=== PATIENT | female | born 1975 | race Caucasian/White ===

== ENCOUNTER 2016-04-16 14:57 | Emergency (ER) | payer OTHER ==
[~2016-04-16] VITALS: Ht 162.6 cm; Wt 94.9 kg
[~2016-04-16 14:57] MED LIST: ALBU18002 PO; HYDR-5688 PO
[2016-04-16 15:03] VITALS: TEMP 36.6; Ht 162.6 cm; Wt 94.9 kg
--- NOTE | 2016-04-16 15:23 | EMERGENCY ROOM VISIT NOTE ---
History First contact with patient: 15:05 Chief Complaint: BACK PAIN Stated Complaint: CHEST PAIN History of Present Illness The patient is a 41 year old female who presents to the Emergency Room with complaints of low back pain Back pain started this morning woke her up from sleep. Chronic back pain 1-2/10 , but today 10/10 severity. Radiating up along spine and into chest. Constant. Sharp pressure pain. Exacerbated by movement, but even sitting/stnading/lying still does no relieve the pain. Unsure of pain trigger. Experiencing psychological reduced ROM because she's afraid to hurt her back further. Cervical ROM preserved but painful especially on forward flexion and flexion to left. Patient is able to ambulate. Tingling in the fingertip. No saddle paresthesia. No fecal or urinary incontinence. Takes neurontin, but not helpful today. Chest pain started today around lunch. Described as a sharp pain that fades to dull pain at centre of chest. Intermittent. worse on inspiration. Currently having the symptoms. No dyspnea at rest. when very painful, difficult to get air in. Nausea when severe pain present. No vomiting. No abdominal pain, no diarrhea or constipation No fever or URI symptoms. No trauma recently, no falls Never smoker, no long haul flights or long commutes, on OCP, never smoker No hx clots in lungs or legs Review of Systems See HPI for pertinent positives and negatives. A total of ten systems were reviewed and were otherwise negative. Past Medical/Surgical History Medical Problems: (1) Anxiety State Nos (2) Asthma (3) Asthma, Unspecified (4) Bipolar II disorder (5) Chronic back pain (6) Depression (7) Kidney stone (8) Migraine Unspecified W/O Intractable Migraine (9) Pancreatitis (10) Pyelonephritis (11) Suicidal Ideation Surgical Problems: (1) S/P cholecystectomy Family History Diabetes mellitus FH: cancer FH: heart disease FH: lung disease FHx: gallbladder disease Kidney disease or stones Social History Smoking Status: Never Smoker Alcohol Use: none Drug Use: none Marital Status: single Housing Status: lives with family Occupation Status: disabled Current/Historical Medications Scheduled Control Pills ( Control Pills), 1 TAB PO DAILY Dicyclomine HCl (Dicyclomine HCl), 20 MG PO BID Fluticasone Propionate (Fluticasone Propionate), 2 SPRAYS JERRY QAM Fluticasone Propionate (Inhala (Flovent Diskus), 1 PUFF INH BID Gabapentin (Gabapentin), 600 MG PO TID Hydroxyzine HCl (Hydroxyzine Pamoate), 75 MG PO HS Lamotrigine (Lamotrigine), 200 MG PO QAM Levothyroxine Sodium (Levothyroxine Sodium), 50 MCG PO QAM Loratadine (Claritin), 10 MG PO QAM Pantoprazole (Pantoprazole Sodium), 40 MG PO QAM Prazosin Hcl (Prazosin), 4 MG PO HS Topiramate (Topiramate), 100 MG PO BID Venlafaxine Hcl (Effexor Extended Rel), 150 MG PO QAM Scheduled PRN Albuterol Sulfate (Proair Respiclick), 2 PUFFS PO Q4 PRN for Cough Cyclobenzaprine Hcl (Flexeril), 10 MG PO HS PRN for Muscle Spasms Epinephrine (Epipen), 0.3 MG IM UD PRN for ALLERGIC REACTION Hydrocodone/Acetaminophen 5MG/325MG ([place] 5MG/325MG), 1 TABLET PO Q6 PRN for Pain Sumatriptan Succinate (Imitrex), 100 MG PO UD PRN for Migraine Allergies Coded Allergies: Morphine (Verified Adverse Reaction, Intermediate, HALLUCINATIONS, 04/16/16) Physical Exam Vital Signs Date Time Temp Pulse Resp B/P Pulse Ox O2 Delivery O2 Flow Rate FiO2 04/16/16 18:41 89 18 146/96 95 Room Air 04/16/16 17:39 78 18 136/96 97 Room Air 04/16/16 16:54 86 16 157/101 97 Room Air 04/16/16 15:06 89 04/16/16 15:03 36.6 88 18 155/95 95 Room Air Physical Exam GENERAL: alert, well appearing, thin, sitting in bed, mild distress, non-toxic HEAD: Normocephalic, atraumatic. No sinus tenderness. EYES: PERRL, EOMI, normal conjunctiva OROPHARYNX: no exudate, no erythema, lips, buccal mucosa, and tongue normal and mucous membranes are moist NECK: supple, no nuchal rigidity, no adenopathy, non-tender LUNGS: Clear to auscultation. Normal chest wall mechanics, good air entry. No crepitations, crackles, or wheezes HEART: no murmurs, S1 normal and S2 normal CHEST: No reproducible tenderness. ABDOMEN: abdomen soft, non-tender, normo-active bowel sounds, no masses, no rebound or guarding. BACK: Back is symmetrical on inspection, no deformities, midline tenderness at l4 and L5 region and t2-T3 region, localized, no CVA tenderness. SKIN: Warm, pink, dry. No erythema, rashes, or bruising. EXTREMITIES: Grossly normal. Moving all 4 limbs, strength 5/5. No pitting edema. Calves non tender. NEURO: Alert, Ox3. No focal deficits. Normal sensorium, cranial nerves II-XII grossly intact, normal speech. Kernig and Brudzinski negative PSYCH: Mood and affect appropriate. Medical Decision & Procedures ER Provider Diagnostic Interpretation: CHEST ONE VIEW PORTABLE CLINICAL HISTORY: Pleuritic chest pain. Chest pressure. COMPARISON STUDY: 03/12/2016 FINDINGS: The heart is at the upper limits of normal in size. There is no failure. There is no focal pulmonary consolidation. There are no pleural effusions.[ IMPRESSION: No active disease in the chest. Laboratory Results 04/16/16 16:15 Red Blood Count 4.26, Mean Corpuscular Volume 87.3, Mean Corpuscular Hemoglobin 29.3, Mean Corpuscular Hemoglobin Concent 33.6, Mean Platelet Volume 8.6, Neutrophils (%) (Auto) 64.4, Lymphocytes (%) (Auto) 28.2, Monocytes (%) (Auto) 5.1, Eosinophils (%) (Auto) 1.2, Basophils (%) (Auto) 0.5, Neutrophils # (Auto) 6.59, Lymphocytes # (Auto) 2.88, Monocytes # (Auto) 0.52, Eosinophils # (Auto) 0.12, Basophils # (Auto) 0.05 04/16/16 16:15 Test 04/16/16 16:15 04/16/16 17:27 White Blood Count 10.22 K/uL (4.8-10.8) Red Blood Count 4.26 M/uL (4.2-5.4) Hemoglobin 12.5 g/dL (12.0-16.0) Hematocrit 37.2 % (37-47) Mean Corpuscular Volume 87.3 fL (80-100) Mean Corpuscular Hemoglobin 29.3 pg (25-34) Mean Corpuscular Hemoglobin Concent 33.6 g/dl (32-36) Platelet Count 336 K/uL (130-400) Mean Platelet Volume 8.6 fL (7.4-10.4) Neutrophils (%) (Auto) 64.4 % Lymphocytes (%) (Auto) 28.2 % Monocytes (%) (Auto) 5.1 % Eosinophils (%) (Auto) 1.2 % Basophils (%) (Auto) 0.5 % Neutrophils # (Auto) 6.59 K/uL (1.4-6.5) Lymphocytes # (Auto) 2.88 K/uL (1.2-3.4) Monocytes # (Auto) 0.52 K/uL (0.11-0.59) Eosinophils # (Auto) 0.12 K/uL (0-0.5) Basophils # (Auto) 0.05 K/uL (0-0.2) RDW Standard Deviation 40.8 fL (36.4-46.3) RDW Coefficient of Variation 12.7 % (11.5-14.5) Immature Granulocyte % (Auto) 0.6 % Immature Granulocyte # (Auto) 0.06 K/uL (0.00-0.02) Anion Gap 9.0 mmol/L (3-11) Est Creatinine Clear Calc Drug Dose 90.1 ml/min Estimated GFR () 90.8 Estimated GFR (Non- 78.3 BUN/Creatinine Ratio 13.8 (10-20) Calcium Level 8.8 mg/dl (8.5-10.1) Troponin I < 0.015 ng/ml (0-0.045) Urine Color YELLOW Urine Appearance CLOUDY (CLEAR) Urine pH 7.5 (4.5-7.5) Urine Specific [place] 1.020 (1.000-1.030) Urine Protein NEG (NEG) Urine Glucose (UA) NEG (NEG) Urine Ketones NEG (NEG) Urine Occult Blood NEG (NEG) Urine Nitrite NEG (NEG) Urine Bilirubin NEG (NEG) Urine Urobilinogen NEG (NEG) Urine Leukocyte Esterase SMALL (NEG) Urine WBC (Auto) 10-30 /hpf (0-5) Urine RBC (Auto) 0-4 /hpf (0-4) Urine Hyaline Casts (Auto) 1-5 /lpf (0-5) Urine Epithelial Cells (Auto) >30 /lpf (0-5) Urine Bacteria (Auto) 2+ (NEG) Urine Test NEG (NEG) Medications Administered Medications (Trade) Dose Ordered Sig/Shelli Route Start Time Stop Time Status Last Admin Dose Admin Ondansetron HCl (Zofran Inj) 4 mg NOW STAT IV 04/16/16 15:46 04/16/16 16:00 DC 04/16/16 16:20 4 MG Ketorolac Tromethamine (Toradol Inj) 30 mg NOW STAT IV 04/16/16 15:46 04/16/16 16:00 DC 04/16/16 16:20 30 MG Hydromorphone HCl (Dilaudid Inj) 1 mg NOW STAT IV 04/16/16 17:32 04/16/16 17:34 DC 04/16/16 17:39 1 MG Medical Decision 41 year old female presented with low back pain, neck pain, chest pain The patient was evaluated in room C11. A complete history and physical exam was performed. Differential diagnoses includes but is not limited to acute coronary syndrome, myocardial infarction, pericarditis, pulmonary embolus, aortic dissection, pneumonia, pneumothorax, musculoskeletal, spine trauma, chronic back pain, infection, inflammation, anxiety Patient was given 30mg IV toradol for symptom relief. EKG showed 78 bpm, normal sinus rhythm, no acute ischemic change, no ectopy, no significant change frpm EKG on 03/12 Lab work was performed. CBC, BMP, troponin were all within normal limits. CXR reported no acute chest pathology Urine screen was negative for , and urinalysis showed contamination, with positive leukocyte esterase and WBC. As such, sample sent for culture. Patient continues to request further management of back. Given her abdominal CT a few days ago, it was explained this is not necessary. Patient given 1mg Dilaudid for further pain management. On discharge, patient advised for conservative management with Tylenol or Motrin for pain relief and ifollow up with PCP, for chronic pain management. Patient understands and agreeable with care plan. Patient discharged home well. Impression Primary Impression: Back pain at L4-L5 level Additional Impressions: Chest pain, Neck pain Departure Information Dispostion Home / Self-Care Condition POOR Referrals Dennis Khan M.D. (PCP) Patient Instructions A Signature Page, My [facility] [place]
[2016-04-16] MEDS ORDERED: ONDANSETRON INJ 2 MG/ML 2 ML VIAL IV STA (15:46)
[2016-04-16] MEDS ORDERED: KETOROLAC TROMETHAMINE 30 MG/ML VIAL IV STA (15:46)
--- NOTE | 2016-04-16 16:22 | DIAGNOSTIC IMAGING REPORT ---
CHEST ONE VIEW PORTABLE CLINICAL HISTORY: Pleuritic chest pain. Chest pressure. COMPARISON STUDY: 03/12/2016 FINDINGS: The heart is at the upper limits of normal in size. There is no failure. There is no focal pulmonary consolidation. There are no pleural effusions.[ IMPRESSION: No active disease in the chest. Electronically signed by: Gray Schultz M.D. 04/16/2016 4:21 PM
[2016-04-16 16:26] LABS: HEMATOCRIT 37.2 % (37-47); MEAN CELL VOLUME 87.3 fL (80-100); MEAN CORPUSCULAR HEMOGLOBIN 29.3 pg (25-34); MEAN CORPUSCULAR HGB CONC 33.6 g/dl (32-36); MEAN PLATELET VOLUME 8.6 fL (7.4-10.4); PLATELET COUNT 336 K/uL (130-400); RED BLOOD COUNT 4.26 M/uL (4.2-5.4); WHITE BLOOD COUNT 10.22 K/uL (4.8-10.8)
[2016-04-16 16:41] LABS: BASO % 0.5 %; BASO ABS # 0.05 K/uL (0-0.2); COMPLETE YES; EOS % 1.2 %; IG% 0.6 %; LYMPH % 28.2 %; LYMPH ABS # 2.88 K/uL (1.2-3.4); MONO % 5.1 %; NEUT % 64.4 %
[2016-04-16 16:54] LABS: BLOOD UREA NITROGEN 12 mg/dl (7-18); BUN/CREATININE RATIO 13.8 (10-20); CALCIUM 8.8 mg/dl (8.5-10.1); CARBON DIOXIDE 23 mmol/L (21-32); CHLORIDE 110 mmol/L (98-107); GLUCOSE 82 mg/dl (70-99); POTASSIUM 3.8 mmol/L (3.5-5.1); SODIUM 142 mmol/L (136-145)
[2016-04-16] MEDS ORDERED: HYDROmorphone INJ 1 MG/ML SYR IV STA (17:32)
[2016-04-16 17:52] LABS: PREG INTERNAL NEGATIVE QC NEG CLEAR BACKGROUND; PREG INTERNAL POSITIVE QC POS CONTROL LINE
[2016-04-16 17:53] LABS: URINE APPEARANCE CLOUDY (CLEAR); URINE BILIRUBIN NEG (NEG); URINE COLOR YELLOW; URINE EPITHELIAL CELL AUTO >30 /lpf (0-5); URINE NITRITE NEG (NEG); URINE PH 7.5 (4.5-7.5); UROBILINOGEN NEG (NEG)
[2016-04-16 17:56] LABS: MANUAL MICROSCOPIC REQUIRED? NO; REVIEW REQ? NO
[2016-04-16 18:41] VITALS: BP 146/96; PULSE 89; O2SAT 95
--- NOTE | 2016-04-18 02:08 | EMERGENCY ROOM VISIT NOTE ---
History Report prepared by Antonieta: Nancy Lezama Under the Supervision of: Dr. Anders Vizcarra M.D. First contact with patient: 15:05 Chief Complaint: BACK PAIN Stated Complaint: CHEST PAIN History of Present Illness The patient is a 41 year old female who presents to the Emergency Room with complaints of constant lower back pain since this morning. She woke up with the pain today. She describes her pain as sharp and rates it as a 10/10 in severity. Her pain radiates up into her chest and neck. Movement exacerbates her pain. She is also experiencing tingling in her fingertips and nausea. The patient states that around noon today she started experiencing sharp chest pains intermittently that are worse with inspiration. She denies fecal or urinary incontinence, trauma or recent falls, abdominal pain, vomiting, fever, and cough. She denies recent long trips and chance of . Source of History: patient Onset: this morning Position: back (lower) Symptom Intensity: 10/10 Quality: sharp Timing: constant Modifying Factors (Worsening): breathing (inspiration), movement Associated Symptoms: + chest pain, + neck pain, No abdominal pain, No cough , No fevers, No urinary symptoms, No vomiting Review of Systems See HPI for pertinent positives & negatives. A total of 10 systems reviewed and were otherwise negative. Past Medical & Surgical Medical Problems: (1) Anxiety State Nos (2) Asthma (3) Asthma, Unspecified (4) Bipolar II disorder (5) Chronic back pain (6) Depression (7) Kidney stone (8) Migraine Unspecified W/O Intractable Migraine (9) Pancreatitis (10) Pyelonephritis (11) Suicidal Ideation Surgical Problems: (1) S/P cholecystectomy Old medical records were reviewed. Nurse's notes were reviewed and I agree with. Family History Diabetes mellitus FH: cancer FH: heart disease FH: lung disease FHx: gallbladder disease Kidney disease or stones Social History Smoking Status: Never Smoker Alcohol Use: none Drug Use: none Marital Status: single Housing Status: lives with family Occupation Status: disabled Current/Historical Medications Scheduled Control Pills ( Control Pills), 1 TAB PO DAILY Dicyclomine HCl (Dicyclomine HCl), 20 MG PO BID Fluticasone Propionate (Fluticasone Propionate), 2 SPRAYS JERRY QAM Fluticasone Propionate (Inhala (Flovent Diskus), 1 PUFF INH BID Gabapentin (Gabapentin), 600 MG PO TID Hydroxyzine HCl (Hydroxyzine Pamoate), 75 MG PO HS Lamotrigine (Lamotrigine), 200 MG PO QAM Levothyroxine Sodium (Levothyroxine Sodium), 50 MCG PO QAM Loratadine (Claritin), 10 MG PO QAM Pantoprazole (Pantoprazole Sodium), 40 MG PO QAM Prazosin Hcl (Prazosin), 4 MG PO HS Topiramate (Topiramate), 100 MG PO BID Venlafaxine Hcl (Effexor Extended Rel), 150 MG PO QAM Scheduled PRN Albuterol Sulfate (Proair Respiclick), 2 PUFFS PO Q4 PRN for Cough Cyclobenzaprine Hcl (Flexeril), 10 MG PO HS PRN for Muscle Spasms Epinephrine (Epipen), 0.3 MG IM UD PRN for ALLERGIC REACTION Hydrocodone/Acetaminophen 5MG/325MG ([place] 5MG/325MG), 1 TABLET PO Q6 PRN for Pain Sumatriptan Succinate (Imitrex), 100 MG PO UD PRN for Migraine Allergies Coded Allergies: Morphine (Verified Adverse Reaction, Intermediate, HALLUCINATIONS, 04/16/16) Physical Exam Vital Signs Date Time Temp Pulse Resp B/P Pulse Ox O2 Delivery O2 Flow Rate FiO2 04/16/16 18:41 89 18 146/96 95 Room Air 04/16/16 17:39 78 18 136/96 97 Room Air 04/16/16 16:54 86 16 157/101 97 Room Air 04/16/16 15:06 89 04/16/16 15:03 36.6 88 18 155/95 95 Room Air Physical Exam General: Well developed well nourished non ill appearing young female in no acute distress, breathing comfortably on room air. Normal speech HEENT: Normal cephalic atraumatic. Pupils are equal round and reactive to light. Extraocular movements are intact. Oropharynx is pink with moist mucous membranes. No swelling of the mouth lips or tongue. Neck: Supple with a midline trachea. No meningeal signs or stiffness, no JVD or bruits. No Stridor. Chest: Clear to auscultation bilaterally. No wheezes or rhonchi. No increased work of breathing. Tender to palpation of central sternal area. Heart: regular rate and rhythm. Abdomen: Soft nontender, nondistended without rebound guarding or rigidity. Extremities: No cyanosis clubbing or edema. No calf tenderness or assymetry Spine/Back. Tender to palpation. Skin: Good turgor without rashes. Neurologic exam: Cranial nerves two through 12 are intact. Motor and sensation are intact and symmetrical throughout. Medical Decision & Procedures ER Provider Diagnostic Interpretation: Radiology results as stated below per my review and radiologist interpretation: CHEST ONE VIEW PORTABLE CLINICAL HISTORY: Pleuritic chest pain. Chest pressure. COMPARISON STUDY: 03/12/2016 FINDINGS: The heart is at the upper limits of normal in size. There is no failure. There is no focal pulmonary consolidation. There are no pleural effusions.[ IMPRESSION: No active disease in the chest. Electronically signed by: Gray Schultz M.D. 04/16/2016 4:21 PM Laboratory Results 04/16/16 16:15 Red Blood Count 4.26, Mean Corpuscular Volume 87.3, Mean Corpuscular Hemoglobin 29.3, Mean Corpuscular Hemoglobin Concent 33.6, Mean Platelet Volume 8.6, Neutrophils (%) (Auto) 64.4, Lymphocytes (%) (Auto) 28.2, Monocytes (%) (Auto) 5.1, Eosinophils (%) (Auto) 1.2, Basophils (%) (Auto) 0.5, Neutrophils # (Auto) 6.59, Lymphocytes # (Auto) 2.88, Monocytes # (Auto) 0.52, Eosinophils # (Auto) 0.12, Basophils # (Auto) 0.05 04/16/16 16:15 Test 04/16/16 16:15 04/16/16 17:27 White Blood Count 10.22 K/uL (4.8-10.8) Red Blood Count 4.26 M/uL (4.2-5.4) Hemoglobin 12.5 g/dL (12.0-16.0) Hematocrit 37.2 % (37-47) Mean Corpuscular Volume 87.3 fL (80-100) Mean Corpuscular Hemoglobin 29.3 pg (25-34) Mean Corpuscular Hemoglobin Concent 33.6 g/dl (32-36) Platelet Count 336 K/uL (130-400) Mean Platelet Volume 8.6 fL (7.4-10.4) Neutrophils (%) (Auto) 64.4 % Lymphocytes (%) (Auto) 28.2 % Monocytes (%) (Auto) 5.1 % Eosinophils (%) (Auto) 1.2 % Basophils (%) (Auto) 0.5 % Neutrophils # (Auto) 6.59 K/uL (1.4-6.5) Lymphocytes # (Auto) 2.88 K/uL (1.2-3.4) Monocytes # (Auto) 0.52 K/uL (0.11-0.59) Eosinophils # (Auto) 0.12 K/uL (0-0.5) Basophils # (Auto) 0.05 K/uL (0-0.2) RDW Standard Deviation 40.8 fL (36.4-46.3) RDW Coefficient of Variation 12.7 % (11.5-14.5) Immature Granulocyte % (Auto) 0.6 % Immature Granulocyte # (Auto) 0.06 K/uL (0.00-0.02) Anion Gap 9.0 mmol/L (3-11) Est Creatinine Clear Calc Drug Dose 90.1 ml/min Estimated GFR () 90.8 Estimated GFR (Non- 78.3 BUN/Creatinine Ratio 13.8 (10-20) Calcium Level 8.8 mg/dl (8.5-10.1) Troponin I < 0.015 ng/ml (0-0.045) Urine Color YELLOW Urine Appearance CLOUDY (CLEAR) Urine pH 7.5 (4.5-7.5) Urine Specific [place] 1.020 (1.000-1.030) Urine Protein NEG (NEG) Urine Glucose (UA) NEG (NEG) Urine Ketones NEG (NEG) Urine Occult Blood NEG (NEG) Urine Nitrite NEG (NEG) Urine Bilirubin NEG (NEG) Urine Urobilinogen NEG (NEG) Urine Leukocyte Esterase SMALL (NEG) Urine WBC (Auto) 10-30 /hpf (0-5) Urine RBC (Auto) 0-4 /hpf (0-4) Urine Hyaline Casts (Auto) 1-5 /lpf (0-5) Urine Epithelial Cells (Auto) >30 /lpf (0-5) Urine Bacteria (Auto) 2+ (NEG) Urine Test NEG (NEG) Laboratory studies as stated above per my review. Medications Administered Medications (Trade) Dose Ordered Sig/Shelli Route Start Time Stop Time Status Last Admin Dose Admin Ondansetron HCl (Zofran Inj) 4 mg NOW STAT IV 04/16/16 15:46 04/16/16 16:00 DC 04/16/16 16:20 4 MG Ketorolac Tromethamine (Toradol Inj) 30 mg NOW STAT IV 04/16/16 15:46 04/16/16 16:00 DC 04/16/16 16:20 30 MG Hydromorphone HCl (Dilaudid Inj) 1 mg NOW STAT IV 04/16/16 17:32 04/16/16 17:34 DC 04/16/16 17:39 1 MG ECG Indication: chest pain Rate (beats per minute): 78 Rhythm: normal sinus Findings: no acute ischemic change, no ectopy Comparison ECG Date: 03/12/16 Change: no significant change ED Course 1505: Past medical records reviewed. The patient was evaluated in room C11B, and a complete history and physical examination were performed. 1546: Toradol 30 mg IV, Zofran 4 mg IV 1729: I reassessed the patient at this time. She is still experiencing some pain. I discussed the results and treatment plan with the patient. I answered all pertaining questions that she had. She expressed understanding and verbalized agreement. The patient will be discharged home after receiving medication. 1732: Dilaudid 1 mg IV Medical Decision Differential diagnoses includes musculoskeletal, acute coronary syndrome, electrolyte or metabolic abnormality, anxiety. This patient comes in as described above. I do know her well from multiple previous visits. she does have chronic pain issues primarily related to abdominal pain. She seen here a couple days ago and a CAT scan of her abdomen and there is no obstructive uropathy or any other acute findings. IV access was established, multiple blood tests was obtained. EKG and chest x-ray was obtained. she has nothing to suggest acute coronary syndrome or arrhythmia. Her troponin is not elevated. chest x-ray was unremarkable and she hasno pneumothorax. she has no acute electrolyte or metabolic abnormality. She has nothing to suggest infection or sepsis. she was initially given IV Toradol and IV Zofran .she said that was started to feel better but required IV Dilaudid and she was given Dilaudid 1 mg IV. She is on a narcotic restriction plan for 2 shots a month. She is feeling better and would like to go home. she can use anti-inflammatories and return if: Increasing pain, worsening of symptoms, fever or chills, any problems or concerns. she was encouraged to follow-up with her doctor in 1 to 2 days for recheck. She was happy with plan and discharged to home. Impression Primary Impression: Precordial chest pain Additional Impression: Neck pain Scribe Attestation The scribe's documentation has been prepared under my direction and personally reviewed by me in its entirety. I confirm that the note above accurately reflects all work, treatment, procedures, and medical decision making performed by me. Departure Information Dispostion Home / Self-Care Referrals Dennis Khan M.D. (PCP) Forms HOME CARE DOCUMENTATION FORM, IMPORTANT VISIT INFORMATION Patient Instructions A Signature Page, ED Back Pain Acute Chronic, My [facility] Additional Instructions You were treated today in ED today for back, neck and chest pain. Given your normal lab work, ECG and chest xray, it is likely your symptoms are of musculoskeletal origin. It is recommended you apply warm compress to the areas and in addition to your Neurontin, use over the counter pain medication including: - Regular strength (325mg/tab) Tylenol (acetaminophen) 2 tabs every 4-6 hours as needed. Do not exceed 12 tablets in a 24 hour period. Avoid taking more than 4 grams (4000 mg) of Tylenol per day. This includes any other sources of acetaminophen you may take on a regular basis. - Regular strength (200 mg/tab) Advil (ibuprofen) 1-2 tabs every 4-6 hours as needed. Do not exceed a dose of 3200 mg per day. Follow up with your PCP for appropriate piano sounding board matcher management is advisable. You have been examined and treated today on an emergency basis only. This is not a substitute for, or an effort to provide, complete comprehensive medical care. It is impossible to recognize and treat all injuries or illnesses in a single emergency department visit. It is therefore important that you make a follow up with your physician for close monitoring. Return for worsening symptoms or if you develop fever, vomiting, or any other concerning symptoms weakness, paralysis, incontinence etc.
[2016-08-21] MEDS ORDERED: LAMO1TAB21 PO (14:38)
[2016-08-21] MEDS ORDERED: TPM100 PO (16:08)
[2016-08-21] MEDS ORDERED: VST25HP PO (16:08)
[2017-01-13] MEDS ORDERED: KFL500 PO (13:18)
[2017-02-17] MEDS ORDERED: CEPH-571 PO (19:20)
[2017-03-25] MEDS ORDERED: BCTCR/30 TOP (14:30)
[2017-03-25] MEDS ORDERED: RIZA1TAB7 PO (14:30)
[2017-03-25] MEDS ORDERED: FLUT1AER4 INH (14:38)
[2017-03-25] MEDS ORDERED: DICY1TAB25 PO (16:08)
[2017-03-25] MEDS ORDERED: PRAZ2CAP2 PO (16:08)
[2017-03-25] MEDS ORDERED: CYCL10TA6 PO ×2 (16:18→17:14)
[2017-03-25] MEDS ORDERED: EFFSR150 PO (16:35)
[2017-03-25] MEDS ORDERED: NRN600 PO (16:35)
[2017-03-25] MEDS ORDERED: CYAN10005 PO (17:14)
[2017-03-25] MEDS ORDERED: ALBU18002 INH (18:06)
[2017-03-25] MEDS ORDERED: FERR1TAB62 PO (18:06)
[2017-03-25] MEDS ORDERED: MELO15TA4 PO (18:30)
[2017-03-25] MEDS ORDERED: LAMO200T35 PO (18:30)
[2017-03-25] MEDS ORDERED: HYDR-3124 PO (18:31)
[2017-03-25] MEDS ORDERED: TOPI100T34 PO (18:31)
[2017-03-25] MEDS ORDERED: FLNIN/ NAE (20:13)
[2017-03-25] MEDS ORDERED: PANT40TA2 PO (20:13)
[2017-03-25] MEDS ORDERED: LEVO50TA6 PO (20:13)
[2017-03-25] MEDS ORDERED: CLR10 PO (20:17)
[2017-03-25] MEDS ORDERED: NORE-3 PO (20:18)
== END 2016-04-16 18:43 | disposition home or self-care (01) ==
LOC: EDBD 14:57 → C.EDC 14:58
DX: M54.5 Low back pain (principal); R07.9 Chest pain, unspecified; M54.2 Cervicalgia; Z79.3 Long term (current) use of hormonal contraceptives; F31.81 Bipolar II disorder; Z79.899 Other long term (current) drug therapy

== ENCOUNTER 2016-04-22 15:00 | Emergency (ER) | payer OTHER ==
[~2016-04-22] VITALS: Ht 162.6 cm; Wt 94.5 kg
[2016-04-22 15:09] VITALS: TEMP 37.2; Ht 162.6 cm; Wt 94.5 kg
[2016-04-22] MEDS ORDERED: OXYCODONE HCL IR 5 MG TAB (IMMEDIATE RELEASE) PO STA (15:12)
[2016-04-22 15:35] LABS: URINE APPEARANCE CLOUDY (CLEAR); URINE BILIRUBIN NEG (NEG); URINE COLOR YELLOW; URINE EPITHELIAL CELL AUTO >30 /lpf (0-5); URINE NITRITE NEG (NEG); URINE PH 7.5 (4.5-7.5); URINE SPECIFIC GRAVITY 1.019 (1.000-1.030); UROBILINOGEN NEG (NEG)
[2016-04-22 15:39] LABS: MANUAL MICROSCOPIC REQUIRED? NO; REVIEW REQ? YES
--- NOTE | 2016-04-22 16:15 | DIAGNOSTIC IMAGING REPORT ---
L-SPINE MIN 4 VIEWS ROUTINE CLINICAL HISTORY: Back pain. COMPARISON: Lumbar spine radiographs September 24, 2011 FINDINGS: There are cholecystectomy clips. There is mild rightward curvature of the lumbar spine. Vertebral body heights are maintained. No fracture or suspicious lesion is present. Mild multilevel degenerative disc disease is present. Sacroiliac joints are intact. IMPRESSION: 1. No acute lumbar spine fracture or subluxation. 2. Mild multilevel degenerative disc disease. Electronically signed by: Saud Espinosa M.D. 04/22/2016 4:13 PM Dictated Date/Time: 04/22/2016 4:12 PM
[2016-04-22 17:26] VITALS: BP 148/86; PULSE 81; O2SAT 98
--- NOTE | 2016-04-22 20:21 | EMERGENCY ROOM VISIT NOTE ---
History Report prepared by Antonieta: Jane Corona Under the Supervision of: Dr. Anders Vizcarra M.D. 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 The patient rates her discomfort as a 10/10 in severity. The pain is worse with movement and she states that she "wobbles while walking" due to the pain. The patient came to the ED via ambulance from home. She states that she has an extra vertebrae in her back and was wondering if her back pain was worse as a result of that. The patient is also experiencing diffuse abdominal pain and intermittent tingling in her bilateral hands and feet. She denies any weakness or numbness in her legs along with hematuria and burning with urination. She also denies any problems with urinating or with bowel movements. The patient states that she has Neurontin at home for pain from her fibromyalgia. She denies any recent falls and any chance of . 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 A total of 10 systems reviewed and were otherwise negative. Past Medical & Surgical Medical Problems: (1) Anxiety State Nos (2) Asthma (3) Asthma, Unspecified (4) Bipolar II disorder (5) Chronic back pain (6) Depression (7) Kidney stone (8) Migraine Unspecified W/O Intractable Migraine (9) Pancreatitis (10) Pyelonephritis (11) Suicidal Ideation Surgical Problems: (1) S/P cholecystectomy Old medical records were reviewed. Nurse's notes were reviewed and I agree with. Family History Diabetes mellitus FH: cancer FH: heart disease FH: lung disease FHx: gallbladder disease Kidney disease or stones Social History Smoking Status: Never Smoker Alcohol Use: none Drug Use: none Marital Status: single Housing Status: lives with family Occupation Status: disabled Current/Historical Medications Scheduled Control Pills ( Control Pills), 1 TAB PO DAILY Dicyclomine HCl (Dicyclomine HCl), 20 MG PO BID Fluticasone Propionate (Fluticasone Propionate), 2 SPRAYS JERRY QAM Fluticasone Propionate (Inhala (Flovent Diskus), 1 PUFF INH BID Gabapentin (Gabapentin), 600 MG PO TID Hydroxyzine HCl (Hydroxyzine Pamoate), 75 MG PO HS Lamotrigine (Lamotrigine), 200 MG PO QAM Levothyroxine Sodium (Levothyroxine Sodium), 50 MCG PO QAM Loratadine (Claritin), 10 MG PO QAM Pantoprazole (Pantoprazole Sodium), 40 MG PO QAM Prazosin Hcl (Prazosin), 4 MG PO HS Topiramate (Topiramate), 100 MG PO BID Venlafaxine Hcl (Effexor Extended Rel), 150 MG PO QAM Scheduled PRN Albuterol Sulfate (Proair Respiclick), 2 PUFFS PO Q4 PRN for Cough Cyclobenzaprine Hcl (Flexeril), 10 MG PO HS PRN for Muscle Spasms Epinephrine (Epipen), 0.3 MG IM UD PRN for ALLERGIC REACTION Hydrocodone/Acetaminophen 5MG/325MG ([place] 5MG/325MG), 1 TABLET PO Q6 PRN for Pain Sumatriptan Succinate (Imitrex), 100 MG PO UD PRN for Migraine Allergies Coded Allergies: Morphine (Verified Adverse Reaction, Intermediate, HALLUCINATIONS, 04/22/16) Physical Exam Vital Signs Date Time Temp Pulse Resp B/P Pulse Ox O2 Delivery O2 Flow Rate FiO2 04/22/16 17:26 81 18 148/86 98 04/22/16 15:09 37.2 95 20 162/92 97 Room Air Physical Exam General: Well developed well nourished non-ill appearing middle-aged female in no acute distress, breathing comfortably on room air. Normal speech HEENT: Normal cephalic atraumatic. Pupils are equal round and reactive to light. Extraocular movements are intact. Oropharynx is pink with moist mucous membranes. No swelling of the mouth lips or tongue. Neck: Supple with a midline trachea. No meningeal signs or stiffness, no JVD or bruits. No Stridor. Chest: Clear to auscultation bilaterally. No wheezes or rhonchi. No increased work of breathing. Heart: regular rate and rhythm. Abdomen: Soft nontender, nondistended without rebound guarding or rigidity. Extremities: No cyanosis clubbing or edema. No calf tenderness or assymetry Spine/Back. Mildly tender in upper lumbar region slightly to the right. No CVA tenderness Skin: Good turgor without rashes. Neurologic exam: Cranial nerves two through 12 are intact. Motor and sensation are intact and symmetrical throughout. Medical Decision & Procedures ER Provider Diagnostic Interpretation: X-ray results as stated below per interpretation by me and the radiologist: L-SPINE MIN 4 VIEWS ROUTINE IMPRESSION: 1. No acute lumbar spine fracture or subluxation. 2. Mild multilevel degenerative disc disease. Electronically signed by: Saud Espinosa M.D. 04/22/2016 4:13 PM Dictated Date/Time: 04/22/2016 4:12 PM Laboratory Results Test 04/22/16 00:00 04/22/16 15:15 Urine Color YELLOW Urine Appearance CLOUDY (CLEAR) Urine pH 7.5 (4.5-7.5) Urine Specific [place] 1.019 (1.000-1.030) Urine Protein NEG (NEG) Urine Glucose (UA) NEG (NEG) Urine Ketones NEG (NEG) Urine Occult Blood NEG (NEG) Urine Nitrite NEG (NEG) Urine Bilirubin NEG (NEG) Urine Urobilinogen NEG (NEG) Urine Leukocyte Esterase MODERATE (NEG) Urine WBC (Auto) 10-30 /hpf (0-5) Urine RBC (Auto) 0-4 /hpf (0-4) Urine Hyaline Casts (Auto) 1-5 /lpf (0-5) Urine Epithelial Cells (Auto) >30 /lpf (0-5) Urine Bacteria (Auto) 2+ (NEG) Urine Renal Epithelial Cells /lpf (0-5) Urine Test NEG (NEG) Laboratory studies as stated above per my review. Medications Administered Medications (Trade) Dose Ordered Sig/Shelli Route Start Time Stop Time Status Last Admin Dose Admin Oxycodone HCl (Roxicodone Immediate Rel Tab) 5 mg NOW STAT PO 04/22/16 15:12 04/22/16 15:14 DC 04/22/16 15:21 5 MG ED Course 1509: Past medical records reviewed. The patient was evaluated in room A2, and a complete history and physical examination were performed. 1512: Ordered Oxycodone HCl 5 mg PO 1717: Upon reevaluation, the patient is doing well. I discussed the results and treatment plan with her. She verbalized agreement of the treatment plan. The patient was discharged home. Medical Decision Differentials include, but are not limited to; lumbar disc disease, kidney stone , UTI, , infection. This patient comes in as described above. She's been having lumbar back pain slightly to the right. She has had no injury. She has a normal neurologic exam and has no deficits. She has nothing to suggest cauda equina syndrome or infectious process. Urine was normal and do not suggest a UTI and urine was negative. I did get and lumbar film and there is no fracture or acute abnormality seen. She has some minimal degenerative changes. I reviewed her record. She recently had a CAT scan of her abdomen which did not show any acute abnormalities. She was given OxyIR by mouth here 1 and seems resting comfortably. This is mostly musculoskeletal type back pain. She may ultimately MRI when she follows up with her doctor. She should rest and drink plenty of fluids. Continue to use her Neurontin as well as she can use ibuprofen if needed for pain 1-2 pills every 4-6 hours as needed. She should return if: increasing pain, numbness or weakness, worsening of symptoms, any new problems or concerns. Impression Primary Impression: Low back pain Scribe Attestation The scribe's documentation has been prepared under my direction and personally reviewed by me in its entirety. I confirm that the note above accurately reflects all work, treatment, procedures, and medical decision making performed by me. Departure Information Dispostion Home / Self-Care Referrals Dennis Khan M.D. (PCP) Forms HOME CARE DOCUMENTATION FORM, IMPORTANT VISIT INFORMATION Additional Instructions Rest. Drink plenty of fluids. Continue your Neurontin. May also use ibuprofen 400 mg every 6 hours, take with food. [id number] Return if: Increasing pain, worsening of symptoms, fever or chills, numbness or weakness, any new problems or concerns Follow-up with your doctor Saturday or Saturday for recheck.
[2016-08-21] MEDS ORDERED: FLUT1AER4 INH (14:38)
[2016-08-21] MEDS ORDERED: LAMO1TAB21 PO (14:38)
[2016-08-21] MEDS ORDERED: TPM100 PO (16:08)
[2016-08-21] MEDS ORDERED: PRAZ2CAP2 PO (16:08)
[2016-08-21] MEDS ORDERED: DICY1TAB25 PO (16:08)
[2016-08-21] MEDS ORDERED: VST25HP PO (16:08)
[2016-08-21] MEDS ORDERED: CYCL10TA6 PO ×2 (16:18→17:14)
[2016-08-21] MEDS ORDERED: EFFSR150 PO (16:35)
[2016-08-21] MEDS ORDERED: NRN600 PO (16:35)
[2016-08-21] MEDS ORDERED: CYAN10005 PO (17:14)
[2016-08-21] MEDS ORDERED: FERR325T PO (18:06)
[2016-08-21] MEDS ORDERED: ALBU18002 INH (18:06)
[2016-08-21] MEDS ORDERED: FLNIN/ NAE (20:13)
[2016-08-21] MEDS ORDERED: LEVO50TA6 PO (20:13)
[2016-08-21] MEDS ORDERED: PRT/40 PO (20:13)
[2016-08-21] MEDS ORDERED: CLR10 PO (20:17)
[2016-08-21] MEDS ORDERED: EPP3/2 IM (21:52)
[2016-10-08] MEDS ORDERED: NORE-3 PO (20:18)
[2017-01-13] MEDS ORDERED: KFL500 PO (13:18)
== END 2016-04-22 17:27 | disposition home or self-care (01) ==
LOC: EDBD 15:00 → C.EDA 15:01
DX: M54.5 Low back pain (principal); R10.84 Generalized abdominal pain; R20.2 Paresthesia of skin; J45.909 Unspecified asthma, uncomplicated; F31.81 Bipolar II disorder

== ENCOUNTER 2016-04-26 17:02 | Emergency (ER) | payer OTHER ==
[~2016-04-26] VITALS: Ht 162.6 cm; Wt 93.0 kg
[2016-04-26 17:05] VITALS: TEMP 36.8; Ht 162.6 cm; Wt 93.0 kg
[2016-04-26] MEDS ORDERED: OXYCODONE HCL IR 5 MG TAB (IMMEDIATE RELEASE) PO STA (17:17)
--- NOTE | 2016-04-26 17:25 | EMERGENCY ROOM VISIT NOTE ---
History Report prepared by Antonieta: Anders Solorio Under the Supervision of: Dr. Anders Vizcarra M.D. 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 She notes hitting her head but does not recall losing consciousness. She notes that laughing worsens her symptoms. The patient denies any neck or chest pain. She does not take blood thinners. She notes she has depression and bipolar. No numbness or weakness in her legs. No bowel or bladder problems. 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 A total of 10 systems reviewed and were otherwise negative. Past Medical & Surgical Medical Problems: (1) Anxiety State Nos (2) Asthma (3) Asthma, Unspecified (4) Bipolar II disorder (5) Chronic back pain (6) Depression (7) Kidney stone (8) Migraine Unspecified W/O Intractable Migraine (9) Pancreatitis (10) Pyelonephritis (11) Suicidal Ideation Surgical Problems: (1) S/P cholecystectomy Old medical records were reviewed. Nurse's notes were reviewed and I agree with. Family History Diabetes mellitus FH: cancer FH: heart disease FH: lung disease FHx: gallbladder disease Kidney disease or stones Social History Smoking Status: Never Smoker Alcohol Use: none Drug Use: none Marital Status: single Housing Status: lives with family Occupation Status: disabled Current/Historical Medications Scheduled Control Pills ( Control Pills), 1 TAB PO DAILY Dicyclomine HCl (Dicyclomine HCl), 20 MG PO BID Fluticasone Propionate (Fluticasone Propionate), 2 SPRAYS JERRY QAM Fluticasone Propionate (Inhala (Flovent Diskus), 1 PUFF INH BID Gabapentin (Gabapentin), 600 MG PO TID Hydroxyzine HCl (Hydroxyzine Pamoate), 75 MG PO HS Lamotrigine (Lamotrigine), 200 MG PO QAM Levothyroxine Sodium (Levothyroxine Sodium), 50 MCG PO QAM Loratadine (Claritin), 10 MG PO QAM Pantoprazole (Pantoprazole Sodium), 40 MG PO QAM Prazosin Hcl (Prazosin), 4 MG PO HS Topiramate (Topiramate), 100 MG PO BID Venlafaxine Hcl (Effexor Extended Rel), 150 MG PO QAM Scheduled PRN Albuterol Sulfate (Proair Respiclick), 2 PUFFS PO Q4 PRN for Cough Cyclobenzaprine Hcl (Flexeril), 10 MG PO HS PRN for Muscle Spasms Epinephrine (Epipen), 0.3 MG IM UD PRN for ALLERGIC REACTION Sumatriptan Succinate (Imitrex), 100 MG PO UD PRN for Migraine Allergies Coded Allergies: Morphine (Verified Adverse Reaction, Intermediate, HALLUCINATIONS, 04/26/16 ) Physical Exam Vital Signs Date Time Temp Pulse Resp B/P Pulse Ox O2 Delivery O2 Flow Rate FiO2 04/26/16 19:21 89 20 120/86 97 04/26/16 17:05 36.8 95 20 150/95 95 Room Air Physical Exam General: Well developed well nourished in no acute distress, breathing comfortably on room air. Normal speech. Non-ill appearing, middle aged female. HEENT: Mild tenderness to the left posterior scalp. Pupils are equal round and reactive to light. Extraocular movements are intact. Oropharynx is pink with moist mucous membranes. No swelling of the mouth lips or tongue. Neck: Supple with a midline trachea. No meningeal signs or stiffness, no JVD or bruits. No Stridor. Chest: Clear to auscultation bilaterally. No wheezes or rhonchi. No increased work of breathing. Heart: regular rate and rhythm. Abdomen: Soft nontender, nondistended without rebound guarding or rigidity. Extremities: No cyanosis clubbing or edema. No calf tenderness or assymetry Spine/Back. Non tender to palpation. No CVA tenderness Skin: Good turgor without rashes. Neurologic exam: Cranial nerves two through 12 are intact. Motor and sensation are intact and symmetrical throughout. Psych: Normal thought process and affect; no suicidal ideations. Medical Decision & Procedures ER Provider Diagnostic Interpretation: CT results as stated below per my review and radiologist interpretation: CT HEAD WITHOUT CONTRAST (CT) FINDINGS: No intra or extra-axial mass lesions are visualized. There is no CT evidence of acute cortical infarction. There is no evidence of midline shift. There is no acute hemorrhage. No calvarial fractures are visualized. There is no evidence of pathologic ventricular dilatation. There is no evidence of acute sinusitis IMPRESSION: No acute intracranial findings Electronically signed by: Gray Schultz M.D. 04/26/2016 6:11 PM Dictated Date/Time: 04/26/2016 6:09 PM Medications Administered Medications (Trade) Dose Ordered Sig/Shelli Route Start Time Stop Time Status Last Admin Dose Admin Oxycodone HCl (Roxicodone Immediate Rel Tab) 5 mg NOW STAT PO 04/26/16 17:17 04/26/16 17:19 DC 04/26/16 17:17 5 MG ED Course 1713: Past medical records reviewed. The patient was evaluated in room C7, and a complete history and physical examination were performed. 1716: Ordered Oxycodone HCl 5 mg PO. 1901: I reassessed the patient and she is resting comfortably. 1904: Upon reevaluation, the patient is hemodynamically stable. I discussed the results and treatment plan with the patient. She verbalized agreement of the treatment plan. The patient was discharged home. Medical Decision Differentials include concussion, closed head injury, skull fracture, intracranial hemorrhage, and lumbar spine problems. This patient comes in as described above. She suffered a mechanical fall and hit her head on the cement. Given the mechanism I do feel she needs a CAT scan although her [place] Coma Score is 15. I do not her well from previous visits. She does suffer from chronic pain including pain in her back. She had extensive workup for this recently including a CAT scans and x-rays. She is scheduled see her doctor. There are no that no other acute complaints. In regards her back, she has nothing to suggest infection or neurologic deficit or cauda equina syndrome. CAT scan of her head was unremarkable she was given 1 OxyIR here by mouth and seems to be doing better .she was reassessed remains stable and will be discharged home and I told her the have close follow-up with her regular doctor and be careful getting up and down return if: worsening of symptoms, numbness weakness or fever chills any problems or concerns. She is happy with plan and discharged to home. Impression Primary Impression: Mild closed head injury Additional Impressions: Concussion Low back pain Scribe Attestation The scribe's documentation has been prepared under my direction and personally reviewed by me in its entirety. I confirm that the note above accurately reflects all work, treatment, procedures, and medical decision making performed by me. Departure Information Dispostion Home / Self-Care Referrals Dennis Khan M.D. (PCP) Patient Instructions [facility] Additional Instructions Rest. Drink plenty of fluids. Return if: Increasing pain, worsening of symptoms, fever or chills, not acting like self, any new problems or concerns. Use anti-inflammatories like ibuprofen or acetaminophen(Tylenol) for pain. Do not exceed the [id number] recommended dosages for these medications Follow-up with your doctor tomorrow for recheck. Problem Qualifiers
--- NOTE | 2016-04-26 18:12 | DIAGNOSTIC IMAGING REPORT ---
CT HEAD WITHOUT CONTRAST (CT) CLINICAL HISTORY: Head pain status post trauma COMPARISON STUDY: 01/20/2016 TECHNIQUE: Axial CT of the brain is performed from the vertex to the skull base. IV contrast was not administered for this examination. CT DOSE: 537.48 mGy.cm FINDINGS: No intra or extra-axial mass lesions are visualized. There is no CT evidence of acute cortical infarction. There is no evidence of midline shift. There is no acute hemorrhage. No calvarial fractures are visualized. There is no evidence of pathologic ventricular dilatation. There is no evidence of acute sinusitis IMPRESSION: No acute intracranial findings Electronically signed by: Gray Schultz M.D. 04/26/2016 6:11 PM Dictated Date/Time: 04/26/2016 6:09 PM
[2016-04-26 19:21] VITALS: BP 120/86; PULSE 89; O2SAT 97
[2016-08-21] MEDS ORDERED: LAMO1TAB21 PO (14:38)
[2016-08-21] MEDS ORDERED: FLUT1AER4 INH (14:38)
[2016-08-21] MEDS ORDERED: TPM100 PO (16:08)
[2016-08-21] MEDS ORDERED: DICY1TAB25 PO (16:08)
[2016-08-21] MEDS ORDERED: PRAZ2CAP2 PO (16:08)
[2016-08-21] MEDS ORDERED: VST25HP PO (16:08)
[2016-08-21] MEDS ORDERED: CYCL10TA6 PO ×2 (16:18→17:14)
[2016-08-21] MEDS ORDERED: NRN600 PO (16:35)
[2016-08-21] MEDS ORDERED: EFFSR150 PO (16:35)
[2016-08-21] MEDS ORDERED: CYAN10005 PO (17:14)
[2016-08-21] MEDS ORDERED: ALBU18002 INH (18:06)
[2016-08-21] MEDS ORDERED: FERR325T PO (18:06)
[2016-08-21] MEDS ORDERED: FLNIN/ NAE (20:13)
[2016-08-21] MEDS ORDERED: LEVO50TA6 PO (20:13)
[2016-08-21] MEDS ORDERED: PRT/40 PO (20:13)
[2016-08-21] MEDS ORDERED: CLR10 PO (20:17)
[2016-08-21] MEDS ORDERED: EPP3/2 IM (21:52)
[2016-10-08] MEDS ORDERED: NORE-3 PO (20:18)
[2017-01-13] MEDS ORDERED: KFL500 PO (13:18)
== END 2016-04-26 19:22 | disposition home or self-care (01) ==
LOC: C.EDC 17:09
DX: S09.90XA Unspecified injury of head, initial encounter (principal); S06.0X0A Concussion without loss of consciousness, initial encounter; W19.XXXA Unspecified fall, initial encounter; Y93.K1 Activity, walking an animal; M54.5 Low back pain; G89.29 Other chronic pain; J45.909 Unspecified asthma, uncomplicated; F31.81 Bipolar II disorder; F41.9 Anxiety disorder, unspecified; K86.1 Other chronic pancreatitis; Z87.442 Personal history of urinary calculi; Z86.19 Personal history of other infectious and parasitic diseases; Z90.49 Acquired absence of other specified parts of digestive tract; Z79.899 Other long term (current) drug therapy; Z88.5 Allergy status to narcotic agent; Z83.3 Family history of diabetes mellitus; Z80.9 Family history of malignant neoplasm, unspecified; Z82.49 Family history of ischemic heart disease and other diseases of the circulatory system; Z83.79 Family history of other diseases of the digestive system; Z84.1 Family history of disorders of kidney and ureter

== ENCOUNTER 2016-05-06 15:48 | Emergency (ER) | payer OTHER ==
[~2016-05-06] VITALS: Ht 162.6 cm; Wt 93.2 kg
[~2016-05-06 15:48] MED LIST changes: -HYDR-5688 PO
[2016-05-06 15:51] VITALS: TEMP 36.7; Ht 162.6 cm; Wt 93.2 kg
[2016-05-06] MEDS ORDERED: KETOROLAC TROMETHAMINE 60 MG/2 ML VIAL IM STA (16:10)
--- NOTE | 2016-05-06 16:37 | DIAGNOSTIC IMAGING REPORT ---
LUMBAR SPINE 2 OR 3 VIEWS CLINICAL HISTORY: Lower back pain COMPARISON STUDY: 04/22/2016 FINDINGS: There are mild degenerative changes present. No fractures subluxations or destructive lesions are visualized. There are surgical clips within the right upper quadrant consistent with a prior cholecystectomy. IMPRESSION: Mild degenerative change. No fractures, subluxations or destructive lesions are visualized Electronically signed by: Gray Schultz M.D. 05/06/2016 4:35 PM Dictated Date/Time: 05/06/2016 4:34 PM
--- NOTE | 2016-05-06 17:02 | DIAGNOSTIC IMAGING REPORT ---
CT OF THE CERVICAL SPINE CLINICAL HISTORY: Neck pain status post trauma COMPARISON STUDY: Cervical spine series dated 07/21/2013 CT DOSE: 267.41 mGy.cm TECHNIQUE: CT scan of the cervical spine was performed from the skull base to the thoracic inlet. Images are reviewed in the axial, sagittal, and coronal planes. IV contrast was not administered for this examination. FINDINGS: There is a 4 mm right lobe thyroid nodule. There is no apical pneumothorax. The prevertebral soft tissues are normal. No fractures or subluxations are visualized. IMPRESSION: No evidence of acute fracture or traumatic subluxation. Electronically signed by: Gray Schultz M.D. 05/06/2016 5:00 PM Dictated Date/Time: 05/06/2016 4:56 PM
[2016-05-06 17:58] VITALS: BP 131/97; PULSE 82; O2SAT 96
--- NOTE | 2016-05-06 22:13 | EMERGENCY ROOM VISIT NOTE ---
History Report prepared by Antonieta: Mark Jenkins Under the Supervision of: Dr. Gregory Will D.O. First contact with patient: 15:54 Chief Complaint: BACK PAIN Stated Complaint: ABD PAIN History of Present Illness The patient is a 41 year old female who presents to the Emergency Room with complaints of worsening low back pain that started 3 weeks ago. The patient notes that she has been in hospital 4 times in the past month and has seen her PCP. They have discussed getting a MRI, but she has not gotten one. The patient notes that the discomfort is radiating up to her neck and she has been getting headaches. She also notes frequent muscle spasms that start in her back and go down her legs. She fell twice last week because of these muscle spasms. She thinks that her neck pain and headaches have been getting worse since the falls. She also notes that the back pain radiates into her abdomen and she has been getting nauseous from the discomfort. Bowel movements and bending over also make the discomfort worse. Pt denies change in vision, fevers, chest pain, shortness of breath, vomiting, diarrhea, pain with urination, weakness or numbness in her legs, and melena. Source of History: patient Onset: 3 weeks Position: back (lower) Timing: worsening Modifying Factors (Worsening): movement (bending over), defecation Associated Symptoms: + abdominal pain (radiation to abdomen), + headache, + nausea, + neck pain (radiation up to her neck), No SOB, No chest pain, No diarrhea, No fevers, No melena, No urinary symptoms, No vomiting Note: Other associated symptoms: muscle spasms, falls Denies: changes in vision, weakness or numbness in legs Review of Systems See HPI for pertinent positives & negatives. A total of 10 systems reviewed and were otherwise negative. Past Medical & Surgical Medical Problems: (1) Anxiety State Nos (2) Asthma (3) Asthma, Unspecified (4) Bipolar II disorder (5) Chronic back pain (6) Depression (7) Kidney stone (8) Migraine Unspecified W/O Intractable Migraine (9) Pancreatitis (10) Pyelonephritis (11) Suicidal Ideation Surgical Problems: (1) S/P cholecystectomy Family History Diabetes mellitus FH: cancer FH: heart disease FH: lung disease FHx: gallbladder disease Kidney disease or stones Social History Smoking Status: Never Smoker Alcohol Use: none Drug Use: none Marital Status: single Housing Status: lives with family Occupation Status: disabled Current/Historical Medications Scheduled Control Pills ( Control Pills), 1 TAB PO DAILY Dicyclomine HCl (Dicyclomine HCl), 20 MG PO BID Fluticasone Propionate (Inhala (Flovent Diskus), 1 PUFF INH BID Gabapentin (Gabapentin), 600 MG PO TID Hydroxyzine HCl (Hydroxyzine Pamoate), 75 MG PO HS Lamotrigine (Lamotrigine), 200 MG PO QAM Levothyroxine Sodium (Levothyroxine Sodium), 50 MCG PO QAM Loratadine (Claritin), 10 MG PO QAM Pantoprazole (Pantoprazole Sodium), 40 MG PO QAM Prazosin Hcl (Prazosin), 4 MG PO HS Topiramate (Topiramate), 100 MG PO BID Venlafaxine Hcl (Effexor Extended Rel), 150 MG PO QAM Scheduled PRN Albuterol Sulfate (Proair Respiclick), 2 PUFFS PO Q4 PRN for Cough Cyclobenzaprine Hcl (Flexeril), 10 MG PO HS PRN for Muscle Spasms Epinephrine (Epipen), 0.3 MG IM UD PRN for ALLERGIC REACTION Fluticasone Propionate (Fluticasone Propionate), 2 SPRAYS JERRY QAM PRN for Nasal Congestion Sumatriptan Succinate (Imitrex), 100 MG PO UD PRN for Migraine Allergies Coded Allergies: Morphine (Verified Adverse Reaction, Intermediate, HALLUCINATIONS, 04/26/16 ) Physical Exam Vital Signs Date Time Temp Pulse Resp B/P Pulse Ox O2 Delivery O2 Flow Rate FiO2 05/06/16 17:58 82 16 131/97 96 05/06/16 17:29 88 16 154/106 95 Room Air 05/06/16 15:51 36.7 95 16 176/115 96 Room Air Physical Exam GENERAL: sitting up in bed, no acute distress, non-toxic EYE EXAM: normal conjunctiva, OROPHARYNX: no exudate, no erythema, lips, buccal mucosa, and tongue normal and mucous membranes are moist NECK: supple, no nuchal rigidity, no adenopathy, non-tender LUNGS: Clear to auscultation. Normal chest wall mechanics HEART: no murmurs, S1 normal and S2 normal ABDOMEN: abdomen soft, non-tender, normo-active bowel sounds, no masses, no rebound or guarding. BACK: acute reproducible tenderness over lower lumbar spine, paraspinal tenderness tracking to SI joints, worse on right than on the left side, reproducible paraspinal tenderness over upper cervical spine bilateral SKIN: no rashes and no bruising UPPER EXTREMITIES: upper extremities are grossly normal. LOWER EXTREMITIES: No pitting edema. Flexion extension hips, knees, ankles, EHL 5 out of 5, bilateral gross sensation intact, able to walk on heels and on toes. NEURO EXAM: Normal sensorium, cranial nerves II-XII grossly intact, normal speech, no gross weakness of arms, no gross weakness of legs. Gross sensation intact. Medical Decision & Procedures ER Provider Diagnostic Interpretation: Xray results per the radiologist and my interpretation. Other results have been interpreted by the radiologist and reviewed by me. LUMBAR SPINE 2 OR 3 VIEWS CLINICAL HISTORY: Lower back pain COMPARISON STUDY: 04/22/2016 FINDINGS: There are mild degenerative changes present. No fractures subluxations or destructive lesions are visualized. There are surgical clips within the right upper quadrant consistent with a prior cholecystectomy. IMPRESSION: Mild degenerative change. No fractures, subluxations or destructive lesions are visualized Electronically signed by: Gray Schultz M.D. 05/06/2016 4:35 PM Dictated Date/Time: 05/06/2016 4:[address] OF THE CERVICAL SPINE CLINICAL HISTORY: Neck pain status post trauma COMPARISON STUDY: Cervical spine series dated 07/21/2013 CT DOSE: 267.41 mGy.cm TECHNIQUE: CT scan of the cervical spine was performed from the skull base to the thoracic inlet. Images are reviewed in the axial, sagittal, and coronal planes. IV contrast was not administered for this examination. FINDINGS: There is a 4 mm right lobe thyroid nodule. There is no apical pneumothorax. The prevertebral soft tissues are normal. No fractures or subluxations are visualized. IMPRESSION: No evidence of acute fracture or traumatic subluxation. Electronically signed by: Gray Schultz M.D. 05/06/2016 5:00 PM Dictated Date/Time: 05/06/2016 4:56 PM Medications Administered Medications (Trade) Dose Ordered Sig/Shelli Route Start Time Stop Time Status Last Admin Dose Admin Ketorolac Tromethamine (Toradol Inj) 60 mg NOW STAT IM 05/06/16 16:10 05/06/16 16:12 DC 05/06/16 16:34 60 MG ED Course ED COURSE: Vital signs were reviewed and showed normal The patients medical record was reviewed The above diagnostic studies were performed and reviewed. ED treatments and interventions as stated above. 1606: The patient was evaluated in room A12. A complete history and physical examination was performed. 1615: Ordered Toradol Inj 60 mg IM. 1730: Upon reevaluation, the patient is resting.I discussed my findings with the patient and she understands and agrees with the treatment plan. Based on the patients age, coexisting illnesses, exam and lab findings the decision to treat as an outpatient was made. The patient remained stable while under my care. The patient appeared well at the time of discharge. Medical Decision Differential diagnosis: Etiologies such as musculoskeletal, disc herniation, fracture, aortic disease, metastatic disease, cord compression, discitis, infection, renal colic, gastrointestinal, acute exacerbation of chronic back pain, sciatica, cauda equina, as well as others were entertained. Patient is a 41-year-old female who presents the ER for acute on chronic lower back pain along with upper neck pain in the paraspinal region. She has of this has been going on for the past several weeks. She did fall recently secondary to muscle spasms and has had maybe slightly worsening in her back pain. X-ray showed no acute fractures. CT of her cervical spine show no acute fractures. She is completely neurologically intact including reflexes along with ambulate on her heels and toes. No signs of cauda equina. No fevers. No history cancer. She was given IM Toradol and discharged follow-up with her primary care doctor as I feel this is muscle skeletal in nature. Discussed with Pt concerning signs and symptoms to watch out for. Pt was instructed to follow up with their PCP and discussed with the patient their option to return to the ED at anytime for persistent or worsening symptoms. The appropriate anticipatory guidance and out-patient management, including indications for return to the emergency department, were explained at length to the patient and understood. Impression Primary Impression: Low back pain Scribe Attestation The scribe's documentation has been prepared under my direction and personally reviewed by me in its entirety. I confirm that the note above accurately reflects all work, treatment, procedures, and medical decision making performed by me. Departure Information Dispostion Home / Self-Care Referrals Dennis Khan M.D. (PCP) Forms HOME CARE DOCUMENTATION FORM, IMPORTANT VISIT INFORMATION [facility] Additional Instructions Please follow up with your primary care doctor with in the next 24 hours. Any worsening of your symptoms, please return to the ED immediately. This includes fevers greater than 100.4, weakness in your arms or legs, unable to move her bowels, irritable to urinate, numbness in her groin, or any other concerning signs or symptoms from your standpoint. Please take Motrin or Tylenol as needed for pain. Please try to refrain from any heavy lifting. Problem Qualifiers Primary Impression: Low back pain Chronicity: acute Back pain laterality: right Sciatica presence: without sciatica Qualified Codes: M54.5 - Low back pain
[2016-08-21] MEDS ORDERED: LAMO1TAB21 PO (14:38)
[2016-08-21] MEDS ORDERED: FLUT1AER4 INH (14:38)
[2016-08-21] MEDS ORDERED: DICY1TAB25 PO (16:08)
[2016-08-21] MEDS ORDERED: VST25HP PO (16:08)
[2016-08-21] MEDS ORDERED: PRAZ2CAP2 PO (16:08)
[2016-08-21] MEDS ORDERED: TPM100 PO (16:08)
[2016-08-21] MEDS ORDERED: CYCL10TA6 PO ×2 (16:18→17:14)
[2016-08-21] MEDS ORDERED: EFFSR150 PO (16:35)
[2016-08-21] MEDS ORDERED: NRN600 PO (16:35)
[2016-08-21] MEDS ORDERED: CYAN10005 PO (17:14)
[2016-08-21] MEDS ORDERED: FERR325T PO (18:06)
[2016-08-21] MEDS ORDERED: ALBU18002 INH (18:06)
[2016-08-21] MEDS ORDERED: LEVO50TA6 PO (20:13)
[2016-08-21] MEDS ORDERED: FLNIN/ NAE (20:13)
[2016-08-21] MEDS ORDERED: PRT/40 PO (20:13)
[2016-08-21] MEDS ORDERED: CLR10 PO (20:17)
[2016-08-21] MEDS ORDERED: EPP3/2 IM (21:52)
[2016-10-08] MEDS ORDERED: NORE-3 PO (20:18)
[2017-01-13] MEDS ORDERED: KFL500 PO (13:18)
== END 2016-05-06 17:59 | disposition home or self-care (01) ==
LOC: EDBD 15:48 → C.EDA 15:49
DX: M54.5 Low back pain (principal); F41.9 Anxiety disorder, unspecified; J45.909 Unspecified asthma, uncomplicated; F31.81 Bipolar II disorder; G89.29 Other chronic pain; Z87.442 Personal history of urinary calculi; Z90.49 Acquired absence of other specified parts of digestive tract; Z83.3 Family history of diabetes mellitus; Z79.3 Long term (current) use of hormonal contraceptives; Z79.899 Other long term (current) drug therapy

== ENCOUNTER 2016-05-12 16:43 | Emergency (ER) | payer OTHER ==
[~2016-05-12] VITALS: Ht 162.6 cm; Wt 95.0 kg
[2016-05-12 16:51] VITALS: TEMP 37.4; Ht 162.6 cm; Wt 95.0 kg
[2016-05-12] MEDS ORDERED: KETOROLAC TROMETHAMINE 30 MG/ML VIAL IV STA (17:09)
--- NOTE | 2016-05-12 17:15 | EMERGENCY ROOM VISIT NOTE ---
History Report prepared by Antonieta: Roman Last Under the Supervision of: Dr. Tian Cherry M.D. First contact with patient: 17:00 Chief Complaint: BACK PAIN Stated Complaint: NUMBNESS & TINGLING IN LEGS History of Present Illness The patient is a 41 year old female who presents to the Emergency Room with complaints of numbness in both legs. I reviewed all of the patient's records. The patient was taking a nap today, and she woke up with the symptoms. The patient is able to move her legs and walk without difficulty. The patient has been experiencing chronic back pain due to an "extra vertebrae" in her back. She rates her pain a 10/10 in severity. She has been moving her bowels normally , however she notes some pain with defecation. 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 Review of Systems Ten systems have been listed, reviewed, and are negative other than those previously mentioned. Please see Additional Medical History Sheet. Past Medical & Surgical Medical Problems: (1) Anxiety State Nos (2) Asthma (3) Asthma, Unspecified (4) Bipolar II disorder (5) Chronic back pain (6) Depression (7) Kidney stone (8) Migraine Unspecified W/O Intractable Migraine (9) Pancreatitis (10) Pyelonephritis (11) Suicidal Ideation Surgical Problems: (1) S/P cholecystectomy Family History Diabetes mellitus FH: cancer FH: heart disease FH: lung disease FHx: gallbladder disease Kidney disease or stones Social History Smoking Status: Never Smoker Alcohol Use: none Drug Use: none Marital Status: single Housing Status: lives with family Occupation Status: disabled Current/Historical Medications Scheduled Control Pills ( Control Pills), 1 TAB PO DAILY Dicyclomine HCl (Dicyclomine HCl), 20 MG PO BID Fluticasone Propionate (Inhala (Flovent Diskus), 1 PUFF INH BID Gabapentin (Gabapentin), 600 MG PO TID Hydroxyzine HCl (Hydroxyzine Pamoate), 75 MG PO HS Lamotrigine (Lamotrigine), 200 MG PO QAM Levothyroxine Sodium (Levothyroxine Sodium), 50 MCG PO QAM Loratadine (Claritin), 10 MG PO QAM Pantoprazole (Pantoprazole Sodium), 40 MG PO QAM Prazosin Hcl (Prazosin), 4 MG PO HS Topiramate (Topiramate), 100 MG PO BID Venlafaxine Hcl (Effexor Extended Rel), 150 MG PO QAM Scheduled PRN Albuterol Sulfate (Proair Respiclick), 2 PUFFS PO Q4 PRN for Cough Cyclobenzaprine Hcl (Flexeril), 10 MG PO HS PRN for Muscle Spasms Epinephrine (Epipen), 0.3 MG IM UD PRN for ALLERGIC REACTION Fluticasone Propionate (Fluticasone Propionate), 2 SPRAYS JERRY QAM PRN for Nasal Congestion Sumatriptan Succinate (Imitrex), 100 MG PO UD PRN for Migraine Allergies Coded Allergies: Morphine (Verified Adverse Reaction, Intermediate, HALLUCINATIONS, 04/26/16 ) Physical Exam Vital Signs Date Time Temp Pulse Resp B/P Pulse Ox O2 Delivery O2 Flow Rate FiO2 05/12/16 19:58 93 18 130/104 96 05/12/16 18:42 105 18 123/104 95 Room Air 05/12/16 16:51 37.4 103 18 141/101 97 Room Air Physical Exam GENERAL: Patient awake, alert, oriented x 3. Patient follows commands. Patient does not appear toxic. Patient is adequately hydrated and well- nourished. SKIN: No erythema, pallor, cyanosis or rash HEENT: Normal head, pupils equal, reactive to light and accommodation. Ears normal. Oral cavity and posterior pharynx appear normal. Neck: Without adenopathy, no neck vein distention. LUNGS: Clear to auscultation. No wheezes, no rales, no rhonchi. HEART: No murmurs. No gallops. No rubs ABDOMEN: No masses, no rebound, no hepatomegaly or splenomegaly. Obese. Nontender. EXTREMITIES: No signs of trauma. No pedal or pretibial edema. No calf or thigh tenderness. Patient appears to have sensory deficits from her hips distally, motor function remains intact. No motor or sensory deficits in her upper extremities. NEUROLOGIC: Cranial nerves II-XII within normal limits. No gross motor sensory function deficits. Medical Decision & Procedures ER Provider Diagnostic Interpretation: Radiology results are stated below per my review and radiologist interpretation: MRI LUMBAR SPINE COMBINATION CLINICAL HISTORY: Back pain and bilateral leg numbness TECHNIQUE: Sagittal and axial T1, T2 and STIR images were obtained. Imaging was performed before and after the administration of 9 cc of intravenous Gadavist. COMPARISON STUDY: Conventional radiographic study dated 04/22/2016 OBSERVATIONS: The vertebral bodies and posterior elements appear intact. There is no abnormal bony signal present to suggest a marrow replacement process. L1-2: No disc protrusions or extrusions. No evidence of spinal canal or neural foraminal compromise. L2-3: No disc protrusions or extrusions. No evidence of spinal canal or neural foraminal compromise. L3-4: No disc protrusions or extrusions. No evidence of spinal canal or neural foraminal compromise. L4-5: There is an annular fissure and small central disc protrusion. This abuts the anterior aspect the thecal sac. There is no significant thecal sac deformity. There is no foraminal narrowing. L5-S1: No disc protrusions or extrusions. No evidence of spinal canal or neural foraminal compromise. The conus medullaris and cauda equina appear normal. There is no evidence of pathologic enhancement. Partially visualized right renal lesions while incompletely characterized, likely represent cysts. IMPRESSION: 1. Annular fissure and small central disc protrusion at the L4-5 level. No evidence of significant spinal or foraminal stenosis. 2. No lesions of the conus are visualized Electronically signed by: Gray Schultz M.D. 05/12/2016 6:39 PM Dictated Date/Time: 05/12/2016 6:34 PM Laboratory Results 05/12/16 17:41 Red Blood Count 4.41, Mean Corpuscular Volume 87.8, Mean Corpuscular Hemoglobin 30.6, Mean Corpuscular Hemoglobin Concent 34.9, Mean Platelet Volume 8.9, Neutrophils (%) (Auto) 56.9, Lymphocytes (%) (Auto) 32.1, Monocytes (%) (Auto) 7.3, Eosinophils (%) (Auto) 2.1, Basophils (%) (Auto) 0.9, Neutrophils # (Auto) 5.16, Lymphocytes # (Auto) 2.91, Monocytes # (Auto) 0.66, Eosinophils # (Auto) 0.19, Basophils # (Auto) 0.08 05/12/16 17:41 Test 05/12/16 17:41 White Blood Count 9.06 K/uL (4.8-10.8) Red Blood Count 4.41 M/uL (4.2-5.4) Hemoglobin 13.5 g/dL (12.0-16.0) Hematocrit 38.7 % (37-47) Mean Corpuscular Volume 87.8 fL (80-100) Mean Corpuscular Hemoglobin 30.6 pg (25-34) Mean Corpuscular Hemoglobin Concent 34.9 g/dl (32-36) Platelet Count 356 K/uL (130-400) Mean Platelet Volume 8.9 fL (7.4-10.4) Neutrophils (%) (Auto) 56.9 % Lymphocytes (%) (Auto) 32.1 % Monocytes (%) (Auto) 7.3 % Eosinophils (%) (Auto) 2.1 % Basophils (%) (Auto) 0.9 % Neutrophils # (Auto) 5.16 K/uL (1.4-6.5) Lymphocytes # (Auto) 2.91 K/uL (1.2-3.4) Monocytes # (Auto) 0.66 K/uL (0.11-0.59) Eosinophils # (Auto) 0.19 K/uL (0-0.5) Basophils # (Auto) 0.08 K/uL (0-0.2) RDW Standard Deviation 40.6 fL (36.4-46.3) RDW Coefficient of Variation 12.6 % (11.5-14.5) Immature Granulocyte % (Auto) 0.7 % Immature Granulocyte # (Auto) 0.06 K/uL (0.00-0.02) Erythrocyte Sedimentation Rate 16 mm/hr (0-21) Anion Gap 11.0 mmol/L (3-11) Est Creatinine Clear Calc Drug Dose 92.2 ml/min Estimated GFR () 93.3 Estimated GFR (Non- 80.5 BUN/Creatinine Ratio 12.6 (10-20) Calcium Level 8.9 mg/dl (8.5-10.1) Laboratory results as stated above per my review. Medications Administered Medications (Trade) Dose Ordered Sig/Shelli Route Start Time Stop Time Status Last Admin Dose Admin Ketorolac Tromethamine (Toradol Inj) 30 mg NOW STAT IV 05/12/16 17:09 1/28/17 17:13 DC 05/12/16 17:38 30 MG ED Course 1700: Past medical records reviewed. The patient was evaluated in room B12. A complete history and physical examination was performed. . 1708: Toradol Inj 30 mg IV 1922: I reevaluated the patient at this time. She had gotten up to go to the bathroom before I came into the room. We will reassess her ambulatory function. 1925: The patient has walked successfully. 1944: Upon reevaluation, the patient appeared to have improvement of her symptoms. I discussed today's findings with her. She verbalized agreement of the treatment plan. She was discharged home. Medical Decision Nurses notes reviewed. Medical history sheet reviewed. Differential diagnosis includes but is not limited to: epidural mass, cauda equina syndrome, malingering, and conversion disorder. The patient arrived stating that she could not feel anything below her hips. Patient did not flinch when examined with a sharp pin to both legs. As a result an MRI was ordered. Labs were also obtained. Please see results as listed above. After the results were given to the patient I explained that I believe she can now walk. She was walked to the bathroom and out in the hallway. I also explained that she most likely will feel better tomorrow. These symptoms may be partially related to conversion reaction. The patient was encouraged to follow-up with her family physician. Impression Primary Impression: Chronic back pain Additional Impression: Conversion reaction Scribe Attestation The scribe's documentation has been prepared under my direction and personally reviewed by me in its entirety. I confirm that the note above accurately reflects all work, treatment, procedures, and medical decision making performed by me. Departure Information Dispostion Home / Self-Care Referrals Dennis Khan M.D. (PCP) Forms HOME CARE DOCUMENTATION FORM, IMPORTANT VISIT INFORMATION Patient Instructions My [facility] Additional Instructions Continue all of your current medications as prescribed. Follow-up with the family physician within the next 2 weeks. Problem Qualifiers
[2016-05-12 17:53] LABS: BASO % 0.9 %; BASO ABS # 0.08 K/uL (0-0.2); COMPLETE YES; EOS % 2.1 %; HEMATOCRIT 38.7 % (37-47); IG% 0.7 %; LYMPH % 32.1 %; LYMPH ABS # 2.91 K/uL (1.2-3.4); MEAN CELL VOLUME 87.8 fL (80-100); MEAN CORPUSCULAR HEMOGLOBIN 30.6 pg (25-34); MEAN CORPUSCULAR HGB CONC 34.9 g/dl (32-36); MEAN PLATELET VOLUME 8.9 fL (7.4-10.4); MONO % 7.3 %; NEUT % 56.9 %; PLATELET COUNT 356 K/uL (130-400); RED BLOOD COUNT 4.41 M/uL (4.2-5.4); WHITE BLOOD COUNT 9.06 K/uL (4.8-10.8)
[2016-05-12 18:10] LABS: BUN/CREATININE RATIO 12.6 (10-20); CALCIUM 8.9 mg/dl (8.5-10.1); CREATININE 0.88 mg/dl (0.60-1.20); POTASSIUM 3.7 mmol/L (3.5-5.1)
--- NOTE | 2016-05-12 18:41 | DIAGNOSTIC IMAGING REPORT ---
MRI LUMBAR SPINE COMBINATION CLINICAL HISTORY: Back pain and bilateral leg numbness TECHNIQUE: Sagittal and axial T1, T2 and STIR images were obtained. Imaging was performed before and after the administration of 9 cc of intravenous Gadavist. COMPARISON STUDY: Conventional radiographic study dated 04/22/2016 OBSERVATIONS: The vertebral bodies and posterior elements appear intact. There is no abnormal bony signal present to suggest a marrow replacement process. L1-2: No disc protrusions or extrusions. No evidence of spinal canal or neural foraminal compromise. L2-3: No disc protrusions or extrusions. No evidence of spinal canal or neural foraminal compromise. L3-4: No disc protrusions or extrusions. No evidence of spinal canal or neural foraminal compromise. L4-5: There is an annular fissure and small central disc protrusion. This abuts the anterior aspect the thecal sac. There is no significant thecal sac deformity. There is no foraminal narrowing. L5-S1: No disc protrusions or extrusions. No evidence of spinal canal or neural foraminal compromise. The conus medullaris and cauda equina appear normal. There is no evidence of pathologic enhancement. Partially visualized right renal lesions while incompletely characterized, likely represent cysts. IMPRESSION: 1. Annular fissure and small central disc protrusion at the L4-5 level. No evidence of significant spinal or foraminal stenosis. 2. No lesions of the conus are visualized Electronically signed by: Gray Schultz M.D. 05/12/2016 6:39 PM Dictated Date/Time: 05/12/2016 6:34 PM
[2016-05-12 19:58] VITALS: BP 130/104; PULSE 93; O2SAT 96
[2016-08-21] MEDS ORDERED: FLUT1AER4 INH (14:38)
[2016-08-21] MEDS ORDERED: LAMO1TAB21 PO (14:38)
[2016-08-21] MEDS ORDERED: VST25HP PO (16:08)
[2016-08-21] MEDS ORDERED: DICY1TAB25 PO (16:08)
[2016-08-21] MEDS ORDERED: PRAZ2CAP2 PO (16:08)
[2016-08-21] MEDS ORDERED: TPM100 PO (16:08)
[2016-08-21] MEDS ORDERED: CYCL10TA6 PO ×2 (16:18→17:14)
[2016-08-21] MEDS ORDERED: NRN600 PO (16:35)
[2016-08-21] MEDS ORDERED: EFFSR150 PO (16:35)
[2016-08-21] MEDS ORDERED: CYAN10005 PO (17:14)
[2016-08-21] MEDS ORDERED: FERR325T PO (18:06)
[2016-08-21] MEDS ORDERED: ALBU18002 INH (18:06)
[2016-08-21] MEDS ORDERED: FLNIN/ NAE (20:13)
[2016-08-21] MEDS ORDERED: PRT/40 PO (20:13)
[2016-08-21] MEDS ORDERED: LEVO50TA6 PO (20:13)
[2016-08-21] MEDS ORDERED: CLR10 PO (20:17)
[2016-08-21] MEDS ORDERED: EPP3/2 IM (21:52)
[2016-10-08] MEDS ORDERED: NORE-3 PO (20:18)
[2017-01-13] MEDS ORDERED: KFL500 PO (13:18)
== END 2016-05-12 19:58 | disposition home or self-care (01) ==
LOC: EDBD 16:43 → C.EDB 16:45
DX: M54.9 Dorsalgia, unspecified (principal); G89.29 Other chronic pain; F44.9 Dissociative and conversion disorder, unspecified; F31.81 Bipolar II disorder; J45.909 Unspecified asthma, uncomplicated; F32.9 Major depressive disorder, single episode, unspecified; F41.9 Anxiety disorder, unspecified; K86.1 Other chronic pancreatitis; Z87.442 Personal history of urinary calculi; Z90.49 Acquired absence of other specified parts of digestive tract; Z79.899 Other long term (current) drug therapy; Z88.5 Allergy status to narcotic agent; Z83.3 Family history of diabetes mellitus; Z80.9 Family history of malignant neoplasm, unspecified; Z82.49 Family history of ischemic heart disease and other diseases of the circulatory system; Z84.1 Family history of disorders of kidney and ureter; Z83.79 Family history of other diseases of the digestive system

== ENCOUNTER 2016-05-21 17:45 | Emergency (ER) | payer OTHER ==
[~2016-05-21] VITALS: Ht 162.6 cm; Wt 94.2 kg
[2016-05-21 17:48] VITALS: TEMP 36.8; Ht 162.6 cm; Wt 94.2 kg
--- NOTE | 2016-05-21 20:18 | DIAGNOSTIC IMAGING REPORT ---
CT HEAD WITHOUT CONTRAST (CT) CLINICAL HISTORY: Head injury with loss of consciousness. COMPARISON STUDY: April 26, 2016 TECHNIQUE: Axial CT of the brain is performed from the vertex to the skull base. IV contrast was not administered for this examination. CT DOSE: 537.48 mGy.cm FINDINGS: No intra or extra-axial mass lesions are visualized. There is no CT evidence of acute cortical infarction. There is no evidence of midline shift. There is no acute hemorrhage. No calvarial fractures are visualized. There are minimal white matter hypodensities likely on a small vessel basis. There is no evidence of pathologic ventricular dilatation. There is no evidence of acute sinusitis IMPRESSION: No acute intracranial findings Electronically signed by: Gray Schultz M.D. 05/21/2016 8:17 PM Dictated Date/Time: 05/21/2016 8:16 PM
[2016-05-21] MEDS ORDERED: OXYCODONE HCL IR 5 MG TAB (IMMEDIATE RELEASE) PO STA (20:35)
--- NOTE | 2016-05-21 20:40 | EMERGENCY ROOM VISIT NOTE ---
ED Visit Note First contact with patient: 19:41 I have seen and examined this pt in conjunction with Solange Wesley and agree with the treatment plan
--- NOTE | 2016-05-21 20:46 | EMERGENCY ROOM VISIT NOTE ---
History First contact with patient: 19:41 Chief Complaint: FALL Stated Complaint: FALL History of Present Illness The patient is a 41 year old female who presents to the Emergency Room with complaints of 2 falls which occurred today. The patient reports that earlier today, she was taking the dog out when she lost her balance and fell, hitting the top of her head on a concrete wall. He says she did not loose consciousness. She reports that after that, she was at home and felt lightheaded due to the previous injury, fell and struck her head on a dresser. She states that she did "black out" at that time and fell backward onto her bed. No one witnessed this incident. She states that she was slightly confused at first, but soon felt better. She reports a headache and slight lightheadedness at this time. She rates her overall discomfort a 9/10. She denies any other injuries. The patient reports she has had some issues with balance over the past few weeks due to chronic back issues. She did go to physical therapy today and feels slightly weak from that. She denies any numbness, blurred vision, slurred speech or confusion at this time. She denies any nausea or vomiting. Review of Systems A complete 10-point Review of Systems was discussed with the patient, with pertinent positives and negatives listed in the History of Present Illness. All remaining Review of Systems questions can be considered negative unless otherwise specified. Past Medical/Surgical History Medical Problems: (1) Anxiety State Nos (2) Asthma (3) Asthma, Unspecified (4) Bipolar II disorder (5) Chronic back pain (6) Depression (7) Kidney stone (8) Migraine Unspecified W/O Intractable Migraine (9) Pancreatitis (10) Pyelonephritis (11) Suicidal Ideation Surgical Problems: (1) S/P cholecystectomy Family History Diabetes mellitus FH: cancer FH: heart disease FH: lung disease FHx: gallbladder disease Kidney disease or stones Social History Smoking Status: Never Smoker Alcohol Use: none Drug Use: none Marital Status: single Housing Status: lives with family Occupation Status: disabled Current/Historical Medications Scheduled Control Pills ( Control Pills), 1 TAB PO DAILY Dicyclomine HCl (Dicyclomine HCl), 20 MG PO BID Fluticasone Propionate (Inhala (Flovent Diskus), 1 PUFF INH BID Gabapentin (Gabapentin), 600 MG PO TID Hydroxyzine HCl (Hydroxyzine Pamoate), 75 MG PO HS Lamotrigine (Lamotrigine), 200 MG PO QAM Levothyroxine Sodium (Levothyroxine Sodium), 50 MCG PO QAM Loratadine (Claritin), 10 MG PO QAM Pantoprazole (Pantoprazole Sodium), 40 MG PO QAM Prazosin Hcl (Prazosin), 4 MG PO HS Topiramate (Topiramate), 100 MG PO BID Venlafaxine Hcl (Effexor Extended Rel), 150 MG PO QAM Scheduled PRN Albuterol Sulfate (Proair Respiclick), 2 PUFFS PO Q4 PRN for Cough Cyclobenzaprine Hcl (Flexeril), 10 MG PO HS PRN for Muscle Spasms Epinephrine (Epipen), 0.3 MG IM UD PRN for ALLERGIC REACTION Fluticasone Propionate (Fluticasone Propionate), 2 SPRAYS JERRY QAM PRN for Nasal Congestion Sumatriptan Succinate (Imitrex), 100 MG PO UD PRN for Migraine Allergies Coded Allergies: Morphine (Verified Adverse Reaction, Intermediate, HALLUCINATIONS, 04/26/16 ) Physical Exam Vital Signs Date Time Temp Pulse Resp B/P Pulse Ox O2 Delivery O2 Flow Rate FiO2 05/21/16 20:54 71 16 123/76 99 05/21/16 18:55 70 16 122/73 98 Room Air 05/21/16 17:48 36.8 99 18 134/92 96 Room Air Physical Exam VITALS: Vitals are noted on the nurse's note and reviewed by myself. Vital signs stable. GENERAL: This is a 41-year-old female, in no acute distress, nondiaphoretic, well-developed well-nourished. SKIN: The skin was without rashes, erythema, edema, or bruising. HEAD: Normocephalic atraumatic. EARS: External auditory canals clear, tympanic membranes pearly maddox without erythema or effusion bilaterally. No hemotympanum. EYES: Pupils equal round and reactive to light and accommodation. Extraocular movements intact. MOUTH: Mucous membranes moist. Tongue does not deviate. NECK: Supple without nuchal rigidity. Cervical spine is nontender. HEART: Regular rate and rhythm without murmurs gallops or rubs. LUNGS: Clear to auscultation bilaterally without wheezes, rales or rhonchi. MUSCULOSKELETAL: Full range of motion in all extremities. Strength 5/5 throughout. NEURO: Patient was alert and oriented to person place and time. Normal sensation to light and sharp touch. Deep tendon reflexes 2+ throughout. No focal neurological deficits. Medical Decision & Procedures ER Provider Diagnostic Interpretation: CT HEAD WITHOUT CONTRAST (CT) FINDINGS: No intra or extra-axial mass lesions are visualized. There is no CT evidence of acute cortical infarction. There is no evidence of midline shift. There is no acute hemorrhage. No calvarial fractures are visualized. There are minimal white matter hypodensities likely on a small vessel basis. There is no evidence of pathologic ventricular dilatation. There is no evidence of acute sinusitis IMPRESSION: No acute intracranial findings Medications Administered Medications (Trade) Dose Ordered Sig/Shelli Route Start Time Stop Time Status Last Admin Dose Admin Oxycodone HCl (Roxicodone Immediate Rel Tab) 5 mg NOW STAT PO 05/21/16 20:35 05/21/16 20:36 DC 05/21/16 20:35 5 MG Medical Decision Differential diagnosis includes intracranial bleed, contusion, skull fracture, concussion, among others. The patient was evaluated as above. CT of the head was performed and revealed no acute findings. Findings were discussed with the patient. Conservative measures were discussed. The patient will follow-up with her primary care provider as needed. She verbalized understanding of my assessment and treatment plan and was discharged home in good condition. The patient was independently evaluated by Dr. Monroy, ED attending physician, who agreed with my assessment and treatment plan. Impression Primary Impression: Closed head injury Departure Information Dispostion Home / Self-Care Condition GOOD Referrals Dennis Khan M.D. (PCP) Patient Instructions My [facility] Additional Instructions You have been treated in the Emergency Department for a Closed Head Injury. You have received pain medicine in the emergency department which impairs your ability to operate a vehicle. It is illegal for you to drive after receiving these medicines. CT Scan of your head/brain demonstrated no acute bleeding or other abnormalities. This does not completely rule out the risk for future damage to the brain. For pain control, you can use the following [id number] medicines (if >12 yo): - Regular strength (325mg/tab) Tylenol (acetaminophen) 2 tabs every 4-6 hours as needed. Do not exceed 12 tablets in a 24 hour period. Avoid taking more than 4 grams (4000 mg) of Tylenol per day. This includes any other sources of acetaminophen you may take on a regular basis. - Regular strength (200 mg/tab) Advil (ibuprofen) 1-2 tabs every 4-6 hours as needed. Do not exceed a dose of 3200 mg per day. You should relax in a quiet, dark place for the rest of the day. Avoid any possible triggers including: cigarette smoke, caffeine, nicotine, chocolate, wine, beer, loud noises or music, or bright lights. Follow-up with your primary care provider within 3-4 days for further evaluation of your head injury. Return to the Emergency Department if your current symptoms worsen despite treatment course outlined above, or if you develop any of the following symptoms : intractable pain despite aforementioned treatment course, visual disturbances , loss of vision, unilateral weakness or facial drooping, slurring of speech, loss of coordination, or loss of consciousness. Problem Qualifiers Primary Impression: Closed head injury Encounter type: initial encounter Qualified Codes: S09.90XA - Unspecified injury of head, initial encounter
[2016-05-21 20:54] VITALS: BP 123/76; PULSE 71; O2SAT 99
[2016-08-21] MEDS ORDERED: LAMO1TAB21 PO (14:38)
[2016-08-21] MEDS ORDERED: FLUT1AER4 INH (14:38)
[2016-08-21] MEDS ORDERED: DICY1TAB25 PO (16:08)
[2016-08-21] MEDS ORDERED: PRAZ2CAP2 PO (16:08)
[2016-08-21] MEDS ORDERED: TPM100 PO (16:08)
[2016-08-21] MEDS ORDERED: VST25HP PO (16:08)
[2016-08-21] MEDS ORDERED: CYCL10TA6 PO ×2 (16:18→17:14)
[2016-08-21] MEDS ORDERED: EFFSR150 PO (16:35)
[2016-08-21] MEDS ORDERED: NRN600 PO (16:35)
[2016-08-21] MEDS ORDERED: CYAN10005 PO (17:14)
[2016-08-21] MEDS ORDERED: FERR325T PO (18:06)
[2016-08-21] MEDS ORDERED: ALBU18002 INH (18:06)
[2016-08-21] MEDS ORDERED: FLNIN/ NAE (20:13)
[2016-08-21] MEDS ORDERED: PRT/40 PO (20:13)
[2016-08-21] MEDS ORDERED: LEVO50TA6 PO (20:13)
[2016-08-21] MEDS ORDERED: CLR10 PO (20:17)
[2016-08-21] MEDS ORDERED: EPP3/2 IM (21:52)
[2016-10-08] MEDS ORDERED: NORE-3 PO (20:18)
[2017-01-13] MEDS ORDERED: KFL500 PO (13:18)
== END 2016-05-21 20:57 | disposition home or self-care (01) ==
LOC: C.EDB 17:46
DX: S09.90XA Unspecified injury of head, initial encounter (principal); W01.198A Fall on same level from slipping, tripping and stumbling with subsequent striking against other object, initial encounter; W01.190A Fall on same level from slipping, tripping and stumbling with subsequent striking against furniture, initial encounter; Y92.019 Unspecified place in single-family (private) house as the place of occurrence of the external cause; Y93.K9 Activity, other involving animal care; F41.9 Anxiety disorder, unspecified; F31.9 Bipolar disorder, unspecified; J45.909 Unspecified asthma, uncomplicated; M54.9 Dorsalgia, unspecified; Z79.3 Long term (current) use of hormonal contraceptives; Z84.1 Family history of disorders of kidney and ureter

== ENCOUNTER 2016-05-24 17:22 | Emergency (ER) | payer OTHER ==
[~2016-05-24] VITALS: Ht 165.1 cm; Wt 93.0 kg
[2016-05-24 17:25] VITALS: TEMP 37.3; Ht 165.1 cm; Wt 93.0 kg
[2016-05-24] MEDS ORDERED: ONDANSETRON 4MG OD TAB PO ONE (17:45)
--- NOTE | 2016-05-24 17:53 | EMERGENCY ROOM VISIT NOTE ---
History Report prepared by Antonieta: Nancy Lezama Under the Supervision of: Dr. Hilario Peterson D.O. First contact with patient: 17:24 Chief Complaint: OTHER COMPLAINT Stated Complaint: HEADACHE, VOMIT History of Present Illness The patient is a 41 year old female who presents to the Emergency Room with complaints of a waxing and waning headache for the past 3 days. The patient had an episode of a fall on Saturday. She hit her head and was evaluated in the ED at that time. She had a CT scan, which was negative. She was diagnosed with a concussion and discharged home. She states that she has had a headache since then with nausea. She rates her pain as a 9/10 in severity. The patient took 1 hydrocodone today at 1:30pm. When her mother came home around 4:30pm she was unable to arouse the patient. She tried shaking her, but could not wake her up so she called 911. Police and EMS arrived and were successfully able to arouse the patient. The patient states that she was confused and disoriented when she first woke up. Mother states that the patient has returned to her baseline mental status since arriving in the ED. Mother denies any seizure-like activity. The patient denies drug or alcohol use today. She did not take any other medications for pain. Source of History: patient, parent (mother) Onset: 3 days ago Position: head Symptom Intensity: 9/10 Timing: waxes/wanes Modifying Factors (Worsening): other (concussion) Modifying Factors (Relieving): narcotics Associated Symptoms: + nausea Note: Mother denies seizure-like activity. Pt reports confusion. Review of Systems See HPI for pertinent positives & negatives. A total of 10 systems reviewed and were otherwise negative. Past Medical & Surgical Medical Problems: (1) Anxiety State Nos (2) Asthma (3) Asthma, Unspecified (4) Bipolar II disorder (5) Chronic back pain (6) Depression (7) Kidney stone (8) Migraine Unspecified W/O Intractable Migraine (9) Pancreatitis (10) Pyelonephritis (11) Suicidal Ideation Surgical Problems: (1) S/P cholecystectomy Family History Diabetes mellitus FH: cancer FH: heart disease FH: lung disease FHx: gallbladder disease Kidney disease or stones Social History Smoking Status: Never Smoker Alcohol Use: none Drug Use: none Marital Status: single Housing Status: lives with family Occupation Status: disabled Current/Historical Medications Scheduled Control Pills ( Control Pills), 1 TAB PO DAILY Cyclobenzaprine Hcl (Flexeril), 10 MG PO HS Dicyclomine HCl (Dicyclomine HCl), 20 MG PO BID Fluticasone Propionate (Inhala (Flovent Diskus), 1 PUFF INH BID Gabapentin (Gabapentin), 600 MG PO TID Hydroxyzine HCl (Hydroxyzine Pamoate), 75 MG PO HS Lamotrigine (Lamotrigine), 200 MG PO QAM Levothyroxine Sodium (Levothyroxine Sodium), 50 MCG PO QAM Loratadine (Claritin), 10 MG PO QAM Pantoprazole (Pantoprazole Sodium), 40 MG PO QAM Prazosin Hcl (Prazosin), 4 MG PO HS Topiramate (Topiramate), 100 MG PO BID Venlafaxine Hcl (Effexor Extended Rel), 150 MG PO QAM Scheduled PRN Albuterol Sulfate (Proair Respiclick), 2 PUFFS PO Q4 PRN for Cough Epinephrine (Epipen), 0.3 MG IM UD PRN for ALLERGIC REACTION Fluticasone Propionate (Fluticasone Propionate), 2 SPRAYS JERRY QAM PRN for Nasal Congestion Sumatriptan Succinate (Imitrex), 100 MG PO UD PRN for Migraine Allergies Coded Allergies: Morphine (Verified Adverse Reaction, Intermediate, HALLUCINATIONS, 05/24/16) Physical Exam Vital Signs Date Time Temp Pulse Resp B/P Pulse Ox O2 Delivery O2 Flow Rate FiO2 05/24/16 21:07 90 18 127/78 95 Room Air 05/24/16 19:16 89 20 147/77 95 Room Air 05/24/16 17:25 37.3 91 16 171/89 97 Room Air Physical Exam GENERAL: Patient is awake, alert, and in no acute distress. Patient is resting comfortably and showing no signs of anxiety EYES: The conjunctivae are clear. The pupils are round and reactive. EARS, NOSE, MOUTH AND THROAT: The nose is without any evidence of any deformity. Mucous membranes are moist tongue is midline NECK: The neck is nontender and supple. RESPIRATORY: Normal respiratory effort is noted there is no evidence of wheezing rhonchi or rales CARDIOVASCULAR: Regular rate and rhythm noted there no murmurs rubs or gallops normal S1 normal S2 GASTROINTESTINAL: The abdomen is soft. Bowel sounds are present in all quadrants. Abdomen is nontender MUSCULOSKELETAL/EXTREMITIES: There is no evidence of gross deformity full range of motion is noted in the hips and shoulders SKIN: There is no obvious evidence of any rash. There are no petechiae, pallor or cyanosis noted. NEUROLOGIC: Patient is awake alert and oriented x3 strength is symmetric patellar reflexes are 2+ bilaterally Medical Decision & Procedures ER Provider Diagnostic Interpretation: Radiology results as stated below per my review and radiologist interpretation: CT SCAN OF THE BRAIN WITHOUT IV CONTRAST CLINICAL HISTORY: Headache. Recent fall. COMPARISON STUDY: Prior CT scans of the brain, most recently dated 05/21/16. MRI of the brain dated 04/03/2011. TECHNIQUE: Unenhanced axial CT scan of the brain is performed from the vertex to the skull base. Automated dose control exposure was utilized. CT DOSE: 537.48 mGy.cm FINDINGS: Brain parenchyma: The brain parenchyma is normal in appearance. There is no hemorrhage, mass effect, or evidence of acute territorial ischemia by CT criteria. Pete-white matter is preserved. No extra-axial fluid collection is seen. Ventricles, sulci, cisterns: Normal in configuration. Intracranial vasculature: The visualized intracranial vasculature at the skull base is normal in appearance. Calvarium: There is no depressed calvarial fracture. Sinuses and mastoids: The visualized paranasal sinuses are clear. The mastoid air cells are well pneumatized. Orbits: The bony orbits are grossly intact. IMPRESSION: No acute intracranial abnormality and no significant change from recent prior studies. Electronically signed by: Meño Hendrickson M.D. 05/24/2016 5:51 PM Dictated Date/Time: 05/24/2016 5:48 PM Laboratory Results Test 05/24/16 19:51 Urine Opiates Screen POS (NEG) Urine Methadone, Qualitative NEG (NEG) Urine Barbiturates NEG (NEG) Urine Phencyclidine (PCP) Level NEG (NEG) Ur Amphetamine/Methamphetamine NEG (NEG) MDMA (Ecstasy) Screen NEG (NEG) Urine Benzodiazepines Screen NEG (NEG) Urine Cocaine Metabolite NEG (NEG) Urine Marijuana (THC) NEG (NEG) Laboratory results per my review. Medications Administered Medications (Trade) Dose Ordered Sig/Shelli Route Start Time Stop Time Status Last Admin Dose Admin Ondansetron HCl (Zofran Odt) 4 mg ONE ONCE PO 05/24/16 17:45 05/24/16 17:46 DC 05/24/16 17:47 4 MG Ketorolac Tromethamine (Toradol Inj) 60 mg NOW STAT IM 05/24/16 19:33 05/24/16 19:34 DC 05/24/16 19:50 60 MG ED Course 1723: The patient was evaluated in room A12B. A complete history and physical examination were performed. 1744: Zofran 4 mg PO 1932: Toradol 60 mg IM 2103: I reassessed the patient at this time. She is feeling better and resting comfortably. I discussed the results and treatment plan with the patient. I answered all pertaining questions that she had. She expressed understanding and verbalized agreement. The patient will be discharged home. Medical Decision Differential diagnosis: Etiologies such as migraine headache, meningitis, sinusitis, CO exposure, ICH, SAH, infection, tumor, headache, sinus thrombosis, arterial dissection, as well as others were entertained. Nursing notes reviewed. The patient is a 41-year-old female who presented to the emergency department for an evaluation of headache. The patient states that she had a minor head injury recently. She was seen in our facility. Her CT the head was negative and time. The patient took her pain medication and went to take a nap. She was unable to be awakened by her family member. They were concerned and called amulet's. The patient arrived at the emergency department awake alert. She had no focal neurological. She states that she only took her prescribed amount of pain medication. I discussed the patient's radiographic studies with her. She was encouraged to rest and avoid any strenuous activity. She was also encouraged to only take her pain medication as prescribed. She was encouraged to follow-up with her primary care physician this week for reevaluation but return to the emergency department if signs of head injury develop or symptoms worsen. Impression Primary Impression: Chronic headache Additional Impression: Altered mental status Scribe Attestation The scribe's documentation has been prepared under my direction and personally reviewed by me in its entirety. I confirm that the note above accurately reflects all work, treatment, procedures, and medical decision making performed by me. Departure Information Dispostion Home / Self-Care Referrals Dennis Khan M.D. (PCP) Forms HOME CARE DOCUMENTATION FORM, IMPORTANT VISIT INFORMATION Patient Instructions Headache Pain, My [facility] Additional Instructions Call your family in the morning to schedule a follow-up appointment. Continue all medications only as prescribed. Try not to take anymore of your pain medication until your cleared by your family doctor. Problem Qualifiers Primary Impression: Chronic headache Headache type: unspecified Intractability: not intractable Qualified Codes : R51 - Headache Additional Impression: Altered mental status Altered mental status type: unspecified Qualified Codes: R41.82 - Altered mental status, unspecified
[2016-05-24] MEDS ORDERED: KETOROLAC TROMETHAMINE 60 MG/2 ML VIAL IM STA (19:33)
[2016-05-24 20:23] LABS: BENZODIAZEPINE, URINE NEG (NEG); COCAINE,URINE NEG (NEG); PHENCYCLIDINE, URINE NEG (NEG)
[2016-05-24 21:07] VITALS: BP 127/78; PULSE 90; O2SAT 95
[2016-05-29 15:59] LABS: COD UR NEGATIVE NG/ML (CUTOFF=50); HYDROCOD UR 117 NG/ML (CUTOFF=50); HYDROMOR UR NEGATIVE NG/ML (CUTOFF=50); MORPHINE UR NEGATIVE NG/ML (CUTOFF=50); NORHYDROCODONE CONF UR 676 NG/ML (CUTOFF=50); OXYMORPH UR NEGATIVE NG/ML (CUTOFF=50)
[2016-08-21] MEDS ORDERED: LAMO1TAB21 PO (14:38)
[2016-08-21] MEDS ORDERED: FLUT1AER4 INH (14:38)
[2016-08-21] MEDS ORDERED: DICY1TAB25 PO (16:08)
[2016-08-21] MEDS ORDERED: PRAZ2CAP2 PO (16:08)
[2016-08-21] MEDS ORDERED: TPM100 PO (16:08)
[2016-08-21] MEDS ORDERED: VST25HP PO (16:08)
[2016-08-21] MEDS ORDERED: CYCL10TA6 PO ×2 (16:18→17:14)
[2016-08-21] MEDS ORDERED: NRN600 PO (16:35)
[2016-08-21] MEDS ORDERED: EFFSR150 PO (16:35)
[2016-08-21] MEDS ORDERED: CYAN10005 PO (17:14)
[2016-08-21] MEDS ORDERED: FERR325T PO (18:06)
[2016-08-21] MEDS ORDERED: ALBU18002 INH (18:06)
[2016-08-21] MEDS ORDERED: LEVO50TA6 PO (20:13)
[2016-08-21] MEDS ORDERED: FLNIN/ NAE (20:13)
[2016-08-21] MEDS ORDERED: PRT/40 PO (20:13)
[2016-08-21] MEDS ORDERED: CLR10 PO (20:17)
[2016-08-21] MEDS ORDERED: EPP3/2 IM (21:52)
[2016-10-08] MEDS ORDERED: NORE-3 PO (20:18)
[2017-01-13] MEDS ORDERED: KFL500 PO (13:18)
== END 2016-05-24 21:06 | disposition home or self-care (01) ==
LOC: EDBD 17:22 → C.EDA 17:23
DX: R51 Headache (principal); R41.82 Altered mental status, unspecified; F41.9 Anxiety disorder, unspecified; J45.909 Unspecified asthma, uncomplicated; F32.9 Major depressive disorder, single episode, unspecified; F31.9 Bipolar disorder, unspecified; M54.9 Dorsalgia, unspecified; G89.29 Other chronic pain; Z87.442 Personal history of urinary calculi; K85.90 Acute pancreatitis without necrosis or infection, unspecified; N12 Tubulo-interstitial nephritis, not specified as acute or chronic; Z79.3 Long term (current) use of hormonal contraceptives; Z79.899 Other long term (current) drug therapy

== ENCOUNTER 2016-06-25 15:33 | Emergency (ER) | payer OTHER ==
[~2016-06-25] VITALS: Ht 162.6 cm; Wt 93.8 kg
[2016-06-25 15:36] VITALS: TEMP 36.9; Ht 162.6 cm; Wt 93.8 kg
[2016-06-25 16:47] LABS: HEMATOCRIT 38.8 % (37-47); MEAN CELL VOLUME 87.6 fL (80-100); MEAN CORPUSCULAR HEMOGLOBIN 30.7 pg (25-34); MEAN CORPUSCULAR HGB CONC 35.1 g/dl (32-36); MEAN PLATELET VOLUME 8.9 fL (7.4-10.4); PLATELET COUNT 332 K/uL (130-400); RED BLOOD COUNT 4.43 M/uL (4.2-5.4); WHITE BLOOD COUNT 8.97 K/uL (4.8-10.8)
[2016-06-25 16:58] LABS: URINE APPEARANCE CLOUDY (CLEAR); URINE BILIRUBIN NEG (NEG); URINE COLOR DK YELLOW; URINE EPITHELIAL CELL AUTO >30 /lpf (0-5); URINE NITRITE NEG (NEG); URINE SPECIFIC GRAVITY 1.022 (1.000-1.030); UROBILINOGEN NEG (NEG)
[2016-06-25 17:05] LABS: MANUAL MICROSCOPIC REQUIRED? NO; REVIEW REQ? YES
--- NOTE | 2016-06-25 17:10 | EMERGENCY ROOM VISIT NOTE ---
History Report prepared by Antonieta: Janel Torres Under the Supervision of: Dr. Jocy Banuelos D.O. First contact with patient: 16:03 Chief Complaint: MENTAL HEALTH EVALUATION Stated Complaint: HEARING VOICES,FEELING SUICIDAL History of Present Illness The patient is a 41 year old female who presents to the Emergency Room with complaints of worsening feelings of suicidality. She reports she has been "hearing voices" for the past 3 to 4 days and the voices are "making fun of her ", which is very upsetting. She attends psychiatric rehabilitation sessions twice a week and states she recently heard a curse word in a "hip-hop song" that they listened to in a session, that really upset her. She tried to tell the session leader about her feelings, but states "she did not listen" and then other peers in the group got upset with her, and that may have triggered her recent suicidality, which started yesterday. She notes she had a vague plan of "overdosing on pills". She admits to a history of attempting overdose in 1999. The patient also follows regularly with Dr. Haas at [facility] and last saw him in May. She has been hospitalized in a psychiatric facility in the past, with the most recent inpatient stay being last year at the [facility]. She denies any recent changes in medication doses. The patient lives with her Mother and denies any tobacco or ETOH use. She admits she told her Mother she was hearing voices, and states her Mother "kind of knows what's going on". 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 A total of 10 systems reviewed and were otherwise negative. Past Medical & Surgical Medical Problems: (1) Anxiety State Nos (2) Asthma (3) Asthma, Unspecified (4) Bipolar II disorder (5) Chronic back pain (6) Depression (7) Kidney stone (8) Migraine Unspecified W/O Intractable Migraine (9) Pancreatitis (10) Pyelonephritis (11) Suicidal Ideation Surgical Problems: (1) S/P cholecystectomy Family History Diabetes mellitus FH: cancer FH: heart disease FH: lung disease FHx: gallbladder disease Kidney disease or stones Social History Smoking Status: Never Smoker Alcohol Use: none Drug Use: none Marital Status: single Housing Status: lives with family Occupation Status: disabled Current/Historical Medications Scheduled Albuterol Hfa (Ventolin Hfa), 2-4 PUFFS INH Q6H Control Pills ( Control Pills), 1 TAB PO DAILY Cyanocobalamin (Vitamin B-12), 1,000 MCG PO QAM Cyclobenzaprine Hcl (Flexeril), 10 MG PO HS Cyclobenzaprine Hcl (Flexeril), 5 MG PO QAM Dicyclomine HCl (Dicyclomine HCl), 20 MG PO BID Fluticasone Propionate (Inhala (Flovent Diskus), 1 PUFF INH BID Gabapentin (Gabapentin), 600 MG PO TID Hydroxyzine HCl (Hydroxyzine Pamoate), 75 MG PO HS Lamotrigine (Lamotrigine), 200 MG PO QAM Levothyroxine Sodium (Levothyroxine Sodium), 50 MCG PO QAM Loratadine (Claritin), 10 MG PO QAM Pantoprazole (Pantoprazole Sodium), 40 MG PO QAM Prazosin Hcl (Prazosin), 4 MG PO HS Topiramate (Topiramate), 100 MG PO BID Venlafaxine Hcl (Effexor Extended Rel), 150 MG PO QAM Scheduled PRN Epinephrine (Epipen), 0.3 MG IM UD PRN for ALLERGIC REACTION Fluticasone Propionate (Fluticasone Propionate), 2 SPRAYS JERRY QAM PRN for Nasal Congestion Sumatriptan Succinate (Imitrex), 100 MG PO UD PRN for Migraine Allergies Coded Allergies: Morphine (Verified Adverse Reaction, Intermediate, HALLUCINATIONS, 05/24/16) Physical Exam Vital Signs Date Time Temp Pulse Resp B/P Pulse Ox O2 Delivery O2 Flow Rate FiO2 06/25/16 20:32 91 133/100 97 06/25/16 19:03 85 18 138/100 96 Room Air 06/25/16 15:36 36.9 111 22 151/98 97 Room Air Physical Exam HEENT: Head - normocephalic and atraumatic Pupils are equal, round, and reactive to light. Extraocular eye muscles are intact, and sclera are anicteric. Nose - moist nasal mucosa without discharge. Mouth - moist buccal mucosa. Oropharynx is nonerythematous and there is no tonsillar exudate or edema noted. Neck: Supple; no JVD, nuchal rigidity, cervical lymphadenopathy. Heart: Regular rate and rhythm. There is a normal S1 and S2 with no murmurs, clicks, or gallops appreciated. Lungs: Clear to auscultation bilaterally with no wheezes, rales, or rhonchi. Abdomen: Soft, completely nontender, nondistended, with good bowel sounds. There are no palpable pulsatile masses or hepatosplenomegaly. There is no guarding, rigidity, or rebound noted. Extremities: No evidence of cyanosis, clubbing, or edema. There are easily palpable peripheral pulses. Skin: warm and dry with good turgor and no rashes. Psych: Normal affect, patient appears slightly depressed and admits to hearing voices. She admits to thoughts of suicide and considering an overdose. Medical Decision & Procedures Laboratory Results 06/25/16 16:30 06/25/16 16:30 Test 06/25/16 16:05 06/25/16 16:30 Urine Color DK YELLOW Urine Appearance CLOUDY (CLEAR) Urine pH 6.0 (4.5-7.5) Urine Specific [place] 1.022 (1.000-1.030) Urine Protein NEG (NEG) Urine Glucose (UA) NEG (NEG) Urine Ketones NEG (NEG) Urine Occult Blood NEG (NEG) Urine Nitrite NEG (NEG) Urine Bilirubin NEG (NEG) Urine Urobilinogen NEG (NEG) Urine Leukocyte Esterase SMALL (NEG) Urine WBC (Auto) >30 /hpf (0-5) Urine RBC (Auto) 0-4 /hpf (0-4) Urine Hyaline Casts (Auto) 10-30 /lpf (0-5) Urine Epithelial Cells (Auto) >30 /lpf (0-5) Urine Bacteria (Auto) 1+ (NEG) Urine Mucus PRESENT (NONE PRSENT) Urine Test NEG (NEG) Urine Opiates Screen NEG (NEG) Urine Methadone, Qualitative NEG (NEG) Urine Barbiturates NEG (NEG) Urine Phencyclidine (PCP) Level NEG (NEG) Ur Amphetamine/Methamphetamine NEG (NEG) MDMA (Ecstasy) Screen NEG (NEG) Urine Benzodiazepines Screen NEG (NEG) Urine Cocaine Metabolite NEG (NEG) Urine Marijuana (THC) NEG (NEG) Red Blood Count 4.43 M/uL (4.2-5.4) Mean Corpuscular Volume 87.6 fL (80-100) Mean Corpuscular Hemoglobin 30.7 pg (25-34) Mean Corpuscular Hemoglobin Concent 35.1 g/dl (32-36) RDW Standard Deviation 41.0 fL (36.4-46.3) RDW Coefficient of Variation 12.9 % (11.5-14.5) Mean Platelet Volume 8.9 fL (7.4-10.4) Anion Gap 11.0 mmol/L (3-11) Est Creatinine Clear Calc Drug Dose 73.2 ml/min Estimated GFR () 71.2 Estimated GFR (Non- 61.4 BUN/Creatinine Ratio 12.2 (10-20) Calcium Level 9.1 mg/dl (8.5-10.1) Total Bilirubin 0.4 mg/dl (0.2-1) Direct Bilirubin < 0.1 mg/dl (0-0.2) Aspartate Amino Transf (AST/SGOT) 16 U/L (15-37) Alanine Aminotransferase (ALT/SGPT) 21 U/L (12-78) Alkaline Phosphatase 48 U/L (45-117) Total Protein 8.1 gm/dl (6.4-8.2) Albumin 3.6 gm/dl (3.4-5.0) Thyroid Stimulating Hormone (TSH) 1.340 uIu/ml (0.300-4.500) Salicylates Level < 1.7 mg/dl (2.8-20) Acetaminophen Level < 2 ug/ml (10-30) Ethyl Alcohol mg/dL < 3.0 mg/dl (0-3) Laboratory results per my review. ED Course 1657: Past medical records reviewed. The patient was evaluated in room A8. A complete history and physical exam was performed. Labs were drawn as above. 1731:the patient has been medically cleared. 1834: Lorelei our Psychiatric Doll Wig Hackler informed me the patient wants to go inpatient. She will contact the [facility]. 1855: Lorelei informed me the patient has decided she does not want to go inpatient. She is going to talk to the patients Mother to see if she is willing to watch her and contract for safety. 1915: I reevaluated the patient. She plans to follow up with Psychiatric Rehabilitation in 2 days. She was easily able to contract for safety. Her brother will come get her here in the ED shortly. I discussed her results and discharge instructions and she verbalized complete understanding and agreement. Medical Decision The patient is a 41 year old female who presents to the ED with needing a mental health evaluation. The differential diagnoses include thought disorder, mood disorder, depression and suicidal ideation. Lab results show no leukocyte esterase, stable H&H, normal renal function, normal LFT's, Glucose is 128, TSH is 1.3, Toxicology screen is negative. Alcohol , Tylenol and Aspirin are all negative. Urine is dark and cloudy. Greater than 30 WBC's in urinalysis, 1+ bacteria, small amount of leukocyte esterase. This is a 41 of palpation with an extensive psychiatric history who presents to the emergency department after hearing voices and feeling suicidal. Initially, the patient explained she wanted inpatient psychiatric care but then changed her mind and requested discharge home stating that she would follow up at her outpatient psych rehabilitation. The patient was able to contract for safety. They psychiatric disease case manager rn spoke with the patient's mother who was willing to watch over her closely. Impression Primary Impression: Thought disorder Scribe Attestation The scribe's documentation has been prepared under my direction and personally reviewed by me in its entirety. I confirm that the note above accurately reflects all work, treatment, procedures, and medical decision making performed by me. Departure Information Dispostion Home / Self-Care Referrals Dennis Khan M.D. (PCP) Patient Instructions My [facility] Additional Instructions Return to the ER if symptoms worsen. Call [facility] if you feel suicidal - [phone] Follow up on Sat. at psych rehab
[2016-06-25 17:14] LABS: URINE MUCUS PRESENT (NONE PRSENT)
[2016-06-25 17:14] LABS: ACETAMINOPHEN < 2 ug/ml (10-30); ALT/SGPT 21 U/L (12-78); BLOOD UREA NITROGEN 13 mg/dl (7-18); BUN/CREATININE RATIO 12.2 (10-20); CALCIUM 9.1 mg/dl (8.5-10.1); CARBON DIOXIDE 20 mmol/L (21-32); CHLORIDE 109 mmol/L (98-107); GLUCOSE 128 mg/dl (70-99); POTASSIUM 3.6 mmol/L (3.5-5.1); SODIUM 140 mmol/L (136-145)
[2016-06-25] MEDS ORDERED: VNTHFA/IN INH (17:15)
[2016-06-25 17:24] LABS: ALKALINE PHOSPHATASE 48 U/L (45-117); AST/SGOT 16 U/L (15-37)
[2016-06-25 17:26] LABS: BENZODIAZEPINE, URINE NEG (NEG); COCAINE,URINE NEG (NEG); PHENCYCLIDINE, URINE NEG (NEG)
[2016-06-25 20:32] VITALS: BP 133/100; PULSE 91; O2SAT 97
[2016-08-21] MEDS ORDERED: FLUT1AER4 INH (14:38)
[2016-08-21] MEDS ORDERED: LAMO1TAB21 PO (14:38)
[2016-08-21] MEDS ORDERED: VST25HP PO (16:08)
[2016-08-21] MEDS ORDERED: TPM100 PO (16:08)
[2016-08-21] MEDS ORDERED: PRAZ2CAP2 PO (16:08)
[2016-08-21] MEDS ORDERED: DICY1TAB25 PO (16:08)
[2016-08-21] MEDS ORDERED: CYCL10TA6 PO ×2 (16:18→17:14)
[2016-08-21] MEDS ORDERED: NRN600 PO (16:35)
[2016-08-21] MEDS ORDERED: EFFSR150 PO (16:35)
[2016-08-21] MEDS ORDERED: CYAN10005 PO (17:14)
[2016-08-21] MEDS ORDERED: ALBU18002 INH (18:06)
[2016-08-21] MEDS ORDERED: FERR325T PO (18:06)
[2016-08-21] MEDS ORDERED: LEVO50TA6 PO (20:13)
[2016-08-21] MEDS ORDERED: FLNIN/ NAE (20:13)
[2016-08-21] MEDS ORDERED: PRT/40 PO (20:13)
[2016-08-21] MEDS ORDERED: CLR10 PO (20:17)
[2016-08-21] MEDS ORDERED: EPP3/2 IM (21:52)
[2016-10-08] MEDS ORDERED: NORE-3 PO (20:18)
[2017-01-13] MEDS ORDERED: KFL500 PO (13:18)
== END 2016-06-25 20:33 | disposition home or self-care (01) ==
LOC: C.EDB 15:34 → C.EDA 20:33
DX: R45.851 Suicidal ideations (principal); F31.81 Bipolar II disorder; F41.9 Anxiety disorder, unspecified; J45.909 Unspecified asthma, uncomplicated; K86.1 Other chronic pancreatitis; G89.29 Other chronic pain; Z87.440 Personal history of urinary (tract) infections; Z87.442 Personal history of urinary calculi; Z90.49 Acquired absence of other specified parts of digestive tract; Z79.899 Other long term (current) drug therapy; Z88.5 Allergy status to narcotic agent; Z83.3 Family history of diabetes mellitus; Z80.9 Family history of malignant neoplasm, unspecified; Z82.49 Family history of ischemic heart disease and other diseases of the circulatory system; Z83.79 Family history of other diseases of the digestive system; Z84.1 Family history of disorders of kidney and ureter

== ENCOUNTER 2016-08-21 17:18 | Emergency (ER) | payer OTHER ==
[~2016-08-21] VITALS: Ht 162.6 cm; Wt 97.2 kg
[~2016-08-21 17:18] MED LIST changes: -ALBU18002 PO; +LAMO1TAB21 PO; +TPM100 PO; +VNTHFA/IN INH; +VST25HP PO
[2016-08-21 17:23] VITALS: TEMP 36.7; Ht 162.6 cm; Wt 97.2 kg
[2016-08-21] MEDS ORDERED: HYDROmorphone INJ 1 MG/ML SYR IM STA (17:40)
[2016-08-21] MEDS ORDERED: KETOROLAC TROMETHAMINE 60 MG/2 ML VIAL IM STA (17:40)
[2016-08-21] MEDS ORDERED: ONDANSETRON 4MG OD TAB PO ONE (17:45)
--- NOTE | 2016-08-21 18:10 | EMERGENCY ROOM VISIT NOTE ---
History First contact with patient: 17:33 Chief Complaint: PAIN (GENERALIZED) Stated Complaint: BACK/NECK/ABDOMINAL PAIN History of Present Illness The patient is a 41 year old female who presents to the Emergency Room with complaints of generalized back pain along with paresthesias/tingling of the upper and lower extremities. She also reports that her back pain is starting to radiate around her sides. The patient reports that she had an MRI of her back approximately 4 months ago that showed a cracked disc. The patient has been undergoing physical therapy, and has one week of therapy remaining. She has not had any significant relief of her pain. She is scheduled to see a chiropractor in the near future. The patient had an appointment with her family doctor this past Saturday without any special plan to further address her pain. The patient reports that her family doctor wanted to see how she responded to PT and chiropractic workup, and may also want to get an MRI of the cervical spine. The patient has not noticed any weakness of teacher associate or difficulty with walking. She denies any bladder or bowel incontinence, saddle paresthesias or foot drop. She denies any abdominal pain, chest pain or shortness of breath. She also denies any fevers or chills, headaches or neck stiffness. The patient does get the 12 shots. Otherwise she has not been prescribed any medicine for her pain. She currently rates her discomfort a 10 out of 10, and is here "for pain control". The patient denies any recent trauma or injury to her back. Review of Systems 10 system review was performed and was negative except for pertinent positives and negatives as indicated in history of present illness Past Medical/Surgical History Medical Problems: (1) Anxiety State Nos (2) Asthma (3) Asthma, Unspecified (4) Bipolar II disorder (5) Chronic back pain (6) Depression (7) Kidney stone (8) Migraine Unspecified W/O Intractable Migraine (9) Pancreatitis (10) Pyelonephritis (11) Suicidal Ideation Surgical Problems: (1) S/P cholecystectomy Family History Diabetes mellitus FH: cancer FH: heart disease FH: lung disease FHx: gallbladder disease Kidney disease or stones Social History Smoking Status: Never Smoker Alcohol Use: none Drug Use: none Marital Status: single Housing Status: lives with family Occupation Status: disabled Current/Historical Medications Scheduled Albuterol Hfa (Ventolin Hfa), 2-4 PUFFS INH Q6H Control Pills ( Control Pills), 1 TAB PO DAILY Cyanocobalamin (Vitamin B-12), 1,000 MCG PO QAM Cyclobenzaprine Hcl (Flexeril), 10 MG PO HS Cyclobenzaprine Hcl (Flexeril), 5 MG PO QAM Dicyclomine HCl (Dicyclomine HCl), 20 MG PO BID Fluticasone Propionate (Inhala (Flovent Diskus), 1 PUFF INH BID Gabapentin (Gabapentin), 600 MG PO TID Hydroxyzine HCl (Hydroxyzine Pamoate), 75 MG PO HS Lamotrigine (Lamotrigine), 200 MG PO QAM Levothyroxine Sodium (Levothyroxine Sodium), 50 MCG PO QAM Loratadine (Claritin), 10 MG PO QAM Pantoprazole (Pantoprazole Sodium), 40 MG PO QAM Prazosin Hcl (Prazosin), 4 MG PO HS Topiramate (Topiramate), 100 MG PO BID Venlafaxine Hcl (Effexor Extended Rel), 150 MG PO QAM Scheduled PRN Epinephrine (Epipen), 0.3 MG IM UD PRN for ALLERGIC REACTION Fluticasone Propionate (Fluticasone Propionate), 2 SPRAYS JERRY QAM PRN for Nasal Congestion Sumatriptan Succinate (Imitrex), 100 MG PO UD PRN for Migraine Allergies Coded Allergies: Morphine (Verified Adverse Reaction, Intermediate, HALLUCINATIONS, 05/24/16) Physical Exam Vital Signs Date Time Temp Pulse Resp B/P Pulse Ox O2 Delivery O2 Flow Rate FiO2 08/21/16 17:23 36.7 104 18 138/96 94 Room Air Physical Exam CONSTITUTIONAL: Obese female, alert and oriented X 3 with positive affect. Patient appears in mild discomfort on exam. HEENT: Normocephalic, atraumatic. Pupils equal, round and reactive. NECK: Full active range of motion without discomfort. Patient has no focal tenderness through the cervical musculature. Negative lateral gaze test. RESPIRATORY: Clear to auscultation bilaterally with no wheezing, crackles, rhonchi or stridor. CARDIOVASCULAR: Regular rate and rhythm with no murmurs, rubs or gallops. GASTROINTESTINAL: Bowel sounds present in all quadrants. Soft and nontender to palpation. MUSCULOSKELETAL: Examination shows mild tenderness to palpation through the paraspinous muscles of the thoracolumbar spine. No palpable spasms. She has no focal tenderness through the central thoracolumbar spine. No palpable step- offs. Negative sitting straight leg raise bilaterally. Equal hand teacher associate bilaterally. Ankle plantar/dorsiflexion strength is 5 out of 5 and symmetric bilaterally. INTEGUMENTARY: No rash or other significant dermatologic conditions noted. NEUROLOGIC: No focal neurologic deficits noted. Upper and lower extremities are sensory intact. Medical Decision & Procedures Medications Administered Medications (Trade) Dose Ordered Sig/Shelli Route Start Time Stop Time Status Last Admin Dose Admin Hydromorphone HCl (Dilaudid Inj) 1 mg ONE STAT IM 08/21/16 17:40 08/21/16 17:42 DC 08/21/16 17:49 1 MG Ketorolac Tromethamine (Toradol Inj) 60 mg NOW STAT IM 08/21/16 17:40 08/21/16 17:42 DC 08/21/16 17:49 60 MG Ondansetron HCl (Zofran Odt) 4 mg ONE ONCE PO 08/21/16 17:45 08/21/16 17:46 DC 08/21/16 17:49 4 MG ED Course Patient history and physical exam were performed. Nurse's notes were reviewed. Vital signs were reviewed and grossly normal. The patient expressed concern today that her PCP did not have any definitive plan for her on Saturday. The patient did provide consent for review of her office notes. Our lead case manager was able to get her SOAP notes from her visit on 08/17/16. She was seen by Dr. Hanson. All sections were included on the office note except for his plans. The patient also saw her lead case manager, Latrice Alonzo, that same day. The patient was scheduled for a 10/22/16 appointment for reassessment. There does not appear to be any prescription analgesics that were provided. It is also noted that there was a phone conversation today where they offered to repeat the MRI, but the patient did not feel that it was warranted. I did review office notes with the patient. I did suggest that she call Ms. Alonzo, her lead case manager, to further address her plan of care and pain management needs. Review of lower ED records shows that the patient is on limited narcotic treatment plan. The patient has not had any significant frequent visits. I also reviewed the [place] Prescription Drug Monitoring Program, showing that she does not receive any regular controlled prescriptions. Because the patient is limited to 2 shots per month, she did request a shot of Dilaudid for the pain. Review of records shows that she also usually sees IM Toradol and Zofran as well. The patient agreed with this plan. She was administered Dilaudid 1 mg and Toradol 60 mg IM, along with Zofran 4 mg ODT. As indicated previously, I did suggest that she called her lead case manager tomorrow. The patient was happy with plan of care, voiced understanding of all discharge instructions, and rated her pain a 4 out of 10 at the time of discharge. Impression Primary Impression: Chronic back pain Additional Impression: Extremity neuralgias Departure Information Dispostion Home / Self-Care Forms HOME CARE DOCUMENTATION FORM, IMPORTANT VISIT INFORMATION Patient Instructions My [facility] Additional Instructions Suggest calling your lead case manager, Latrice Alonzo, to discuss further workup and pain management options. You may also asked for a referral to pain management. The emergency department does not provide chronic pain management. Problem Qualifiers Primary Impression: Chronic back pain Back pain location: back pain in unspecified location Back pain laterality: unspecified Qualified Codes: M54.9 - Dorsalgia, unspecified; G89.29 - Other chronic pain
[2016-08-21 18:20] VITALS: BP 164/106; PULSE 87; O2SAT 95
[2016-08-21] MEDS ORDERED: BCPILLS PO (19:52)
[2016-08-21] MEDS ORDERED: IMT100 PO (22:06)
[2017-01-13] MEDS ORDERED: KFL500 PO (13:18)
[2017-02-17] MEDS ORDERED: CEPH-571 PO (19:20)
== END 2016-08-21 18:21 | disposition home or self-care (01) ==
LOC: C.EDB 17:19 → C.EDD 18:21
DX: M54.9 Dorsalgia, unspecified (principal); G89.29 Other chronic pain; M79.2 Neuralgia and neuritis, unspecified; R20.0 Anesthesia of skin; F41.9 Anxiety disorder, unspecified; F31.81 Bipolar II disorder; E66.9 Obesity, unspecified; J45.909 Unspecified asthma, uncomplicated; Z79.3 Long term (current) use of hormonal contraceptives; Z79.899 Other long term (current) drug therapy; Z87.19 Personal history of other diseases of the digestive system; Z87.442 Personal history of urinary calculi; Z82.49 Family history of ischemic heart disease and other diseases of the circulatory system; Z83.3 Family history of diabetes mellitus; Z83.6 Family history of other diseases of the respiratory system; Z83.79 Family history of other diseases of the digestive system

== ENCOUNTER 2016-08-25 19:25 | Emergency (ER) | payer OTHER ==
[~2016-08-25] VITALS: Ht 162.6 cm; Wt 96.5 kg
[~2016-08-25 19:25] MED LIST changes: +BCPILLS PO; +IMT100 PO; -VNTHFA/IN INH
[2016-08-25 19:26] VITALS: TEMP 36.7; Ht 162.6 cm; Wt 96.5 kg
[2016-08-25] MEDS ORDERED: KETOROLAC TROMETHAMINE 30 MG/ML VIAL IV STA (19:41)
[2016-08-25] MEDS ORDERED: ONDANSETRON INJ 2 MG/ML 2 ML VIAL IV STA (19:41)
[2016-08-25 20:03] LABS: BASO % 0.5 %; BASO ABS # 0.04 K/uL (0-0.2); COMPLETE YES; EOS % 1.6 %; HEMATOCRIT 39.8 % (37-47); IG% 0.9 %; LYMPH % 30.5 %; LYMPH ABS # 2.64 K/uL (1.2-3.4); MEAN CELL VOLUME 89.4 fL (80-100); MEAN CORPUSCULAR HEMOGLOBIN 30.6 pg (25-34); MEAN CORPUSCULAR HGB CONC 34.2 g/dl (32-36); MEAN PLATELET VOLUME 8.8 fL (7.4-10.4); NEUT % 57.5 %; PLATELET COUNT 342 K/uL (130-400); RED BLOOD COUNT 4.45 M/uL (4.2-5.4); WHITE BLOOD COUNT 8.65 K/uL (4.8-10.8)
[2016-08-25 20:21] LABS: ALT/SGPT 18 U/L (12-78); AST/SGOT 11 U/L (15-37); BLOOD UREA NITROGEN 13 mg/dl (7-18); BUN/CREATININE RATIO 14.5 (10-20); CARBON DIOXIDE 24 mmol/L (21-32); CHLORIDE 111 mmol/L (98-107); CREATININE 0.89 mg/dl (0.60-1.20); GLUCOSE 86 mg/dl (70-99); POTASSIUM 3.7 mmol/L (3.5-5.1); SODIUM 144 mmol/L (136-145)
[2016-08-25 20:24] LABS: ALKALINE PHOSPHATASE 49 U/L (45-117)
--- NOTE | 2016-08-25 20:28 | DIAGNOSTIC IMAGING REPORT ---
PA CHEST WITH ABDOMINAL SERIES CLINICAL HISTORY: Generalized abdominal pain. FINDINGS: 2 PA chest radiographs are compared to study dated 04/16/2016. The cardiomediastinal silhouette is unremarkable. The lungs and pleural spaces are clear. No pneumothorax is seen. The bony thorax is grossly intact. Supine and erect abdominal radiographs are correlated with abdominal CT dated 04/14/2016. There is a nonobstructed abdominal bowel gas pattern. No evidence of intraperitoneal free air is seen. Moderate constipation is observed. Cholecystectomy clips are identified. There are no abnormal abdominal calcifications. The lumbosacral spine and bony pelvis appear intact. IMPRESSION: 1. No active disease in the chest. 2. Moderate constipation. Electronically signed by: Meño Hendrickson M.D. 08/25/2016 8:27 PM Dictated Date/Time: 08/25/2016 8:25 PM
[2016-08-25 21:04] LABS: MANUAL MICROSCOPIC REQUIRED? NO; REVIEW REQ? YES; URINE APPEARANCE CLOUDY (CLEAR); URINE BILIRUBIN NEG (NEG); URINE COLOR YELLOW; URINE EPITHELIAL CELL AUTO >30 /lpf (0-5); URINE NITRITE NEG (NEG); URINE PH 5.5 (4.5-7.5); URINE SPECIFIC GRAVITY 1.021 (1.000-1.030); UROBILINOGEN NEG (NEG)
[2016-08-25 21:07] VITALS: BP 139/83; PULSE 72; O2SAT 96
--- NOTE | 2016-08-25 22:10 | EMERGENCY ROOM VISIT NOTE ---
History Report prepared by Antonieta: Guanaco José Under the Supervision of: Dr. Reynaldo Remy M.D. First contact with patient: 19:30 Chief Complaint: ABDOMINAL PAIN Stated Complaint: BACK PAIN, ABDOMINAL PAIN History of Present Illness The patient is a 41 year old female who presents to the Emergency Room with complaints of constant right sided abdominal pain beginning a few years ago. She also complains of right sided back pain. She states that she was found to have a "cracked disc" in her back last week. The patient states that her current pain feels the same as it did last week and describes it as "stabbing". She has a history of chronic abdominal pain of uncertain origin. She has a history of a cholecystectomy. The patient also complains of nausea, intermittent hand and feet tingling, and chills. She denies any vomiting, weakness, loss of continence, or urinary symptoms. She has had a gastric emptying study, but does not follow up with a GI. She says despite having chronic abdominal pain for years she has not seen a precision devices inspector/tester. Source of History: patient Onset: a few years ago Position: abdomen (right side) Quality: stabbing Timing: constant Associated Symptoms: + chills, + nausea, No urinary symptoms, No vomiting, No weakness Note: The patient also complains of intermittent hand and feet tingling. She denies any loss of continence. Review of Systems See HPI for pertinent positives & negatives. A total of 10 systems reviewed and were otherwise negative. Past Medical & Surgical Medical Problems: (1) Anxiety State Nos (2) Asthma (3) Asthma, Unspecified (4) Bipolar II disorder (5) Chronic back pain (6) Depression (7) Kidney stone (8) Migraine Unspecified W/O Intractable Migraine (9) Pancreatitis (10) Pyelonephritis (11) Suicidal Ideation Surgical Problems: (1) S/P cholecystectomy Family History Diabetes mellitus FH: cancer FH: heart disease FH: lung disease FHx: gallbladder disease Kidney disease or stones Social History Smoking Status: Never Smoker Alcohol Use: none Drug Use: none Marital Status: single Housing Status: lives with family Occupation Status: disabled Current/Historical Medications Scheduled Control Pills ( Control Pills), 1 TAB PO DAILY Cyanocobalamin (Vitamin B-12), 1,000 MCG PO QAM Cyclobenzaprine Hcl (Flexeril), 10 MG PO HS Cyclobenzaprine Hcl (Flexeril), 5 MG PO QAM Dicyclomine HCl (Dicyclomine HCl), 20 MG PO BID Ferrous Sulfate (Ferrous Sulfate), 325 MG PO DAILY Fluticasone Propionate (Inhala (Flovent Diskus), 1 PUFF INH BID Gabapentin (Gabapentin), 600 MG PO TID Hydroxyzine HCl (Hydroxyzine Pamoate), 75 MG PO HS Lamotrigine (Lamotrigine), 200 MG PO QAM Levothyroxine Sodium (Levothyroxine Sodium), 50 MCG PO QAM Loratadine (Claritin), 10 MG PO QAM Pantoprazole (Pantoprazole Sodium), 40 MG PO QAM Prazosin Hcl (Prazosin), 4 MG PO HS Topiramate (Topiramate), 150 MG PO BID Venlafaxine Hcl (Effexor Extended Rel), 150 MG PO QAM Scheduled PRN Albuterol Sulfate (Proair Respiclick), 2-4 PUFFS INH Q4H PRN for Cough/ Shortness Of Breath Epinephrine (Epipen), 0.3 MG IM UD PRN for ALLERGIC REACTION Fluticasone Propionate (Fluticasone Propionate), 2 SPRAYS JERRY QAM PRN for Nasal Congestion Sumatriptan Succinate (Imitrex), 100 MG PO UD PRN for Migraine Allergies Coded Allergies: BEE STING (Verified Allergy, Severe, ANAPHYLAXIS, 08/25/16) Morphine (Verified Adverse Reaction, Intermediate, HALLUCINATIONS, 08/25/16 ) Physical Exam Vital Signs Date Time Temp Pulse Resp B/P Pulse Ox O2 Delivery O2 Flow Rate FiO2 08/25/16 21:07 72 18 139/83 96 08/25/16 19:26 36.7 98 20 143/86 93 Room Air Physical Exam Constitutional: Vital signs reviewed. Eyes: Pupils are equal round reactive to light. Conjunctiva are noninjected. ENT: Pharynx is clear without erythema or exudate. Mucous membranes are moist. Neck supple without meningeal signs. Respiratory: Clear to auscultation bilaterally. Breath sounds are equal bilaterally. Cardiovascular: Regular rate and rhythm. No rubs or gallops. GI: Soft, nondistended with mild right upper quadrant tenderness. No guarding. Bowel sounds are present. Musculoskeletal: No peripheral edema. No CVA tenderness. Integumentary: No cyanosis. Neurological: The patient is awake and alert. No focal deficits. Psychiatric: Normal affect. Medical Decision & Procedures ER Provider Diagnostic Interpretation: X-ray results as stated below per interpretation by me and the radiologist: PA CHEST WITH ABDOMINAL SERIES FINDINGS: 2 PA chest radiographs are compared to study dated 04/16/2016. The cardiomediastinal silhouette is unremarkable. The lungs and pleural spaces are clear. No pneumothorax is seen. The bony thorax is grossly intact. Supine and erect abdominal radiographs are correlated with abdominal CT dated 04/14/2016. There is a nonobstructed abdominal bowel gas pattern. No evidence of intraperitoneal free air is seen. Moderate constipation is observed. Cholecystectomy clips are identified. There are no abnormal abdominal calcifications. The lumbosacral spine and bony pelvis appear intact. IMPRESSION: 1. No active disease in the chest. 2. Moderate constipation. Electronically signed by: Meño Hendrickson M.D. Laboratory Results 08/25/16 19:50 Red Blood Count 4.45, Mean Corpuscular Volume 89.4, Mean Corpuscular Hemoglobin 30.6, Mean Corpuscular Hemoglobin Concent 34.2, Mean Platelet Volume 8.8, Neutrophils (%) (Auto) 57.5, Lymphocytes (%) (Auto) 30.5, Monocytes (%) (Auto) 9.0, Eosinophils (%) (Auto) 1.6, Basophils (%) (Auto) 0.5, Neutrophils # (Auto) 4.97, Lymphocytes # (Auto) 2.64, Monocytes # (Auto) 0.78, Eosinophils # (Auto) 0.14, Basophils # (Auto) 0.04 08/25/16 19:50 Test 08/25/16 19:40 08/25/16 19:50 Urine Color YELLOW Urine Appearance CLOUDY (CLEAR) Urine pH 5.5 (4.5-7.5) Urine Specific [place] 1.021 (1.000-1.030) Urine Protein NEG (NEG) Urine Glucose (UA) NEG (NEG) Urine Ketones NEG (NEG) Urine Occult Blood NEG (NEG) Urine Nitrite NEG (NEG) Urine Bilirubin NEG (NEG) Urine Urobilinogen NEG (NEG) Urine Leukocyte Esterase SMALL (NEG) Urine WBC (Auto) >30 /hpf (0-5) Urine RBC (Auto) 0-4 /hpf (0-4) Urine Hyaline Casts (Auto) 1-5 /lpf (0-5) Urine Epithelial Cells (Auto) >30 /lpf (0-5) Urine Bacteria (Auto) 1+ (NEG) Urine Test NEG (NEG) White Blood Count 8.65 K/uL (4.8-10.8) Red Blood Count 4.45 M/uL (4.2-5.4) Hemoglobin 13.6 g/dL (12.0-16.0) Hematocrit 39.8 % (37-47) Mean Corpuscular Volume 89.4 fL (80-100) Mean Corpuscular Hemoglobin 30.6 pg (25-34) Mean Corpuscular Hemoglobin Concent 34.2 g/dl (32-36) Platelet Count 342 K/uL (130-400) Mean Platelet Volume 8.8 fL (7.4-10.4) Neutrophils (%) (Auto) 57.5 % Lymphocytes (%) (Auto) 30.5 % Monocytes (%) (Auto) 9.0 % Eosinophils (%) (Auto) 1.6 % Basophils (%) (Auto) 0.5 % Neutrophils # (Auto) 4.97 K/uL (1.4-6.5) Lymphocytes # (Auto) 2.64 K/uL (1.2-3.4) Monocytes # (Auto) 0.78 K/uL (0.11-0.59) Eosinophils # (Auto) 0.14 K/uL (0-0.5) Basophils # (Auto) 0.04 K/uL (0-0.2) RDW Standard Deviation 43.0 fL (36.4-46.3) RDW Coefficient of Variation 13.2 % (11.5-14.5) Immature Granulocyte % (Auto) 0.9 % Immature Granulocyte # (Auto) 0.08 K/uL (0.00-0.02) Anion Gap 9.0 mmol/L (3-11) Est Creatinine Clear Calc Drug Dose 91.9 ml/min Estimated GFR () 92.0 Estimated GFR (Non- 79.4 BUN/Creatinine Ratio 14.5 (10-20) Calcium Level 9.0 mg/dl (8.5-10.1) Total Bilirubin 0.3 mg/dl (0.2-1) Direct Bilirubin < 0.1 mg/dl (0-0.2) Aspartate Amino Transf (AST/SGOT) 11 U/L (15-37) Alanine Aminotransferase (ALT/SGPT) 18 U/L (12-78) Alkaline Phosphatase 49 U/L (45-117) Total Protein 7.9 gm/dl (6.4-8.2) Albumin 3.7 gm/dl (3.4-5.0) Lipase 202 U/L (73-393) Laboratory results as reviewed by me. Medications Administered Medications (Trade) Dose Ordered Sig/Shelli Route Start Time Stop Time Status Last Admin Dose Admin Ondansetron HCl (Zofran Inj) 4 mg NOW STAT IV 08/25/16 19:41 08/25/16 19:43 DC 08/25/16 19:55 4 MG Ketorolac Tromethamine (Toradol Inj) 10 mg NOW STAT IV 08/25/16 19:41 08/25/16 19:43 DC 08/25/16 19:56 10 MG ED Course 1935: The patient was evaluated in room C2B. A complete history and physical exam was performed. 1940: Ordered Toradol Inj 10 mg IV, Zofran Inj 4 mg IV. 2054: Upon reevaluation, the patient appeared to have improvement of her symptoms. I discussed margareth's findings with her. She verbalized agreement of the treatment plan. The patient was discharged home. Medical Decision This is a 41-year-old female presents with right flank pain.differential diagnosis includes kidney stone, chronic pain syndrome, duodenitis, irritable bowel syndrome, UTI. I did perform a limited focused review of portions of the patient's old chart on the electronic medical record. The patient was seen here August 21 and was given IM Dilaudid and Toradol for back pain. She had an MRI of the back four months ago that showed a disc problem, and follows up with physical therapy for this. She had a CT in March which showed non- obstructing renal calculi. I did evaluate the patient as noted above. The patient is presenting with abdominal pain that she has had for years. She has had no significant associated symptoms such as fever or vomiting. Her abdomen demonstrates some mild tenderness without any surgical signs. IV access was established. I did treat the patient with Toradol IV. I did order and review the patient's blood work as noted in the electronic medical record. She has no elevation in her white blood cell count. Pancreatic enzymes are negative. I did order an x-ray of the chest and abdomen. I did review the images myself as well as the radiology report as described above. There is no evidence of obstruction or kidney stone. The patient has moderate constipation on x-ray. Her urine dip was equivocal. The patient states that she has no urinary symptoms. Urinalysis appeared contaminated. A urine culture was sent given the lack of any urinary symptoms. She had no CVA tenderness and states that the pain she has been having has been going on for years. I therefore felt pyelonephritis was unlikely. The patient was advised to follow up closely with her doctor. She was given return instructions as outlined below. Impression Primary Impression: Chronic abdominal pain Additional Impression: Constipation Scribe Attestation The scribe's documentation has been prepared under my direct and personally reviewed by me in its entirety. I confirm that the note above accurately reflects all work, treatment, procedures, and medical decision making performed by me. Departure Information Dispostion Home / Self-Care Referrals Dennis Khan M.D. (PCP) Forms Call Back Authorization, HOME CARE DOCUMENTATION FORM, IMPORTANT VISIT INFORMATION Patient Instructions ED Abd Pain Unkn Cause Fem, My [facility] Additional Instructions You have been examined and treated today on an emergency basis only. This is not a substitute for, or an effort to provide, complete comprehensive medical care. It is impossible to recognize and treat all injuries or illnesses in a single emergency department visit. It is therefore important that you follow up closely with your physician and a precision devices inspector/tester. Call as soon as possible for an appointment. Return for worsening symptoms or if you develop fever, vomiting, or any other concerning symptoms. Problem Qualifiers Additional Impression: Constipation Constipation type: unspecified constipation type Qualified Codes: K59.00 - Constipation, unspecified
[2017-01-13] MEDS ORDERED: KFL500 PO (13:18)
[2017-02-17] MEDS ORDERED: CEPH-571 PO (19:20)
== END 2016-08-25 21:08 | disposition home or self-care (01) ==
LOC: C.EDB 19:26 → C.EDC 21:08
DX: R10.9 Unspecified abdominal pain (principal); G89.29 Other chronic pain; K59.00 Constipation, unspecified; J45.909 Unspecified asthma, uncomplicated; F32.9 Major depressive disorder, single episode, unspecified; Z87.442 Personal history of urinary calculi; Z90.49 Acquired absence of other specified parts of digestive tract; Z83.3 Family history of diabetes mellitus; Z79.899 Other long term (current) drug therapy

== ENCOUNTER 2016-10-08 18:44 | Emergency (ER) | payer OTHER ==
[~2016-10-08] VITALS: Ht 152.4 cm; Wt 97.0 kg
[2016-10-08 18:50] VITALS: TEMP 36.8; Ht 152.4 cm; Wt 97.0 kg
[2016-10-08] MEDS ORDERED: ONDANSETRON 8 MG/54 ML D5W IV STA (19:06)
[2016-10-08] MEDS ORDERED: KETOROLAC TROMETHAMINE 30 MG/ML VIAL IV STA (19:06)
[2016-10-08] MEDS ORDERED: SODIUM CHLORIDE 0.9% 1000ML 1,000 ML IV STA (19:06)
--- NOTE | 2016-10-08 19:07 | EMERGENCY ROOM VISIT NOTE ---
History Report prepared by Antonieta: Verna Chapman Under the Supervision of: Dr. Rafaela Shaw D.O. First contact with patient: 18:48 Chief Complaint: GROIN PAIN Stated Complaint: GROIN & AB PAIN History of Present Illness The patient is a 41 year old female who presents to the Emergency Room with complaints of waxing and waning right lower quadrant abdominal pain that began around 1400 today. She currently rates her discomfort as a 10/10 and describes her discomfort as a sharp and stabbing pain intermittently, but a dull pain persistently. The patient states that she was lying down and resting today and states that she developed the pain around 1400. She states that she saw a chiropractor today and was adjusted, and is unsure if her symptoms are related to that. The patient states that she has had this pain in the past, but not this severe. She reports an increase in bowel movements, but denies any diarrhea, melena, hematochezia, or urinary symptoms. The patient states that her pain is worsened with movement and with sitting up. Her pain is alleviated with lying flat and still. The patient additionally notes nausea. She reports that she had an epidural shot in her back on September 27 for chronic back pain and has not felt well since. The patient states that she has been diaphoretic since the shot. She additionally reports a history of borderline diabetes. The patient reports a history of a cholecystectomy, but denies any history of an appendectomy. She reports a history of an ovarian cyst. The patient denies any vaginal discharge or change in menstrual cycle. She reports being on control pills. The patient associates radiating pain to her back. The patient reports a history of kidney stones. Per EMR review the patient was seen August 26 right sided abdominal pain and as given Toradol and Zofran and discharged. Source of History: patient Onset: 1400 today Position: abdomen (RLQ) Symptom Intensity: 10/10 Quality: sharp, stabbing, dull Timing: waxes/wanes Modifying Factors (Worsening): movement, other (sitting up) Modifying Factors (Relieving): other (lying flat and still) Associated Symptoms: + nausea, + back pain, No melena, No hematochezia, No diarrhea, No urinary symptoms Review of Systems See HPI for pertinent positives & negatives. A total of 10 systems reviewed and were otherwise negative. Past Medical & Surgical Medical Problems: (1) Anxiety State Nos (2) Asthma (3) Asthma, Unspecified (4) Bipolar II disorder (5) Chronic back pain (6) Depression (7) Kidney stone (8) Migraine Unspecified W/O Intractable Migraine (9) Pancreatitis (10) Pyelonephritis (11) Suicidal Ideation Surgical Problems: (1) S/P cholecystectomy Family History Diabetes mellitus FH: cancer FH: heart disease FH: lung disease FHx: gallbladder disease Kidney disease or stones Social History Smoking Status: Never Smoker Alcohol Use: none Drug Use: none Marital Status: single Housing Status: lives with family Occupation Status: disabled Current/Historical Medications Scheduled Cyanocobalamin (Vitamin B-12), 1,000 MCG PO QAM Cyclobenzaprine Hcl (Flexeril), 10 MG PO HS Cyclobenzaprine Hcl (Flexeril), 5 MG PO QAM Dicyclomine HCl (Dicyclomine HCl), 20 MG PO BID Ferrous Sulfate (Ferrous Sulfate), 325 MG PO DAILY Fluticasone Propionate (Inhala (Flovent Diskus), 1 PUFF INH BID Gabapentin (Gabapentin), 600 MG PO TID Hydroxyzine HCl (Hydroxyzine Pamoate), 75 MG PO HS Lamotrigine (Lamotrigine), 200 MG PO QAM Levothyroxine Sodium (Levothyroxine Sodium), 50 MCG PO QAM Loratadine (Claritin), 10 MG PO QAM Meloxicam (Mobic), 7.5 MG PO DAILY Norethin Acet & Estrad-Fe (Gildess Fe .09/11), 1 TAB PO QAM Pantoprazole (Pantoprazole Sodium), 40 MG PO QAM Prazosin Hcl (Prazosin), 4 MG PO HS Topiramate (Topiramate), 150 MG PO BID Venlafaxine Hcl (Effexor Extended Rel), 150 MG PO QAM Scheduled PRN Albuterol Sulfate (Proair Respiclick), 2-4 PUFFS INH Q4H PRN for Cough/ Shortness Of Breath Epinephrine (Epipen), 0.3 MG IM UD PRN for ALLERGIC REACTION Fluticasone Propionate (Fluticasone Propionate), 2 SPRAYS JERRY QAM PRN for Nasal Congestion Sumatriptan Succinate (Imitrex), 100 MG PO UD PRN for Migraine Allergies Coded Allergies: BEE STING (Verified Allergy, Severe, ANAPHYLAXIS, 10/08/16) Morphine (Verified Adverse Reaction, Intermediate, HALLUCINATIONS, 10/08/16 ) Physical Exam Vital Signs Date Time Temp Pulse Resp B/P (MAP) Pulse Ox O2 Delivery O2 Flow Rate FiO2 10/09/16 03:47 82 18 136/83 98 Room Air 10/09/16 02:36 86 18 123/84 98 Room Air 10/08/16 23:14 80 18 123/91 98 Room Air 10/08/16 22:19 78 18 156/80 98 Room Air 10/08/16 21:19 79 18 160/92 99 Room Air 10/08/16 20:04 76 20 153/84 99 Room Air 10/08/16 18:50 36.8 90 20 149/102 95 Room Air Physical Exam GENERAL: alert, well appearing, well nourished, no distress, non-toxic EYE EXAM: normal conjunctiva, PERRL and EOM's grossly intact OROPHARYNX: no exudate, no erythema, lips, buccal mucosa, and tongue normal and mucous membranes are moist NECK: supple, no nuchal rigidity, no adenopathy, non-tender LUNGS: Clear to auscultation. Normal chest wall mechanics HEART: no murmurs, S1 normal and S2 normal ABDOMEN: Right lower quadrant tenderness. Obese. abdomen soft, normo-active bowel sounds, no masses, no rebound or guarding. BACK: Back is symmetrical on inspection and there is no deformity, no midline tenderness, no CVA tenderness. SKIN: no rashes and no bruising UPPER EXTREMITIES: upper extremities are grossly normal. LOWER EXTREMITIES: No pitting edema. NEURO EXAM: Normal sensorium, cranial nerves II-XII grossly intact, normal speech, no gross weakness of arms, no gross weakness of legs. Medical Decision & Procedures ER Provider Diagnostic Interpretation: Radiology results have been interpreted by the radiologist and reviewed by me. ABDOMEN AND PELVIS CT WITHOUT CONTRAST CT DOSE: 1290.05 mGy.cm HISTORY: Right lower quadrant abdominal pain. TECHNIQUE: Multiaxial CT images of the abdomen and pelvis were performed without contrast. COMPARISON STUDY: Abdomen and pelvis CT 04/14/2016. FINDINGS: There are 3 stones within the left kidney with the largest measuring 4 mm. No definite right renal calculi. No ureteral or bladder stones identified. Stable 1.5 cm hypodense lesion within the right kidney. This is incompletely characterized on this noncontrast study but statistically represents a cyst. Tiny fat-containing umbilical hernia, unchanged. Normal appendix. No bladder wall thickening. The uterus and bilateral adnexa are unremarkable. Suboptimal evaluation for bowel pathology due to the lack of intravenous and oral contrast. However, there is no definite bowel wall thickening or obstruction. The unenhanced liver, spleen, and pancreas are unremarkable. Cholecystectomy. No retroperitoneal lymphadenopathy. Stable small bilateral adrenal gland nodules. The lung bases are clear. IMPRESSION: 1. Left-sided nephrolithiasis. No ureteral stones. No hydronephrosis. 2. Normal appendix. 3. No definite bowel wall thickening or obstruction. 4. Cholecystectomy. Electronically signed by: Adair Bennett M.D. 10/08/2016 8:46 PM Dictated Date/Time: 10/08/2016 8:38 PM PELVIC ULTRASOUND, TRANSABDOMINAL AND TRANSVAGINAL HISTORY: Right lower quadrant abdominal pain. COMPARISON: Abdomen and pelvis CT 10/08/2016. FINDINGS: Uterus: No uterine masses identified. The uterus measures 7.9 x 3.5 x 4.2 cm. There a few small nabothian cysts. Endometrial stripe: 1.1 cm thickness. Right ovary: Normal in size and demonstrates normal color flow. Left ovary: Obscured by overlying bowel gas. Miscellaneous:No pelvic free fluid. IMPRESSION: The left ovary was obscured by overlying bowel gas. The uterus and right ovary are within normal limits. Electronically signed by: Adair Bennett M.D. 10/08/2016 10:23 PM Dictated Date/Time: 10/08/2016 10:22 PM Laboratory Results 10/08/16 19:16 Red Blood Count 4.32, Mean Corpuscular Volume 88.7, Mean Corpuscular Hemoglobin 28.9, Mean Corpuscular Hemoglobin Concent 32.6, Mean Platelet Volume 8.6, Neutrophils (%) (Auto) 58.4, Lymphocytes (%) (Auto) 31.7, Monocytes (%) (Auto) 7.2, Eosinophils (%) (Auto) 1.5, Basophils (%) (Auto) 0.5, Neutrophils # (Auto) 5.72, Lymphocytes # (Auto) 3.10, Monocytes # (Auto) 0.70, Eosinophils # (Auto) 0.15, Basophils # (Auto) 0.05 10/08/16 19:16 Test 10/08/16 18:55 10/08/16 19:16 Urine Color YELLOW Urine Appearance CLOUDY (CLEAR) Urine pH 8.5 (4.5-7.5) Urine Specific [place] 1.017 (1.000-1.030) Urine Protein NEG (NEG) Urine Glucose (UA) NEG (NEG) Urine Ketones NEG (NEG) Urine Occult Blood NEG (NEG) Urine Nitrite NEG (NEG) Urine Bilirubin NEG (NEG) Urine Urobilinogen NEG (NEG) Urine Leukocyte Esterase TRACE (NEG) Urine WBC (Auto) 1-5 /hpf (0-5) Urine RBC (Auto) 0-4 /hpf (0-4) Urine Hyaline Casts (Auto) 1-5 /lpf (0-5) Urine Epithelial Cells (Auto) >30 /lpf (0-5) Urine Bacteria (Auto) 1+ (NEG) Urine Test NEG (NEG) White Blood Count 9.79 K/uL (4.8-10.8) Red Blood Count 4.32 M/uL (4.2-5.4) Hemoglobin 12.5 g/dL (12.0-16.0) Hematocrit 38.3 % (37-47) Mean Corpuscular Volume 88.7 fL (80-100) Mean Corpuscular Hemoglobin 28.9 pg (25-34) Mean Corpuscular Hemoglobin Concent 32.6 g/dl (32-36) Platelet Count 385 K/uL (130-400) Mean Platelet Volume 8.6 fL (7.4-10.4) Neutrophils (%) (Auto) 58.4 % Lymphocytes (%) (Auto) 31.7 % Monocytes (%) (Auto) 7.2 % Eosinophils (%) (Auto) 1.5 % Basophils (%) (Auto) 0.5 % Neutrophils # (Auto) 5.72 K/uL (1.4-6.5) Lymphocytes # (Auto) 3.10 K/uL (1.2-3.4) Monocytes # (Auto) 0.70 K/uL (0.11-0.59) Eosinophils # (Auto) 0.15 K/uL (0-0.5) Basophils # (Auto) 0.05 K/uL (0-0.2) RDW Standard Deviation 40.8 fL (36.4-46.3) RDW Coefficient of Variation 12.7 % (11.5-14.5) Immature Granulocyte % (Auto) 0.7 % Immature Granulocyte # (Auto) 0.07 K/uL (0.00-0.02) Anion Gap 8.0 mmol/L (3-11) Est Creatinine Clear Calc Drug Dose 78.8 ml/min Estimated GFR () 84.0 Estimated GFR (Non- 72.4 BUN/Creatinine Ratio 9.9 (10-20) Lactic Acid Level 1.4 mmol/L (0.4-2.0) Calcium Level 8.4 mg/dl (8.5-10.1) Total Bilirubin 0.2 mg/dl (0.2-1) Aspartate Amino Transf (AST/SGOT) 10 U/L (15-37) Alanine Aminotransferase (ALT/SGPT) 17 U/L (12-78) Alkaline Phosphatase 46 U/L (45-117) Total Protein 7.6 gm/dl (6.4-8.2) Albumin 3.5 gm/dl (3.4-5.0) Globulin 4.1 gm/dl (2.5-4.0) Albumin/Globulin Ratio 0.9 (0.9-2) Lipase 214 U/L (73-393) Laboratory results per my review. Medications Administered Medications (Trade) Dose Ordered Sig/Shelli Route Start Time Stop Time Status Last Admin Dose Admin Ondansetron HCl (Zofran 8mg Iv) 8 mg NOW STAT IV 10/08/16 19:06 10/08/16 19:08 DC 10/08/16 19:24 8 MG Sodium Chloride 1,000 ml @ 999 mls/hr Q1H1M STAT IV 10/08/16 19:06 10/08/16 20:06 DC 10/08/16 19:23 999 MLS/HR Ketorolac Tromethamine (Toradol Inj) 30 mg NOW STAT IV 10/08/16 19:06 10/08/16 19:08 DC 10/08/16 19:24 30 MG Hydromorphone HCl (Dilaudid Inj) 0.5 mg NOW STAT IV 10/08/16 21:11 10/08/16 21:12 DC 10/08/16 21:19 0.5 MG ED Course 1854: The patient was evaluated in room A12B. A complete history and physical exam was performed. 1905: Ordered Toradol Inj 30 mg IV, Sodium Chloride 1000 ml @ 999 mls/hr IV, Zofran 8 mg IV. 2110: I reevaluated the patient and she is still having pain. I updated her on her test results. She will have a pelvic ultrasound. Ordered Dilaudid Inj 0.5 mg IV. 2257: I reevaluated the patient and she is resting. I discussed the findings with her. She will have an MRI. Medical Decision Differential diagnoses includes but is not limited to gastritis, peptic ulcer disease, GERD, gallbladder disease, pancreatitis, small bowel obstruction, acute coronary syndrome, pericarditis, ischemic bowel, irritable bowel disease, irritable bowel syndrome, appendicitis, diverticulitis, malignancy, hernia, urinary tract infection, torsion, /ectopic (if female), perforation, trauma, infectious. Medication Reconciliation: I attest that I have personally reviewed the patient' s current medication list. Blood pressure screening: Patient was found to have an elevated blood pressure and was referred to their primary doctor for recheck and further treatment. Unclear etiology of patient's pain despite extensive evaluation with labs and imaging. Considered GI//SHOW GIRL pathology, vascular pathology, Dictation from recent epidural steroid injection. No evidence of bacteremia/sepsis. No evidence of consultation from recent procedure. Patient well-appearing and able to rest with stable vital signs. Discussed with patient need for follow- up with payroll specialist as well as family doctor. Discussed symptoms to watch and return for. She verbalized understanding was agreeable with plan. [place] Drug Monitoring Program Search Results: no issues identified Impression Primary Impression: Right lower quadrant abdominal pain Additional Impression: Chronic back pain Scribe Attestation The scribe's documentation has been prepared under my direction and personally reviewed by me in its entirety. I confirm that the note above accurately reflects all work, treatment, procedures, and medical decision making performed by me. Departure Information Dispostion Home / Self-Care Referrals Dennis Khan M.D. (PCP) Patient Instructions My [facility] Additional Instructions Please call and follow up with your Back Specialist as well as your family doctor. Please continue regular medications as prescribed. If you have any new or concerning symptoms, please return the emergency room. Problem Qualifiers
[2016-10-08 19:25] LABS: URINE APPEARANCE CLOUDY (CLEAR); URINE BILIRUBIN NEG (NEG); URINE COLOR YELLOW; URINE EPITHELIAL CELL AUTO >30 /lpf (0-5); URINE NITRITE NEG (NEG); URINE PH 8.5 (4.5-7.5); URINE SPECIFIC GRAVITY 1.017 (1.000-1.030); UROBILINOGEN NEG (NEG); ZZUR CULT IF INDIC CLEAN CATCH YES
[2016-10-08 19:26] LABS: BASO % 0.5 %; BASO ABS # 0.05 K/uL (0-0.2); COMPLETE YES; EOS % 1.5 %; HEMATOCRIT 38.3 % (37-47); IG% 0.7 %; LYMPH % 31.7 %; MEAN CELL VOLUME 88.7 fL (80-100); MEAN CORPUSCULAR HEMOGLOBIN 28.9 pg (25-34); MEAN CORPUSCULAR HGB CONC 32.6 g/dl (32-36); MEAN PLATELET VOLUME 8.6 fL (7.4-10.4); MONO % 7.2 %; NEUT % 58.4 %; PLATELET COUNT 385 K/uL (130-400); RED BLOOD COUNT 4.32 M/uL (4.2-5.4); WHITE BLOOD COUNT 9.79 K/uL (4.8-10.8)
[2016-10-08 19:27] LABS: MANUAL MICROSCOPIC REQUIRED? NO; REVIEW REQ? NO
[2016-10-08 19:42] LABS: BUN/CREATININE RATIO 9.9 (10-20); CALCIUM 8.4 mg/dl (8.5-10.1); CREATININE 0.96 mg/dl (0.60-1.20); POTASSIUM 3.8 mmol/L (3.5-5.1)
[2016-10-08 19:45] LABS: ALB/GLOB RATIO 0.9 (0.9-2)
[2016-10-08] MEDS ORDERED: MELO7.5T5 PO (20:18)
--- NOTE | 2016-10-08 20:47 | DIAGNOSTIC IMAGING REPORT ---
ABDOMEN AND PELVIS CT WITHOUT CONTRAST CT DOSE: 1290.05 mGy.cm HISTORY: Right lower quadrant abdominal pain. TECHNIQUE: Multiaxial CT images of the abdomen and pelvis were performed without contrast. COMPARISON STUDY: Abdomen and pelvis CT 04/14/2016. FINDINGS: There are 3 stones within the left kidney with the largest measuring 4 mm. No definite right renal calculi. No ureteral or bladder stones identified. Stable 1.5 cm hypodense lesion within the right kidney. This is incompletely characterized on this noncontrast study but statistically represents a cyst. Tiny fat-containing umbilical hernia, unchanged. Normal appendix. No bladder wall thickening. The uterus and bilateral adnexa are unremarkable. Suboptimal evaluation for bowel pathology due to the lack of intravenous and oral contrast. However, there is no definite bowel wall thickening or obstruction. The unenhanced liver, spleen, and pancreas are unremarkable. Cholecystectomy. No retroperitoneal lymphadenopathy. Stable small bilateral adrenal gland nodules. The lung bases are clear. IMPRESSION: 1. Left-sided nephrolithiasis. No ureteral stones. No hydronephrosis. 2. Normal appendix. 3. No definite bowel wall thickening or obstruction. 4. Cholecystectomy. Electronically signed by: Adair Bennett M.D. 10/08/2016 8:46 PM Dictated Date/Time: 10/08/2016 8:38 PM
[2016-10-08] MEDS ORDERED: HYDROmorphone INJ 0.5 MG/0.5 ML SYR IV STA (21:11)
--- NOTE | 2016-10-08 22:25 | DIAGNOSTIC IMAGING REPORT ---
PELVIC ULTRASOUND, TRANSABDOMINAL AND TRANSVAGINAL HISTORY: Right lower quadrant abdominal pain. COMPARISON: Abdomen and pelvis CT 10/08/2016. FINDINGS: Uterus: No uterine masses identified. The uterus measures 7.9 x 3.5 x 4.2 cm. There a few small nabothian cysts. Endometrial stripe: 1.1 cm thickness. Right ovary: Normal in size and demonstrates normal color flow. Left ovary: Obscured by overlying bowel gas. Miscellaneous:No pelvic free fluid. IMPRESSION: The left ovary was obscured by overlying bowel gas. The uterus and right ovary are within normal limits. Electronically signed by: Adair Bennett M.D. 10/08/2016 10:23 PM Dictated Date/Time: 10/08/2016 10:22 PM
[2016-10-09] MEDS ORDERED: GADAVIST IV PRN (03:30)
[2016-10-09 03:47] VITALS: BP 136/83; PULSE 82; O2SAT 98
--- NOTE | 2016-10-09 07:21 | EMERGENCY ROOM VISIT NOTE ---
ED Visit Note 41 yr old female initially evaluated and worked-up by Dr Shaw. Extensive testing including CT abdo/pelv and multiple labs without acute findings for her abdo/back pain. Signed out to me with plan to go home as long as MRI read unremarkable. Patient evaluated and in no distress, laying on bed comfortably. MRI report unchanged from previous in April. She is in no distress and looks well. Stress follow up with her PCP and pain management provider. She has no neuro deficits and is stable for discharge.
--- NOTE | 2016-10-09 07:50 | DIAGNOSTIC IMAGING REPORT ---
MRI OF THE LUMBAR SPINE WITH AND WITHOUT CONTRAST CLINICAL HISTORY: Increased lower back pain radiating into lower extremities. Recent epidural injection. COMPARISON STUDY: Lumbar spine MRI May 12, 2016. TECHNIQUE: Utilizing a 1.5 Radha magnet and dedicated coil, multiplanar, multiecho imaging of the lumbar spine was performed before and after uneventful IV administration of 9.5 mL of Gadavist. FINDINGS: For purposes of numbering on this exam, the L5-S1 disc space is assigned to axial image 33 of 36. Alignment of lumbar spine is anatomic. Vertebral body heights are maintained. There is no intracanalicular mass or fluid collection. Conus terminates at the mid L2 level. Paravertebral soft tissues are unremarkable. The appearance of the lumbar spine is unchanged since exam of May 12, 2016. L1-2: The central canal and neural foramen are patent. L2-3: The central canal and neural foramen are patent. L3-4: The central canal and neural foramen are patent. L4-5: There is an annular tear with small central disc protrusion. Central canal and neural foramen are patent. L5-S1: Central canal and neural foramen are patent. IMPRESSION: 1. No acute abnormality within the lumbar spine by MRI. No change since exam of May 12, 2016. 2. No change in a small central disc protrusion at L4-L5. Patent central canal and neural foramen. Electronically signed by: Saud Espinosa M.D. 10/09/2016 7:48 AM Dictated Date/Time: 10/09/2016 7:43 AM
[2017-01-13] MEDS ORDERED: KFL500 PO (13:18)
[2017-02-17] MEDS ORDERED: CEPH-571 PO (19:20)
== END 2016-10-09 03:49 | disposition home or self-care (01) ==
LOC: EDBD 18:44 → C.EDA 18:45
DX: R10.31 Right lower quadrant pain (principal); G89.29 Other chronic pain; M54.9 Dorsalgia, unspecified; F31.81 Bipolar II disorder; J45.909 Unspecified asthma, uncomplicated; F41.9 Anxiety disorder, unspecified; K86.1 Other chronic pancreatitis; Z87.440 Personal history of urinary (tract) infections; Z79.899 Other long term (current) drug therapy; Z88.5 Allergy status to narcotic agent; Z91.030 Bee allergy status; Z83.3 Family history of diabetes mellitus; Z80.9 Family history of malignant neoplasm, unspecified; Z82.49 Family history of ischemic heart disease and other diseases of the circulatory system; Z84.1 Family history of disorders of kidney and ureter

== ENCOUNTER 2016-10-14 16:03 | Emergency (ER) | payer OTHER ==
[~2016-10-14] VITALS: Ht 162.6 cm; Wt 95.2 kg
[2016-10-14 16:03] VITALS: Ht 162.6 cm; Wt 95.2 kg
[~2016-10-14 16:03] MED LIST changes: +ALBU18002 INH; -BCPILLS PO; +CLR10 PO; +CYAN10005 PO; +CYCL10TA6 PO; +DICY1TAB25 PO; +EFFSR150 PO; +EPP3/2 IM; +FERR325T PO; +FLNIN/ NAE; +FLUT1AER4 INH; +LEVO50TA6 PO; +MELO7.5T5 PO; +NORE-3 PO; +NRN600 PO; +PRAZ2CAP2 PO; +PRT/40 PO
[2016-10-14] MEDS ORDERED: KETOROLAC TROMETHAMINE 60 MG/2 ML VIAL IM STA (16:43)
--- NOTE | 2016-10-14 17:25 | EMERGENCY ROOM VISIT NOTE ---
History Report prepared by Antonieta: Britni Rogers Under the Supervision of: Dr. Tian Cherry M.D. First contact with patient: 16:35 Chief Complaint: ABDOMINAL PAIN Stated Complaint: AB PAIN Nursing Triage Summary: Patient arrived to ER via EMS. Per EMS, patient c/o of abdominal pain which radiates to her back. Patient reports abdominal pain moves to below both ribs and nausea. Pain started today at 2:30 pm. Patient was last seen in the ER last Saturday for similar symptoms. Patient has hx of chronic back pain, recurrent abdominal pain, GERD, IBS and Renal problems. History of Present Illness The patient is a 41 year old female who presents to the Emergency Room with complaints of persistent abdominal pain starting 1430 today. The abdominal pain goes into her ribs which she has not experienced before. The patient was here 1 week ago and had a CT, ultrasound, and MRI which revealed a cracked disc in her back. She developed blisters around her mouth after the visit which are resolving. She also reports muscle spasms in her back which is going into her hips causing her hip pain. She has not experienced this before. The pain worsens when she walks. Source of History: patient Onset: 1429 today Position: abdomen Quality: other (persistent) Timing: other (persistent) Modifying Factors (Worsening): other (walking) Associated Symptoms: + back pain Note: Pt reports hip pain, rib pain. Review of Systems All systems have been listed, reviewed, and are negative other than those previously mentioned. Please see Additional Medical History Sheet. Past Medical & Surgical Medical Problems: (1) Anxiety State Nos (2) Asthma (3) Asthma, Unspecified (4) Bipolar II disorder (5) Chronic back pain (6) Depression (7) Kidney stone (8) Migraine Unspecified W/O Intractable Migraine (9) Pancreatitis (10) Pyelonephritis (11) Suicidal Ideation Surgical Problems: (1) S/P cholecystectomy Family History Diabetes mellitus FH: cancer FH: heart disease FH: lung disease FHx: gallbladder disease Kidney disease or stones Social History Smoking Status: Never Smoker Alcohol Use: none Drug Use: none Marital Status: single Housing Status: lives with family Occupation Status: disabled Current/Historical Medications Scheduled Cyanocobalamin (Vitamin B-12), 1,000 MCG PO QAM Cyclobenzaprine Hcl (Flexeril), 10 MG PO HS Cyclobenzaprine Hcl (Flexeril), 5 MG PO QAM Dicyclomine HCl (Dicyclomine HCl), 20 MG PO BID Ferrous Sulfate (Ferrous Sulfate), 325 MG PO DAILY Fluticasone Propionate (Inhala (Flovent Diskus), 1 PUFF INH BID Gabapentin (Gabapentin), 600 MG PO TID Hydroxyzine HCl (Hydroxyzine Pamoate), 75 MG PO HS Lamotrigine (Lamotrigine), 200 MG PO QAM Levothyroxine Sodium (Levothyroxine Sodium), 50 MCG PO QAM Loratadine (Claritin), 10 MG PO QAM Meloxicam (Mobic), 7.5 MG PO DAILY Norethin Acet & Estrad-Fe (Gildess Fe ), 1 TAB PO QAM Pantoprazole (Pantoprazole Sodium), 40 MG PO QAM Prazosin Hcl (Prazosin), 4 MG PO HS Topiramate (Topamax), 200 MG PO BID Venlafaxine Hcl (Effexor Extended Rel), 150 MG PO QAM Scheduled PRN Albuterol Sulfate (Proair Respiclick), 2-4 PUFFS INH Q4H PRN for Cough/ Shortness Of Breath Epinephrine (Epipen), 0.3 MG IM UD PRN for ALLERGIC REACTION Fluticasone Propionate (Fluticasone Propionate), 2 SPRAYS JERRY QAM PRN for Nasal Congestion Sumatriptan Succinate (Imitrex), 100 MG PO UD PRN for Migraine Allergies Coded Allergies: BEE STING (Verified Allergy, Severe, ANAPHYLAXIS, 10/08/16) Morphine (Verified Adverse Reaction, Intermediate, HALLUCINATIONS, 10/08/16 ) Physical Exam Vital Signs Date Time Temp Pulse Resp B/P (MAP) Pulse Ox O2 Delivery O2 Flow Rate FiO2 10/14/16 18:45 37.1 82 18 134/87 96 10/14/16 18:26 82 18 134/87 96 Room Air 10/14/16 17:36 82 97 10/14/16 17:31 151/95 10/14/16 17:06 78 17 98 10/14/16 17:01 134/86 10/14/16 16:57 80 16 97 10/14/16 16:30 157/90 10/14/16 16:27 95 23 98 10/14/16 16:22 92 18 134/90 96 Room Air 10/14/16 16:17 88 10/14/16 16:10 148/94 10/14/16 16:03 37.1 90 15 148/94 98 Room Air Physical Exam GENERAL: Patient awake, alert, oriented x 3. Patient follows commands. Patient does not appear toxic. Patient is adequately hydrated and well- nourished. SKIN: No erythema, pallor, cyanosis or rash HEENT: Normal head, pupils equal, reactive to light and accommodation. Oral cavity and posterior pharynx appear normal. Neck: Without adenopathy, no neck vein distention. LUNGS: Clear to auscultation. No wheezes, no rales, no rhonchi. HEART: No murmurs. No gallops. No rubs ABDOMEN: Obese. No masses, no rebound, no hepatomegaly or splenomegaly. BACK: Vague tenderness to the lower lumbar spine, no ecchymosis, no signs of trauma, no CVA tenderness. EXTREMITIES: No signs of trauma or infection. Motor sensory and circulatory intact to both feet. NEUROLOGIC: Cranial nerves II-XII within normal limits. No gross motor sensory function deficits. Medical Decision & Procedures ER Provider Diagnostic Interpretation: X ray results are stated below per my interpretation and the radiologist's interpretation. TWO VIEW CHEST CLINICAL HISTORY: Atypical chest pain. FINDINGS: PA and lateral chest radiographs are compared to study dated 08/25/2016. The cardiomediastinal silhouette is unremarkable. The lungs and pleural spaces are clear. There is no pneumothorax. The bony thorax appears intact. Cholecystectomy clips are noted in the right upper quadrant. IMPRESSION: No active disease in the chest. Electronically signed by: Meño Hendrickson M.D. 10/14/2016 5:58 PM Dictated Date/Time: 10/14/2016 5:57 PM Medications Administered Medications (Trade) Dose Ordered Sig/Shelli Route Start Time Stop Time Status Last Admin Dose Admin Ketorolac Tromethamine (Toradol Inj) 60 mg NOW STAT IM 10/14/16 16:43 10/14/16 16:44 DC 10/14/16 17:29 60 MG ED Course 1636: Past medical records reviewed. The patient was evaluated in room A11B. A complete history and physical examination was performed. 1643: Toradol Inj 60 mg IM. 5: Upon reevaluation, the patient appeared to have improvement of her symptoms. I discussed today's findings with her. She verbalized agreement of the treatment plan. She was discharged home. Medical Decision Nurses notes reviewed. Medical history sheet reviewed. Differential diagnosis includes but is not limited to: chronic abdominal pain, chronic back pain, pneumonia. Medication Reconciliation: I attest that I have personally reviewed the patient' s current medication list. Blood Pressure Screening: Patient was found to have an elevated blood pressure and was referred to their primary doctor for recheck and further treatment. The patient's exam is unremarkable. Chest x-ray does not reveal any infiltrates , pneumothorax or hemothorax. The patient did receive Toradol with relief. I do not believe the patient needs any additional interventions or medications. Most likely her pain is musculoskeletal in nature. Impression Primary Impression: Rib pain Scribe Attestation The scribe's documentation has been prepared under my direction and personally reviewed by me in its entirety. I confirm that the note above accurately reflects all work, treatment, procedures, and medical decision making performed by me. Departure Information Dispostion Home / Self-Care Referrals Dennis Khan M.D. (PCP) Patient Instructions My [facility] Additional Instructions Continue Mobic and all of your current medications as prescribed. Follow-up with your family physician regarding any ongoing pain and blood pressure recheck.
[2016-10-14] MEDS ORDERED: TOPI200T14 PO (17:27)
--- NOTE | 2016-10-14 17:59 | DIAGNOSTIC IMAGING REPORT ---
TWO VIEW CHEST CLINICAL HISTORY: Atypical chest pain. FINDINGS: PA and lateral chest radiographs are compared to study dated 08/25/2016. The cardiomediastinal silhouette is unremarkable. The lungs and pleural spaces are clear. There is no pneumothorax. The bony thorax appears intact. Cholecystectomy clips are noted in the right upper quadrant. IMPRESSION: No active disease in the chest. Electronically signed by: Meño Hendrickson M.D. 10/14/2016 5:58 PM Dictated Date/Time: 10/14/2016 5:57 PM
[2016-10-14 18:45] VITALS: BP 134/87; PULSE 82; TEMP 37.1; O2SAT 96
[2017-01-13] MEDS ORDERED: KFL500 PO (13:18)
== END 2016-10-14 18:45 | disposition home or self-care (01) ==
LOC: EDBD 16:03 → C.EDA 16:04
DX: R07.81 Pleurodynia (principal); F31.81 Bipolar II disorder; J45.909 Unspecified asthma, uncomplicated; F41.9 Anxiety disorder, unspecified; K86.1 Other chronic pancreatitis; G89.29 Other chronic pain; Z87.440 Personal history of urinary (tract) infections; Z87.442 Personal history of urinary calculi; Z90.49 Acquired absence of other specified parts of digestive tract; Z79.899 Other long term (current) drug therapy; Z91.030 Bee allergy status; Z88.5 Allergy status to narcotic agent; Z83.3 Family history of diabetes mellitus; Z80.9 Family history of malignant neoplasm, unspecified; Z83.49 Family history of other endocrine, nutritional and metabolic diseases; Z83.79 Family history of other diseases of the digestive system; Z84.1 Family history of disorders of kidney and ureter

== ENCOUNTER 2017-01-08 13:44 | Inpatient (IN) | payer OTHER ==
[~2017-01-08] VITALS: Ht 162.6 cm; Wt 96.2 kg
[~2017-01-08 13:44] MED LIST changes: +TOPI200T14 PO; -TPM100 PO
[2017-01-08] MEDS ORDERED: CLOT1CRE12 TOP (14:30)
[2017-01-08] MEDS ORDERED: RIZA1TAB7 PO (14:30)
[2017-01-08] MEDS ORDERED: BCTCR/30 EXT (14:30)
[2017-01-08] MEDS ORDERED: ONDANSETRON INJ 2 MG/ML 2 ML VIAL IV STA (14:33)
[2017-01-08] MEDS ORDERED: SODIUM CHLORIDE 0.9% 1000ML 1,000 ML IV STA ×3 (14:33→17:45)
[2017-01-08] MEDS ORDERED: KETOROLAC TROMETHAMINE 30 MG/ML VIAL IV STA (14:33)
--- NOTE | 2017-01-08 14:41 | EMERGENCY ROOM VISIT NOTE ---
History Report prepared by Antonieta: Wayne Frazier Under the Supervision of: Dr. Miller Raymond M.D. First contact with patient: 14:28 Chief Complaint: ABDOMINAL PAIN Stated Complaint: ABD PAIN, HURTS TO URINATE, PAIN IN CHEST History of Present Illness The patient is a 41 year old female with chronic abdominal pain who presents to the Emergency Room with complaints of persistent abdominal pain that started earlier this morning. She says that this is similar to the abdominal pain she has had in the past, and the last time she was here for the abdominal pain was a few months ago. She notes that she has been seen for the abdominal pain, and it has not been determined as to why she has had the pain. The patient says that what is unusual today is that she has been having low abdominal pain when she urinates. She denies any burning with urination or hematuria however. She adds that the abdominal pain radiates into her chest, and wraps around her flanks into her back as well. The patient says that she cannot lay comfortably due to the pain, and the pain has been making her persistently nauseous. She says that she feels like vomiting but she can't. The patient notes that she felt fine before the pain came on this morning. Her last bowel movement was this morning, and it was normal. She denies any fevers, chills, cough, congestion, or diarrhea. The patient states that she takes Gabapentin daily, and she took it earlier today. She notes that she has fibromyalgia. Source of History: patient Onset: Earlier this morning Position: abdomen Timing: other (persistent) Modifying Factors (Worsening): urination Associated Symptoms: + chest pain, + nausea, + back pain, + urinary symptoms (low abdominal pain with urination, denies burning with urination or hematuria) , No fevers, No chills, No cough, No vomiting, No diarrhea Note: Associated symptoms: Flank pain. Denies congestion. Review of Systems See HPI for pertinent positives and negatives. A total of ten systems were reviewed and were otherwise negative. Past Medical & Surgical Medical Problems: (1) Anxiety (2) Asthma (3) Bipolar II disorder (4) Fibromyalgia (5) H/O migraine (6) H/O renal calculi (7) H/O urinary tract infection (8) History of low back pain (9) Hypothyroidism Surgical Problems: (1) S/P cholecystectomy Social History Problems: (1) Anxiety State Nos (2) Asthma, Unspecified (3) Migraine Unspecified W/O Intractable Migraine (4) Pancreatitis Family History Diabetes mellitus FH: cancer FH: heart disease FH: lung disease FHx: gallbladder disease Kidney disease or stones Social History Smoking Status: Never Smoker Alcohol Use: none Drug Use: none Marital Status: single Housing Status: lives with family Occupation Status: disabled Current/Historical Medications Scheduled Cyanocobalamin (Vitamin B-12), 1,000 MCG PO QAM Cyclobenzaprine Hcl (Flexeril), 10 MG PO HS Cyclobenzaprine Hcl (Flexeril), 5 MG PO QAM Dicyclomine HCl (Dicyclomine HCl), 20 MG PO BID Ferrous Sulfate (Ferrous Sulfate), 325 MG PO DAILY Fluticasone Propionate (Inhala (Flovent Diskus), 1 PUFF INH BID Gabapentin (Gabapentin), 600 MG PO TID Hydroxyzine Hcl (Atarax), 75 MG PO HS Lamotrigine (Lamotrigine), 200 MG PO QAM Levothyroxine Sodium (Levothyroxine Sodium), 50 MCG PO QAM Loratadine (Claritin), 10 MG PO QAM Meloxicam (Mobic), 15 MG PO DAILY Mupirocin 2% (Bactroban 2%), 1 APPLN EXT UD Norethin Acet & Estrad-Fe (Gildess Fe ), 1 TAB PO QAM Pantoprazole (Pantoprazole Sodium), 40 MG PO QAM Prazosin Hcl (Prazosin), 4 MG PO HS Topiramate (Topamax), 1 TAB PO BID Venlafaxine Hcl (Effexor Extended Rel), 150 MG PO QAM Scheduled PRN Albuterol Sulfate (Proair Respiclick), 2-4 PUFFS INH Q4H PRN for Cough/ Shortness Of Breath Epinephrine (Epipen), 0.3 MG IM UD PRN for ALLERGIC REACTION Fluticasone Propionate (Fluticasone Propionate), 2 SPRAYS JERRY QAM PRN for Nasal Congestion Rizatriptan Benzoate (Rizatriptan Benzoate), 10 MG PO for Pain Allergies Coded Allergies: BEE STING (Verified Allergy, Severe, ANAPHYLAXIS, 01/08/17) Morphine (Verified Adverse Reaction, Intermediate, HALLUCINATIONS, 01/08/17 ) Physical Exam Vital Signs Date Time Temp Pulse Resp B/P (MAP) Pulse Ox O2 Delivery O2 Flow Rate FiO2 01/08/17 16:17 104 01/08/17 15:54 103 16 165/95 97 Room Air 01/08/17 15:07 106 16 155/100 96 Room Air 01/08/17 13:52 37.1 104 16 139/91 96 Room Air Physical Exam GENERAL: Awake, alert, well-appearing, in no distress HENT: Normocephalic, atraumatic. Dry mucous membranes. EYES: Normal conjunctiva. Sclera non-icteric. NECK: Supple. No nuchal rigidity. FROM. No JVD. RESPIRATORY: Clear to auscultation. CARDIAC: Regular rate, normal rhythm. Extremities warm and well perfused. Pulses equal. ABDOMEN: Soft, non-distended. Suprapubic tenderness to palpation, no peritoneal signs. No rebound or guarding. No masses. RECTAL: Deferred. MUSCULOSKELETAL: Chest examination reveals no tenderness. The back is symmetrical on inspection without obvious abnormality. There is no CVA tenderness to palpation. No joint edema. LOWER EXTREMITIES: Calves are equal size bilaterally and non-tender. No edema. No discoloration. NEURO: Normal sensorium. No sensory or motor deficits noted. SKIN: No rash or jaundice noted. Medical Decision & Procedures ER Provider Diagnostic Interpretation: CT: Radiology results as stated below per my review and radiologist interpretation CT ABD/PELVIS IV CONTRAST ONLY CLINICAL HISTORY: Lower abdominal pain COMPARISON STUDY: 10/08/2016 TECHNIQUE: Following the IV administration of 116 mL of Optiray-320, CT scan of the abdomen and pelvis was performed from the lung bases to the proximal femurs. Images are reviewed in the axial, sagittal, and coronal planes. IV contrast was administered without complication. A dose lowering technique was utilized adhering to the principles of ALARA. CT DOSE: 1022.48 mGycm FINDINGS: Lower chest: The heart is normal in size and configuration, without pericardial effusion. The lung bases and pleural spaces are clear. Liver: The contrast-enhanced liver is normal in size, contour, and attenuation. There is no intrahepatic biliary ductal dilatation. The hepatic veins and portal veins are patent. Gallbladder: Surgically absent Spleen: Normal in size and attenuation. Pancreas: Unremarkable. Adrenal glands: Unremarkable. Kidneys: There is a 2.5 mm nonobstructing right renal calculus. There is bilateral renal cortical scarring. There is mild left-sided perirenal and periureteral edema. There is subtle patchy enhancement left renal parenchyma. Clinical correlation in regards to acute pyelonephritis is recommended. There is a 2 cm right renal cyst. Bowel: There are no transition zones indicate bowel obstruction. The appendix appears normal. There is no acute diverticulitis. Peritoneum: There is no intraperitoneal free air or abdominal ascites. There is a small fat-containing umbilical hernia Vasculature: The abdominal aorta is normal in course and caliber. Adenopathy: None. Pelvic viscera: The bladder, and pelvic viscera are unremarkable. Skeletal structures: No destructive osseous lesions are seen. IMPRESSION: 1. No evidence of bowel obstruction. No evidence of free air 2. Normal appendix. No evidence of acute diverticulitis 3. Bilateral renal cortical scarring 4. Right-sided nephrolithiasis 5. Subtle inhomogeneous enhancement of the left renal cortex. Subtle perinephric and periureteral edema on the left with minimal fullness of the left renal collecting system. Likely diagnostic considerations include pyelonephritis, or a recently passed calculus. Clinical correlation in this regard is advocated Electronically signed by: Gray Schultz M.D. 01/08/2017 5:10 PM Dictated Date/Time: 01/08/2017 5:04 PM Laboratory Results 01/08/17 14:50 Red Blood Count 4.14, Mean Corpuscular Volume 89.1, Mean Corpuscular Hemoglobin 30.4, Mean Corpuscular Hemoglobin Concent 34.1, Mean Platelet Volume 8.9, Neutrophils (%) (Auto) 85.6, Lymphocytes (%) (Auto) 6.5, Monocytes (%) (Auto) 6.3, Eosinophils (%) (Auto) 0.7, Basophils (%) (Auto) 0.2, Neutrophils # (Auto) 15.72, Lymphocytes # (Auto) 1.20, Monocytes # (Auto) 1.16, Eosinophils # (Auto) 0.13, Basophils # (Auto) 0.04 01/08/17 14:50 Test 01/08/17 14:50 01/08/17 16:16 White Blood Count 18.37 K/uL (4.8-10.8) Red Blood Count 4.14 M/uL (4.2-5.4) Hemoglobin 12.6 g/dL (12.0-16.0) Hematocrit 36.9 % (37-47) Mean Corpuscular Volume 89.1 fL (80-100) Mean Corpuscular Hemoglobin 30.4 pg (25-34) Mean Corpuscular Hemoglobin Concent 34.1 g/dl (32-36) Platelet Count 372 K/uL (130-400) Mean Platelet Volume 8.9 fL (7.4-10.4) Neutrophils (%) (Auto) 85.6 % Lymphocytes (%) (Auto) 6.5 % Monocytes (%) (Auto) 6.3 % Eosinophils (%) (Auto) 0.7 % Basophils (%) (Auto) 0.2 % Neutrophils # (Auto) 15.72 K/uL (1.4-6.5) Lymphocytes # (Auto) 1.20 K/uL (1.2-3.4) Monocytes # (Auto) 1.16 K/uL (0.11-0.59) Eosinophils # (Auto) 0.13 K/uL (0-0.5) Basophils # (Auto) 0.04 K/uL (0-0.2) RDW Standard Deviation 41.3 fL (36.4-46.3) RDW Coefficient of Variation 12.9 % (11.5-14.5) Immature Granulocyte % (Auto) 0.7 % Immature Granulocyte # (Auto) 0.12 K/uL (0.00-0.02) Urine Color YELLOW Urine Appearance TURBID (CLEAR) Urine pH 5.5 (4.5-7.5) Urine Specific Verdi 1.019 (1.000-1.030) Urine Protein 2+ (NEG) Urine Glucose (UA) NEG (NEG) Urine Ketones TRACE (NEG) Urine Occult Blood 3+ (NEG) Urine Nitrite NEG (NEG) Urine Bilirubin NEG (NEG) Urine Urobilinogen NEG (NEG) Urine Leukocyte Esterase LARGE (NEG) Urine WBC (Auto) >30 /hpf (0-5) Urine RBC (Auto) >30 /hpf (0-4) Urine Hyaline Casts (Auto) 1-5 /lpf (0-5) Urine Epithelial Cells (Auto) 20-30 /lpf (0-5) Urine Bacteria (Auto) 4+ (NEG) Anion Gap 9.0 mmol/L (3-11) Est Creatinine Clear Calc Drug Dose 89.5 ml/min Estimated GFR () 89.6 Estimated GFR (Non- 77.3 BUN/Creatinine Ratio 21.9 (10-20) Lactic Acid Level 1.1 mmol/L (0.4-2.0) Calcium Level 9.2 mg/dl (8.5-10.1) Total Bilirubin 0.5 mg/dl (0.2-1) Direct Bilirubin 0.1 mg/dl (0-0.2) Aspartate Amino Transf (AST/SGOT) 19 U/L (15-37) Alanine Aminotransferase (ALT/SGPT) 26 U/L (12-78) Alkaline Phosphatase 48 U/L (45-117) Total Protein 7.8 gm/dl (6.4-8.2) Albumin 3.7 gm/dl (3.4-5.0) Lipase 116 U/L (73-393) Troponin I < 0.015 ng/ml (0-0.045) Laboratory results reviewed by me Medications Administered Medications (Trade) Dose Ordered Sig/Shelli Route Start Time Stop Time Status Last Admin Dose Admin Sodium Chloride 1,000 ml @ 999 mls/hr Q1H1M STAT IV 01/08/17 14:33 01/08/17 15:51 DC 01/08/17 15:07 999 MLS/HR Ketorolac Tromethamine (Toradol Inj) 30 mg NOW STAT IV 01/08/17 14:33 01/08/17 14:39 DC 01/08/17 15:06 30 MG Ondansetron HCl (Zofran Inj) 4 mg NOW STAT IV 01/08/17 14:33 01/08/17 14:39 DC 01/08/17 15:06 4 MG Famotidine (Pepcid 20mg/100 ml) 20 mg ONE STAT IV 01/08/17 16:05 01/08/17 16:07 DC 01/08/17 16:23 20 MG Sodium Chloride 1,000 ml @ 999 mls/hr Q1H1M STAT IV 01/08/17 16:23 01/08/17 17:23 DC 01/08/17 17:14 999 MLS/HR Ceftriaxone Sodium 2000 mg/ Dextrose 70 ml @ 100 mls/hr ONE STAT IV 01/08/17 16:23 01/08/17 17:04 DC 01/08/17 17:44 100 MLS/HR Sodium Chloride 1,000 ml @ 999 mls/hr Q1H1M STAT IV 01/08/17 17:45 01/08/17 18:45 DC 01/08/17 18:53 999 MLS/HR ECG Indication: chest pain Rate (beats per minute): 103 Rhythm: sinus tachycardia Findings: no acute ischemic change, other (normal axis) Change: no significant change (compared to 04/16/16) ED Course 1431: The patient was evaluated in room B7. A complete history and physical exam was performed. 1433: Ordered Zofran Inj 4 mg IV, Toradol Inj 30 mg IV, NSS 1000 ml @ 999 mls/ hr IV. 1605: Ordered Pepcid 20mg/100 ml 20 mg IV. 1623: Ordered Ceftriaxone Sodium 2000 mg/Dextrose 70 ml @ 100 mls/hr IV, NSS 1000 ml @ 999 mls/hr IV. 1720: Upon reexamination, the patient was resting. I discussed the test results and treatment plan with her. She expressed verbal understanding and agreement with the treatment plan. The patient will be evaluated for further management. 1741: I discussed the patient with Shelbie Flynn PA-C - [facility] quad stayer - she will evaluate the patient for further treatment. Medical Decision I reviewed the patient's past medical history, medications, and the nursing notes as described above. Differential diagnosis includes but is not limited to: UTI, cystitis, pyelonephritis, renal stone, chronic abdominal pain, fibromyalgia. The patient is a 41 y/o woman with a pmhx of fibromyalgia, renal stones, presents to the ED with worsening lower abdominal pain since this morning. On arrival patient is in NAD, AFVSS. Labs notable for leukocytosis of 18. HR 100s despite 2L NS however Lactate wnl. CT with prominent renal pelvis c/w recently past stone vs pyelonephritis. Given grossly positive UA most likely pyelo. Given patient otherwise HD stable and non-toxic appearing with normal lactate broad spectrum abx deferred at this time. Given CTX. Patient admitted to medicine for further management. Medication Reconcilliation Current Medication List: was personally reviewed by me Blood Pressure Screening Patient's blood pressure: Elevated blood pressure Blood pressure disposition: Elevated BP felt to be situational Consults Time Called: [phone] Consulting Physician: YONATHAN Bolivar quad stayer Returned Call: [phone] I discussed the patient with YONATHAN Bolivar quad stayer - she will evaluate the patient for further treatment. Impression Primary Impression: Pyelonephritis Scribe Attestation The scribe's documentation has been prepared under my direction and personally reviewed by me in its entirety. I confirm that the note above accurately reflects all work, treatment, procedures, and medical decision making performed by me. Departure Information Dispostion Being Evaluated By Hospitalist Referrals No Doctor, Assigned (PCP) Patient Instructions My [facility]
[2017-01-08 15:11] LABS: URINE APPEARANCE TURBID (CLEAR); URINE BILIRUBIN NEG (NEG); URINE COLOR YELLOW; URINE EPITHELIAL CELL AUTO 20-30 /lpf (0-5); URINE NITRITE NEG (NEG); URINE PH 5.5 (4.5-7.5); URINE SPECIFIC GRAVITY 1.019 (1.000-1.030); UROBILINOGEN NEG (NEG); ZZUR CULT IF INDIC CLEAN CATCH YES
[2017-01-08 15:19] LABS: MANUAL MICROSCOPIC REQUIRED? NO; REVIEW REQ? NO
[2017-01-08 15:22] LABS: BASO % 0.2 %; BASO ABS # 0.04 K/uL (0-0.2); COMPLETE YES; EOS % 0.7 %; HEMATOCRIT 36.9 % (37-47); IG% 0.7 %; LYMPH % 6.5 %; MEAN CELL VOLUME 89.1 fL (80-100); MEAN CORPUSCULAR HEMOGLOBIN 30.4 pg (25-34); MEAN CORPUSCULAR HGB CONC 34.1 g/dl (32-36); MEAN PLATELET VOLUME 8.9 fL (7.4-10.4); MONO % 6.3 %; NEUT % 85.6 %; PLATELET COUNT 372 K/uL (130-400); RED BLOOD COUNT 4.14 M/uL (4.2-5.4); WHITE BLOOD COUNT 18.37 K/uL (4.8-10.8)
[2017-01-08 15:50] LABS: BUN/CREATININE RATIO 21.9 (10-20); CALCIUM 9.2 mg/dl (8.5-10.1); CREATININE 0.91 mg/dl (0.60-1.20); POTASSIUM 3.7 mmol/L (3.5-5.1)
[2017-01-08] MEDS ORDERED: FAMOTIDINE 20MG/102 ML D5W IV STA (16:05)
[2017-01-08] MEDS ORDERED: CEFTRIAXONE SOD INJ 2,000 MG in DEXTROSE 5% 50ML 50 ML IV STA (16:23)
[2017-01-08] MEDS ORDERED: OPTIRAY 320 IV PRN (16:45)
--- NOTE | 2017-01-08 17:11 | DIAGNOSTIC IMAGING REPORT ---
CT ABD/PELVIS IV CONTRAST ONLY CLINICAL HISTORY: Lower abdominal pain COMPARISON STUDY: 10/08/2016 TECHNIQUE: Following the IV administration of 116 mL of Optiray-320, CT scan of the abdomen and pelvis was performed from the lung bases to the proximal femurs. Images are reviewed in the axial, sagittal, and coronal planes. IV contrast was administered without complication. A dose lowering technique was utilized adhering to the principles of ALARA. CT DOSE: 1022.48 mGycm FINDINGS: Lower chest: The heart is normal in size and configuration, without pericardial effusion. The lung bases and pleural spaces are clear. Liver: The contrast-enhanced liver is normal in size, contour, and attenuation. There is no intrahepatic biliary ductal dilatation. The hepatic veins and portal veins are patent. Gallbladder: Surgically absent Spleen: Normal in size and attenuation. Pancreas: Unremarkable. Adrenal glands: Unremarkable. Kidneys: There is a 2.5 mm nonobstructing right renal calculus. There is bilateral renal cortical scarring. There is mild left-sided perirenal and periureteral edema. There is subtle patchy enhancement left renal parenchyma. Clinical correlation in regards to acute pyelonephritis is recommended. There is a 2 cm right renal cyst. Bowel: There are no transition zones indicate bowel obstruction. The appendix appears normal. There is no acute diverticulitis. Peritoneum: There is no intraperitoneal free air or abdominal ascites. There is a small fat-containing umbilical hernia Vasculature: The abdominal aorta is normal in course and caliber. Adenopathy: None. Pelvic viscera: The bladder, and pelvic viscera are unremarkable. Skeletal structures: No destructive osseous lesions are seen. IMPRESSION: 1. No evidence of bowel obstruction. No evidence of free air 2. Normal appendix. No evidence of acute diverticulitis 3. Bilateral renal cortical scarring 4. Right-sided nephrolithiasis 5. Subtle inhomogeneous enhancement of the left renal cortex. Subtle perinephric and periureteral edema on the left with minimal fullness of the left renal collecting system. Likely diagnostic considerations include pyelonephritis, or a recently passed calculus. Clinical correlation in this regard is advocated Electronically signed by: Gray Schultz M.D. 01/08/2017 5:10 PM Dictated Date/Time: 01/08/2017 5:04 PM
[2017-01-08] MEDS ORDERED: ONDANSETRON INJ 2 MG/ML 2 ML VIAL IV PRN (18:30)
[2017-01-08] MEDS ORDERED: ACETAMINOPHEN 325 MG TAB PO PRN (18:30)
[2017-01-08] MEDS ORDERED: TOPI100T34 PO (18:31)
[2017-01-08] MEDS ORDERED: HYDR-3124 PO (18:31)
[2017-01-08] MEDS ORDERED: LEVALBUTEROL 1.25MG/3ML NEB INH PRN (19:00)
[2017-01-08] MEDS ORDERED: ASPIRIN 81 MG CHEW PO STA (19:07)
--- NOTE | 2017-01-08 19:11 | DIAGNOSTIC IMAGING REPORT ---
CHEST ONE VIEW PORTABLE CLINICAL HISTORY: 41 years-old Female presenting with chest pain . TECHNIQUE: Portable upright AP view of the chest was obtained. COMPARISON: 10/14/2016. FINDINGS: Cardiomediastinal silhouette normal. Lungs and pleural spaces clear. Osseous structures normal. Upper abdomen normal. IMPRESSION: 1. No acute cardiopulmonary disease. Electronically signed by: Dennis Hawk M.D. 01/08/2017 7:09 PM Dictated Date/Time: 01/08/2017 7:09 PM
[2017-01-08 20:00] VITALS: BP 147/73; PULSE 138; TEMP 37; Ht 162.6 cm; Wt 96.2 kg
--- NOTE | 2017-01-08 20:05 | History and Physical ---
History & Physical Date & Time of Service: Jan 08, 2017 at 19:44 Chief Complaint: Pyelonephritis, Tachycardia Primary Care Physician: Dennis Khan M.D. History of Present Illness Source: patient This is a 41yo F with a PMH of recurrent UTIs, h/o kidney stones, Bipolar II disorder, fibromyalgia and other problems listed below who presents with worsening abdominal pain as of this morning. Patient states that she has chronic abdominal pain and it has not yet been determined what causes this pain. However, upon waking up today her abdominal pain was more severe in character, described as a sharp 7/10 pain, with radiation from her lower abdomen down to her bladder and bilateral flank. Worse with urination. Also endorses nausea and dysuria. Denies fever, chills, vomiting, diarrhea, constipation. Also endorses a sharp, 6/10 central chest pain that began today. Is unsure if pain began when she was at rest or exerting herself. Describes pain as intermittent, starting as a sharp pain and then changing to a duller pain. No radiation to jaw or arm. Has also noted her "heart racing" on and off today. No history of CAD, [place]. + Family history of heart disease. Says that pain is not similar to the pain she experiences with acid reflux. Denies lightheadedness, dyspnea, SOB, palpitations, LE swelling. Past Medical/Surgical History Medical Problems: (1) Anxiety Status: Chronic (2) Asthma Status: Chronic (3) Bipolar II disorder Status: Chronic (4) Fibromyalgia Status: Chronic (5) H/O migraine Status: Chronic (6) H/O renal calculi Status: Chronic (7) H/O urinary tract infection Status: Chronic (8) History of low back pain Status: Chronic (9) Hypothyroidism Status: Chronic Surgical Problems: (1) S/P cholecystectomy Status: Resolved Social History Problems: (1) Anxiety State Nos Status: Chronic (2) Asthma, Unspecified Status: Chronic (3) Migraine Unspecified W/O Intractable Migraine Status: Chronic (4) Pancreatitis Status: Chronic Family History Diabetes mellitus FH: cancer FH: heart disease FH: lung disease FHx: gallbladder disease Kidney disease or stones Social History Smoking Status: Never Smoker Drug Use: none Marital Status: single Housing status: lives with family Occupational Status: disabled Immunizations History of Influenza Vaccine: N/A Influenza Vaccine Date: Dec 14, 2010 History of Tetanus Vaccine?: Unknown Tetanus Immunization Date: Jul 25, 2010 History of Pneumococcal: No History of Hepatitis B Vaccine: No Multi-Drug Resistant Organisms History of MDRO: No Allergies Coded Allergies: BEE STING (Verified Allergy, Severe, ANAPHYLAXIS, 01/08/17) Morphine (Verified Adverse Reaction, Intermediate, HALLUCINATIONS, 01/08/17 ) Home Medications Scheduled Cyanocobalamin (Vitamin B-12), 1,000 MCG PO QAM Cyclobenzaprine Hcl (Flexeril), 10 MG PO HS Cyclobenzaprine Hcl (Flexeril), 5 MG PO QAM Dicyclomine HCl (Dicyclomine HCl), 20 MG PO BID Ferrous Sulfate (Ferrous Sulfate), 325 MG PO DAILY Fluticasone Propionate (Inhala (Flovent Diskus), 1 PUFF INH BID Gabapentin (Gabapentin), 600 MG PO TID Hydroxyzine Hcl (Atarax), 75 MG PO HS Lamotrigine (Lamotrigine), 200 MG PO QAM Levothyroxine Sodium (Levothyroxine Sodium), 50 MCG PO QAM Loratadine (Claritin), 10 MG PO QAM Meloxicam (Mobic), 15 MG PO DAILY Mupirocin 2% (Bactroban 2%), 1 APPLN EXT UD Norethin Acet & Estrad-Fe (Gildess Fe ), 1 TAB PO QAM Pantoprazole (Pantoprazole Sodium), 40 MG PO QAM Prazosin Hcl (Prazosin), 4 MG PO HS Topiramate (Topamax), 1 TAB PO BID Venlafaxine Hcl (Effexor Extended Rel), 150 MG PO QAM Scheduled PRN Albuterol Sulfate (Proair Respiclick), 2-4 PUFFS INH Q4H PRN for Cough/ Shortness Of Breath Epinephrine (Epipen), 0.3 MG IM UD PRN for ALLERGIC REACTION Fluticasone Propionate (Fluticasone Propionate), 2 SPRAYS JERRY QAM PRN for Nasal Congestion Rizatriptan Benzoate (Rizatriptan Benzoate), 10 MG PO for Pain Review of Systems Ten systems reviewed and negative except as noted in the HPI. Physical Exam Vital Signs Date Time Temp Pulse Resp B/P (MAP) Pulse Ox O2 Delivery O2 Flow Rate FiO2 01/08/17 19:01 115 16 180/98 97 01/08/17 18:54 115 16 180/98 97 Room Air 01/08/17 16:17 104 01/08/17 15:54 103 16 165/95 97 Room Air 01/08/17 15:07 106 16 155/100 96 Room Air 01/08/17 13:52 37.1 104 16 139/91 96 Room Air General Appearance: WD/WN, no apparent distress Head: normocephalic, atraumatic Eyes: normal inspection, PERRL, sclerae normal ENT: hearing grossly normal Neck: supple, no adenopathy, thyroid normal, trachea midline Respiratory/Chest: chest non-tender, lungs clear, normal breath sounds, no respiratory distress, no accessory muscle use Cardiovascular: no murmur, normal peripheral pulses, + tachycardia Abdomen/GI: normal bowel sounds, soft, no organomegaly, + tenderness (TTP in RLQ, LLQ, suprapubic ) Back: normal inspection, + left CVA tenderness, + right CVA tenderness Extremities/Musculoskelatal: normal inspection, no calf tenderness, normal capillary refill, no pedal edema Neurologic/Psych: alert, normal mood/affect, oriented x 3 Skin: normal color, warm/dry, no rash Diagnostics Laboratory Results Results Past 24 Hours Test 01/08/17 14:50 01/08/17 16:16 Range/Units White Blood Count 18.37 4.8-10.8 K/uL Red Blood Count 4.14 4.2-5.4 M/uL Hemoglobin 12.6 12.0-16.0 g/dL Hematocrit 36.9 37-47 % Mean Corpuscular Volume 89.1 80-100 fL Mean Corpuscular Hemoglobin 30.4 25-34 pg Mean Corpuscular Hemoglobin Concent 34.1 32-36 g/dl Platelet Count 372 130-400 K/uL Mean Platelet Volume 8.9 7.4-10.4 fL Neutrophils (%) (Auto) 85.6 % Lymphocytes (%) (Auto) 6.5 % Monocytes (%) (Auto) 6.3 % Eosinophils (%) (Auto) 0.7 % Basophils (%) (Auto) 0.2 % Neutrophils # (Auto) 15.72 1.4-6.5 K/uL Lymphocytes # (Auto) 1.20 1.2-3.4 K/uL Monocytes # (Auto) 1.16 0.11-0.59 K/uL Eosinophils # (Auto) 0.13 0-0.5 K/uL Basophils # (Auto) 0.04 0-0.2 K/uL RDW Standard Deviation 41.3 36.4-46.3 fL RDW Coefficient of Variation 12.9 11.5-14.5 % Immature Granulocyte % (Auto) 0.7 % Immature Granulocyte # (Auto) 0.12 0.00-0.02 K/uL Urine Color YELLOW Urine Appearance TURBID CLEAR Urine pH 5.5 4.5-7.5 Urine Specific [place] 1.019 1.000-1.030 Urine Protein 2+ NEG Urine Glucose (UA) NEG NEG Urine Ketones TRACE NEG Urine Occult Blood 3+ NEG Urine Nitrite NEG NEG Urine Bilirubin NEG NEG Urine Urobilinogen NEG NEG Urine Leukocyte Esterase LARGE NEG Urine WBC (Auto) >30 0-5 /hpf Urine RBC (Auto) >30 0-4 /hpf Urine Hyaline Casts (Auto) 1-5 0-5 /lpf Urine Epithelial Cells (Auto) 20-30 0-5 /lpf Urine Bacteria (Auto) 4+ NEG Sodium Level 140 136-145 mmol/L Potassium Level 3.7 3.5-5.1 mmol/L Chloride Level 110 98-107 mmol/L Carbon Dioxide Level 21 21-32 mmol/L Anion Gap 9.0 3-11 mmol/L Blood Urea Nitrogen 20 7-18 mg/dl Creatinine 0.91 0.60-1.20 mg/dl Est Creatinine Clear Calc Drug Dose 89.5 ml/min Estimated GFR () 89.6 Estimated GFR (Non- 77.3 BUN/Creatinine Ratio 21.9 10-20 Random Glucose 82 70-99 mg/dl Lactic Acid Level 1.1 0.4-2.0 mmol/L Calcium Level 9.2 8.5-10.1 mg/dl Total Bilirubin 0.5 0.2-1 mg/dl Direct Bilirubin 0.1 0-0.2 mg/dl Aspartate Amino Transf (AST/SGOT) 19 15-37 U/L Alanine Aminotransferase (ALT/SGPT) 26 12-78 U/L Alkaline Phosphatase 48 45-117 U/L Total Protein 7.8 6.4-8.2 gm/dl Albumin 3.7 3.4-5.0 gm/dl Lipase 116 73-393 U/L Troponin I < 0.015 0-0.045 ng/ml Microbiology Results 01/08/17 Blood Culture, Received Pending 01/08/17 Blood Culture, Received Pending 01/08/17 Urine Culture, Received Pending Diagnostic Radiology CT abd/pelvis: IMPRESSION: 1. No evidence of bowel obstruction. No evidence of free air 2. Normal appendix. No evidence of acute diverticulitis 3. Bilateral renal cortical scarring 4. Right-sided nephrolithiasis 5. Subtle inhomogeneous enhancement of the left renal cortex. Subtle perinephric and periureteral edema on the left with minimal fullness of the left renal collecting system. Likely diagnostic considerations include pyelonephritis, or a recently passed calculus. Clinical correlation in this regard is advocated CXR normal EKG Sinus tachycardia. Septal infarct, age undetermined (unconfirmed). New since last EKG in Apr 2016. Impression Assessment and Plan This is a 41yo F with a PMH of recurrent UTIs, h/o kidney stones, Bipolar II disorder, fibromyalgia and other problems listed below who presents with worsening abdominal pain that started this morning. Pyelonephritis: -Leukocytosis of 18.37 -UA with + occult blood, leuk esterase, wbc -CT abd/pelvis with subtle perinephric and periureteral edema on L with minimal fullness of the L renal collecting system. R sided nephrolithiasis -Is able to urinary fully, bladder scans Q shift to assess for retention -Started on Ceftriaxone, IVF -Pain management with Tylenol, Toradol -Consulted urology for further recs -Blood and urine cultures pending -Monitor lab work Sepsis: -Meets SIRs criteria with HR >90, leukocytosis of 18.37 -Urinary source of infection -Does not clinically appear septic -Lactic acid is unremarkable at 1.1 -Has maintained a normal-high pressure, so tachycardia likely 2/2 morfin -Continue ceftriaxone antibiotic coverage, IVF -Monitor lab work Chest pain: -Atypical with intermittent sharp-dull pattern -R/o ACS; risk factors include + family history, obesity -Initial troponin negative -EKG with sinus tachycardia and septal infarct, age undetermined (unconfirmed) -CXR-normal -Trend serial cardiac enzymes -Ordered echo -Given 324 aspirin -Fasting lipids pending -Repeat EKG in AM -Consult cardiology H/o Asthma: -Stable, no SOB -Continued home inhalers -Xopenex nebs PRN Fibromyalgia: -Continue home dose gabapentin Bipolar II, anxiety: -Stable -Continue home meds Hypothyroidism: -Continue synthroid DVT Ppx: Lovenox Code status: FULL PCP: Bill Dispo: Plan to return home once medically stable Attending Note: Patient is a 41 yr female with multiple comorbidities presents with history of worsening abd pain, dysuria, nausea and atypical chest pain. CT ABD is suggestive of possible pyelonephritis. EKG showed no acute changes and 1st troponin is negative. Physical Exam: Vitals signs as noted above General Appearance:Moderately built and nourished, no apparent distress Head: normocephalic, Atraumatic Eyes: normal inspection, EOMI, PERRL Neck: supple, Trachea midline Respiratory/Chest: decreased breath sounds, CTA Cardiovascular: S1, S2, Sinus tachycardia, No murmur Abdomen/GI:Soft, B/L LQ tender tender, Bowel sounds present Extremities/Musculoskelatal:normal inspection, no edema Neurologic/Psych:AAOX3, grossly no focal neurological deficits Skin:normal color,warm Assessment and Plan: Sepsis secondary pyelonephritis: IV fluids, Pain control, IV abx Atypical Chest Pain R/O ACS Trend cardiac enzymes Check ECHO Uncontrolled HTN: Labetalol PRN Check ECHO monitor I personally reviewed the record. Patient is interviewed and examined at bedside. Patient's care is coordinated with Shelbie Flynn PA-C. Please refer to the documentation above for details of patient's presentation and for discussion of other issues. Level of Care Telemetry Resuscitation Status FULL RESUSCITATION VTE Prophylaxis VTE Risk Assessment Done? Y/N: Yes Risk Level: Low Given or contraindicated: Enoxaparin (Lovenox)SQ
[2017-01-08] MEDS ORDERED: ALBUTEROL HFA INHALER 18 GM INH PRN (20:15)
[2017-01-08] MEDS ORDERED: FLUTICASONE PROPIONATE NA SPR 16 GM BTL NAE PRN (20:15)
[2017-01-08] MEDS ORDERED: LABETALOL HCL IV 5 MG/ML 20ML IV PRN (20:15)
[2017-01-08] MEDS ORDERED: EPINEPHRINE ADULT AUTO-INJECT 0.3 MG SYR IM PRN (20:15)
[2017-01-08] MEDS: FLUTICASONE HFA 110MCG INHALER INH SCH (21:00)
[2017-01-08 21:14] LABS: PROTHROMBIN TIME (PATIENT) 11.1 SECONDS (9.0-12.0)
[2017-01-08] MEDS: CYCLOBENZAPRINE HCL 10 MG TAB PO SCH (22:19)
[2017-01-08] MEDS: PRAZOSIN HCL 1 MG CAP PO SCH (22:20)
[2017-01-08] MEDS: hydrOXYzine HCL 25 MG TAB PO SCH (22:21)
[2017-01-08] MEDS: DICYCLOMINE HCL 20 MG TAB PO SCH (22:21)
[2017-01-08] MEDS: TOPIRAMATE 100 MG TAB PO SCH (22:22)
[2017-01-08] MEDS: GABAPENTIN 600 MG TAB PO SCH (22:22)
[2017-01-08] MEDS: SODIUM CHLORIDE 0.9% 1000ML 1,000 ML IV SCH (22:23)
[2017-01-08] MEDS: KETOROLAC TROMETHAMINE 30 MG/ML VIAL IV PRN (22:27)
[2017-01-08] MEDS ORDERED: ASPIRIN 81 MG CHEW ONE (22:31)
[2017-01-09] VITALS (10 sets, daily range): BP systolic 100–137; BP diastolic 65–79; PULSE 84–109; TEMP 36.5–37.6; O2SAT 95–97
[2017-01-09] MEDS: SODIUM CHLORIDE 0.9% 1000ML 1,000 ML IV SCH ×2 (05:06→15:34)
[2017-01-09 05:55] LABS: HEMATOCRIT 34.3 % (37-47); MEAN CELL VOLUME 88.4 fL (80-100); MEAN CORPUSCULAR HEMOGLOBIN 29.4 pg (25-34); MEAN CORPUSCULAR HGB CONC 33.2 g/dl (32-36); MEAN PLATELET VOLUME 8.9 fL (7.4-10.4); PLATELET COUNT 310 K/uL (130-400); RED BLOOD COUNT 3.88 M/uL (4.2-5.4); WHITE BLOOD COUNT 25.77 K/uL (4.8-10.8)
[2017-01-09 06:05] LABS: INR 1.1 (0.9-1.1); PROTHROMBIN TIME (PATIENT) 11.7 SECONDS (9.0-12.0)
[2017-01-09 06:24] LABS: BUN/CREATININE RATIO 15.8 (10-20); CALCIUM 8.4 mg/dl (8.5-10.1); CREATININE 0.86 mg/dl (0.60-1.20); POTASSIUM 3.3 mmol/L (3.5-5.1)
[2017-01-09 06:28] LABS: CHOLESTEROL/HDL RATIO 3.2
--- NOTE | 2017-01-09 07:54 | Progress Note ---
Subjective Date of Service: Jan 09, 2017. Subjective tried to see pt but she is off floor at a cardiac test. I do not see anything worrisome in the ct scan no surgical intervention needed. I suspect her urine culture will be contaminated just like the last 2 done at [facility] this year. She seems to be unable to give a clean voided urine She might benefit from a course of antibiotics. hard to know without good culture data. will see her this afternoon. Problem List Medical Problems: (1) Abdominal pain Status: Acute (2) Abdominal pain Status: Acute (3) Acute back pain Status: Acute (4) Asthmatic bronchitis Status: Acute (5) Chronic abdominal pain Status: Acute (6) Chronic back pain Status: Acute (7) Concussion Status: Acute (8) Conversion reaction Status: Acute (9) Fall Status: Acute (10) Mild closed head injury Status: Acute (11) Multiple complaints Status: Acute (12) Pleurisy Status: Acute (13) Pneumonia Status: Acute (14) Pyelonephritis Status: Acute (15) Rib pain Status: Acute (16) SOB (shortness of breath) Status: Acute (17) Sunburn Status: Acute (18) Thought disorder Status: Acute (19) Upper abdominal pain Status: Acute (20) UTI (urinary tract infection) Status: Acute Social History Problems: (1) Anxiety State Nos Status: Chronic (2) Asthma, Unspecified Status: Chronic (3) Depression Status: Acute (4) Hypertension Status: Acute (5) Migraine Unspecified W/O Intractable Migraine Status: Chronic (6) Pancreatitis Status: Chronic (7) UTI (urinary tract infection) Status: Acute Objective Vital Signs Date Time Temp Pulse Resp B/P (MAP) Pulse Ox O2 Delivery O2 Flow Rate FiO2 01/09/17 07:31 97 Room Air 01/09/17 07:31 96 01/09/17 07:21 36.8 92 18 100/67 (78) 96 Room Air 01/09/17 04:00 97 Room Air 01/09/17 04:00 95 01/09/17 03:37 36.5 84 18 110/71 (84) 97 Room Air 01/09/17 00:00 37.6 109 20 106/65 (79) 95 Room Air 01/09/17 00:00 97 Room Air 01/08/17 20:00 37.0 138 20 147/73 Room Air 01/08/17 19:01 115 16 180/98 97 01/08/17 18:54 115 16 180/98 97 Room Air 01/08/17 16:17 104 01/08/17 15:54 103 16 165/95 97 Room Air 01/08/17 15:07 106 16 155/100 96 Room Air 01/08/17 13:52 37.1 104 16 139/91 96 Room Air Laboratory Results Last 24 Hours Test 01/08/17 14:50 01/08/17 16:16 01/08/17 20:18 01/09/17 05:11 White Blood Count 18.37 K/uL 25.77 K/uL Red Blood Count 4.14 M/uL 3.88 M/uL Hemoglobin 12.6 g/dL 11.4 g/dL Hematocrit 36.9 % 34.3 % Mean Corpuscular Volume 89.1 fL 88.4 fL Mean Corpuscular Hemoglobin 30.4 pg 29.4 pg Mean Corpuscular Hemoglobin Concent 34.1 g/dl 33.2 g/dl Platelet Count 372 K/uL 310 K/uL Mean Platelet Volume 8.9 fL 8.9 fL Neutrophils (%) (Auto) 85.6 % Lymphocytes (%) (Auto) 6.5 % Monocytes (%) (Auto) 6.3 % Eosinophils (%) (Auto) 0.7 % Basophils (%) (Auto) 0.2 % Neutrophils # (Auto) 15.72 K/uL Lymphocytes # (Auto) 1.20 K/uL Monocytes # (Auto) 1.16 K/uL Eosinophils # (Auto) 0.13 K/uL Basophils # (Auto) 0.04 K/uL RDW Standard Deviation 41.3 fL 41.8 fL RDW Coefficient of Variation 12.9 % 13.1 % Immature Granulocyte % (Auto) 0.7 % Immature Granulocyte # (Auto) 0.12 K/uL Urine Color YELLOW Urine Appearance TURBID Urine pH 5.5 Urine Specific [place] 1.019 Urine Protein 2+ Urine Glucose (UA) NEG Urine Ketones TRACE Urine Occult Blood 3+ Urine Nitrite NEG Urine Bilirubin NEG Urine Urobilinogen NEG Urine Leukocyte Esterase LARGE Urine WBC (Auto) >30 /hpf Urine RBC (Auto) >30 /hpf Urine Hyaline Casts (Auto) 1-5 /lpf Urine Epithelial Cells (Auto) 20-30 /lpf Urine Bacteria (Auto) 4+ Sodium Level 140 mmol/L 142 mmol/L Potassium Level 3.7 mmol/L 3.3 mmol/L Chloride Level 110 mmol/L 112 mmol/L Carbon Dioxide Level 21 mmol/L 19 mmol/L Anion Gap 9.0 mmol/L 11.0 mmol/L Blood Urea Nitrogen 20 mg/dl 14 mg/dl Creatinine 0.91 mg/dl 0.86 mg/dl Est Creatinine Clear Calc Drug Dose 89.5 ml/min 94.8 ml/min Estimated GFR () 89.6 95.9 Estimated GFR (Non- 77.3 82.7 BUN/Creatinine Ratio 21.9 15.8 Random Glucose 82 mg/dl 136 mg/dl Lactic Acid Level 1.1 mmol/L Calcium Level 9.2 mg/dl 8.4 mg/dl Total Bilirubin 0.5 mg/dl Direct Bilirubin 0.1 mg/dl Aspartate Amino Transf (AST/SGOT) 19 U/L Alanine Aminotransferase (ALT/SGPT) 26 U/L Alkaline Phosphatase 48 U/L Total Protein 7.8 gm/dl Albumin 3.7 gm/dl Lipase 116 U/L Troponin I < 0.015 ng/ml Prothrombin Time 11.1 SECONDS 11.7 SECONDS Prothromb Time International Ratio 1.0 1.1 Triglycerides Level 123 mg/dl Cholesterol Level 135 mg/dl HDL Cholesterol 42 mg/dl LDL Cholesterol, Calculated 68 mg/dl VLDL Cholesterol, Calculated 25 mg/dl Cholesterol/HDL Ratio 3.2
[2017-01-09] MEDS ORDERED: PERFLUTREN LIPID MICROSPHERE (DEFINITY) IV ONE (08:02)
[2017-01-09] MEDS: LEVOTHYROXINE 50 MCG TAB PO SCH (08:52)
[2017-01-09] MEDS: CYANOCOBALAMIN 500 MCG TAB (VIT B-12) PO SCH (08:55)
[2017-01-09] MEDS: ASPIRIN 81 MG ECTAB PO SCH (08:56)
[2017-01-09] MEDS: TOPIRAMATE 100 MG TAB PO SCH ×2 (08:56→21:27)
[2017-01-09] MEDS: DICYCLOMINE HCL 20 MG TAB PO SCH ×2 (08:56→21:29)
[2017-01-09] MEDS: VENLAFAXINE HCL XR 150 MG CAPXR PO SCH (08:56)
[2017-01-09] MEDS: PANTOprazole SOD 40 MG TAB PO SCH (08:57)
[2017-01-09] MEDS: FERROUS SULFATE 325 MG TAB PO SCH (08:57)
[2017-01-09] MEDS: LORATADINE 10 MG TAB PO SCH (08:57)
[2017-01-09] MEDS: GABAPENTIN 600 MG TAB PO SCH ×3 (08:57→21:26)
[2017-01-09] MEDS: CYCLOBENZAPRINE HCL 10 MG TAB PO SCH ×2 (08:57→21:29)
[2017-01-09] MEDS: ENOXAPARIN 40 MG/0.4 ML SYR SC SCH (08:58)
[2017-01-09] MEDS: FLUTICASONE HFA 110MCG INHALER INH SCH ×2 (10:07→21:25)
--- NOTE | 2017-01-09 10:41 | ECHOCARDIOGRAM REPORT ---
*NOTICE TO RECEIVING REPUBLICAN AGENCY This information is strictly Confidential and protected under [place] law. [place] law prohibits you from making any further disclosure of this information unless further disclosure is expressly permitted by the written consent of the person to whom it pertains or is authorized by law. A general authorization for the release of medical or other information is not sufficient for this purpose. Hospital accepts no responsibility if the information is made available to any other person, INCLUDING THE PATIENT. Interpretation Summary * Name: DONALD RAMIREZ Study Date: 01/09/2017 07:22 AM BP: 110/71 mmHg * Patient Location: [facility]\S\N280\S\1 HR: 76 * : 1975 (M/d/yyyy) Gender: Female Height: 64 in * Age: 41 yrs Ethnicity: [place] Weight: 211 lb * Ordering Physician: Shelbie Flynn * Referring Physician: Self, Referred * Performed By: Chelsea John RCS * * Reason For Study: CHEST PAIN * BSA: 2.0 m2 * The study was technically adequate. * Compared to prior study, changes are noted. * -- Conclusions -- * There is a large 1.0 x 0.8cm echodensity attached to the left coronary cusp of the aortic valve. * Differential diagnosis includes, but not limited to, vegetation, thrombus, tumor, or focal calcification. * There is no significant aortic regurgitation. * Aortic stenosis is absent. * The left ventricular wall motion is normal. * Ejection Fraction = >70 %. Procedure Details * A complete two-dimensional transthoracic echocardiogram was performed (2D, M-mode, Doppler and color flow Doppler). * A contrast injection of Definity was performed to improve assessment of LV function. * Contrast was injected into an intravenous site in the right arm. * One vial of Definity ultrasound contrast was diluted in normal saline to a total volume of 10 ml. A total of '3' ml of solution was administered during imaging. * Lot # [id number] of Definity utilized for procedure. * Expiration date JAN 30. * The attending nurse who injected the contrast agent was MARINA ACUNA CPL, RN. Left Ventricle * The left ventricle is normal in size. * There is normal left ventricular wall thickness. * Ejection Fraction = >70 %. * The left ventricular wall motion is normal. Right Ventricle * The right ventricle is normal size. * The right ventricular systolic function is normal as assessed by tricuspid annular plane systolic excursion (TAPSE) (normal >1.5 cm). Atria * The left atrial size is normal. * Right atrial size is normal. * There is no evidence of atrial septal defect, but resolution does not allow assessment for a patent foramen ovale. Mitral Valve * The mitral valve is grossly normal. * There is no mitral valve stenosis. * Significant mitral regurgitation is absent. Tricuspid Valve * The tricuspid valve is not well visualized. * There is no tricuspid stenosis. * Significant tricuspid regurgitation is absent. Aortic Valve * The aortic valve is trileaflet. * There is a large 1.0 x 0.8cm echodensity attached to the left coronary cusp of the aortic valve. Differential diagnosis includes, but not limited to, vegetation, thrombus, tumor, or focal calcification. * Aortic stenosis is absent. * There is no significant aortic regurgitation. Pulmonic Valve * The pulmonary valve is not well seen, but the Doppler examination is normal without significant regurgitation or stenosis. Great Vessels * The aortic root and proximal ascending aorta are normal sized. Pericardium/Pleural * There is no pericardial effusion. Great Vessels * Normal inferior vena cava diameter and respiratory variation suggests normal central venous pressure. Left Ventricular Diastolic Function * Pulse wave TDI of the anterior and posterior mitral annulas demonstrates normal LV relaxation MMode 2D Measurements and Calculations IVSd 1.5 cm IVSs 1.9 cm LVIDd 4.3 cm LVIDs 3.4 cm LVPWd 1.5 cm LVPWs 1.5 cm IVS/LVPW 0.99 FS 21.8 % EDV(Teich) 84.0 ml ESV(Teich) 46.7 ml EF(Teich) 44.4 % EDV(cubed) 80.7 ml ESV(cubed) 38.6 ml EF(cubed) 52.2 % % IVS thick 28.8 % % LVPW thick 3.8 % LV mass(C)d 250.4 grams LV mass(C)dI 125.1 grams/m\S\2 LV mass(C)s 227.9 grams LV mass(C)sI 113.9 grams/m\S\2 SV(Teich) 37.3 ml SI(Teich) 18.7 ml/m\S\2 SV(cubed) 42.1 ml SI(cubed) 21.1 ml/m\S\2 Ao root diam 2.4 cm Ao root area 4.7 cm\S\2 LA dimension 3.5 cm LA/Ao 1.4 LVOT diam 2.0 cm LVOT area 3.2 cm\S\2 LVAd ap4 32.2 cm\S\2 LVLd ap4 8.3 cm EDV(MOD-sp4) 100.4 ml EDV(sp4-el) 105.8 ml LVAs ap4 20.5 cm\S\2 LVLs ap4 6.9 cm ESV(MOD-sp4) 51.3 ml ESV(sp4-el) 51.9 ml EF(MOD-sp4) 48.9 % EF(sp4-el) 51.0 % SV(MOD-sp4) 49.1 ml SI(MOD-sp4) 24.5 ml/m\S\2 SV(sp4-el) 53.9 ml SI(sp4-el) 26.9 ml/m\S\2 Doppler Measurements and Calculations MV E max radha 85.7 cm/sec MV A max radha 70.1 cm/sec MV E/A 1.2 MV P1/2t max radha 92.3 cm/sec MV P1/2t 77.4 msec MVA(P1/2t) 2.8 cm\S\2 MV dec slope 349.4 cm/sec\S\2 MV dec time 0.17 sec Ao V2 max 156.5 cm/sec Ao max PG 9.8 mmHg Ao max PG (full) 4.3 mmHg CEFERINO(V,A) 2.4 cm\S\2 CEFERINO(V,D) 2.4 cm\S\2 LV V1 max PG 5.5 mmHg LV V1 max 117.4 cm/sec PA V2 max 110.4 cm/sec PA max PG 4.9 mmHg
[2017-01-09] MEDS ORDERED: POTASSIUM CHLORIDE 20 MEQ TABCR PO ONE (11:15)
--- NOTE | 2017-01-09 12:14 | Progress Note ---
Progress Note Date of Service Jan 09, 2017. Progress Note ID Consult Dictated #[id number] A/P: 1. GNR Sepsis 2. Pyelonephritis/E. coli uti 3. AV veg -Continue abx, if clinical worsening could broaden to Imipenem pending final cultures -Will need repeat blood cultures -Await EVELYNE findings -Will follow, thank you
--- NOTE | 2017-01-09 12:18 | CARDIOLOGY CONSULTATION ---
DATE OF CONSULTATION: 01/09/2017 REFERRING PHYSICIAN: Dr. Jose Escalera. CHIEF COMPLAINT ON ADMISSION: Tachycardia. HISTORY OF PRESENT ILLNESS: The patient is a 41-year-old female with a history of recurrent UTIs and nephrolithiasis, presented to the ER with worsening abdominal discomfort, tachycardia, and possible low-grade fever. According chart review, she has a history of chronic abdominal pain. Currently, complains of back pain involving her bilateral flanks. Also, notes painful urination. Reports dark colored urine. Low grade fever noted. The patient reported episode of sharp chest discomfort in the Emergency Department. Discomfort was short lived, lasting a few seconds. It has been intermittent over the past 24 hours. Denies orthopnea or PND. No chest heaviness or tightness. Also, reports episodes of palpitations, described as "heart racing." These have also been intermittent over the past 48 hours. The patient's initial urine culture is positive for E. coli. Her blood culture is also positive x1. Resting 2D transthoracic echo demonstrates possible aortic valve vegetation involving the left aortic valve coronary cusp. REVIEW OF SYSTEMS: The pertinent positives noted above. A comprehensive 10-system review is otherwise negative. PAST MEDICAL HISTORY: 1. Anxiety disorder. 2. Bipolar disorder. 3. Asthma. 4. Fibromyalgia. 5. Migraine headache. 6. Nephrolithiasis. 7. Recurrent UTI. 8. Chronic low back pain. 9. Chronic abdominal pain. 10. Hypothyroidism. PAST SURGICAL HISTORY: Cholecystectomy. SOCIAL HISTORY: Denies tobacco or alcohol use. FAMILY HISTORY: Negative for premature CAD or sudden cardiac . Her father had coronary artery disease in his 60s. ALLERGIES: BEE STINGS AND MORPHINE. HOME MEDICATIONS: 1. Flexeril 10 mg at bedtime and 5 mg in the a.m. 2. Dicyclomine 20 mg twice daily. 3. Ferrous sulfate 325 mg daily. 4. Flovent Diskus twice daily. 5. Gabapentin 600 mg t.i.d. 6. Hydroxyzine 75 mg at bedtime. 7. Lamotrigine 200 mg daily. 8. Synthroid 50 mcg daily. 9. Claritin 10 mg daily. 10. Meloxicam 15 mg daily. 11. Protonix 40 mg daily. 12. Prazosin 4 mg at bedtime. 13. Topamax 1 tab twice daily. 14. Effexor 150 mg daily. 15. Albuterol as needed. 16. EpiPen as needed. 17. Flonase as needed. 18. Rizatriptan benzoate as needed. ECG ON ADMISSION: Sinus rhythm, premature atrial complex, and possible age indeterminate septal infarct. LABORATORY DATA: Troponin negative x1. Sodium 142, potassium 3.3, chloride 112, CO2 is 19, BUN is 14, and creatinine 0.86. Triglycerides 123, total cholesterol 135, LDL 68, and HDL 42. White blood cell count 25.77, hemoglobin is 11.4, and platelet count is 310. INR is 1.1. Blood culture positive for gram negative bacilli. Urine culture positive for E. coli. CT of the abdomen and pelvis: Normal appendix, no diverticulitis, bilateral cortical renal scarring, right-sided nephrolithiasis, enhancement of left renal cortex, subtle perinephric and periureteral edema on the left with minimal fullness in the left renal collecting system. TELEMETRY: Sinus rhythm, sinus tachycardia. PHYSICAL EXAMINATION: VITAL SIGNS: T-max 37.6 degrees centigrade, current temperature 36.8 degrees centigrade, pulse is 85 beats per minute and regular, respiratory rate is 18 breaths per minute, blood pressure 100/67 and SaO2 is 97% on room air. GENERAL: NAD, obese, awake, alert and oriented x3. HEENT: Mucous membranes are moist. No scleral icterus. Conjunctivae pink. NECK: Supple without JVD. No HJR and no carotid bruit. HEART: Regular with a normal S1 and S2. There is no murmur, rub, or gallop appreciated. LUNGS: Clear without rales, rhonchi or wheeze. ABDOMEN: Soft and nontender. No rebound or guarding. Normal bowel sounds. EXTREMITIES: Warm and dry. There is no clubbing, cyanosis, or edema. NEUROLOGIC: Demonstrates no focal motor deficit. FINAL IMPRESSION: 1. A 41-year-old female admitted with fevers, tachycardia, abdominal discomfort with evidence of Escherichia coli urosepsis and gram negative bacteremia. 2. 2D echo evidence of aortic valve endocarditis, although endocarditis due E. Coli is rare. 3. Tachycardia related to sepsis. 4. Prolonged QT in the presence of hypokalemia. 5. Atypical chest discomfort. PLAN AND RECOMMENDATIONS: Discussion with the patient regarding her echocardiographic results suggesting endocarditis. Recommend transesophageal echocardiography. The risks, benefits and alternatives to this procedure were discussed at length. The patient is agreeable. She has eaten her a.m. meal. Procedure will be planned for tomorrow morning with anesthesia consult for moderate sedation. Infectious disease consultation has been placed. I also discussed the case at length with the hospitalist regarding patient's current antibiotics. Antibiotic therapy will be adjusted by infectious disease specialist with possible addition of aminoglycoside. I would avoid fluoroquinolones given the presence of prolonged QT at this time. 40 mEq of oral potassium will be given x1 now. Potassium will be added to the patient's IV fluid with a repeat basic metabolic panel later today. Continue telemetry monitoring during hospitalization. At this point, it appears that the patient will require 6 weeks of intravenous antibiotics. Further recommendations pending review of the transesophageal echo. Thank you for allowing me to take part in the care of your patient. TWYLA
--- NOTE | 2017-01-09 12:28 | INFECT. DISEASE CONSULTATION ---
DATE OF CONSULTATION: 01/09/2017 REQUESTING PHYSICIAN: Dr. Escalera. HISTORY OF PRESENT ILLNESS: This is a 41-year-old female who has a history of recurrent urinary tract infections. However, looking back at her micro, she has had multiple urine cultures with contaminated specimen. She also has a history of renal stones, which she has undergone lithotripsy and stenting in the past. Her stent had subsequently been removed. She was brought to the hospital with worsening abdominal pain and dysuria. She states her abdominal pain is improved. She continues with dysuria. A urine culture was obtained at the time of admission after her UA showed greater than 30 WBCs and 4+ bacteria. Her urine culture is growing E. coli. Blood cultures are also obtained in the ER and one set is growing gram negative rods. She did have a CAT scan in the Emergency Room, which showed a 2.5-mm edema, which could be consistent with pyelonephritis. She did have a significantly elevated white blood cell count of 18, which was increased to 25.7. As part of her workup, she was placed on antibiotics and an echo was ordered. She had a transthoracic echo done earlier today, which showed a 1 cm x 0.8 cm density on the aortic valve. She states she is due to have a EVELYNE tomorrow. She remains on Rocephin and is tolerating this well. Her T-max is 37.6. She is currently afebrile. She denies any chest pain, cough or shortness of breath. She does have abdominal pain, which is mildly better. She denies any nausea or vomiting. She has no diarrhea. She is tolerating antibiotics. She has some dysuria. Review of her old micro again reveals multiple urine cultures with contaminated specimen in the past, she did in January of 2016 and had a gamma strep from the urine, which was not enterococcus and no further workup was done. It is unclear if she was treated at that time. All remaining review of systems is reviewed and unremarkable. PAST MEDICAL HISTORY: She has a medical history significant for anxiety, asthma, bipolar disorder, fibromyalgia, migraine headaches, renal stones with lithotripsy and stenting, recurrent UTI, low back pain, and hypothyroidism. PAST SURGICAL HISTORY: Significant for cholecystectomy and lithotripsy. FAMILY HISTORY: Noncontributory. SOCIAL HISTORY: Insignificant for tobacco use, alcohol use or drug use. ALLERGIES: INCLUDE MORPHINE. MEDICATIONS: Include Rocephin, Lovenox, aspirin, vitamin B12, Flexeril, Lamictal, Claritin, Protonix, Effexor, iron, Synthroid, Bentyl, Vistaril, Topamax, Flovent, Flonase, labetalol, Toradol, Xopenex, and Tylenol. PHYSICAL EXAMINATION: VITAL SIGNS: She is currently afebrile, pulse 103, respiratory rate 18, blood pressure 121/79, and oxygen saturation is 97% on room air. GENERAL: She is awake, alert and oriented x3. She is in no acute distress. HEENT: Mucous membranes are moist. Extraocular muscles are intact. HEART: Regular. LUNGS: Clear bilaterally. ABDOMEN: Soft and nondistended. EXTREMITIES: There is no edema. SKIN: Without rash. LABORATORY STUDIES: CBC today reveals a white blood cell count of 25.7, hemoglobin 11.4, and platelets are 310. Chemistry panel reveals a sodium of 142, potassium 3.3, chloride 112, bicarbonate 19, BUN 14, creatinine 0.6, and glucose is 136. LFTs are within normal limits. Urinalysis again has greater than 30 WBCs and 4+ bacteria. Urine cultures on the are growing E. coli. Blood cultures on the are growing gram negative rods. She states she did have repeat blood cultures this morning. Echo findings are as above. Radiology is as above. ASSESSMENT AND PLAN: Gram negative septicemia with an Escherichia coli urinary tract infection. This would be unlikely cause of endocarditis; however, not impossible. I will await the findings of EVELYNE tomorrow. She should remain on empiric antibiotics should she have any clinical worsening. Certainly, she could be broadened from Rocephin to imipenem pending the results of final sensitivities from her cultures. Repeat blood culture should be obtained. I will follow along with you. Thank you for this consultation. TWYLA
[2017-01-09] MEDS: KETOROLAC TROMETHAMINE 30 MG/ML VIAL IV PRN ×2 (14:43→21:42)
[2017-01-09] MEDS: RIZATRIPTAN BENZOATE 10 MG TAB PO PRN (15:40)
[2017-01-09] MEDS ORDERED: CEFTRIAXONE SOD INJ 1 GM in DEXTROSE 5% ADD-VANTAGE 50ML 50 ML IV SCH (16:00)
--- NOTE | 2017-01-09 16:29 | Progress Note ---
Internal Med Progress Note Date of Service: Jan 09, 2017. Provider Documentation: SUBJECTIVE: Seen and examined at bedside States having intermittent chest pain and still has some abdominal pain Denies SOB No new complaints Planned for EVELYNE tomorrow OBJECTIVE: Vital Signs-as noted below General Appearance:Moderately built and nourished, no apparent distress Head: normocephalic, Atraumatic Eyes: normal inspection, EOMI, PERRL Neck: supple, Trachea midline Respiratory/Chest: decreased breath sounds, CTA Cardiovascular: S1, S2, Sinus tachycardia, No murmur Abdomen/GI:Soft, B/L LQ tender tender, Bowel sounds present Extremities/Musculoskelatal:normal inspection, no edema Neurologic/Psych:AAOX3, grossly no focal neurological deficits Skin:normal color,warm Lab data as noted below. ASSESSMENT & PLAN: Patient is a 41yr female with a PMH of recurrent UTIs, h/o kidney stones, Bipolar II disorder, fibromyalgia and other problems listed below who presents with worsening abdominal pain for one day duration Sepsis secondary to Pyelonephritis,Endocarditis: Leukocytosis persistent CT abd/pelvis with subtle perinephric and periureteral edema on L with minimal fullness of the L renal collecting system. R sided nephrolithiasis ECHO showed echodensity attached to the left coronary cusp of the aortic valve Planned for EVELYNE tomorrow Continue Ceftriaxone for now Day #2 Pain control Blood culture:gram negative bacilli Urine culture: E.coli Appreciate ID/Cardiology help Atypical Chest pain: Likely secondary to above LV wall motion normal on ECHO Cardiac enzymes negative CXR-normal Lipid panel:wnl Appreciate cardiology Input QT prolongation in setting of Hypokalemia: Avoid QT prolonging meds Replace potassium, monitor H/o Asthma: Stable, no SOB Continued home inhalers Xopenex nebs PRN Fibromyalgia: Continue home dose gabapentin Bipolar II, anxiety: Stable Continue home meds Hypothyroidism: Continue synthroid DVT Ppx: Lovenox Code status: FULL PCP: Bill Dispo: Plan to return home once medically stable PROCEDURES: ECHO: * There is a large 1.0 x 0.8cm echodensity attached to the left coronary cusp of the aortic valve. * Differential diagnosis includes, but not limited to, vegetation, thrombus, tumor, or focal calcification. * There is no significant aortic regurgitation. * Aortic stenosis is absent. * The left ventricular wall motion is normal. * Ejection Fraction = >70 %. Vital Signs: Date Time Temp Pulse Resp B/P (MAP) Pulse Ox O2 Delivery O2 Flow Rate FiO2 01/09/17 16:00 Room Air 01/09/17 15:34 36.8 101 20 137/73 (94) 96 Room Air 01/09/17 12:00 97 Room Air 01/09/17 11:28 36.9 103 18 121/79 (93) 97 Room Air 01/09/17 07:31 97 Room Air 01/09/17 07:31 96 01/09/17 07:21 36.8 92 18 100/67 (78) 96 Room Air 01/09/17 04:00 97 Room Air 01/09/17 04:00 95 01/09/17 03:37 36.5 84 18 110/71 (84) 97 Room Air 01/09/17 00:00 37.6 109 20 106/65 (79) 95 Room Air 01/09/17 00:00 97 Room Air 01/08/17 20:00 37.0 138 20 147/73 Room Air 01/08/17 19:01 115 16 180/98 97 01/08/17 18:54 115 16 180/98 97 Room Air Lab Results: Results Past 24 Hours Test 01/08/17 20:18 01/09/17 05:11 01/09/17 11:43 01/09/17 16:19 Range/Units Prothrombin Time 11.1 11.7 9.0-12.0 SECONDS Prothromb Time International Ratio 1.0 1.1 0.9-1.1 White Blood Count 25.77 4.8-10.8 K/uL Red Blood Count 3.88 4.2-5.4 M/uL Hemoglobin 11.4 12.0-16.0 g/dL Hematocrit 34.3 37-47 % Mean Corpuscular Volume 88.4 80-100 fL Mean Corpuscular Hemoglobin 29.4 25-34 pg Mean Corpuscular Hemoglobin Concent 33.2 32-36 g/dl RDW Standard Deviation 41.8 36.4-46.3 fL RDW Coefficient of Variation 13.1 11.5-14.5 % Platelet Count 310 130-400 K/uL Mean Platelet Volume 8.9 7.4-10.4 fL Sodium Level 142 136-145 mmol/L Potassium Level 3.3 3.5-5.1 mmol/L Chloride Level 112 98-107 mmol/L Carbon Dioxide Level 19 21-32 mmol/L Anion Gap 11.0 3-11 mmol/L Blood Urea Nitrogen 14 7-18 mg/dl Creatinine 0.86 0.60-1.20 mg/dl Est Creatinine Clear Calc Drug Dose 94.8 ml/min Estimated GFR () 95.9 Estimated GFR (Non- 82.7 BUN/Creatinine Ratio 15.8 10-20 Random Glucose 136 70-99 mg/dl Calcium Level 8.4 8.5-10.1 mg/dl Triglycerides Level 123 0-150 mg/dl Cholesterol Level 135 0-200 mg/dl HDL Cholesterol 42 mg/dl LDL Cholesterol, Calculated 68 mg/dl VLDL Cholesterol, Calculated 25 mg/dl Cholesterol/HDL Ratio 3.2 Troponin I < 0.015 0-0.045 ng/ml Microbiology Results 01/08/17 Blood Culture - Preliminary, Resulted Gram Negative Bacilli 01/08/17 Blood Culture, Received Pending
[2017-01-09] MEDS: POTASSIUM CHLORIDE INJ 40 MEQ in SODIUM CHLORIDE 0.9% 1000ML 1,000 ML IV SCH (16:40)
[2017-01-09] MEDS ORDERED: CEFTRIAXONE SOD INJ 1 GM in DEXTROSE 5% ADD-VANTAGE 50ML 50 ML IV ONE (17:00)
[2017-01-09 17:15] LABS: BUN/CREATININE RATIO 16.4 (10-20); CALCIUM 8.8 mg/dl (8.5-10.1); CREATININE 0.81 mg/dl (0.60-1.20); MAGNESIUM 2.1 mg/dl (1.8-2.4); POTASSIUM 3.5 mmol/L (3.5-5.1)
[2017-01-09] MEDS ORDERED: PROMETHAZINE HCL INJ 12.5 MG in SODIUM CHLORIDE 0.9% 50ML 50 ML IV PRN (17:30)
--- NOTE | 2017-01-09 17:49 | Urology Consultation ---
History General Date of Service: Jan 09, 2017. Chief Complaint: left pyelonephritis Primary Care Physician: Dennis Khan M.D. Pt seen a urologist before?: Yes If yes, why?: kidney stones History of Present Illness I am asked by Dr Bah to evaluate and treat patient for left pyelonephritis. She has been feeling unwell for 3 days. She felt tired for 3 days and she felt her heart race at times. The yesterday she developed pain with urination. She says it is pain and NOT burning with urination. She also has some left flank pain. SHe has a ct with inflammatory changes around left kidney and upper ureter. She has a normal right kidney excepting a small non obstructing lower pole stone. SHe is with a high white count moderately severe fever, and tachycardia. Her urine and blood are growing e coli. She is on ceftriaxone. She is not hypotensive. She is eating well. Imaging Imaging: CT Laboratory Results Past 24 Hours Test 01/08/17 20:18 01/09/17 05:11 01/09/17 11:43 01/09/17 16:38 Range/Units Prothrombin Time 11.1 11.7 9.0-12.0 SECONDS Prothromb Time International Ratio 1.0 1.1 0.9-1.1 White Blood Count 25.77 4.8-10.8 K/uL Red Blood Count 3.88 4.2-5.4 M/uL Hemoglobin 11.4 12.0-16.0 g/dL Hematocrit 34.3 37-47 % Mean Corpuscular Volume 88.4 80-100 fL Mean Corpuscular Hemoglobin 29.4 25-34 pg Mean Corpuscular Hemoglobin Concent 33.2 32-36 g/dl RDW Standard Deviation 41.8 36.4-46.3 fL RDW Coefficient of Variation 13.1 11.5-14.5 % Platelet Count 310 130-400 K/uL Mean Platelet Volume 8.9 7.4-10.4 fL Sodium Level 142 142 136-145 mmol/L Potassium Level 3.3 3.5 3.5-5.1 mmol/L Chloride Level 112 113 98-107 mmol/L Carbon Dioxide Level 19 19 21-32 mmol/L Anion Gap 11.0 10.0 3-11 mmol/L Blood Urea Nitrogen 14 13 7-18 mg/dl Creatinine 0.86 0.81 0.60-1.20 mg/dl Est Creatinine Clear Calc Drug Dose 94.8 101.1 ml/min Estimated GFR () 95.9 103.1 Estimated GFR (Non- 82.7 89.0 BUN/Creatinine Ratio 15.8 16.4 10-20 Random Glucose 136 99 70-99 mg/dl Calcium Level 8.4 8.8 8.5-10.1 mg/dl Triglycerides Level 123 0-150 mg/dl Cholesterol Level 135 0-200 mg/dl HDL Cholesterol 42 mg/dl LDL Cholesterol, Calculated 68 mg/dl VLDL Cholesterol, Calculated 25 mg/dl Cholesterol/HDL Ratio 3.2 Troponin I < 0.015 0-0.045 ng/ml Magnesium Level 2.1 1.8-2.4 mg/dl Labs were reviewed and are within normal limits unless listed below. Labs are available in the chart and at [facility] Problem List Medical Problems: (1) Abdominal pain Status: Acute (2) Abdominal pain Status: Acute (3) Acute back pain Status: Acute (4) Asthmatic bronchitis Status: Acute (5) Chronic abdominal pain Status: Acute (6) Chronic back pain Status: Acute (7) Concussion Status: Acute (8) Conversion reaction Status: Acute (9) Fall Status: Acute (10) Mild closed head injury Status: Acute (11) Multiple complaints Status: Acute (12) Pleurisy Status: Acute (13) Pneumonia Status: Acute (14) Pyelonephritis Status: Acute (15) Rib pain Status: Acute (16) SOB (shortness of breath) Status: Acute (17) Sunburn Status: Acute (18) Thought disorder Status: Acute (19) Upper abdominal pain Status: Acute (20) UTI (urinary tract infection) Status: Acute Social History Problems: (1) Anxiety State Nos Status: Chronic (2) Asthma, Unspecified Status: Chronic (3) Depression Status: Acute (4) Hypertension Status: Acute (5) Migraine Unspecified W/O Intractable Migraine Status: Chronic (6) Pancreatitis Status: Chronic (7) UTI (urinary tract infection) Status: Acute Past History anxiety, asthma, bipolar disorder, fibromyalgia, hypothyroidism, kidney stones, migraines, urinary tract infection Past Surgical History: cholecystectomy, other (ureteral stone surgery Feb 2016 [facility] left side ) Family History Diabetes mellitus FH: cancer FH: heart disease FH: lung disease FHx: gallbladder disease Kidney disease or stones Social History Hx Tobacco Use In Past Year?: No Smoking: non-smoker Alcohol: never Drug use: none Marital status: single Housing status: lives with family Occupation status: disabled Immunizations History of Influenza Vaccine: N/A Influenza Vaccine Date: Dec 14, 2010 History of Tetanus Vaccine?: Unknown Tetanus Immunization Date: Jul 25, 2010 History of Pneumococcal: No History of Hepatitis B Vaccine: No History of MDRO No Allergies Coded Allergies: BEE STING (Verified Allergy, Severe, ANAPHYLAXIS, 01/08/17) Morphine (Verified Adverse Reaction, Intermediate, HALLUCINATIONS, 01/08/17 ) Medications Home Medications: Home Meds and Scripts Medications Dose Route/Sig Max Daily Dose Days Date Category Dose Instructions Topamax (Topiramate) 100 Mg Tab 1 Tab PO BID 30 01/08/17 Reported Atarax (Hydroxyzine Hcl) 25 Mg Tab 75 Mg PO HS 01/08/17 Reported Rizatriptan Benzoate 10 Mg Tab 10 Mg PO PRN 01/08/17 Reported ONCE TAKEN FOR MIGRAINE REPEAT EVERY 2HRS UP TO 2X. UP TO 3 TAB IN 24HRS Bactroban 2% (Mupirocin) 30 Gm Cr 1 Appln EXT UD 01/08/17 Reported Gildess Fe 1.5/30 (Norethin Acet & Estrad-Fe) 1 Tab Tab 1 Tab PO QAM 10/08/16 Reported Mobic (Meloxicam) 7.5 Mg Tab 15 Mg PO DAILY 10/08/16 Reported Ferrous Sulfate 325 Mg Tab 325 Mg PO DAILY 08/21/16 Reported Proair Respiclick (Albuterol Sulfate) 108 Mcg/Act Aer 2-4 Puffs INH Q4H PRN 08/21/16 Reported Vitamin B-12 (Cyanocobalamin) 1,000 Mcg Tab 1,000 Mcg PO QAM 06/25/16 Reported Flexeril (Cyclobenzaprine Hcl) 10 Mg Tab 5 Mg PO QAM 06/25/16 Reported Prazosin (Prazosin Hcl) 2 Mg Cap 4 Mg PO HS 01/20/16 Reported Dicyclomine HCl 20 Mg Tab 20 Mg PO BID 01/20/16 Reported Gabapentin 600 Mg Tab 600 Mg PO TID 10/02/15 Reported Effexor Extended Rel (Venlafaxine Hcl) 150 Mg Capcr 150 Mg PO QAM 10/02/15 Reported Lamotrigine 100 Mg Tab 200 Mg PO QAM 08/10/15 Reported Flovent Diskus (Fluticasone Propionate (Inhala) 250 Mcg/Blist Aer 1 Puff INH BID 08/10/15 Reported Epipen (Epinephrine) 0.3 Mg/0.3 Ml Inj 0.3 Mg IM UD PRN 11/04/14 Reported Claritin (Loratadine) 10 Mg Tab 10 Mg PO QAM 09/23/14 Reported Pantoprazole Sodium (Pantoprazole) 40 Mg Tab 40 Mg PO QAM 09/23/14 Reported Fluticasone Propionate 120 Sprays/6000 Mcg Inha 2 Sprays JERRY QAM PRN 09/23/14 Reported Levothyroxine Sodium 50 Mcg Tab 50 Mcg PO QAM 09/23/14 Reported Flexeril (Cyclobenzaprine Hcl) 10 Mg Tab 10 Mg PO HS 08/07/13 Reported Inpatient Medications: Current Inpatient Medications Medications (Trade) Dose Ordered Sig/Shelli Route Start Time Stop Time Status Last Admin Dose Admin Ioversol (Optiray 320) 111 ml UD PRN IV 01/08/17 16:45 01/12/17 16:44 Acetaminophen (Tylenol Tab) 650 mg Q4H PRN PO 01/08/17 18:30 02/07/17 18:29 Enoxaparin Sodium (Lovenox Inj) 40 mg Q24H SC 01/09/17 09:00 02/08/17 08:59 01/09/17 08:58 40 MG Levalbuterol (Xopenex 1.25MG/ 3ML Neb) 1.25 mg Q6R PRN INH 01/08/17 19:00 02/07/17 18:59 Aspirin (Ecotrin Tab) 81 mg QAM PO 01/09/17 09:00 02/08/17 08:59 01/09/17 08:56 81 MG Ketorolac Tromethamine (Toradol Inj) 30 mg Q6H PRN IV 01/08/17 19:45 01/13/17 19:44 01/09/17 14:43 30 MG Cyanocobalamin (Vitamin B-12 Tab) 1,000 mcg QAM PO 01/09/17 09:00 02/08/17 08:59 01/09/17 08:55 1,000 MCG Cyclobenzaprine HCl (Flexeril Tab) 5 mg QAM PO 01/09/17 09:00 02/08/17 08:59 01/09/17 08:57 5 MG Cyclobenzaprine HCl (Flexeril Tab) 10 mg HS PO 01/08/17 21:00 02/07/17 20:59 01/08/17 22:19 10 MG Dicyclomine HCl (Bentyl Tab) 20 mg BID PO 01/08/17 21:00 02/07/17 20:59 01/09/17 08:56 20 MG Epinephrine (Epipen) 0.3 mg UD PRN IM 01/08/17 20:15 02/07/17 20:14 Fluticasone Propionate (Flonase Nasal [place]) 2 sprays QAM PRN JERRY 01/08/17 20:15 02/07/17 20:14 Gabapentin (Neurontin Tab) 600 mg TID PO 01/08/17 21:00 02/07/17 20:59 01/09/17 13:45 600 MG Hydroxyzine HCl (Vistaril Tab) 75 mg HS PO 01/08/17 21:00 02/07/17 20:59 01/08/17 22:21 75 MG Lamotrigine (Lamictal Tab) 200 mg QAM PO 01/09/17 09:00 02/08/17 08:59 01/09/17 08:56 200 MG Levothyroxine Sodium (Synthroid Tab) 50 mcg DAILYBB PO 01/09/17 06:30 02/08/17 06:29 01/09/17 08:52 50 MCG Loratadine (Claritin Tab) 10 mg QAM PO 01/09/17 09:00 02/08/17 08:59 01/09/17 08:57 10 MG Pantoprazole Sodium (Protonix Tab) 40 mg QAM PO 01/09/17 09:00 02/08/17 08:59 01/09/17 08:57 40 MG Rizatriptan Benzoate (Maxalt Tab) 10 mg PRN PRN PO 01/08/17 20:15 02/07/17 20:14 01/09/17 15:40 10 MG Topiramate (Topamax Tab) 100 mg BID PO 01/08/17 21:00 02/07/17 20:59 01/09/17 08:56 100 MG Venlafaxine HCl (effeXOR EXTENDED REL CAP) 150 mg QAM PO 01/09/17 09:00 02/08/17 08:59 01/09/17 08:56 150 MG Albuterol (Ventolin Hfa) Take 2-4 puffs every ... Q4H PRN INH 01/08/17 20:15 02/07/17 20:14 Ferrous Sulfate (Feosol Tab) 325 mg DAILY PO 01/09/17 09:00 02/08/17 08:59 01/09/17 08:57 325 MG Fluticasone Propionate (Flovent Hfa 110MCG Inhaler) 1 puffs BID INH 01/08/17 21:00 02/07/17 20:59 01/09/17 10:07 1 PUFFS Miscellaneous Information (Order Awaiting Action) 1 ea QS N/A 01/09/17 00:00 02/08/17 00:00 Prazosin HCl (Prazosin) 4 mg HS PO 01/08/17 21:00 02/07/17 20:59 01/08/17 22:20 4 MG Labetalol HCl (Normodyne IV) 10 mg Q4H PRN IV 01/08/17 20:15 02/07/17 20:14 Ceftriaxone Sodium 2000 mg/ Dextrose 70 ml @ 100 mls/hr Q24H IV 01/10/17 16:00 01/18/17 15:59 Potassium Chloride 40 meq/ Sodium Chloride 1,020 ml @ 80 mls/hr [id number] IV 01/09/17 16:45 02/07/17 16:44 01/09/17 16:40 80 MLS/HR Promethazine HCl 12.5 mg/Sodium Chloride 50.5 ml @ 204 mls/hr Q6H PRN IV 01/09/17 17:30 02/08/17 17:29 Review of Systems Review of Systems Constitutional: + fever, + chills, + frequent headaches Neurological: + dizzy, No passing out, No numbness/tingling, No seizures Endocrine: + too cold, + tired/sluggish, No excessive thirst Gastrointestinal: + see HPI, + nausea, No indigestion, No vomiting, No constipation, No diarrhea Cardiovascular: + chest pain, + irregular heartbeat, + palpitations, No swelling ankles/feet Respiratory: No shortness of breath, No chronic cough Psychologic / Mental: + nervous, + difficulty sleeping Female : + frequent urination, + painful urination, + infections, + kidney stones Physical Exam Vital Signs: Vital Signs Past 12 Hours Date Time Temp Pulse Resp B/P (MAP) Pulse Ox O2 Delivery O2 Flow Rate FiO2 01/09/17 16:00 Room Air 01/09/17 15:34 36.8 101 20 137/73 (94) 96 Room Air 01/09/17 12:00 97 Room Air 01/09/17 11:28 36.9 103 18 121/79 (93) 97 Room Air 01/09/17 07:31 97 Room Air 01/09/17 07:31 96 01/09/17 07:21 36.8 92 18 100/67 (78) 96 Room Air Physical Exam: General Appearance: WD/WN, no apparent distress, + obese Eyes: bilateral eyes normal inspection ENT: hearing grossly normal Neck: supple, no adenopathy, no JVD, trachea midline Respiratory/Chest: no respiratory distress, no accessory muscle use Gastrointestinal: Abdomen: normal abdomen Bladder: normal bladder Renal: pertinent finding (left cva tenderness) Hernia: absent hernia Spleen: normal spleen Extremities: non-tender, normal inspection, no pedal edema, no calf tenderness , normal capillary refill Neurologic/Psychiatric: alert, normal mood/affect, oriented x 3 Skin: normal color, warm/dry, no rash Lymphatic: no adenopathy Assessment & Plan Assessment & Plan left pyelonephritis urine growing e coli, also in blood tailor abt for culture results 2 week duration for pyelonephritis with bacteremia if vegetations found on EVELYNE tomorrow then will have to be longer. No plan to remove right stone at this time.
[2017-01-09] MEDS: PRAZOSIN HCL 1 MG CAP PO SCH (21:26)
[2017-01-09] MEDS: hydrOXYzine HCL 25 MG TAB PO SCH (21:28)
[2017-01-10] VITALS (18 sets, daily range): BP systolic 119–164; BP diastolic 53–94; PULSE 68–97; TEMP 36.7–37.2; O2SAT 92–99
[2017-01-10 04:36] LABS: BASO % 0.2 %; BASO ABS # 0.03 K/uL (0-0.2); COMPLETE YES; EOS % 0.8 %; IG% 0.4 %; LYMPH % 9.3 %; LYMPH ABS # 1.57 K/uL (1.2-3.4); MEAN CELL VOLUME 88.2 fL (80-100); MEAN CORPUSCULAR HEMOGLOBIN 29.1 pg (25-34); MEAN PLATELET VOLUME 8.9 fL (7.4-10.4); MONO % 6.4 %; NEUT % 82.9 %; PLATELET COUNT 299 K/uL (130-400); RED BLOOD COUNT 3.74 M/uL (4.2-5.4)
[2017-01-10 05:02] LABS: PREG INTERNAL NEGATIVE QC NEG CLEAR BACKGROUND; PREG INTERNAL POSITIVE QC POS CONTROL LINE
[2017-01-10 05:05] LABS: BLOOD UREA NITROGEN 11 mg/dl (7-18); BUN/CREATININE RATIO 16.2 (10-20); CALCIUM 8.1 mg/dl (8.5-10.1); CARBON DIOXIDE 19 mmol/L (21-32); CHLORIDE 114 mmol/L (98-107); CREATININE 0.66 mg/dl (0.60-1.20); GLUCOSE 97 mg/dl (70-99); POTASSIUM 3.7 mmol/L (3.5-5.1); SODIUM 141 mmol/L (136-145)
[2017-01-10] MEDS: POTASSIUM CHLORIDE INJ 40 MEQ in SODIUM CHLORIDE 0.9% 1000ML 1,000 ML IV SCH ×2 (05:12→22:38)
[2017-01-10] MEDS: LEVOTHYROXINE 50 MCG TAB PO SCH (06:14)
[2017-01-10] MEDS ORDERED: PROPOFOL IV EMULSION 10 MG/ML 20 ML VIAL IV ONE (06:57)
[2017-01-10] MEDS ORDERED: LIDOCAINE HCL 2% 2 ML VIAL (20MG/ML) ONE (06:57)
--- NOTE | 2017-01-10 09:12 | Anesthesiology Progress Note ---
Anesthesia Post Op Note Date & Time Jan 10, 2017 at 09:12 Vital Signs Pain Intensity: 0 Vital Signs Past 12 Hours Date Time Temp Pulse Resp B/P (MAP) Pulse Ox O2 Delivery O2 Flow Rate FiO2 01/10/17 09:08 92 18 123/72 (89) 97 Nasal Cannula 3 01/10/17 08:58 89 16 125/69 (87) 96 Nasal Cannula 3 01/10/17 08:50 94 16 120/53 92 Nasal Cannula 4 01/10/17 08:45 87 16 119/64 94 Nasal Cannula 4 01/10/17 08:40 87 16 120/70 94 Nasal Cannula 4 01/10/17 08:35 96 16 120/64 98 Nasal Cannula 4 01/10/17 08:30 96 16 123/65 98 Nasal Cannula 4 01/10/17 08:28 94 16 146/94 98 Nasal Cannula 4 01/10/17 08:25 94 16 146/94 98 Nasal Cannula 4 01/10/17 08:20 94 16 144/76 98 Nasal Cannula 4 01/10/17 07:36 97 Room Air 01/10/17 04:00 37.2 97 20 131/86 (101) 94 Room Air 01/10/17 04:00 97 Room Air 01/10/17 00:00 95 01/10/17 00:00 97 Room Air 01/09/17 23:15 37.3 93 18 125/75 (92) 96 Room Air Notes Mental Status: alert / awake / arousable, participated in evaluation Pt Amnestic to Procedure: Yes Nausea / Vomiting: adequately controlled Pain: adequately controlled Airway Patency, RR, SpO2: stable & adequate BP & HR: stable & adequate Hydration State: stable & adequate Anesthetic Complications: no major complications apparent
[2017-01-10] MEDS: FERROUS SULFATE 325 MG TAB PO SCH (10:11)
[2017-01-10] MEDS: ASPIRIN 81 MG ECTAB PO SCH (10:11)
[2017-01-10] MEDS: FLUTICASONE HFA 110MCG INHALER INH SCH ×2 (10:11→20:20)
[2017-01-10] MEDS: CYANOCOBALAMIN 500 MCG TAB (VIT B-12) PO SCH (10:11)
[2017-01-10] MEDS: VENLAFAXINE HCL XR 150 MG CAPXR PO SCH (10:12)
[2017-01-10] MEDS: LORATADINE 10 MG TAB PO SCH (10:12)
[2017-01-10] MEDS: PANTOprazole SOD 40 MG TAB PO SCH (10:12)
[2017-01-10] MEDS: GABAPENTIN 600 MG TAB PO SCH ×3 (10:12→20:24)
[2017-01-10] MEDS: TOPIRAMATE 100 MG TAB PO SCH ×2 (10:13→20:23)
[2017-01-10] MEDS: DICYCLOMINE HCL 20 MG TAB PO SCH ×2 (10:14→20:25)
[2017-01-10] MEDS: ENOXAPARIN 40 MG/0.4 ML SYR SC SCH (10:15)
[2017-01-10] MEDS: CYCLOBENZAPRINE HCL 10 MG TAB PO SCH ×2 (10:15→20:22)
--- NOTE | 2017-01-10 11:09 | Progress Note ---
Internal Med Progress Note Date of Service: Jan 10, 2017. Provider Documentation: SUBJECTIVE: Seen and examined at bedside Had EVELYNE this morning reports some sore throat after the procedure Abd pain is improving Denies SOB, CP OBJECTIVE: Vital Signs-as noted below General Appearance:Moderately built and nourished, no apparent distress Head: normocephalic, Atraumatic Eyes: normal inspection, EOMI, PERRL Neck: supple, Trachea midline Respiratory/Chest: decreased breath sounds, CTA Cardiovascular: S1, S2, No murmur Abdomen/GI:Soft, B/L LQ tender tender, Bowel sounds present Extremities/Musculoskelatal:normal inspection, no edema Neurologic/Psych:AAOX3, grossly no focal neurological deficits Skin:normal color,warm Lab data as noted below. ASSESSMENT & PLAN: Patient is a 41yr female with a PMH of recurrent UTIs, h/o kidney stones, Bipolar II disorder, fibromyalgia and other problems listed below who presents with worsening abdominal pain for one day duration Sepsis secondary to Pyelonephritis, possible Endocarditis: Leukocytosis persistent CT abd/pelvis with subtle perinephric and periureteral edema on L with minimal fullness of the L renal collecting system. R sided nephrolithiasis ECHO showed echodensity attached to the left coronary cusp of the aortic valve Had EVELYNE today: report pending Continue Ceftriaxone for now Day #3 Pain control Blood culture:gram negative bacilli Urine culture: E.coli Repeat Blood cultures pending Appreciate ID/Cardiology help Atypical Chest pain: Resolved LV wall motion normal on ECHO Cardiac enzymes negative CXR-normal Lipid panel:wnl Appreciate cardiology Input QT prolongation in setting of Hypokalemia: Avoid QT prolonging meds Replace potassium, monitor H/o Asthma: Stable, no SOB Continued home inhalers Xopenex nebs PRN Fibromyalgia: Continue home dose gabapentin Bipolar II, anxiety: Stable Continue home meds Hypothyroidism: Continue synthroid DVT Ppx: Lovenox Code status: FULL PCP: Bill Dispo: Plan to return home once medically stable PROCEDURES: ECHO: * There is a large 1.0 x 0.8cm echodensity attached to the left coronary cusp of the aortic valve. * Differential diagnosis includes, but not limited to, vegetation, thrombus, tumor, or focal calcification. * There is no significant aortic regurgitation. * Aortic stenosis is absent. * The left ventricular wall motion is normal. * Ejection Fraction = >70 %. Vital Signs: Date Time Temp Pulse Resp B/P (MAP) Pulse Ox O2 Delivery O2 Flow Rate FiO2 01/10/17 09:18 93 18 122/70 (87) 96 Room Air 01/10/17 09:08 92 18 123/72 (89) 97 Nasal Cannula 3 01/10/17 08:58 89 16 125/69 (87) 96 Nasal Cannula 3 01/10/17 08:50 94 16 120/53 92 Nasal Cannula 4 01/10/17 08:45 87 16 119/64 94 Nasal Cannula 4 01/10/17 08:40 87 16 120/70 94 Nasal Cannula 4 01/10/17 08:35 96 16 120/64 98 Nasal Cannula 4 01/10/17 08:30 96 16 123/65 98 Nasal Cannula 4 01/10/17 08:28 94 16 146/94 98 Nasal Cannula 4 01/10/17 08:25 94 16 146/94 98 Nasal Cannula 4 01/10/17 08:20 94 16 144/76 98 Nasal Cannula 4 01/10/17 07:36 97 Room Air 01/10/17 04:00 37.2 97 20 131/86 (101) 94 Room Air 01/10/17 04:00 97 Room Air 01/10/17 00:00 95 01/10/17 00:00 97 Room Air 01/09/17 23:15 37.3 93 18 125/75 (92) 96 Room Air 01/09/17 20:10 Room Air 01/09/17 19:28 36.7 87 18 134/76 (95) 97 Room Air 01/09/17 16:00 Room Air 01/09/17 15:34 36.8 101 20 137/73 (94) 96 Room Air 01/09/17 12:00 97 Room Air 01/09/17 11:28 36.9 103 18 121/79 (93) 97 Room Air Lab Results: Results Past 24 Hours Test 01/09/17 11:43 01/09/17 16:38 01/09/17 22:06 01/10/17 04:21 Range/Units Troponin I < 0.015 < 0.015 < 0.015 0-0.045 ng/ml Sodium Level 142 141 136-145 mmol/L Potassium Level 3.5 3.7 3.5-5.1 mmol/L Chloride Level 113 114 98-107 mmol/L Carbon Dioxide Level 19 19 21-32 mmol/L Anion Gap 10.0 8.0 3-11 mmol/L Blood Urea Nitrogen 13 11 7-18 mg/dl Creatinine 0.81 0.66 0.60-1.20 mg/dl Est Creatinine Clear Calc Drug Dose 101.1 124.0 ml/min Estimated GFR () 103.1 125.4 Estimated GFR (Non- 89.0 108.2 BUN/Creatinine Ratio 16.4 16.2 10-20 Random Glucose 99 97 70-99 mg/dl Calcium Level 8.8 8.1 8.5-10.1 mg/dl Magnesium Level 2.1 2.0 1.8-2.4 mg/dl Total Creatine Kinase 34 29 26-192 U/L Creatine Kinase MB < 0.5 < 0.5 0.5-3.6 ng/ml Creatine Kinase MB Ratio 0-3.0 White Blood Count 16.80 4.8-10.8 K/uL Red Blood Count 3.74 4.2-5.4 M/uL Hemoglobin 10.9 12.0-16.0 g/dL Hematocrit 33.0 37-47 % Mean Corpuscular Volume 88.2 80-100 fL Mean Corpuscular Hemoglobin 29.1 25-34 pg Mean Corpuscular Hemoglobin Concent 33.0 32-36 g/dl Platelet Count 299 130-400 K/uL Mean Platelet Volume 8.9 7.4-10.4 fL Neutrophils (%) (Auto) 82.9 % Lymphocytes (%) (Auto) 9.3 % Monocytes (%) (Auto) 6.4 % Eosinophils (%) (Auto) 0.8 % Basophils (%) (Auto) 0.2 % Neutrophils # (Auto) 13.94 1.4-6.5 K/uL Lymphocytes # (Auto) 1.57 1.2-3.4 K/uL Monocytes # (Auto) 1.07 0.11-0.59 K/uL Eosinophils # (Auto) 0.13 0-0.5 K/uL Basophils # (Auto) 0.03 0-0.2 K/uL RDW Standard Deviation 42.5 36.4-46.3 fL RDW Coefficient of Variation 13.2 11.5-14.5 % Immature Granulocyte % (Auto) 0.4 % Immature Granulocyte # (Auto) 0.06 0.00-0.02 K/uL Human Chorionic Gonadotropin, Qual NEG NEG Microbiology Results 01/10/17 Blood Culture, Received Pending 01/10/17 Blood Culture, Received Pending
--- NOTE | 2017-01-10 11:31 | TEE ---
*NOTICE TO RECEIVING CON[employer]UTION [employer]Y AGENCY This information is strictly Confidential and protected under [place] law. [place] law prohibits you from making any further disclosure of this information unless further disclosure is expressly permitted by the written consent of the person to whom it pertains or is authorized by law. A general authorization for the release of medical or other information is not sufficient for this purpose. Hospital accepts no responsibility if the information is made available to any other person, INCLUDING THE PATIENT. Interpretation Summary * Name: DONALD RAMIREZ Study Date: 01/10/2017 07:50 AM BP: 133/81 mmHg * Patient Location: [facility]\S\N280\S\1 HR: 92 * : 1975 (M/d/yyyy) Gender: Female Height: 64 in * Age: 41 yrs Ethnicity: [place] Weight: 212 lb * Ordering Physician: Reynaldo Jones * Referring Physician: Self, Referred * Performed By: Shaista Wells RCS * * Reason For Study: Endocarditis * BSA: 2.0 m2 * -- Conclusions -- * The aortic valve is trileaflet. * There is mild to moderate thickening of the right coronary aortic valve cusp. * No obvious vegetation or mobile echodensity visualized. * No aortic regurgitation is present. * No hemodynamically significant valvular aortic stenosis. * Ejection Fraction = 60-65%. * Mild atherosclerotic plaque(s) in the descending aorta. Procedure Details * The study was performed in Cardiac Catheterization Lab. * Time out was conducted by the physician, nurse, and technology project manager with positive identification of patient and procedure. * Informed consent for Transesophageal Echocardiogram was obtained prior to the procedure. * An intravenous line was placed. A topical anesthetic agent was used for oropharangeal anesthesia. A bite block was inserted. * Sedation performed by the anesthesia department. * A multifrequency, multiplane transesopheageal echocardiographic endoscope was inserted and manipulated in the standard fashion to achieve multiplane views. * The transesophageal probe was passed without difficulty. * Contrast injection with agitated saline was performed. * EVELYNE Probe #3 utilized for procedure. Procedure Start Time: 0825 Procedure End/Probe Out Time: 0850 * The usual views were obtained; basal, mid-esophageal, transgastric and aortic views. * The patient tolerated the procedure well without evidence of orophangeal or esophageal trauma. * A 2D transesophageal echocardiogram was performed. * A 2D transesophageal echocardiogram with color flow Doppler was performed. * A 2D transesophageal echocardiogram with Doppler and color flow Doppler was performed. Left Ventricle * The left ventricle is normal in size. * There is normal left ventricular wall thickness. * Left ventricular systolic function is normal. * Ejection Fraction = 60-65%. * The left ventricular wall motion is normal. Right Ventricle * The right ventricle is normal in size and function. Atria * The left atrial size is normal. * No thrombus is detected in the left atrial appendage. * Right atrial size is normal. * The interatrial septum is intact with no evidence for an atrial septal defect. Mitral Valve * The mitral valve anatomy is normal. * There is no mitral valve stenosis. * There is trace mitral regurgitation. Tricuspid Valve * The tricuspid valve is normal. * There is no tricuspid stenosis. * Significant tricuspid regurgitation is absent. Aortic Valve * The aortic valve is trileaflet. * There is mild to moderate thickening of the right coronary aortic valve cusp. No obvious vegetation or mobile echodensity visualized. * No hemodynamically significant valvular aortic stenosis. * No aortic regurgitation is present. Pulmonic Valve * The pulmonic valve is not well seen, but is grossly normal. Great Vessels * The aortic root is normal size. * Mild atherosclerotic plaque(s) in the descending aorta. * No siginficant aortic plaque in the ascending aorta or arch. Pericardium * There is no pericardial effusion.
[2017-01-10] MEDS: KETOROLAC TROMETHAMINE 30 MG/ML VIAL IV PRN ×2 (14:26→23:11)
--- NOTE | 2017-01-10 14:26 | Progress Note ---
Subjective Date of Service: Jan 10, 2017. Subjective Pt evaluation today including: conversation w/ patient, physical exam, chart review, lab review pt sleepy, s/p LEANN, tolerated well. blood culture with gnr, awaiting ID. urine with E. coli, s to ctx. tolerating abx. no f/c. no cp. no n/v/d/abd pain. no dysruia on exam today. wbc improved. Problem List Medical Problems: (1) Abdominal pain Status: Acute (2) Abdominal pain Status: Acute (3) Acute back pain Status: Acute (4) Asthmatic bronchitis Status: Acute (5) Chronic abdominal pain Status: Acute (6) Chronic back pain Status: Acute (7) Concussion Status: Acute (8) Conversion reaction Status: Acute (9) Fall Status: Acute (10) Mild closed head injury Status: Acute (11) Multiple complaints Status: Acute (12) Pleurisy Status: Acute (13) Pneumonia Status: Acute (14) Pyelonephritis Status: Acute (15) Rib pain Status: Acute (16) SOB (shortness of breath) Status: Acute (17) Sunburn Status: Acute (18) Thought disorder Status: Acute (19) Upper abdominal pain Status: Acute (20) UTI (urinary tract infection) Status: Acute Social History Problems: (1) Anxiety State Nos Status: Chronic (2) Asthma, Unspecified Status: Chronic (3) Depression Status: Acute (4) Hypertension Status: Acute (5) Migraine Unspecified W/O Intractable Migraine Status: Chronic (6) Pancreatitis Status: Chronic (7) UTI (urinary tract infection) Status: Acute Objective Vital Signs Date Time Temp Pulse Resp B/P (MAP) Pulse Ox O2 Delivery O2 Flow Rate FiO2 01/10/17 12:00 97 Room Air 01/10/17 11:21 37.1 95 18 124/85 (98) 97 01/10/17 09:18 93 18 122/70 (87) 96 Room Air 01/10/17 09:08 92 18 123/72 (89) 97 Nasal Cannula 3 01/10/17 08:58 89 16 125/69 (87) 96 Nasal Cannula 3 01/10/17 08:50 94 16 120/53 92 Nasal Cannula 4 01/10/17 08:45 87 16 119/64 94 Nasal Cannula 4 01/10/17 08:40 87 16 120/70 94 Nasal Cannula 4 01/10/17 08:35 96 16 120/64 98 Nasal Cannula 4 01/10/17 08:30 96 16 123/65 98 Nasal Cannula 4 01/10/17 08:28 94 16 146/94 98 Nasal Cannula 4 01/10/17 08:25 94 16 146/94 98 Nasal Cannula 4 01/10/17 08:20 94 16 144/76 98 Nasal Cannula 4 01/10/17 07:36 97 Room Air 01/10/17 04:00 37.2 97 20 131/86 (101) 94 Room Air 01/10/17 04:00 97 Room Air 01/10/17 00:00 95 01/10/17 00:00 97 Room Air 01/09/17 23:15 37.3 93 18 125/75 (92) 96 Room Air 01/09/17 20:10 Room Air 01/09/17 19:28 36.7 87 18 134/76 (95) 97 Room Air 01/09/17 16:00 Room Air 01/09/17 15:34 36.8 101 20 137/73 (94) 96 Room Air Physical Exam General Appearance: WD/WN, no apparent distress Eyes: normal inspection, PERRL Neck: supple Respiratory/Chest: lungs clear, normal breath sounds, no respiratory distress Cardiovascular: regular rate, rhythm, no edema Abdomen: non tender, soft Extremities: non-tender, normal inspection, no pedal edema Neurologic/Psychiatric: alert, oriented x 3 Skin: normal color, warm/dry, no rash Laboratory Results Item Value Date Time Urine Culture - Preliminary Resulted 01/08/17 1450 Urine , Clean Catch Escherichia Coli Blood Culture - Preliminary Resulted 01/08/17 1729 Blood Gram Negative Bacilli Blood Culture - Preliminary Resulted 01/08/17 1729 Blood Gram Negative Bacilli Urine Culture - Final Complete 01/08/17 1450 Urine , Clean Catch Escherichia Coli Blood Culture - Preliminary Resulted 01/08/17 1719 Blood NO GROWTH TO DATE. Last 24 Hours Test 01/09/17 16:38 01/09/17 22:06 01/10/17 04:21 Sodium Level 142 mmol/L 141 mmol/L Potassium Level 3.5 mmol/L 3.7 mmol/L Chloride Level 113 mmol/L 114 mmol/L Carbon Dioxide Level 19 mmol/L 19 mmol/L Anion Gap 10.0 mmol/L 8.0 mmol/L Blood Urea Nitrogen 13 mg/dl 11 mg/dl Creatinine 0.81 mg/dl 0.66 mg/dl Est Creatinine Clear Calc Drug Dose 101.1 ml/min 124.0 ml/min Estimated GFR () 103.1 125.4 Estimated GFR (Non- 89.0 108.2 BUN/Creatinine Ratio 16.4 16.2 Random Glucose 99 mg/dl 97 mg/dl Calcium Level 8.8 mg/dl 8.1 mg/dl Magnesium Level 2.1 mg/dl 2.0 mg/dl Total Creatine Kinase 34 U/L 29 U/L Creatine Kinase MB < 0.5 ng/ml < 0.5 ng/ml Creatine Kinase MB Ratio Troponin I < 0.015 ng/ml < 0.015 ng/ml White Blood Count 16.80 K/uL Red Blood Count 3.74 M/uL Hemoglobin 10.9 g/dL Hematocrit 33.0 % Mean Corpuscular Volume 88.2 fL Mean Corpuscular Hemoglobin 29.1 pg Mean Corpuscular Hemoglobin Concent 33.0 g/dl Platelet Count 299 K/uL Mean Platelet Volume 8.9 fL Neutrophils (%) (Auto) 82.9 % Lymphocytes (%) (Auto) 9.3 % Monocytes (%) (Auto) 6.4 % Eosinophils (%) (Auto) 0.8 % Basophils (%) (Auto) 0.2 % Neutrophils # (Auto) 13.94 K/uL Lymphocytes # (Auto) 1.57 K/uL Monocytes # (Auto) 1.07 K/uL Eosinophils # (Auto) 0.13 K/uL Basophils # (Auto) 0.03 K/uL RDW Standard Deviation 42.5 fL RDW Coefficient of Variation 13.2 % Immature Granulocyte % (Auto) 0.4 % Immature Granulocyte # (Auto) 0.06 K/uL Human Chorionic Gonadotropin, Qual NEG Assessment and Plan (1) Gram negative septicemia Assessment & Plan: continue abx, follow repeat cultures, await ID gnr in blood. follow leann results. (2) Pyelonephritis
--- NOTE | 2017-01-10 14:37 | Cardiology Follow-Up ---
Subjective General Date of Service: Jan 10, 2017. Chief Complaint: left pyelonephritis Pt evaluation today including: conversation w/ patient, physical exam, chart review, lab review, review of studies, review of inpatient medication list History of Present Illness The patient is a 41 year old female seen in follow-up. No obvious vegetation on transesophageal echo. Thickening of the right aortic valve coronary cusp noted. Patient tolerated procedure well. No recurrent fevers. Allergies Coded Allergies: BEE STING (Verified Allergy, Severe, ANAPHYLAXIS, 01/08/17) Morphine (Verified Adverse Reaction, Intermediate, HALLUCINATIONS, 01/08/17 ) Social History Smoking Status: Never Smoker Hx Tobacco Use In Past Year?: No Hx Alcohol Use - Type And Amou: No Hx Substance Use - Type And Am: No Problem List Medical Problems: (1) Abdominal pain Status: Acute (2) Abdominal pain Status: Acute (3) Acute back pain Status: Acute (4) Asthmatic bronchitis Status: Acute (5) Chronic abdominal pain Status: Acute (6) Chronic back pain Status: Acute (7) Concussion Status: Acute (8) Conversion reaction Status: Acute (9) Fall Status: Acute (10) Mild closed head injury Status: Acute (11) Multiple complaints Status: Acute (12) Pleurisy Status: Acute (13) Pneumonia Status: Acute (14) Pyelonephritis Status: Acute (15) Rib pain Status: Acute (16) SOB (shortness of breath) Status: Acute (17) Sunburn Status: Acute (18) Thought disorder Status: Acute (19) Upper abdominal pain Status: Acute (20) UTI (urinary tract infection) Status: Acute Social History Problems: (1) Anxiety State Nos Status: Chronic (2) Asthma, Unspecified Status: Chronic (3) Depression Status: Acute (4) Hypertension Status: Acute (5) Migraine Unspecified W/O Intractable Migraine Status: Chronic (6) Pancreatitis Status: Chronic (7) UTI (urinary tract infection) Status: Acute Review of Systems Respiratory: No cough, No sputum, No wheezing, No shortness of breath, No dyspnea on exertion, No dyspnea at rest, No hemoptysis Cardiac: No chest pain, No orthopnea, No PND, No edema, No claudication, No palpitations Physical Exam Vital Signs Last Vital Signs Documentation Date Time Temp Pulse Resp B/P (MAP) Pulse Ox O2 Delivery O2 Flow Rate FiO2 01/10/17 12:00 97 Room Air 9/28/17 11:21 37.1 95 18 124/85 (98) 01/10/17 09:08 3 Physical Exam Constitutional: General Apperance: well-nourished, obese Level of Distress: NAD Ambulation: ambulating normally Head: normocephalic, atraumatic ENMT: normal ENT inspection Neck: supple, trachea midline Lungs: Auscultation: breath sounds normal, no wheezing, no rales/crackles, no rhonchi Cardiovascular: Heart Auscultation: RRR, normal S1, normal S2, no murmurs Peripheral Pulses: Radial Pulse: normal on the right Abdomen: Bowel Sounds: normal Inspection & Palpation: soft, non-distended, no tenderness, guarding & rebound Extremities: no cyanosis, no edema, no clubbing, no ulcers Neurologic: Gait & Station: pertinent finding (no focal deficit) Cranial Nerves: grossly intact Assessment and Plan Assessment and Plan FINAL IMPRESSION: 1. Escherichia coli urosepsis and gram negative bacteremia with questionable vegetation noted on transthoracic echo. Transesophageal echo performed today demonstrated thickening of the right aortic valve coronary cusp. No obvious vegetation. 2. Tachycardia related to sepsis. 3. Prolonged QT related to hypokalemia - resolved, no dysrhythmias on telemetry 4. Atypical chest discomfort - likely musculoskeletal, resolved PLAN AND RECOMMENDATIONS: Continue antibiotics per the direction of infectious disease. No further cardiac testing at this time. There is no obvious vegetation on transesophageal echo, however, I would recommend repeat blood cultures after completing antibiotic therapy. Laboratory Results Last 24 Hours Test 01/09/17 16:38 01/09/17 22:06 01/10/17 04:21 Sodium Level 142 mmol/L 141 mmol/L Potassium Level 3.5 mmol/L 3.7 mmol/L Chloride Level 113 mmol/L 114 mmol/L Carbon Dioxide Level 19 mmol/L 19 mmol/L Anion Gap 10.0 mmol/L 8.0 mmol/L Blood Urea Nitrogen 13 mg/dl 11 mg/dl Creatinine 0.81 mg/dl 0.66 mg/dl Est Creatinine Clear Calc Drug Dose 101.1 ml/min 124.0 ml/min Estimated GFR () 103.1 125.4 Estimated GFR (Non- 89.0 108.2 BUN/Creatinine Ratio 16.4 16.2 Random Glucose 99 mg/dl 97 mg/dl Calcium Level 8.8 mg/dl 8.1 mg/dl Magnesium Level 2.1 mg/dl 2.0 mg/dl Total Creatine Kinase 34 U/L 29 U/L Creatine Kinase MB < 0.5 ng/ml < 0.5 ng/ml Creatine Kinase MB Ratio Troponin I < 0.015 ng/ml < 0.015 ng/ml White Blood Count 16.80 K/uL Red Blood Count 3.74 M/uL Hemoglobin 10.9 g/dL Hematocrit 33.0 % Mean Corpuscular Volume 88.2 fL Mean Corpuscular Hemoglobin 29.1 pg Mean Corpuscular Hemoglobin Concent 33.0 g/dl Platelet Count 299 K/uL Mean Platelet Volume 8.9 fL Neutrophils (%) (Auto) 82.9 % Lymphocytes (%) (Auto) 9.3 % Monocytes (%) (Auto) 6.4 % Eosinophils (%) (Auto) 0.8 % Basophils (%) (Auto) 0.2 % Neutrophils # (Auto) 13.94 K/uL Lymphocytes # (Auto) 1.57 K/uL Monocytes # (Auto) 1.07 K/uL Eosinophils # (Auto) 0.13 K/uL Basophils # (Auto) 0.03 K/uL RDW Standard Deviation 42.5 fL RDW Coefficient of Variation 13.2 % Immature Granulocyte % (Auto) 0.4 % Immature Granulocyte # (Auto) 0.06 K/uL Human Chorionic Gonadotropin, Qual NEG
[2017-01-10] MEDS: CEFTRIAXONE SOD INJ 2,000 MG in DEXTROSE 5% 50ML 50 ML IV SCH (15:49)
[2017-01-10] MEDS: hydrOXYzine HCL 25 MG TAB PO SCH (20:21)
[2017-01-10] MEDS: PRAZOSIN HCL 1 MG CAP PO SCH (20:22)
[2017-01-11] VITALS (7 sets, daily range): BP systolic 126–142; BP diastolic 74–89; PULSE 74–86; TEMP 36.5–36.9; O2SAT 92–98
[2017-01-11 06:38] LABS: HEMATOCRIT 31.3 % (37-47); MEAN CELL VOLUME 88.7 fL (80-100); MEAN CORPUSCULAR HEMOGLOBIN 30.3 pg (25-34); MEAN CORPUSCULAR HGB CONC 34.2 g/dl (32-36); MEAN PLATELET VOLUME 8.8 fL (7.4-10.4); PLATELET COUNT 285 K/uL (130-400); RED BLOOD COUNT 3.53 M/uL (4.2-5.4); WHITE BLOOD COUNT 8.48 K/uL (4.8-10.8)
[2017-01-11 07:05] LABS: BUN/CREATININE RATIO 12.3 (10-20); CALCIUM 8.8 mg/dl (8.5-10.1); CREATININE 0.78 mg/dl (0.60-1.20); MAGNESIUM 2.1 mg/dl (1.8-2.4); POTASSIUM 3.7 mmol/L (3.5-5.1)
[2017-01-11] MEDS: CYCLOBENZAPRINE HCL 10 MG TAB PO SCH ×2 (07:53→20:54)
[2017-01-11] MEDS: LEVOTHYROXINE 50 MCG TAB PO SCH (07:53)
[2017-01-11] MEDS: ASPIRIN 81 MG ECTAB PO SCH (07:53)
[2017-01-11] MEDS: VENLAFAXINE HCL XR 150 MG CAPXR PO SCH (07:53)
[2017-01-11] MEDS: DICYCLOMINE HCL 20 MG TAB PO SCH ×2 (07:53→20:54)
[2017-01-11] MEDS: TOPIRAMATE 100 MG TAB PO SCH ×2 (07:53→20:52)
[2017-01-11] MEDS: LORATADINE 10 MG TAB PO SCH (07:53)
[2017-01-11] MEDS: FERROUS SULFATE 325 MG TAB PO SCH (07:53)
[2017-01-11] MEDS: GABAPENTIN 600 MG TAB PO SCH ×3 (07:53→20:53)
[2017-01-11] MEDS: PANTOprazole SOD 40 MG TAB PO SCH (07:53)
[2017-01-11] MEDS: FLUTICASONE HFA 110MCG INHALER INH SCH ×2 (07:54→20:52)
[2017-01-11] MEDS: CYANOCOBALAMIN 500 MCG TAB (VIT B-12) PO SCH (07:54)
[2017-01-11] MEDS: ENOXAPARIN 40 MG/0.4 ML SYR SC SCH (07:54)
--- NOTE | 2017-01-11 08:29 | Anesthesiology Progress Note ---
Anesthesia Post Op Note Date & Time Jan 11, 2017 at 08:29 Vital Signs Pain Intensity: 0.0 Vital Signs Past 12 Hours Date Time Temp Pulse Resp B/P (MAP) Pulse Ox O2 Delivery O2 Flow Rate FiO2 01/11/17 07:25 36.7 86 16 127/87 (100) 96 01/11/17 04:00 Room Air 01/11/17 03:58 36.5 84 16 126/74 (91) 97 Room Air 01/11/17 00:00 Room Air 01/10/17 23:47 36.7 84 20 164/66 (98) 99 Room Air Notes Mental Status: alert / awake / arousable, participated in evaluation Pt Amnestic to Procedure: Yes Nausea / Vomiting: adequately controlled Pain: adequately controlled Airway Patency, RR, SpO2: stable & adequate BP & HR: stable & adequate Hydration State: stable & adequate Anesthetic Complications: no major complications apparent
--- NOTE | 2017-01-11 10:37 | Progress Note ---
Subjective Date of Service: Jan 11, 2017. Subjective Pt evaluation today including: conversation w/ patient, physical exam, chart review, lab review feeling better today, no f/c. tolerating abx. no abd pain, no gu symptoms. wbc improved and is now nml. repeat blood cultures pending. Urine culture and initial blood cultures are growing E. coli. Spoke with cardiology and EVELYNE negative for veg. thickened valve but no infection. All remaining ros reviewed and are negative. Problem List Medical Problems: (1) Abdominal pain Status: Acute (2) Abdominal pain Status: Acute (3) Acute back pain Status: Acute (4) Asthmatic bronchitis Status: Acute (5) Chronic abdominal pain Status: Acute (6) Chronic back pain Status: Acute (7) Concussion Status: Acute (8) Conversion reaction Status: Acute (9) Fall Status: Acute (10) Mild closed head injury Status: Acute (11) Multiple complaints Status: Acute (12) Pleurisy Status: Acute (13) Pneumonia Status: Acute (14) Pyelonephritis Status: Acute (15) Rib pain Status: Acute (16) SOB (shortness of breath) Status: Acute (17) Sunburn Status: Acute (18) Thought disorder Status: Acute (19) Upper abdominal pain Status: Acute (20) UTI (urinary tract infection) Status: Acute Social History Problems: (1) Anxiety State Nos Status: Chronic (2) Asthma, Unspecified Status: Chronic (3) Depression Status: Acute (4) Hypertension Status: Acute (5) Migraine Unspecified W/O Intractable Migraine Status: Chronic (6) Pancreatitis Status: Chronic (7) UTI (urinary tract infection) Status: Acute Objective Vital Signs Date Time Temp Pulse Resp B/P (MAP) Pulse Ox O2 Delivery O2 Flow Rate FiO2 01/11/17 08:00 Room Air 01/11/17 07:25 36.7 86 16 127/87 (100) 96 01/11/17 04:00 Room Air 01/11/17 03:58 36.5 84 16 126/74 (91) 97 Room Air 01/11/17 00:00 Room Air 01/10/17 23:47 36.7 84 20 164/66 (98) 99 Room Air 01/10/17 20:00 97 Room Air 01/10/17 19:30 36.7 68 16 122/83 (96) 94 Room Air 01/10/17 16:00 97 Room Air 01/10/17 14:59 36.7 84 16 132/87 (102) 96 Room Air 01/10/17 12:00 97 Room Air 01/10/17 11:21 37.1 95 18 124/85 (98) 97 Physical Exam General Appearance: WD/WN, no apparent distress Eyes: normal inspection, EOMI Neck: supple Respiratory/Chest: lungs clear, normal breath sounds, no respiratory distress Cardiovascular: regular rate, rhythm, no edema, no murmur Abdomen: non tender, soft Extremities: non-tender, normal inspection, no pedal edema Neurologic/Psychiatric: alert, oriented x 3 Skin: normal color, warm/dry, no rash Laboratory Results Item Value Date Time Blood Culture - Preliminary Resulted 01/08/17 1729 Blood Escherichia Coli Urine Culture - Final Complete 01/08/17 1450 Urine , Clean Catch Escherichia Coli Blood Culture - Preliminary Resulted 01/08/17 1719 Blood NO GROWTH TO DATE. Last 24 Hours Test 01/11/17 06:08 White Blood Count 8.48 K/uL Red Blood Count 3.53 M/uL Hemoglobin 10.7 g/dL Hematocrit 31.3 % Mean Corpuscular Volume 88.7 fL Mean Corpuscular Hemoglobin 30.3 pg Mean Corpuscular Hemoglobin Concent 34.2 g/dl RDW Standard Deviation 43.4 fL RDW Coefficient of Variation 13.5 % Platelet Count 285 K/uL Mean Platelet Volume 8.8 fL Sodium Level 142 mmol/L Potassium Level 3.7 mmol/L Chloride Level 113 mmol/L Carbon Dioxide Level 21 mmol/L Anion Gap 8.0 mmol/L Blood Urea Nitrogen 10 mg/dl Creatinine 0.78 mg/dl Est Creatinine Clear Calc Drug Dose 105.9 ml/min Estimated GFR () 107.9 Estimated GFR (Non- 93.1 BUN/Creatinine Ratio 12.3 Random Glucose 87 mg/dl Calcium Level 8.8 mg/dl Magnesium Level 2.1 mg/dl Assessment and Plan (1) E. coli septicemia Assessment & Plan: No evidence of IE on EVELYNE, will continue ctx for now, upon d/ c can change abx to po keflex 500mg po tid with meals to complete 1 days from first negative culture, 01/10 negative to date No need for picc line and IV abx with negative EVELYNE ok for d/c from ID standpoint when otherwise stable (2) Pyelonephritis
--- NOTE | 2017-01-11 12:42 | Progress Note ---
Internal Med Progress Note Date of Service: Jan 11, 2017. Provider Documentation: SUBJECTIVE: Seen and examined at bedside Feels well today Denies CP/SOB/Abd pain No new complaints OBJECTIVE: Vital Signs-as noted below General Appearance:Moderately built and nourished, no apparent distress Head: normocephalic, Atraumatic Eyes: normal inspection, EOMI, PERRL Neck: supple, Trachea midline Respiratory/Chest: decreased breath sounds, CTA Cardiovascular: S1, S2, No murmur Abdomen/GI:Soft, non tender, Bowel sounds present Extremities/Musculoskelatal:normal inspection, no edema Neurologic/Psych:AAOX3, grossly no focal neurological deficits Skin:normal color,warm Lab data as noted below. ASSESSMENT & PLAN: Patient is a 41yr female with a PMH of recurrent UTIs, h/o kidney stones, Bipolar II disorder, fibromyalgia and other problems listed below who presents with worsening abdominal pain for one day duration Sepsis secondary to Pyelonephritis Endocarditis ruled out Leukocytosis resolved CT abd/pelvis with subtle perinephric and periureteral edema on L with minimal fullness of the L renal collecting system. R sided nephrolithiasis ECHO showed echodensity attached to the left coronary cusp of the aortic valve EVELYNE: No vegetation Continue Ceftriaxone for now Day # 4 Pain control Blood/Urine culture:E.coli Repeat Blood cultures pending Appreciate ID/Cardiology help Atypical Chest pain: Resolved LV wall motion normal on ECHO Cardiac enzymes negative CXR-normal Lipid panel:wnl Appreciate cardiology Input QT prolongation in setting of Hypokalemia: Avoid QT prolonging meds monitor potassium levels Resolved H/o Asthma: Stable, no SOB Continued home inhalers Xopenex nebs PRN Fibromyalgia: Continue home dose gabapentin Bipolar II, anxiety: Stable Continue home meds Hypothyroidism: Continue synthroid DVT Ppx: Lovenox Code status: FULL PCP: Bill Dispo: Plan to return home once medically stable PROCEDURES: ECHO: * There is a large 1.0 x 0.8cm echodensity attached to the left coronary cusp of the aortic valve. * Differential diagnosis includes, but not limited to, vegetation, thrombus, tumor, or focal calcification. * There is no significant aortic regurgitation. * Aortic stenosis is absent. * The left ventricular wall motion is normal. * Ejection Fraction = >70 %. EVELYNE: * The aortic valve is trileaflet. * There is mild to moderate thickening of the right coronary aortic valve cusp. * No obvious vegetation or mobile echodensity visualized. * No aortic regurgitation is present. * No hemodynamically significant valvular aortic stenosis. * Ejection Fraction = 60-65%. * Mild atherosclerotic plaque(s) in the descending aorta. Vital Signs: Date Time Temp Pulse Resp B/P (MAP) Pulse Ox O2 Delivery O2 Flow Rate FiO2 01/11/17 12:00 Room Air 01/11/17 11:18 36.6 78 16 141/88 (105) 98 01/11/17 08:00 Room Air 01/11/17 07:25 36.7 86 16 127/87 (100) 96 01/11/17 04:00 Room Air 01/11/17 03:58 36.5 84 16 126/74 (91) 97 Room Air 01/11/17 00:00 Room Air 01/10/17 23:47 36.7 84 20 164/66 (98) 99 Room Air 01/10/17 20:00 97 Room Air 01/10/17 19:30 36.7 68 16 122/83 (96) 94 Room Air 01/10/17 16:00 97 Room Air 01/10/17 14:59 36.7 84 16 132/87 (102) 96 Room Air Lab Results: Results Past 24 Hours Test 01/11/17 06:08 Range/Units White Blood Count 8.48 4.8-10.8 K/uL Red Blood Count 3.53 4.2-5.4 M/uL Hemoglobin 10.7 12.0-16.0 g/dL Hematocrit 31.3 37-47 % Mean Corpuscular Volume 88.7 80-100 fL Mean Corpuscular Hemoglobin 30.3 25-34 pg Mean Corpuscular Hemoglobin Concent 34.2 32-36 g/dl RDW Standard Deviation 43.4 36.4-46.3 fL RDW Coefficient of Variation 13.5 11.5-14.5 % Platelet Count 285 130-400 K/uL Mean Platelet Volume 8.8 7.4-10.4 fL Sodium Level 142 136-145 mmol/L Potassium Level 3.7 3.5-5.1 mmol/L Chloride Level 113 98-107 mmol/L Carbon Dioxide Level 21 21-32 mmol/L Anion Gap 8.0 3-11 mmol/L Blood Urea Nitrogen 10 7-18 mg/dl Creatinine 0.78 0.60-1.20 mg/dl Est Creatinine Clear Calc Drug Dose 105.9 ml/min Estimated GFR () 107.9 Estimated GFR (Non- 93.1 BUN/Creatinine Ratio 12.3 10-20 Random Glucose 87 70-99 mg/dl Calcium Level 8.8 8.5-10.1 mg/dl Magnesium Level 2.1 1.8-2.4 mg/dl
[2017-01-11] MEDS: CEFTRIAXONE SOD INJ 2,000 MG in DEXTROSE 5% 50ML 50 ML IV SCH (15:38)
[2017-01-11] MEDS: POTASSIUM CHLORIDE INJ 40 MEQ in SODIUM CHLORIDE 0.9% 1000ML 1,000 ML IV SCH (18:20)
[2017-01-11] MEDS: KETOROLAC TROMETHAMINE 30 MG/ML VIAL IV PRN (20:50)
[2017-01-11] MEDS: RIZATRIPTAN BENZOATE 10 MG TAB PO PRN (20:51)
[2017-01-11] MEDS: PRAZOSIN HCL 1 MG CAP PO SCH (20:53)
[2017-01-11] MEDS: hydrOXYzine HCL 25 MG TAB PO SCH (20:55)
[2017-01-12] VITALS (7 sets, daily range): BP systolic 132–144; BP diastolic 72–89; PULSE 68–82; TEMP 36.4–36.9; O2SAT 92–98
[2017-01-12] MEDS: LEVOTHYROXINE 50 MCG TAB PO SCH (05:42)
[2017-01-12 06:08] LABS: HEMATOCRIT 34.5 % (37-47); MEAN CELL VOLUME 88.7 fL (80-100); MEAN CORPUSCULAR HEMOGLOBIN 30.3 pg (25-34); MEAN CORPUSCULAR HGB CONC 34.2 g/dl (32-36); MEAN PLATELET VOLUME 8.9 fL (7.4-10.4); PLATELET COUNT 371 K/uL (130-400); RED BLOOD COUNT 3.89 M/uL (4.2-5.4); WHITE BLOOD COUNT 7.72 K/uL (4.8-10.8)
[2017-01-12 06:28] LABS: CREATININE 0.84 mg/dl (0.60-1.20)
[2017-01-12] MEDS: PANTOprazole SOD 40 MG TAB PO SCH (08:35)
[2017-01-12] MEDS: DICYCLOMINE HCL 20 MG TAB PO SCH ×2 (08:35→21:29)
[2017-01-12] MEDS: LORATADINE 10 MG TAB PO SCH (08:35)
[2017-01-12] MEDS: VENLAFAXINE HCL XR 150 MG CAPXR PO SCH (08:35)
[2017-01-12] MEDS: FLUTICASONE HFA 110MCG INHALER INH SCH ×2 (08:35→22:22)
[2017-01-12] MEDS: CYANOCOBALAMIN 500 MCG TAB (VIT B-12) PO SCH (08:36)
[2017-01-12] MEDS: TOPIRAMATE 100 MG TAB PO SCH ×2 (08:36→21:31)
[2017-01-12] MEDS: FERROUS SULFATE 325 MG TAB PO SCH (08:36)
[2017-01-12] MEDS: GABAPENTIN 600 MG TAB PO SCH ×3 (08:36→21:31)
[2017-01-12] MEDS: ASPIRIN 81 MG ECTAB PO SCH (08:36)
[2017-01-12] MEDS: CYCLOBENZAPRINE HCL 10 MG TAB PO SCH ×2 (08:36→21:32)
[2017-01-12] MEDS: ENOXAPARIN 40 MG/0.4 ML SYR SC SCH (09:03)
--- NOTE | 2017-01-12 11:05 | Progress Note ---
Internal Med Progress Note Date of Service: Jan 12, 2017. Provider Documentation: SUBJECTIVE: Seen and examined at bedside States having some abdominal pain Denies CP/SOB No new complaints OBJECTIVE: Vital Signs-as noted below General Appearance:Moderately built and nourished, no apparent distress Head: normocephalic, Atraumatic Eyes: normal inspection, EOMI, PERRL Neck: supple, Trachea midline Respiratory/Chest: decreased breath sounds, CTA Cardiovascular: S1, S2, No murmur Abdomen/GI:Soft, non tender, Bowel sounds present Extremities/Musculoskelatal:normal inspection, no edema Neurologic/Psych:AAOX3, grossly no focal neurological deficits Skin:normal color,warm Lab data as noted below. ASSESSMENT & PLAN: Patient is a 41yr female with a PMH of recurrent UTIs, h/o kidney stones, Bipolar II disorder, fibromyalgia and other problems listed below who presents with worsening abdominal pain for one day duration Sepsis secondary to Pyelonephritis Endocarditis ruled out Leukocytosis resolved CT abd/pelvis with subtle perinephric and periureteral edema on L with minimal fullness of the L renal collecting system. R sided nephrolithiasis ECHO showed echodensity attached to the left coronary cusp of the aortic valve EVELYNE: No vegetation Continue Ceftriaxone for now Day # 5. Plan to switch to keflex 500mg po tid for 2 weeks from first negative culture, 01/10 Pain control Blood/Urine culture:E.coli Repeat Blood cultures: No growth to date Appreciate ID/Cardiology help DC IVF Atypical Chest pain: Resolved LV wall motion normal on ECHO Cardiac enzymes negative CXR-normal Lipid panel:wnl Appreciate cardiology Input QT prolongation in setting of Hypokalemia: Avoid QT prolonging meds monitor potassium levels Resolved H/o Asthma: Stable, no SOB Continued home inhalers Xopenex nebs PRN Fibromyalgia: Continue home dose gabapentin Bipolar II, anxiety: Stable Continue home meds Hypothyroidism: Continue synthroid DVT Ppx: Lovenox Code status: FULL PCP: Bill Dispo: Plan to return home once medically stable PROCEDURES: ECHO: * There is a large 1.0 x 0.8cm echodensity attached to the left coronary cusp of the aortic valve. * Differential diagnosis includes, but not limited to, vegetation, thrombus, tumor, or focal calcification. * There is no significant aortic regurgitation. * Aortic stenosis is absent. * The left ventricular wall motion is normal. * Ejection Fraction = >70 %. EVELYNE: * The aortic valve is trileaflet. * There is mild to moderate thickening of the right coronary aortic valve cusp. * No obvious vegetation or mobile echodensity visualized. * No aortic regurgitation is present. * No hemodynamically significant valvular aortic stenosis. * Ejection Fraction = 60-65%. * Mild atherosclerotic plaque(s) in the descending aorta. Vital Signs: Date Time Temp Pulse Resp B/P (MAP) Pulse Ox O2 Delivery O2 Flow Rate FiO2 01/12/17 08:00 Room Air 01/12/17 08:00 36.6 72 16 144/72 (96) 95 Room Air 01/12/17 04:26 98 Room Air 01/12/17 03:12 36.7 68 18 133/74 (93) 92 Room Air 01/12/17 00:52 98 Room Air 01/11/17 23:56 36.7 74 20 142/89 (106) 92 Room Air 01/11/17 20:38 98 Room Air 01/11/17 20:14 36.9 82 18 132/80 (97) 98 Room Air 01/11/17 16:00 Room Air 01/11/17 15:07 36.8 82 18 131/89 (103) 97 Room Air 01/11/17 12:00 Room Air 01/11/17 11:18 36.6 78 16 141/88 (105) 98 Lab Results: Results Past 24 Hours Test 01/12/17 05:31 Range/Units White Blood Count 7.72 4.8-10.8 K/uL Red Blood Count 3.89 4.2-5.4 M/uL Hemoglobin 11.8 12.0-16.0 g/dL Hematocrit 34.5 37-47 % Mean Corpuscular Volume 88.7 80-100 fL Mean Corpuscular Hemoglobin 30.3 25-34 pg Mean Corpuscular Hemoglobin Concent 34.2 32-36 g/dl RDW Standard Deviation 42.1 36.4-46.3 fL RDW Coefficient of Variation 13.0 11.5-14.5 % Platelet Count 371 130-400 K/uL Mean Platelet Volume 8.9 7.4-10.4 fL Creatinine 0.84 0.60-1.20 mg/dl Est Creatinine Clear Calc Drug Dose 98.3 ml/min Estimated GFR () 98.7 Estimated GFR (Non- 85.1
[2017-01-12] MEDS: CEFTRIAXONE SOD INJ 2,000 MG in DEXTROSE 5% 50ML 50 ML IV SCH (15:48)
[2017-01-12] MEDS: KETOROLAC TROMETHAMINE 30 MG/ML VIAL IV PRN (20:12)
[2017-01-12] MEDS: PRAZOSIN HCL 1 MG CAP PO SCH (21:30)
[2017-01-12] MEDS: hydrOXYzine HCL 25 MG TAB PO SCH (21:31)
[2017-01-13] MEDS: LEVOTHYROXINE 50 MCG TAB PO SCH (06:16)
[2017-01-13 07:24] VITALS: BP 130/87; PULSE 71; TEMP 36.8; O2SAT 96
[2017-01-13] MEDS: FLUTICASONE HFA 110MCG INHALER INH SCH (08:18)
[2017-01-13] MEDS: DICYCLOMINE HCL 20 MG TAB PO SCH (08:18)
[2017-01-13] MEDS: LORATADINE 10 MG TAB PO SCH (08:19)
[2017-01-13] MEDS: TOPIRAMATE 100 MG TAB PO SCH (08:19)
[2017-01-13] MEDS: PANTOprazole SOD 40 MG TAB PO SCH (08:19)
[2017-01-13] MEDS: CYCLOBENZAPRINE HCL 10 MG TAB PO SCH (08:19)
[2017-01-13] MEDS: GABAPENTIN 600 MG TAB PO SCH ×2 (08:19→14:02)
[2017-01-13] MEDS: VENLAFAXINE HCL XR 150 MG CAPXR PO SCH (08:19)
[2017-01-13] MEDS: CYANOCOBALAMIN 500 MCG TAB (VIT B-12) PO SCH (08:20)
[2017-01-13] MEDS: FERROUS SULFATE 325 MG TAB PO SCH (08:20)
[2017-01-13] MEDS: ASPIRIN 81 MG ECTAB PO SCH (08:20)
[2017-01-13] MEDS: ENOXAPARIN 40 MG/0.4 ML SYR SC SCH (08:20)
--- NOTE | 2017-01-13 13:16 | Progress Note ---
Internal Med Progress Note Date of Service: Jan 13, 2017. Provider Documentation: SUBJECTIVE: Seen and examined at bedside Doing well today Minimal L flank discomfort Denies CP/SOB No new complaints OBJECTIVE: Vital Signs-as noted below General Appearance:Moderately built and nourished, no apparent distress Head: normocephalic, Atraumatic Eyes: normal inspection, EOMI, PERRL Neck: supple, Trachea midline Respiratory/Chest: decreased breath sounds, CTA Cardiovascular: S1, S2, No murmur Abdomen/GI:Soft, non tender, Bowel sounds present Extremities/Musculoskelatal:normal inspection, no edema Neurologic/Psych:AAOX3, grossly no focal neurological deficits Skin:normal color,warm Lab data as noted below. ASSESSMENT & PLAN: Patient is a 41yr female with a PMH of recurrent UTIs, h/o kidney stones, Bipolar II disorder, fibromyalgia and other problems listed below who presents with worsening abdominal pain for one day duration Sepsis secondary to Pyelonephritis Bacteremia Endocarditis ruled out Leukocytosis resolved CT abd/pelvis with subtle perinephric and periureteral edema on L with minimal fullness of the L renal collecting system. R sided nephrolithiasis ECHO showed echodensity attached to the left coronary cusp of the aortic valve EVELYNE: No vegetation Continue Ceftriaxone for now Day # 5. Plan to switch to keflex 500mg po tid for 2 weeks from first negative culture, 01/10 Pain control Blood/Urine culture:E.coli Repeat Blood cultures: No growth to date Appreciate ID/Cardiology help DC IVF Atypical Chest pain: Resolved LV wall motion normal on ECHO Cardiac enzymes negative CXR-normal Lipid panel:wnl Appreciate cardiology Input QT prolongation in setting of Hypokalemia: Avoid QT prolonging meds monitor potassium levels Resolved H/o Asthma: Stable, no SOB Continued home inhalers Xopenex nebs PRN Fibromyalgia: Continue home dose gabapentin Bipolar II, anxiety: Stable Continue home meds Hypothyroidism: Continue synthroid DVT Ppx: Lovenox Code status: FULL PCP: Bill Dispo: Plan to discharge home today Follow up with your Primary Care physician on 01/16/17 at 1:00pm Complete the antibiotic course as prescribed Seek immediate medical attention if your symptoms reoccur or worsen PROCEDURES: ECHO: * There is a large 1.0 x 0.8cm echodensity attached to the left coronary cusp of the aortic valve. * Differential diagnosis includes, but not limited to, vegetation, thrombus, tumor, or focal calcification. * There is no significant aortic regurgitation. * Aortic stenosis is absent. * The left ventricular wall motion is normal. * Ejection Fraction = >70 %. EVELYNE: * The aortic valve is trileaflet. * There is mild to moderate thickening of the right coronary aortic valve cusp. * No obvious vegetation or mobile echodensity visualized. * No aortic regurgitation is present. * No hemodynamically significant valvular aortic stenosis. * Ejection Fraction = 60-65%. * Mild atherosclerotic plaque(s) in the descending aorta. Vital Signs: Date Time Temp Pulse Resp B/P (MAP) Pulse Ox O2 Delivery O2 Flow Rate FiO2 01/13/17 08:00 Room Air 01/13/17 07:24 36.8 71 16 130/87 (101) 96 Room Air 01/13/17 00:00 Room Air 01/12/17 23:30 36.4 70 20 143/89 (107) 96 Room Air 01/12/17 16:05 36.9 82 20 133/82 (99) 95 Room Air 01/12/17 16:00 Room Air
[2017-01-13] MEDS ORDERED: KFL500 PO (13:18)
[2017-01-13 13:20] VITALS: BP 130/87; PULSE 71; TEMP 36.8; O2SAT 96
--- NOTE | 2017-01-13 13:20 | Discharge Summary ---
Discharge Summary Date of Service Jan 13, 2017. Discharge Summary Admission Date: Jan 08, 2017 at 18:22 Discharge Date: Jan 13, 2017 Discharge Disposition: Home Principal Diagnosis: Sepsis, Pyelonephritis, Bacteremia Procedures: ECHO: * There is a large 1.0 x 0.8cm echodensity attached to the left coronary cusp of the aortic valve. * Differential diagnosis includes, but not limited to, vegetation, thrombus, tumor, or focal calcification. * There is no significant aortic regurgitation. * Aortic stenosis is absent. * The left ventricular wall motion is normal. * Ejection Fraction = >70 %. EVELYNE: * The aortic valve is trileaflet. * There is mild to moderate thickening of the right coronary aortic valve cusp. * No obvious vegetation or mobile echodensity visualized. * No aortic regurgitation is present. * No hemodynamically significant valvular aortic stenosis. * Ejection Fraction = 60-65%. * Mild atherosclerotic plaque(s) in the descending aorta. CT ABD: 1. No evidence of bowel obstruction. No evidence of free air 2. Normal appendix. No evidence of acute diverticulitis 3. Bilateral renal cortical scarring 4. Right-sided nephrolithiasis 5. Subtle inhomogeneous enhancement of the left renal cortex. Subtle perinephric and periureteral edema on the left with minimal fullness of the left renal collecting system. Likely diagnostic considerations include pyelonephritis, or a recently passed calculus. Clinical correlation in this regard is advocated CXR: No acute cardiopulmonary disease. Consultations: ID, Cardiology, Urology Pending Studies/Follow-Up: Follow up with your Primary Care physician on 01/16/17 at 1:00pm Complete the antibiotic course as prescribed Seek immediate medical attention if your symptoms reoccur or worsen Medication Reconciliation New Medications: Cephalexin Monohydrate (Cephalexin) 500 Mg Cap 500 MG PO TID for 12 Days, #36 CAP Continued Medications: Albuterol Sulfate (Proair Respiclick) 108 Mcg/Act Aer 2-4 PUFFS INH Q4H PRN for Cough/Shortness Of Breath Cyanocobalamin (Vitamin B-12) 1,000 Mcg Tab 1000 MCG PO QAM, TAB Cyclobenzaprine Hcl (Flexeril) 10 Mg Tab 10 MG PO HS, TAB Cyclobenzaprine Hcl (Flexeril) 10 Mg Tab 5 MG PO QAM, TAB Dicyclomine HCl (Dicyclomine HCl) 20 Mg Tab 20 MG PO BID Epinephrine (Epipen) 0.3 Mg/0.3 Ml Inj 0.3 MG IM UD PRN for ALLERGIC REACTION Ferrous Sulfate (Ferrous Sulfate) 325 Mg Tab 325 MG PO DAILY Fluticasone Propionate (Fluticasone Propionate) 120 Sprays/6000 Mcg Inha 2 SPRAYS JERRY QAM PRN for Nasal Congestion Fluticasone Propionate (Inhala (Flovent Diskus) 250 Mcg/Blist Aer 1 PUFF INH BID Gabapentin (Gabapentin) 600 Mg Tab 600 MG PO TID Hydroxyzine Hcl (Atarax) 25 Mg Tab 75 MG PO HS, TAB Lamotrigine (Lamotrigine) 100 Mg Tab 200 MG PO QAM Levothyroxine Sodium (Levothyroxine Sodium) 50 Mcg Tab 50 MCG PO QAM Loratadine (Claritin) 10 Mg Tab 10 MG PO QAM, TAB Meloxicam (Mobic) 7.5 Mg Tab 15 MG PO DAILY Mupirocin 2% (Bactroban 2%) 30 Gm Cr 1 APPLN EXT UD, TUBE Norethin Acet & Estrad-Fe (Gildess Fe 1.09/11) 1 Tab Tab 1 TAB PO QAM Pantoprazole (Pantoprazole Sodium) 40 Mg Tab 40 MG PO QAM Prazosin Hcl (Prazosin) 2 Mg Cap 4 MG PO HS Rizatriptan Benzoate (Rizatriptan Benzoate) 10 Mg Tab 10 MG PO PRN for Pain ONCE TAKEN FOR MIGRAINE REPEAT EVERY 2HRS UP TO 2X. UP TO 3 TAB IN 24HRS Topiramate (Topamax) 100 Mg Tab 1 TAB PO BID for 30 Days, #60 TAB 1 Refill Venlafaxine Hcl (Effexor Extended Rel) 150 Mg Capcr 150 MG PO QAM Admission Information HPI (per Admitting provider): This is a 41yo F with a PMH of recurrent UTIs, h/o kidney stones, Bipolar II disorder, fibromyalgia and other problems listed below who presents with worsening abdominal pain as of this morning. Patient states that she has chronic abdominal pain and it has not yet been determined what causes this pain. However, upon waking up today her abdominal pain was more severe in character, described as a sharp 7/10 pain, with radiation from her lower abdomen down to her bladder and bilateral flank. Worse with urination. Also endorses nausea and dysuria. Denies fever, chills, vomiting, diarrhea, constipation. Also endorses a sharp, 6/10 central chest pain that began today. Is unsure if pain began when she was at rest or exerting herself. Describes pain as intermittent, starting as a sharp pain and then changing to a duller pain. No radiation to jaw or arm. Has also noted her "heart racing" on and off today. No history of CAD, [place]. + Family history of heart disease. Says that pain is not similar to the pain she experiences with acid reflux. Denies lightheadedness, dyspnea, SOB, palpitations, LE swelling. Physical Exam (per Admitting): General Appearance: WD/WN, no apparent distress Head: normocephalic, atraumatic Eyes: normal inspection, PERRL, sclerae normal ENT: hearing grossly normal Neck: supple, no adenopathy, thyroid normal, trachea midline Respiratory/Chest: chest non-tender, lungs clear, normal breath sounds, no respiratory distress, no accessory muscle use Cardiovascular: no murmur, normal peripheral pulses, + tachycardia Abdomen/GI: normal bowel sounds, soft, no organomegaly, + tenderness (TTP in RLQ, LLQ, suprapubic ) Back: normal inspection, + left CVA tenderness, + right CVA tenderness Extremities/Musculoskelatal: normal inspection, no calf tenderness, normal capillary refill, no pedal edema Neurologic/Psych: alert, normal mood/affect, oriented x 3 Skin: normal color, warm/dry, no rash Hospital Course Patient is a 41yr female with a PMH of recurrent UTIs, h/o kidney stones, Bipolar II disorder, fibromyalgia and other problems listed below who presents with worsening abdominal pain for one day duration Sepsis secondary to Pyelonephritis Bacteremia Endocarditis ruled out Leukocytosis resolved CT abd/pelvis with subtle perinephric and periureteral edema on L with minimal fullness of the L renal collecting system. R sided nephrolithiasis ECHO showed echodensity attached to the left coronary cusp of the aortic valve EVELYNE: No vegetation Continue Ceftriaxone for now Day # 5. Plan to switch to keflex 500mg po tid for 2 weeks from first negative culture, 01/10 Pain control Blood/Urine culture:E.coli Repeat Blood cultures: No growth to date Appreciate ID/Cardiology help DC IVF Atypical Chest pain: Resolved LV wall motion normal on ECHO Cardiac enzymes negative CXR-normal Lipid panel:wnl Appreciate cardiology Input QT prolongation in setting of Hypokalemia: Avoid QT prolonging meds monitor potassium levels Resolved H/o Asthma: Stable, no SOB Continued home inhalers Xopenex nebs PRN Fibromyalgia: Continue home dose gabapentin Bipolar II, anxiety: Stable Continue home meds Hypothyroidism: Continue synthroid DVT Ppx: Lovenox Code status: FULL PCP: Bill Dispo: Plan to discharge home today Follow up with your Primary Care physician on 01/16/17 at 1:00pm Complete the antibiotic course as prescribed Seek immediate medical attention if your symptoms reoccur or worsen PROCEDURES: ECHO: * There is a large 1.0 x 0.8cm echodensity attached to the left coronary cusp of the aortic valve. * Differential diagnosis includes, but not limited to, vegetation, thrombus, tumor, or focal calcification. * There is no significant aortic regurgitation. * Aortic stenosis is absent. * The left ventricular wall motion is normal. * Ejection Fraction = >70 %. EVELYNE: * The aortic valve is trileaflet. * There is mild to moderate thickening of the right coronary aortic valve cusp. * No obvious vegetation or mobile echodensity visualized. * No aortic regurgitation is present. * No hemodynamically significant valvular aortic stenosis. * Ejection Fraction = 60-65%. * Mild atherosclerotic plaque(s) in the descending aorta. Total time spent on discharge = 34 minutes This includes examination of the patient, discharge planning, medication reconciliation, and communication with other providers. Discharge Instructions Discharge Instructions Date of Service Jan 13, 2017. Admission Reason for Admission: Pyelonephritis, Tachycardia Discharge Discharge Diagnosis / Problem: Sepsis, Pyelonephritis, Bacteremia Discharge Goals Goal(s): Decrease discomfort, Improve function Activity Recommendations Activity Limitations: resume your previous activity Exercise/Sports Limitations: as tolerated . Instructions / Follow-Up Instructions / Follow-Up Follow up with your Primary Care physician on 01/16/17 at 1:00pm Complete the antibiotic course as prescribed Seek immediate medical attention if your symptoms reoccur or worsen Current Hospital Diet Patient's current hospital diet: AHA Diet (Heart Healthy) Discharge Diet Recommended Diet: AHA Diet (Heart Healthy) Pending Studies Studies pending at discharge: no Laboratory Results Lipid Panel Test 01/09/17 05:11 Range/Units Triglycerides Level 123 0-150 mg/dl Cholesterol Level 135 0-200 mg/dl HDL Cholesterol 42 mg/dl Cholesterol/HDL Ratio 3.2 LDL Cholesterol, Calculated 68 mg/dl Medical Emergencies . Who to Call and When: Medical Emergencies: If at any time you feel your situation is an emergency, please call 911 immediately. . Non-Emergent Contact Non-Emergency issues call your: Primary Care Provider Call Non-Emergent contact if: you have a fever, your pain is not controlled, your pain is worsening, your pain is unusual for you, your pain is concerning you, you have any medication questions Seek immediate medical attention if your symptoms reoccur or worsen . . "Provider Documentation" section prepared by Jose Escalera. . VTE Core Measure Inpt VTE Proph given/why not?: Enoxaparin (Lovenox)SQ <Electronically signed by Jose Escalera MD> Signed: 01/13/17 1319 Signed: The status of this report is Signed * If report status is Draft, the document has not been finalized by the responsible provider.
[2017-01-13] MEDS ORDERED: CEPHALEXIN MONOHYDRATE 500 MG CAP PO SCH (14:00)
== END 2017-01-13 16:30 | disposition home or self-care (01) | DRG 872 ==
LOC: C.EDB 13:45 → C.MED 18:22 → ENRESERV 18:40
PROVIDERS: ADMIT Internal Medicine; ATTEND Internal Medicine
DX: A41.51 Sepsis due to Escherichia coli [E. coli] (principal); N12 Tubulo-interstitial nephritis, not specified as acute or chronic; F31.81 Bipolar II disorder; N39.0 Urinary tract infection, site not specified; A49.8 Other bacterial infections of unspecified site; F41.9 Anxiety disorder, unspecified; I10 Essential (primary) hypertension; J45.909 Unspecified asthma, uncomplicated; M79.7 Fibromyalgia; E03.9 Hypothyroidism, unspecified; Z87.440 Personal history of urinary (tract) infections; Z90.49 Acquired absence of other specified parts of digestive tract; Z83.3 Family history of diabetes mellitus; Z80.9 Family history of malignant neoplasm, unspecified; Z82.49 Family history of ischemic heart disease and other diseases of the circulatory system

== ENCOUNTER 2017-01-27 13:37 | Emergency (ER) | payer OTHER ==
[~2017-01-27] VITALS: Ht 162.6 cm; Wt 95.4 kg
[~2017-01-27 13:37] MED LIST changes: +BCTCR/30 EXT; +HYDR-3124 PO; -IMT100 PO; +KFL500 PO; +RIZA1TAB7 PO; +TOPI100T34 PO; -TOPI200T14 PO; -VST25HP PO
[2017-01-27 13:43] VITALS: TEMP 37.1; Ht 162.6 cm; Wt 95.4 kg
[2017-01-27] MEDS ORDERED: SODIUM CHLORIDE 0.9% 1000ML 1,000 ML IV STA (14:15)
[2017-01-27] MEDS ORDERED: ONDANSETRON INJ 2 MG/ML 2 ML VIAL IV STA (14:15)
[2017-01-27] MEDS ORDERED: CEFTRIAXONE SOD INJ 1 GM ADDVIAL IV STA (14:18)
[2017-01-27 14:28] LABS: URINE APPEARANCE CLOUDY (CLEAR); URINE BILIRUBIN NEG (NEG); URINE COLOR DK YELLOW; URINE EPITHELIAL CELL AUTO >30 /lpf (0-5); URINE NITRITE NEG (NEG); URINE SPECIFIC GRAVITY 1.028 (1.000-1.030); UROBILINOGEN NEG (NEG)
--- NOTE | 2017-01-27 14:28 | EMERGENCY ROOM VISIT NOTE ---
History Report prepared by Antonieta: Britni Rogers Under the Supervision of: Dr. Hilario Peterson D.O. First contact with patient: 14:10 Chief Complaint: URINARY SYMPTOMS Stated Complaint: HURTS/AARON WHEN URINATING, ABD./CHEST PAIN Nursing Triage Summary: Patient states "It hurts when I urinate and I have abdominal pain and back pain. I was diagnosed with an UTI that went into my kidneys on Jan 08 and was here until Jan 13. I just finished my antibiotics on Saturday." History of Present Illness The patient is a 41 year old female who presents to the Emergency Room with complaints of worsening dysuria starting 2 days ago. The patient had a UTI which went into her left kidney 3 weeks ago. She was on a 12 day course of Keflex which she finished 2 days ago. She had some improvement, but she is having worsening dysuria again. She had some hematuria last night. She also complains of abdominal pain and back pain which is mostly in her left side. She also notes chest pain, chills, sweats, nausea, and shaking. She denies any fever or vomiting. She was told that she has a kidney stone in her right kidney 3 weeks ago which she is unsure if she has passed. Her last menstrual period was 2 weeks ago which was normal timing. Source of History: patient Onset: 2 days ago Position: other (global) Quality: other (dysuria) Timing: worsening Associated Symptoms: + chills, + diaphoresis, + chest pain, + nausea, + abdominal pain, + back pain, No fevers, No vomiting Review of Systems See HPI for pertinent positives & negatives. A total of 10 systems reviewed and were otherwise negative. Past Medical & Surgical Medical Problems: (1) Anxiety (2) Asthma (3) Bipolar II disorder (4) E. coli septicemia (5) Fibromyalgia (6) Gram negative septicemia (7) H/O migraine (8) H/O renal calculi (9) H/O urinary tract infection (10) History of low back pain (11) Hypothyroidism Surgical Problems: (1) S/P cholecystectomy Social History Problems: (1) Anxiety State Nos (2) Asthma, Unspecified (3) Migraine Unspecified W/O Intractable Migraine (4) Pancreatitis Family History Diabetes mellitus FH: cancer FH: heart disease FH: lung disease FHx: gallbladder disease Kidney disease or stones Social History Smoking Status: Never Smoker Alcohol Use: none Drug Use: none Marital Status: single Housing Status: lives with family Occupation Status: disabled Current/Historical Medications Scheduled Cephalexin Monohydrate (Keflex), 500 MG PO QID Cyanocobalamin (Vitamin B-12), 1,000 MCG PO QAM Cyclobenzaprine Hcl (Flexeril), 10 MG PO HS Cyclobenzaprine Hcl (Flexeril), 5 MG PO QAM Dicyclomine HCl (Dicyclomine HCl), 20 MG PO BID Ferrous Sulfate (Ferrous Sulfate), 325 MG PO DAILY Fluticasone Propionate (Inhala (Flovent Diskus), 1 PUFF INH BID Gabapentin (Gabapentin), 600 MG PO TID Hydroxyzine Hcl (Atarax), 75 MG PO HS Lamotrigine (Lamotrigine), 200 MG PO QAM Levothyroxine Sodium (Levothyroxine Sodium), 50 MCG PO QAM Loratadine (Claritin), 10 MG PO QAM Meloxicam (Mobic), 15 MG PO DAILY Mupirocin 2% (Bactroban 2%), 1 APPLN EXT UD Norethin Acet & Estrad-Fe (Gildess Fe ), 1 TAB PO QAM Pantoprazole (Pantoprazole Sodium), 40 MG PO QAM Prazosin Hcl (Prazosin), 4 MG PO HS Sulfa/Trimethoprim (Bactrim Ds 800MG/160MG), 1 TAB PO BID Topiramate (Topamax), 1 TAB PO BID Venlafaxine Hcl (Effexor Extended Rel), 150 MG PO QAM Scheduled PRN Albuterol Sulfate (Proair Respiclick), 2-4 PUFFS INH Q4H PRN for Cough/ Shortness Of Breath Epinephrine (Epipen), 0.3 MG IM UD PRN for ALLERGIC REACTION Fluticasone Propionate (Fluticasone Propionate), 2 SPRAYS JERRY QAM PRN for Nasal Congestion Rizatriptan Benzoate (Rizatriptan Benzoate), 10 MG PO for Pain Allergies Coded Allergies: BEE STING (Verified Allergy, Severe, ANAPHYLAXIS, 01/27/17) Morphine (Verified Adverse Reaction, Intermediate, HALLUCINATIONS, ) Physical Exam Vital Signs Date Time Temp Pulse Resp B/P (MAP) Pulse Ox O2 Delivery O2 Flow Rate FiO2 10/15/17 17:10 70 20 132/94 100 01/27/17 16:08 82 20 139/88 97 Room Air 01/27/17 15:11 84 20 146/97 94 01/27/17 13:43 37.1 97 18 153/96 97 Room Air Physical Exam GENERAL: Patient is awake, alert, mildly anxious appearing, and uncomfortable. EYES: The conjunctivae are clear. The pupils are round and reactive. EARS, NOSE, MOUTH AND THROAT: The nose is without any evidence of any deformity. Mucous membranes are moist tongue is midline NECK: The neck is nontender and supple. RESPIRATORY: Normal respiratory effort is noted there is no evidence of wheezing rhonchi or rales CARDIOVASCULAR: Regular rate and rhythm noted there no murmurs rubs or gallops normal S1 normal S2 GASTROINTESTINAL: The abdomen is soft. Bowel sounds are present in all quadrants. Abdomen is nontender BACK: Left CVA tenderness to percussion. No midline tenderness noted. ROM appears intact. MUSCULOSKELETAL/EXTREMITIES: There is no evidence of gross deformity full range of motion is noted in the hips and shoulders SKIN: There is no obvious evidence of any rash. There are no petechiae, pallor or cyanosis noted. NEUROLOGIC: Patient is awake alert and oriented x3 strength is symmetric patellar reflexes are 2+ bilaterally Medical Decision & Procedures ER Provider Diagnostic Interpretation: X-ray results as stated below per interpretation by me and the radiologist. Radiology results as stated below per my review and radiologist interpretation: CHEST ONE VIEW PORTABLE HISTORY: Generalized abdominal pain. COMPARISON: Chest 01/08/2017. FINDINGS: Questionable left perihilar nodule is likely due to the overlapping ribs and normal pulmonary vessels. The lungs appear clear. The heart is stable in size. No pleural effusions. No pneumothorax. IMPRESSION: No acute process. Electronically signed by: Adair Bennett M.D. 01/27/2017 2:40 PM Dictated Date/Time: 01/27/2017 2:39 PM RENAL ULTRASOUND CLINICAL HISTORY: Left flank pain. COMPARISON STUDY: CT of the abdomen and pelvis January 08, 2017. TECHNIQUE: Sonography of the kidneys and the urinary bladder was performed. FINDINGS: The right kidney measures 11.5 cm in maximal dimension and the left measures 12.1 cm. Incidental note is made of a 1.6 cm anechoic right renal lesion consistent with a cyst. There is mild bilateral pelvicaliectasis without riley hydronephrosis. The bladder is decompressed. The right renal calculus shown on CT of January 08, 2017 is not visualized on this exam, possibly due to technique. IMPRESSION: Mild bilateral pelvicaliectasis without riley hydronephrosis. Electronically signed by: Saud Espinosa M.D. 01/27/2017 3:55 PM Dictated Date/Time: 01/27/2017 3:52 PM Laboratory Results 01/27/17 14:50 Red Blood Count 3.87, Mean Corpuscular Volume 88.6, Mean Corpuscular Hemoglobin 29.7, Mean Corpuscular Hemoglobin Concent 33.5, Mean Platelet Volume 8.6, Neutrophils (%) (Auto) 62.4, Lymphocytes (%) (Auto) 26.2, Monocytes (%) (Auto) 8.1, Eosinophils (%) (Auto) 1.9, Basophils (%) (Auto) 0.6, Neutrophils # (Auto) 5.58, Lymphocytes # (Auto) 2.34, Monocytes # (Auto) 0.72, Eosinophils # (Auto) 0.17, Basophils # (Auto) 0.05 01/27/17 14:50 Test 01/27/17 14:09 01/27/17 14:50 01/27/17 16:34 Urine Color DK YELLOW Urine Appearance CLOUDY (CLEAR) Urine pH 5.0 (4.5-7.5) Urine Specific [place] 1.028 (1.000-1.030) Urine Protein TRACE (NEG) Urine Glucose (UA) NEG (NEG) Urine Ketones TRACE (NEG) Urine Occult Blood 1+ (NEG) Urine Nitrite NEG (NEG) Urine Bilirubin NEG (NEG) Urine Urobilinogen NEG (NEG) Urine Leukocyte Esterase LARGE (NEG) Urine WBC (Auto) >30 /hpf (0-5) Urine RBC (Auto) 5-10 /hpf (0-4) Urine Hyaline Casts (Auto) /lpf (0-5) Urine Epithelial Cells (Auto) >30 /lpf (0-5) Urine Bacteria (Auto) NEG (NEG) Urine Pathogenic Casts /lpf (0) Urine Yeast (Auto) BUD W/ HYPHAE (NONE PRSENT) White Blood Count 8.93 K/uL (4.8-10.8) Red Blood Count 3.87 M/uL (4.2-5.4) Hemoglobin 11.5 g/dL (12.0-16.0) Hematocrit 34.3 % (37-47) Mean Corpuscular Volume 88.6 fL (80-100) Mean Corpuscular Hemoglobin 29.7 pg (25-34) Mean Corpuscular Hemoglobin Concent 33.5 g/dl (32-36) Platelet Count 341 K/uL (130-400) Mean Platelet Volume 8.6 fL (7.4-10.4) Neutrophils (%) (Auto) 62.4 % Lymphocytes (%) (Auto) 26.2 % Monocytes (%) (Auto) 8.1 % Eosinophils (%) (Auto) 1.9 % Basophils (%) (Auto) 0.6 % Neutrophils # (Auto) 5.58 K/uL (1.4-6.5) Lymphocytes # (Auto) 2.34 K/uL (1.2-3.4) Monocytes # (Auto) 0.72 K/uL (0.11-0.59) Eosinophils # (Auto) 0.17 K/uL (0-0.5) Basophils # (Auto) 0.05 K/uL (0-0.2) RDW Standard Deviation 41.5 fL (36.4-46.3) RDW Coefficient of Variation 13.0 % (11.5-14.5) Immature Granulocyte % (Auto) 0.8 % Immature Granulocyte # (Auto) 0.07 K/uL (0.00-0.02) Erythrocyte Sedimentation Rate 18 mm/hr (0-21) Anion Gap 10.0 mmol/L (3-11) Est Creatinine Clear Calc Drug Dose 91.4 ml/min Estimated GFR () 92.0 Estimated GFR (Non- 79.4 BUN/Creatinine Ratio 21.4 (10-20) Calcium Level 8.4 mg/dl (8.5-10.1) Total Bilirubin 0.3 mg/dl (0.2-1) Direct Bilirubin < 0.1 mg/dl (0-0.2) Aspartate Amino Transf (AST/SGOT) 11 U/L (15-37) Alanine Aminotransferase (ALT/SGPT) 21 U/L (12-78) Alkaline Phosphatase 51 U/L (45-117) Total Creatine Kinase 33 U/L (26-192) Creatine Kinase MB 0.5 ng/ml (0.5-3.6) Creatine Kinase MB Ratio 1.5 (0-3.0) Troponin I < 0.015 ng/ml (0-0.045) C-Reactive Protein 1.09 mg/dl (0-0.29) Total Protein 7.2 gm/dl (6.4-8.2) Albumin 3.5 gm/dl (3.4-5.0) Lipase 192 U/L (73-393) Human Chorionic Gonadotropin, Qual NEG (NEG) Prothrombin Time 11.0 SECONDS (9.0-12.0) Prothromb Time International Ratio 1.0 (0.9-1.1) Activated Partial Thromboplast Time 22.9 SECONDS (21.0-31.0) Partial Thromboplastin Ratio 0.9 Laboratory results per my review. Medications Administered Medications (Trade) Dose Ordered Sig/Shelli Route Start Time Stop Time Status Last Admin Dose Admin Sodium Chloride 1,000 ml @ 999 mls/hr Q1H1M STAT IV 01/27/17 14:15 01/27/17 15:15 DC 01/27/17 15:08 999 MLS/HR Ondansetron HCl (Zofran Inj) 4 mg NOW STAT IV 01/27/17 14:15 01/27/17 14:17 DC 01/27/17 15:08 4 MG Ceftriaxone Sodium (Rocephin Inj) 1 gm NOW STAT IV 01/27/17 14:18 01/27/17 14:19 DC 01/27/17 15:08 1 GM ECG Indication: chest pain Rate (beats per minute): 89 Rhythm: normal sinus Findings: no ectopy, other (no acute ST segment abnormality) Comparison ECG Date: 10-Jan-2017 Change: no significant change ED Course 1414: The patient was evaluated in room B4B. A complete history and physical examination were performed. 1415: Zofran Inj 4 mg IV, NSS 1000 ml @ 999 mls/hr IV. 1418: Rocephin Inj 1 gm IV. 1650: Upon reevaluation, the patient is resting comfortably. I discussed the results and treatment plan with her. She verbalized agreement of the treatment plan. She was discharged home. Medical Decision Prior records/ancillary studies reviewed. Triage Nursing notes reviewed. The patient's history was concerning for flank pain. Differential diagnosis: Etiologies such as renal colic, appendicitis, diverticulitis, mesenteric ischemia, aortic pathology, infections, inflammatory bowel disease, PUD, biliary pathology, UTI, as well as others were entertained. The patient is a 41-year-old female who was recently admitted to our facility for a urinary tract infection. The patient was sent home on an antibiotic and finished a course the antibiotic but her symptoms returned turned over the last few days. The patient did not appear septic. The patient was treated with IV fluids and IV antibiotics in the emergency department. I reviewed the patient's previous electronic medical records as well as her previous urine culture. She was started on an antibiotic that would be appropriate given the patient's recent culture. Because of her return visit at this time she was also started on a second antibiotic. She was encouraged to drink plenty clear liquids. She was also encouraged to follow-up with her primary care physician as well as the urologist this week. She was also encouraged to return to the emergency department immediately if symptoms change worsen or the need arises. Medication Reconcilliation Current Medication List: was personally reviewed by me Blood Pressure Screening Patient's blood pressure: Elevated blood pressure Blood pressure disposition: Elevated BP felt to be situational Impression Primary Impression: Urinary tract infection Scribe Attestation The scribe's documentation has been prepared under my direction and personally reviewed by me in its entirety. I confirm that the note above accurately reflects all work, treatment, procedures, and medical decision making performed by me. Departure Information Dispostion Home / Self-Care Prescriptions Sulfa/Trimethoprim (Bactrim Ds 800MG/160MG) Tab 1 TAB PO BID, #14 TAB Prov: Hilario Peterson, DO 01/27/17 Cephalexin Monohydrate (KEFLEX) 500 Mg Cap 500 MG PO QID, #28 CAP Prov: Hilario Peterson, DO 01/27/17 Referrals Dennis Khan M.D., Jennifer ., MD Forms HOME CARE DOCUMENTATION FORM, IMPORTANT VISIT INFORMATION Patient Instructions My [facility], Urinary Tract Infecs Women Additional Instructions Drink plenty clear liquids. Continue all medications as prescribed. Call the urologist in the morning to schedule a follow-up appointment. Problem Qualifiers Primary Impression: Urinary tract infection Urinary tract infection type: site unspecified Hematuria presence: without hematuria Qualified Codes: N39.0 - Urinary tract infection, site not specified
[2017-01-27 14:30] LABS: MANUAL MICROSCOPIC REQUIRED? NO; REVIEW REQ? YES
--- NOTE | 2017-01-27 14:42 | DIAGNOSTIC IMAGING REPORT ---
CHEST ONE VIEW PORTABLE HISTORY: Generalized abdominal pain. COMPARISON: Chest 01/08/2017. FINDINGS: Questionable left perihilar nodule is likely due to the overlapping ribs and normal pulmonary vessels. The lungs appear clear. The heart is stable in size. No pleural effusions. No pneumothorax. IMPRESSION: No acute process. Electronically signed by: Adair Bennett M.D. 01/27/2017 2:40 PM Dictated Date/Time: 01/27/2017 2:39 PM
[2017-01-27 15:04] LABS: BASO % 0.6 %; BASO ABS # 0.05 K/uL (0-0.2); COMPLETE YES; EOS % 1.9 %; HEMATOCRIT 34.3 % (37-47); IG% 0.8 %; LYMPH % 26.2 %; LYMPH ABS # 2.34 K/uL (1.2-3.4); MEAN CELL VOLUME 88.6 fL (80-100); MEAN CORPUSCULAR HEMOGLOBIN 29.7 pg (25-34); MEAN CORPUSCULAR HGB CONC 33.5 g/dl (32-36); MEAN PLATELET VOLUME 8.6 fL (7.4-10.4); MONO % 8.1 %; NEUT % 62.4 %; PLATELET COUNT 341 K/uL (130-400); RED BLOOD COUNT 3.87 M/uL (4.2-5.4); WHITE BLOOD COUNT 8.93 K/uL (4.8-10.8)
[2017-01-27 15:17] LABS: PREG INTERNAL NEGATIVE QC NEG CLEAR BACKGROUND; PREG INTERNAL POSITIVE QC POS CONTROL LINE
[2017-01-27 15:27] LABS: ALT/SGPT 21 U/L (12-78); AST/SGOT 11 U/L (15-37); BLOOD UREA NITROGEN 19 mg/dl (7-18); BUN/CREATININE RATIO 21.4 (10-20); CALCIUM 8.4 mg/dl (8.5-10.1); CARBON DIOXIDE 20 mmol/L (21-32); CHLORIDE 110 mmol/L (98-107); CREATININE 0.89 mg/dl (0.60-1.20); GLUCOSE 88 mg/dl (70-99); POTASSIUM 3.9 mmol/L (3.5-5.1); SODIUM 140 mmol/L (136-145)
[2017-01-27 15:30] LABS: ALKALINE PHOSPHATASE 51 U/L (45-117); C-REACTIVE PROTEIN 1.09 mg/dl (0-0.29); CKMB/CK RATIO 1.5 (0-3.0)
--- NOTE | 2017-01-27 15:56 | DIAGNOSTIC IMAGING REPORT ---
RENAL ULTRASOUND CLINICAL HISTORY: Left flank pain. COMPARISON STUDY: CT of the abdomen and pelvis January 08, 2017. TECHNIQUE: Sonography of the kidneys and the urinary bladder was performed. FINDINGS: The right kidney measures 11.5 cm in maximal dimension and the left measures 12.1 cm. Incidental note is made of a 1.6 cm anechoic right renal lesion consistent with a cyst. There is mild bilateral pelvicaliectasis without riley hydronephrosis. The bladder is decompressed. The right renal calculus shown on CT of January 08, 2017 is not visualized on this exam, possibly due to technique. IMPRESSION: Mild bilateral pelvicaliectasis without riley hydronephrosis. Electronically signed by: Saud Espinosa M.D. 01/27/2017 3:55 PM Dictated Date/Time: 01/27/2017 3:52 PM
[2017-01-27] MEDS ORDERED: CEPH500C2 PO (16:47)
[2017-01-27] MEDS ORDERED: SULF800T23 PO (16:47)
[2017-01-27 16:59] LABS: PARTIAL THROMBOPLASTIN RATIO 0.9
[2017-01-27 17:10] VITALS: BP 132/94; PULSE 70; O2SAT 100
== END 2017-01-27 17:39 | disposition home or self-care (01) ==
LOC: C.EDB 13:38
DX: N39.0 Urinary tract infection, site not specified (principal); E03.9 Hypothyroidism, unspecified; J45.909 Unspecified asthma, uncomplicated; K86.1 Other chronic pancreatitis; F31.9 Bipolar disorder, unspecified; F41.9 Anxiety disorder, unspecified; Z87.440 Personal history of urinary (tract) infections; Z87.442 Personal history of urinary calculi; Z86.19 Personal history of other infectious and parasitic diseases; Z90.49 Acquired absence of other specified parts of digestive tract; Z79.899 Other long term (current) drug therapy; Z88.5 Allergy status to narcotic agent; Z91.030 Bee allergy status; Z83.3 Family history of diabetes mellitus; Z80.9 Family history of malignant neoplasm, unspecified; Z82.49 Family history of ischemic heart disease and other diseases of the circulatory system; Z83.79 Family history of other diseases of the digestive system; Z84.1 Family history of disorders of kidney and ureter

== ENCOUNTER 2017-02-02 23:39 | Emergency (ER) | payer OTHER ==
[~2017-02-02] VITALS: Ht 162.6 cm; Wt 95.0 kg
[~2017-02-02 23:39] MED LIST changes: +CEPH500C2 PO; -KFL500 PO; +SULF800T23 PO
[2017-02-03 00:01] VITALS: TEMP 37.3; Ht 162.6 cm; Wt 95.0 kg
[2017-02-03] MEDS ORDERED: ONDANSETRON INJ 2 MG/ML 2 ML VIAL IV STA (00:37)
[2017-02-03] MEDS ORDERED: KETOROLAC TROMETHAMINE 30 MG/ML VIAL IV STA (00:37)
[2017-02-03] MEDS ORDERED: SODIUM CHLORIDE 0.9% 1000ML 1,000 ML IV STA ×2 (00:37→03:33)
[2017-02-03 00:41] VITALS: O2SAT 96
--- NOTE | 2017-02-03 00:41 | EMERGENCY ROOM VISIT NOTE ---
History Report prepared by Antonieta: Fara Alberto Under the Supervision of: Dr. Miller Raymond M.D. First contact with patient: 00:27 Chief Complaint: CHEST PAIN Stated Complaint: CHEST PAIN Nursing Triage Summary: Patient reports being treated for a recent kidney infection and blood infection. Patient reports 9/10 chest pain that radiates to the R arm. History of Present Illness The patient is a 41 year old female who presents to the Emergency Room with complaints of chest pain beginning 6 hours ago. The patient was recently in the ED for a UTI that went to her kidneys and she was discharged January 13. She was also seen a week ago and was given antibiotics for another UTI and a yeast infection. The patient states that she followed up with her PCP. She notes having cold/hot flashes and nausea but denies any fever or vomiting. The patient states she has fibromyalgia which manifests itself as a body aches. Source of History: patient Onset: 6 hours ago Position: chest Timing: constant Associated Symptoms: + nausea, No fevers, No chills Review of Systems See HPI for pertinent positives and negatives. A total of ten systems were reviewed and were otherwise negative. Past Medical & Surgical Medical Problems: (1) Anxiety (2) Asthma (3) Bipolar II disorder (4) E. coli septicemia (5) Fibromyalgia (6) Gram negative septicemia (7) H/O migraine (8) H/O renal calculi (9) H/O urinary tract infection (10) History of low back pain (11) Hypothyroidism Surgical Problems: (1) S/P cholecystectomy Social History Problems: (1) Anxiety State Nos (2) Asthma, Unspecified (3) Migraine Unspecified W/O Intractable Migraine (4) Pancreatitis Family History Diabetes mellitus FH: cancer FH: heart disease FH: lung disease FHx: gallbladder disease Kidney disease or stones Social History Smoking Status: Current Some Day Smoker Alcohol Use: none Drug Use: none Marital Status: single Housing Status: lives with family Occupation Status: disabled Current/Historical Medications Scheduled Cyanocobalamin (Vitamin B-12), 1,000 MCG PO QAM Cyclobenzaprine Hcl (Flexeril), 10 MG PO HS Cyclobenzaprine Hcl (Flexeril), 5 MG PO QAM Dicyclomine HCl (Dicyclomine HCl), 20 MG PO BID Ferrous Sulfate (Ferrous Sulfate), 325 MG PO DAILY Fluticasone Propionate (Inhala (Flovent Diskus), 1 PUFF INH BID Gabapentin (Gabapentin), 600 MG PO TID Hydroxyzine Hcl (Atarax), 75 MG PO HS Lamotrigine (Lamotrigine), 200 MG PO QAM Levothyroxine Sodium (Levothyroxine Sodium), 50 MCG PO QAM Loratadine (Claritin), 10 MG PO QAM Meloxicam (Mobic), 15 MG PO DAILY Mupirocin 2% (Bactroban 2%), 1 APPLN EXT UD Norethin Acet & Estrad-Fe (Gildess Fe ), 1 TAB PO QAM Pantoprazole (Pantoprazole Sodium), 40 MG PO QAM Prazosin Hcl (Prazosin), 4 MG PO HS Topiramate (Topamax), 1 TAB PO BID Venlafaxine Hcl (Effexor Extended Rel), 150 MG PO QAM Scheduled PRN Albuterol Sulfate (Proair Respiclick), 2-4 PUFFS INH Q4H PRN for Cough/ Shortness Of Breath Epinephrine (Epipen), 0.3 MG IM UD PRN for ALLERGIC REACTION Fluticasone Propionate (Fluticasone Propionate), 2 SPRAYS JERRY QAM PRN for Nasal Congestion Rizatriptan Benzoate (Rizatriptan Benzoate), 10 MG PO for Pain Allergies Coded Allergies: BEE STING (Verified Allergy, Severe, ANAPHYLAXIS, 02/03/17) Morphine (Verified Adverse Reaction, Intermediate, HALLUCINATIONS, ) Physical Exam Vital Signs Date Time Temp Pulse Resp B/P (MAP) Pulse Ox O2 Delivery O2 Flow Rate FiO2 02/03/17 04:56 64 16 131/80 98 02/03/17 03:06 87 02/03/17 02:54 94 22 02/03/17 02:04 87 18 02/03/17 01:14 90 15 02/03/17 01:09 95 15 02/03/17 00:41 96 Room Air 02/03/17 00:24 102 20 94 02/03/17 00:01 135/95 02/03/17 00:01 37.3 97 18 133/91 96 Room Air 02/02/17 23:59 98 Room Air 02/02/17 23:58 102 02/02/17 23:54 133/91 Physical Exam GENERAL: Awake, alert, fatigued-appearing, in no distress HENT: Normocephalic, atraumatic. Oropharynx unremarkable. Dry MM. EYES: Normal conjunctiva. Sclera non-icteric. NECK: Supple. No nuchal rigidity. FROM. No JVD. RESPIRATORY: Clear to auscultation. CARDIAC: Regular rate, normal rhythm. Extremities warm and well perfused. Pulses equal. ABDOMEN: Mild epigastric discomfort, soft, non-distended. No rebound or guarding. No masses. RECTAL: Deferred. MUSCULOSKELETAL: Reproducible chest pain on palpation. The back is symmetrical on inspection without obvious abnormality. There is no CVA tenderness to palpation. No joint edema. LOWER EXTREMITIES: Calves are equal size bilaterally and non-tender. No edema. No discoloration. NEURO: Normal sensorium. No sensory or motor deficits noted. SKIN: No rash or jaundice noted. Medical Decision & Procedures ER Provider Diagnostic Interpretation: Radiology results as stated below per my review and radiologist interpretation: Chest X-ray: clear lungs Laboratory Results 02/02/17 23:59 Red Blood Count 4.09, Mean Corpuscular Volume 89.5, Mean Corpuscular Hemoglobin 30.3, Mean Corpuscular Hemoglobin Concent 33.9, Mean Platelet Volume 8.8, Neutrophils (%) (Auto) 52.9, Lymphocytes (%) (Auto) 36.7, Monocytes (%) (Auto) 7.2, Eosinophils (%) (Auto) 1.9, Basophils (%) (Auto) 0.5, Neutrophils # (Auto) 5.04, Lymphocytes # (Auto) 3.50, Monocytes # (Auto) 0.69, Eosinophils # (Auto) 0.18, Basophils # (Auto) 0.05 02/02/17 23:59 Test 02/02/17 23:59 02/03/17 03:49 White Blood Count 9.54 K/uL (4.8-10.8) Red Blood Count 4.09 M/uL (4.2-5.4) Hemoglobin 12.4 g/dL (12.0-16.0) Hematocrit 36.6 % (37-47) Mean Corpuscular Volume 89.5 fL (80-100) Mean Corpuscular Hemoglobin 30.3 pg (25-34) Mean Corpuscular Hemoglobin Concent 33.9 g/dl (32-36) Platelet Count 316 K/uL (130-400) Mean Platelet Volume 8.8 fL (7.4-10.4) Neutrophils (%) (Auto) 52.9 % Lymphocytes (%) (Auto) 36.7 % Monocytes (%) (Auto) 7.2 % Eosinophils (%) (Auto) 1.9 % Basophils (%) (Auto) 0.5 % Neutrophils # (Auto) 5.04 K/uL (1.4-6.5) Lymphocytes # (Auto) 3.50 K/uL (1.2-3.4) Monocytes # (Auto) 0.69 K/uL (0.11-0.59) Eosinophils # (Auto) 0.18 K/uL (0-0.5) Basophils # (Auto) 0.05 K/uL (0-0.2) RDW Standard Deviation 42.4 fL (36.4-46.3) RDW Coefficient of Variation 13.1 % (11.5-14.5) Immature Granulocyte % (Auto) 0.8 % Immature Granulocyte # (Auto) 0.08 K/uL (0.00-0.02) Urine Color YELLOW Urine Appearance CLOUDY (CLEAR) Urine pH 5.5 (4.5-7.5) Urine Specific [place] 1.031 (1.000-1.030) Urine Protein NEG (NEG) Urine Glucose (UA) NEG (NEG) Urine Ketones NEG (NEG) Urine Occult Blood 1+ (NEG) Urine Nitrite NEG (NEG) Urine Bilirubin NEG (NEG) Urine Urobilinogen NEG (NEG) Urine Leukocyte Esterase MODERATE (NEG) Urine WBC (Auto) >30 /hpf (0-5) Urine RBC (Auto) 10-30 /hpf (0-4) Urine Hyaline Casts (Auto) 0 /lpf (0-5) Urine Epithelial Cells (Auto) >30 /lpf (0-5) Urine Bacteria (Auto) NEG (NEG) Urine Renal Epithelial Cells 5-10 /lpf (0-5) Urine Crystals CALCIUM OXALATE (NONE Urine Pathogenic Casts /lpf (0) Anion Gap 7.0 mmol/L (3-11) Est Creatinine Clear Calc Drug Dose 85.4 ml/min Estimated GFR () 85.0 Estimated GFR (Non- 73.4 BUN/Creatinine Ratio 19.9 (10-20) Calcium Level 8.5 mg/dl (8.5-10.1) Total Bilirubin 0.3 mg/dl (0.2-1) Direct Bilirubin < 0.1 mg/dl (0-0.2) Aspartate Amino Transf (AST/SGOT) 9 U/L (15-37) Alanine Aminotransferase (ALT/SGPT) 18 U/L (12-78) Alkaline Phosphatase 51 U/L (45-117) Pro-B-Type Natriuretic Peptide 33 pg/ml (0-450) Total Protein 7.9 gm/dl (6.4-8.2) Albumin 3.6 gm/dl (3.4-5.0) Lipase 181 U/L (73-393) Troponin I < 0.015 ng/ml (0-0.045) Laboratory results reviewed by me Medications Administered Medications (Trade) Dose Ordered Sig/Shelli Route Start Time Stop Time Status Last Admin Dose Admin Sodium Chloride 1,000 ml @ 999 mls/hr Q1H1M STAT IV 02/03/17 00:37 02/03/17 01:37 DC 02/03/17 00:37 999 MLS/HR Ondansetron HCl (Zofran Inj) 4 mg NOW STAT IV 02/03/17 00:37 02/03/17 00:40 DC 02/03/17 00:37 4 MG Ketorolac Tromethamine (Toradol Inj) 30 mg NOW STAT IV 02/03/17 00:37 02/03/17 00:40 DC 02/03/17 00:37 30 MG Famotidine (Pepcid 20mg/100 ml) 20 mg ONE STAT IV 02/03/17 02:46 02/03/17 02:48 DC 02/03/17 02:46 20 MG Lidocaine HCl (Viscous Lidocaine 2% Soln) 20 ml STK-MED ONCE .ROUTE 02/03/17 02:49 02/03/17 02:50 DC 02/03/17 02:49 10 ML Al Hydroxide/Mg Hydroxide (Maalox Susp) 30 ml STK-MED ONCE .ROUTE 02/03/17 02:49 02/03/17 02:50 DC 02/03/17 02:49 30 ML Sodium Chloride 1,000 ml @ 999 mls/hr Q1H1M STAT IV 02/03/17 03:33 02/03/17 04:33 DC 02/03/17 03:33 999 MLS/HR ECG Indication: chest pain Rate (beats per minute): 100 Rhythm: normal sinus Findings: no acute ischemic change, other (normal axis) ED Course 0034: The patient was evaluated in room C5. A complete history and physical exam was performed. 0037: Toradol Inj 30 mg IV, Zofran Inj 4 mg IV, Sodium Chloride 1000 ml @ 999 mls/hr IV. 0246: GI cocktail 24 ml PO, Famotidine 20 mg IV. 0249: Maalox Susp 30 ml .ROUTE, Lidocaine HCl 20 ml .ROUTE Medical Decision I reviewed the patient's past medical history, medications, and the nursing notes as described above. Differential diagnosis: pneumonia, bronchitis, ACS, PE , gastritis, gastroenteritis, aortic dissection. 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 On arrival the patient appears fatigued but in NAD, AFVSS. EKG unremarkable. CXR negative. UA dirty with WBC, LE and also epitheals cells but no bacteria. Will wait for cultures. Patient currently on bactrim and keflex since last ED visit. Delta 2 hour troponin negative. Considering constant and reproducible pain since onset Heart score 1, low risk. ACS not likely. Patient feeling improved after IVF, pepcid, GI cocktail. Findings and plan for follow-up reviewed with patient. Patient agreeable and d/c'd per discharge instructions. Medication Reconcilliation Current Medication List: was personally reviewed by me Blood Pressure Screening Patient's blood pressure: Normal blood pressure Impression Primary Impression: Chest wall pain Scribe Attestation The scribe's documentation has been prepared under my direction and personally reviewed by me in its entirety. I confirm that the note above accurately reflects all work, treatment, procedures, and medical decision making performed by me. Departure Information Dispostion Home / Self-Care Referrals Dennis Khan M.D. (PCP) Patient Instructions Chest Pain - [facility], ED Chest Pain Costochondritis, My [facility] Additional Instructions Please follow up with your primary care physician in the next 1-3 days for re- evaluation. Your symptoms are most likely due to muscular strain/inflammation. Otherwise, your exam, EKG, chest xray, bedside heart ultrasound, and lab results did not show signs of an emergent condition at this time. Continue your current medications. Return to the emergency department for worsening symptoms as described in the accompanying instructions.
[2017-02-03 00:51] LABS: BASO % 0.5 %; BASO ABS # 0.05 K/uL (0-0.2); COMPLETE YES; EOS % 1.9 %; HEMATOCRIT 36.6 % (37-47); IG% 0.8 %; LYMPH % 36.7 %; MEAN CELL VOLUME 89.5 fL (80-100); MEAN CORPUSCULAR HEMOGLOBIN 30.3 pg (25-34); MEAN CORPUSCULAR HGB CONC 33.9 g/dl (32-36); MEAN PLATELET VOLUME 8.8 fL (7.4-10.4); MONO % 7.2 %; NEUT % 52.9 %; PLATELET COUNT 316 K/uL (130-400); RED BLOOD COUNT 4.09 M/uL (4.2-5.4); WHITE BLOOD COUNT 9.54 K/uL (4.8-10.8)
[2017-02-03 01:00] LABS: ALT/SGPT 18 U/L (12-78); AST/SGOT 9 U/L (15-37); BLOOD UREA NITROGEN 19 mg/dl (7-18); BUN/CREATININE RATIO 19.9 (10-20); CALCIUM 8.5 mg/dl (8.5-10.1); CARBON DIOXIDE 23 mmol/L (21-32); CHLORIDE 110 mmol/L (98-107); CREATININE 0.95 mg/dl (0.60-1.20); GLUCOSE 84 mg/dl (70-99); POTASSIUM 4.2 mmol/L (3.5-5.1); SODIUM 140 mmol/L (136-145)
[2017-02-03 01:05] LABS: ALKALINE PHOSPHATASE 51 U/L (45-117)
[2017-02-03 01:17] LABS: URINE APPEARANCE CLOUDY (CLEAR); URINE BILIRUBIN NEG (NEG); URINE COLOR YELLOW; URINE EPITHELIAL CELL AUTO >30 /lpf (0-5); URINE NITRITE NEG (NEG); URINE PH 5.5 (4.5-7.5); URINE SPECIFIC GRAVITY 1.031 (1.000-1.030); UROBILINOGEN NEG (NEG); ZZUR CULT IF INDIC CLEAN CATCH YES
[2017-02-03 01:18] LABS: MANUAL MICROSCOPIC REQUIRED? NO; REVIEW REQ? YES
[2017-02-03] MEDS ORDERED: FAMOTIDINE 20MG/102 ML D5W IV STA (02:46)
[2017-02-03] MEDS ORDERED: GI COCKTAIL PO STA (02:46)
[2017-02-03] MEDS ORDERED: ALUMINUM/MAGNESIUM SUSP 30 ML UDC ONE (02:49)
[2017-02-03] MEDS ORDERED: LIDOCAINE HCL 2% VISC SOLN 20 ML UDC ONE (02:49)
[2017-02-03 04:56] VITALS: BP 131/80; PULSE 64; O2SAT 98
--- NOTE | 2017-02-03 07:15 | DIAGNOSTIC IMAGING REPORT ---
CHEST ONE VIEW PORTABLE CLINICAL HISTORY: Atypical chest pain COMPARISON STUDY: 01/27/2017 FINDINGS: The cardiac and mediastinal contours are normal. There is no evidence of focal pulmonary consolidation. There is no evidence of failure. No pleural effusions are visualized.[ IMPRESSION: No active disease in the chest. Electronically signed by: Gray Schultz M.D. 02/03/2017 7:14 AM Dictated Date/Time: 02/03/2017 7:13 AM
== END 2017-02-03 04:58 | disposition home or self-care (01) ==
LOC: EDBD 23:39 → C.EDC 23:40
DX: R07.89 Other chest pain (principal); F41.9 Anxiety disorder, unspecified; J45.909 Unspecified asthma, uncomplicated; F31.81 Bipolar II disorder; M79.7 Fibromyalgia; G43.909 Migraine, unspecified, not intractable, without status migrainosus; Z87.442 Personal history of urinary calculi; Z87.440 Personal history of urinary (tract) infections; E03.9 Hypothyroidism, unspecified; Z83.3 Family history of diabetes mellitus; Z80.9 Family history of malignant neoplasm, unspecified; Z82.49 Family history of ischemic heart disease and other diseases of the circulatory system; Z83.79 Family history of other diseases of the digestive system; Z84.1 Family history of disorders of kidney and ureter; F17.210 Nicotine dependence, cigarettes, uncomplicated; Z79.899 Other long term (current) drug therapy

== ENCOUNTER 2017-03-01 00:03 | Emergency (ER) | payer OTHER ==
[~2017-03-01] VITALS: Ht 162.6 cm; Wt 98.5 kg
[2017-03-01 00:13] VITALS: TEMP 36.8; Ht 162.6 cm; Wt 98.5 kg
--- NOTE | 2017-03-01 00:13 | EMERGENCY ROOM VISIT NOTE ---
History Report prepared by Antonieta: Geetha Rucker Under the Supervision of: Dr. Jocy Banuelos D.O. First contact with patient: 00:05 Chief Complaint: ABDOMINAL PAIN Stated Complaint: ABDOMINAL PAIN History of Present Illness The patient is a 42 year old female who presents to the Emergency Room with complaints of persistent right lower quadrant abdominal pain that started after 6pm last night. The patient rates her pain a 9/10 in severity. The patient notes the pain is located around her appendix and is radiating to her lower back. She states she recently got diagnosed with degenerative disc disease. She reports she is seeing a chiropractor for the degenerative disc disease. She notes she goes to psych rehab twice a week and was on her way home tonight with her mom. She states they went to dinner on the way home and she was not feeling well. She notes she had cream of potato soup and a few fries. The patient is also experiencing a cough. She denies any urinary symptoms or vaginal discharge. She notes she had her period a week and a half ago. She states her stool has been soft recently. When she wiped herself today she noticed blood on the tissue. She notes she has a history of hemorrhoids. The patient had her gallbladder removed. She denies taking pain medications. Source of History: patient Onset: 6pm last night Position: abdomen (RLQ) Symptom Intensity: 9/10 Timing: other (persistent) Associated Symptoms: + cough, + diarrhea (some blood on tissue when wiping) , No urinary symptoms Review of Systems See HPI for pertinent positives & negatives. A total of 10 systems reviewed and were otherwise negative. Past Medical & Surgical Medical Problems: (1) Anxiety (2) Asthma (3) Bipolar II disorder (4) E. coli septicemia (5) Fibromyalgia (6) Gram negative septicemia (7) H/O migraine (8) H/O renal calculi (9) H/O urinary tract infection (10) History of low back pain (11) Hypothyroidism Surgical Problems: (1) S/P cholecystectomy Social History Problems: (1) Anxiety State Nos (2) Asthma, Unspecified (3) Migraine Unspecified W/O Intractable Migraine (4) Pancreatitis Family History Diabetes mellitus FH: cancer FH: heart disease FH: lung disease FHx: gallbladder disease Kidney disease or stones Social History Smoking Status: Current Some Day Smoker Alcohol Use: none Drug Use: none Marital Status: single Housing Status: lives with family Occupation Status: disabled Current/Historical Medications Scheduled Cyanocobalamin (Vitamin B-12), 1,000 MCG PO QAM Cyclobenzaprine Hcl (Flexeril), 10 MG PO HS Cyclobenzaprine Hcl (Flexeril), 5 MG PO QAM Dicyclomine HCl (Dicyclomine HCl), 20 MG PO BID Ferrous Sulfate (Ferrous Sulfate), 325 MG PO DAILY Fluticasone Propionate (Inhala (Flovent Diskus), 1 PUFF INH BID Gabapentin (Gabapentin), 600 MG PO TID Hydroxyzine Hcl (Atarax), 75 MG PO HS Lamotrigine (Lamictal), 200 MG PO DAILY Levothyroxine Sodium (Levothyroxine Sodium), 50 MCG PO QAM Loratadine (Claritin), 10 MG PO QAM Meloxicam (Mobic), 15 MG PO DAILY Norethin Acet & Estrad-Fe (Gildess Fe ), 1 TAB PO QAM Pantoprazole (Pantoprazole Sodium), 40 MG PO QAM Prazosin Hcl (Prazosin), 4 MG PO HS Topiramate (Topamax), 2 TABS PO BID Venlafaxine Hcl (Effexor Extended Rel), 150 MG PO QAM Scheduled PRN Albuterol Sulfate (Proair Respiclick), 2-4 PUFFS INH Q4H PRN for Cough/ Shortness Of Breath Epinephrine (Epipen), 0.3 MG IM UD PRN for ALLERGIC REACTION Fluticasone Propionate (Fluticasone Propionate), 2 SPRAYS JERRY QAM PRN for Nasal Congestion Mupirocin 2% (Bactroban 2%), 1 APPLN EXT UD PRN for skin impairment Rizatriptan Benzoate (Rizatriptan Benzoate), 10 MG PO for Pain Allergies Coded Allergies: BEE STING (Verified Allergy, Severe, ANAPHYLAXIS, 03/01/17) Morphine (Verified Adverse Reaction, Intermediate, HALLUCINATIONS, ) Physical Exam Vital Signs Date Time Temp Pulse Resp B/P (MAP) Pulse Ox O2 Delivery O2 Flow Rate FiO2 03/01/17 02:46 67 18 106/79 99 Room Air 03/01/17 01:38 74 20 129/70 97 Room Air 03/01/17 01:08 85 20 122/87 99 Room Air 03/01/17 00:26 74 03/01/17 00:13 36.8 82 23 156/93 98 Room Air Physical Exam HEENT: Head - normocephalic and atraumatic Pupils are equal, round, and reactive to light. Extraocular eye muscles are intact, and sclera are anicteric. Nose - moist nasal mucosa without discharge. Mouth - moist buccal mucosa. Oropharynx is nonerythematous and there is no tonsillar exudate or edema noted. Neck: Supple; no JVD, nuchal rigidity, cervical lymphadenopathy. Heart: Regular rate and rhythm. There is a normal S1 and S2 with no murmurs, clicks, or gallops appreciated. Lungs: Clear to auscultation bilaterally with no wheezes, rales, or rhonchi. Abdomen: Pain at McBurney's point. There are no palpable pulsatile masses or hepatosplenomegaly. There is no guarding, rigidity, or rebound noted. Extremities: No evidence of cyanosis, clubbing, or edema. There are easily palpable peripheral pulses. Skin: warm and dry with good turgor and no rashes. Medical Decision & Procedures ER Provider Diagnostic Interpretation: Radiology results as stated below per my review and the radiologist's interpretation: US APPENDIX: The appendix was not visualized. This does not exclude acute appendicitis. Laboratory Results 03/01/17 00:43 Red Blood Count 4.04, Mean Corpuscular Volume 89.9, Mean Corpuscular Hemoglobin 30.4, Mean Corpuscular Hemoglobin Concent 33.9, Mean Platelet Volume 8.9, Neutrophils (%) (Auto) 50.3, Lymphocytes (%) (Auto) 38.9, Monocytes (%) (Auto) 7.7, Eosinophils (%) (Auto) 1.7, Basophils (%) (Auto) 0.5, Neutrophils # (Auto) 4.70, Lymphocytes # (Auto) 3.64, Monocytes # (Auto) 0.72, Eosinophils # (Auto) 0.16, Basophils # (Auto) 0.05 03/01/17 00:43 Test 03/01/17 00:43 White Blood Count 9.35 K/uL (4.8-10.8) Red Blood Count 4.04 M/uL (4.2-5.4) Hemoglobin 12.3 g/dL (12.0-16.0) Hematocrit 36.3 % (37-47) Mean Corpuscular Volume 89.9 fL (80-100) Mean Corpuscular Hemoglobin 30.4 pg (25-34) Mean Corpuscular Hemoglobin Concent 33.9 g/dl (32-36) Platelet Count 343 K/uL (130-400) Mean Platelet Volume 8.9 fL (7.4-10.4) Neutrophils (%) (Auto) 50.3 % Lymphocytes (%) (Auto) 38.9 % Monocytes (%) (Auto) 7.7 % Eosinophils (%) (Auto) 1.7 % Basophils (%) (Auto) 0.5 % Neutrophils # (Auto) 4.70 K/uL (1.4-6.5) Lymphocytes # (Auto) 3.64 K/uL (1.2-3.4) Monocytes # (Auto) 0.72 K/uL (0.11-0.59) Eosinophils # (Auto) 0.16 K/uL (0-0.5) Basophils # (Auto) 0.05 K/uL (0-0.2) RDW Standard Deviation 42.9 fL (36.4-46.3) RDW Coefficient of Variation 13.2 % (11.5-14.5) Immature Granulocyte % (Auto) 0.9 % Immature Granulocyte # (Auto) 0.08 K/uL (0.00-0.02) Urine Color YELLOW Urine Appearance CLOUDY (CLEAR) Urine pH 6.5 (4.5-7.5) Urine Specific [place] 1.018 (1.000-1.030) Urine Protein NEG (NEG) Urine Glucose (UA) NEG (NEG) Urine Ketones NEG (NEG) Urine Occult Blood NEG (NEG) Urine Nitrite NEG (NEG) Urine Bilirubin NEG (NEG) Urine Urobilinogen NEG (NEG) Urine Leukocyte Esterase MODERATE (NEG) Urine WBC (Auto) >30 /hpf (0-5) Urine RBC (Auto) 0-4 /hpf (0-4) Urine Hyaline Casts (Auto) 1-5 /lpf (0-5) Urine Epithelial Cells (Auto) >30 /lpf (0-5) Urine Bacteria (Auto) NEG (NEG) Urine Test NEG (NEG) Anion Gap 9.0 mmol/L (3-11) Est Creatinine Clear Calc Drug Dose 90.0 ml/min Estimated GFR () 88.9 Estimated GFR (Non- 76.7 BUN/Creatinine Ratio 18.7 (10-20) Calcium Level 9.2 mg/dl (8.5-10.1) Total Bilirubin 0.2 mg/dl (0.2-1) Aspartate Amino Transf (AST/SGOT) 9 U/L (15-37) Alanine Aminotransferase (ALT/SGPT) 18 U/L (12-78) Alkaline Phosphatase 49 U/L (45-117) Total Protein 7.3 gm/dl (6.4-8.2) Albumin 3.4 gm/dl (3.4-5.0) Globulin 3.9 gm/dl (2.5-4.0) Albumin/Globulin Ratio 0.9 (0.9-2) Lipase 263 U/L (73-393) Laboratory results per my review. Medications Administered Medications (Trade) Dose Ordered Sig/Shelli Route Start Time Stop Time Status Last Admin Dose Admin Ondansetron HCl (Zofran Inj) 4 mg NOW STAT IV 03/01/17 01:25 03/01/17 01:26 DC 03/01/17 01:38 4 MG Ketorolac Tromethamine (Toradol Inj) 30 mg NOW STAT IV 03/01/17 01:25 03/01/17 01:26 DC 03/01/17 01:38 30 MG Procedure Medications administered: 0125: Toradol Inj 30 mg IV, Zofran Inj 4 mg IV. ED Course 0024: Past medical records reviewed. The patient was evaluated in room B6. A complete history and physical exam was performed. An IV lock was initiated and labs were drawn as above. The patient went for ultrasound of the right lower extremity to evaluate for appendicitis. 0125: Toradol Inj 30 mg IV, Zofran Inj 4 mg IV. 0245: Upon reevaluation, the patient was resting comfortably. She was sleeping. She denies experiencing any symptoms at the time. I discussed findings and results with her. She verbalized agreement of the treatment plan. She will be discharged home. Medical Decision The patient is a 42 year old female who presents to the ED with abdominal pain. Differential diagnosis includes ureteral colic, appendicitis, colitis, degenerative disc disease. Lab results show: Urinalysis negative for Moderate leukocyte esterase WBC greater than 30 Epithelial cells greater than 30 Normal renal function Glucose 111 Normal LFT's No leucocytosis Stable H & H The patient presents to the emergency department with right lower quadrant abdominal pain which was concerning for appendicitis on physical exam. However , the patient is afebrile and has no leukocytosis. In reviewing the patient's medical record, she has undergone 8 CT scans of her abdomen and pelvis in the past 2 years. I did not want to expose her to any further radiation at this time. Ultrasound could not identify the appendix but the patient's symptoms completely resolved prior to discharge. The patient was instructed to return to the emergency department immediately if she developed any vomiting, worsening right lower quadrant abdominal pain, or fever. Otherwise, the patient will return to the emergency Department in 18-24 hours to have her laboratory studies rechecked if the abdominal pain persists. Medication Reconcilliation Current Medication List: was personally reviewed by me Blood Pressure Screening Patient's blood pressure: Normal blood pressure Impression Primary Impression: Right lower quadrant abdominal pain Scribe Attestation The scribe's documentation has been prepared under my direction and personally reviewed by me in its entirety. I confirm that the note above accurately reflects all work, treatment, procedures, and medical decision making performed by me. Departure Information Dispostion Home / Self-Care Referrals Dennis Khan M.D. (PCP) Patient Instructions My [facility] Additional Instructions Rest. Take a bland diet. Return to the ER ALEXEY if you develop a fever with continued right lower abdominal pain. Otherwise, if the pain persists or worsens, return in 18-24 hours to have your blood work repeated.
[2017-03-01 01:01] LABS: BASO % 0.5 %; BASO ABS # 0.05 K/uL (0-0.2); COMPLETE YES; EOS % 1.7 %; HEMATOCRIT 36.3 % (37-47); IG% 0.9 %; LYMPH % 38.9 %; LYMPH ABS # 3.64 K/uL (1.2-3.4); MEAN CELL VOLUME 89.9 fL (80-100); MEAN CORPUSCULAR HEMOGLOBIN 30.4 pg (25-34); MEAN CORPUSCULAR HGB CONC 33.9 g/dl (32-36); MEAN PLATELET VOLUME 8.9 fL (7.4-10.4); MONO % 7.7 %; NEUT % 50.3 %; PLATELET COUNT 343 K/uL (130-400); PREG INTERNAL POSITIVE QC POS CONTROL LINE; RED BLOOD COUNT 4.04 M/uL (4.2-5.4); WHITE BLOOD COUNT 9.35 K/uL (4.8-10.8)
[2017-03-01 01:02] LABS: PREG INTERNAL NEGATIVE QC NEG CLEAR BACKGROUND
[2017-03-01 01:04] LABS: URINE APPEARANCE CLOUDY (CLEAR); URINE BILIRUBIN NEG (NEG); URINE COLOR YELLOW; URINE EPITHELIAL CELL AUTO >30 /lpf (0-5); URINE NITRITE NEG (NEG); URINE PH 6.5 (4.5-7.5); URINE SPECIFIC GRAVITY 1.018 (1.000-1.030); UROBILINOGEN NEG (NEG)
[2017-03-01 01:06] LABS: MANUAL MICROSCOPIC REQUIRED? NO; REVIEW REQ? NO
[2017-03-01 01:17] LABS: BUN/CREATININE RATIO 18.7 (10-20); CALCIUM 9.2 mg/dl (8.5-10.1); CREATININE 0.91 mg/dl (0.60-1.20); POTASSIUM 3.8 mmol/L (3.5-5.1)
[2017-03-01 01:20] LABS: ALB/GLOB RATIO 0.9 (0.9-2)
[2017-03-01] MEDS ORDERED: ONDANSETRON INJ 2 MG/ML 2 ML VIAL IV STA (01:25)
[2017-03-01] MEDS ORDERED: KETOROLAC TROMETHAMINE 30 MG/ML VIAL IV STA (01:25)
[2017-03-01 02:46] VITALS: BP 106/79; PULSE 67; O2SAT 99
--- NOTE | 2017-03-01 07:19 | DIAGNOSTIC IMAGING REPORT ---
ABDOMEN LIMITED (US) HISTORY: 42 years-old Female eval rlq for appy acute right lower quadrant abdominal pain with clinical concern for possible appendicitis. COMPARISON: CT 01/08/2017 TECHNIQUE: Multiple real-time sonographic images of the abdominal right lower quadrant were obtained assessing grayscale appearance and color flow FINDINGS: The appendix is not identified. No hyperemic mesenteric fat, focal fluid collections or hypoperistaltic bowel identified. IMPRESSION: Appendix not visualized. No secondary signs to suggest acute appendicitis. The above report was generated using voice recognition software. It may contain grammatical, syntax or spelling errors. Electronically signed by: Zachary Rose M.D. 03/01/2017 7:18 AM Dictated Date/Time: 03/01/2017 7:11 AM
[2017-03-01] MEDS ORDERED: RIZA1TAB7 PO (14:30)
[2017-03-01] MEDS ORDERED: BCTCR/30 TOP (14:30)
[2017-03-01] MEDS ORDERED: FLUT1AER4 INH (14:38)
[2017-03-01] MEDS ORDERED: PRAZ2CAP2 PO (16:08)
[2017-03-01] MEDS ORDERED: DICY1TAB25 PO (16:08)
[2017-03-01] MEDS ORDERED: CYCL10TA6 PO ×2 (16:18→17:14)
[2017-03-01] MEDS ORDERED: EFFSR150 PO (16:35)
[2017-03-01] MEDS ORDERED: NRN600 PO (16:35)
[2017-03-01] MEDS ORDERED: CYAN10005 PO (17:14)
[2017-03-01] MEDS ORDERED: ALBU18002 INH (18:06)
[2017-03-01] MEDS ORDERED: FERR1TAB62 PO (18:06)
[2017-03-01] MEDS ORDERED: LAMO200T38 PO (18:30)
[2017-03-01] MEDS ORDERED: MELO15TA4 PO (18:30)
[2017-03-01] MEDS ORDERED: HYDR-3124 PO (18:31)
[2017-03-01] MEDS ORDERED: TOPI100T34 PO (18:31)
[2017-03-01] MEDS ORDERED: FLNIN/ NAE (20:13)
[2017-03-01] MEDS ORDERED: LEVO50TA6 PO (20:13)
[2017-03-01] MEDS ORDERED: PANT40TA2 PO (20:13)
[2017-03-01] MEDS ORDERED: CLR10 PO (20:17)
[2017-03-01] MEDS ORDERED: NORE-3 PO (20:18)
[2017-03-01] MEDS ORDERED: EPP3/2 IM (21:52)
== END 2017-03-01 02:54 | disposition home or self-care (01) ==
LOC: EDBD 00:03 → C.EDB 00:05
DX: R10.31 Right lower quadrant pain (principal); F41.9 Anxiety disorder, unspecified; J45.909 Unspecified asthma, uncomplicated; F31.81 Bipolar II disorder; M79.7 Fibromyalgia; Z87.442 Personal history of urinary calculi; Z87.440 Personal history of urinary (tract) infections; E03.9 Hypothyroidism, unspecified; Z90.49 Acquired absence of other specified parts of digestive tract; Z83.3 Family history of diabetes mellitus; Z80.9 Family history of malignant neoplasm, unspecified; Z84.1 Family history of disorders of kidney and ureter; F17.210 Nicotine dependence, cigarettes, uncomplicated; Z79.899 Other long term (current) drug therapy

== ENCOUNTER 2017-03-01 14:43 | Emergency (ER) | payer OTHER ==
[~2017-03-01] VITALS: Ht 162.6 cm; Wt 96.8 kg
[~2017-03-01 14:43] MED LIST changes: -ALBU18002 INH; -BCTCR/30 EXT; +BCTCR/30 TOP; -CEPH500C2 PO; -CLR10 PO; -CYAN10005 PO; -CYCL10TA6 PO; -DICY1TAB25 PO; -EFFSR150 PO; -EPP3/2 IM; -FERR325T PO; -FLNIN/ NAE; -HYDR-3124 PO; -LAMO1TAB21 PO; -LEVO50TA6 PO; -MELO7.5T5 PO; -NORE-3 PO; -NRN600 PO; -PRAZ2CAP2 PO; -PRT/40 PO; -SULF800T23 PO; -TOPI100T34 PO
[2017-03-01 14:48] VITALS: TEMP 37.2; Ht 162.6 cm; Wt 96.8 kg
[2017-03-01] MEDS ORDERED: ONDANSETRON INJ 2 MG/ML 2 ML VIAL IV STA (15:03)
[2017-03-01] MEDS ORDERED: KETOROLAC TROMETHAMINE 30 MG/ML VIAL IV STA (15:03)
[2017-03-01 15:50] LABS: HEMATOCRIT 36.2 % (37-47); MEAN CELL VOLUME 90.3 fL (80-100); MEAN CORPUSCULAR HEMOGLOBIN 31.2 pg (25-34); MEAN CORPUSCULAR HGB CONC 34.5 g/dl (32-36); MEAN PLATELET VOLUME 8.7 fL (7.4-10.4); PLATELET COUNT 339 K/uL (130-400); RED BLOOD COUNT 4.01 M/uL (4.2-5.4); WHITE BLOOD COUNT 8.69 K/uL (4.8-10.8)
[2017-03-01 15:57] LABS: URINE APPEARANCE CLEAR (CLEAR); URINE BILIRUBIN NEG (NEG); URINE COLOR YELLOW; URINE NITRITE NEG (NEG); URINE PH 5.5 (4.5-7.5); URINE SPECIFIC GRAVITY 1.023 (1.000-1.030); UROBILINOGEN NEG (NEG); ZZUR CULT IF INDIC CLEAN CATCH NO
[2017-03-01 15:58] LABS: BUN/CREATININE RATIO 16.2 (10-20); CALCIUM 8.5 mg/dl (8.5-10.1); CREATININE 1.03 mg/dl (0.60-1.20); POTASSIUM 3.6 mmol/L (3.5-5.1)
[2017-03-01 15:59] LABS: PREG INTERNAL NEGATIVE QC NEG CLEAR BACKGROUND; PREG INTERNAL POSITIVE QC POS CONTROL LINE
[2017-03-01 16:00] LABS: ALB/GLOB RATIO 0.8 (0.9-2)
[2017-03-01 16:02] LABS: MANUAL MICROSCOPIC REQUIRED? NO; REVIEW REQ? NO
[2017-03-01] MEDS ORDERED: DICY1TAB25 PO (16:08)
[2017-03-01] MEDS ORDERED: PRAZ2CAP2 PO (16:08)
[2017-03-01 16:16] LABS: BASO % 0.6 %; BASO ABS # 0.05 K/uL (0-0.2); COMPLETE YES; EOS % 2.1 %; IG% 0.6 %; LYMPH % 30.6 %; LYMPH ABS # 2.66 K/uL (1.2-3.4); NEUT % 59.1 %
[2017-03-01] MEDS ORDERED: CYCL10TA6 PO ×2 (16:18→17:14)
[2017-03-01] MEDS ORDERED: EFFSR150 PO (16:35)
[2017-03-01] MEDS ORDERED: NRN600 PO (16:35)
--- NOTE | 2017-03-01 17:04 | EMERGENCY ROOM VISIT NOTE ---
History First contact with patient: 14:53 Chief Complaint: ABDOMINAL PAIN Stated Complaint: ABDOMINAL PAIN Nursing Triage Summary: pt c/o abd pain. associated nausea. seen here last night for the same. Pt reports she was told if she had a fever to return. Temp 99.2 at home. denies Tylenol or Advil today History of Present Illness The patient is a 42 year old female who presents to the Emergency Room via ambulance with complaints of "abdominal pain". The patient states that she has a history of abdominal pain, and last night around 6 PM after eating a bowl of cream of potato soup as well as a couple maltese fries she developed right lower quadrant abdominal pain. She states that she was not feeling well, therefore came here. She states that she had an ultrasound performed of the appendix and was told that if her temperature nata the pain was to worsen she is to return. She states that her temperature was 99.2F orally, and when she called the ambulate it was 99.4F orally. She states that the pain also worsened. She states that there is a possibility of appendicitis therefore prompting her visit here today. She denies any vaginal discharge, dysuria, chance of , vomiting. The gallbladder is removed and there are associated nausea , chills and cold sweats. Review of Systems A complete 10-point Review of Systems was discussed with the patient, with pertinent positives and negatives listed in the History of Present Illness. All remaining Review of Systems questions can be considered negative unless otherwise specified. Past Medical/Surgical History Medical Problems: (1) Anxiety (2) Asthma (3) Bipolar II disorder (4) E. coli septicemia (5) Fibromyalgia (6) Gram negative septicemia (7) H/O migraine (8) H/O renal calculi (9) H/O urinary tract infection (10) History of low back pain (11) Hypothyroidism Surgical Problems: (1) S/P cholecystectomy Social History Problems: (1) Anxiety State Nos (2) Asthma, Unspecified (3) Migraine Unspecified W/O Intractable Migraine (4) Pancreatitis Family History Diabetes mellitus FH: cancer FH: heart disease FH: lung disease FHx: gallbladder disease Kidney disease or stones Social History Smoking Status: Never Smoker Alcohol Use: none Drug Use: none Marital Status: single Housing Status: lives with family Occupation Status: disabled Current/Historical Medications Scheduled Cyanocobalamin (Vitamin B-12), 1,000 MCG PO QAM Cyclobenzaprine Hcl (Flexeril), 10 MG PO HS Cyclobenzaprine Hcl (Flexeril), 5 MG PO QAM Dicyclomine HCl (Dicyclomine HCl), 20 MG PO BID Ferrous Sulfate (Ferrous Sulfate), 325 MG PO DAILY Fluticasone Propionate (Inhala (Flovent Diskus), 1 PUFF INH BID Gabapentin (Gabapentin), 600 MG PO TID Hydroxyzine Hcl (Atarax), 75 MG PO HS Lamotrigine (Lamictal), 200 MG PO DAILY Levothyroxine Sodium (Levothyroxine Sodium), 50 MCG PO QAM Loratadine (Claritin), 10 MG PO QAM Meloxicam (Mobic), 15 MG PO DAILY Norethin Acet & Estrad-Fe (Gildess Fe ), 1 TAB PO QAM Pantoprazole (Pantoprazole Sodium), 40 MG PO QAM Prazosin Hcl (Prazosin), 4 MG PO HS Topiramate (Topamax), 200 MG PO BID Venlafaxine Hcl (Effexor Extended Rel), 150 MG PO QAM Scheduled PRN Albuterol Sulfate (Proair Respiclick), 2-4 PUFFS INH Q4H PRN for Cough/ Shortness Of Breath Epinephrine (Epipen), 0.3 MG IM UD PRN for ALLERGIC REACTION Fluticasone Propionate (Fluticasone Propionate), 2 SPRAYS JERRY QAM PRN for Nasal Congestion Mupirocin 2% (Bactroban 2%), 1 APPLN TOP UD PRN for Skin Impairment Rizatriptan Benzoate (Rizatriptan Benzoate), 10 MG PO UD PRN for Migraine Allergies Coded Allergies: BEE STING (Verified Allergy, Severe, ANAPHYLAXIS, 03/01/17) Morphine (Verified Adverse Reaction, Intermediate, HALLUCINATIONS, ) Physical Exam Vital Signs Date Time Temp Pulse Resp B/P (MAP) Pulse Ox O2 Delivery O2 Flow Rate FiO2 03/01/17 19:03 77 16 143/78 98 03/01/17 18:56 143/78 98 03/01/17 17:35 87 18 146/98 96 03/01/17 14:48 37.2 96 18 155/95 94 Room Air Physical Exam VITAL SIGNS - Vital signs and nursing notes were reviewed. Stable. Afebrile. Hypertensive. GENERAL -42-year-old female appearing her stated age who is in no acute distress and is sitting upright in the bed communicating without difficulty and smiling. Communicates well with provider and answers questions appropriately. SKIN - Without rashes. HEAD - NC/AT. EYES - Sclera anicteric. EARS - No deformities of external structures noted on gross examination bilaterally. NOSE - Midline and without cyanosis. No epistaxis or purulent drainage noted. MOUTH/OROPHARYNX - Without perioral cyanosis. LUNGS - Chest wall symmetric without accessory muscle use, intercostals retractions, or central cyanosis. Normal vesicular breath sounds CTA B/L. No wheezes, rales, or rhonchi appreciated. CARDIAC - RRR with S1/S2. No murmur, rubs, or gallops appreciated. ABDOMEN - Abdominal contour normal without pulsations or visible masses. BS normoactive all four quadrants. R sided abd/flank tenderness. No palpable masses , hepatosplenomegaly, or ascites noted. PSYCH - A&O, and cooperates fully with examiner. Pt is very pleasant and interacts well with examiner. Medical Decision & Procedures ER Provider Diagnostic Interpretation: PELVIC ULTRASOUND CLINICAL HISTORY: Right lower quadrant pain. COMPARISON STUDY: CT of the abdomen and pelvis January 08, 2017 and pelvic ultrasound October 08, 2016. TECHNIQUE: Transabdominal and transvaginal sonography of the pelvis was performed. FINDINGS: The uterus measures 7.5 x 3.6 x 3.5 cm. Endometrium measures 5 mm in thickness. There is trace fluid within the uterine cavity. The left ovary was not visualized. The right ovary measured 2.3 x 1.7 x 2.2 cm and contains a cyst or dominant follicle. Color flow is identified within the right ovary. There was no free fluid. IMPRESSION: 1. Nonvisualization of the left ovary. 2. No significant abnormality of the uterus or right ovary by sonography. 3. 1.5 cm cyst or dominant follicle within the right ovary. Electronically signed by: Saud Espinosa M.D. 03/01/2017 5:58 PM Dictated Date/Time: 03/01/2017 5:55 PM Laboratory Results 03/01/17 15:13 Red Blood Count 4.01, Mean Corpuscular Volume 90.3, Mean Corpuscular Hemoglobin 31.2, Mean Corpuscular Hemoglobin Concent 34.5, Mean Platelet Volume 8.7, Neutrophils (%) (Auto) 59.1, Lymphocytes (%) (Auto) 30.6, Monocytes (%) (Auto) 7.0, Eosinophils (%) (Auto) 2.1, Basophils (%) (Auto) 0.6, Neutrophils # (Auto) 5.14, Lymphocytes # (Auto) 2.66, Monocytes # (Auto) 0.61, Eosinophils # (Auto) 0.18, Basophils # (Auto) 0.05 03/01/17 15:13 Test 03/01/17 15:13 White Blood Count 8.69 K/uL (4.8-10.8) Red Blood Count 4.01 M/uL (4.2-5.4) Hemoglobin 12.5 g/dL (12.0-16.0) Hematocrit 36.2 % (37-47) Mean Corpuscular Volume 90.3 fL (80-100) Mean Corpuscular Hemoglobin 31.2 pg (25-34) Mean Corpuscular Hemoglobin Concent 34.5 g/dl (32-36) Platelet Count 339 K/uL (130-400) Mean Platelet Volume 8.7 fL (7.4-10.4) Neutrophils (%) (Auto) 59.1 % Lymphocytes (%) (Auto) 30.6 % Monocytes (%) (Auto) 7.0 % Eosinophils (%) (Auto) 2.1 % Basophils (%) (Auto) 0.6 % Neutrophils # (Auto) 5.14 K/uL (1.4-6.5) Lymphocytes # (Auto) 2.66 K/uL (1.2-3.4) Monocytes # (Auto) 0.61 K/uL (0.11-0.59) Eosinophils # (Auto) 0.18 K/uL (0-0.5) Basophils # (Auto) 0.05 K/uL (0-0.2) RDW Standard Deviation 43.1 fL (36.4-46.3) RDW Coefficient of Variation 13.2 % (11.5-14.5) Immature Granulocyte % (Auto) 0.6 % Immature Granulocyte # (Auto) 0.05 K/uL (0.00-0.02) Urine Color YELLOW Urine Appearance CLEAR (CLEAR) Urine pH 5.5 (4.5-7.5) Urine Specific [place]az 1.023 (1.000-1.030) Urine Protein NEG (NEG) Urine Glucose (UA) NEG (NEG) Urine Ketones NEG (NEG) Urine Occult Blood NEG (NEG) Urine Nitrite NEG (NEG) Urine Bilirubin NEG (NEG) Urine Urobilinogen NEG (NEG) Urine Leukocyte Esterase NEG (NEG) Urine Test NEG (NEG) Anion Gap 9.0 mmol/L (3-11) Est Creatinine Clear Calc Drug Dose 78.7 ml/min Estimated GFR () 76.6 Estimated GFR (Non- 66.1 BUN/Creatinine Ratio 16.2 (10-20) Calcium Level 8.5 mg/dl (8.5-10.1) Total Bilirubin 0.3 mg/dl (0.2-1) Aspartate Amino Transf (AST/SGOT) 13 U/L (15-37) Alanine Aminotransferase (ALT/SGPT) 21 U/L (12-78) Alkaline Phosphatase 45 U/L (45-117) Total Protein 7.5 gm/dl (6.4-8.2) Albumin 3.4 gm/dl (3.4-5.0) Globulin 4.1 gm/dl (2.5-4.0) Albumin/Globulin Ratio 0.8 (0.9-2) Medications Administered Medications (Trade) Dose Ordered Sig/Shelli Route Start Time Stop Time Status Last Admin Dose Admin Ondansetron HCl (Zofran Inj) 4 mg NOW STAT IV 03/01/17 15:03 03/01/17 15:05 DC 03/01/17 15:23 4 MG Ketorolac Tromethamine (Toradol Inj) 30 mg NOW STAT IV 03/01/17 15:03 03/01/17 15:05 DC 03/01/17 15:24 30 MG Medical Decision Patient was seen and evaluated as above. She is well-known to the emergency department and staff here. Right lower quadrant abdominal pain appreciated on exam. She is sitting comfortably in bed and smiling. I reevaluated her different times and she was found to be sleeping. She was given Toradol and Zofran for pain and nausea. I did not want to re-CT her as she has had a CAT scans in the recent past. I believe that the risk of radiation outweighs the benefit. At this time ultrasound was obtained of the pelvic region to rule out any other emergent etiology. There is a small cyst otherwise negative. I suspect she is stable for outpatient management given her slightly decreased somewhat blood cell count and normal metabolic panel. She was educated upon management, educated upon worrisome symptoms which to return, had questions prior to discharge, and was discharged home in good condition. She is to follow with her family doctor/[facility] regarding today's findings. In evaluation treatment this patient following differential diagnoses were entertained: Appendicitis, mesenteric adenitis, ovarian torsion, cyst, among others. Impression Primary Impression: Abdominal pain Departure Information Dispostion Home / Self-Care Condition GOOD Referrals Dennis Khan M.D. (PCP) Patient Instructions ED Diet [place], [facility] Additional Instructions You have been treated in the Emergency Department your Abdominal Pain. Laboratory results and imaging studies have ruled out any emergent causes for your abdominal pain which would warrant admission or surgery. Cyst on the R ovary. Please follow with your family doctor or OBGYN by calling them saturday For pain control, you can use the following [id number] medicines (if >12 yo): - Regular strength (325mg/tab) Tylenol (acetaminophen) 2 tabs every 4-6 hours as needed. Do not exceed 12 tablets in a 24 hour period. Avoid taking more than 3 grams (3000 mg) of Tylenol per day. This includes any other sources of acetaminophen you may take on a regular basis. - Regular strength (200 mg/tab) Advil (ibuprofen) 1-2 tabs every 4-6 hours as needed. Do not exceed a dose of 3200 mg per day. Drink plenty of water and stay well hydrated. I encourage a bland diet for next 2-3 days to help with your symptoms. As with any trip to the Emergency Department, you should follow-up with your Primary Care Provider from today's visit. Return to the emergency department if your symptoms persist despite treatment plan outlined above or if the following symptoms occur: increased fevers, chills , worsening nausea/vomiting, blood in your stool or urine. Problem Qualifiers Primary Impression: Abdominal pain Abdominal location: right lower quadrant Qualified Codes: R10.31 - Right lower quadrant pain
[2017-03-01] MEDS ORDERED: CYAN10005 PO (17:14)
--- NOTE | 2017-03-01 17:59 | DIAGNOSTIC IMAGING REPORT ---
PELVIC ULTRASOUND CLINICAL HISTORY: Right lower quadrant pain. COMPARISON STUDY: CT of the abdomen and pelvis January 08, 2017 and pelvic ultrasound October 08, 2016. TECHNIQUE: Transabdominal and transvaginal sonography of the pelvis was performed. FINDINGS: The uterus measures 7.5 x 3.6 x 3.5 cm. Endometrium measures 5 mm in thickness. There is trace fluid within the uterine cavity. The left ovary was not visualized. The right ovary measured 2.3 x 1.7 x 2.2 cm and contains a cyst or dominant follicle. Color flow is identified within the right ovary. There was no free fluid. IMPRESSION: 1. Nonvisualization of the left ovary. 2. No significant abnormality of the uterus or right ovary by sonography. 3. 1.5 cm cyst or dominant follicle within the right ovary. Electronically signed by: Saud Espinosa M.D. 03/01/2017 5:58 PM Dictated Date/Time: 03/01/2017 5:55 PM
[2017-03-01] MEDS ORDERED: ALBU18002 INH (18:06)
[2017-03-01] MEDS ORDERED: FERR1TAB62 PO (18:06)
[2017-03-01] MEDS ORDERED: LAMO200T38 PO (18:30)
[2017-03-01] MEDS ORDERED: MELO15TA4 PO (18:30)
[2017-03-01] MEDS ORDERED: TOPI100T34 PO (18:31)
[2017-03-01] MEDS ORDERED: HYDR-3124 PO (18:31)
[2017-03-01 19:03] VITALS: BP 143/78; PULSE 77; O2SAT 98
[2017-03-01] MEDS ORDERED: LEVO50TA6 PO (20:13)
[2017-03-01] MEDS ORDERED: FLNIN/ NAE (20:13)
[2017-03-01] MEDS ORDERED: PANT40TA2 PO (20:13)
[2017-03-01] MEDS ORDERED: CLR10 PO (20:17)
[2017-03-01] MEDS ORDERED: NORE-3 PO (20:18)
[2017-03-01] MEDS ORDERED: EPP3/2 IM (21:52)
== END 2017-03-01 19:04 | disposition home or self-care (01) ==
LOC: EDBD 14:43 → C.EDB 14:44 → C.EDC 19:04
DX: R10.31 Right lower quadrant pain (principal); J45.909 Unspecified asthma, uncomplicated; E03.9 Hypothyroidism, unspecified; M79.7 Fibromyalgia; F41.9 Anxiety disorder, unspecified; Z87.440 Personal history of urinary (tract) infections; Z87.442 Personal history of urinary calculi; Z90.49 Acquired absence of other specified parts of digestive tract; Z83.3 Family history of diabetes mellitus; Z79.899 Other long term (current) drug therapy

== ENCOUNTER 2017-03-06 22:34 | Inpatient (IN) | payer OTHER ==
[~2017-03-06] VITALS: Ht 162.6 cm; Wt 97.0 kg
[~2017-03-06 22:34] MED LIST changes: +ALBU18002 INH; +CLR10 PO; +CYAN10005 PO; +CYCL10TA6 PO; +DICY1TAB25 PO; +EFFSR150 PO; +EPP3/2 IM; +FERR1TAB62 PO; +FLNIN/ NAE; +HYDR-3124 PO; +LAMO200T38 PO; +LEVO50TA6 PO; +MELO15TA4 PO; +NORE-3 PO; +NRN600 PO; +PANT40TA2 PO; +PRAZ2CAP2 PO; +TOPI100T34 PO
[2017-03-06] MEDS ORDERED: KETOROLAC TROMETHAMINE 30 MG/ML VIAL IV STA (22:43)
[2017-03-06] MEDS ORDERED: ONDANSETRON INJ 2 MG/ML 2 ML VIAL IV STA (22:52)
[2017-03-07 00:39] LABS: BASO % 0.6 %; BASO ABS # 0.06 K/uL (0-0.2); COMPLETE YES; EOS % 1.8 %; HEMATOCRIT 37.4 % (37-47); IG% 0.5 %; LYMPH % 36.2 %; LYMPH ABS # 3.49 K/uL (1.2-3.4); MEAN CELL VOLUME 89.9 fL (80-100); MEAN CORPUSCULAR HEMOGLOBIN 30.8 pg (25-34); MEAN CORPUSCULAR HGB CONC 34.2 g/dl (32-36); MEAN PLATELET VOLUME 9.1 fL (7.4-10.4); MONO % 7.7 %; NEUT % 53.2 %; PLATELET COUNT 355 K/uL (130-400); RED BLOOD COUNT 4.16 M/uL (4.2-5.4); WHITE BLOOD COUNT 9.63 K/uL (4.8-10.8)
[2017-03-07] MEDS ORDERED: ACETAMINOPHEN 325 MG TAB PO PRN (00:45)
[2017-03-07] MEDS ORDERED: MAGNESIUM HYDROXIDE SUSP 30 ML UDC PO PRN (00:45)
[2017-03-07] MEDS ORDERED: ALUMINUM/MAGNESIUM/SIMETH (MAALOX MAX) 30 ML UDC PO PRN (00:45)
[2017-03-07] MEDS ORDERED: ONDANSETRON INJ 2 MG/ML 2 ML VIAL IV PRN (00:45)
[2017-03-07] MEDS ORDERED: RIZATRIPTAN BENZOATE 10 MG TAB PO PRN (00:45)
[2017-03-07 00:52] LABS: PREG INTERNAL NEGATIVE QC NEG CLEAR BACKGROUND; PREG INTERNAL POSITIVE QC POS CONTROL LINE
[2017-03-07 01:05] LABS: CALCIUM 8.7 mg/dl (8.5-10.1); CREATININE 0.78 mg/dl (0.60-1.20); POTASSIUM 4.3 mmol/L (3.5-5.1)
--- NOTE | 2017-03-07 01:10 | History and Physical ---
History & Physical Date & Time of Service: Mar 07, 2017 at 01:03 Chief Complaint: Leg Numbness, Back Pain Primary Care Physician: Dennis Khan M.D. History of Present Illness Source: patient, clinic records, hospital records This is a 42 year old female with a PMH of anxiety/depression, bipolar disorder , fibromyalgia, and chronic back pain presents with worsening back pain and numbness/tingling in b/l LE. She has had this back pain for about a year. Has seen orthopedic surgery - was told no surgical intervention needed and should take part with therapy. Patient states that therapy did not help. She has been taking Flexeril and Mobic for the pain, but it does not work. States she has a hard time getting up stairs. She does not want to go home and prefers a rehab facility. Past Medical/Surgical History Medical Problems: (1) Anxiety Status: Chronic (2) Asthma Status: Chronic (3) Bipolar II disorder Status: Chronic (4) Fibromyalgia Status: Chronic (5) H/O migraine Status: Chronic (6) H/O renal calculi Status: Chronic (7) H/O urinary tract infection Status: Chronic (8) History of low back pain Status: Chronic (9) Hypothyroidism Status: Chronic Surgical Problems: (1) S/P cholecystectomy Status: Resolved Social History Problems: (1) Anxiety State Nos Status: Chronic (2) Asthma, Unspecified Status: Chronic (3) Migraine Unspecified W/O Intractable Migraine Status: Chronic (4) Pancreatitis Status: Chronic Family History Diabetes mellitus FH: cancer FH: heart disease FH: lung disease FHx: gallbladder disease Kidney disease or stones Social History Smoking Status: Never Smoker Drug Use: none Marital Status: single Housing status: lives with family Occupational Status: disabled Immunizations History of Influenza Vaccine: N/A Influenza Vaccine Date: Dec 14, 2010 History of Tetanus Vaccine?: Unknown Tetanus Immunization Date: Jul 25, 2010 History of Pneumococcal: No History of Hepatitis B Vaccine: No Multi-Drug Resistant Organisms History of MDRO: No Allergies Coded Allergies: BEE STING (Verified Allergy, Severe, ANAPHYLAXIS, 03/06/17) Morphine (Verified Adverse Reaction, Intermediate, HALLUCINATIONS, ) Home Medications Scheduled Cyanocobalamin (Vitamin B-12), 1,000 MCG PO QAM Cyclobenzaprine Hcl (Flexeril), 10 MG PO HS Cyclobenzaprine Hcl (Flexeril), 5 MG PO QAM Dicyclomine HCl (Dicyclomine HCl), 20 MG PO BID Ferrous Sulfate (Ferrous Sulfate), 325 MG PO DAILY Fluticasone Propionate (Inhala (Flovent Diskus), 1 PUFF INH BID Gabapentin (Gabapentin), 600 MG PO TID Hydroxyzine Hcl (Atarax), 75 MG PO HS Lamotrigine (Lamictal), 200 MG PO DAILY Levothyroxine Sodium (Levothyroxine Sodium), 50 MCG PO QAM Loratadine (Claritin), 10 MG PO QAM Meloxicam (Mobic), 15 MG PO DAILY Norethin Acet & Estrad-Fe (Gildess Fe ), 1 TAB PO QAM Pantoprazole (Pantoprazole Sodium), 40 MG PO QAM Prazosin Hcl (Prazosin), 4 MG PO HS Topiramate (Topamax), 200 MG PO BID Venlafaxine Hcl (Effexor Extended Rel), 150 MG PO QAM Scheduled PRN Albuterol Sulfate (Proair Respiclick), 2-4 PUFFS INH Q4H PRN for Cough/ Shortness Of Breath Epinephrine (Epipen), 0.3 MG IM UD PRN for ALLERGIC REACTION Fluticasone Propionate (Fluticasone Propionate), 2 SPRAYS JERRY QAM PRN for Nasal Congestion Mupirocin 2% (Bactroban 2%), 1 APPLN TOP UD PRN for Skin Impairment Rizatriptan Benzoate (Rizatriptan Benzoate), 10 MG PO UD PRN for Migraine Review of Systems Constitutional: No fever, No chills, No sweats Respiratory: No cough, No sputum, No wheezing, No shortness of breath, No dyspnea on exertion, No dyspnea at rest Cardiovascular: No chest pain, No edema, No palpitations Abdomen: No pain, No nausea, No vomiting, No diarrhea, No constipation, No GI bleeding Musculoskeletal: + joint pain, No muscle pain Genitourinary - Female: No dysuria, No urinary frequency, No urinary urgency, No urinary incontinence, No urinary retention, No hematuria Neurologic: + numbness/tingling, No weakness, No vertigo, No balance problems Psychiatric: + depression symptoms, + anxiety, + insomnia (controlled with medications) Endocrine: No fatigue Hematologic / Lymphatic: No abnormal bleeding/bruising Integumentary: No rash Allergic / Immunologic: + seasonal allergies, No environmental allergies, No pet sensitivities Physical Exam Vital Signs Date Time Temp Pulse Resp B/P (MAP) Pulse Ox O2 Delivery O2 Flow Rate FiO2 03/07/17 00:18 75 16 141/90 97 Room Air 03/06/17 22:40 36.8 87 20 139/95 98 Room Air General Appearance: no apparent distress, + obese Head: normocephalic, atraumatic Eyes: normal inspection ENT: hearing grossly normal Respiratory/Chest: lungs clear, normal breath sounds, no respiratory distress, no accessory muscle use Cardiovascular: regular rate, rhythm, no edema, no gallop, no JVD, no murmur, normal peripheral pulses Abdomen/GI: normal bowel sounds, non tender, soft Back: + pertinent finding (decreased ROM/painful ROM) Extremities/Musculoskelatal: normal inspection, no calf tenderness, normal capillary refill, no pedal edema, normal range of motion Neurologic/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: 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 nml as tested, no motor/sensory deficits, alert, normal mood/affect, oriented x 3 Skin: normal color Lymphatic: no adenopathy Diagnostics Laboratory Results Results Past 24 Hours Test 03/07/17 00:09 Range/Units White Blood Count 9.63 4.8-10.8 K/uL Red Blood Count 4.16 4.2-5.4 M/uL Hemoglobin 12.8 12.0-16.0 g/dL Hematocrit 37.4 37-47 % Mean Corpuscular Volume 89.9 80-100 fL Mean Corpuscular Hemoglobin 30.8 25-34 pg Mean Corpuscular Hemoglobin Concent 34.2 32-36 g/dl Platelet Count 355 130-400 K/uL Mean Platelet Volume 9.1 7.4-10.4 fL Neutrophils (%) (Auto) 53.2 % Lymphocytes (%) (Auto) 36.2 % Monocytes (%) (Auto) 7.7 % Eosinophils (%) (Auto) 1.8 % Basophils (%) (Auto) 0.6 % Neutrophils # (Auto) 5.12 1.4-6.5 K/uL Lymphocytes # (Auto) 3.49 1.2-3.4 K/uL Monocytes # (Auto) 0.74 0.11-0.59 K/uL Eosinophils # (Auto) 0.17 0-0.5 K/uL Basophils # (Auto) 0.06 0-0.2 K/uL RDW Standard Deviation 42.1 36.4-46.3 fL RDW Coefficient of Variation 13.0 11.5-14.5 % Immature Granulocyte % (Auto) 0.5 % Immature Granulocyte # (Auto) 0.05 0.00-0.02 K/uL Human Chorionic Gonadotropin, Qual NEG NEG Diagnostic Radiology Lumbar MRI no change since MRI in September, small disc protrusion and annular tear at L4-L5 Impression Assessment and Plan This is a 42 year old female with a PMH of anxiety/depression, bipolar disorder , fibromyalgia, and chronic back pain presents with worsening back pain and numbness/tingling in b/l LE L4-L5 Annular Tear no surgical intervention as per outpatient ortho notes for now, we will try Toradol PRN Flexeril PT/OT discharge planning evaluation - patient wants to be discharged to [facility] if pain worsens, may need ortho evaluation Anxiety/Depression continue current medications Bipolar Disorder continue Lamictal DVT ppx subq heparin FULL CODE VTE Prophylaxis VTE Risk Assessment Done? Y/N: Yes Risk Level: Low
--- NOTE | 2017-03-07 01:14 | EMERGENCY ROOM VISIT NOTE ---
History First contact with patient: 22:34 Chief Complaint: BACK PAIN Stated Complaint: LEG NUMBNESS, BACK PAIN History of Present Illness The patient is a 42 year old female who presents to the Emergency Room with complaints of severe back pain with numbness in both legs and inability to walk today. Patient sees Dr. Vivas and Dr. Saha. Patient states she saw Dr. Vivas and was told there was nothing surgical that they could offer her. She sees Dr. saha from pain management and the injections have not been helping. She describes the pain as severe, 9 out of 10. Nothing makes it better or worse. Pain goes down both legs. MRI in the past showed small annular tear at L4-L5 region. Patient states she is unable to ambulate. She states her legs feel weak and cannot feel them. Patient denies trauma, loss of bowel or bladder control, saddle anesthesia, fever, chills, IV drug abuse, abdominal pain , chest pain, vomiting, diarrhea. She is tolerating by mouth fluids and food. Patient states she does not feel comfortable staying at home caring for herself as she is stating she cannot walk and is requesting admission and referral to rehabilitation. Review of Systems See HPI for pertinent positives & negatives. A total of 10 systems reviewed and were otherwise negative. Past Medical/Surgical History Medical Problems: (1) Acute bilateral low back pain (2) Anxiety (3) Asthma (4) Bipolar II disorder (5) E. coli septicemia (6) Fibromyalgia (7) Gram negative septicemia (8) H/O migraine (9) H/O renal calculi (10) H/O urinary tract infection (11) History of low back pain (12) Hypothyroidism Surgical Problems: (1) S/P cholecystectomy Social History Problems: (1) Anxiety State Nos (2) Asthma, Unspecified (3) Migraine Unspecified W/O Intractable Migraine (4) Pancreatitis Family History Diabetes mellitus FH: cancer FH: heart disease FH: lung disease FHx: gallbladder disease Kidney disease or stones Social History Smoking Status: Never Smoker Alcohol Use: none Drug Use: none Marital Status: single Housing Status: lives with family Occupation Status: disabled Current/Historical Medications Scheduled Cyanocobalamin (Vitamin B-12), 1,000 MCG PO QAM Cyclobenzaprine Hcl (Flexeril), 10 MG PO HS Cyclobenzaprine Hcl (Flexeril), 5 MG PO QAM Dicyclomine HCl (Dicyclomine HCl), 20 MG PO BID Ferrous Sulfate (Ferrous Sulfate), 325 MG PO DAILY Fluticasone Propionate (Inhala (Flovent Diskus), 1 PUFF INH BID Gabapentin (Gabapentin), 600 MG PO TID Hydroxyzine Hcl (Atarax), 75 MG PO HS Lamotrigine (Lamictal), 200 MG PO DAILY Levothyroxine Sodium (Levothyroxine Sodium), 50 MCG PO QAM Loratadine (Claritin), 10 MG PO QAM Meloxicam (Mobic), 15 MG PO DAILY Norethin Acet & Estrad-Fe (Gildess Fe ), 1 TAB PO QAM Pantoprazole (Pantoprazole Sodium), 40 MG PO QAM Prazosin Hcl (Prazosin), 4 MG PO HS Topiramate (Topamax), 200 MG PO BID Venlafaxine Hcl (Effexor Extended Rel), 150 MG PO QAM Scheduled PRN Albuterol Sulfate (Proair Respiclick), 2-4 PUFFS INH Q4H PRN for Cough/ Shortness Of Breath Epinephrine (Epipen), 0.3 MG IM UD PRN for ALLERGIC REACTION Fluticasone Propionate (Fluticasone Propionate), 2 SPRAYS JERRY QAM PRN for Nasal Congestion Mupirocin 2% (Bactroban 2%), 1 APPLN TOP UD PRN for Skin Impairment Rizatriptan Benzoate (Rizatriptan Benzoate), 10 MG PO UD PRN for Migraine Physical Exam Vital Signs Date Time Temp Pulse Resp B/P (MAP) Pulse Ox O2 Delivery O2 Flow Rate FiO2 03/07/17 00:18 75 16 141/90 97 Room Air 03/06/17 22:40 36.8 87 20 139/95 98 Room Air Physical Exam VITALS: Vitals are noted on the nurse's note and reviewed by myself. Vital signs hypertensive GENERAL: White female, in no acute distress, nondiaphoretic, well-developed well -nourished. SKIN: Capillary reflex less than 2 seconds. HEENT: Normocephalic. PERRLA. EOMI. Nares patent. Mucous membranes moist. Neck is supple without nuchal rigidity. HEART: Regular rate and rhythm LUNGS: Clear to auscultation bilaterally without wheezes, rales or rhonchi. No retractions or accessory muscle use. ABDOMEN: Positive bowel sounds x 4. Normal tympanic percussion. Soft, nontender, without masses or organomegaly. Hankins sign negative. No guarding or rebound tenderness. MUSCULOSKELETAL: No gross musculoskeletal defects. No pedal edema. No calf tenderness. No thoracic tenderness. Minimal tenderness L4 and L5. Negative straight leg raise bilaterally. I did have the patient stand but she states she is unable to walk for me. She would not try. Patient was able to plantarflex and dorsiflex without difficulties. She was able to feel me touching her bilateral lower legs. NEURO: Patient was alert and oriented to person place and time. Normal sensation to light and sharp touch. Deep tendon reflexes 2+ patella bilaterally. Medical Decision & Procedures Laboratory Results 03/07/17 00:09 Red Blood Count 4.16, Mean Corpuscular Volume 89.9, Mean Corpuscular Hemoglobin 30.8, Mean Corpuscular Hemoglobin Concent 34.2, Mean Platelet Volume 9.1, Neutrophils (%) (Auto) 53.2, Lymphocytes (%) (Auto) 36.2, Monocytes (%) (Auto) 7.7, Eosinophils (%) (Auto) 1.8, Basophils (%) (Auto) 0.6, Neutrophils # (Auto) 5.12, Lymphocytes # (Auto) 3.49, Monocytes # (Auto) 0.74, Eosinophils # (Auto) 0.17, Basophils # (Auto) 0.06 03/07/17 00:09 Test 03/07/17 00:09 White Blood Count 9.63 K/uL (4.8-10.8) Red Blood Count 4.16 M/uL (4.2-5.4) Hemoglobin 12.8 g/dL (12.0-16.0) Hematocrit 37.4 % (37-47) Mean Corpuscular Volume 89.9 fL (80-100) Mean Corpuscular Hemoglobin 30.8 pg (25-34) Mean Corpuscular Hemoglobin Concent 34.2 g/dl (32-36) Platelet Count 355 K/uL (130-400) Mean Platelet Volume 9.1 fL (7.4-10.4) Neutrophils (%) (Auto) 53.2 % Lymphocytes (%) (Auto) 36.2 % Monocytes (%) (Auto) 7.7 % Eosinophils (%) (Auto) 1.8 % Basophils (%) (Auto) 0.6 % Neutrophils # (Auto) 5.12 K/uL (1.4-6.5) Lymphocytes # (Auto) 3.49 K/uL (1.2-3.4) Monocytes # (Auto) 0.74 K/uL (0.11-0.59) Eosinophils # (Auto) 0.17 K/uL (0-0.5) Basophils # (Auto) 0.06 K/uL (0-0.2) RDW Standard Deviation 42.1 fL (36.4-46.3) RDW Coefficient of Variation 13.0 % (11.5-14.5) Immature Granulocyte % (Auto) 0.5 % Immature Granulocyte # (Auto) 0.05 K/uL (0.00-0.02) Anion Gap 11.0 mmol/L (3-11) Est Creatinine Clear Calc Drug Dose 105.0 ml/min Estimated GFR () 107.2 Estimated GFR (Non- 92.5 BUN/Creatinine Ratio 19.0 (10-20) Calcium Level 8.7 mg/dl (8.5-10.1) Human Chorionic Gonadotropin, Qual NEG (NEG) Chemistry Specimen Hemolysis Medications Administered Medications (Trade) Dose Ordered Sig/Shelli Route Start Time Stop Time Status Last Admin Dose Admin Ketorolac Tromethamine (Toradol Inj) 15 mg NOW STAT IV 03/06/17 22:43 03/06/17 22:45 DC 03/07/17 00:17 15 MG Ondansetron HCl (Zofran Inj) 4 mg NOW STAT IV 03/06/17 22:52 03/06/17 22:53 DC 03/07/17 00:17 4 MG ED Course Prior records/ancillary studies reviewed. Triage Nursing notes reviewed. Additional history obtained from EMS. The patient's history was concerning for back pain. Differential diagnosis: Etiologies such as musculoskeletal, disc herniation, fracture, aortic disease, metastatic disease, cord compression, discitis, infection, renal colic, gastrointestinal, acute exacerbation of chronic back pain, sciatica, cauda equina, as well as others were entertained. Physical findings: As above. ER treatment provided: toradol, zofran On reassessment the patient felt better. Diagnostics interpreted by me: The labs revealed stable H&H, stable creatine Imaging studies: MRI L SPINE : Compared to 10/09/16. No significant change compared to prior study with disc protrusion and small annular tear at L4-5. Patent central canal or neuroforamen.. No acute fracture or subluxation. Radiologist: Rita Baez M.D. Consultation: A consultation was placed with Dr. Petit. The case was discussed and diagnostics were reviewed. He will evaluate the patient for possible admission. This appears to be consistent with severe back pain and inability to walk. Patient had an unchanged MRI. She was neurovascularly and neurologically intact. She refused to try to walk for me. She is able to lift her legs and plantarflex and dorsiflex. Patient is requesting admission with referral to rehabilitation for further valuation and treatment of her back pain. She will be evaluated by medicine. By the evaluation outlined above emergent etiologies such as fracture, aortic disease, metastatic disease, infection, renal colic, gastrointestinal, cord compression, cauda equina, as well as others were deemed relatively unlikely. The pt informed about the findings as listed above. All questions were answered and pleased with the treatment. case reviewed with my Attending Medical Decision as above [place] Drug Monitoring Program Search Results: patient reviewed within database, no issues identified Medication Reconcilliation Current Medication List: was personally reviewed by me Blood Pressure Screening Patient's blood pressure: Elevated blood pressure Blood pressure disposition: Elevated BP felt to be situational Impression Primary Impression: Ambulatory dysfunction Additional Impressions: Leg weakness, bilateral Low back pain Departure Information Dispostion Being Evaluated By Hospitalist Condition GOOD Referrals Dennis Khan M.D. (PCP) Patient Instructions My [facility] Problem Qualifiers
[2017-03-07 03:25] VITALS: BP 129/78; PULSE 95; TEMP 37; O2SAT 96; Ht 162.6 cm; Wt 97.0 kg
[2017-03-07] MEDS: LEVOTHYROXINE 50 MCG TAB PO SCH (06:31)
[2017-03-07 06:32] LABS: HEMATOCRIT 36.2 % (37-47); MEAN CELL VOLUME 90.3 fL (80-100); MEAN CORPUSCULAR HEMOGLOBIN 30.2 pg (25-34); MEAN CORPUSCULAR HGB CONC 33.4 g/dl (32-36); MEAN PLATELET VOLUME 8.6 fL (7.4-10.4); PLATELET COUNT 286 K/uL (130-400); RED BLOOD COUNT 4.01 M/uL (4.2-5.4); WHITE BLOOD COUNT 9.84 K/uL (4.8-10.8)
[2017-03-07 06:58] LABS: BUN/CREATININE RATIO 15.8 (10-20); CALCIUM 8.6 mg/dl (8.5-10.1); CREATININE 0.9 mg/dl (0.60-1.20); POTASSIUM 3.5 mmol/L (3.5-5.1)
--- NOTE | 2017-03-07 07:22 | DIAGNOSTIC IMAGING REPORT ---
MRI LUMBAR SPINE W/O CONTRAST CLINICAL HISTORY: severe LBP, pt states can't walk BILATERAL LEG NUMBNESS. TECHNIQUE: Sagittal and axial T1, T2 and STIR images were obtained. COMPARISON STUDY: No previous studies for comparison. OBSERVATIONS: The vertebral bodies and posterior elements appear intact. There is no abnormal bony signal present to suggest a marrow replacement process. L1-2: No disc protrusions or extrusions. No evidence of spinal canal or neural foraminal compromise. L2-3: No disc protrusions or extrusions. No evidence of spinal canal or neural foraminal compromise. L3-4: No disc protrusions or extrusions. No evidence of spinal canal or neural foraminal compromise. L4-5: There is a small broad-based central disc protrusion with slight effacement of the anterior thecal sac. There is no significant foraminal narrowing. L5-S1: No disc protrusions or extrusions. No evidence of spinal canal or neural foraminal compromise. The conus medullaris and cauda equina appear normal. IMPRESSION: Small broadbase disc protrusion at the L4-5 level. No significant spinal or foraminal stenosis. Electronically signed by: Gray Schultz M.D. 03/07/2017 7:21 AM Dictated Date/Time: 03/07/2017 7:14 AM
[2017-03-07 07:35] VITALS: BP 142/93; PULSE 84; TEMP 36.9; O2SAT 97
[2017-03-07] MEDS: PANTOprazole SOD 40 MG TAB PO SCH (08:24)
[2017-03-07] MEDS: GABAPENTIN 600 MG TAB PO SCH ×3 (08:26→20:39)
[2017-03-07] MEDS: MELOXICAM 7.5 MG TAB PO SCH (08:26)
[2017-03-07] MEDS: TOPIRAMATE 100 MG TAB PO SCH ×2 (08:27→20:39)
[2017-03-07] MEDS: FERROUS SULFATE 325 MG TAB PO SCH (08:27)
[2017-03-07] MEDS: VENLAFAXINE HCL XR 150 MG CAPXR PO SCH (08:27)
[2017-03-07] MEDS: DICYCLOMINE HCL 20 MG TAB PO SCH ×2 (08:27→20:39)
[2017-03-07] MEDS: LORATADINE 10 MG TAB PO SCH (08:28)
[2017-03-07] MEDS: CYANOCOBALAMIN 500 MCG TAB (VIT B-12) PO SCH (08:28)
[2017-03-07] MEDS: CYCLOBENZAPRINE HCL 10 MG TAB PO SCH ×2 (08:30→20:39)
[2017-03-07] MEDS: HEPARIN SOD 5000 UNIT/0.5 ML CARP SQ SCH ×3 (08:34→21:44)
[2017-03-07] MEDS: KETOROLAC TROMETHAMINE 30 MG/ML VIAL IV PRN ×3 (08:40→21:56)
[2017-03-07] MEDS ORDERED: POTASSIUM CHLORIDE 10 MEQ TABCR PO ONE (14:00)
--- NOTE | 2017-03-07 14:08 | Progress Note ---
Internal Med Progress Note Date of Service: Mar 07, 2017. Provider Documentation: SUBJECTIVE: Seen and examined at bedside States having lower back pain with numbness and tingling in B/L feet (Chronic) Denies chest pain, SOB, dizziness, abd pain No other complaints OBJECTIVE: Vital Signs-as noted below Physical Exam: General Appearance:Moderately built and nourished, no apparent distress Head: normocephalic, Atraumatic Eyes: normal inspection, EOMI, PERRL Neck: supple, Trachea midline Respiratory/Chest: Normal breath sounds, CTA Cardiovascular: S1, S2, No murmur Abdomen/GI:Soft, Non tender, Bowel sounds present Spine: +Tenderness at lower back Extremities/Musculoskelatal:normal inspection, no edema Neurologic/Psych:AAOX3, grossly no focal neurological deficits Skin: normal color, warm Lab data as noted below. ASSESSMENT & PLAN: Patient is a 42 yr female with a PMH of anxiety/depression, bipolar disorder, fibromyalgia, and chronic back pain presents with worsening back pain and numbness/tingling in bilateral lower extremities Lumbago: Secondary to disc protrusion MRI spine: Small broadbase disc protrusion at the L4-5 level. No significant spinal or foraminal stenosis. no surgical intervention as per outpatient ortho notes Also follows with pain management as outpatient Pain control Flexeril PT/OT Plan to discharge to [facility] if she qualifies Will consider Ortho eval if necessary Hypothyroidism: Continue Levothyroxine Anxiety/Depression continue current medications Bipolar Disorder continue Lamictal DVT Px SQ heparin Code Status: FULL CODE Disposition: Plan to discharge to rehab facility if qualifies PROCEDURES: MRI L-spine: Small broadbase disc protrusion at the L4-5 level. No significant spinal or foraminal stenosis. Vital Signs: Date Time Temp Pulse Resp B/P (MAP) Pulse Ox O2 Delivery O2 Flow Rate FiO2 03/07/17 08:00 Room Air 03/07/17 07:35 36.9 84 18 142/93 (109) 97 03/07/17 03:25 37.0 95 16 129/78 96 Room Air 03/07/17 01:56 82 16 127/87 97 03/07/17 00:18 75 16 141/90 97 Room Air 03/06/17 22:40 36.8 87 20 139/95 98 Room Air Lab Results: Results Past 24 Hours Test 03/07/17 00:09 03/07/17 06:11 Range/Units White Blood Count 9.63 9.84 4.8-10.8 K/uL Red Blood Count 4.16 4.01 4.2-5.4 M/uL Hemoglobin 12.8 12.1 12.0-16.0 g/dL Hematocrit 37.4 36.2 37-47 % Mean Corpuscular Volume 89.9 90.3 80-100 fL Mean Corpuscular Hemoglobin 30.8 30.2 25-34 pg Mean Corpuscular Hemoglobin Concent 34.2 33.4 32-36 g/dl Platelet Count 355 286 130-400 K/uL Mean Platelet Volume 9.1 8.6 7.4-10.4 fL Neutrophils (%) (Auto) 53.2 % Lymphocytes (%) (Auto) 36.2 % Monocytes (%) (Auto) 7.7 % Eosinophils (%) (Auto) 1.8 % Basophils (%) (Auto) 0.6 % Neutrophils # (Auto) 5.12 1.4-6.5 K/uL Lymphocytes # (Auto) 3.49 1.2-3.4 K/uL Monocytes # (Auto) 0.74 0.11-0.59 K/uL Eosinophils # (Auto) 0.17 0-0.5 K/uL Basophils # (Auto) 0.06 0-0.2 K/uL RDW Standard Deviation 42.1 42.8 36.4-46.3 fL RDW Coefficient of Variation 13.0 13.0 11.5-14.5 % Immature Granulocyte % (Auto) 0.5 % Immature Granulocyte # (Auto) 0.05 0.00-0.02 K/uL Sodium Level 139 139 136-145 mmol/L Potassium Level 4.3 3.5 3.5-5.1 mmol/L Chloride Level 107 109 98-107 mmol/L Carbon Dioxide Level 21 21 21-32 mmol/L Anion Gap 11.0 9.0 3-11 mmol/L Blood Urea Nitrogen 15 14 7-18 mg/dl Creatinine 0.78 0.90 0.60-1.20 mg/dl Est Creatinine Clear Calc Drug Dose 105.0 90.2 ml/min Estimated GFR () 107.2 90.1 Estimated GFR (Non- 92.5 77.8 BUN/Creatinine Ratio 19.0 15.8 10-20 Random Glucose 90 92 70-99 mg/dl Calcium Level 8.7 8.6 8.5-10.1 mg/dl Human Chorionic Gonadotropin, Qual NEG NEG Chemistry Specimen Hemolysis Prothrombin Time 11.0 9.0-12.0 SECONDS Prothromb Time International Ratio 1.0 0.9-1.1
[2017-03-07 15:38] LABS: MANUAL MICROSCOPIC REQUIRED? NO; REVIEW REQ? NO; URINE APPEARANCE CLOUDY (CLEAR); URINE BILIRUBIN NEG (NEG); URINE COLOR YELLOW; URINE EPITHELIAL CELL AUTO >30 /lpf (0-5); URINE NITRITE NEG (NEG); URINE PH 6.5 (4.5-7.5); URINE SPECIFIC GRAVITY 1.021 (1.000-1.030); UROBILINOGEN NEG (NEG)
[2017-03-07 16:03] VITALS: BP 151/87; PULSE 74; TEMP 36.9; O2SAT 98
[2017-03-07] MEDS: hydrOXYzine HCL 25 MG TAB PO SCH (20:39)
[2017-03-07] MEDS: PRAZOSIN HCL 1 MG CAP PO SCH (20:39)
[2017-03-07] MEDS: [UNRECOGNIZED DRUG - OTHER] SCH ×2 (21:30→21:56)
[2017-03-07 23:45] VITALS: BP 135/75; PULSE 80; TEMP 36.9; O2SAT 97
[2017-03-08] MEDS: LEVOTHYROXINE 50 MCG TAB PO SCH (06:51)
[2017-03-08] MEDS: HEPARIN SOD 5000 UNIT/0.5 ML CARP SQ SCH ×3 (07:09→21:40)
[2017-03-08 07:15] VITALS: BP 148/90; PULSE 81; TEMP 36.7; O2SAT 97
[2017-03-08] MEDS: [UNRECOGNIZED DRUG - OTHER] SCH ×2 (07:24→15:24)
[2017-03-08] MEDS: TOPIRAMATE 100 MG TAB PO SCH ×2 (08:23→21:36)
[2017-03-08] MEDS: FERROUS SULFATE 325 MG TAB PO SCH (08:23)
[2017-03-08] MEDS: LORATADINE 10 MG TAB PO SCH (08:23)
[2017-03-08] MEDS: VENLAFAXINE HCL XR 150 MG CAPXR PO SCH (08:23)
[2017-03-08] MEDS: PANTOprazole SOD 40 MG TAB PO SCH (08:23)
[2017-03-08] MEDS: CYANOCOBALAMIN 500 MCG TAB (VIT B-12) PO SCH (08:23)
[2017-03-08] MEDS: DICYCLOMINE HCL 20 MG TAB PO SCH ×2 (08:23→21:34)
[2017-03-08] MEDS: MELOXICAM 7.5 MG TAB PO SCH (08:24)
[2017-03-08] MEDS: GABAPENTIN 600 MG TAB PO SCH ×3 (08:24→21:35)
[2017-03-08] MEDS: CYCLOBENZAPRINE HCL 10 MG TAB PO SCH ×2 (09:01→21:34)
[2017-03-08] MEDS: KETOROLAC TROMETHAMINE 30 MG/ML VIAL IV PRN ×2 (10:29→17:34)
[2017-03-08 11:25] VITALS: BP 147/93; PULSE 81; O2SAT 97
--- NOTE | 2017-03-08 13:41 | Progress Note ---
Internal Med Progress Note Date of Service: Mar 08, 2017. Vital Signs: Date Time Temp Pulse Resp B/P (MAP) Pulse Ox O2 Delivery O2 Flow Rate FiO2 03/08/17 08:00 Room Air 03/08/17 07:15 36.7 81 18 148/90 (109) 97 Room Air 03/08/17 00:25 Room Air 03/07/17 23:45 36.9 80 17 135/75 (95) 97 Room Air 03/07/17 21:00 Room Air 03/07/17 16:03 36.9 74 18 151/87 (108) 98 Room Air Lab Results: Results Past 24 Hours Test 03/08/17 13:50 Range/Units
--- NOTE | 2017-03-08 13:55 | Progress Note ---
Internal Med Progress Note Date of Service: Mar 08, 2017. Provider Documentation: SUBJECTIVE: Seen and examined at bedside Repots noticing a small blood clot in stools today. Has hemorrhoids Reports low back pain with numbness and tingling in B/L feet (Chronic) Denies chest pain, SOB, dizziness No other complaints OBJECTIVE: Vital Signs-as noted below Physical Exam: General Appearance:Moderately built and nourished, no apparent distress Head: normocephalic, Atraumatic Eyes: normal inspection, EOMI, PERRL Neck: supple, Trachea midline Respiratory/Chest: Normal breath sounds, CTA Cardiovascular: S1, S2, No murmur Abdomen/GI:Soft, Non tender, Bowel sounds present Spine: +Tenderness at lower back Extremities/Musculoskelatal:normal inspection, no edema Neurologic/Psych:AAOX3, grossly no focal neurological deficits Skin: normal color, warm Lab data as noted below. ASSESSMENT & PLAN: Patient is a 42 yr female with a PMH of anxiety/depression, bipolar disorder, fibromyalgia, and chronic back pain presents with worsening back pain and numbness/tingling in bilateral lower extremities Lumbago: Secondary to disc protrusion MRI spine: Small broadbase disc protrusion at the L4-5 level. No significant spinal or foraminal stenosis. no surgical intervention as per outpatient ortho notes Also follows with pain management as outpatient Pain control Flexeril PT/OT Plan to discharge to [facility] if she qualifies Will consider Ortho eval if necessary H/O hemorrhoids Monitor H&H Noticed a small clot in stools No active bleeding HTN: labile monitor Hypothyroidism: Continue Levothyroxine Anxiety/Depression continue current medications Bipolar Disorder continue Lamictal DVT Px SQ heparin Code Status: FULL CODE Disposition: Plan to discharge to rehab facility if qualifies PROCEDURES: MRI L-spine: Small broadbase disc protrusion at the L4-5 level. No significant spinal or foraminal stenosis. Vital Signs: Date Time Temp Pulse Resp B/P (MAP) Pulse Ox O2 Delivery O2 Flow Rate FiO2 03/08/17 08:00 Room Air 03/08/17 07:15 36.7 81 18 148/90 (109) 97 Room Air 03/08/17 00:25 Room Air 03/07/17 23:45 36.9 80 17 135/75 (95) 97 Room Air 03/07/17 21:00 Room Air 03/07/17 16:03 36.9 74 18 151/87 (243) 98 Room Air Lab Results: Results Past 24 Hours Test 03/08/17 13:50 Range/Units
[2017-03-08 14:52] LABS: HEMATOCRIT 37.9 % (37-47)
[2017-03-08 15:39] VITALS: BP 132/86; PULSE 78; TEMP 36.7; O2SAT 96
[2017-03-08] MEDS: PRAZOSIN HCL 1 MG CAP PO SCH (21:33)
[2017-03-08] MEDS: hydrOXYzine HCL 25 MG TAB PO SCH (21:36)
[2017-03-08 23:25] VITALS: BP 146/94; PULSE 74; TEMP 36.8; O2SAT 93
[2017-03-09] MEDS: KETOROLAC TROMETHAMINE 30 MG/ML VIAL IV PRN ×3 (01:20→18:21)
[2017-03-09] MEDS: HEPARIN SOD 5000 UNIT/0.5 ML CARP SQ SCH ×3 (06:15→21:16)
[2017-03-09] MEDS: LEVOTHYROXINE 50 MCG TAB PO SCH (06:18)
[2017-03-09 06:44] LABS: HEMATOCRIT 37.5 % (37-47); MEAN CELL VOLUME 90.6 fL (80-100); MEAN CORPUSCULAR HEMOGLOBIN 30.2 pg (25-34); MEAN CORPUSCULAR HGB CONC 33.3 g/dl (32-36); MEAN PLATELET VOLUME 8.9 fL (7.4-10.4); PLATELET COUNT 304 K/uL (130-400); RED BLOOD COUNT 4.14 M/uL (4.2-5.4); WHITE BLOOD COUNT 8.26 K/uL (4.8-10.8)
[2017-03-09 07:17] LABS: BUN/CREATININE RATIO 24.9 (10-20); CREATININE 0.86 mg/dl (0.60-1.20); POTASSIUM 3.6 mmol/L (3.5-5.1)
[2017-03-09] MEDS: [UNRECOGNIZED DRUG - OTHER] SCH ×3 (07:17→15:46)
[2017-03-09 07:22] VITALS: BP 124/84; PULSE 77; TEMP 36.4; O2SAT 95
[2017-03-09] MEDS: VENLAFAXINE HCL XR 150 MG CAPXR PO SCH (08:10)
[2017-03-09] MEDS: GABAPENTIN 600 MG TAB PO SCH ×3 (08:10→21:11)
[2017-03-09] MEDS: LORATADINE 10 MG TAB PO SCH (08:10)
[2017-03-09] MEDS: PANTOprazole SOD 40 MG TAB PO SCH (08:10)
[2017-03-09] MEDS: CYCLOBENZAPRINE HCL 10 MG TAB PO SCH ×2 (08:10→21:11)
[2017-03-09] MEDS: FERROUS SULFATE 325 MG TAB PO SCH (08:10)
[2017-03-09] MEDS: CYANOCOBALAMIN 500 MCG TAB (VIT B-12) PO SCH (08:11)
[2017-03-09] MEDS: MELOXICAM 7.5 MG TAB PO SCH (08:11)
[2017-03-09] MEDS: TOPIRAMATE 100 MG TAB PO SCH ×2 (08:11→21:12)
[2017-03-09] MEDS: DICYCLOMINE HCL 20 MG TAB PO SCH ×2 (08:11→21:11)
--- NOTE | 2017-03-09 15:15 | Progress Note ---
Internal Med Progress Note Date of Service: Mar 09, 2017. Provider Documentation: SUBJECTIVE: Seen and examined at bedside No recurrence of blood in stools Still has low back pain Denies chest pain, SOB, dizziness No other complaints Awaiting for Insurance Auth OBJECTIVE: Vital Signs-as noted below Physical Exam: General Appearance:Moderately built and nourished, no apparent distress Head: normocephalic, Atraumatic Eyes: normal inspection, EOMI, PERRL Neck: supple, Trachea midline Respiratory/Chest: Normal breath sounds, CTA Cardiovascular: S1, S2, No murmur Abdomen/GI:Soft, Non tender, Bowel sounds present Spine: +Tenderness at lower back Extremities/Musculoskelatal:normal inspection, no edema Neurologic/Psych:AAOX3, grossly no focal neurological deficits Skin: normal color, warm Lab data as noted below. ASSESSMENT & PLAN: Patient is a 42 yr female with a PMH of anxiety/depression, bipolar disorder, fibromyalgia, and chronic back pain presents with worsening back pain and numbness/tingling in bilateral lower extremities Lumbago: Secondary to disc protrusion MRI spine: Small broadbase disc protrusion at the L4-5 level. No significant spinal or foraminal stenosis. no surgical intervention as per outpatient ortho notes Also follows with pain management as outpatient Pain control Flexeril PT/OT: recommends Rehab Plan to discharge to [facility] once approved H/O hemorrhoids H&H stable Noticed a small clot in stools No active bleeding HTN: labile monitor Hypothyroidism: Continue Levothyroxine Anxiety/Depression continue current medications Bipolar Disorder continue Lamictal DVT Px SQ heparin Code Status: FULL CODE Disposition: Plan to discharge to rehab facility once approved PROCEDURES: MRI L-spine: Small broadbase disc protrusion at the L4-5 level. No significant spinal or foraminal stenosis. Vital Signs: Date Time Temp Pulse Resp B/P (MAP) Pulse Ox O2 Delivery O2 Flow Rate FiO2 03/09/17 08:00 Room Air 03/09/17 07:22 36.4 77 18 124/84 (97) 95 Room Air 03/09/17 00:00 Room Air 03/08/17 23:25 36.8 74 21 146/94 (111) 93 Room Air 03/08/17 15:39 36.7 78 18 132/86 (101) 96 Room Air Lab Results: Results Past 24 Hours Test 03/09/17 06:12 Range/Units White Blood Count 8.26 4.8-10.8 K/uL Red Blood Count 4.14 4.2-5.4 M/uL Hemoglobin 12.5 12.0-16.0 g/dL Hematocrit 37.5 37-47 % Mean Corpuscular Volume 90.6 80-100 fL Mean Corpuscular Hemoglobin 30.2 25-34 pg Mean Corpuscular Hemoglobin Concent 33.3 32-36 g/dl RDW Standard Deviation 43.1 36.4-46.3 fL RDW Coefficient of Variation 13.0 11.5-14.5 % Platelet Count 304 130-400 K/uL Mean Platelet Volume 8.9 7.4-10.4 fL Sodium Level 139 136-145 mmol/L Potassium Level 3.6 3.5-5.1 mmol/L Chloride Level 110 98-107 mmol/L Carbon Dioxide Level 20 21-32 mmol/L Anion Gap 10.0 3-11 mmol/L Blood Urea Nitrogen 21 7-18 mg/dl Creatinine 0.86 0.60-1.20 mg/dl Est Creatinine Clear Calc Drug Dose 94.4 ml/min Estimated GFR () 95.2 Estimated GFR (Non- 82.2 BUN/Creatinine Ratio 24.9 10-20 Random Glucose 92 70-99 mg/dl Calcium Level 9.0 8.5-10.1 mg/dl
[2017-03-09 16:04] VITALS: BP 148/83; PULSE 83; TEMP 36.6; O2SAT 96
[2017-03-09] MEDS: hydrOXYzine HCL 25 MG TAB PO SCH (21:08)
[2017-03-09] MEDS: PRAZOSIN HCL 1 MG CAP PO SCH (21:09)
[2017-03-09 23:59] VITALS: BP 131/89; PULSE 72; TEMP 36.8; O2SAT 95
[2017-03-10] MEDS: KETOROLAC TROMETHAMINE 30 MG/ML VIAL IV PRN ×4 (00:27→21:18)
[2017-03-10] MEDS: LEVOTHYROXINE 50 MCG TAB PO SCH (06:05)
[2017-03-10] MEDS: HEPARIN SOD 5000 UNIT/0.5 ML CARP SQ SCH ×3 (06:19→21:17)
[2017-03-10 07:22] VITALS: BP 142/84; PULSE 89; TEMP 36.8; O2SAT 96
[2017-03-10] MEDS: [UNRECOGNIZED DRUG - OTHER] SCH ×3 (07:51→16:00)
[2017-03-10] MEDS: VENLAFAXINE HCL XR 150 MG CAPXR PO SCH (08:11)
[2017-03-10] MEDS: DICYCLOMINE HCL 20 MG TAB PO SCH ×2 (08:11→21:07)
[2017-03-10] MEDS: LORATADINE 10 MG TAB PO SCH (08:11)
[2017-03-10] MEDS: FERROUS SULFATE 325 MG TAB PO SCH (08:12)
[2017-03-10] MEDS: CYCLOBENZAPRINE HCL 10 MG TAB PO SCH ×2 (08:13→21:06)
[2017-03-10] MEDS: GABAPENTIN 600 MG TAB PO SCH ×3 (08:14→21:07)
[2017-03-10] MEDS: MELOXICAM 7.5 MG TAB PO SCH (08:14)
[2017-03-10] MEDS: CYANOCOBALAMIN 500 MCG TAB (VIT B-12) PO SCH (08:15)
[2017-03-10] MEDS: TOPIRAMATE 100 MG TAB PO SCH ×2 (08:15→21:09)
[2017-03-10] MEDS: PANTOprazole SOD 40 MG TAB PO SCH (08:15)
[2017-03-10 14:57] VITALS: BP 148/94; PULSE 79; TEMP 36.6; O2SAT 97
--- NOTE | 2017-03-10 15:37 | Progress Note ---
Internal Med Progress Note Date of Service: Mar 10, 2017. Provider Documentation: SUBJECTIVE: Seen and examined at bedside Awaiting for Insurance Auth Persistent low back pain Denies chest pain, SOB, dizziness No other complaints OBJECTIVE: Vital Signs-as noted below Physical Exam: General Appearance:Moderately built and nourished, no apparent distress Head: normocephalic, Atraumatic Eyes: normal inspection, EOMI, PERRL Neck: supple, Trachea midline Respiratory/Chest: Normal breath sounds, CTA Cardiovascular: S1, S2, No murmur Abdomen/GI:Soft, Non tender, Bowel sounds present Spine: +Tenderness at lower back Extremities/Musculoskelatal:normal inspection, no edema Neurologic/Psych:AAOX3, grossly no focal neurological deficits Skin: normal color, warm Lab data as noted below. ASSESSMENT & PLAN: Patient is a 42 yr female with a PMH of anxiety/depression, bipolar disorder, fibromyalgia, and chronic back pain presents with worsening back pain and numbness/tingling in bilateral lower extremities Lumbago: Secondary to disc protrusion MRI spine: Small broadbase disc protrusion at the L4-5 level. No significant spinal or foraminal stenosis. no surgical intervention as per outpatient ortho notes Also follows with pain management as outpatient Pain control Flexeril PT/OT: recommends Rehab Plan to discharge to [facility] once approved Awaiting for Insurance Auth H/O hemorrhoids H&H stable Noticed a small clot in stools No active bleeding HTN: labile Asymptomatic monitor Hypothyroidism: Continue Levothyroxine Anxiety/Depression continue current medications Bipolar Disorder continue Lamictal DVT Px SQ heparin Code Status: FULL CODE Disposition: Plan to discharge to rehab facility once approved Awaiting for Insurance Auth PROCEDURES: MRI L-spine: Small broadbase disc protrusion at the L4-5 level. No significant spinal or foraminal stenosis. Vital Signs: Date Time Temp Pulse Resp B/P (MAP) Pulse Ox O2 Delivery O2 Flow Rate FiO2 03/10/17 14:57 36.6 79 18 148/94 (112) 97 Room Air 03/10/17 08:30 Room Air 03/10/17 07:22 36.8 89 20 142/84 (103) 96 Room Air 03/10/17 00:00 Room Air 03/09/17 23:59 36.8 72 18 131/89 (103) 95 Room Air 03/09/17 20:00 Room Air 03/09/17 16:04 36.6 83 20 148/83 (104) 96 Room Air 03/09/17 15:57 Room Air
[2017-03-10] MEDS: PRAZOSIN HCL 1 MG CAP PO SCH (21:05)
[2017-03-10] MEDS: hydrOXYzine HCL 25 MG TAB PO SCH (21:08)
[2017-03-10 23:55] VITALS: BP 158/99; PULSE 68; TEMP 36.9; O2SAT 98
[2017-03-11] MEDS: [UNRECOGNIZED DRUG - OTHER] SCH ×3 (01:32→16:00)
[2017-03-11] MEDS: LEVOTHYROXINE 50 MCG TAB PO SCH (05:59)
[2017-03-11] MEDS: HEPARIN SOD 5000 UNIT/0.5 ML CARP SQ SCH ×2 (06:05→14:03)
[2017-03-11 07:14] VITALS: BP 125/84; PULSE 63; TEMP 36.5; O2SAT 96
[2017-03-11 07:43] LABS: HEMATOCRIT 39.1 % (37-47); MEAN CELL VOLUME 90.3 fL (80-100); MEAN CORPUSCULAR HEMOGLOBIN 30.7 pg (25-34); MEAN PLATELET VOLUME 8.8 fL (7.4-10.4); PLATELET COUNT 321 K/uL (130-400); RED BLOOD COUNT 4.33 M/uL (4.2-5.4); WHITE BLOOD COUNT 8.24 K/uL (4.8-10.8)
[2017-03-11 08:10] LABS: BUN/CREATININE RATIO 21.4 (10-20); CALCIUM 9.2 mg/dl (8.5-10.1); CREATININE 0.88 mg/dl (0.60-1.20); POTASSIUM 3.7 mmol/L (3.5-5.1)
[2017-03-11] MEDS: DICYCLOMINE HCL 20 MG TAB PO SCH (08:15)
[2017-03-11] MEDS: LORATADINE 10 MG TAB PO SCH (08:15)
[2017-03-11] MEDS: FERROUS SULFATE 325 MG TAB PO SCH (08:16)
[2017-03-11] MEDS: MELOXICAM 7.5 MG TAB PO SCH (08:16)
[2017-03-11] MEDS: VENLAFAXINE HCL XR 150 MG CAPXR PO SCH (08:16)
[2017-03-11] MEDS: CYCLOBENZAPRINE HCL 10 MG TAB PO SCH (08:16)
[2017-03-11] MEDS: GABAPENTIN 600 MG TAB PO SCH ×2 (08:16→14:03)
[2017-03-11] MEDS: PANTOprazole SOD 40 MG TAB PO SCH (08:17)
[2017-03-11] MEDS: TOPIRAMATE 100 MG TAB PO SCH (08:17)
[2017-03-11] MEDS: CYANOCOBALAMIN 500 MCG TAB (VIT B-12) PO SCH (08:17)
[2017-03-11] MEDS: KETOROLAC TROMETHAMINE 30 MG/ML VIAL IV PRN ×3 (08:21→14:20)
--- NOTE | 2017-03-11 13:15 | Progress Note ---
Internal Med Progress Note Date of Service: Mar 11, 2017. Provider Documentation: SUBJECTIVE: Seen and examined at bedside Insurance has not accepted the patient for rehab placement Patient appealed, awaiting for return call Persistent low back pain No new symptoms Denies chest pain, SOB, dizziness OBJECTIVE: Vital Signs-as noted below Physical Exam: General Appearance:Moderately built and nourished, no apparent distress Head: normocephalic, Atraumatic Eyes: normal inspection, EOMI, PERRL Neck: supple, Trachea midline Respiratory/Chest: Normal breath sounds, CTA Cardiovascular: S1, S2, No murmur Abdomen/GI:Soft, Non tender, Bowel sounds present Spine: +Tenderness at lower back Extremities/Musculoskelatal:normal inspection, no edema Neurologic/Psych:AAOX3, grossly no focal neurological deficits Skin: normal color, warm Lab data as noted below. ASSESSMENT & PLAN: Patient is a 42 yr female with a PMH of anxiety/depression, bipolar disorder, fibromyalgia, and chronic back pain presents with worsening back pain and numbness/tingling in bilateral lower extremities Lumbago: Secondary to disc protrusion MRI spine: Small broadbase disc protrusion at the L4-5 level. No significant spinal or foraminal stenosis. no surgical intervention as per outpatient ortho notes Also follows with pain management as outpatient Pain control Flexeril Plan to discharge to Rehab if qualifies or plan to DC home with home health H/O hemorrhoids H&H stable Noticed a small clot in stools No recurrence of bleeding HTN: labile Asymptomatic monitor Hypothyroidism: Continue Levothyroxine Anxiety/Depression continue current medications Bipolar Disorder continue Lamictal DVT Px SQ heparin Code Status: FULL CODE Disposition: Plan to discharge to rehab facility if qualifies Follow up with Primary Care Physician on 03/20/17 at 10:25am Seek immediate medical attention if your symptoms reoccur or worsen PROCEDURES: MRI L-spine: Small broadbase disc protrusion at the L4-5 level. No significant spinal or foraminal stenosis. Vital Signs: Date Time Temp Pulse Resp B/P (MAP) Pulse Ox O2 Delivery O2 Flow Rate FiO2 03/11/17 10:15 Room Air 03/11/17 07:14 36.5 63 16 125/84 (98) 96 Room Air 03/11/17 00:00 Room Air 03/10/17 23:55 36.9 68 18 158/99 (118) 98 Room Air 03/10/17 20:00 Room Air 03/10/17 15:46 Room Air 03/10/17 14:57 36.6 79 18 148/94 (112) 97 Room Air Lab Results: Results Past 24 Hours Test 03/11/17 06:54 Range/Units White Blood Count 8.24 4.8-10.8 K/uL Red Blood Count 4.33 4.2-5.4 M/uL Hemoglobin 13.3 12.0-16.0 g/dL Hematocrit 39.1 37-47 % Mean Corpuscular Volume 90.3 80-100 fL Mean Corpuscular Hemoglobin 30.7 25-34 pg Mean Corpuscular Hemoglobin Concent 34.0 32-36 g/dl RDW Standard Deviation 42.3 36.4-46.3 fL RDW Coefficient of Variation 12.8 11.5-14.5 % Platelet Count 321 130-400 K/uL Mean Platelet Volume 8.8 7.4-10.4 fL Sodium Level 140 136-145 mmol/L Potassium Level 3.7 3.5-5.1 mmol/L Chloride Level 108 98-107 mmol/L Carbon Dioxide Level 21 21-32 mmol/L Anion Gap 11.0 3-11 mmol/L Blood Urea Nitrogen 19 7-18 mg/dl Creatinine 0.88 0.60-1.20 mg/dl Est Creatinine Clear Calc Drug Dose 92.3 ml/min Estimated GFR () 92.6 Estimated GFR (Non- 79.9 BUN/Creatinine Ratio 21.4 10-20 Random Glucose 89 70-99 mg/dl Calcium Level 9.2 8.5-10.1 mg/dl
--- NOTE | 2017-03-11 13:18 | Discharge Instructions ---
Discharge Instructions Date of Service Mar 11, 2017. Admission Reason for Admission: Leg Numbness, Back Pain Discharge Discharge Diagnosis / Problem: Lumbago Discharge Goals Goal(s): Decrease discomfort, Improve function Activity Recommendations Activity Limitations: resume your previous activity Exercise/Sports Limitations: as tolerated . Instructions / Follow-Up Instructions / Follow-Up Follow up with Primary Care Physician on 03/20/17 at 10:25am Seek immediate medical attention if your symptoms reoccur or worsen Current Hospital Diet Patient's current hospital diet: Regular Diet Discharge Diet Recommended Diet: Regular Diet Pending Studies Studies pending at discharge: no Laboratory Results Lipid Panel Test 01/09/17 05:11 Range/Units Triglycerides Level 123 0-150 mg/dl Cholesterol Level 135 0-200 mg/dl HDL Cholesterol 42 mg/dl Cholesterol/HDL Ratio 3.2 LDL Cholesterol, Calculated 68 mg/dl Medical Emergencies . Who to Call and When: Medical Emergencies: If at any time you feel your situation is an emergency, please call 911 immediately. . Non-Emergent Contact Non-Emergency issues call your: Primary Care Provider Call Non-Emergent contact if: you have a fever, your pain is worsening, your pain is unusual for you, your pain is concerning you, you have any medication questions Seek immediate medical attention if your symptoms reoccur or worsen . . "Provider Documentation" section prepared by Jose Escalera. . VTE Core Measure Inpt VTE Proph given/why not?: Unfractionated heparin SQ
--- NOTE | 2017-03-11 15:12 | Discharge Summary ---
Discharge Summary Date of Service Mar 11, 2017. Discharge Summary Admission Date: Mar 07, 2017 at 00:46 Discharge Date: Mar 11, 2017 Discharge Disposition: Home with services Principal Diagnosis: Lumbago Procedures: MRI L-spine Consultations: None Pending Studies/Follow-Up: Follow up with Primary Care Physician on 03/20/17 at 10:25am Seek immediate medical attention if your symptoms reoccur or worsen Medication Reconciliation Continued Medications: Albuterol Sulfate (Proair Respiclick) 108 Mcg/Act Aer 2-4 PUFFS INH Q4H PRN for Cough/Shortness Of Breath Cyanocobalamin (Vitamin B-12) 1,000 Mcg Tab 1000 MCG PO QAM, TAB Cyclobenzaprine Hcl (Flexeril) 10 Mg Tab 10 MG PO HS, TAB Cyclobenzaprine Hcl (Flexeril) 10 Mg Tab 5 MG PO QAM, TAB Dicyclomine HCl (Dicyclomine HCl) 20 Mg Tab 20 MG PO BID Epinephrine (Epipen) 0.3 Mg/0.3 Ml Inj 0.3 MG IM UD PRN for ALLERGIC REACTION Ferrous Sulfate (Ferrous Sulfate) 325 Mg Tab 325 MG PO DAILY Fluticasone Propionate (Fluticasone Propionate) 120 Sprays/6000 Mcg Inha 2 SPRAYS JERRY QAM PRN for Nasal Congestion Fluticasone Propionate (Inhala (Flovent Diskus) 250 Mcg/Blist Aer 1 PUFF INH BID Gabapentin (Gabapentin) 600 Mg Tab 600 MG PO TID Hydroxyzine Hcl (Atarax) 25 Mg Tab 75 MG PO HS, TAB Lamotrigine (Lamictal) 200 Mg Tab 200 MG PO DAILY, TAB Levothyroxine Sodium (Levothyroxine Sodium) 50 Mcg Tab 50 MCG PO QAM Loratadine (Claritin) 10 Mg Tab 10 MG PO QAM, TAB Meloxicam (Mobic) 15 Mg Tab 15 MG PO DAILY, TAB Mupirocin 2% (Bactroban 2%) 30 Gm Cr 1 APPLN TOP UD PRN for Skin Impairment, TUBE Norethin Acet & Estrad-Fe (Gildess Fe 1.09/11) 1 Tab Tab 1 TAB PO QAM Pantoprazole (Pantoprazole Sodium) 40 Mg Tab 40 MG PO QAM Prazosin Hcl (Prazosin) 2 Mg Cap 4 MG PO HS Rizatriptan Benzoate (Rizatriptan Benzoate) 10 Mg Tab 10 MG PO UD PRN for Migraine TAKE ONE TABLET AT ONSET OF MIGRAINE HEADACHE, MAY REPEAT EVERY 2 HOURS IF NEEDED. MAXIMUM 3 TABLETS OVER 24 HOURS. Topiramate (Topamax) 100 Mg Tab 200 MG PO BID, TAB Venlafaxine Hcl (Effexor Extended Rel) 150 Mg Capcr 150 MG PO QAM Admission Information HPI (per Admitting provider): This is a 42 year old female with a PMH of anxiety/depression, bipolar disorder , fibromyalgia, and chronic back pain presents with worsening back pain and numbness/tingling in b/l LE. She has had this back pain for about a year. Has seen orthopedic surgery - was told no surgical intervention needed and should take part with therapy. Patient states that therapy did not help. She has been taking Flexeril and Mobic for the pain, but it does not work. States she has a hard time getting up stairs. She does not want to go home and prefers a rehab facility. Physical Exam (per Admitting): General Appearance: no apparent distress, + obese Head: normocephalic, atraumatic Eyes: normal inspection ENT: hearing grossly normal Respiratory/Chest: lungs clear, normal breath sounds, no respiratory distress, no accessory muscle use Cardiovascular: regular rate, rhythm, no edema, no gallop, no JVD, no murmur , normal peripheral pulses Abdomen/GI: normal bowel sounds, non tender, soft Back: + pertinent finding (decreased ROM/painful ROM) Extremities/Musculoskelatal: normal inspection, no calf tenderness, normal capillary refill, no pedal edema, normal range of motion 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 No significant spinal or foraminal stenosis. no surgical intervention as per outpatient ortho notes Also follows with pain management as outpatient Pain control Flexeril Plan to discharge to Rehab if qualifies or plan to DC home with home health H/O hemorrhoids H&H stable Noticed a small clot in stools No recurrence of bleeding HTN: labile Asymptomatic monitor Hypothyroidism: Continue Levothyroxine Anxiety/Depression continue current medications Bipolar Disorder continue Lamictal DVT Px SQ heparin Code Status: FULL CODE Disposition: Plan to discharge to home with home health Follow up with Primary Care Physician on 03/20/17 at 10:25am Seek immediate medical attention if your symptoms reoccur or worsen PROCEDURES: MRI L-spine: Small broadbase disc protrusion at the L4-5 level. No significant spinal or foraminal stenosis. Total time spent on discharge = 35 minutes This includes examination of the patient, discharge planning, medication reconciliation, and communication with other providers. Discharge Instructions Discharge Instructions Date of Service Mar 11, 2017. Admission Reason for Admission: Leg Numbness, Back Pain Discharge Discharge Diagnosis / Problem: Lumbago Discharge Goals Goal(s): Decrease discomfort, Improve function Activity Recommendations Activity Limitations: resume your previous activity Exercise/Sports Limitations: as tolerated . Instructions / Follow-Up Instructions / Follow-Up Follow up with Primary Care Physician on 03/20/17 at 10:25am Seek immediate medical attention if your symptoms reoccur or worsen Current Hospital Diet Patient's current hospital diet: Regular Diet Discharge Diet Recommended Diet: Regular Diet Pending Studies Studies pending at discharge: no Laboratory Results Lipid Panel Test 01/09/17 05:11 Range/Units Triglycerides Level 123 0-150 mg/dl Cholesterol Level 135 0-200 mg/dl HDL Cholesterol 42 mg/dl Cholesterol/HDL Ratio 3.2 LDL Cholesterol, Calculated 68 mg/dl Medical Emergencies . Who to Call and When: Medical Emergencies: If at any time you feel your situation is an emergency, please call 911 immediately. . Non-Emergent Contact Non-Emergency issues call your: Primary Care Provider Call Non-Emergent contact if: you have a fever, your pain is worsening, your pain is unusual for you, your pain is concerning you, you have any medication questions Seek immediate medical attention if your symptoms reoccur or worsen . . "Provider Documentation" section prepared by Jose Escalera. . VTE Core Measure Inpt VTE Proph given/why not?: Unfractionated heparin SQ <Electronically signed by Jose Escalera MD> Signed: 03/11/17 0768 Signed: The status of this report is Signed * If report status is Draft, the document has not been finalized by the responsible provider.
[2017-03-11 15:21] VITALS: BP 112/77; PULSE 84; TEMP 36.8; O2SAT 98
[2017-03-11 15:38] VITALS: BP 145/89; PULSE 76; TEMP 36.7; O2SAT 96
[2017-03-11 16:07] VITALS: BP 147/95; PULSE 74; O2SAT 98
[2017-03-11 17:09] VITALS: BP 147/95; PULSE 74; TEMP 36.7; O2SAT 98
--- NOTE | 2017-03-11 18:03 | Progress Note ---
Progress Note Date of Service Mar 11, 2017. Progress Note Patient was denied by Insurance for rehab placement earlier today. She is in the process of appealing. Patient reports an unwitnessed fall and denies head trauma. PT/OT re-evaluated the patient and no change was found on exam. Patient 's reported symptoms do not correlate with physical exam. Off note patient refused to get discharged from ED and requested for admission.
== END 2017-03-11 19:25 | disposition home health service (06) | DRG 552 ==
LOC: EDBD 22:34 → C.EDB 22:36 → C.4E 03-07 00:46 → ENRESERV 03-07 01:32
PROVIDERS: ADMIT Family Medicine; ATTEND Internal Medicine
DX: M51.26 Other intervertebral disc displacement, lumbar region (principal); F31.81 Bipolar II disorder; R26.2 Difficulty in walking, not elsewhere classified; I10 Essential (primary) hypertension; E03.9 Hypothyroidism, unspecified; F41.9 Anxiety disorder, unspecified; J45.909 Unspecified asthma, uncomplicated; M79.7 Fibromyalgia; G43.909 Migraine, unspecified, not intractable, without status migrainosus; E66.9 Obesity, unspecified; Z51.81 Encounter for therapeutic drug level monitoring; Z79.899 Other long term (current) drug therapy; Z68.36 Body mass index [BMI] 36.0-36.9, adult; Z83.3 Family history of diabetes mellitus

== ENCOUNTER 2017-03-25 20:46 | Emergency (ER) | payer OTHER ==
[~2017-03-25] VITALS: Ht 162.6 cm; Wt 96.0 kg
[~2017-03-25 20:46] MED LIST changes: -EPP3/2 IM; +LAMO200T35 PO; -LAMO200T38 PO
[2017-03-25 20:49] VITALS: TEMP 37.3; Ht 162.6 cm; Wt 96.0 kg
--- NOTE | 2017-03-25 21:35 | EMERGENCY ROOM VISIT NOTE ---
ED Visit Note First contact with patient: 21:30 CHIEF COMPLAINT: Low back pain HISTORY OF PRESENT ILLNESS: This 42-year-old female patient presents to the emergency department via wheelchair complaining of pain in the low back which began at 5:30 this morning. The patient states the pain woke her from sleep, and radiates down her right hip. While attempting to elicit a history, the patient's phone began ringing, and she states "hold on, it is my friend" and begins a conversation on the phone with her friend. I advised the patient that I would be back in to see her when she is off the phone. Registration did go in to see the patient, and when she came out, I asked that the patient was offered the phone. She states the patient was still on the phone, and was having a conversation the entire time she was being registered. Approximately 10 minutes later, I did check on the patient again, and she continued to be on the phone. 20 minutes after her initial evaluation, the patient did bring the call shields, and wanted to let me know that she was off of the phone and ready to be seen. She states her back pain is now constant and worse with movement. The patient notes the pain as sharp and a 10/10. The patient has taken her usual gabapentin and mobic without relief of the pain. She states that while the pain was severe this morning and did awaken her from sleep, it did seem to improve after she went to the chiropractor today. She states then later this evening the pain became much worse, and at this time her PCP, who does manage her chronic back pain, was unable to see her. The patient denies any loss of control of their bowel or bladder functions. There has been no leg numbness or weakness, and no change in sensation. No nausea or vomiting or abdominal pain. No chest pain or shortness of breath. The patient is not an IV drug user, and denies any recent illness. The patient does have a history of a disc protrusion at L4-L5. She does have a history of chronic low back pain. The patient was recently admitted to the hospital for approximately 5 days due to her severe low back pain. No dysuria or increased urinary frequency. REVIEW OF SYSTEMS: A 10 system review of systems was performed with positives and pertinent negatives listed in the history of present illness. All other systems were reviewed and are negative. ALLERGIES: Bee stings, morphine MEDICATIONS: Albuterol, vitamin B12, Flexeril, dicyclomine, EpiPen, ferrous sulfate, Flonase, Flovent, gabapentin, hydroxyzine, Lamictal, Synthroid, Claritin, Mobic, mupirocin, Gildess FE, Protonix, prazosin, rizatriptan, Topamax , Effexor PMH: Asthma, chronic low back pain, migraines, hypothyroidism, GERD SOCIAL HISTORY: The patient lives locally with family. She denies drug, alcohol , tobacco use. PHYSICAL EXAM: VITALS: Vitals are noted on the nurse's note and reviewed by myself. Vital signs stable. GENERAL: This is a 42-year-old obese white female, in no acute distress, nondiaphoretic, well-developed well-nourished. SKIN: The skin was without rashes, erythema, edema, or bruising. Capillary refill less than 2 seconds. NECK: Supple without nuchal rigidity. No cervical spine tenderness. No paraspinous muscle tenderness. HEART: Regular rate and rhythm without murmurs gallops or rubs. LUNGS: Clear to auscultation bilaterally without wheezes, rales or rhonchi. ABDOMEN: Positive bowel sounds x 4. Normal tympanic percussion. Soft, nontender, without masses or organomegaly. Hankins sign negative. MUSCULOSKELETAL: No muscle atrophy, erythema, or edema noted of the back. There is moderate tenderness over all of the lumbar spinous processes. There is moderate tenderness over the paraspinous muscles bilaterally. There is no tenderness over the thoracic spine or paraspinous muscles. There are no muscle spasms present. The patient is slow to move around with maximum tenderness with positional changes. positive straight leg raise test bilaterally. NEURO: Patient was alert and oriented to person place and time. Normal sensation to light and sharp touch. Deep tendon reflexes 2+ in the lower extremities. Dorsalis pedis pulse 2+ bilaterally. Strength 5/5 and equal in the bilateral lower extremities. EMERGENCY DEPARTMENT COURSE: The patient was seen and evaluated as above. I did review her previous medical records and imaging studies which were performed as recently as last week. There was a noted disc protrusion at L4-L5 , but no significant acute cause for the patient's pain. The patient did not reinjure the back, and states she is not having the same symptoms she had last week, her symptoms now are only of sharp pain in the low back and radiating to the right hip. There are no signs of infection or abscess, and the patient does not appear to be a meningeal in nature. As previously discussed, the patient spent a significant portion of her visit here on the cell phone. On my evaluation, the patient appeared to be sitting comfortably in the bed, but complained of 10/10 pain. I did offer the patient steroids to help with any inflammation. She is in agreement with this. The patient was given an IM injection of Decadron, and discharged home with a Medrol Dosepak. 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 I did encourage the patient to follow up with her PCP, as her pain is chronic, and her PCP will need to be managing it. Discharge instructions reviewed, and the patient was discharged home in good condition. I attest that I have personally reviewed the patient's current medication list. Patient was found to have normal blood pressure on screening and does not require follow-up. DIFFERENTIAL DIAGNOSIS: Lumbar strain, sprain, sciatica, disc protrusion, meningitis, abscess, cauda equina syndrome, malignancy, and others. DIAGNOSIS: Chronic low back pain Problem List Medical Problems: (1) Anxiety Status: Chronic (2) Asthma Status: Chronic (3) Bipolar II disorder Status: Chronic (4) Fibromyalgia Status: Chronic (5) H/O migraine Status: Chronic (6) H/O renal calculi Status: Chronic (7) H/O urinary tract infection Status: Chronic (8) History of low back pain Status: Chronic (9) Hypothyroidism Status: Chronic Surgical Problems: (1) S/P cholecystectomy Status: Resolved Social History Problems: (1) Anxiety State Nos Status: Chronic (2) Asthma, Unspecified Status: Chronic (3) Migraine Unspecified W/O Intractable Migraine Status: Chronic (4) Pancreatitis Status: Chronic Current/Historical Medications Scheduled Cyanocobalamin (Vitamin B-12), 1,000 MCG PO QAM Cyclobenzaprine Hcl (Flexeril), 10 MG PO HS Cyclobenzaprine Hcl (Flexeril), 5 MG PO QAM Dicyclomine HCl (Dicyclomine HCl), 20 MG PO BID Ferrous Sulfate (Ferrous Sulfate), 325 MG PO DAILY Fluticasone Propionate (Inhala (Flovent Diskus), 1 PUFF INH BID Gabapentin (Gabapentin), 600 MG PO TID Hydroxyzine Hcl (Atarax), 75 MG PO HS Lamotrigine (Lamictal), 200 MG PO DAILY Levothyroxine Sodium (Levothyroxine Sodium), 50 MCG PO QAM Loratadine (Claritin), 10 MG PO QAM Meloxicam (Mobic), 15 MG PO DAILY Methylprednisolone (Medrol Dosepak), 0 PO DAILY Norethin Acet & Estrad-Fe (Gildess Fe ), 1 TAB PO QAM Pantoprazole (Pantoprazole Sodium), 40 MG PO QAM Prazosin Hcl (Prazosin), 4 MG PO HS Topiramate (Topamax), 200 MG PO BID Venlafaxine Hcl (Effexor Extended Rel), 150 MG PO QAM Scheduled PRN Albuterol Sulfate (Proair Respiclick), 2-4 PUFFS INH Q4H PRN for Cough/ Shortness Of Breath Epinephrine (Epipen), 0.3 MG IM UD PRN for ALLERGIC REACTION Fluticasone Propionate (Fluticasone Propionate), 2 SPRAYS JERRY QAM PRN for Nasal Congestion Mupirocin 2% (Bactroban 2%), 1 APPLN TOP UD PRN for Skin Impairment Rizatriptan Benzoate (Rizatriptan Benzoate), 10 MG PO UD PRN for Migraine Allergies Coded Allergies: BEE STING (Verified Allergy, Severe, ANAPHYLAXIS, 03/25/17) Morphine (Verified Adverse Reaction, Intermediate, HALLUCINATIONS, ) Vital Signs Date Time Temp Pulse Resp B/P (MAP) Pulse Ox O2 Delivery O2 Flow Rate FiO2 03/25/17 22:15 78 18 140/77 98 Room Air 03/25/17 20:49 37.3 99 20 146/92 97 Room Air Medications Administered Medications (Trade) Dose Ordered Sig/Shelli Route Start Time Stop Time Status Last Admin Dose Admin Dexamethasone Sodium Phosphate (Dexamethasone Inj Pf) 10 mg NOW STAT IM 03/25/17 22:00 03/25/17 22:02 DC 03/25/17 22:10 10 MG Departure Information Impression Primary Impression: Chronic low back pain Dispostion Home / Self-Care Condition GOOD Prescriptions Methylprednisolone (MEDROL DOSEPAK) 4 Mg Syed 0 PO DAILY, #1 PKT Prov: Azeb Finley PA-C 03/25/17 Referrals Dennis Khan M.D. (PCP) Patient Instructions ED Neck Back Pain General, Low Back Pain Self Care, [facility] Additional Instructions You have been treated in the Emergency Department for Back Pain. You have been prescribed a Medrol Dosepak. This is a steroid which will help decrease your inflammation, redness, and itch. Take the medicine as prescribed. Take the ENTIRE 6 day course of the steroids. For pain control, you can use the following [id number] medicines (if >12 yo): Ibuprofen(Motrin, Advil) may be used for fever or pain. Use 600mg every six hours as needed. Take with food. Avoid using more than 2400mg in a 24 hour period. Do not use 2400mg per day for more than three consecutive days without physician direction. Prolonged inappropriate use can lead to stomach upset or ulcers. Do not take this medication while taking meloxicam. (AND/OR) Acetaminophen(Tylenol) may be used for fever or pain. Use 1000mg every six hours as needed. Avoid using more than 3000mg in a 24 hour period. You may take this medication while currently taking meloxicam. If this is an acute injury, ice can be applied to the area of pain for the first 3 days to help decrease pain and inflammation. After the first 3 days, a heating pad can be used over the area for continued soothing relief. You should schedule a follow-up appointment in 2-3 days with your Primary Care Provider for further evaluation and treatment of your back pain. Return to the Emergency Department if your current symptoms worsen despite treatment course outlined above, or if you develop any of the following symptoms : intractable pain despite aforementioned treatment course, loss of control of your bowel or bladder, numbness or tingling in your groin, or development of a fever. Problem Qualifiers Primary Impression: Chronic low back pain Back pain laterality: bilateral Sciatica presence: without sciatica Qualified Codes: M54.5 - Low back pain; G89.29 - Other chronic pain
[2017-03-25] MEDS ORDERED: EPP3/2 IM (21:52)
[2017-03-25] MEDS ORDERED: DEXAMETHASONE **PF** INJ 10 MG/ML VIAL IM STA (22:00)
[2017-03-25] MEDS ORDERED: METH4PAK PO (22:02)
[2017-03-25 22:15] VITALS: BP 140/77; PULSE 78; O2SAT 98
== END 2017-03-25 22:16 | disposition home or self-care (01) ==
LOC: C.EDB 20:47 → C.EDD 22:16
DX: M54.5 Low back pain (principal); G89.29 Other chronic pain; E03.9 Hypothyroidism, unspecified; K21.9 Gastro-esophageal reflux disease without esophagitis; F41.9 Anxiety disorder, unspecified; F31.81 Bipolar II disorder; K86.1 Other chronic pancreatitis; J45.909 Unspecified asthma, uncomplicated; Z87.440 Personal history of urinary (tract) infections; Z87.442 Personal history of urinary calculi; Z79.899 Other long term (current) drug therapy; Z88.5 Allergy status to narcotic agent; Z91.030 Bee allergy status

== ENCOUNTER 2017-03-27 22:08 | Emergency (ER) | payer OTHER ==
[~2017-03-27] VITALS: Ht 162.6 cm; Wt 97.7 kg
[~2017-03-27 22:08] MED LIST changes: +EPP3/2 IM; +METH4PAK PO
[2017-03-27] MEDS ORDERED: ACETAMINOPHEN 500 MG TAB PO STA (22:16)
[2017-03-27 22:17] VITALS: TEMP 36.6; Ht 162.6 cm; Wt 97.7 kg
--- NOTE | 2017-03-27 22:57 | DIAGNOSTIC IMAGING REPORT ---
HEAD WITHOUT CONTRAST (CT) CLINICAL HISTORY: 42 years-old Female with Fall. Right side head injury. . Acute right-sided head trauma status post fall TECHNIQUE: Multiple axial CT images of the head were obtained without contrast. A dose lowering technique was utilized adhering to the principles of ALARA. CT DOSE: 700.35 mGycm COMPARISON: CT head 05/24/2016. FINDINGS: No acute intracranial hemorrhage, midline shift, intracranial mass, hydrocephalus, territorial ischemia or abnormal extra-axial collection. The calvarium is intact. The paranasal sinuses, mastoid air cells, and middle ear cavities are clear. IMPRESSION: No acute intracranial abnormality. No calvarial fracture. The above report was generated using voice recognition software. It may contain grammatical, syntax or spelling errors. Electronically signed by: Zachary Rose M.D. 03/27/2017 10:55 PM Dictated Date/Time: 03/27/2017 10:53 PM
[2017-03-27 23:12] VITALS: BP 146/86; PULSE 75; O2SAT 100
--- NOTE | 2017-03-27 23:17 | EMERGENCY ROOM VISIT NOTE ---
ED Visit Note First contact with patient: 22:10 Staff note: I have reviewed the Patients chart and have discussed this case with my PA. I generally agree with the ED note and findings.
--- NOTE | 2017-03-27 23:54 | EMERGENCY ROOM VISIT NOTE ---
History First contact with patient: 22:10 Chief Complaint: FALL Stated Complaint: HEADACHE, DIZZY History of Present Illness The patient is a 42 year old female who presents to the Emergency Room with complaints of right-sided head injury after falling at home roughly 10 hours prior to arrival. The patient states that she was in a bathroom, when she fell , and shook her head. She does not believe that she lost consciousness. She states that she has had intermittent dizziness for the past several days. The patient has been seen multiple times in the ER recently for back pain. She states that her pain continues. She rates her overall discomfort a 10/10. She does arrive via ambulance and has not taken anything [id number] for her symptoms. Review of Systems More than 10 systems were reviewed and otherwise negative with the exception of history of present illness. Past Medical/Surgical History Medical Problems: (1) Acute bilateral low back pain (2) Anxiety (3) Asthma (4) Bipolar II disorder (5) E. coli septicemia (6) Fibromyalgia (7) Gram negative septicemia (8) H/O migraine (9) H/O renal calculi (10) H/O urinary tract infection (11) History of low back pain (12) Hypothyroidism Surgical Problems: (1) S/P cholecystectomy Social History Problems: (1) Anxiety State Nos (2) Asthma, Unspecified (3) Migraine Unspecified W/O Intractable Migraine (4) Pancreatitis Family History Diabetes mellitus FH: cancer FH: heart disease FH: lung disease FHx: gallbladder disease Kidney disease or stones Social History Smoking Status: Never Smoker Alcohol Use: none Drug Use: none Marital Status: single Housing Status: lives with family Occupation Status: disabled Current/Historical Medications Scheduled Cyanocobalamin (Vitamin B-12), 1,000 MCG PO QAM Cyclobenzaprine Hcl (Flexeril), 10 MG PO HS Cyclobenzaprine Hcl (Flexeril), 5 MG PO QAM Dicyclomine HCl (Dicyclomine HCl), 20 MG PO BID Ferrous Sulfate (Ferrous Sulfate), 325 MG PO DAILY Fluticasone Propionate (Inhala (Flovent Diskus), 1 PUFF INH BID Gabapentin (Gabapentin), 600 MG PO TID Hydroxyzine Hcl (Atarax), 75 MG PO HS Lamotrigine (Lamictal), 200 MG PO DAILY Levothyroxine Sodium (Levothyroxine Sodium), 50 MCG PO QAM Loratadine (Claritin), 10 MG PO QAM Meloxicam (Mobic), 15 MG PO DAILY Methylprednisolone (Medrol Dosepak), 0 PO DAILY Norethin Acet & Estrad-Fe (Gildess Fe 1.09/11), 1 TAB PO QAM Pantoprazole (Pantoprazole Sodium), 40 MG PO QAM Prazosin Hcl (Prazosin), 4 MG PO HS Topiramate (Topamax), 200 MG PO BID Venlafaxine Hcl (Effexor Extended Rel), 150 MG PO QAM Scheduled PRN Albuterol Sulfate (Proair Respiclick), 2-4 PUFFS INH Q4H PRN for Cough/ Shortness Of Breath Epinephrine (Epipen), 0.3 MG IM UD PRN for ALLERGIC REACTION Fluticasone Propionate (Fluticasone Propionate), 2 SPRAYS JERRY QAM PRN for Nasal Congestion Mupirocin 2% (Bactroban 2%), 1 APPLN TOP UD PRN for Skin Impairment Rizatriptan Benzoate (Rizatriptan Benzoate), 10 MG PO UD PRN for Migraine Physical Exam Vital Signs Date Time Temp Pulse Resp B/P (MAP) Pulse Ox O2 Delivery O2 Flow Rate FiO2 03/27/17 23:12 75 17 146/86 100 Room Air 03/27/17 22:41 84 17 162/97 98 Room Air 03/27/17 22:17 36.6 80 17 182/93 97 Room Air Physical Exam VITALS: Vitals are noted on the nurse's note and reviewed by myself. Vital signs with elevated blood pressure that did improve. GENERAL: Well-developed, well-nourished, white female, who is in no acute distress and resting comfortably. Patient is cooperative with the examination. GCS 15 HEAD: Normocephalic atraumatic. EARS: External ear normal. External auditory canals clear, tympanic membranes pearly maddox without erythema or effusion bilaterally. EYES: Pupils equal round and reactive to light and accommodation. Conjunctivae without injection, sclerae without icterus. Extraocular movements intact. NOSE: Patent, turbinates without inflammation or discharge. MOUTH: Mucous membranes moist. Tonsils are not enlarged. Pharynx without erythema, blood, or exudate. Uvula midline. Airway patent. NECK: Supple without nuchal rigidity. No lymphadenopathy. No thyromegaly. Cervical spine is nontender. HEART: Regular rate and rhythm without murmurs gallops or rubs. LUNGS: Clear to auscultation bilaterally without wheezes, rales or rhonchi. No retractions or accessory muscle use. ABDOMEN: Positive normal bowel sounds x 4. Soft, nontender, without masses or organomegaly. No guarding or rebound tenderness. MUSCULOSKELETAL: No muscle atrophy, erythema, or edema noted. Full range of motion without joint tenderness in all extremities. No lumbar spine tenderness. No saddle paresthesias. Negative straight leg raise bilateral. Medical Decision & Procedures ER Provider Diagnostic Interpretation: HEAD WITHOUT CONTRAST (CT) CLINICAL HISTORY: 42 years-old Female with Fall. Right side head injury. . Acute right-sided head trauma status post fall TECHNIQUE: Multiple axial CT images of the head were obtained without contrast. A dose lowering technique was utilized adhering to the principles of ALARA. CT DOSE: 700.35 mGycm COMPARISON: CT head 05/24/2016. FINDINGS: No acute intracranial hemorrhage, midline shift, intracranial mass, hydrocephalus, territorial ischemia or abnormal extra-axial collection. The calvarium is intact. The paranasal sinuses, mastoid air cells, and middle ear cavities are clear. IMPRESSION: No acute intracranial abnormality. No calvarial fracture. Medications Administered Medications (Trade) Dose Ordered Sig/Shelli Route Start Time Stop Time Status Last Admin Dose Admin Acetaminophen (Tylenol Tab) 1,000 mg NOW STAT PO 03/27/17 22:16 03/27/17 22:17 DC 03/27/17 22:40 1,000 MG ED Course Physical exam and history were performed. Nursing notes, EMR, and Medication List were personally reviewed. Patient appears to have fallen and suffered injury to her head roughly 10 hours ago. She has been seen recently for back pain, and was admitted several days. She does complain of continued back pain, however this has been evaluated with MRI and specialty evaluation. She was given oral Tylenol here for comfort. I suspect her back pain is more of a chronic problem and is not acutely exacerbated by her fall. Of note she does not have distinct back pain on exam or neurologic deficit. I elected to perform an EKG which was normal sinus rhythm at 81 bpm without ischemia or ectopy. CT scan of her head was performed and does not show evidence of acute fracture or intracranial bleed. The case was discussed with my attending physician, and also independently evaluated the patient. Overall the patient appears well for discharge home. She did not have any worsening of her symptoms while here in the department. Her symptoms are likely related to her head injury and should improve over time. The patient is to follow with her primary care physician with any ongoing or persistent symptoms. The chart was completed utilizing [employer] Voice Recognition Software. Grammatical errors, random word insertions, pronoun errors, and incomplete sentences are an occasional consequence of this system due to software limitations, ambient noise, and hardware issues. Any formal questions or concerns about the content, text, or information contained within the body of this dictation should be directly addressed to the provider for clarification. . Medical Decision Differential diagnosis: Etiologies such as concussion, contusion, fracture, subdural hematoma, epidural hematoma, intraparenchymal hemorrhage, as well as other traumatic pathologies were entertained. Blood Pressure Screening Blood pressure disposition: Elevated BP felt to be situational, Referred to PCP Impression Primary Impression: Fall Additional Impression: Head injury Departure Information Dispostion Home / Self-Care Condition GOOD Forms HOME CARE DOCUMENTATION FORM, IMPORTANT VISIT INFORMATION Patient Instructions My [facility] Additional Instructions You were seen and evaluated today on an emergency basis only. This is not a substitute for, or an effort to provide, complete comprehensive medical care. It is not possible to recognize and treat all injuries or illnesses in a single emergency department visit. For this reason it is recommended that you followup with your primary care physician this week for ongoing care and evaluation. For baseline pain relief you may alternate ibuprofen and acetaminophen every 4 hours for pain control. Take 600 mg ibuprofen (Advil) and then 4 hours later take 1000 mg acetaminophen (Tylenol). Do not take more than 3000 mg acetaminophen in a single day. You are welcome to return to the emergency department anytime with new, worsening, or concerning symptoms. Problem Qualifiers
== END 2017-03-27 23:15 | disposition home or self-care (01) ==
LOC: EDBD 22:08 → C.EDC 22:09
DX: S09.90XA Unspecified injury of head, initial encounter (principal); W19.XXXA Unspecified fall, initial encounter; F41.9 Anxiety disorder, unspecified; J45.909 Unspecified asthma, uncomplicated; F31.81 Bipolar II disorder; M79.7 Fibromyalgia; E03.9 Hypothyroidism, unspecified; G43.909 Migraine, unspecified, not intractable, without status migrainosus; Z79.51 Long term (current) use of inhaled steroids; Z79.1 Long term (current) use of non-steroidal anti-inflammatories (NSAID)

== ENCOUNTER 2017-04-20 15:22 | Emergency (ER) | payer OTHER ==
[~2017-04-20] VITALS: Ht 162.6 cm; Wt 95.9 kg
[~2017-04-20 15:22] MED LIST changes: -METH4PAK PO
[2017-04-20 15:34] VITALS: TEMP 37; O2SAT 96; Ht 162.6 cm; Wt 95.9 kg
[2017-04-20] MEDS ORDERED: KETOROLAC TROMETHAMINE 30 MG/ML VIAL IV STA (15:45)
[2017-04-20] MEDS ORDERED: DOCU100C31 PO (15:45)
[2017-04-20] MEDS ORDERED: ONDANSETRON INJ 2 MG/ML 2 ML VIAL IV STA (15:45)
[2017-04-20] MEDS ORDERED: ACETAMINOPHEN 500 MG TAB PO STA (15:45)
--- NOTE | 2017-04-20 15:47 | EMERGENCY ROOM VISIT NOTE ---
History Report prepared by Antonieta: Ernestina Rose Under the Supervision of: Dr. Gaston Rodriguez M.D. 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 Positive abdominal pain, chest pain radiating to right arm. Negative shortness of breath, leg pain or leg swelling. The patient states that she has been having chest pains since this morning and it has begun to radiate in her right arm. She notes that walking worsens the pain. She currently rates her pain a 9/10 in severity. She states that she is disabled due to chronic back pain and DDD. She denies taking any pain medication. She denies any history of tobacco or alcohol use. She notes that she regularly takes Neurontin. She notes a history of bone spur in her right arm. She notes that she is right hand dominant. 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 She denies any leg pain or leg swelling. Review of Systems See HPI for pertinent positives and negatives. A total of ten systems were reviewed and were otherwise negative. Past Medical & Surgical Medical Problems: (1) Acute bilateral low back pain (2) Anxiety (3) Asthma (4) Bipolar II disorder (5) E. coli septicemia (6) Fibromyalgia (7) Gram negative septicemia (8) H/O migraine (9) H/O renal calculi (10) H/O urinary tract infection (11) History of low back pain (12) Hypothyroidism Surgical Problems: (1) S/P cholecystectomy Social History Problems: (1) Anxiety State Nos (2) Asthma, Unspecified (3) Migraine Unspecified W/O Intractable Migraine (4) Pancreatitis Family History Diabetes mellitus FH: cancer FH: heart disease FH: lung disease FHx: gallbladder disease Kidney disease or stones Social History Smoking Status: Never Smoker Alcohol Use: none Drug Use: none Marital Status: single Housing Status: lives with family Occupation Status: disabled Current/Historical Medications Scheduled Cyanocobalamin (Vitamin B-12), 1,000 MCG PO QAM Cyclobenzaprine Hcl (Flexeril), 10 MG PO HS Cyclobenzaprine Hcl (Flexeril), 5 MG PO QAM Dicyclomine HCl (Dicyclomine HCl), 20 MG PO BID Docusate Sodium (Docusate Sodium), 100 MG PO QAM Ferrous Sulfate (Ferrous Sulfate), 325 MG PO DAILY Fluticasone Propionate (Inhala (Flovent Diskus), 1 PUFF INH BID Gabapentin (Gabapentin), 600 MG PO TID Hydroxyzine Hcl (Atarax), 75 MG PO HS Lamotrigine (Lamictal), 200 MG PO DAILY Levothyroxine Sodium (Levothyroxine Sodium), 50 MCG PO QAM Loratadine (Claritin), 10 MG PO QAM Meloxicam (Mobic), 15 MG PO DAILY Norethin Acet & Estrad-Fe (Gildess Fe ), 1 TAB PO QAM Pantoprazole (Pantoprazole Sodium), 40 MG PO QAM Prazosin Hcl (Prazosin), 4 MG PO HS Topiramate (Topamax), 200 MG PO BID Venlafaxine Hcl (Effexor Extended Rel), 150 MG PO QAM Scheduled PRN Albuterol Sulfate (Proair Respiclick), 2-4 PUFFS INH Q4H PRN for Cough/ Shortness Of Breath Epinephrine (Epipen), 0.3 MG IM UD PRN for ALLERGIC REACTION Fluticasone Propionate (Fluticasone Propionate), 2 SPRAYS JERRY QAM PRN for Nasal Congestion Mupirocin 2% (Bactroban 2%), 1 APPLN TOP UD PRN for Skin Impairment Rizatriptan Benzoate (Rizatriptan Benzoate), 10 MG PO UD PRN for Migraine Allergies Coded Allergies: BEE STING (Verified Allergy, Severe, ANAPHYLAXIS, 04/20/17) Morphine (Verified Adverse Reaction, Intermediate, HALLUCINATIONS, 04/20/17) Physical Exam Vital Signs Date Time Temp Pulse Resp B/P (MAP) Pulse Ox O2 Delivery O2 Flow Rate FiO2 04/20/17 17:17 103 16 144/98 94 04/20/17 15:45 104 04/20/17 15:38 95 Room Air 04/20/17 15:34 96 Room Air 04/20/17 15:34 37.0 101 18 171/119 95 Room Air Physical Exam GENERAL: Awake, alert, well-appearing, NAD. Obese HENT: Normocephalic, atraumatic. EYES: Normal conjunctiva. Sclera non-icteric. NECK: Supple. No nuchal rigidity. FROM. RESPIRATORY: CTAB, no rhonchi, wheezing, crackles CARDIAC: tachycardic and regular, no MRG ABDOMEN: Soft, NTND, BS+ MSK: no LE edema. Mild reproducible right shoulder pain and right chest wall pain. NEURO: GCS 15, CN 2-12 intact, moves all 4s on command SKIN: No rash or jaundice noted. Medical Decision & Procedures ER Provider Diagnostic Interpretation: Radiology results as stated below per my review and radiologist interpretation: CHEST ONE VIEW PORTABLE CLINICAL HISTORY: Atypical chest pain COMPARISON STUDY: 02/17/2017 FINDINGS: The heart is at the upper limits of normal in size. There is no failure. There is no focal pulmonary consolidation. There are no pleural effusions. There is no pneumothorax.[ IMPRESSION: No active disease in the chest. Electronically signed by: Gray Schultz M.D. 04/20/2017 4:10 PM Dictated Date/Time: 04/20/2017 4:10 PM Laboratory Results 04/20/17 15:58 Red Blood Count 4.51, Mean Corpuscular Volume 89.1, Mean Corpuscular Hemoglobin 30.4, Mean Corpuscular Hemoglobin Concent 34.1, Mean Platelet Volume 8.6, Neutrophils (%) (Auto) 56.8, Lymphocytes (%) (Auto) 32.1, Monocytes (%) (Auto) 8.1, Eosinophils (%) (Auto) 1.8, Basophils (%) (Auto) 0.6, Neutrophils # (Auto) 4.48, Lymphocytes # (Auto) 2.53, Monocytes # (Auto) 0.64, Eosinophils # (Auto) 0.14, Basophils # (Auto) 0.05 04/20/17 15:58 Test 04/20/17 15:58 White Blood Count 7.89 K/uL (4.8-10.8) Red Blood Count 4.51 M/uL (4.2-5.4) Hemoglobin 13.7 g/dL (12.0-16.0) Hematocrit 40.2 % (37-47) Mean Corpuscular Volume 89.1 fL (80-100) Mean Corpuscular Hemoglobin 30.4 pg (25-34) Mean Corpuscular Hemoglobin Concent 34.1 g/dl (32-36) Platelet Count 296 K/uL (130-400) Mean Platelet Volume 8.6 fL (7.4-10.4) Neutrophils (%) (Auto) 56.8 % Lymphocytes (%) (Auto) 32.1 % Monocytes (%) (Auto) 8.1 % Eosinophils (%) (Auto) 1.8 % Basophils (%) (Auto) 0.6 % Neutrophils # (Auto) 4.48 K/uL (1.4-6.5) Lymphocytes # (Auto) 2.53 K/uL (1.2-3.4) Monocytes # (Auto) 0.64 K/uL (0.11-0.59) Eosinophils # (Auto) 0.14 K/uL (0-0.5) Basophils # (Auto) 0.05 K/uL (0-0.2) RDW Standard Deviation 41.6 fL (36.4-46.3) RDW Coefficient of Variation 12.8 % (11.5-14.5) Immature Granulocyte % (Auto) 0.6 % Immature Granulocyte # (Auto) 0.05 K/uL (0.00-0.02) Prothrombin Time 10.7 SECONDS (9.0-12.0) Prothromb Time International Ratio 1.0 (0.9-1.1) Activated Partial Thromboplast Time 24.0 SECONDS (21.0-31.0) Partial Thromboplastin Ratio 0.9 Anion Gap 6.0 mmol/L (3-11) Est Creatinine Clear Calc Drug Dose 89.7 ml/min Estimated GFR () 90.1 Estimated GFR (Non- 77.8 BUN/Creatinine Ratio 24.8 (10-20) Calcium Level 8.6 mg/dl (8.5-10.1) Total Bilirubin 0.4 mg/dl (0.2-1) Direct Bilirubin < 0.1 mg/dl (0-0.2) Aspartate Amino Transf (AST/SGOT) 12 U/L (15-37) Alanine Aminotransferase (ALT/SGPT) 26 U/L (12-78) Alkaline Phosphatase 46 U/L (45-117) Troponin I < 0.015 ng/ml (0-0.045) Pro-B-Type Natriuretic Peptide 36 pg/ml (0-450) Total Protein 7.9 gm/dl (6.4-8.2) Albumin 3.5 gm/dl (3.4-5.0) Lipase 129 U/L (73-393) Laboratory results reviewed by me Medications Administered Medications (Trade) Dose Ordered Sig/Shelli Route Start Time Stop Time Status Last Admin Dose Admin Ondansetron HCl (Zofran Inj) 4 mg NOW STAT IV 04/20/17 15:45 04/20/17 15:47 DC 04/20/17 16:20 4 MG Acetaminophen (Tylenol Tab) 1,000 mg NOW STAT PO 04/20/17 15:45 04/20/17 15:47 DC 04/20/17 16:20 1,000 MG Ketorolac Tromethamine (Toradol Inj) 30 mg NOW STAT IV 04/20/17 15:45 04/20/17 15:47 DC 04/20/17 16:19 30 MG ECG Indication: chest pain Rate (beats per minute): 87 Rhythm: normal sinus Findings: nonspecific-ST abn, left axis deviation, other (Normal intervals. ) ED Course 1531: The patient was evaluated in room B11B. A complete history and physical exam was performed. 1703: I reassessed the patient at this time. She is feeling better and resting comfortably. I discussed the results and treatment plan with the patient. I answered all pertaining questions that she had. She expressed understanding and verbalized agreement. The patient will be discharged home. 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 Prior records/ancillary studies reviewed. Triage Nursing notes reviewed. The patient's history was concerning for chest pain. Differential diagnosis: Etiologies such as cardiac ischemia, aortic dissection, pulmonary embolism, pneumonia, pneumothorax, musculoskeletal, infections, pericarditis, myocarditis , esophageal rupture, gastrointestinal, as well as others were entertained. Patient was seen and evaluated at the bedside. Patient states that she has had some right-sided chest pain does go to her right arm. Patient describes as sharp in nature. Patient did have blood work that was completed, EKG, troponin , chest x-ray. Patient did have noted tachycardia upon my initial exam and noted by nursing however upon reassessment of the patient the patient did not have any noted tachycardia. Otherwise patient would have a PERC of 1 given the patient's tachycardia patient's EKG does not show any signs of right heart strain the patient has negative troponin and BNP. Patient would be a Wells of 1.5, low risk PE, so less likely PE. Patient's EKG nonischemic with a negative troponin patient does not have any prior history of heart disease, patient has a heart score less than 4 less likely ACS. Patient does have some mild reproducible pain which improved after treatment. I believe this may be related to muscle skeletal as well as chronic right shoulder pain. Patient states that she did have a prior right shoulder surgery. Patient was deemed suitable for outpatient follow-up and treatment.Patient was given strict follow- up, discharge, and return precautions. All questions were answered. Patient was deemed suitable for outpatient follow-up at this time. Patient agreed with the plan of care and was safely discharged home. Medication Reconcilliation Current Medication List: was personally reviewed by me Blood Pressure Screening Patient's blood pressure: Elevated blood pressure Blood pressure disposition: Referred to PCP Impression Primary Impression: Chest wall pain Additional Impression: Shoulder pain Scribe Attestation The scribe's documentation has been prepared under my direction and personally reviewed by me in its entirety. I confirm that the note above accurately reflects all work, treatment, procedures, and medical decision making performed by me. Departure Information Dispostion Home / Self-Care Referrals Dennis Khan M.D. (PCP) Forms Call Back Authorization, HOME CARE DOCUMENTATION FORM, IMPORTANT VISIT INFORMATION Patient Instructions Chest Pain - [facility], My [facility] Additional Instructions Please return to the emergency department if you have worsening or recurrent symptoms not amenable to at-home treatment. Please call for a follow-up appointment with her primary care physician. Please take your medications as prescribed. If you have other concerns and/or complaints please feel free to also call your primary care physician's office or return the ED for further evaluation, management, and treatment. You may take 600 mg Ibuprofen every 6 hours as needed for pain with food for no more than 2 consecutive days. You may take tylenol 1000 mg every 6 hours as needed for pain. You may take motrin and tylenol separately or at the same time. Take your medications as prescribed. You have been examined and treated today on an emergency basis only. This is not a substitute for, or an effort to provide, complete comprehensive medical care. It is impossible to recognize and treat all injuries or illnesses in a single emergency department visit. It is therefore important that you follow up closely with [facility], your PCP, and/or your specialist(s). Call as soon as possible for an appointment. Thank you for your time and consideration. I look forward to speaking with you again soon. Please don't hesitate to call us if you have any questions. Problem Qualifiers Additional Impression: Shoulder pain Chronicity: chronic Laterality: right Qualified Codes: M25.511 - Pain in right shoulder; G89.29 - Other chronic pain
--- NOTE | 2017-04-20 16:12 | DIAGNOSTIC IMAGING REPORT ---
CHEST ONE VIEW PORTABLE CLINICAL HISTORY: Atypical chest pain COMPARISON STUDY: 02/17/2017 FINDINGS: The heart is at the upper limits of normal in size. There is no failure. There is no focal pulmonary consolidation. There are no pleural effusions. There is no pneumothorax.[ IMPRESSION: No active disease in the chest. Electronically signed by: Gray Schultz M.D. 04/20/2017 4:10 PM Dictated Date/Time: 04/20/2017 4:10 PM
[2017-04-20 16:14] LABS: BASO % 0.6 %; BASO ABS # 0.05 K/uL (0-0.2); EOS % 1.8 %; EOS ABS # 0.14 K/uL (0-0.5); HEMATOCRIT 40.2 % (37-47); HEMOGLOBIN 13.7 g/dL (12.0-16.0); IG# 0.05 K/uL (0.00-0.02); LYMPH % 32.1 %; LYMPH ABS # 2.53 K/uL (1.2-3.4); MEAN CELL VOLUME 89.1 fL (80-100); MEAN CORPUSCULAR HEMOGLOBIN 30.4 pg (25-34); MEAN CORPUSCULAR HGB CONC 34.1 g/dl (32-36); MEAN PLATELET VOLUME 8.6 fL (7.4-10.4); MONO % 8.1 %; MONO ABS # 0.64 K/uL (0.11-0.59); NEUT % 56.8 %; NEUT ABS # 4.48 K/uL (1.4-6.5); PLATELET COUNT 296 K/uL (130-400); RED CELL DISTRIBUTION WIDTH CV 12.8 % (11.5-14.5); RED CELL DISTRIBUTION WIDTH SD 41.6 fL (36.4-46.3); WHITE BLOOD COUNT 7.89 K/uL (4.8-10.8)
[2017-04-20 16:45] LABS: ALBUMIN 3.5 gm/dl (3.4-5.0); ALT/SGPT 26 U/L (12-78); AST/SGOT 12 U/L (15-37); BLOOD UREA NITROGEN 22 mg/dl (7-18); CALCIUM 8.6 mg/dl (8.5-10.1); CARBON DIOXIDE 24 mmol/L (21-32); GLUCOSE 80 mg/dl (70-99); LIPASE 129 U/L (73-393); POTASSIUM 3.7 mmol/L (3.5-5.1); SODIUM 139 mmol/L (136-145)
[2017-04-20 16:50] LABS: ALKALINE PHOSPHATASE 46 U/L (45-117); TOTAL PROTEIN 7.9 gm/dl (6.4-8.2)
[2017-04-20 17:17] VITALS: BP 144/98; PULSE 103; O2SAT 94
== END 2017-04-20 17:17 | disposition home or self-care (01) ==
LOC: EDBD 15:22 → C.EDB 15:27
DX: R07.89 Other chest pain (principal); M25.519 Pain in unspecified shoulder; F31.81 Bipolar II disorder; F41.9 Anxiety disorder, unspecified; E03.9 Hypothyroidism, unspecified; J45.909 Unspecified asthma, uncomplicated; Z87.440 Personal history of urinary (tract) infections; Z87.442 Personal history of urinary calculi; Z79.899 Other long term (current) drug therapy; Z88.5 Allergy status to narcotic agent; Z91.030 Bee allergy status; Z83.3 Family history of diabetes mellitus; Z80.9 Family history of malignant neoplasm, unspecified; Z82.49 Family history of ischemic heart disease and other diseases of the circulatory system; Z83.79 Family history of other diseases of the digestive system; Z84.1 Family history of disorders of kidney and ureter

== ENCOUNTER 2017-05-05 15:21 | Emergency (ER) | payer OTHER ==
[~2017-05-05] VITALS: Ht 152.4 cm; Wt 96.1 kg
[~2017-05-05 15:21] MED LIST changes: +DOCU100C31 PO
[2017-05-05 15:25] VITALS: TEMP 36.9; Ht 152.4 cm; Wt 96.1 kg
[2017-05-05] MEDS ORDERED: KETOROLAC TROMETHAMINE 30 MG/ML VIAL IV STA (15:34)
[2017-05-05] MEDS ORDERED: SODIUM CHLORIDE 0.9% 1000ML 1,000 ML IV STA (15:34)
--- NOTE | 2017-05-05 15:37 | EMERGENCY ROOM VISIT NOTE ---
History Report prepared by Antonieta: Curt Milton Under the Supervision of: Dr. Anders Vizcarra M.D. First contact with patient: 15:24 Chief Complaint: ABDOMINAL PAIN Stated Complaint: abd pain History of Present Illness The patient is a 42 year old female who presents to the Emergency Room with complaints of constant right sided abdominal pain starting around 1230 this afternoon. She currently rates her discomfort as an 8/10 in severity. She additionally reports that she fell and hit her head against her washing machine. She is unsure if she lost consciousness, and she now has a headache. The patient additionally states that she has some burning with urination. She states that she does not have any hematuria, vaginal bleeding or discharge, and she denies any chance of , and her last period was 3 weeks ago. The patient has a history of a cholecystectomy, kidney stones, and pancreatitis. She notes that she still has her appendix. Source of History: patient Onset: 1230 Position: abdomen (right) Symptom Intensity: 8/10 Timing: constant Associated Symptoms: + headache, + urinary symptoms Review of Systems See HPI for pertinent positives & negatives. A total of 10 systems reviewed and were otherwise negative. Past Medical & Surgical Medical Problems: (1) Acute bilateral low back pain (2) Anxiety (3) Asthma (4) Bipolar II disorder (5) E. coli septicemia (6) Fibromyalgia (7) Gram negative septicemia (8) H/O migraine (9) H/O renal calculi (10) H/O urinary tract infection (11) History of low back pain (12) Hypothyroidism Surgical Problems: (1) S/P cholecystectomy Social History Problems: (1) Anxiety State Nos (2) Asthma, Unspecified (3) Migraine Unspecified W/O Intractable Migraine (4) Pancreatitis Old medical records were reviewed. Nurse's notes were reviewed and I agree with. Family History Diabetes mellitus FH: cancer FH: heart disease FH: lung disease FHx: gallbladder disease Kidney disease or stones Social History Smoking Status: Never Smoker Alcohol Use: none Drug Use: none Marital Status: single Housing Status: lives with family Occupation Status: disabled Current/Historical Medications Scheduled Cyanocobalamin (Vitamin B-12), 1,000 MCG PO QAM Cyclobenzaprine Hcl (Flexeril), 10 MG PO HS Cyclobenzaprine Hcl (Flexeril), 5 MG PO QAM Dicyclomine HCl (Dicyclomine HCl), 20 MG PO BID Docusate Sodium (Docusate Sodium), 100 MG PO QAM Ferrous Sulfate (Ferrous Sulfate), 325 MG PO QDB Fluticasone Propionate (Inhala (Flovent Diskus), 1 PUFF INH BID Gabapentin (Gabapentin), 600 MG PO TID Lamotrigine (Lamictal), 200 MG PO DAILY Levothyroxine Sodium (Levothyroxine Sodium), 50 MCG PO QAM Loratadine (Claritin), 10 MG PO QAM Meloxicam (Mobic), 15 MG PO DAILY Norethin Acet & Estrad-Fe (Gildess Fe ), 1 TAB PO QAM Pantoprazole (Pantoprazole Sodium), 40 MG PO QAM Prazosin Hcl (Prazosin), 4 MG PO HS Topiramate (Topamax), 200 MG PO BID Venlafaxine Hcl (Effexor Extended Rel), 150 MG PO QAM Scheduled PRN Albuterol Sulfate (Proair Respiclick), 2-4 PUFFS INH Q4H PRN for Cough/ Shortness Of Breath Epinephrine (Epipen), 0.3 MG IM UD PRN for ALLERGIC REACTION Fluticasone Propionate (Fluticasone Propionate), 2 SPRAYS JERRY QAM PRN for Nasal Congestion Hydroxyzine Hcl (Atarax), 75 MG PO TID PRN for Itching Mupirocin 2% (Bactroban 2%), 1 APPLN TOP UD PRN for Skin Impairment Rizatriptan Benzoate (Rizatriptan Benzoate), 10 MG PO UD PRN for Migraine Allergies Coded Allergies: BEE STING (Verified Allergy, Severe, ANAPHYLAXIS, 05/05/17) Morphine (Verified Adverse Reaction, Intermediate, HALLUCINATIONS, 05/05/17 ) Physical Exam Vital Signs Date Time Temp Pulse Resp B/P (MAP) Pulse Ox O2 Delivery O2 Flow Rate FiO2 05/05/17 17:30 80 142/111 98 05/05/17 16:40 92 16 154/96 97 Room Air 05/05/17 15:25 36.9 96 16 156/102 95 Room Air Physical Exam General: Non-ill appearing young female in no acute distress. HEENT: Normal cephalic no external signs of trauma. Pupils are equal round and reactive to light. Extraocular movements are intact. Oropharynx is pink with moist mucous membranes. No swelling of the mouth lips or tongue. Neck: Supple with a midline trachea. No meningeal signs or stiffness, no JVD or bruits. No Stridor. Chest: Clear to auscultation bilaterally. No wheezes or rhonchi. No increased work of breathing. Heart: regular rate and rhythm. Abdomen: Mild tenderness to palpation in the right lower quadrant. Soft, nondistended without rebound guarding or rigidity. Extremities: No cyanosis clubbing or edema. No calf tenderness or assymetry Spine/Back. Non tender to palpation. No CVA tenderness Skin: Good turgor without rashes. Neurologic exam: Cranial nerves two through 12 are intact. Motor and sensation are intact and symmetrical throughout. GCS 15 Medical Decision & Procedures ER Provider Diagnostic Interpretation: Radiology results as stated below per my review and radiologist interpretation: ABDOMEN AND PELVIS CT WITH IV CONTRAST CT DOSE: 1046.35 mGy.cm HISTORY: Acute right lower quadrant abdominal pain with concern for acute appendicitis eval for appy TECHNIQUE: Multiaxial CT images of the abdomen and pelvis were performed following the use of intravenous contrast. A dose lowering technique was utilized adhering to the principles of ALARA. COMPARISON STUDY: CT abdomen and pelvis 01/08/2017. FINDINGS: Lung bases are clear. There is no pneumatosis or pneumoperitoneum identified. The imaged inferior cardiac chambers are unremarkable. Prior cholecystectomy. The liver, spleen, pancreas and left adrenal gland are within normal limits. There is mild nodularity of the left adrenal gland medial limb which is unchanged measuring 7 x 8 mm which is indeterminate, however statistically benign. Cortical lobulation of the kidneys bilaterally noted. 1.7 x 1.4 center low attenuating lesion of the posterior interpolar right kidney is unchanged suggesting renal cyst. Previously noted adjacent 3 mm calculus is no longer present. No renal calculi or obstructive uropathy. Ureters and urinary bladder are within normal limits. Uterus appears mildly heterogeneous without focal mass definitively seen. No adnexal mass lesions identified. Aorta is normal in both course and caliber. No bulky adenopathy. There is no bowel obstruction or focal bowel wall thickening identified. No acute diverticular disease. The appendix appears normal within the abdominal right lower quadrant. Small fat filled periumbilical hernia, diastases 1.6 cm. Soft tissues are otherwise unremarkable. Bones appear intact. IMPRESSION: 1. No acute intra-abdominal or intrapelvic abnormality identified, specifically the appendix appears normal. 2. Prior cholecystectomy. 3. Nonspecific mildly heterogeneous appearance of the uterus. 4. No bowel obstruction or focal bowel wall thickening. 5. Small fat filled perineural hernia. Electronically signed by: Zachary Rose M.D. 05/05/2017 5:11 PM Dictated Date/Time: 05/05/2017 5:04 PM Laboratory Results 05/05/17 15:35 Red Blood Count 4.29, Mean Corpuscular Volume 88.3, Mean Corpuscular Hemoglobin 30.8, Mean Corpuscular Hemoglobin Concent 34.8, Mean Platelet Volume 8.7, Neutrophils (%) (Auto) 66.8, Lymphocytes (%) (Auto) 24.5, Monocytes (%) (Auto) 6.6, Eosinophils (%) (Auto) 1.1, Basophils (%) (Auto) 0.3, Neutrophils # (Auto) 7.67, Lymphocytes # (Auto) 2.82, Monocytes # (Auto) 0.76, Eosinophils # (Auto) 0.13, Basophils # (Auto) 0.04 05/05/17 15:35 Test 05/05/17 15:35 White Blood Count 11.50 K/uL (4.8-10.8) Red Blood Count 4.29 M/uL (4.2-5.4) Hemoglobin 13.2 g/dL (12.0-16.0) Hematocrit 37.9 % (37-47) Mean Corpuscular Volume 88.3 fL (80-100) Mean Corpuscular Hemoglobin 30.8 pg (25-34) Mean Corpuscular Hemoglobin Concent 34.8 g/dl (32-36) Platelet Count 346 K/uL (130-400) Mean Platelet Volume 8.7 fL (7.4-10.4) Neutrophils (%) (Auto) 66.8 % Lymphocytes (%) (Auto) 24.5 % Monocytes (%) (Auto) 6.6 % Eosinophils (%) (Auto) 1.1 % Basophils (%) (Auto) 0.3 % Neutrophils # (Auto) 7.67 K/uL (1.4-6.5) Lymphocytes # (Auto) 2.82 K/uL (1.2-3.4) Monocytes # (Auto) 0.76 K/uL (0.11-0.59) Eosinophils # (Auto) 0.13 K/uL (0-0.5) Basophils # (Auto) 0.04 K/uL (0-0.2) RDW Standard Deviation 41.7 fL (36.4-46.3) RDW Coefficient of Variation 13.0 % (11.5-14.5) Immature Granulocyte % (Auto) 0.7 % Immature Granulocyte # (Auto) 0.08 K/uL (0.00-0.02) Urine Color YELLOW Urine Appearance CLEAR (CLEAR) Urine pH 6.5 (4.5-7.5) Urine Specific [place] 1.028 (1.000-1.030) Urine Protein NEG (NEG) Urine Glucose (UA) NEG (NEG) Urine Ketones TRACE (NEG) Urine Occult Blood NEG (NEG) Urine Nitrite NEG (NEG) Urine Bilirubin NEG (NEG) Urine Urobilinogen NEG (NEG) Urine Leukocyte Esterase SMALL (NEG) Urine WBC (Auto) 5-10 /hpf (0-5) Urine RBC (Auto) 0-4 /hpf (0-4) Urine Hyaline Casts (Auto) 1-5 /lpf (0-5) Urine Epithelial Cells (Auto) >30 /lpf (0-5) Urine Bacteria (Auto) 1+ (NEG) Urine Test NEG (NEG) Anion Gap 8.0 mmol/L (3-11) Est Creatinine Clear Calc Drug Dose 82.8 ml/min Estimated GFR () 90.1 Estimated GFR (Non- 77.8 BUN/Creatinine Ratio 20.9 (10-20) Calcium Level 8.7 mg/dl (8.5-10.1) Total Bilirubin 0.3 mg/dl (0.2-1) Direct Bilirubin < 0.1 mg/dl (0-0.2) Aspartate Amino Transf (AST/SGOT) 9 U/L (15-37) Alanine Aminotransferase (ALT/SGPT) 19 U/L (12-78) Alkaline Phosphatase 49 U/L (45-117) Total Protein 7.8 gm/dl (6.4-8.2) Albumin 3.4 gm/dl (3.4-5.0) Lipase 162 U/L (73-393) Laboratory studies as stated above per my review. Medications Administered Medications (Trade) Dose Ordered Sig/Shelli Route Start Time Stop Time Status Last Admin Dose Admin Sodium Chloride 1,000 ml @ 999 mls/hr Q1H1M STAT IV 05/05/17 15:34 05/05/17 16:34 DC 05/05/17 15:47 999 MLS/HR Ketorolac Tromethamine (Toradol Inj) 30 mg NOW STAT IV 05/05/17 15:34 05/05/17 15:37 DC 05/05/17 16:21 30 MG Ondansetron HCl (Zofran Inj) 4 mg NOW STAT IV 05/05/17 16:18 05/05/17 16:19 DC 05/05/17 16:21 4 MG ED Course 1524: Past medical records reviewed. The patient was evaluated in room B11, and a complete history and physical examination were performed. 1534: Toradol 30mg IV, Sodium Chloride 1000 ml @ 999 mls/hr IV 1618: Zofran 4mg IV 1628: I reevaluated the patient, and she was still having some right lower quadrant pain. She states that this feels different than her chronic pain. I discussed the risks and benefits of a CT scan, and she wants one. 1722: Upon reevaluation, the patient is doing well. I discussed the results and treatment plan with her. She verbalized agreement of the treatment plan. The patient was discharged home. Medical Decision Differentials include, but are not limited to; gynecologic process, , kidney stone, appendicitis, concussion, and traumatic injury. This patient comes in as described above. She was placed in room B 11. She's having lower abdominal pain. She also fell and hit her head. She does fall frequently and has an MRI scheduled in a couple weeks. She looks well on exam. She has no external signs of trauma to her head. She has a Wesley Coma Score 15 and a normal neurologic exam. Her abdomen is minimally tender [facility] multiple times for abdominal pain before she denies . IV access established was given Toradol 30 mg IV as well as IV fluids. Urinalysis and multiple blood testing was obtained. She's reassessed frequently. She does have an elevated white count and she's tender in the right lower quadrant. I talked her about doing a CAT scan she's had multiple CAT scans in the past however given the fact that she is tender in the lower quadrant with a white count I do think is indicated at this point she says this feels different than her previous abdominal pain. I explained the risks and the benefits. She freely consents. The CAT scan with unremarkable. I did not do a CAT scan of her head she has a normal neurologic exam and I do not think is indicated and again when I reduce her radiation exposure. She will be discharged to home. She'll return if: increasing pain, worsening of symptoms, any new problems or concerns. I encouraged her to follow up with her regular doctor for recheck. She was happy with plan discharge home. Head Trauma GCS Score: 15 Medication Reconcilliation Current Medication List: was personally reviewed by me Blood Pressure Screening Patient's blood pressure: Elevated blood pressure Blood pressure disposition: Elevated BP felt to be situational Impression Primary Impression: Right lower quadrant abdominal pain Additional Impression: Concussion Scribe Attestation The scribe's documentation has been prepared under my direction and personally reviewed by me in its entirety. I confirm that the note above accurately reflects all work, treatment, procedures, and medical decision making performed by me. Departure Information Dispostion Home / Self-Care Referrals Dennis Khan M.D. (PCP) Forms Call Back Authorization, HOME CARE DOCUMENTATION FORM, IMPORTANT VISIT INFORMATION Patient Instructions My [facility] [place] [employer] Additional Instructions Rest. Drink plenty of fluids. Return if: Increasing pain, worsening of symptoms, fever or chills, not acting like self, numbness or weakness, any new problems or concerns Follow-up with your doctor 1-2 days for recheck Problem Qualifiers
[2017-05-05 15:48] LABS: BASO % 0.3 %; BASO ABS # 0.04 K/uL (0-0.2); EOS % 1.1 %; EOS ABS # 0.13 K/uL (0-0.5); HEMATOCRIT 37.9 % (37-47); HEMOGLOBIN 13.2 g/dL (12.0-16.0); IG# 0.08 K/uL (0.00-0.02); LYMPH % 24.5 %; LYMPH ABS # 2.82 K/uL (1.2-3.4); MEAN CELL VOLUME 88.3 fL (80-100); MEAN CORPUSCULAR HEMOGLOBIN 30.8 pg (25-34); MEAN CORPUSCULAR HGB CONC 34.8 g/dl (32-36); MEAN PLATELET VOLUME 8.7 fL (7.4-10.4); MONO % 6.6 %; MONO ABS # 0.76 K/uL (0.11-0.59); NEUT % 66.8 %; NEUT ABS # 7.67 K/uL (1.4-6.5); PLATELET COUNT 346 K/uL (130-400); RED CELL DISTRIBUTION WIDTH SD 41.7 fL (36.4-46.3)
[2017-05-05 16:04] LABS: ALBUMIN 3.4 gm/dl (3.4-5.0); ALT/SGPT 19 U/L (12-78); AST/SGOT 9 U/L (15-37); BLOOD UREA NITROGEN 19 mg/dl (7-18); CALCIUM 8.7 mg/dl (8.5-10.1); CARBON DIOXIDE 21 mmol/L (21-32); GLUCOSE 116 mg/dl (70-99); LIPASE 162 U/L (73-393); POTASSIUM 3.6 mmol/L (3.5-5.1); SODIUM 139 mmol/L (136-145)
[2017-05-05 16:07] LABS: ALKALINE PHOSPHATASE 49 U/L (45-117); TOTAL PROTEIN 7.8 gm/dl (6.4-8.2)
[2017-05-05] MEDS ORDERED: ONDANSETRON INJ 2 MG/ML 2 ML VIAL IV STA (16:18)
[2017-05-05] MEDS ORDERED: ONDANSETRON INJ 2 MG/ML 2 ML VIAL ONE (16:19)
[2017-05-05] MEDS ORDERED: OPTIRAY 320 IV PRN (16:45)
--- NOTE | 2017-05-05 17:13 | DIAGNOSTIC IMAGING REPORT ---
ABDOMEN AND PELVIS CT WITH IV CONTRAST CT DOSE: 1046.35 mGy.cm HISTORY: Acute right lower quadrant abdominal pain with concern for acute appendicitis eval for appy TECHNIQUE: Multiaxial CT images of the abdomen and pelvis were performed following the use of intravenous contrast. A dose lowering technique was utilized adhering to the principles of ALARA. COMPARISON STUDY: CT abdomen and pelvis 01/08/2017. FINDINGS: Lung bases are clear. There is no pneumatosis or pneumoperitoneum identified. The imaged inferior cardiac chambers are unremarkable. Prior cholecystectomy. The liver, spleen, pancreas and left adrenal gland are within normal limits. There is mild nodularity of the left adrenal gland medial limb which is unchanged measuring 7 x 8 mm which is indeterminate, however statistically benign. Cortical lobulation of the kidneys bilaterally noted. 1.7 x 1.4 center low attenuating lesion of the posterior interpolar right kidney is unchanged suggesting renal cyst. Previously noted adjacent 3 mm calculus is no longer present. No renal calculi or obstructive uropathy. Ureters and urinary bladder are within normal limits. Uterus appears mildly heterogeneous without focal mass definitively seen. No adnexal mass lesions identified. Aorta is normal in both course and caliber. No bulky adenopathy. There is no bowel obstruction or focal bowel wall thickening identified. No acute diverticular disease. The appendix appears normal within the abdominal right lower quadrant. Small fat filled periumbilical hernia, diastases 1.6 cm. Soft tissues are otherwise unremarkable. Bones appear intact. IMPRESSION: 1. No acute intra-abdominal or intrapelvic abnormality identified, specifically the appendix appears normal. 2. Prior cholecystectomy. 3. Nonspecific mildly heterogeneous appearance of the uterus. 4. No bowel obstruction or focal bowel wall thickening. 5. Small fat filled perineural hernia. Electronically signed by: Zachary Rose M.D. 05/05/2017 5:11 PM Dictated Date/Time: 05/05/2017 5:04 PM
[2017-05-05 17:30] VITALS: BP 142/111; PULSE 80; O2SAT 98
== END 2017-05-05 17:30 | disposition home or self-care (01) ==
LOC: EDBD 15:21 → C.EDB 15:22
DX: R10.31 Right lower quadrant pain (principal); K42.9 Umbilical hernia without obstruction or gangrene; S06.0X9A Concussion with loss of consciousness of unspecified duration, initial encounter; W01.10XA Fall on same level from slipping, tripping and stumbling with subsequent striking against unspecified object, initial encounter; Y92.89 Other specified places as the place of occurrence of the external cause; M79.7 Fibromyalgia; F31.81 Bipolar II disorder; F41.9 Anxiety disorder, unspecified; E03.9 Hypothyroidism, unspecified; J45.909 Unspecified asthma, uncomplicated; Z79.899 Other long term (current) drug therapy

== ENCOUNTER 2017-06-17 14:59 | Emergency (ER) | payer OTHER ==
[~2017-06-17] VITALS: Ht 160 cm; Wt 98.5 kg
[~2017-06-17 14:59] MED LIST changes: -ALBU18002 INH; -CLR10 PO; -CYAN10005 PO; -CYCL10TA6 PO; -DICY1TAB25 PO; -DOCU100C31 PO; -EFFSR150 PO; -EPP3/2 IM; -FERR1TAB62 PO; -FLNIN/ NAE; -HYDR-3124 PO; -LAMO200T35 PO; -LEVO50TA6 PO; -MELO15TA4 PO; -NORE-3 PO; -NRN600 PO; -PANT40TA2 PO; -PRAZ2CAP2 PO; -TOPI100T34 PO
[2017-06-17 15:02] VITALS: TEMP 36.9; Ht 160 cm; Wt 98.5 kg
[2017-06-17] MEDS ORDERED: ALBUT/IPRATROP 3MG/0.5MG NEB 3 ML VIAL INH STA (15:30)
[2017-06-17] MEDS ORDERED: DOCU100C31 PO (15:45)
--- NOTE | 2017-06-17 16:01 | DIAGNOSTIC IMAGING REPORT ---
CHEST 2 VIEWS ROUTINE HISTORY: 42 years-old Female Cough, congestion, green sinus drainage acute cough and congestion COMPARISON: Chest radiograph 04/20/2017 TECHNIQUE: PA and lateral views of the chest FINDINGS: Cardiomediastinal and hilar silhouettes are within normal limits. No pneumothorax, pleural effusion, focal airspace consolidation or overt pulmonary edema. The bones of the chest appear grossly intact. Cholecystectomy clips are noted. IMPRESSION: No acute process. The above report was generated using voice recognition software. It may contain grammatical, syntax or spelling errors. Electronically signed by: Zachary Rose M.D. 06/17/2017 4:00 PM Dictated Date/Time: 06/17/2017 3:59 PM
[2017-06-17] MEDS ORDERED: DICY1TAB25 PO (16:08)
[2017-06-17] MEDS ORDERED: PRAZ2CAP2 PO (16:08)
--- NOTE | 2017-06-17 16:08 | EMERGENCY ROOM VISIT NOTE ---
History First contact with patient: 15:05 Chief Complaint: COUGH Stated Complaint: COUGHING AND CONGESTION Nursing Triage Summary: patient with cough and congestion in the chest for two day. afebrile History of Present Illness The patient is a 42 year old female who presents to the Emergency Room via private vehicle with complaints of "coughing and congestion". The patient states that for the past 2 days she has been experiencing a cough and congestion. She notes that her ears feel clogged, and also she has sinus congestion and drainage. It is green in nature. There is also a cough which is minimally productive of clear sputum. She has a history of asthma. She notes minimal chest pain that is worse with coughing and not worse with exertion. There is also minimal shortness of breath but has not needed to use her albuterol inhaler. Is also some dental pain and a headache. There is nausea but no vomiting. There is minimal diarrhea and minimal epigastric abdominal pain which is worse with food. She rates her current pain is a 9/10. Review of Systems A complete 6-point Review of Systems was discussed with the patient, with pertinent positives and negatives listed in the History of Present Illness. All remaining Review of Systems questions can be considered negative unless otherwise specified. Past Medical/Surgical History Medical Problems: (1) Acute bilateral low back pain (2) Anxiety (3) Asthma (4) Bipolar II disorder (5) E. coli septicemia (6) Fibromyalgia (7) Gram negative septicemia (8) H/O migraine (9) H/O renal calculi (10) H/O urinary tract infection (11) History of low back pain (12) Hypothyroidism Surgical Problems: (1) S/P cholecystectomy Social History Problems: (1) Anxiety State Nos (2) Asthma, Unspecified (3) Migraine Unspecified W/O Intractable Migraine (4) Pancreatitis Family History Diabetes mellitus FH: cancer FH: heart disease FH: lung disease FHx: gallbladder disease Kidney disease or stones Social History Smoking Status: Never Smoker Alcohol Use: none Drug Use: none Marital Status: single Housing Status: lives with family Occupation Status: disabled Current/Historical Medications Scheduled Azithromycin (Zithromax), 250 MG PO DAILY Cyanocobalamin (Vitamin B-12), 1,000 MCG PO QAM Cyclobenzaprine Hcl (Flexeril), 10 MG PO HS Cyclobenzaprine Hcl (Flexeril), 5 MG PO QAM Dicyclomine HCl (Dicyclomine HCl), 20 MG PO BID Docusate Sodium (Docusate Sodium), 100 MG PO QAM Ferrous Sulfate (Ferrous Sulfate), 325 MG PO QDB Fluticasone Propionate (Inhala (Flovent Diskus), 1 PUFF INH BID Gabapentin (Gabapentin), 600 MG PO TID Lamotrigine (Lamictal), 200 MG PO DAILY Levothyroxine Sodium (Levothyroxine Sodium), 50 MCG PO QAM Loratadine (Claritin), 10 MG PO QAM Meloxicam (Mobic), 15 MG PO DAILY Norethin Acet & Estrad-Fe (Gildess Fe ), 1 TAB PO QAM Pantoprazole (Pantoprazole Sodium), 40 MG PO QAM Prazosin Hcl (Prazosin), 4 MG PO HS Prednisone (Prednisone Tab), 1 TAB PO DAILY Topiramate (Topamax), 200 MG PO BID Venlafaxine Hcl (Effexor Extended Rel), 150 MG PO QAM Scheduled PRN Albuterol Sulfate (Proair Respiclick), 2-4 PUFFS INH Q4H PRN for Cough/ Shortness Of Breath Epinephrine (Epipen), 0.3 MG IM UD PRN for ALLERGIC REACTION Fluticasone Propionate (Fluticasone Propionate), 2 SPRAYS JERRY QAM PRN for Nasal Congestion Hydroxyzine Hcl (Atarax), 75 MG PO TID PRN for Itching Mupirocin 2% (Bactroban 2%), 1 APPLN TOP UD PRN for Skin Impairment Rizatriptan Benzoate (Rizatriptan Benzoate), 10 MG PO UD PRN for Migraine Physical Exam Vital Signs Date Time Temp Pulse Resp B/P (MAP) Pulse Ox O2 Delivery O2 Flow Rate FiO2 06/17/17 17:00 100 18 147/102 96 06/17/17 15:38 98 Room Air 06/17/17 15:02 36.9 105 18 151/86 95 Room Air Physical Exam VITAL SIGNS - Vital signs and nursing notes were reviewed. Stable. Slightly tachycardic at 105. GENERAL -42-year-old female appearing her stated age who is in no acute distress. She is smiling, sitting upright in bed and converses well. She is nontoxic in appearance. Communicates well with provider and answers questions appropriately. SKIN - Without rashes. HEAD - NC/AT. EYES -Sclera anicteric. EARS - No deformities of external structures noted on gross examination bilaterally. No pain elicited with palpation of the tragus bilaterally. External auditory canals without discharge or otorrhea. Tympanic membranes pearly maddox without retraction or bulging. No fluid or purulent material visualized behind the TM. Handle of malleus, umbo, cone of light, pars tensa/ flaccid all easily visualized. NOSE - Midline and without cyanosis. No epistaxis or purulent drainage noted. MOUTH/OROPHARYNX - Without perioral cyanosis. LUNGS - Chest wall symmetric without accessory muscle use, intercostals retractions, or central cyanosis. Normal vesicular breath sounds CTA B/L. No wheezes, rales, or rhonchi appreciated. CARDIAC - RRR with S1/S2. No murmur, rubs, or gallops appreciated. ABDOMEN - Abdominal contour normal without pulsations or visible masses. BS normoactive all four quadrants. No tenderness, palpable masses, hepatosplenomegaly, or ascites noted. Medical Decision & Procedures ER Provider Diagnostic Interpretation: CHEST 2 VIEWS ROUTINE HISTORY: 42 years-old Female Cough, congestion, green sinus drainage acute cough and congestion COMPARISON: Chest radiograph 04/20/2017 TECHNIQUE: PA and lateral views of the chest FINDINGS: Cardiomediastinal and hilar silhouettes are within normal limits. No pneumothorax, pleural effusion, focal airspace consolidation or overt pulmonary edema. The bones of the chest appear grossly intact. Cholecystectomy clips are noted. IMPRESSION: No acute process. The above report was generated using voice recognition software. It may contain grammatical, syntax or spelling errors. Electronically signed by: Zachary Rose M.D. 06/17/2017 4:00 PM Dictated Date/Time: 06/17/2017 3:59 PM Medications Administered Medications (Trade) Dose Ordered Sig/Shelli Route Start Time Stop Time Status Last Admin Dose Admin Albuterol/ Ipratropium (Duoneb) 3 ml NOW STAT INH 06/17/17 15:30 06/17/17 15:32 DC 06/17/17 15:37 3 ML Azithromycin (Zithromax Tab) 500 mg NOW STAT PO 06/17/17 16:58 3/5/18 16:59 DC 06/17/17 17:11 500 MG Medical Decision Patient was seen and evaluated as above. Her chief complaints are coughing and congestion. She is nontoxic on exam. After obtaining a thorough history and physical examination the above work up was performed. Chest x-ray negative. She was given a breathing treatment and feeling better. I do not suspect CT or PE given her constitutional symptoms that accompany her presentation here today. I suspect she is likely experiencing a viral bronchitis however given her underlying history of asthma and risks will treat with azithromycin and prednisone. She was also seen by the attending physician. The patient was educated upon management, had questions answered prior to discharge, and was discharged home in good condition. Case was discussed with the attending physician I attest that I have personally reviewed the patient medication list. The patient's blood pressure was reviewed and was found to be elevated likely secondary to situation, she is to follow with family doctor following todays visit In the evaluation and treatment of this patient the following differential diagnoses were entertained: Bronchitis, asthma exacerbation, pneumonia, CT, PE, among others. Impression Primary Impression: Cough Additional Impression: Acute bronchitis Departure Information Dispostion Home / Self-Care Condition GOOD Prescriptions Azithromycin (ZITHROMAX) 250 Mg Tab 250 MG PO DAILY, #4 TAB Prov: Nahun Neal PA-C 06/17/17 Prednisone (Prednisone Tab) 20 Mg Tab 1 TAB PO DAILY for 5 Days, #5 TAB Prov: Nahun Neal PA-C 06/17/17 Referrals Dennis Khan M.D. (PCP) Patient Instructions My [facility] Additional Instructions You were seen in the emergency department for cough and congestion. At this time I suspect you have acute bronchitis. As we discussed given your underlying history of asthma I will treat the bronchitis with azithromycin. Your given the first dose here. The next dose is tomorrow around 5 PM. This is each day then for the remainder of the dosage. I also recommend steroids. Please pick remover the prednisone prescription and begin that this evening. Please call your family doctor to schedule follow-up. Please rest and stay well-hydrated. Please use your inhaler. Please return with any new/concerning symptoms. Problem Qualifiers
[2017-06-17] MEDS ORDERED: CYCL10TA6 PO ×2 (16:18→17:14)
[2017-06-17] MEDS ORDERED: EFFSR150 PO (16:35)
[2017-06-17] MEDS ORDERED: NRN600 PO (16:35)
--- NOTE | 2017-06-17 16:42 | EMERGENCY ROOM VISIT NOTE ---
ED Visit Note First contact with patient: 15:05 The patient was seen and examined with Nahun Bright Pa-C. I agree with the history, physical and findings. Please see the note for disposition and details. The patient is doing well. After breathing treatment her lungs are clear. Given her asthma history she will use her inhalers but also be placed on prednisone and Zithromax. Her chest discomfort is only after coughing. She has no baseline chest pain or exertional chest pain. No pleuritic type pain. Imaging was unremarkable. Currently the patient is feeling well on my assessment and is comfortable with conservative management. If she worsens in any way she will be back.
[2017-06-17] MEDS ORDERED: AZIT-60 PO (16:46)
[2017-06-17] MEDS ORDERED: PRED20TA2 PO (16:46)
[2017-06-17] MEDS ORDERED: AZITHROMYCIN 250 MG TAB PO STA (16:58)
[2017-06-17 17:00] VITALS: BP 147/102; PULSE 100; O2SAT 96
[2017-06-17] MEDS ORDERED: CYAN10005 PO (17:14)
[2017-06-17] MEDS ORDERED: FERR1TAB62 PO (18:06)
[2017-06-17] MEDS ORDERED: ALBU18002 INH (18:06)
[2017-06-17] MEDS ORDERED: MELO-84 PO (18:30)
[2017-06-17] MEDS ORDERED: LAMO200T35 PO (18:30)
[2017-06-17] MEDS ORDERED: HYDR-3124 PO (18:31)
[2017-06-17] MEDS ORDERED: TOPI100T34 PO (18:31)
[2017-06-17] MEDS ORDERED: PANT40TA2 PO (20:13)
[2017-06-17] MEDS ORDERED: FLNIN/ NAE (20:13)
[2017-06-17] MEDS ORDERED: LEVO50TA6 PO (20:13)
[2017-06-17] MEDS ORDERED: CLR10 PO (20:17)
[2017-06-17] MEDS ORDERED: NORE-3 PO (20:18)
[2017-06-17] MEDS ORDERED: EPP3/2 IM (21:52)
== END 2017-06-17 17:05 | disposition home or self-care (01) ==
LOC: C.EDB 15:01
DX: J20.9 Acute bronchitis, unspecified (principal); R05 Cough; Z79.899 Other long term (current) drug therapy; M79.7 Fibromyalgia; F31.81 Bipolar II disorder; F41.9 Anxiety disorder, unspecified; E03.9 Hypothyroidism, unspecified; J45.909 Unspecified asthma, uncomplicated

== ENCOUNTER 2017-06-21 21:00 | Emergency (ER) | payer OTHER ==
[~2017-06-21] VITALS: Ht 162.6 cm; Wt 96.8 kg
[~2017-06-21 21:00] MED LIST changes: +ALBU18002 INH; +AZIT-60 PO; +CLR10 PO; +CYAN10005 PO; +CYCL10TA6 PO; +DICY1TAB25 PO; +DOCU100C31 PO; +EFFSR150 PO; +EPP3/2 IM; +FERR1TAB62 PO; +FLNIN/ NAE; +HYDR-3124 PO; +LAMO200T35 PO; +LEVO50TA6 PO; +MELO-84 PO; +NORE-3 PO; +NRN600 PO; +PANT40TA2 PO; +PRAZ2CAP2 PO; +PRED20TA2 PO; +TOPI100T34 PO
[2017-06-21 21:03] VITALS: TEMP 36.7; Ht 162.6 cm; Wt 96.8 kg
[2017-06-21] MEDS ORDERED: ALBUT/IPRATROP 3MG/0.5MG NEB 3 ML VIAL INH STA (21:22)
--- NOTE | 2017-06-21 21:47 | DIAGNOSTIC IMAGING REPORT ---
CHEST 2 VIEWS ROUTINE CLINICAL HISTORY: COUGH COMPARISON STUDY: 06/17/2017 FINDINGS: The cardiac and mediastinal contours are normal. There is no evidence of focal pulmonary consolidation. There is no evidence of failure. No pleural effusions are visualized.[ IMPRESSION: No active disease in the chest. Electronically signed by: Gray Schultz M.D. 06/21/2017 9:46 PM Dictated Date/Time: 06/21/2017 9:46 PM
[2017-06-21] MEDS ORDERED: PRED50TA PO (22:14)
--- NOTE | 2017-06-21 22:15 | EMERGENCY ROOM VISIT NOTE ---
ED Visit Note First contact with patient: 21:12 CHIEF COMPLAINT: Cough and congestion 6 days HISTORY OF PRESENT ILLNESS: Patient is a 42-year-old female with past medical history significant for asthma among other medical issues who returns to the emergency department for ongoing upper respiratory symptoms. Patient has been sick for about 6 days with sinus and nasal congestion, stuffy, runny nose, sore throat and a cough. She was seen here in the emergency department on the fifth after being ill for only 2 days. She had a chest x-ray at that time which was negative. She was placed on a course of prednisone and a Z-Syed which she has finished. She states that her symptoms are not improving. She is on Flovent and albuterol inhalers. She has not been using any [id number] medications for her symptoms she states that she cannot afford them on her limited income. She did not have any follow-up appointments this week, she states she is scheduled to see her PCP but not until the . She reports bilateral rib pain with coughing, but no chest pain. She feels slightly short of breath. She has not had any fevers. Review of systems as per HPI. All other systems reviewed were negative. 10 systems reviewed. REVIEW OF SYSTEMS: Review of systems as per HPI. All other systems reviewed were negative. 10 systems reviewed. PMH: Electronic medical records are reviewed and summarized as above/below. See Problem List.. SOCIAL HISTORY: Patient lives at home with her mother. She does not smoke.. PHYSICAL EXAM: Vital Signs: Reviewed Nurse's notes. MENTAL STATUS: Patient is a well-appearing 42-year-old white female who is awake and alert and in no acute distress. Vital signs are stable. Oxygen saturation is 97% on room air. There is no conversational dyspnea. EYES: PERRL, EOMI, no discharge or injection. EARS: Tympanic membranes intact, not inflamed, have normal contour. External canals clear. NOSE: Nares patent, turbinates edematous and boggy with clear rhinorrhea. MOUTH: Mucous membranes moist, no lesions, tongue and gums appear normal. THROAT: No pharyngeal injection, exudates, or tonsillar hypertrophy. Airway is patent. NECK: Supple, nontender, no lymphadenopathy. HEART: Regular rate and rhythm without murmurs, ectopy, gallops, or rubs. LUNGS: Clear to auscultation and breath sounds equal, no wheezes, rales, or rhonchi. SKIN: Normal. NEUROLOGICAL: Sensory and motor functions grossly intact. Normal gait. EMERGENCY DEPARTMENT COURSE: The patient was seen and evaluated as above. Old records were reviewed. She was given a DuoNeb treatment. Chest x-ray was obtained and was unremarkable. It was discussed with her that her illness is likely viral in nature, which is why her symptoms have persisted. She has already been treated with a Z-Syed and a course of prednisone. On exam she does not have any wheezing or increased work of breathing. She has a scant, nonproductive cough. She has appropriate inhalers at home. She was agreeable to extend the course of prednisone, and will continue her inhalers. It was not felt that any additional antibiotics were indicated. She was advised that [id number] medications could help with symptomatic relief, and pseudoephedrine and Mucinex were suggested. Differential diagnoses entertained included viral illness, sinusitis, bronchitis , pneumonia, asthma exacerbation, among others. Medication reconciliation: I attest that I have personally reviewed the patient' s current medication list. Blood pressure screening: Patient was found to have a slightly elevated blood pressure due to circumstances. I do not believe that the patient requires hypertension monitoring. CHEST 2 VIEWS ROUTINE CLINICAL HISTORY: COUGH COMPARISON STUDY: 06/17/2017 FINDINGS: The cardiac and mediastinal contours are normal. There is no evidence of focal pulmonary consolidation. There is no evidence of failure. No pleural effusions are visualized. IMPRESSION: No active disease in the chest Problem List Medical Problems: (1) Acute bilateral low back pain Status: Resolved (2) Anxiety Status: Chronic (3) Anxiety State Nos Status: Chronic (4) Asthma Status: Chronic (5) Asthma, Unspecified Status: Chronic (6) Bipolar II disorder Status: Chronic (7) Chest pain Status: Resolved (8) Chest pain, atypical Status: Resolved (9) E. coli septicemia Status: Resolved (10) Fall Status: Resolved (11) Fibromyalgia Status: Chronic (12) Gram negative septicemia Status: Resolved (13) H/O migraine Status: Chronic (14) H/O renal calculi Status: Chronic (15) H/O urinary tract infection Status: Chronic (16) Head injury Status: Resolved (17) History of low back pain Status: Chronic (18) Hypothyroidism Status: Chronic (19) Migraine Unspecified W/O Intractable Migraine Status: Chronic (20) Pancreatitis Status: Chronic (21) Pyelonephritis Status: Resolved (22) UTI (urinary tract infection) Status: Resolved Surgical Problems: (1) S/P cholecystectomy Status: Resolved Current/Historical Medications Scheduled Azithromycin (Zithromax), 250 MG PO DAILY Cyanocobalamin (Vitamin B-12), 1,000 MCG PO QAM Cyclobenzaprine Hcl (Flexeril), 10 MG PO HS Cyclobenzaprine Hcl (Flexeril), 5 MG PO QAM Dicyclomine HCl (Dicyclomine HCl), 20 MG PO BID Docusate Sodium (Docusate Sodium), 100 MG PO QAM Ferrous Sulfate (Ferrous Sulfate), 325 MG PO QDB Fluticasone Propionate (Inhala (Flovent Diskus), 1 PUFF INH BID Gabapentin (Gabapentin), 600 MG PO TID Lamotrigine (Lamictal), 200 MG PO DAILY Levothyroxine Sodium (Levothyroxine Sodium), 50 MCG PO QAM Loratadine (Claritin), 10 MG PO QAM Meloxicam (Mobic), 15 MG PO DAILY Norethin Acet & Estrad-Fe (Gildess Fe .09/11), 1 TAB PO QAM Pantoprazole (Pantoprazole Sodium), 40 MG PO QAM Prazosin Hcl (Prazosin), 4 MG PO HS Prednisone (Prednisone Tab), 1 TAB PO DAILY Prednisone (Prednisone), 50 MG PO DAILY Topiramate (Topamax), 200 MG PO BID Venlafaxine Hcl (Effexor Extended Rel), 150 MG PO QAM Scheduled PRN Albuterol Sulfate (Proair Respiclick), 2-4 PUFFS INH Q4H PRN for Cough/ Shortness Of Breath Epinephrine (Epipen), 0.3 MG IM UD PRN for ALLERGIC REACTION Fluticasone Propionate (Fluticasone Propionate), 2 SPRAYS JERRY QAM PRN for Nasal Congestion Hydroxyzine Hcl (Atarax), 75 MG PO TID PRN for Itching Mupirocin 2% (Bactroban 2%), 1 APPLN TOP UD PRN for Skin Impairment Rizatriptan Benzoate (Rizatriptan Benzoate), 10 MG PO UD PRN for Migraine Allergies Coded Allergies: BEE STING (Verified Allergy, Severe, ANAPHYLAXIS, 05/05/17) Morphine (Verified Adverse Reaction, Intermediate, HALLUCINATIONS, 05/05/17 ) Vital Signs Date Time Temp Pulse Resp B/P (MAP) Pulse Ox O2 Delivery O2 Flow Rate FiO2 06/21/17 22:25 96 18 164/105 95 06/21/17 21:27 Room Air 06/21/17 21:03 36.7 108 18 146/99 97 Room Air Medications Administered Medications (Trade) Dose Ordered Sig/Shelli Route Start Time Stop Time Status Last Admin Dose Admin Albuterol/ Ipratropium (Duoneb) 3 ml NOW STAT INH 06/21/17 21:22 06/21/17 21:23 DC 06/21/17 21:42 3 ML Departure Information Impression Primary Impression: URI (upper respiratory infection) Additional Impression: Asthmatic bronchitis Prescriptions Prednisone (Prednisone) 50 Mg Tab 50 MG PO DAILY for 5 Days, #5 TAB Prov: Lilian Zavala PA 06/21/17 Referrals Dennis Khan M.D. (PCP) Patient Instructions My [facility] Additional Instructions Continue inhalers. Prednisone 50mg: Once daily until the prescription is finished. It is best to take this earlier in the day as some patients note occasional difficulty falling asleep when taken in the late evening. Acetaminophen(Tylenol) may be used for fever or pain. Use 1000mg every six hours as needed. Avoid using more than 3000mg in a 24 hour period. (AND/OR) Ibuprofen(Motrin, Advil) may be used for fever or pain. Use 600mg every six hours as needed. Take with food. Avoid using more than 2400mg in a 24 hour period. Do not use 2400mg per day for more than three consecutive days without physician direction. Prolonged inappropriate use can lead to stomach upset or ulcers. Pseudoephedrine(Sudaphed): 30-60mg every 6 hours as needed for nasal congestion. Do not take this with other stimulant products or supplements. Guaifenesin (Mucinex) : Take 1200 mg every 12 hours as needed for nasal/chest congestion, to help thin secretions. Continue current medications. Return to the ER for chest pain, difficulty breathing, fevers, vomiting, worsening of your condition, or as needed. Follow up with your primary physician this week for a recheck of your current condition. Problem Qualifiers
[2017-06-21 22:25] VITALS: BP 164/105; PULSE 96; O2SAT 95
== END 2017-06-21 22:26 | disposition home or self-care (01) ==
LOC: C.EDB 21:01 → C.EDC 22:26
DX: J06.9 Acute upper respiratory infection, unspecified (principal); J45.909 Unspecified asthma, uncomplicated; F41.9 Anxiety disorder, unspecified; F31.81 Bipolar II disorder; M54.5 Low back pain; G89.29 Other chronic pain; E03.9 Hypothyroidism, unspecified; K86.1 Other chronic pancreatitis; Z87.442 Personal history of urinary calculi; Z87.440 Personal history of urinary (tract) infections; Z90.49 Acquired absence of other specified parts of digestive tract; Z91.030 Bee allergy status; Z88.6 Allergy status to analgesic agent

== ENCOUNTER 2017-07-03 13:49 | Emergency (ER) | payer OTHER ==
[~2017-07-03] VITALS: Ht 162.6 cm; Wt 98.9 kg
[~2017-07-03 13:49] MED LIST changes: -AZIT-60 PO; -PRED20TA2 PO
[2017-07-03 13:54] VITALS: TEMP 36.9; Ht 162.6 cm; Wt 98.9 kg
--- NOTE | 2017-07-03 13:57 | EMERGENCY ROOM VISIT NOTE ---
ED Visit Note First contact with patient: 13:53 CHIEF COMPLAINT: Right lower quadrant abdominal pain HISTORY OF PRESENTING ILLNESS: This is a 42-year-old female who presented to the emergency department via EMS with complaint of right lower quadrant abdominal pain started 2 days ago. The patient states that she was at her primary care provider's office today for routine visit and mentioned that she was having this abdominal pain, she was sent here for further evaluation to rule out appendicitis. She states her pain has been constant, aching and occasionally sharp, worse with movement in certain positions, better laying on her side and with rest, currently rates as 8/10. She takes gabapentin and Mobic regularly as part of her chronic pain regimen, she has not taken any other as needed medications for the pain. The patient states that she has had associated nausea and a decreased appetite, as well as chills and sweats with this pain, she denies any vomiting, diarrhea, blood in the stool, no fevers, rash. She denies any dysuria, urinary frequency, or urgency and denies cloudy or foul-smelling urine. Patient has past medical history significant for pancreatitis, pyelonephritis, chronic back pain and fibromyalgia, with multiple CT scans of the abdomen and pelvis in the past. She denies any chest pain, shortness of breath, dizziness or syncope, headaches, or rash. REVIEW OF SYSTEMS: A complete 10 point review of systems was reviewed with the patient with pertinent positives and negatives as per history of present illness. All else were negative. PAST MEDICAL HISTORY: Reviewed in the chart SOCIAL HISTORY: Lives at home. Denies tobacco use, alcohol or recreational drug use. ALLERGIES: Reviewed in chart. PHYSICAL EXAM: CONSTITUTIONAL: Pleasant and cooperative. No acute distress. Mildly dehydrated , but otherwise well appearing and well nourished. HEENT: Normocephalic, atraumatic. Pupils equal, round and reactive to light, EOMI. TMs normal. Pharynx normal. Tacky mucous membranes. NECK: Supple, full active range of motion without discomfort. RESPIRATORY: Clear to auscultation bilaterally with no wheezing, crackles, rhonchi or stridor. Equal expansion bilaterally. CARDIOVASCULAR: Regular rate and rhythm with no murmurs, rubs or gallops. Normal peripheral perfusion. No edema. GASTROINTESTINAL: Soft, moderately tender in the right lower quadrant and periumbilical region, nondistended. Positive McBurney's point tenderness. Negative Rovsing, negative psoas. No rebound tenderness or guarding. No palpable masses or HSM. Bowel sounds present in all quadrants. No CVA tenderness. MUSCULOSKELETAL: Full range of motion of all joints without discomfort. INTEGUMENTARY: No rash or other significant dermatologic conditions noted. NEUROLOGIC: Alert and oriented X 4 with normal affect. Normal strength and sensation of her extremities. No focal neurologic deficits noted. Normal speech. ED COURSE AND MEDICAL DECISION MAKING: CC: Patient presenting with complaint of right lower quadrant abdominal pain DIFFERENTIAL DIAGNOSIS: Includes, but not limited to appendicitis, mesenteric adenitis, ovarian cyst, ovarian torsion, ectopic , gastroenteritis, colitis, inflammatory bowel disease, UTI, pyelonephritis, constipation, musculoskeletal strain/pain, chronic abdominal pain, among others. INTERPRETATION OF LABS: Leukocytosis with left shift, no anemia, no significant electrolyte abnormalities, normal renal function, and normal liver enzymes and lipase. UA with moderate leuk esterase and WBCs with +1 bacteria, but also large epithelial cells. Urine negative. IMAGING: APPENDIX ULTRASOUND HISTORY: Right lower quadrant abdominal pain. COMPARISON: Abdomen and pelvis CT 05/05/2017. FINDINGS: Transabdominal scanning of the right lower quadrant was performed. The appendix was not identified. There are no fluid collections or masses within the right lower quadrant. Lobulated hypoechoic area within the right lower quadrant favors a bowel loop. This will be better appreciated on the same day abdomen and pelvis CT. IMPRESSION: The appendix was not identified. ----- ABDOMEN AND PELVIS CT WITH IV AND ORAL CONTRAST CT DOSE: 1112.54 mGy.cm HISTORY: Acute generalized abdominal pain ABDOMINAL PAIN/GI TECHNIQUE: Multiaxial CT images of the abdomen and pelvis were performed following the use of intravenous and oral contrast. A dose lowering technique was utilized adhering to the principles of ALARA. COMPARISON STUDY: Ultrasound of the abdomen 07/03/2017, CT 05/05/2017 FINDINGS: Minimal dependent subsegmental bibasilar atelectasis with trace trace bilateral pleural effusions. There is no pneumatosis or pneumoperitoneum identified. Imaged inferior cardiac chambers are unremarkable. Prior cholecystectomy. The liver, pancreas and right adrenal gland are unremarkable. Indeterminate 8 mm soft tissue attenuating lesion of the medial limb left adrenal gland, unchanged. 6 mm low attenuating lesion of the mid spleen is stable suggesting benign etiology. Low attenuating lesions of the kidneys bilaterally redemonstrated measuring up to 1.5 cm on the right suggesting renal cysts. There is no renal calculi or obstructive uropathy. Cortical lobulations involving the kidneys bilaterally. The ureters and partially decompressed urinary bladder are unremarkable. Follicular changes are seen within the bilateral ovaries. Uterus is unremarkable. No aortic aneurysm or pathologic adenopathy. There is no bowel obstruction or focal bowel wall thickening. There is moderate volume of formed stool involving the transverse colon. The appendix appears normal within the abdominal right lower quadrant. Fat filled periumbilical hernia is noted, diastases 1.7 cm. Bones appear intact. IMPRESSION: 1. No acute intra-abdominal or intrapelvic abnormality identified. Normal appendix. 2. No bowel obstruction or focal bowel wall thickening. 3. Mild dependent subsegmental bibasilar atelectasis with trace bilateral pleural effusions. 4. Small fat filled periumbilical hernia. MEDICATION RECONCILIATION: I attest that I have personally reviewed the patient 's current medication list. INITIAL VITAL SIGNS REVIEW: I reviewed the patient's initial vital signs and interpret them as follows: T: Afebrile; BP: Hypertensive; HR: Within normal limits; RR: Within normal limits; Pulse Ox: Within normal limits on room air. Blood pressure screening: The patient was found to have an elevated blood pressure and was referred to their primary doctor for recheck and further treatment. SUMMARY: Patient was evaluated at bedside, history and physical exam performed. Patient is alert and oriented, no acute distress but does appear uncomfortable, resting, and stretcher. Patient does have moderate tenderness to palpation of the right lower quadrant and right periumbilical area. Abdomen is otherwise nontender. Review of the patient's chart demonstrates multiple abdominal/pelvis CTs in the past, most recently 2 months ago. I did discuss the frequent CTs with the patient, she would like to perform an ultrasound of the right lower quadrant first before doing another CT. I explained to the patient we would most likely not be able to rule out appendicitis without doing a CT, she verbalized understanding. We will do the ultrasound first and if unable to determine the status of the appendix, the patient would like to proceed to the CT. Orders were placed at bedside for labs, UA and urine , IV fluids for hydration, IV Zofran for nausea, RLQ ultrasound to evaluate for appendicitis. Will also perform oral prep for abd/pelvis CT. Patient requested Toradol for pain, I explained that this should not be given until results are back to ensure no surgical problems. She did not want narcotics and was okay waiting for results to receive pain medications. Patient discussed with Dr. Vizcarra, who also evaluated the patient and agrees with my assessment and plan. Labs and imaging reviewed as above, leukocytosis, which may be related to recent steroid course, no acute abnormality noted. Patient was given IV Toradol for her pain after CT results, and reports that this has been helping her pain. Patient reassessed multiple times throughout ED stay, she remained stable, pain and nausea improved, and she felt well for discharge. Patient was updated on all results and plan for discharge, she was encouraged to follow up closely with her PCP if her symptoms continue. Patient was also given strict return precautions should her symptoms worsen, she verbalized understanding. Patient was discharged home in stable condition and ambulatory. Problem List Medical Problems: (1) Acute bilateral low back pain Status: Resolved (2) Anxiety Status: Chronic (3) Anxiety State Nos Status: Chronic (4) Asthma Status: Chronic (5) Asthma, Unspecified Status: Chronic (6) Bipolar II disorder Status: Chronic (7) Chest pain Status: Resolved (8) Chest pain, atypical Status: Resolved (9) E. coli septicemia Status: Resolved (10) Fall Status: Resolved (11) Fibromyalgia Status: Chronic (12) Gram negative septicemia Status: Resolved (13) H/O migraine Status: Chronic (14) H/O renal calculi Status: Chronic (15) H/O urinary tract infection Status: Chronic (16) Head injury Status: Resolved (17) History of low back pain Status: Chronic (18) Hypothyroidism Status: Chronic (19) Migraine Unspecified W/O Intractable Migraine Status: Chronic (20) Pancreatitis Status: Chronic (21) Pyelonephritis Status: Resolved (22) UTI (urinary tract infection) Status: Resolved Surgical Problems: (1) S/P cholecystectomy Status: Resolved Current/Historical Medications Scheduled Cyanocobalamin (Vitamin B-12), 1,000 MCG PO QAM Cyclobenzaprine Hcl (Flexeril), 10 MG PO HS Cyclobenzaprine Hcl (Flexeril), 5 MG PO QAM Dicyclomine HCl (Dicyclomine HCl), 20 MG PO BID Docusate Sodium (Docusate Sodium), 100 MG PO QAM Ferrous Sulfate (Ferrous Sulfate), 325 MG PO QDB Fluticasone Propionate (Inhala (Flovent Diskus), 1 PUFF INH BID Gabapentin (Gabapentin), 600 MG PO TID Hydroxyzine Pamoate (Vistaril), 75 MG PO HS Lamotrigine (Lamictal), 200 MG PO AMPM Levothyroxine Sodium (Levothyroxine Sodium), 50 MCG PO QAM Loratadine (Claritin), 10 MG PO QAM Meloxicam (Mobic), 15 MG PO DAILY Norethin Acet & Estrad-Fe (Gildess Fe ), 1 TAB PO QAM Ondasetron Odt (Zofran Odt), 4 MG SL Q6H Pantoprazole (Pantoprazole Sodium), 40 MG PO QAM Prazosin Hcl (Prazosin), 4 MG PO HS Topiramate (Topamax), 200 MG PO BID Venlafaxine Hcl (Effexor Extended Rel), 150 MG PO QAM Scheduled PRN Albuterol Sulfate (Proair Respiclick), 2-4 PUFFS INH Q4H PRN for Cough/ Shortness Of Breath Epinephrine (Epipen), 0.3 MG IM UD PRN for ALLERGIC REACTION Fluticasone Propionate (Fluticasone Propionate), 2 SPRAYS JERRY QAM PRN for Nasal Congestion Mupirocin 2% (Bactroban 2%), 1 APPLN TOP UD PRN for Skin Impairment Rizatriptan Benzoate (Rizatriptan Benzoate), 10 MG PO UD PRN for Migraine Allergies Coded Allergies: BEE STING (Verified Allergy, Severe, ANAPHYLAXIS, 05/05/17) Morphine (Verified Adverse Reaction, Intermediate, HALLUCINATIONS, 05/05/17 ) Vital Signs Date Time Temp Pulse Resp B/P (MAP) Pulse Ox O2 Delivery O2 Flow Rate FiO2 07/03/17 18:00 76 16 142/76 98 07/03/17 17:10 80 16 146/86 96 Room Air 07/03/17 15:18 84 16 150/94 97 Room Air 07/03/17 13:54 36.9 88 18 165/82 96 Room Air Laboratory Results 07/03/17 14:25 Red Blood Count 4.32, Mean Corpuscular Volume 89.6, Mean Corpuscular Hemoglobin 30.6, Mean Corpuscular Hemoglobin Concent 34.1, Mean Platelet Volume 8.7, Neutrophils (%) (Auto) 69.6, Lymphocytes (%) (Auto) 22.1, Monocytes (%) (Auto) 5.0, Eosinophils (%) (Auto) 2.2, Basophils (%) (Auto) 0.2, Neutrophils # (Auto) 9.67, Lymphocytes # (Auto) 3.07, Monocytes # (Auto) 0.70, Eosinophils # (Auto) 0.31, Basophils # (Auto) 0.03 07/03/17 14:25 Test 07/03/17 14:20 07/03/17 14:25 Urine Color DK YELLOW Urine Appearance CLOUDY (CLEAR) Urine pH 7.5 (4.5-7.5) Urine Specific [place] 1.023 (1.000-1.030) Urine Protein NEG (NEG) Urine Glucose (UA) NEG (NEG) Urine Ketones TRACE (NEG) Urine Occult Blood NEG (NEG) Urine Nitrite NEG (NEG) Urine Bilirubin NEG (NEG) Urine Urobilinogen NEG (NEG) Urine Leukocyte Esterase MODERATE (NEG) Urine WBC (Auto) 10-30 /hpf (0-5) Urine RBC (Auto) 0-4 /hpf (0-4) Urine Hyaline Casts (Auto) 1-5 /lpf (0-5) Urine Epithelial Cells (Auto) >30 /lpf (0-5) Urine Bacteria (Auto) 1+ (NEG) Urine Test NEG (NEG) White Blood Count 13.91 K/uL (4.8-10.8) Red Blood Count 4.32 M/uL (4.2-5.4) Hemoglobin 13.2 g/dL (12.0-16.0) Hematocrit 38.7 % (37-47) Mean Corpuscular Volume 89.6 fL (80-100) Mean Corpuscular Hemoglobin 30.6 pg (25-34) Mean Corpuscular Hemoglobin Concent 34.1 g/dl (32-36) Platelet Count 370 K/uL (130-400) Mean Platelet Volume 8.7 fL (7.4-10.4) Neutrophils (%) (Auto) 69.6 % Lymphocytes (%) (Auto) 22.1 % Monocytes (%) (Auto) 5.0 % Eosinophils (%) (Auto) 2.2 % Basophils (%) (Auto) 0.2 % Neutrophils # (Auto) 9.67 K/uL (1.4-6.5) Lymphocytes # (Auto) 3.07 K/uL (1.2-3.4) Monocytes # (Auto) 0.70 K/uL (0.11-0.59) Eosinophils # (Auto) 0.31 K/uL (0-0.5) Basophils # (Auto) 0.03 K/uL (0-0.2) RDW Standard Deviation 44.2 fL (36.4-46.3) RDW Coefficient of Variation 13.5 % (11.5-14.5) Immature Granulocyte % (Auto) 0.9 % Immature Granulocyte # (Auto) 0.13 K/uL (0.00-0.02) Anion Gap 8.0 mmol/L (3-11) Est Creatinine Clear Calc Drug Dose 101.3 ml/min Estimated GFR () 102.4 Estimated GFR (Non- 88.3 BUN/Creatinine Ratio 17.6 (10-20) Calcium Level 8.8 mg/dl (8.5-10.1) Total Bilirubin 0.6 mg/dl (0.2-1) Direct Bilirubin 0.2 mg/dl (0-0.2) Aspartate Amino Transf (AST/SGOT) 11 U/L (15-37) Alanine Aminotransferase (ALT/SGPT) 19 U/L (12-78) Alkaline Phosphatase 43 U/L (45-117) Total Protein 7.6 gm/dl (6.4-8.2) Albumin 3.4 gm/dl (3.4-5.0) Lipase 110 U/L (73-393) Medications Administered Medications (Trade) Dose Ordered Sig/Shelli Route Start Time Stop Time Status Last Admin Dose Admin Sodium Chloride 1,000 ml @ 999 mls/hr Q1H1M STAT IV 07/03/17 14:09 07/03/17 15:09 DC 07/03/17 14:36 999 MLS/HR Ondansetron HCl (Zofran Inj) 4 mg NOW STAT IV 07/03/17 14:09 07/03/17 14:13 DC 07/03/17 14:36 4 MG Ketorolac Tromethamine (Toradol Inj) 15 mg NOW STAT IV 07/03/17 16:53 07/03/17 16:57 DC 07/03/17 17:08 15 MG Departure Information Impression Primary Impression: Right lower quadrant abdominal pain Dispostion Home / Self-Care Condition GOOD Prescriptions Ondasetron Odt (ZOFRAN ODT) 4 Mg Tab 4 MG SL Q6H for Nausea, #6 TAB Prov: Tiffanie ValadezBERNARDINO Sened 07/03/17 Referrals Dennis Khan M.D. (PCP) Patient Instructions ED Abdominal Pain Unkn Cause, ED Constipation, My [facility] Additional Instructions You have been treated in the Emergency Department your abdominal pain. Laboratory results and imaging studies have ruled out any emergent causes for your symptoms which would warrant admission or surgery. You may take regular strength (325mg/tab) Tylenol (acetaminophen) 2 tabs every 4 -6 hours as needed for pain. Do not exceed 10 tablets in a 24 hour period. Avoid taking more than 3000 mg of Tylenol per day. This includes any other sources of acetaminophen you may take on a regular basis. You may also try applying a heating pad to your abdomen for comfort. Drink plenty of fluids to stay well hydrated. Please follow-up with your Primary Care Provider in the next few days. Return to the emergency department for severe worsening abdominal or back pain, worsening nausea/vomiting, vomiting blood, blood in your stool or urine, fevers > 101.5, severe dizziness or passing out, or any other concerns. Work Instructions Return To Work: 2 days
[2017-07-03] MEDS ORDERED: ONDANSETRON INJ 2 MG/ML 2 ML VIAL IV STA (14:09)
[2017-07-03] MEDS ORDERED: SODIUM CHLORIDE 0.9% 1000ML 1,000 ML IV STA (14:09)
[2017-07-03] MEDS ORDERED: OPTIRAY 320 IV PRN (14:15)
[2017-07-03] MEDS ORDERED: HYDR50CA2 PO (14:28)
[2017-07-03 14:44] LABS: BASO % 0.2 %; BASO ABS # 0.03 K/uL (0-0.2); EOS % 2.2 %; EOS ABS # 0.31 K/uL (0-0.5); HEMATOCRIT 38.7 % (37-47); HEMOGLOBIN 13.2 g/dL (12.0-16.0); IG# 0.13 K/uL (0.00-0.02); LYMPH % 22.1 %; LYMPH ABS # 3.07 K/uL (1.2-3.4); MEAN CELL VOLUME 89.6 fL (80-100); MEAN CORPUSCULAR HEMOGLOBIN 30.6 pg (25-34); MEAN CORPUSCULAR HGB CONC 34.1 g/dl (32-36); MEAN PLATELET VOLUME 8.7 fL (7.4-10.4); NEUT % 69.6 %; NEUT ABS # 9.67 K/uL (1.4-6.5); PLATELET COUNT 370 K/uL (130-400); RED CELL DISTRIBUTION WIDTH CV 13.5 % (11.5-14.5); RED CELL DISTRIBUTION WIDTH SD 44.2 fL (36.4-46.3); WHITE BLOOD COUNT 13.91 K/uL (4.8-10.8)
[2017-07-03 15:02] LABS: ALBUMIN 3.4 gm/dl (3.4-5.0); CALCIUM 8.8 mg/dl (8.5-10.1); CREATININE 0.81 mg/dl (0.60-1.20); POTASSIUM 3.5 mmol/L (3.5-5.1)
[2017-07-03 15:04] LABS: TOTAL PROTEIN 7.6 gm/dl (6.4-8.2)
--- NOTE | 2017-07-03 15:15 | DIAGNOSTIC IMAGING REPORT ---
APPENDIX ULTRASOUND HISTORY: Right lower quadrant abdominal pain. COMPARISON: Abdomen and pelvis CT 05/05/2017. FINDINGS: Transabdominal scanning of the right lower quadrant was performed. The appendix was not identified. There are no fluid collections or masses within the right lower quadrant. Lobulated hypoechoic area within the right lower quadrant favors a bowel loop. This will be better appreciated on the same day abdomen and pelvis CT. IMPRESSION: The appendix was not identified. Electronically signed by: Adair Bennett M.D. 07/03/2017 3:14 PM Dictated Date/Time: 07/03/2017 3:10 PM
--- NOTE | 2017-07-03 16:49 | DIAGNOSTIC IMAGING REPORT ---
ABDOMEN AND PELVIS CT WITH IV AND ORAL CONTRAST CT DOSE: 1112.54 mGy.cm HISTORY: Acute generalized abdominal pain ABDOMINAL PAIN/GI TECHNIQUE: Multiaxial CT images of the abdomen and pelvis were performed following the use of intravenous and oral contrast. A dose lowering technique was utilized adhering to the principles of ALARA. COMPARISON STUDY: Ultrasound of the abdomen 07/03/2017, CT 05/05/2017 FINDINGS: Minimal dependent subsegmental bibasilar atelectasis with trace trace bilateral pleural effusions. There is no pneumatosis or pneumoperitoneum identified. Imaged inferior cardiac chambers are unremarkable. Prior cholecystectomy. The liver, pancreas and right adrenal gland are unremarkable. Indeterminate 8 mm soft tissue attenuating lesion of the medial limb left adrenal gland, unchanged. 6 mm low attenuating lesion of the mid spleen is stable suggesting benign etiology. Low attenuating lesions of the kidneys bilaterally redemonstrated measuring up to 1.5 cm on the right suggesting renal cysts. There is no renal calculi or obstructive uropathy. Cortical lobulations involving the kidneys bilaterally. The ureters and partially decompressed urinary bladder are unremarkable. Follicular changes are seen within the bilateral ovaries. Uterus is unremarkable. No aortic aneurysm or pathologic adenopathy. There is no bowel obstruction or focal bowel wall thickening. There is moderate volume of formed stool involving the transverse colon. The appendix appears normal within the abdominal right lower quadrant. Fat filled periumbilical hernia is noted, diastases 1.7 cm. Bones appear intact. IMPRESSION: 1. No acute intra-abdominal or intrapelvic abnormality identified. Normal appendix. 2. No bowel obstruction or focal bowel wall thickening. 3. Mild dependent subsegmental bibasilar atelectasis with trace bilateral pleural effusions. 4. Small fat filled periumbilical hernia. Electronically signed by: Zachary Rose M.D. 07/03/2017 4:48 PM Dictated Date/Time: 07/03/2017 4:40 PM
[2017-07-03] MEDS ORDERED: KETOROLAC TROMETHAMINE 30 MG/ML VIAL IV STA (16:53)
--- NOTE | 2017-07-03 16:59 | EMERGENCY ROOM VISIT NOTE ---
ED Visit Note First contact with patient: 13:53 I have personally evaluated this patient examined her and reviewed the pertinent labs and data. I have discussed the case with Tiffanie Valadez NP and agree with the plan. Please refer to the [employer] note. This patient comes in as described above. She sent over from her primary care physician's office to evaluate for possible appendicitis she has had lower abdominal pain and potentially low-grade fever. She is afebrile here and has stable vital signs. I do know her well from previous visits and she does not have chronic abdominal pain. On my exam,she appears nontoxic and non-lethargic and is resting comfortably. She has no peritonitis but is moderately tender in the right lower quadrant she has had several CAT scans in the past. We tried not to do a CAT scan however her white count was elevated and her ultrasound of her abdomen was unrevealing. The patient says that this feels different than her chronic pain and in light of the elevated white count and the right lower quadrant pain we did a CAT scan with p.o. and IV contrast there is no evidence of appendicitis. She will be discharged home and will return if increasing pain or any new problems or concerns.
[2017-07-03 18:00] VITALS: BP 142/76; PULSE 76; O2SAT 98
[2017-07-03] MEDS ORDERED: ONDA4TAB10 SL (18:22)
[2017-07-04] MEDS ORDERED: SULF800T23 PO (14:59)
== END 2017-07-03 18:01 | disposition home or self-care (01) ==
LOC: EDBD 13:49 → C.EDB 13:52
DX: R10.31 Right lower quadrant pain (principal); F41.9 Anxiety disorder, unspecified; J45.909 Unspecified asthma, uncomplicated; F31.9 Bipolar disorder, unspecified; M79.7 Fibromyalgia; Z79.899 Other long term (current) drug therapy; F31.81 Bipolar II disorder; Z87.442 Personal history of urinary calculi; Z91.030 Bee allergy status

== ENCOUNTER 2017-07-04 14:20 | Emergency (ER) | payer OTHER ==
[~2017-07-04] VITALS: Ht 162.6 cm; Wt 97.0 kg
[~2017-07-04 14:20] MED LIST changes: +HYDR50CA2 PO; +ONDA4TAB10 SL
[2017-07-04 14:26] VITALS: TEMP 37.1; Ht 162.6 cm; Wt 97.0 kg
[2017-07-04] MEDS ORDERED: SULF800T23 PO (14:59)
[2017-07-04 15:27] VITALS: BP 116/76; PULSE 75; O2SAT 98
--- NOTE | 2017-07-04 16:27 | EMERGENCY ROOM VISIT NOTE ---
History Report prepared by Antonieta: Ernestina Rose Under the Supervision of: Dr. Reynaldo Remy M.D. First contact with patient: 14:46 Chief Complaint: ABDOMINAL PAIN Stated Complaint: ABD PAIN Nursing Triage Summary: pt presents to room b03b via als. pt reports right lower abd pain. pt seen in ed yesterday for same. pt reports "i think the pain is worse after eating." pt also reports "once time today after i went to the bathroom there was a little bit of blood." History of Present Illness The patient is a 42 year old female who presents to the Emergency Room with complaints of persistent right side abdominal pain that began three days ago. She describes the pain as sharp. She was seen yesterday in the ED for similar symptoms. She reports it felt worse after eating. She notes today she had blood in her urine. She also notes the development of burning with urination. She notes pain with wiping after urinating. She denies being sexually active. She denies any abnormal vaginal discharge.She denies any history of PID or pelvic infection. She notes that she has had similar right-sided abdominal pain for years. Source of History: patient Onset: three days ago Position: abdomen (right side) Quality: sharp Timing: other (persistent) Modifying Factors (Worsening): eating Associated Symptoms: + urinary symptoms (blood in urine and burning sensation) Note: She notes pain with vaginally wiping. She denies any abnormal vaginal discharge. Review of Systems See HPI for pertinent positives & negatives. A total of 10 systems reviewed and were otherwise negative. Past Medical & Surgical Medical Problems: (1) Acute bilateral low back pain (2) Anxiety (3) Anxiety State Nos (4) Asthma (5) Asthma, Unspecified (6) Bipolar II disorder (7) Chest pain (8) Chest pain, atypical (9) E. coli septicemia (10) Fall (11) Fibromyalgia (12) Gram negative septicemia (13) H/O migraine (14) H/O renal calculi (15) H/O urinary tract infection (16) Head injury (17) History of low back pain (18) Hypothyroidism (19) Migraine Unspecified W/O Intractable Migraine (20) Pancreatitis (21) Pyelonephritis (22) UTI (urinary tract infection) Surgical Problems: (1) S/P cholecystectomy Family History Diabetes mellitus FH: cancer FH: heart disease FH: lung disease FHx: gallbladder disease Kidney disease or stones Social History Smoking Status: Never Smoker Alcohol Use: none Drug Use: none Marital Status: single Housing Status: lives with family Occupation Status: disabled Current/Historical Medications Scheduled Cyanocobalamin (Vitamin B-12), 1,000 MCG PO QAM Cyclobenzaprine Hcl (Flexeril), 10 MG PO HS Cyclobenzaprine Hcl (Flexeril), 5 MG PO QAM Dicyclomine HCl (Dicyclomine HCl), 20 MG PO BID Docusate Sodium (Docusate Sodium), 100 MG PO QAM Ferrous Sulfate (Ferrous Sulfate), 325 MG PO QDB Fluticasone Propionate (Inhala (Flovent Diskus), 1 PUFF INH BID Gabapentin (Gabapentin), 600 MG PO TID Hydroxyzine Pamoate (Vistaril), 75 MG PO HS Lamotrigine (Lamictal), 200 MG PO DAILY Levothyroxine Sodium (Levothyroxine Sodium), 50 MCG PO QAM Loratadine (Claritin), 10 MG PO QAM Meloxicam (Mobic), 15 MG PO DAILY Norethin Acet & Estrad-Fe (Gildess Fe ), 1 TAB PO QAM Ondasetron Odt (Zofran Odt), 4 MG SL Q6H Pantoprazole (Pantoprazole Sodium), 40 MG PO QAM Prazosin Hcl (Prazosin), 4 MG PO HS Sulfa/Trimethoprim (Bactrim Ds 800MG/160MG), 1 TAB PO BID Topiramate (Topamax), 200 MG PO BID Venlafaxine Hcl (Effexor Extended Rel), 150 MG PO QAM Scheduled PRN Albuterol Sulfate (Proair Respiclick), 2 PUFFS INH Q4H PRN for Cough/Shortness Of Breath Epinephrine (Epipen), 0.3 MG IM UD PRN for ALLERGIC REACTION Fluticasone Propionate (Fluticasone Propionate), 2 SPRAYS JERRY QAM PRN for Nasal Congestion Mupirocin 2% (Bactroban 2%), 1 APPLN TOP UD PRN for Skin Impairment Rizatriptan Benzoate (Rizatriptan Benzoate), 10 MG PO UD PRN for Migraine Allergies Coded Allergies: BEE STING (Verified Allergy, Severe, ANAPHYLAXIS, 05/05/17) Morphine (Verified Adverse Reaction, Intermediate, HALLUCINATIONS, 05/05/17 ) Physical Exam Vital Signs Date Time Temp Pulse Resp B/P (MAP) Pulse Ox O2 Delivery O2 Flow Rate FiO2 07/04/17 15:27 75 16 116/76 98 07/04/17 14:26 37.1 100 18 150/96 96 Room Air Physical Exam Constitutional: Vital signs reviewed. Eyes: Pupils are equal round reactive to light. Conjunctiva are noninjected. ENT: Pharynx is clear without erythema or exudate. Mucous membranes are moist. Neck supple without meningeal signs. Respiratory: Clear to auscultation bilaterally. Breath sounds are equal bilaterally. Cardiovascular: Regular rate and rhythm. No rubs or gallops. GI: Soft, nondistended and nontender. Bowel sounds are present. Musculoskeletal: No peripheral edema. No CVA tenderness. Integumentary: No cyanosis. Neurological: The patient is awake and alert. No focal deficits. Psychiatric: Normal affect. Medical Decision & Procedures Laboratory Results Test 07/04/17 14:30 Urine Color DK YELLOW Urine Appearance TURBID (CLEAR) Urine pH 5.0 (4.5-7.5) Urine Specific [place] 1.029 (1.000-1.030) Urine Protein TRACE (NEG) Urine Glucose (UA) NEG (NEG) Urine Ketones TRACE (NEG) Urine Occult Blood 2+ (NEG) Urine Nitrite NEG (NEG) Urine Bilirubin NEG (NEG) Urine Urobilinogen NEG (NEG) Urine Leukocyte Esterase MODERATE (NEG) Urine WBC (Auto) >30 /hpf (0-5) Urine RBC (Auto) 5-10 /hpf (0-4) Urine Hyaline Casts (Auto) 5-10 /lpf (0-5) Urine Epithelial Cells (Auto) >30 /lpf (0-5) Urine Bacteria (Auto) 2+ (NEG) Urine Pathogenic Casts /lpf (0) Urine Test NEG (NEG) Laboratory results as reviewed by me. ED Course 1449: The patient was evaluated in room B3B. A complete history and physical exam was performed. I discussed the results and treatment plan with the patient. I answered all pertaining questions that she had. She expressed understanding and verbalized agreement. The patient will be discharged home. Medical Decision This is a 42-year-old female presents to the right abdominal pain and urinary symptoms. Differential diagnoses considered include UTI, interstitial cystitis , pyelonephritis, chronic pain syndrome, PID. I did perform a limited focused review of portions of the patient's old chart on the electronic medical record. The patient was seen here in the ED yesterday for RLQ pain. She had a CT A/P, which showed no acute process and normal appendix. She has been here frequently for right sided abdominal pain and has had multiple CT scans. I did evaluate the patient as noted above. I did personally review the patient' s urine analysis as described above. She does have evidence of infection. Urine test is negative. Urine culture was sent. She states the abdominal pain has been there for 3 years and she also has had chronic exacerbations of the similar pain for years. She just had a CT scan yesterday so I did not feel any further workup was indicated for this. Pelvic examination was deferred after discussion with the patient. She states she is not sexually active or worried about STI's. She was therefore discharged with a prescription for Bactrim. She was advised to follow-up with her doctor. Medication Reconcilliation Current Medication List: was personally reviewed by me Blood Pressure Screening Patient's blood pressure: Elevated blood pressure Blood pressure disposition: Referred to PCP Impression Primary Impression: UTI (urinary tract infection) Additional Impression: RLQ abdominal pain Scribe Attestation The scribe's documentation has been prepared under my direct and personally reviewed by me in its entirety. I confirm that the note above accurately reflects all work, treatment, procedures, and medical decision making performed by me. Departure Information Dispostion Home / Self-Care Prescriptions Sulfa/Trimethoprim (Bactrim Ds 800MG/160MG) Tab 1 TAB PO BID, #14 TAB Prov: Reynaldo Remy M.D. 07/04/17 Referrals Dennis Khan M.D. (PCP) Forms Call Back Authorization, HOME CARE DOCUMENTATION FORM, IMPORTANT VISIT INFORMATION Patient Instructions My [facility] Additional Instructions You have been examined and treated today on an emergency basis only. This is not a substitute for, or an effort to provide, complete comprehensive medical care. It is impossible to recognize and treat all injuries or illnesses in a single emergency department visit. It is therefore important that you follow up closely with your physician. Call as soon as possible for an appointment. Return for worsening symptoms or if you develop fever, vomiting, or any other concerning symptoms. Problem Qualifiers Primary Impression: UTI (urinary tract infection) Urinary tract infection type: acute cystitis Hematuria presence: with hematuria Qualified Codes: N30.01 - Acute cystitis with hematuria
== END 2017-07-04 15:28 | disposition home or self-care (01) ==
LOC: EDBD 14:20 → C.EDB 14:21
DX: N30.01 Acute cystitis with hematuria (principal); R10.31 Right lower quadrant pain; F41.9 Anxiety disorder, unspecified; J45.909 Unspecified asthma, uncomplicated; F31.9 Bipolar disorder, unspecified; M79.7 Fibromyalgia; G43.909 Migraine, unspecified, not intractable, without status migrainosus; Z87.440 Personal history of urinary (tract) infections; E03.9 Hypothyroidism, unspecified; K86.1 Other chronic pancreatitis; Z83.3 Family history of diabetes mellitus; Z80.9 Family history of malignant neoplasm, unspecified; Z83.6 Family history of other diseases of the respiratory system; Z83.79 Family history of other diseases of the digestive system; Z84.1 Family history of disorders of kidney and ureter; Z79.899 Other long term (current) drug therapy; Z91.030 Bee allergy status; Z88.5 Allergy status to narcotic agent

== ENCOUNTER 2017-07-22 16:52 | Emergency (ER) | payer OTHER ==
[~2017-07-22] VITALS: Ht 162.6 cm; Wt 97.0 kg
[~2017-07-22 16:52] MED LIST changes: -ALBU18002 INH; -CLR10 PO; -CYAN10005 PO; -EPP3/2 IM; -FERR1TAB62 PO; -FLNIN/ NAE; -HYDR-3124 PO; -LEVO50TA6 PO; -MELO-84 PO; -PANT40TA2 PO; +SULF800T23 PO
[2017-07-22 17:08] VITALS: TEMP 36.9; Ht 162.6 cm; Wt 97.0 kg
[2017-07-22] MEDS ORDERED: CYAN10005 PO (17:14)
[2017-07-22] MEDS ORDERED: CYCL10TA6 PO (17:14)
[2017-07-22 17:25] LABS: BASO % 0.6 %; BASO ABS # 0.05 K/uL (0-0.2); EOS % 1.7 %; EOS ABS # 0.15 K/uL (0-0.5); HEMATOCRIT 36.9 % (37-47); HEMOGLOBIN 12.9 g/dL (12.0-16.0); IG# 0.07 K/uL (0.00-0.02); LYMPH % 31.3 %; LYMPH ABS # 2.81 K/uL (1.2-3.4); MEAN CELL VOLUME 87.9 fL (80-100); MEAN CORPUSCULAR HEMOGLOBIN 30.7 pg (25-34); MEAN PLATELET VOLUME 8.5 fL (7.4-10.4); MONO ABS # 0.54 K/uL (0.11-0.59); NEUT % 59.6 %; NEUT ABS # 5.36 K/uL (1.4-6.5); PLATELET COUNT 333 K/uL (130-400); RED CELL DISTRIBUTION WIDTH CV 13.3 % (11.5-14.5); RED CELL DISTRIBUTION WIDTH SD 42.4 fL (36.4-46.3); WHITE BLOOD COUNT 8.98 K/uL (4.8-10.8)
[2017-07-22 17:43] LABS: ALBUMIN 3.5 gm/dl (3.4-5.0); CALCIUM 8.5 mg/dl (8.5-10.1); CREATININE 0.81 mg/dl (0.60-1.20); POTASSIUM 3.5 mmol/L (3.5-5.1)
[2017-07-22 17:45] LABS: TOTAL PROTEIN 7.2 gm/dl (6.4-8.2)
[2017-07-22] MEDS ORDERED: ALBU18002 INH (18:06)
[2017-07-22] MEDS ORDERED: FERR1TAB62 PO (18:06)
[2017-07-22] MEDS ORDERED: MELO-84 PO (18:30)
[2017-07-22] MEDS ORDERED: PANT40TA2 PO (20:13)
[2017-07-22] MEDS ORDERED: FLNIN/ NAE (20:13)
[2017-07-22] MEDS ORDERED: LEVO50TA6 PO (20:13)
[2017-07-22] MEDS ORDERED: CLR10 PO (20:17)
--- NOTE | 2017-07-22 20:36 | EMERGENCY ROOM VISIT NOTE ---
History Report prepared by Antonieta: Fidencio Michelle Under the Supervision of: Dr. Ezequiel Alvarenga M.D. First contact with patient: 20:16 Chief Complaint: LEG PAIN,LEG INJURY Stated Complaint: NUMBNESS, TINGLE IN LEGS, CAN NOT MOVE THEM History of Present Illness The patient is a 42 year old female who presents to the Emergency Room with back pain and numbness and tingling in her legs below her knees bilaterally, beginning earlier today. The patient states she was at her chiropractor today where her back was adjusted. She reports hours afterwards her symptoms began. The patient denies fever, intravenous drug abuse, dysuria, urinary incontinence , urinary retention, and blood in her stool. Source of History: patient Onset: earlier today Position: leg (bilateral, below her knees) Quality: tingling, numbness Timing: constant Associated Symptoms: + back pain (lower), No urinary symptoms Note: Associated symptoms: inability to walk Denies: urinary incontinence, blood in stool Review of Systems See HPI for pertinent positives and negatives. A total of ten systems were reviewed and were otherwise negative. Past Medical & Surgical Medical Problems: (1) Acute bilateral low back pain (2) Anxiety (3) Anxiety State Nos (4) Asthma (5) Asthma, Unspecified (6) Bipolar II disorder (7) Chest pain (8) Chest pain, atypical (9) E. coli septicemia (10) Fall (11) Fibromyalgia (12) Gram negative septicemia (13) H/O migraine (14) H/O renal calculi (15) H/O urinary tract infection (16) Head injury (17) History of low back pain (18) Hypothyroidism (19) Migraine Unspecified W/O Intractable Migraine (20) Pancreatitis (21) Pyelonephritis (22) UTI (urinary tract infection) Surgical Problems: (1) S/P cholecystectomy Family History Diabetes mellitus FH: cancer FH: heart disease FH: lung disease FHx: gallbladder disease Kidney disease or stones Social History Smoking Status: Never Smoker Alcohol Use: none Drug Use: none Marital Status: single Housing Status: lives with family Occupation Status: disabled Current/Historical Medications Scheduled Control Pills ( Control Pills), 1 TAB PO QAM Cyanocobalamin (Vitamin B-12), 1,000 MCG PO QAM Cyclobenzaprine Hcl (Flexeril), 10 MG PO HS Cyclobenzaprine Hcl (Flexeril), 5 MG PO QAM Cyclobenzaprine Hcl (Flexeril), 5 MG PO TID Dicyclomine HCl (Dicyclomine HCl), 20 MG PO BID Docusate Sodium (Docusate Sodium), 100 MG PO QAM Ferrous Sulfate (Ferrous Sulfate), 325 MG PO QDB Fluticasone Propionate (Inhala (Flovent Diskus), 1 PUFF INH BID Gabapentin (Gabapentin), 600 MG PO TID Hydroxyzine Pamoate (Vistaril), 25 MG PO HS Hydroxyzine Pamoate (Vistaril), 50 MG PO HS Lamotrigine (Lamictal), 200 MG PO DAILY Levothyroxine Sodium (Levothyroxine Sodium), 50 MCG PO QAM Loratadine (Claritin), 10 MG PO QAM Meloxicam (Mobic), 15 MG PO DAILY Ondasetron Odt (Zofran Odt), 4 MG SL Q6H Pantoprazole (Pantoprazole Sodium), 40 MG PO QAM Prazosin Hcl (Minipress), 4 MG PO HS Topiramate (Topamax), 200 MG PO BID Venlafaxine Hcl (Effexor Xr), 150 MG PO QAM Scheduled PRN Albuterol Sulfate (Proair Respiclick), 2 PUFFS INH Q4H PRN for Cough/Shortness Of Breath Epinephrine (Epipen), 0.3 MG IM UD PRN for ALLERGIC REACTION Fluticasone Propionate (Fluticasone Propionate), 2 SPRAYS JERRY QAM PRN for Nasal Congestion Ibuprofen Tab (Motrin), 800 MG PO Q8H PRN for Pain Ipratropium-Albuterol (Duoneb), 1 TREATMENT INH Q4H PRN for SOB/Wheezing Mupirocin 2% (Bactroban 2%), 1 APPLN TOP UD PRN for Skin Impairment Rizatriptan Benzoate (Rizatriptan Benzoate), 10 MG PO UD PRN for Migraine Allergies Coded Allergies: BEE STING (Verified Allergy, Severe, ANAPHYLAXIS, 05/05/17) Morphine (Verified Adverse Reaction, Intermediate, HALLUCINATIONS, 05/05/17 ) Physical Exam Vital Signs Date Time Temp Pulse Resp B/P (MAP) Pulse Ox O2 Delivery O2 Flow Rate FiO2 07/22/17 23:25 77 18 128/80 99 07/22/17 22:42 79 18 148/88 98 Room Air 07/22/17 21:34 80 18 144/85 97 Room Air 07/22/17 17:08 36.9 98 18 155/83 98 Room Air Physical Exam Physical Exam GENERAL: She is oriented to person, place, and time. She appears well- developed and well-nourished. She does not appear distressed. ____ HENT: Exam performed. Head: Normocephalic and atraumatic. Right Ear: External ear normal. No mastoid tenderness. Left Ear: External ear normal. No mastoid tenderness. Mouth/Throat: The oropharynx is clear and moist. No trismus in the jaw. No dental abscesses or uvula swelling. No oropharyngeal exudate or tonsillar abscesses. ____ EYES: Conjunctivae and EOM are normal. Pupils are equal, round, and reactive to light. Right eye exhibits no discharge. Left eye exhibits no discharge. No scleral icterus. ____ NECK: Normal range of motion. Neck supple. No JVD present. No spinous process tenderness present. No carotid bruit present. No rigidity. No tracheal deviation and normal range of motion present. No Brudzinski's sign and no Kernig 's sign noted. ____ CV: Normal rate, regular rhythm, normal heart sounds and intact distal pulses. There is no peripheral edema. Palpable radial pulses bue. ____ PULM/CHEST: Effort normal and breath sounds normal. No respiratory distress. No stridor. She has no wheezes. She has no rales. Chest Wall: She exhibits no tenderness. ____ ABD: The abdomen is soft. Bowel sounds are normal. She has no distension. No mass is present. There is no tenderness. There is no rebound, no guarding, no Hankins's sign and no tenderness at McBurney's point. Rovsig negative MUSC/SKEL: Normal range of motion. There is no peripheral edema or deformity. No C-spine or T-spine tenderness upon palpation. Tenderness to the lumbar spine and bilateral lumbar paraspinal muscles. RECTAL (performed in the presence of a female nurse): Good rectal tone. LYMPH: No cervical adenopathy. ____ NEURO: She is alert and oriented to person, place, and time. She has normal strength bilateral lower extremities. No cranial nerve deficit or sensory deficit. Coordination and gait normal. GCS eye subscore is 4. GCS verbal subscore is 5. GCS motor subscore is 6. Cerebellar tests wnl. No saddle anesthesia or paresthesia.____ SKIN: Skin is warm and dry. She is not diaphoretic. ____ PSYCH: She has a normal mood and affect. Her behavior is normal. Judgment and thought content normal. ____ Medical Decision & Procedures ER Provider Diagnostic Interpretation: X-ray: Per my interpretation, radiologist review. LUMBAR SPINE 5 VIEWS CLINICAL HISTORY: Chronic low back pain. FINDINGS: 5 views of the lumbar spine are compared to study dated 05/06/2016 and correlated with abdominal CT dated 07/03/2017. The skeletal structures are well mineralized. There is no radiographic evidence of fracture or malalignment. Vertebral body height and alignment are maintained. Tiny anterior osteophytes are seen throughout. The transverse and spinous processes are intact. There is no evidence of spondylolysis. The intervertebral disc spaces are well-maintained. The visualized bony pelvis appears intact. There is a nonobstructed abdominal bowel gas pattern. Moderate constipation is observed. Cholecystectomy clips are identified in the right upper quadrant. IMPRESSION: No acute osseous abnormality is seen involving the lumbosacral spine. No significant change from prior studies. Electronically signed by: Meño Hendrickson M.D. 07/22/2017 10:12 PM Dictated Date/Time: 07/22/2017 10:11 PM Laboratory Results 07/22/17 17:13 Red Blood Count 4.20, Mean Corpuscular Volume 87.9, Mean Corpuscular Hemoglobin 30.7, Mean Corpuscular Hemoglobin Concent 35.0, Mean Platelet Volume 8.5, Neutrophils (%) (Auto) 59.6, Lymphocytes (%) (Auto) 31.3, Monocytes (%) (Auto) 6.0, Eosinophils (%) (Auto) 1.7, Basophils (%) (Auto) 0.6, Neutrophils # (Auto) 5.36, Lymphocytes # (Auto) 2.81, Monocytes # (Auto) 0.54, Eosinophils # (Auto) 0.15, Basophils # (Auto) 0.05 07/22/17 17:13 Test 07/22/17 17:13 07/22/17 21:00 07/22/17 22:40 White Blood Count 8.98 K/uL (4.8-10.8) Red Blood Count 4.20 M/uL (4.2-5.4) Hemoglobin 12.9 g/dL (12.0-16.0) Hematocrit 36.9 % (37-47) Mean Corpuscular Volume 87.9 fL (80-100) Mean Corpuscular Hemoglobin 30.7 pg (25-34) Mean Corpuscular Hemoglobin Concent 35.0 g/dl (32-36) Platelet Count 333 K/uL (130-400) Mean Platelet Volume 8.5 fL (7.4-10.4) Neutrophils (%) (Auto) 59.6 % Lymphocytes (%) (Auto) 31.3 % Monocytes (%) (Auto) 6.0 % Eosinophils (%) (Auto) 1.7 % Basophils (%) (Auto) 0.6 % Neutrophils # (Auto) 5.36 K/uL (1.4-6.5) Lymphocytes # (Auto) 2.81 K/uL (1.2-3.4) Monocytes # (Auto) 0.54 K/uL (0.11-0.59) Eosinophils # (Auto) 0.15 K/uL (0-0.5) Basophils # (Auto) 0.05 K/uL (0-0.2) RDW Standard Deviation 42.4 fL (36.4-46.3) RDW Coefficient of Variation 13.3 % (11.5-14.5) Immature Granulocyte % (Auto) 0.8 % Immature Granulocyte # (Auto) 0.07 K/uL (0.00-0.02) Anion Gap 10.0 mmol/L (3-11) Est Creatinine Clear Calc Drug Dose 100.2 ml/min Estimated GFR () 102.4 Estimated GFR (Non- 88.3 BUN/Creatinine Ratio 21.9 (10-20) Calcium Level 8.5 mg/dl (8.5-10.1) Total Bilirubin 0.3 mg/dl (0.2-1) Aspartate Amino Transf (AST/SGOT) 9 U/L (15-37) Alanine Aminotransferase (ALT/SGPT) 16 U/L (12-78) Alkaline Phosphatase 41 U/L (45-117) Total Protein 7.2 gm/dl (6.4-8.2) Albumin 3.5 gm/dl (3.4-5.0) Globulin 3.7 gm/dl (2.5-4.0) Albumin/Globulin Ratio 0.9 (0.9-2) Urine Color YELLOW Urine Appearance CLOUDY (CLEAR) Urine pH 6.5 (4.5-7.5) Urine Specific [place] 1.026 (1.000-1.030) Urine Protein NEG (NEG) Urine Glucose (UA) NEG (NEG) Urine Ketones NEG (NEG) Urine Occult Blood NEG (NEG) Urine Nitrite NEG (NEG) Urine Bilirubin NEG (NEG) Urine Urobilinogen NEG (NEG) Urine Leukocyte Esterase NEG (NEG) Urine WBC (Auto) 1-5 /hpf (0-5) Urine RBC (Auto) 0-4 /hpf (0-4) Urine Hyaline Casts (Auto) 0 /lpf (0-5) Urine Epithelial Cells (Auto) >30 /lpf (0-5) Urine Bacteria (Auto) NEG (NEG) Urine Test NEG (NEG) Laboratory results reviewed by me Medications Administered Medications (Trade) Dose Ordered Sig/Shelli Route Start Time Stop Time Status Last Admin Dose Admin Diazepam (Valium Inj) 2 mg NOW STAT IV 07/22/17 21:06 07/22/17 21:08 DC 07/22/17 21:06 2 MG Ketorolac Tromethamine (Toradol Inj) 15 mg NOW STAT IV 07/22/17 21:06 07/22/17 21:08 DC 07/22/17 21:36 15 MG ED Course 2033: The patient was evaluated in room C04. A complete history and physical exam was performed. EMR reviewed. Patient has had multiple emergency department visits, and in 2017 at 3 stat MRIs for rule out cord compression which were negative. Currently the patient has no red flags concerning for cord compression including no saddle anesthesia or paresthesia, good rectal tone , per the patient no urinary retention or incontinence. 2105: Ordered Toradol Inj 15mg IV, Diazepam 2mg IV 2153: Vital signs stable. Status post analgesia and muscle relaxer, patient reports feeling better. She is resting in the bed playing candy crush on her phone. Vitals are stable, labs and imaging are wnl. No physical exam findings concerning for acute cord impression including: no saddle anesthesia or paresthesia, good rectal tone, per the patient no urinary retention or incontinence. DISCHARGE - Plan of care discussed with patient and questions answered. The patient was given both verbal and printed discharge instructions. The patient verbalized understanding and ability to comply. The patient is to seek outpatient follow up as noted in the discharge instructions. The patient verbalized understanding and ability to comply. The patient is discharged in stable condition. The patient was instructed to return for worsening symptoms. Medical Decision 2033: The patient was evaluated in room C04. A complete history and physical exam was performed. EMR reviewed. Patient has had multiple emergency department visits, and in 2017 at 3 stat MRIs for rule out cord compression which were negative. Currently the patient has no red flags concerning for cord compression including no saddle anesthesia or paresthesia, good rectal tone , per the patient no urinary retention or incontinence. 2105: Ordered Toradol Inj 15mg IV, Diazepam 2mg IV 4: Vital signs stable. Status post analgesia and muscle relaxer, patient reports feeling better. She is resting in the bed playing candy crush on her phone. Vitals are stable, labs and imaging are wnl. No physical exam findings concerning for acute cord impression including: no saddle anesthesia or paresthesia, good rectal tone, per the patient no urinary retention or incontinence. DISCHARGE - Plan of care discussed with patient and questions answered. The patient was given both verbal and printed discharge instructions. The patient verbalized understanding and ability to comply. The patient is to seek outpatient follow up as noted in the discharge instructions. The patient verbalized understanding and ability to comply. The patient is discharged in stable condition. The patient was instructed to return for worsening symptoms. Medication Reconcilliation Current Medication List: was personally reviewed by me Blood Pressure Screening Patient's blood pressure: Normal blood pressure Blood pressure disposition: Did not require urgent referral Impression Primary Impression: Back pain Scribe Attestation The scribe's documentation has been prepared under my direction and personally reviewed by me in its entirety. I confirm that the note above accurately reflects all work, treatment, procedures, and medical decision making performed by me. The chart was completed utilizing [employer] Speech voice recognition software. Grammatical errors, random word insertions, pronoun errors, and incomplete sentences are an occasional consequence of this system due to software limitations, ambient noise, and hardware issues. Any formal questions or concerns about the content, text, or information contained within the body of this dictation should be directly addressed to the physician for clarification. Departure Information Dispostion Home / Self-Care Prescriptions Ibuprofen Tab (MOTRIN) 800 Mg Tab 800 MG PO Q8H Y for Pain, #30 TAB Prov: Ezequiel Alvarenga M.D. 07/22/17 Cyclobenzaprine Hcl (FLEXERIL) 5 Mg Tab 5 MG PO TID for 10 Days, #30 TAB PRN Prov: Ezequiel Alvarenga M.D. 07/22/17 Referrals Dennis Khan M.D. (PCP) Forms HOME CARE DOCUMENTATION FORM, IMPORTANT VISIT INFORMATION Patient Instructions ED Exercises Lumbar Muscles, Exercises Lower Back Rotation, My [facility] Additional Instructions Return to the emergency department immediately if you develop fever greater than 100.4, loose sensation between her legs, develop blood in urine, urinary incontinence, inability to urinate. Problem Qualifiers Primary Impression: Back pain Back pain location: low back pain Chronicity: chronic Back pain laterality : unspecified Sciatica presence: unspecified whether sciatica present Qualified Codes: M54.5 - Low back pain; G89.29 - Other chronic pain
[2017-07-22] MEDS ORDERED: HYDR25CA PO (20:52)
[2017-07-22] MEDS ORDERED: LAMO200T PO (20:52)
[2017-07-22] MEDS ORDERED: VENL150C PO (20:52)
[2017-07-22] MEDS ORDERED: PRAZ2CAP PO (20:52)
[2017-07-22] MEDS ORDERED: TOPI200T14 PO (20:52)
[2017-07-22] MEDS ORDERED: HYDR50CA PO (20:52)
[2017-07-22] MEDS ORDERED: IPRASOL4 INH (20:58)
[2017-07-22] MEDS ORDERED: BCPILLS PO (20:58)
[2017-07-22] MEDS ORDERED: DIAZEPAM INJ 5 MG/ML 2 ML CARP IV STA (21:06)
[2017-07-22] MEDS ORDERED: KETOROLAC TROMETHAMINE 30 MG/ML VIAL IV STA (21:06)
[2017-07-22] MEDS ORDERED: DIAZEPAM 5 MG/ML INJ 10ML VIAL ONE (21:31)
[2017-07-22] MEDS ORDERED: EPP3/2 IM (21:52)
--- NOTE | 2017-07-22 22:14 | DIAGNOSTIC IMAGING REPORT ---
LUMBAR SPINE 5 VIEWS CLINICAL HISTORY: Chronic low back pain. FINDINGS: 5 views of the lumbar spine are compared to study dated 05/06/2016 and correlated with abdominal CT dated 07/03/2017. The skeletal structures are well mineralized. There is no radiographic evidence of fracture or malalignment. Vertebral body height and alignment are maintained. Tiny anterior osteophytes are seen throughout. The transverse and spinous processes are intact. There is no evidence of spondylolysis. The intervertebral disc spaces are well-maintained. The visualized bony pelvis appears intact. There is a nonobstructed abdominal bowel gas pattern. Moderate constipation is observed. Cholecystectomy clips are identified in the right upper quadrant. IMPRESSION: No acute osseous abnormality is seen involving the lumbosacral spine. No significant change from prior studies. Electronically signed by: Meño Hendrickson M.D. 07/22/2017 10:12 PM Dictated Date/Time: 07/22/2017 10:11 PM
[2017-07-22] MEDS ORDERED: IBUP-1451 PO (23:19)
[2017-07-22] MEDS ORDERED: CYCL5TAB PO (23:19)
[2017-07-22 23:25] VITALS: BP 128/80; PULSE 77; O2SAT 99
== END 2017-07-22 23:26 | disposition home or self-care (01) ==
LOC: C.EDB 17:04 → C.EDC 23:26
DX: M54.5 Low back pain (principal); G89.29 Other chronic pain; J45.909 Unspecified asthma, uncomplicated; M79.7 Fibromyalgia; E03.9 Hypothyroidism, unspecified; G43.909 Migraine, unspecified, not intractable, without status migrainosus; F31.9 Bipolar disorder, unspecified; Z79.3 Long term (current) use of hormonal contraceptives; Z79.899 Other long term (current) drug therapy; Z91.030 Bee allergy status; Z88.5 Allergy status to narcotic agent

== ENCOUNTER 2017-08-01 14:18 | Emergency (ER) | payer OTHER ==
[~2017-08-01] VITALS: Ht 162.6 cm; Wt 100.4 kg
[~2017-08-01 14:18] MED LIST changes: -BCTCR/30 TOP; +CYCL5TAB PO; -DICY1TAB25 PO; -DOCU100C31 PO; -EFFSR150 PO; -FLUT1AER4 INH; -HYDR50CA2 PO; +IBUP-1451 PO; -LAMO200T35 PO; -NORE-3 PO; -NRN600 PO; -PRAZ2CAP2 PO; -RIZA1TAB7 PO; -SULF800T23 PO; -TOPI100T34 PO
[2017-08-01] MEDS ORDERED: BCTCR/30 TOP (14:30)
[2017-08-01] MEDS ORDERED: RIZA1TAB7 PO (14:30)
[2017-08-01 14:32] VITALS: TEMP 37.1; Ht 162.6 cm; Wt 100.4 kg
[2017-08-01] MEDS ORDERED: FLUT1AER4 INH (14:38)
--- NOTE | 2017-08-01 14:58 | EMERGENCY ROOM VISIT NOTE ---
History First contact with patient: 14:27 Chief Complaint: FALL Stated Complaint: FALL/HEAD PAIN History of Present Illness The patient is a 42 year old female with hx of migraine headaches, asthma, degenerative disk disease, pancreatitis, kidney stones, bipolar II, anxiety and PTSD who presents to the Emergency Room with complaints of headache s/p fall this PM. Pt reports being at psych rehab and going to the bathroom where she felt dizzy, fell and hit head against wall (R side of head). Fell again while trying to get up and hit head against sink. Reports remembering the entire event and thinks if she had LOC it was probably mild. A/w "really bad" headache , mild dizziness, and nausea. Pt also having back and abdominal pain (which she states are chronic). Denies any vision changes, weakness, numbness/tingling, cp , sob, vomiting, dysuria. Review of Systems see below Constitutional: No fever Eyes: No worsening of vision ENT: No nasal symptoms, No sore throat Respiratory: No cough, No shortness of breath Cardiovascular: No chest pain Abdomen: + pain (chronic), + nausea, No vomiting, No diarrhea, No constipation Genitourinary - Female: No dysuria Neurologic: + problem reported (headache and dizziness), No weakness, No numbness/tingling Past Medical/Surgical History Medical Problems: (1) Acute bilateral low back pain (2) Anxiety (3) Anxiety State Nos (4) Asthma (5) Asthma, Unspecified (6) Bipolar II disorder (7) Chest pain (8) Chest pain, atypical (9) E. coli septicemia (10) Fall (11) Fibromyalgia (12) Gram negative septicemia (13) H/O migraine (14) H/O renal calculi (15) H/O urinary tract infection (16) Head injury (17) History of low back pain (18) Hypothyroidism (19) Migraine Unspecified W/O Intractable Migraine (20) Pancreatitis (21) Pyelonephritis (22) UTI (urinary tract infection) Surgical Problems: (1) S/P cholecystectomy Family History Diabetes mellitus FH: cancer FH: heart disease FH: lung disease FHx: gallbladder disease Kidney disease or stones Social History Smoking Status: Never Smoker Alcohol Use: none Drug Use: none Marital Status: single Housing Status: lives with family Occupation Status: disabled Current/Historical Medications Scheduled Control Pills ( Control Pills), 1 TAB PO QAM Cyanocobalamin (Vitamin B-12), 1,000 MCG PO QAM Cyclobenzaprine Hcl (Flexeril), 10 MG PO HS Cyclobenzaprine Hcl (Flexeril), 5 MG PO BID Dicyclomine HCl (Dicyclomine HCl), 20 MG PO QID Docusate Sodium (Docusate Sodium), 100 MG PO QAM Ferrous Sulfate (Ferrous Sulfate), 325 MG PO QDB Fluticasone Propionate (Inhala (Flovent Diskus), 1 PUFF INH BID Gabapentin (Gabapentin), 600 MG PO TID Hydroxyzine Pamoate (Vistaril), 25 MG PO HS Hydroxyzine Pamoate (Vistaril), 50 MG PO HS Lamotrigine (Lamictal), 200 MG PO BID Levothyroxine Sodium (Levothyroxine Sodium), 50 MCG PO QAM Loratadine (Claritin), 10 MG PO QAM Meloxicam (Mobic), 15 MG PO DAILY Ondasetron Odt (Zofran Odt), 4 MG SL Q6H Pantoprazole (Pantoprazole Sodium), 40 MG PO QAM Prazosin Hcl (Minipress), 4 MG PO HS Topiramate (Topamax), 200 MG PO BID Venlafaxine Hcl (Effexor Xr), 150 MG PO QAM Scheduled PRN Albuterol Sulfate (Proair Respiclick), 2 PUFFS INH Q4H PRN for Cough/Shortness Of Breath Epinephrine (Epipen), 0.3 MG IM UD PRN for ALLERGIC REACTION Fluticasone Propionate (Fluticasone Propionate), 2 SPRAYS JERRY QAM PRN for Nasal Congestion Ibuprofen Tab (Motrin), 800 MG PO Q8H PRN for Pain Ipratropium-Albuterol (Duoneb), 1 TREATMENT INH Q4H PRN for SOB/Wheezing Mupirocin 2% (Bactroban 2%), 1 APPLN TOP UD PRN for Skin Impairment Rizatriptan Benzoate (Rizatriptan Benzoate), 10 MG PO UD PRN for Migraine Physical Exam Vital Signs Date Time Temp Pulse Resp B/P (MAP) Pulse Ox O2 Delivery O2 Flow Rate FiO2 08/01/17 16:48 72 20 162/101 98 Room Air 08/01/17 15:50 80 16 147/93 96 Room Air 76 145/95 76 136/93 08/01/17 14:32 37.1 90 17 132/107 94 Room Air Physical Exam see below General Appearance: no apparent distress Head: normocephalic, atraumatic, + pertinent finding (mildly tender to palpation over R parietal region (area of trauma)) Eyes: normal inspection, PERRL, EOMI ENT: normal ENT inspection, TMs normal, pharynx normal Neck: supple, + pertinent finding (No cervical spine TTP) Respiratory/Chest: lungs clear, normal breath sounds Cardiovascular: regular rate, rhythm, no murmur Abdomen / GI: normal bowel sounds, non tender, soft Back: normal inspection, no CVA tenderness Extremities: no calf tenderness, no pedal edema Neurologic/Psych: medical researcher II-XII nml as tested, no motor/sensory deficits, alert , normal mood/affect Medical Decision & Procedures Laboratory Results 08/01/17 15:45 Red Blood Count 4.12, Mean Corpuscular Volume 88.8, Mean Corpuscular Hemoglobin 31.1, Mean Corpuscular Hemoglobin Concent 35.0, Mean Platelet Volume 8.6, Neutrophils (%) (Auto) 54.6, Lymphocytes (%) (Auto) 35.1, Monocytes (%) (Auto) 7.4, Eosinophils (%) (Auto) 1.6, Basophils (%) (Auto) 0.7, Neutrophils # (Auto) 4.73, Lymphocytes # (Auto) 3.04, Monocytes # (Auto) 0.64, Eosinophils # (Auto) 0.14, Basophils # (Auto) 0.06 08/01/17 15:45 Test 08/01/17 15:45 White Blood Count 8.66 K/uL (4.8-10.8) Red Blood Count 4.12 M/uL (4.2-5.4) Hemoglobin 12.8 g/dL (12.0-16.0) Hematocrit 36.6 % (37-47) Mean Corpuscular Volume 88.8 fL (80-100) Mean Corpuscular Hemoglobin 31.1 pg (25-34) Mean Corpuscular Hemoglobin Concent 35.0 g/dl (32-36) Platelet Count 300 K/uL (130-400) Mean Platelet Volume 8.6 fL (7.4-10.4) Neutrophils (%) (Auto) 54.6 % Lymphocytes (%) (Auto) 35.1 % Monocytes (%) (Auto) 7.4 % Eosinophils (%) (Auto) 1.6 % Basophils (%) (Auto) 0.7 % Neutrophils # (Auto) 4.73 K/uL (1.4-6.5) Lymphocytes # (Auto) 3.04 K/uL (1.2-3.4) Monocytes # (Auto) 0.64 K/uL (0.11-0.59) Eosinophils # (Auto) 0.14 K/uL (0-0.5) Basophils # (Auto) 0.06 K/uL (0-0.2) RDW Standard Deviation 42.6 fL (36.4-46.3) RDW Coefficient of Variation 13.1 % (11.5-14.5) Immature Granulocyte % (Auto) 0.6 % Immature Granulocyte # (Auto) 0.05 K/uL (0.00-0.02) Anion Gap 3.0 mmol/L (3-11) Est Creatinine Clear Calc Drug Dose 98.5 ml/min Estimated GFR () 98.0 Estimated GFR (Non- 84.5 BUN/Creatinine Ratio 19.3 (10-20) Calcium Level 8.7 mg/dl (8.5-10.1) Medications Administered Medications (Trade) Dose Ordered Sig/Shelli Route Start Time Stop Time Status Last Admin Dose Admin Sodium Chloride 1,000 ml @ 999 mls/hr Q1H1M IV 08/01/17 15:00 08/01/17 18:00 08/01/17 15:00 999 MLS/HR Acetaminophen (Tylenol Tab) 650 mg NOW STAT PO 08/01/17 15:00 08/01/17 15:02 DC 08/01/17 15:00 650 MG Ketorolac Tromethamine (Toradol Inj) 15 mg STK-MED ONCE .ROUTE 08/01/17 16:52 08/01/17 16:53 DC 08/01/17 16:52 15 MG Medical Decision 2 year old female with hx of migraine headaches, asthma, degenerative disk disease, pancreatitis, kidney stones, bipolar II, anxiety and PTSD who presents to the Emergency Room with complaints of headache s/p fall this PM. No LOC. Normal neurologic exam. Based on history and physical, concerning for possible medication induced dizziness causing fall vs. poly-pharmacy vs. dehydration. Will rule out a potential intracranial hemorrhage with CT head w/ot contrast. Will rule out acute kidney injury, electrolyte abnormalities and infectious etiologies with CBC and BMP. Based on work up below, likely closed head injury s/p fall. Pt advised to rest, follow up with PCP and return if having worsening symptoms. -Ordered Orthostatic vitals - wnl -Ordered CBC, BMP - wnl -Ordered CT head w/ot contrast - no IC abnormality -Ordered IVF NS 3L bolus -Udip negative -Ordered Reglan 10mg IV, Toradol 15mg IV and Tylenol 650mg PO for nausea/ headache - received with some improvement Medication Reconcilliation Current Medication List: was personally reviewed by me Blood Pressure Screening Patient's blood pressure: Elevated blood pressure Impression Primary Impression: Closed head injury Resident Involvement: Resident Care Provided Care Provided: Adult ED Departure Information Dispostion Home / Self-Care Condition GOOD Referrals Dennis Khan M.D. (PCP) Patient Instructions My [facility] Additional Instructions Follow up with your primary care provider in 1-2 days Rest and take Tylenol for headache as needed Stay well hydrated
[2017-08-01] MEDS ORDERED: ACETAMINOPHEN 325 MG TAB PO STA (15:00)
[2017-08-01] MEDS ORDERED: METOCLOPRAMIDE HCL INJ 5 MG/ML 2 ML VIAL IM STA (15:00)
[2017-08-01] MEDS ORDERED: SODIUM CHLORIDE 0.9% 1000ML 1,000 ML IV SCH (15:00)
[2017-08-01] MEDS ORDERED: DOCU100C31 PO (15:45)
[2017-08-01 16:05] LABS: BASO % 0.7 %; BASO ABS # 0.06 K/uL (0-0.2); EOS % 1.6 %; EOS ABS # 0.14 K/uL (0-0.5); HEMATOCRIT 36.6 % (37-47); HEMOGLOBIN 12.8 g/dL (12.0-16.0); IG# 0.05 K/uL (0.00-0.02); LYMPH % 35.1 %; LYMPH ABS # 3.04 K/uL (1.2-3.4); MEAN CELL VOLUME 88.8 fL (80-100); MEAN CORPUSCULAR HEMOGLOBIN 31.1 pg (25-34); MEAN PLATELET VOLUME 8.6 fL (7.4-10.4); MONO % 7.4 %; MONO ABS # 0.64 K/uL (0.11-0.59); NEUT % 54.6 %; NEUT ABS # 4.73 K/uL (1.4-6.5); PLATELET COUNT 300 K/uL (130-400); RED CELL DISTRIBUTION WIDTH CV 13.1 % (11.5-14.5); RED CELL DISTRIBUTION WIDTH SD 42.6 fL (36.4-46.3); WHITE BLOOD COUNT 8.66 K/uL (4.8-10.8)
[2017-08-01] MEDS ORDERED: DICY1TAB25 PO (16:08)
[2017-08-01] MEDS ORDERED: CYCL10TA6 PO (16:18)
[2017-08-01 16:25] LABS: CALCIUM 8.7 mg/dl (8.5-10.1); CREATININE 0.84 mg/dl (0.60-1.20); POTASSIUM 3.6 mmol/L (3.5-5.1)
[2017-08-01] MEDS ORDERED: NRN600 PO (16:35)
--- NOTE | 2017-08-01 16:45 | DIAGNOSTIC IMAGING REPORT ---
HEAD WITHOUT CONTRAST (CT) CLINICAL HISTORY: 42 years-old Female presenting with fall; hit head R side. TECHNIQUE: Multidetector CT imaging of the head was performed without the use of intravenous contrast. IV contrast: None. A dose lowering technique was used consistent with the principles of ALARA (as low as reasonably achievable). COMPARISON: 03/27/2017. CT DOSE (mGy.cm): The estimated cumulative dose is 690.05 mGycm. FINDINGS: Factory Helper topogram: Unremarkable. Ventricles and sulci normal in size. Brain parenchyma normal in appearance with preserved maddox-white differentiation. No mass effect or midline shift. No hemorrhage or acute territorial infarct. No extra-axial fluid collection. Paranasal sinuses and mastoid air cells clear. Calvarium intact. IMPRESSION: 1. No acute intracranial abnormality. Electronically signed by: Dennis Hawk M.D. 08/01/2017 4:44 PM Dictated Date/Time: 08/01/2017 4:42 PM
[2017-08-01] MEDS ORDERED: KETOROLAC TROMETHAMINE 15 MG/ML VIAL IV STA (16:52)
[2017-08-01] MEDS ORDERED: KETOROLAC TROMETHAMINE 15 MG/ML VIAL ONE (16:52)
--- NOTE | 2017-08-01 17:03 | EMERGENCY ROOM VISIT NOTE ---
History Report prepared by Antonieta: Curt Milton Under the Supervision of: Dr. Miller Raymond M.D. First contact with patient: 14:27 Chief Complaint: FALL Stated Complaint: FALL/HEAD PAIN History of Present Illness The patient is a 42 year old female who presents to the Emergency Room with complaints of a sudden headache after a fall occurring prior to arrival. The patient is currently rating her discomfort as a 10/10 in severity. She reports that she was in the bathroom and got dizzy and fell. She hit her head on the wall and then the sink. The patient did not lose consciousness, and she remembers the whole event. The patient states that she is currently having nausea and dizziness. She notes that she has chronic back pain and abdominal pain, and she does not have any new pain. The patient denies any fever, chest pain, shortness of breath, vomiting, bowel symptoms, and weakness. She notes that she has been urinating very frequently recently. The patient has a history of DJD, kidney stones, migraines, bipolar 2, anxiety, and PTSD. She additionally notes that she has been having headaches this week. Source of History: patient Onset: prior to arrival Position: head Symptom Intensity: 10/10 Quality: ache Timing: other (sudden) Associated Symptoms: + nausea, No fevers, No chest pain, No SOB, No vomiting , No weakness Note: Associated symptoms: Dizziness Review of Systems See HPI for pertinent positives and negatives. A total of ten systems were reviewed and were otherwise negative. Past Medical & Surgical Medical Problems: (1) Acute bilateral low back pain (2) Anxiety (3) Anxiety State Nos (4) Asthma (5) Asthma, Unspecified (6) Bipolar II disorder (7) Chest pain (8) Chest pain, atypical (9) E. coli septicemia (10) Fall (11) Fibromyalgia (12) Gram negative septicemia (13) H/O migraine (14) H/O renal calculi (15) H/O urinary tract infection (16) Head injury (17) History of low back pain (18) Hypothyroidism (19) Migraine Unspecified W/O Intractable Migraine (20) Pancreatitis (21) Pyelonephritis (22) UTI (urinary tract infection) Surgical Problems: (1) S/P cholecystectomy Family History Diabetes mellitus FH: cancer FH: heart disease FH: lung disease FHx: gallbladder disease Kidney disease or stones Social History Smoking Status: Never Smoker Alcohol Use: none Drug Use: none Marital Status: single Housing Status: lives with family Occupation Status: disabled Current/Historical Medications Scheduled Control Pills ( Control Pills), 1 TAB PO QAM Cyanocobalamin (Vitamin B-12), 1,000 MCG PO QAM Cyclobenzaprine Hcl (Flexeril), 10 MG PO HS Cyclobenzaprine Hcl (Flexeril), 5 MG PO BID Dicyclomine HCl (Dicyclomine HCl), 20 MG PO QID Docusate Sodium (Docusate Sodium), 100 MG PO QAM Ferrous Sulfate (Ferrous Sulfate), 325 MG PO QDB Fluticasone Propionate (Inhala (Flovent Diskus), 1 PUFF INH BID Gabapentin (Gabapentin), 600 MG PO TID Hydroxyzine Pamoate (Vistaril), 25 MG PO HS Hydroxyzine Pamoate (Vistaril), 50 MG PO HS Lamotrigine (Lamictal), 200 MG PO BID Levothyroxine Sodium (Levothyroxine Sodium), 50 MCG PO QAM Loratadine (Claritin), 10 MG PO QAM Meloxicam (Mobic), 15 MG PO DAILY Ondasetron Odt (Zofran Odt), 4 MG SL Q6H Pantoprazole (Pantoprazole Sodium), 40 MG PO QAM Prazosin Hcl (Minipress), 4 MG PO HS Topiramate (Topamax), 200 MG PO BID Venlafaxine Hcl (Effexor Xr), 150 MG PO QAM Scheduled PRN Albuterol Sulfate (Proair Respiclick), 2 PUFFS INH Q4H PRN for Cough/Shortness Of Breath Epinephrine (Epipen), 0.3 MG IM UD PRN for ALLERGIC REACTION Fluticasone Propionate (Fluticasone Propionate), 2 SPRAYS JERRY QAM PRN for Nasal Congestion Ibuprofen Tab (Motrin), 800 MG PO Q8H PRN for Pain Ipratropium-Albuterol (Duoneb), 1 TREATMENT INH Q4H PRN for SOB/Wheezing Mupirocin 2% (Bactroban 2%), 1 APPLN TOP UD PRN for Skin Impairment Rizatriptan Benzoate (Rizatriptan Benzoate), 10 MG PO UD PRN for Migraine Allergies Coded Allergies: BEE STING (Verified Allergy, Severe, ANAPHYLAXIS, 05/05/17) Morphine (Verified Adverse Reaction, Intermediate, HALLUCINATIONS, 05/05/17 ) Physical Exam Vital Signs Date Time Temp Pulse Resp B/P (MAP) Pulse Ox O2 Delivery O2 Flow Rate FiO2 08/01/17 18:27 74 20 139/87 96 08/01/17 17:34 76 20 148/76 97 Room Air 08/01/17 16:48 72 20 162/101 98 Room Air 08/01/17 15:50 80 16 147/93 96 Room Air 76 145/95 76 136/93 08/01/17 14:32 37.1 90 17 132/107 94 Room Air Physical Exam GENERAL: Awake, alert, well-appearing, in no distress HENT: Normocephalic, atraumatic. Oropharynx unremarkable. Dry mucous membranes. EYES: Normal conjunctiva. Sclera non-icteric. NECK: Supple. No nuchal rigidity. FROM. No JVD. RESPIRATORY: Clear to auscultation. CARDIAC: Regular rate, normal rhythm. Extremities warm and well perfused. Pulses equal. ABDOMEN: Soft, non-distended. No tenderness to palpation. No rebound or guarding. No masses. RECTAL: Deferred. MUSCULOSKELETAL: Chest examination reveals no tenderness. The back is symmetrical on inspection without obvious abnormality. There is no CVA tenderness to palpation. No joint edema. LOWER EXTREMITIES: Calves are equal size bilaterally and non-tender. No edema. No discoloration. NEURO: Normal sensorium. No sensory or motor deficits noted. Normal cerebellar function with [id number], alternating palms, [id number]. SKIN: No rash or jaundice noted. Medical Decision & Procedures ER Provider Diagnostic Interpretation: Radiology results as stated below per my review and radiologist interpretation: HEAD WITHOUT CONTRAST (CT) CLINICAL HISTORY: 42 years-old Female presenting with fall; hit head R side. TECHNIQUE: Multidetector CT imaging of the head was performed without the use of intravenous contrast. IV contrast: None. A dose lowering technique was used consistent with the principles of ALARA (as low as reasonably achievable). COMPARISON: 03/27/2017. CT DOSE (mGy.cm): The estimated cumulative dose is 690.05 mGycm. FINDINGS: Game Designer/Creative Director topogram: Unremarkable. Ventricles and sulci normal in size. Brain parenchyma normal in appearance with preserved maddox-white differentiation. No mass effect or midline shift. No hemorrhage or acute territorial infarct. No extra-axial fluid collection. Paranasal sinuses and mastoid air cells clear. Calvarium intact. IMPRESSION: 1. No acute intracranial abnormality. Electronically signed by: Dennis Hawk M.D. 08/01/2017 4:44 PM Dictated Date/Time: 08/01/2017 4:42 PM Laboratory Results 08/01/17 15:45 Red Blood Count 4.12, Mean Corpuscular Volume 88.8, Mean Corpuscular Hemoglobin 31.1, Mean Corpuscular Hemoglobin Concent 35.0, Mean Platelet Volume 8.6, Neutrophils (%) (Auto) 54.6, Lymphocytes (%) (Auto) 35.1, Monocytes (%) (Auto) 7.4, Eosinophils (%) (Auto) 1.6, Basophils (%) (Auto) 0.7, Neutrophils # (Auto) 4.73, Lymphocytes # (Auto) 3.04, Monocytes # (Auto) 0.64, Eosinophils # (Auto) 0.14, Basophils # (Auto) 0.06 08/01/17 15:45 Test 08/01/17 15:45 White Blood Count 8.66 K/uL (4.8-10.8) Red Blood Count 4.12 M/uL (4.2-5.4) Hemoglobin 12.8 g/dL (12.0-16.0) Hematocrit 36.6 % (37-47) Mean Corpuscular Volume 88.8 fL (80-100) Mean Corpuscular Hemoglobin 31.1 pg (25-34) Mean Corpuscular Hemoglobin Concent 35.0 g/dl (32-36) Platelet Count 300 K/uL (130-400) Mean Platelet Volume 8.6 fL (7.4-10.4) Neutrophils (%) (Auto) 54.6 % Lymphocytes (%) (Auto) 35.1 % Monocytes (%) (Auto) 7.4 % Eosinophils (%) (Auto) 1.6 % Basophils (%) (Auto) 0.7 % Neutrophils # (Auto) 4.73 K/uL (1.4-6.5) Lymphocytes # (Auto) 3.04 K/uL (1.2-3.4) Monocytes # (Auto) 0.64 K/uL (0.11-0.59) Eosinophils # (Auto) 0.14 K/uL (0-0.5) Basophils # (Auto) 0.06 K/uL (0-0.2) RDW Standard Deviation 42.6 fL (36.4-46.3) RDW Coefficient of Variation 13.1 % (11.5-14.5) Immature Granulocyte % (Auto) 0.6 % Immature Granulocyte # (Auto) 0.05 K/uL (0.00-0.02) Anion Gap 3.0 mmol/L (3-11) Est Creatinine Clear Calc Drug Dose 98.5 ml/min Estimated GFR () 98.0 Estimated GFR (Non- 84.5 BUN/Creatinine Ratio 19.3 (10-20) Calcium Level 8.7 mg/dl (8.5-10.1) Laboratory results reviewed by me Medications Administered Medications (Trade) Dose Ordered Sig/Shelli Route Start Time Stop Time Status Last Admin Dose Admin Sodium Chloride 1,000 ml @ 999 mls/hr Q1H1M IV 08/01/17 15:00 08/01/17 18:00 DC 08/01/17 15:00 999 MLS/HR Acetaminophen (Tylenol Tab) 650 mg NOW STAT PO 08/01/17 15:00 08/01/17 15:02 DC 08/01/17 15:00 650 MG Ketorolac Tromethamine (Toradol Inj) 15 mg STK-MED ONCE .ROUTE 08/01/17 16:52 08/01/17 16:53 DC 08/01/17 16:52 15 MG ED Course 1427: The patient was evaluated in room C1. A complete history and physical exam was performed. 1801: The patient was reevaluated, and she will be discharged home. SHe was agreeable to the treatment plan. Medical Decision I reviewed the patient's past medical history, medications, and the nursing notes as described above. Differential diagnosis: Etiologies such as migraine headache, meningitis, sinusitis, CO exposure, ICH, SAH, infection, tumor, headache, sinus thrombosis, arterial dissection, as well as others were entertained. The patient is a 42-year-old woman who presents emergency department after having a fall after feeling lightheaded that was not witnessed with head strike at her outpatient mental health program per hpi. Denies LOC. On arrival the patient is relatively well-appearing in no acute distress, afebrile stable vital signs. There is no evidence of external trauma. She is neurologically intact including normal cerebellar function with [id number], alternating palms, [id number]. Labs unremarkable. Urine dip negative. CT head negative. Patient feeling improved after IV fluids, Reglan, Toradol. Findings and plan for follow-up reviewed with patient. Patient agreeable and d/c'd per discharge instructions. Head Trauma GCS Score: 15 Medication Reconcilliation Current Medication List: was personally reviewed by me Blood Pressure Screening Patient's blood pressure: Elevated blood pressure Blood pressure disposition: Referred to PCP Impression Primary Impression: Closed head injury Additional Impression: Fall Scribe Attestation The scribe's documentation has been prepared under my direction and personally reviewed by me in its entirety. I confirm that the note above accurately reflects all work, treatment, procedures, and medical decision making performed by me. Departure Information Dispostion Home / Self-Care Referrals Dennis Khan M.D. (PCP) Forms HOME CARE DOCUMENTATION FORM, IMPORTANT VISIT INFORMATION Patient Instructions Headache Pain, My [facility] Additional Instructions Follow up with your primary care provider in 1-2 days Rest and take Tylenol for headache as needed Stay well hydrated Problem Qualifiers
[2017-08-01] MEDS ORDERED: METOCLOPRAMIDE HCL INJ 5 MG/ML 2 ML VIAL IV. STA (17:14)
[2017-08-01] MEDS ORDERED: CYAN10005 PO (17:14)
[2017-08-01] MEDS ORDERED: FERR1TAB62 PO (18:06)
[2017-08-01] MEDS ORDERED: ALBU18002 INH (18:06)
[2017-08-01 18:27] VITALS: BP 139/87; PULSE 74; O2SAT 96
[2017-08-01] MEDS ORDERED: MELO-84 PO (18:30)
[2017-08-01] MEDS ORDERED: PANT40TA2 PO (20:13)
[2017-08-01] MEDS ORDERED: LEVO50TA6 PO (20:13)
[2017-08-01] MEDS ORDERED: FLNIN/ NAE (20:13)
[2017-08-01] MEDS ORDERED: CLR10 PO (20:17)
[2017-08-01] MEDS ORDERED: PRAZ2CAP PO (20:52)
[2017-08-01] MEDS ORDERED: HYDR50CA PO (20:52)
[2017-08-01] MEDS ORDERED: TOPI200T14 PO (20:52)
[2017-08-01] MEDS ORDERED: LAMO200T PO (20:52)
[2017-08-01] MEDS ORDERED: HYDR25CA PO (20:52)
[2017-08-01] MEDS ORDERED: VENL150C PO (20:52)
[2017-08-01] MEDS ORDERED: BCPILLS PO (20:58)
[2017-08-01] MEDS ORDERED: IPRASOL4 INH (20:58)
[2017-08-01] MEDS ORDERED: EPP3/2 IM (21:52)
== END 2017-08-01 18:30 | disposition home or self-care (01) ==
LOC: EDBD 14:18 → C.EDC 14:22
DX: S09.90XA Unspecified injury of head, initial encounter (principal); W01.198A Fall on same level from slipping, tripping and stumbling with subsequent striking against other object, initial encounter; Y92.002 Bathroom of unspecified non-institutional (private) residence as the place of occurrence of the external cause; R03.0 Elevated blood-pressure reading, without diagnosis of hypertension; R42 Dizziness and giddiness; R11.0 Nausea; M54.9 Dorsalgia, unspecified; G89.29 Other chronic pain; R10.9 Unspecified abdominal pain; J45.909 Unspecified asthma, uncomplicated; F31.9 Bipolar disorder, unspecified; F41.9 Anxiety disorder, unspecified; E03.9 Hypothyroidism, unspecified; Z79.899 Other long term (current) drug therapy; Z79.3 Long term (current) use of hormonal contraceptives; Z88.6 Allergy status to analgesic agent; Z91.030 Bee allergy status; Z83.3 Family history of diabetes mellitus; Z82.49 Family history of ischemic heart disease and other diseases of the circulatory system; Z83.6 Family history of other diseases of the respiratory system; Z83.79 Family history of other diseases of the digestive system; Z84.1 Family history of disorders of kidney and ureter

== ENCOUNTER 2017-08-09 16:03 | Emergency (ER) | payer OTHER ==
[~2017-08-09] VITALS: Ht 162.6 cm; Wt 97.5 kg
[~2017-08-09 16:03] MED LIST changes: +ALBU18002 INH; +BCPILLS PO; +BCTCR/30 TOP; +CLR10 PO; +CYAN10005 PO; -CYCL5TAB PO; +DICY1TAB25 PO; +DOCU100C31 PO; +EPP3/2 IM; +FERR1TAB62 PO; +FLNIN/ NAE; +FLUT1AER4 INH; +HYDR25CA PO; +HYDR50CA PO; +IPRASOL4 INH; +LAMO200T PO; +LEVO50TA6 PO; +MELO-84 PO; +NRN600 PO; +PANT40TA2 PO; +PRAZ2CAP PO; +RIZA1TAB7 PO; +TOPI200T14 PO; +VENL150C PO
[2017-08-09 16:08] VITALS: TEMP 37.1; Ht 162.6 cm; Wt 97.5 kg
[2017-08-09] MEDS ORDERED: KETOROLAC TROMETHAMINE 30 MG/ML VIAL IV STA (16:28)
[2017-08-09] MEDS ORDERED: SODIUM CHLORIDE 0.9% 1000ML 1,000 ML IV STA (16:28)
[2017-08-09] MEDS ORDERED: DiphenhydrAMINE HCL 50 MG/ML VIAL IV STA (16:34)
[2017-08-09 17:01] LABS: BASO % 0.7 %; BASO ABS # 0.06 K/uL (0-0.2); EOS % 1.6 %; EOS ABS # 0.14 K/uL (0-0.5); HEMATOCRIT 40.2 % (37-47); HEMOGLOBIN 13.8 g/dL (12.0-16.0); IG# 0.06 K/uL (0.00-0.02); LYMPH % 35.2 %; LYMPH ABS # 3.03 K/uL (1.2-3.4); MEAN CELL VOLUME 89.3 fL (80-100); MEAN CORPUSCULAR HEMOGLOBIN 30.7 pg (25-34); MEAN CORPUSCULAR HGB CONC 34.3 g/dl (32-36); MEAN PLATELET VOLUME 8.9 fL (7.4-10.4); MONO % 7.8 %; MONO ABS # 0.67 K/uL (0.11-0.59); NEUT ABS # 4.64 K/uL (1.4-6.5); PLATELET COUNT 305 K/uL (130-400); RED CELL DISTRIBUTION WIDTH SD 42.1 fL (36.4-46.3)
[2017-08-09 17:30] LABS: ALBUMIN 3.7 gm/dl (3.4-5.0); CALCIUM 8.9 mg/dl (8.5-10.1); CREATININE 0.92 mg/dl (0.60-1.20)
--- NOTE | 2017-08-09 18:01 | DIAGNOSTIC IMAGING REPORT ---
ABDOMEN 2VIEW W/PA CHEST RTN CLINICAL HISTORY: abd pain pain. Nausea. COMPARISON STUDY: 06/21/2017 FINDINGS: The soft tissues, psoas shadows, renal outlines and intestinal gas pattern appear normal. There is no evidence for bowel obstruction. There is no evidence for free intraperitoneal air. No abnormal abdominal calcifications are seen. A frontal view of the chest was performed and is unremarkable. IMPRESSION: Normal study. The above report was generated using voice recognition software. It may contain grammatical, syntax or spelling errors. Electronically signed by: Shashank Polk M.D. 08/09/2017 5:59 PM Dictated Date/Time: 08/09/2017 5:59 PM
[2017-08-09] MEDS ORDERED: SULFAMETHOXAZOLE/TRIMETHOPRIM DS 800/160MG TAB PO STA (18:16)
[2017-08-09] MEDS ORDERED: SULF800T23 PO (18:17)
--- NOTE | 2017-08-09 18:21 | EMERGENCY ROOM VISIT NOTE ---
History Report prepared by Antonieta: Curt Milton Under the Supervision of: Dr. Gregory Will D.O. First contact with patient: 16:14 Chief Complaint: OTHER COMPLAINT Stated Complaint: HEADACHE, ILLNESS, CHEST PAIN, ABDOMINAL PAIN History of Present Illness The patient is a 42 year old female who presents to the Emergency Room with complaints of a constant diffuse headache for the past week after a fall. She describes the pain as a sharp pain and is a 9/10 in severity, and laying down relieves the pain. The patient states that she has a history of migraines in the front of her head, though this is in the back of her head as well. This headache started after she hit her head earlier this month. She notes that she has been taking her migraine medications. The patient additionally is complaining of off and on abdominal pain for the past few months and has recently started back up again 2 days ago. She notes that she has been nauseous , and nothing makes the pain better or worse. The patient states that the abdominal pain is on both sides and worse in the right lower quadrant. She notes that she has a history of a cholecystectomy, and she still has her appendix. The patient additionally notes that she has a history of a left sided kidney infection. Her last bowel movement was yesterday. The patient denies any fever, vomiting, and pain with urination. Source of History: patient Onset: the past week Position: head (diffuse) Symptom Intensity: 9/10 Quality: sharp Timing: constant Associated Symptoms: + nausea, + abdominal pain, No fevers, No vomiting Review of Systems See HPI for pertinent positives & negatives. A total of 10 systems reviewed and were otherwise negative. Past Medical & Surgical Medical Problems: (1) Acute bilateral low back pain (2) Anxiety (3) Anxiety State Nos (4) Asthma (5) Asthma, Unspecified (6) Bipolar II disorder (7) Chest pain (8) Chest pain, atypical (9) E. coli septicemia (10) Fall (11) Fibromyalgia (12) Gram negative septicemia (13) H/O migraine (14) H/O renal calculi (15) H/O urinary tract infection (16) Head injury (17) History of low back pain (18) Hypothyroidism (19) Migraine Unspecified W/O Intractable Migraine (20) Pancreatitis (21) Pyelonephritis (22) UTI (urinary tract infection) Surgical Problems: (1) S/P cholecystectomy Family History Diabetes mellitus FH: cancer FH: heart disease FH: lung disease FHx: gallbladder disease Kidney disease or stones Social History Smoking Status: Never Smoker Alcohol Use: none Drug Use: none Marital Status: single Housing Status: lives with family Occupation Status: disabled Current/Historical Medications Scheduled Control Pills ( Control Pills), 1 TAB PO QAM Cyanocobalamin (Vitamin B-12), 1,000 MCG PO QAM Cyclobenzaprine Hcl (Flexeril), 10 MG PO HS Dicyclomine HCl (Dicyclomine HCl), 20 MG PO QID Docusate Sodium (Docusate Sodium), 100 MG PO QAM Ferrous Sulfate (Ferrous Sulfate), 325 MG PO QDB Fluticasone Propionate (Inhala (Flovent Diskus), 1 PUFF INH BID Gabapentin (Gabapentin), 600 MG PO TID Hydroxyzine Pamoate (Vistaril), 25 MG PO HS Hydroxyzine Pamoate (Vistaril), 50 MG PO HS Lamotrigine (Lamictal), 200 MG PO BID Levothyroxine Sodium (Levothyroxine Sodium), 50 MCG PO QAM Loratadine (Claritin), 10 MG PO QAM Meloxicam (Mobic), 15 MG PO DAILY Ondasetron Odt (Zofran Odt), 4 MG SL Q6H Pantoprazole (Pantoprazole Sodium), 40 MG PO QAM Prazosin Hcl (Minipress), 4 MG PO HS Sulfa/Trimethoprim (Bactrim Ds 800MG/160MG), 1 TAB PO BID Topiramate (Topamax), 200 MG PO BID Venlafaxine Hcl (Effexor Xr), 150 MG PO QAM Scheduled PRN Albuterol Sulfate (Proair Respiclick), 2 PUFFS INH Q4H PRN for Cough/Shortness Of Breath Epinephrine (Epipen), 0.3 MG IM UD PRN for ALLERGIC REACTION Fluticasone Propionate (Fluticasone Propionate), 2 SPRAYS JERRY QAM PRN for Nasal Congestion Ibuprofen Tab (Motrin), 800 MG PO Q8H PRN for Pain Ipratropium-Albuterol (Duoneb), 1 TREATMENT INH Q4H PRN for SOB/Wheezing Mupirocin 2% (Bactroban 2%), 1 APPLN TOP UD PRN for Skin Impairment Rizatriptan Benzoate (Rizatriptan Benzoate), 10 MG PO UD PRN for Migraine Allergies Coded Allergies: BEE STING (Verified Allergy, Severe, ANAPHYLAXIS, 08/09/17) Morphine (Verified Adverse Reaction, Intermediate, HALLUCINATIONS, 08/09/17 ) Physical Exam Vital Signs Date Time Temp Pulse Resp B/P (MAP) Pulse Ox O2 Delivery O2 Flow Rate FiO2 08/09/17 18:31 79 16 158/105 98 08/09/17 16:08 37.1 92 18 144/103 96 Room Air Physical Exam GENERAL: Sitting up in bed, laughing, smiling, no acute distress, and nontoxic EYE EXAM: normal conjunctiva. PERRL and EOM's intact. OROPHARYNX: no exudate, no erythema, lips, buccal mucosa, and tongue normal and mucous membranes are moist NECK: supple, no nuchal rigidity, no adenopathy, non-tender LUNGS: Clear to auscultation. Normal chest wall mechanics HEART: no murmurs, S1 normal and S2 normal ABDOMEN: abdomen soft, non-tender, normo-active bowel sounds, no masses, no rebound or guarding. BACK: Back is symmetrical on inspection and there is no deformity, no midline tenderness, no CVA tenderness. SKIN: no rashes and no bruising UPPER EXTREMITIES: upper extremities are grossly normal. LOWER EXTREMITIES: No pitting edema. NEURO EXAM: Normal sensorium, cranial nerves II-XII intact, normal speech, no weakness of arms, no weakness of legs. No drift. Finger to nose intact. Gross sensation intact. Medical Decision & Procedures ER Provider Diagnostic Interpretation: Radiology results as stated below per my review and the radiologist's interpretation: ABDOMEN 2VIEW W/PA CHEST RTN CLINICAL HISTORY: abd pain pain. Nausea. COMPARISON STUDY: 06/21/2017 FINDINGS: The soft tissues, psoas shadows, renal outlines and intestinal gas pattern appear normal. There is no evidence for bowel obstruction. There is no evidence for free intraperitoneal air. No abnormal abdominal calcifications are seen. A frontal view of the chest was performed and is unremarkable. IMPRESSION: Normal study. The above report was generated using voice recognition software. It may contain grammatical, syntax or spelling errors. Electronically signed by: Shashank Polk M.D. 08/09/2017 5:59 PM Dictated Date/Time: 08/09/2017 5:59 PM Laboratory Results 08/09/17 16:45 Red Blood Count 4.50, Mean Corpuscular Volume 89.3, Mean Corpuscular Hemoglobin 30.7, Mean Corpuscular Hemoglobin Concent 34.3, Mean Platelet Volume 8.9, Neutrophils (%) (Auto) 54.0, Lymphocytes (%) (Auto) 35.2, Monocytes (%) (Auto) 7.8, Eosinophils (%) (Auto) 1.6, Basophils (%) (Auto) 0.7, Neutrophils # (Auto) 4.64, Lymphocytes # (Auto) 3.03, Monocytes # (Auto) 0.67, Eosinophils # (Auto) 0.14, Basophils # (Auto) 0.06 08/09/17 16:45 Test 08/09/17 16:45 08/09/17 17:20 White Blood Count 8.60 K/uL (4.8-10.8) Red Blood Count 4.50 M/uL (4.2-5.4) Hemoglobin 13.8 g/dL (12.0-16.0) Hematocrit 40.2 % (37-47) Mean Corpuscular Volume 89.3 fL (80-100) Mean Corpuscular Hemoglobin 30.7 pg (25-34) Mean Corpuscular Hemoglobin Concent 34.3 g/dl (32-36) Platelet Count 305 K/uL (130-400) Mean Platelet Volume 8.9 fL (7.4-10.4) Neutrophils (%) (Auto) 54.0 % Lymphocytes (%) (Auto) 35.2 % Monocytes (%) (Auto) 7.8 % Eosinophils (%) (Auto) 1.6 % Basophils (%) (Auto) 0.7 % Neutrophils # (Auto) 4.64 K/uL (1.4-6.5) Lymphocytes # (Auto) 3.03 K/uL (1.2-3.4) Monocytes # (Auto) 0.67 K/uL (0.11-0.59) Eosinophils # (Auto) 0.14 K/uL (0-0.5) Basophils # (Auto) 0.06 K/uL (0-0.2) RDW Standard Deviation 42.1 fL (36.4-46.3) RDW Coefficient of Variation 13.0 % (11.5-14.5) Immature Granulocyte % (Auto) 0.7 % Immature Granulocyte # (Auto) 0.06 K/uL (0.00-0.02) Anion Gap 4.0 mmol/L (3-11) Est Creatinine Clear Calc Drug Dose 88.5 ml/min Estimated GFR () 87.8 Estimated GFR (Non- 75.7 BUN/Creatinine Ratio 22.2 (10-20) Calcium Level 8.9 mg/dl (8.5-10.1) Total Bilirubin 0.4 mg/dl (0.2-1) Direct Bilirubin mg/dl (0-0.2) Aspartate Amino Transf (AST/SGOT) 16 U/L (15-37) Alanine Aminotransferase (ALT/SGPT) 24 U/L (12-78) Alkaline Phosphatase 50 U/L (45-117) Total Protein 8.0 gm/dl (6.4-8.2) Albumin 3.7 gm/dl (3.4-5.0) Lipase 112 U/L (73-393) Chemistry Specimen Hemolysis Urine Color YELLOW Urine Appearance CLOUDY (CLEAR) Urine pH 6.5 (4.5-7.5) Urine Specific [place] 1.024 (1.000-1.030) Urine Protein NEG (NEG) Urine Glucose (UA) NEG (NEG) Urine Ketones NEG (NEG) Urine Occult Blood NEG (NEG) Urine Nitrite NEG (NEG) Urine Bilirubin NEG (NEG) Urine Urobilinogen NEG (NEG) Urine Leukocyte Esterase SMALL (NEG) Urine WBC (Auto) >30 /hpf (0-5) Urine RBC (Auto) 0-4 /hpf (0-4) Urine Hyaline Casts (Auto) 1-5 /lpf (0-5) Urine Epithelial Cells (Auto) >30 /lpf (0-5) Urine Bacteria (Auto) 2+ (NEG) Urine Pathogenic Casts /lpf (0) Urine Test NEG (NEG) Laboratory results per my review. Medications Administered Medications (Trade) Dose Ordered Sig/Shelli Route Start Time Stop Time Status Last Admin Dose Admin Sodium Chloride 1,000 ml @ 999 mls/hr Q1H1M STAT IV 08/09/17 16:28 08/09/17 17:28 DC 08/09/17 17:13 999 MLS/HR Ketorolac Tromethamine (Toradol Inj) 30 mg NOW STAT IV 08/09/17 16:28 08/09/17 16:30 DC 08/09/17 17:13 30 MG Diphenhydramine HCl (Benadryl Inj) 50 mg NOW STAT IV 08/09/17 16:34 08/09/17 16:35 DC 08/09/17 17:13 50 MG Trimethoprim/ Sulfamethoxazole (Septra Ds 800/ 160MG Tab) 1 tab NOW STAT PO 08/09/17 18:16 08/09/17 18:17 DC 08/09/17 18:28 1 TAB ED Course ED COURSE: Vital signs were reviewed and showed hypertension The patients medical record was reviewed The above diagnostic studies were performed and reviewed. ED treatments and interventions as stated above. 1614: The patient was evaluated in room B6. A complete history and physical examination was performed. 1628: Toradol 30mg IV, Sodium Chloride 1000 ml @ 999 mls/hr IV 1634: Benadryl 50mg IV 1812: Upon reevaluation, the patient is doing well, and her headache has improved.I discussed my findings with the patient and she understands and agrees with the treatment plan. Based on the patients age, coexisting illnesses, exam and lab findings the decision to treat as an outpatient was made. The patient remained stable while under my care. The patient appeared well at the time of discharge. 1816: Septra Ds 800/160mg 1 Tab PO Medical Decision Differential Diagnosis includes but is not limited to headache, tension headache , cluster headache, migraine, subarachnoid hemorrhage, meningitis, mass, central venous thrombus, concussion, trauma and epidural/subdural hemorrhage. Patient is a 42-year-old female who was seen here twice before earlier this month. She has 2 separate complaints. Initial complaint is a headache. This is been going on since she hit her head earlier this month. It does wax and wane. No fevers. No neck stiffness. Vitals are stable. CBC along with BMP, LFTs, bilirubin and lipase is unremarkable. Neurologically she is completely intact. was negative. UA was contaminated with multiple epithelial cells. She also complains of abdominal pain which is been constant for the past 2 days. She notes that this pain has been intermittent over the past 2 months. Abdominal exam is completely benign. She has no tenderness. During exam she notes that "I did not have any abdominal pain when you pushed because you distracted me and was talking to me." Obstruction series is unremarkable. There is no rebound or peritonitis. Vitals again were stable. With abdominal pain over the course of 2 days would expect a leukocytosis if this were her appendix. She is given strict instructions to return if anything worsens. She will follow-up with her PCP. She was given IV Toradol and Benadryl. She did feel significantly better. Discussed with Pt concerning signs and symptoms to watch out for. Pt was instructed to follow up with their PCP and discussed with the patient their option to return to the ED at anytime for persistent or worsening symptoms. The appropriate anticipatory guidance and out-patient management, including indications for return to the emergency department, were explained at length to the patient and understood. Medication Reconcilliation Current Medication List: was personally reviewed by me Blood Pressure Screening Patient's blood pressure: Elevated blood pressure Blood pressure disposition: Referred to PCP Impression Primary Impression: Headache Additional Impression: Abdominal pain Scribe Attestation The scribe's documentation has been prepared under my direction and personally reviewed by me in its entirety. I confirm that the note above accurately reflects all work, treatment, procedures, and medical decision making performed by me. Departure Information Dispostion Home / Self-Care Prescriptions Sulfa/Trimethoprim (Bactrim Ds 800MG/160MG) Tab 1 TAB PO BID, #6 TAB Prov: Gregory Will, DO 08/09/17 Referrals Dennis Khan M.D. (PCP) Forms HOME CARE DOCUMENTATION FORM, IMPORTANT VISIT INFORMATION, WORK / SCHOOL INSTRUCTIONS Patient Instructions My [facility] Additional Instructions Please follow up with your primary care doctor with in the next 24 hours. Any worsening of your symptoms, please return to the ED immediately. This includes any fevers greater than 100.4, worsening pain, chest pain, shortness breath, persistent nausea, vomiting, unable to eat or drink, or any other concerning signs or symptoms from your standpoint. Please take Motrin or Tylenol as needed for pain. You were given a short prescription for antibiotics to cover for possible urinary tract infection. You will receive a phone call from us an additional prescription if your culture is positive. Problem Qualifiers
[2017-08-09 18:31] VITALS: BP 158/105; PULSE 79; O2SAT 98
== END 2017-08-09 18:32 | disposition home or self-care (01) ==
LOC: EDBD 16:03 → C.ED 16:04 → C.EDB 18:32
DX: R51 Headache (principal); R10.9 Unspecified abdominal pain; J45.909 Unspecified asthma, uncomplicated; E03.9 Hypothyroidism, unspecified; F41.9 Anxiety disorder, unspecified; Z91.81 History of falling; Z87.442 Personal history of urinary calculi; Z87.440 Personal history of urinary (tract) infections; Z90.49 Acquired absence of other specified parts of digestive tract; Z83.3 Family history of diabetes mellitus; Z91.030 Bee allergy status; Z88.5 Allergy status to narcotic agent; Z79.899 Other long term (current) drug therapy

== ENCOUNTER 2017-08-19 13:42 | Emergency (ER) | payer OTHER ==
[~2017-08-19] VITALS: Ht 162.6 cm; Wt 98.2 kg
[~2017-08-19 13:42] MED LIST changes: +SULF800T23 PO
[2017-08-19 13:46] VITALS: TEMP 36.6; Ht 162.6 cm; Wt 98.2 kg
[2017-08-19] MEDS ORDERED: LIDODERM (LIDOCAINE) PATCH 5% TD STA (14:39)
--- NOTE | 2017-08-19 15:25 | EMERGENCY ROOM VISIT NOTE ---
History First contact with patient: 14:25 Chief Complaint: RIB PAIN Stated Complaint: RIB PAIN History of Present Illness The patient is a 42 year old female who presents to the Emergency Room with complaints of right lateral rib pain 4 days. The patient states she was watching TV and the pain spontaneously began. She denies any obvious injury, but is concerned that she may have pulled or strained a muscle. She denies any recent illness or coughing. She denies any fever, tachycardia, palpitations, leg swelling, or recent travel. The patient is currently on oral control pills. She is having difficulty getting comfortable, notes a constant, stabbing pain. Sitting on an angle helps minimally, but palpation significantly worsens the symptoms. She has been taking 800 mg ibuprofen infrequently for her symptoms, and states her last dose was overnight, but she continues to have the discomfort at night. She does report some dyspnea with taking a deep breath. She denies any chest pain or pressure. She denies any history of similar symptoms in the past. She denies any dyspnea on exertion. She does not have a personal or family history of blood clots. Review of Systems A complete 10 point review of systems was reviewed with the patient with pertinent positives and negatives as per history of present illness. All else were negative. Past Medical/Surgical History Medical Problems: (1) Acute bilateral low back pain (2) Anxiety (3) Anxiety State Nos (4) Asthma (5) Asthma, Unspecified (6) Bipolar II disorder (7) Chest pain (8) Chest pain, atypical (9) E. coli septicemia (10) Fall (11) Fibromyalgia (12) Gram negative septicemia (13) H/O migraine (14) H/O renal calculi (15) H/O urinary tract infection (16) Head injury (17) History of low back pain (18) Hypothyroidism (19) Migraine Unspecified W/O Intractable Migraine (20) Pancreatitis (21) Pyelonephritis (22) UTI (urinary tract infection) Surgical Problems: (1) S/P cholecystectomy Family History Diabetes mellitus FH: cancer FH: heart disease FH: lung disease FHx: gallbladder disease Kidney disease or stones Social History Smoking Status: Never Smoker Alcohol Use: none Drug Use: none Marital Status: single Housing Status: lives with family Occupation Status: disabled Current/Historical Medications Scheduled Control Pills ( Control Pills), 1 TAB PO QAM Cyanocobalamin (Vitamin B-12), 1,000 MCG PO QAM Cyclobenzaprine Hcl (Flexeril), 10 MG PO HS Dicyclomine HCl (Dicyclomine HCl), 20 MG PO QID Docusate Sodium (Docusate Sodium), 100 MG PO QAM Ferrous Sulfate (Ferrous Sulfate), 325 MG PO QDB Fluticasone Propionate (Inhala (Flovent Diskus), 1 PUFF INH BID Gabapentin (Gabapentin), 600 MG PO TID Hydroxyzine Pamoate (Vistaril), 25 MG PO HS Hydroxyzine Pamoate (Vistaril), 50 MG PO HS Lamotrigine (Lamictal), 200 MG PO BID Levothyroxine Sodium (Levothyroxine Sodium), 50 MCG PO QAM Loratadine (Claritin), 10 MG PO QAM Meloxicam (Mobic), 15 MG PO DAILY Ondasetron Odt (Zofran Odt), 4 MG SL Q6H Pantoprazole (Pantoprazole Sodium), 40 MG PO QAM Prazosin Hcl (Minipress), 4 MG PO HS Sulfa/Trimethoprim (Bactrim Ds 800MG/160MG), 1 TAB PO BID Topiramate (Topamax), 200 MG PO BID Venlafaxine Hcl (Effexor Xr), 150 MG PO QAM Scheduled PRN Albuterol Sulfate (Proair Respiclick), 2 PUFFS INH Q4H PRN for Cough/Shortness Of Breath Epinephrine (Epipen), 0.3 MG IM UD PRN for ALLERGIC REACTION Fluticasone Propionate (Fluticasone Propionate), 2 SPRAYS JERRY QAM PRN for Nasal Congestion Ipratropium-Albuterol (Duoneb), 1 TREATMENT INH Q4H PRN for SOB/Wheezing Lidocaine (Lidocaine), 1 PATCH TD QD PRN for Pain Mupirocin 2% (Bactroban 2%), 1 APPLN TOP UD PRN for Skin Impairment Rizatriptan Benzoate (Rizatriptan Benzoate), 10 MG PO UD PRN for Migraine Physical Exam Vital Signs Date Time Temp Pulse Resp B/P (MAP) Pulse Ox O2 Delivery O2 Flow Rate FiO2 08/19/17 17:40 68 18 125/67 94 Room Air 08/19/17 15:40 72 18 115/76 94 Room Air 08/19/17 13:46 36.6 95 18 130/85 94 Room Air Physical Exam VITALS: Vitals are noted on the nurse's note and reviewed by myself. Vital signs stable. GENERAL: This is a 42-year-old obese white female, in no acute distress, nondiaphoretic, well-developed well-nourished. SKIN: The skin was without rashes, erythema, edema, or bruising. There is no tenting of the skin. Capillary reflex less than 2 seconds. HEAD: Normocephalic atraumatic. EARS: External auditory canals clear, tympanic membranes pearly maddox without erythema or effusion bilaterally. EYES: Pupils equal round and reactive to light and accommodation. Conjunctivae without injection, sclerae without icterus. Extraocular movements intact. NOSE: Patent, turbinates without inflammation or discharge. No sinus tenderness. MOUTH: Mucous membranes moist. Tonsils are not enlarged. Pharynx without erythema or exudate. Uvula midline. Airway patent. Tongue does not deviate. NECK: Supple without nuchal rigidity. No lymphadenopathy. No thyromegaly. Cervical spine is nontender. No JVD. HEART: Regular rate and rhythm without murmurs gallops or rubs. LUNGS: Clear to auscultation bilaterally without wheezes, rales or rhonchi. No dullness to percussion. No retractions or accessory muscle use. ABDOMEN: Positive bowel sounds x 4. Normal tympanic percussion. Soft, nontender, without masses or organomegaly. Hankins sign negative. No guarding or rebound tenderness. MUSCULOSKELETAL: Significant tenderness over the right lateral ribs. There is no erythema, rash, or contusion noted. No other muscle atrophy, erythema, or edema noted. Full range of motion without joint tenderness in all extremities. No tenderness to palpation except as noted. Normal gait. Strength 5/5 throughout. NEURO: Patient was alert and oriented to person place and time. Normal sensation to light and sharp touch. Deep tendon reflexes 2+ throughout. No focal neurological deficits. Medical Decision & Procedures ER Provider Diagnostic Interpretation: R RIBS UNILATERAL WITH PA CHEST CLINICAL HISTORY: 42 years-old Female presenting with RIGHT LATERAL RIB PAIN. TECHNIQUE: Frontal and oblique views of the right ribs as well as PA view of the chest were obtained. COMPARISON: 08/09/2017. FINDINGS: Cardiomediastinal silhouette normal. Lungs and pleural spaces clear. Cholecystectomy clips noted. No displaced right rib fracture. IMPRESSION: 1. No acute cardiopulmonary disease. 2. No displaced right rib fracture. Electronically signed by: Dennis Hawk M.D. 08/19/2017 3:47 PM Dictated Date/Time: 08/19/2017 3:45 PM Laboratory Results 08/19/17 15:39 Red Blood Count 4.37, Mean Corpuscular Volume 88.6, Mean Corpuscular Hemoglobin 30.7, Mean Corpuscular Hemoglobin Concent 34.6, Mean Platelet Volume 8.8, Neutrophils (%) (Auto) 60.0, Lymphocytes (%) (Auto) 31.6, Monocytes (%) (Auto) 6.1, Eosinophils (%) (Auto) 1.3, Basophils (%) (Auto) 0.4, Neutrophils # (Auto) 5.65, Lymphocytes # (Auto) 2.97, Monocytes # (Auto) 0.57, Eosinophils # (Auto) 0.12, Basophils # (Auto) 0.04 08/19/17 15:33 Test 08/19/17 15:33 08/19/17 15:39 Anion Gap 5.0 mmol/L (3-11) Est Creatinine Clear Calc Drug Dose 82.6 ml/min Estimated GFR () 80.3 Estimated GFR (Non- 69.3 BUN/Creatinine Ratio 13.3 (10-20) Calcium Level 8.6 mg/dl (8.5-10.1) White Blood Count 9.41 K/uL (4.8-10.8) Red Blood Count 4.37 M/uL (4.2-5.4) Hemoglobin 13.4 g/dL (12.0-16.0) Hematocrit 38.7 % (37-47) Mean Corpuscular Volume 88.6 fL (80-100) Mean Corpuscular Hemoglobin 30.7 pg (25-34) Mean Corpuscular Hemoglobin Concent 34.6 g/dl (32-36) Platelet Count 350 K/uL (130-400) Mean Platelet Volume 8.8 fL (7.4-10.4) Neutrophils (%) (Auto) 60.0 % Lymphocytes (%) (Auto) 31.6 % Monocytes (%) (Auto) 6.1 % Eosinophils (%) (Auto) 1.3 % Basophils (%) (Auto) 0.4 % Neutrophils # (Auto) 5.65 K/uL (1.4-6.5) Lymphocytes # (Auto) 2.97 K/uL (1.2-3.4) Monocytes # (Auto) 0.57 K/uL (0.11-0.59) Eosinophils # (Auto) 0.12 K/uL (0-0.5) Basophils # (Auto) 0.04 K/uL (0-0.2) RDW Standard Deviation 39.8 fL (36.4-46.3) RDW Coefficient of Variation 12.5 % (11.5-14.5) Immature Granulocyte % (Auto) 0.6 % Immature Granulocyte # (Auto) 0.06 K/uL (0.00-0.02) D-Dimer 190 ug/L FEU (0-500) Medications Administered Medications (Trade) Dose Ordered Sig/Shelli Route Start Time Stop Time Status Last Admin Dose Admin Lidocaine (Lidoderm Patch 5%) 1 patch NOW STAT TD 08/19/17 14:39 08/19/17 14:41 DC 08/19/17 14:39 1 PATCH ED Course Patient was seen and evaluated as above. Lidoderm patch applied to the ribs for discomfort. X-ray performed and reviewed by myself and radiologist as above. IV access obtained, labs drawn. I updated the patient multiple times while here in the ED. I discussed findings of labs in the ED. The patient is feeling better since application of Lidoderm patch. Discharge instructions reviewed. The patient was discharged home in good condition. Medical Decision This is a 42-year-old female patient presents emergency department today complaining of right lateral rib pain. She does report some dyspnea which she describes as pain in the ribs with taking a deep breath. She does not have any known injury, and she has not been sick or coughing recently. X-ray of the ribs was performed and negative. D-dimer and basic labs were performed due to the inability to rule out the risk of PE with the PERC score, as the patient is on oral control pills and is slightly tachycardic. D-dimer, coagulation studies, and CBC/PRP were negative for acute findings. The patient was treated with a Lidoderm patch here in the emergency department and notes improvement in her symptoms. She will be discharged home with Lidoderm patches and was encouraged to follow-up outpatient with her PCP. The patient does already have pain medication and muscle relaxers at home. She was encouraged to use these medications as prescribed. All questions were answered to patient's satisfaction prior to discharge. Etiologies such as cardiac ischemia, aortic dissection, pulmonary embolism, pneumonia, pneumothorax, musculoskeletal, infections, gastrointestinal, as well as others were entertained. The chart was completed utilizing [employer] Speech voice recognition software. Grammatical errors, random word insertions, pronoun errors, and incomplete sentences are an occasional consequence of this system due to software limitations, ambient noise, and hardware issues. Any formal questions or concerns about the content, text, or information contained within the body of this dictation should be directly addressed to the provider for clarification. Medication Reconcilliation Current Medication List: was personally reviewed by me Blood Pressure Screening Patient's blood pressure: Normal blood pressure Impression Primary Impression: Chest wall pain Departure Information Dispostion Home / Self-Care Condition GOOD Prescriptions Lidocaine (LIDOCAINE) 5 % Pad 1 PATCH TD QD Y for Pain, #30 PATCH Apply one patch q24 hours. Patch must be removed after 12 hours, followed by 12 hours without a patch. Prov: Azeb Finley, YONATHAN 08/19/17 Referrals Dennis Khan M.D. (PCP) Patient Instructions ED Contusion Chest Wall, My [facility] Additional Instructions You have been treated in the Emergency Department for Rib Pain. X-ray did not reveal any acute fracture. D-dimer testing and labs were normal, and I do not suspect clot. Use Lidoderm patches as directed for pain. You should remove the current patch after 12 hours (0300 am) and should wait at least 12 hours prior to applying a new patch. For pain control, you can use the following usgf-aef-soxqcto medicines (if >12 yo): Ibuprofen(Motrin, Advil) may be used for fever or pain. Use 600mg every six hours as needed. Take with food. Avoid using more than 2400mg in a 24 hour period. Do not use 2400mg per day for more than three consecutive days without physician direction. Prolonged inappropriate use can lead to stomach upset or ulcers. (AND/OR) Acetaminophen(Tylenol) may be used for fever or pain. Use 1000mg every six hours as needed. Avoid using more than 3000mg in a 24 hour period. If this is an acute injury, ice can be applied to the area of pain for the first 3 days to help decrease pain and inflammation. After the first 3 days, a heating pad can be used over the area for continued soothing relief. You should schedule a follow-up appointment in 2-3 days with your Primary Care Provider for further evaluation and treatment of your rib pain. Hugging a pilliow while coughing or sneezing can help to reduce your pain. Be sure to continue taking occasional deep breaths to help expand your lungs to reduce the risk of developing pneumonia. Return to the Emergency Department if your current symptoms worsen despite treatment course outlined above, or if you develop any of the following symptoms : intractable pain despite aforementioned treatment course, loss of control of your bowel or bladder, numbness or tingling in your groin, or development of a fever.
--- NOTE | 2017-08-19 15:48 | DIAGNOSTIC IMAGING REPORT ---
R RIBS UNILATERAL WITH PA CHEST CLINICAL HISTORY: 42 years-old Female presenting with RIGHT LATERAL RIB PAIN. TECHNIQUE: Frontal and oblique views of the right ribs as well as PA view of the chest were obtained. COMPARISON: 08/09/2017. FINDINGS: Cardiomediastinal silhouette normal. Lungs and pleural spaces clear. Cholecystectomy clips noted. No displaced right rib fracture. IMPRESSION: 1. No acute cardiopulmonary disease. 2. No displaced right rib fracture. Electronically signed by: Dennis Hawk M.D. 08/19/2017 3:47 PM Dictated Date/Time: 08/19/2017 3:45 PM
[2017-08-19 16:41] LABS: BASO % 0.4 %; BASO ABS # 0.04 K/uL (0-0.2); EOS % 1.3 %; EOS ABS # 0.12 K/uL (0-0.5); HEMATOCRIT 38.7 % (37-47); HEMOGLOBIN 13.4 g/dL (12.0-16.0); LYMPH % 31.6 %; LYMPH ABS # 2.97 K/uL (1.2-3.4); MEAN CELL VOLUME 88.6 fL (80-100); MEAN CORPUSCULAR HEMOGLOBIN 30.7 pg (25-34); MEAN CORPUSCULAR HGB CONC 34.6 g/dl (32-36); MEAN PLATELET VOLUME 8.8 fL (7.4-10.4); MONO % 6.1 %; MONO ABS # 0.57 K/uL (0.11-0.59); NEUT ABS # 5.65 K/uL (1.4-6.5); PLATELET COUNT 350 K/uL (130-400); RED CELL DISTRIBUTION WIDTH CV 12.5 % (11.5-14.5); RED CELL DISTRIBUTION WIDTH SD 39.8 fL (36.4-46.3); WHITE BLOOD COUNT 9.41 K/uL (4.8-10.8)
[2017-08-19 16:42] LABS: IG# 0.06 K/uL (0.00-0.02)
[2017-08-19 16:59] LABS: CALCIUM 8.6 mg/dl (8.5-10.1); CREATININE 0.99 mg/dl (0.60-1.20); POTASSIUM 3.8 mmol/L (3.5-5.1)
[2017-08-19 17:40] VITALS: BP 125/67; PULSE 68; O2SAT 94
[2017-08-19] MEDS ORDERED: LIDO1PAD2 TD (17:40)
== END 2017-08-19 17:55 | disposition home or self-care (01) ==
LOC: C.EDB 13:44 → C.EDD 17:55
DX: R07.89 Other chest pain (principal); R00.0 Tachycardia, unspecified; Z79.3 Long term (current) use of hormonal contraceptives; E66.9 Obesity, unspecified; J45.909 Unspecified asthma, uncomplicated; M79.7 Fibromyalgia; F41.9 Anxiety disorder, unspecified; F31.81 Bipolar II disorder; E03.9 Hypothyroidism, unspecified; G43.909 Migraine, unspecified, not intractable, without status migrainosus

== ENCOUNTER 2018-06-19 14:05 | Observation (INO) ==
[2018-06-19] MEDS ORDERED: ASPIRIN CHEW 324 MG PO STA (14:16)
[2018-06-19] MEDS ORDERED: SODIUM CHLORIDE 0.9% 1000ML 1,000 ML IV SCH (14:30)
[2018-06-19 15:08] LABS: Basophils # (auto) 0.06 K/uL (0-0.2); Basophils % (auto) 0.5 %; Eosinophils % (auto) 1.5 %; Hematocrit (blood only) 38.2 % (37-47); Hemoglobin 13.1 g/dL (12.0-16.0); Immature Granulocytes # (auto) 0.08 K/uL (0.00-0.02); Immature Granulocytes % (auto) 0.6 %; Lymphocytes # (auto) 4.16 K/uL (1.2-3.4); Lymphocytes % (auto) 31.4 %; Mean Corpuscular Hgb Conc 34.3 g/dL (32-36); Mean Corpuscular Volume 89.5 fL (80-100); Mean Platelet Volume 8.8 fL (7.4-10.4); Monocytes # (auto) 0.52 K/uL (0.11-0.59); Monocytes % (auto) 3.9 %; Neutrophils # (auto) 8.21 K/uL (1.4-6.5); Neutrophils % (auto) 62.1 %; Platelet Count 304 K/uL (130-400); RDW Coefficient of Variation 13.1 % (11.5-14.5); RDW Standard Deviation 42.6 fL (36.4-46.3); Red Blood Count 4.27 M/uL (4.2-5.4); White Blood Count 13.23 K/uL (4.8-10.8)
[2018-06-19] MEDS ORDERED: ASPIRIN 81 MG CHEW ONE (15:22)
[2018-06-19 15:35] LABS: Partial Thromboplastin Ratio 0.8
[2018-06-19 16:06] LABS: D Dimer 220 ug/L FEU (0-500); Partial Thromboplastin Time 22.2 Seconds (21.0-31.0); Prothrombin Time 10.6 Seconds (9.0-12.0)
[2018-06-19 16:07] LABS: BUN Creatinine Ratio 14.7 (10-20); Blood Urea Nitrogen 17 mg/dl (7-18); Carbon Dioxide 24 mmol/L (21-32); Chloride 106 mmol/L (98-107); Est GFR (African American) 66.5; Est GFR (Non-African American) 57.4; Glucose 85 mg/dl (70-99); Potassium 3.3 mmol/L (3.5-5.1); Sodium 137 mmol/L (136-145)
[2018-06-19 16:11] LABS: Troponin I < 0.015 ng/ml (0-0.045)
[2018-06-19 16:19] LABS: Influenza A virus by PCR Neg for Influ A (Neg); Influenza B virus by PCR Neg for Influ B (Neg)
--- NOTE | 2018-06-19 17:11 | XRay Report ---
XR chest 2V routine HISTORY: 43 years-old Female Chest Pain acute atypical chest pain with shortness of breath COMPARISON: Acute abdominal series radiographs 05/25/2017 TECHNIQUE: PA and lateral views of the chest FINDINGS: Cardiac mediastinal and hilar silhouettes are within normal limits. No pneumothorax, large pleural ef fusion, focal airspace consolidation or overt pulmonary edema. Mild blunting of the posterior costoph renic angles secondary to trace effusions or atelectasis. Bones of the chest appear grossly intact. C holecystectomy clips noted. Moderate to large volume of formed colonic stool noted about the upper ab domen. IMPRESSION: Mild blunting of the posterior costophrenic angles may be secondary to atelectasis or tra ce effusions. The above report was generated using voice recognition software. It may contain grammatical, syntax o r spelling errors. Electronically signed by: Zachary Rose M.D. 06/19/2018 5:10 PM
[2018-06-19 19:24] LABS: Troponin I < 0.015 ng/ml (0-0.045)
--- NOTE | 2018-06-19 19:50 | History & Physical Report ---
Date of Service June 19, 2018 Assessment & Plan (1) Chest pain: Chest Pain: R/O ACS Risk factors: Obesity, Family H/O unknown heart disease DD:Constochondritis, GERD, PUD, Anxiety/Panic disorder Initial troponin:Negative X 2 EKG shows: No significant change from prior CXR:Mild blunting of the posterior costophrenic angles may be secondary to atelectasis or trace effusions. Trend serial cardiac enzymes, repeat EKG, A1C, fasting lipid panel in AM Check ECHO for wall motion abnormality Start Aspirin 81 mg daily Oxygen PRN NPO after midnight Consider Cardiology consult Hypokalemia Replace and monitor electrolytes Asthma Continue home inhalers No signs of exacerbation Bipolar disorder PTSD fibromyalgia Continue home meds Follows with Psychiatrist Hypothyroidism Check TSH Continue levothyroxine Migraines PCOS Continue home meds Denies headache RAJEEV Not on CPAP GERD Continue PPI IBS Continue home meds DVT Px: SCDs Code Status: Full Code Disposition: Expect to discharge home when stable History of Present Illness Chief Complaint: Chest Pain Primary Care Provider: Dennis Khan Patient is a 43 yr female with history of asthma, bipolar disorder, hypothyroidism, PTSD, migraines, PCOS, RAJEEV, fibromyalgia, GERD, nephrolithiasis, IBS and other medical problems presents with history of chest pain associated with nausea and vomiting, palpitations, dizziness, dry cough and shortness of breath on exertion. Patient states having chest tightness, shortness of breath on exertion since 4 days duration. She reports chest pain to be retrosternal, nonradiating, intermittent, does not worsen with exertion, increases with deep breathing, associated with tenderness on palpation. She describes the pain as discomfort. She states having one episode of nausea vomiting today morning. Reports having a panic attack yesterday while at home. Reports chronic abdominal pain predominantly located on the right upper and lower quadrants which she attributes to IBS. Initial troponin is negative. EKG showed no significant change from prior. Denies any history of orthopnea, PND, pedal edema, wheezing, fever, chills, headache, change in vision, blood in stools, diarrhea, dysuria. Allergies Allergy/AdvReac Type Severity Reaction Status Date / Time bee venom protein (honey bee) Allergy Severe ANAPHYLAXIS Verified 05/25/18 17:08 morphine AdvReac Intermediate HALLUCINATI Verified 05/25/18 17:08 ONS Home Medications Home Medications Medication Instructions Recorded Confirmed Type Breo Ellipta 1 inh INHALATION QAM 01/10/18 06/19/18 History albuterol sulfate 2.5 mg INHALATION Q4H PRN 01/10/18 06/19/18 History albuterol sulfate [ProAir HFA] 2 puff INHALATION Q4H PRN 01/10/18 06/19/18 History cetirizine [Zyrtec] 10 mg PO QAM 01/10/18 06/19/18 History cyanocobalamin (vitamin B-12) 1,000 mcg PO QAM 01/10/18 06/19/18 History [Vitamin B-12] cyclobenzaprine 10 mg PO AMHS 01/10/18 06/19/18 History dicyclomine 20 mg PO AMHS 01/10/18 06/19/18 History docusate sodium [Colace] 100 mg PO QAM 01/10/18 06/19/18 History epinephrine [EpiPen] 0.3 mg IM DIRECTED PRN 01/10/18 06/19/18 History ferrous sulfate [Feosol] 325 mg PO QAM 01/10/18 06/19/18 History fluticasone [Flonase Allergy 2 spray INTRANASAL DAILY PRN 01/10/18 06/19/18 History Relief] gabapentin 800 mg PO TID 01/10/18 06/19/18 History hydroxyzine pamoate [Vistaril] 50 mg PO HS 01/10/18 06/19/18 History lamotrigine [Lamictal] 200 mg PO QAM 01/10/18 06/19/18 History levothyroxine 50 mcg PO QAM 01/10/18 06/19/18 History meloxicam [Mobic] 15 mg PO QAM 01/10/18 06/19/18 History norethindrone-e.estradiol-iron 1 tab PO DAILY 01/10/18 06/19/18 History pantoprazole [Protonix] 40 mg PO QAM 01/10/18 06/19/18 History rizatriptan [Maxalt] 10 mg PO DIRECTED PRN 01/10/18 06/19/18 History venlafaxine 300 mg PO QAM 01/21/18 06/19/18 History topiramate [Topamax] 200 mg PO [facility] 05/25/18 06/19/18 History amitriptyline 25 mg PO HS 06/19/18 06/19/18 History duloxetine [Cymbalta] 30 mg PO QAM 06/19/18 06/19/18 History hydroxyzine pamoate [Vistaril] 25 mg PO HS 06/19/18 06/19/18 History prazosin [Minipress] 4 mg PO HS 06/19/18 06/19/18 History Past Med/Surg History Medical History Hypothyroidism Obesity GERD (gastroesophageal reflux disease) Migraine Bipolar 1 disorder Anxiety PTSD (post-traumatic stress disorder) Fibromyalgia Asthma USES PRN INH APPROX 1-2 X MONTHLY; DENIES RECENT EXAC Kidney stone Peripheral neuropathy Pyelonephritis PCO (polycystic ovaries) Anemia Chest pain, atypical Closed head injury R/T FALL IN 2017; REPORTS CONCUSSION E. coli septicemia Fibroadenoma of breast RT Hx of prolonged Q-T interval on ECG PER PT'S MEDICAL RECORD FROM PCP OFFICE. Irregular menses Poor historian Sleep apnea NO CPAP Surgical History Hx of cholecystectomy History of ankle surgery RT Hx of knee surgery RT Hx of colonoscopy History of cystoscopy H/O lithotripsy History of breast biopsy RT Status post labral repair of shoulder RT Family History Father Heart disease Other No significant family history Social History Preferred Language: Greek Beliefs That Will Affect Care: Advent marital status: Single Current Living Situation: Parent Current Living Situation Comment: At home with mother current occupational status: disabled Feels Safe at Home: Yes Smoking Status: Never smoker Hx Alcohol Use: No Hx Substance Use: No Review of Systems All systems reviewed & are unremarkable except as noted in HPI & below Physical Exam Vital Signs (Past 24 Hours): Last Vital Signs Temp 37.1 C 06/19/18 14:14 Pulse 85 06/19/18 19:33 Resp 18 06/19/18 19:33 BP 126/94 06/19/18 19:33 Pulse Ox 96 06/19/18 19:33 Physical Exam: Physical Exam: Vitals signs as noted above General Appearance:Obese, no apparent distress Head: normocephalic, Atraumatic Eyes: normal inspection, EOMI Neck: supple, Trachea midline Respiratory/Chest: Decreased breath sounds, CTA Chest: Tenderess epigastric and across the chest Cardiovascular: S1, S2, No murmur, +Tachycardia Abdomen/GI:Soft, Mild RUQ/RLQ tender (Chronic) , Bowel sounds present Extremities/Musculoskelatal:normal inspection, no edema Neurologic/Psych:AAOX3, grossly no focal neurological deficits Skin: normal color, warm Results & Data Laboratory Results Short CBC 06/19/18 Range/Units 14:55 WBC 13.23 H (4.8-10.8) K/uL Hgb 13.1 (12.0-16.0) g/dL Hct 38.2 (37-47) % Plt Count 304 (130-400) K/uL BMP 06/19/18 14:55 Sodium 137 Potassium 3.3 L Chloride 106 Carbon Dioxide 24 BUN 17 Creatinine 1.15 Glucose 85 Calcium 10.0 Cardiac Enzymes 06/19/18 06/19/18 Range/Units 14:55 18:33 Troponin I < 0.015 < 0.015 (0-0.045) ng/ml Diagnostic Findings CXR: Mild blunting of the posterior costophrenic angles may be secondary to atelectasis or trace effusions. ECG Additional Comments: EKG: NSR, LAD, Poor R wave progression, QTC:447 on my interpretation (1) Chest pain Chest pain type: unspecified Qualified Code(s): R07.9 - Chest pain, unspecified
[2018-06-19] MEDS ORDERED: ACETAMINOPHEN 325 MG TAB PO PRN (20:22)
[2018-06-19] MEDS ORDERED: ONDANSETRON INJ 2 MG/ML 2 ML VIAL IV PRN (20:22)
[2018-06-19] MEDS ORDERED: POLYETHYLENE (MIRALAX) 17 GM PACK PO PRN (20:22)
[2018-06-19] MEDS ORDERED: NITROGLYCERIN SL 0.4 MG/TAB TAB SL PRN (20:22)
[2018-06-19] MEDS ORDERED: ALBUTEROL 0.083% NEBU SOLN 3 ML VIAL INH PRN (20:22)
[2018-06-19] MEDS ORDERED: POTASSIUM CHLORIDE 10 MEQ TABCR PO STA (20:22)
--- NOTE | 2018-06-19 20:43 | Emergency Department Note ---
Entered by Enio Hung acting as a scribe for Ezequiel Alvarenga History of Present Illness General Chief complaint: Shortness of Breath/Dyspnea Stated complaint: sob Time Seen by Provider: 06/19/18 14:07 Source: patient Mode of arrival: ambulatory History of Present Illness Provider complaint: Shortness of Breath/Dyspnea Onset (ago): hour(s) greater than 10 Location: chest Quality: + other (chest pain ) Associated symptoms: + shortness of breath; no nausea/vomiting Treatments prior to arrival: none Patient is a 43 year old female who presents herself to the ER with complains of chest pain which started last night. She states she does have accompanied symptoms of shortness of breath, pressure in chest and coughs since last night. She states she feels that her heart is racing and that she may pass out. Earlier in the day she notes going to bathroom and coughing up some blood in her mucous. She states heart disease does run in her family and she notes not having being place in the ICU in the past. She did not do any treatments prior to arrival. She denies nausea, vomiting and diarrhea. Home Medications Home Medications Medication Instructions Recorded Confirmed Type Breo Ellipta 1 inh INHALATION QAM 01/10/18 06/19/18 History albuterol sulfate 2.5 mg INHALATION Q4H PRN 01/10/18 06/19/18 History albuterol sulfate [ProAir HFA] 2 puff INHALATION Q4H PRN 01/10/18 06/19/18 History cetirizine [Zyrtec] 10 mg PO QAM 01/10/18 06/19/18 History cyanocobalamin (vitamin B-12) 1,000 mcg PO QAM 01/10/18 06/19/18 History [Vitamin B-12] cyclobenzaprine 10 mg PO AMHS 01/10/18 06/19/18 History dicyclomine 20 mg PO AMHS 01/10/18 06/19/18 History docusate sodium [Colace] 100 mg PO QAM 01/10/18 06/19/18 History epinephrine [EpiPen] 0.3 mg IM DIRECTED PRN 01/10/18 06/19/18 History ferrous sulfate [Feosol] 325 mg PO QAM 01/10/18 06/19/18 History fluticasone [Flonase Allergy 2 spray INTRANASAL DAILY PRN 01/10/18 06/19/18 History Relief] gabapentin 800 mg PO TID 01/10/18 06/19/18 History hydroxyzine pamoate [Vistaril] 50 mg PO HS 01/10/18 06/19/18 History lamotrigine [Lamictal] 200 mg PO QAM 01/10/18 06/19/18 History levothyroxine 50 mcg PO QAM 01/10/18 06/19/18 History meloxicam [Mobic] 15 mg PO QAM 01/10/18 06/19/18 History norethindrone-e.estradiol-iron 1 tab PO DAILY 01/10/18 06/19/18 History pantoprazole [Protonix] 40 mg PO QAM 01/10/18 06/19/18 History rizatriptan [Maxalt] 10 mg PO DIRECTED PRN 01/10/18 06/19/18 History venlafaxine 300 mg PO QAM 01/21/18 06/19/18 History topiramate [Topamax] 200 mg PO AMHS 05/25/18 06/19/18 History amitriptyline 25 mg PO HS 06/19/18 06/19/18 History duloxetine [Cymbalta] 30 mg PO QAM 06/19/18 06/19/18 History hydroxyzine pamoate [Vistaril] 25 mg PO HS 06/19/18 06/19/18 History prazosin [Minipress] 4 mg PO HS 06/19/18 06/19/18 History Allergies Allergy/AdvReac Type Severity Reaction Status Date / Time bee venom protein (honey bee) Allergy Severe ANAPHYLAXIS Verified 05/25/18 17:08 morphine AdvReac Intermediate HALLUCINATI Verified 05/25/18 17:08 ONS Past Med/Surg History Medical History Hypothyroidism Obesity GERD (gastroesophageal reflux disease) Migraine Bipolar 1 disorder Anxiety PTSD (post-traumatic stress disorder) Fibromyalgia Asthma USES PRN INH APPROX 1-2 X MONTHLY; DENIES RECENT EXAC Kidney stone Peripheral neuropathy Pyelonephritis PCO (polycystic ovaries) Anemia Chest pain, atypical Closed head injury R/T FALL IN 2017; REPORTS CONCUSSION E. coli septicemia Fibroadenoma of breast RT Hx of prolonged Q-T interval on ECG PER PT'S MEDICAL RECORD FROM PCP OFFICE. Irregular menses Poor historian Sleep apnea NO CPAP Surgical History Hx of cholecystectomy History of ankle surgery RT Hx of knee surgery RT Hx of colonoscopy History of cystoscopy H/O lithotripsy History of breast biopsy RT Status post labral repair of shoulder RT Family History Father Heart disease Other No significant family history Social History Preferred Language: [place] Beliefs That Will Affect Care: Roman Catholic marital status: Single Current Living Situation: Parent Current Living Situation Comment: At home with mother current occupational status: disabled Feels Safe at Home: Yes Smoking Status: Never smoker Hx Alcohol Use: No Hx Substance Use: No Review of Systems See HPI for pertinent positives & negatives. and A total of 10 systems reviewed and were otherwise negative Physical Exam Vital Signs Vital Signs - 24 hr 06/19/18 14:14 06/19/18 14:16 06/19/18 15:28 Temperature 37.1 C Temperature Source Oral Sepsis Recent Fever Within 48 Hours No Sepsis New/Unexplained Change in Mental Status No Sepsis Action Taken by Nursing No Action Required Pulse Rate 94 H Pulse Rate [Apical] 105 H Pulse Rhythm [Apical] Regular Pulse Strength [Apical] Normal Respiratory Rate 20 18 Respiratory Effort / Characteristics Non-Labored Spontaneous Non-Labored Spontaneous Respiratory Depth Normal Normal Respiratory Pattern Regular Regular Blood Pressure 133/89 Blood Pressure [Left Arm] 132/78 Blood Pressure Mean 103 Blood Pressure Mean [Left Arm] 96 Blood Pressure Position [Left Arm] Sitting Pulse Oximetry 95 95 Oxygen Delivery Method Room Air Room Air Room Air Oxygen Flow Rate 06/19/18 15:30 06/19/18 16:45 06/19/18 18:00 Temperature Temperature Source Sepsis Recent Fever Within 48 Hours Sepsis New/Unexplained Change in Mental Status Sepsis Action Taken by Nursing Pulse Rate Pulse Rate [Apical] 97 H Pulse Rhythm [Apical] Regular Regular Pulse Strength [Apical] Normal Normal Respiratory Rate 20 20 Respiratory Effort / Characteristics Non-Labored Spontaneous Non-Labored Spontaneous Non-Labored Spontaneous Respiratory Depth Normal Normal Normal Respiratory Pattern Regular Regular Regular Blood Pressure Blood Pressure [Left Arm] 153/85 H Blood Pressure Mean Blood Pressure Mean [Left Arm] 107 Blood Pressure Position [Left Arm] Sitting Pulse Oximetry 98 98 Oxygen Delivery Method Room Air Room Air Room Air Oxygen Flow Rate 95 06/19/18 19:33 06/19/18 20:03 Temperature Temperature Source Sepsis Recent Fever Within 48 Hours Sepsis New/Unexplained Change in Mental Status Sepsis Action Taken by Nursing Pulse Rate 80 Pulse Rate [Apical] 85 Pulse Rhythm [Apical] Regular Pulse Strength [Apical] Normal Respiratory Rate 18 16 Respiratory Effort / Characteristics Non-Labored Respiratory Depth Normal Respiratory Pattern Regular Blood Pressure 126/87 Blood Pressure [Left Arm] 126/94 Blood Pressure Mean Blood Pressure Mean [Left Arm] 104 Blood Pressure Position [Left Arm] Lying Pulse Oximetry 96 96 Oxygen Delivery Method Room Air Room Air Oxygen Flow Rate GENERAL: She is oriented to person, place, and time. She appears well-developed and well-nourished. She does not appear distressed. HENT: Exam performed. \u00b7 Head: Normocephalic and atraumatic. \u00b7 Right Ear: External ear normal. No mastoid tenderness. \u00b7 Left Ear: External ear normal. No mastoid tenderness. \u00b7 Mouth/Throat: The oropharynx is clear and moist. No trismus in the jaw. No dental abscesses or uvula swelling. No oropharyngeal exudate or tonsillar abscesses. EYES: Conjunctivae and EOM are normal. Pupils are equal, round, and reactive to light. Right eye exhibits no discharge. Left eye exhibits no discharge. No scleral icterus. NECK: Normal range of motion. Neck supple. No JVD present. No spinous process tenderness present. No carotid bruit present. No rigidity. No tracheal deviation and normal range of motion present. No Brudzinski's sign and no Kernig's sign noted. CV: Normal rate, regular rhythm, normal heart sounds and intact distal pulses. There is no peripheral edema. Palpable radial pulses bue. PULM/CHEST: Effort normal and breath sounds normal. No respiratory distress. No stridor. She has no wheezes. She has no rales. Chest Wall: She exhibits no tenderness. ABD: The abdomen is soft. Bowel sounds are normal. She has no distension. No mass is present. There is no tenderness. There is no rebound, no guarding, no Hankins's sign and no tenderness at McBurney's point. Rovsig negative MUSC/SKEL: Normal range of motion. There is no peripheral edema, tenderness or deformity. LYMPH: No cervical adenopathy. NEURO: She is alert and oriented to person, place, and time. She has normal strength. No cranial nerve deficit or sensory deficit. Coordination and gait normal. GCS eye subscore is 4. GCS verbal subscore is 5. GCS motor subscore is 6. cerbellar tests wnl. SKIN: Skin is warm and dry. She is not diaphoretic. PSYCH: She has a normal mood and affect. Her behavior is normal. Judgment and thought content normal. Course 1412: Past medical records reviewed. The patient was evaluated in room D02A, and a complete history and physical examination were performed. 1727: Vital signs stable. Labs and imaging within normal limits including negative troponin, chest x-ray, and d-dimer. Patient was offered outpatient follow-up with cardiology or inpatient observation. Patient states she prefers inpatient observation given her family's long cardiac history. I spoke with Eladia Thomas regarding the patient's condition. Patients's vital signs are stable. Patient offered in patient and out patient care and patient chose in patient work up. I then spoke to Dr. Escalera who will admit the patient under her care. Administered Medications Discontinued Medications Aspirin (Aspirin) 324 mg PO NOW STA Stop: 06/19/18 14:17 Last Admin: 06/19/18 15:24 Dose: Not Given Documented by: [id number] Aspirin (Aspirin Chew) Confirm Administered Dose 324 mg .ROUTE .STK-MED ONE Stop: 06/19/18 15:23 Last Admin: 06/19/18 15:23 Dose: 324 mg Documented by: [id number] Sodium Chloride (Nss 1000ml) 1,000 mls @ 999 mls/hr IV .Q1H1M VALERI Stop: 06/19/18 15:30 Last Infusion: 06/19/18 16:26 Dose: 0 mls/hr Documented by: [id number] Admin: 06/19/18 15:26 Dose: 999 mls/hr Documented by: [id number] Medical Decision Making Medical Records Attestation: I reviewed the patient's medical records. Home Medications Current Medication List: was personally reviewed by me Laboratory Data Attestation: I reviewed the patient's lab results. Result diagrams: 06/19/18 14:55 06/19/18 14:55 Lab Results 06/19/18 06/19/18 06/19/18 Range/Units 14:55 14:55 14:55 WBC 13.23 H (4.8-10.8) K/uL RBC 4.27 (4.2-5.4) M/uL Hgb 13.1 (12.0-16.0) g/dL Hct 38.2 (37-47) % MCV 89.5 (80-100) fL MCH 30.7 (25-34) pg MCHC 34.3 (32-36) g/dL RDW Std Deviation 42.6 (36.4-46.3) fL RDW Coeff of Kailee 13.1 (11.5-14.5) % Plt Count 304 (130-400) K/uL MPV 8.8 (7.4-10.4) fL Immature Gran % (Auto) 0.6 % Neut % (Auto) 62.1 % Lymph % (Auto) 31.4 % Lares % (Auto) 3.9 % Eos % (Auto) 1.5 % Baso % (Auto) 0.5 % Immature Gran # (Auto) 0.08 H (0.00-0.02) K/uL Neut # (Auto) 8.21 H (1.4-6.5) K/uL Lymph # (Auto) 4.16 H (1.2-3.4) K/uL Lares # (Auto) 0.52 (0.11-0.59) K/uL Eos # (Auto) 0.20 (0-0.5) K/uL Baso # (Auto) 0.06 (0-0.2) K/uL PT 10.6 (9.0-12.0) Seconds INR 1.0 (0.9-1.1) APTT 22.2 (21.0-31.0) Seconds PTT Ratio 0.8 D-Dimer 220 (0-500) ug/L FEU Sodium 137 (136-145) mmol/L Potassium 3.3 L (3.5-5.1) mmol/L Chloride 106 (98-107) mmol/L Carbon Dioxide 24 (21-32) mmol/L Anion Gap 7.0 (3-11) BUN 17 (7-18) mg/dl Creatinine 1.15 (0.6-1.2) mg/dl Est Cr Clr Drug Dosing Not Reportable Est GFR ( Amer) 66.5 Est GFR (Non-Af Amer) 57.4 BUN/Creatinine Ratio 14.7 (10-20) Glucose 85 (70-99) mg/dl Calcium 10.0 (8.5-10.1) mg/dl Magnesium (1.8-2.4) mg/dl Troponin I < 0.015 (0-0.045) ng/ml Lipase 126 (73-393) U/L Influenza Type A (PCR) (Neg) Influenza Type B (PCR) (Neg) 06/19/18 06/19/18 Range/Units 15:34 18:33 WBC (4.8-10.8) K/uL RBC (4.2-5.4) M/uL Hgb (12.0-16.0) g/dL Hct (37-47) % MCV (80-100) fL MCH (25-34) pg MCHC (32-36) g/dL RDW Std Deviation (36.4-46.3) fL RDW Coeff of Kailee (11.5-14.5) % Plt Count (130-400) K/uL MPV (7.4-10.4) fL Immature Gran % (Auto) % Neut % (Auto) % Lymph % (Auto) % Lares % (Auto) % Eos % (Auto) % Baso % (Auto) % Immature Gran # (Auto) (0.00-0.02) K/uL Neut # (Auto) (1.4-6.5) K/uL Lymph # (Auto) (1.2-3.4) K/uL Lares # (Auto) (0.11-0.59) K/uL Eos # (Auto) (0-0.5) K/uL Baso # (Auto) (0-0.2) K/uL PT (9.0-12.0) Seconds INR (0.9-1.1) APTT (21.0-31.0) Seconds PTT Ratio D-Dimer (0-500) ug/L FEU Sodium (136-145) mmol/L Potassium (3.5-5.1) mmol/L Chloride (98-107) mmol/L Carbon Dioxide (21-32) mmol/L Anion Gap (3-11) BUN (7-18) mg/dl Creatinine (0.6-1.2) mg/dl Est Cr Clr Drug Dosing Est GFR ( Amer) Est GFR (Non-Af Amer) BUN/Creatinine Ratio (10-20) Glucose (70-99) mg/dl Calcium (8.5-10.1) mg/dl Magnesium 2.0 (1.8-2.4) mg/dl Troponin I < 0.015 (0-0.045) ng/ml Lipase (73-393) U/L Influenza Type A (PCR) Neg for Influ A (Neg) Influenza Type B (PCR) Neg for Influ B (Neg) Imaging Data Attestation: I personally reviewed and interpreted this imaging study as follows: Radiologist's Impression: Radiology results as stated below per my review and the radiologist's interpretation: XR chest 2V routine HISTORY: 43 years-old Female Chest Pain acute atypical chest pain with shortness of breath COMPARISON: Acute abdominal series radiographs 05/25/2017 TECHNIQUE: PA and lateral views of the chest FINDINGS: Cardiac mediastinal and hilar silhouettes are within normal limits. No pneumothorax, large pleural effusion, focal airspace consolidation or overt pulmonary edema. Mild blunting of the posterior costophrenic angles secondary to trace effusions or atelectasis. Bones of the chest appear grossly intact. Cholecystectomy clips noted. Moderate to large volume of formed colonic stool noted about the upper abdomen. IMPRESSION: Mild blunting of the posterior costophrenic angles may be secondary to atelectasis or trace effusions. The above report was generated using voice recognition software. It may contain grammatical, syntax or spelling errors. Electronically signed by: Zachary Rose M.D. 06/19/2018 5:10 PM ECG Data Attestation: I personally reviewed and interpreted this ECG as follows: Indication: chest pain Rate (beats per minute): 94 Rhythm: normal sinus Findings: + other (NE, QRS AND QTC intervals within normal limits ); no ST depression and no ST elevation Blood Pressure Blood Pressure Findings: Normal blood pressure MDM Narrative Vital signs stable. Labs and imaging within normal limits including negative troponin, chest x-ray, and d-dimer. Patient was offered outpatient follow-up with cardiology or inpatient observation. Patient states she prefers inpatient observation given her family's long cardiac history. I spoke with Eladia Thomas regarding the patient's condition. Patients's vital signs are stable. Patient offered in patient and out patient care and patient chose in patient work up. I then spoke to Dr. Escalera who will admit the patient under her care. Impression & Plan Chest pain, Dyspnea Discharge Plan Visit Data *Final* Discharge Date/Time: 06/19/18 20:03 Chief Complaint: Shortness of Breath/Dyspnea Stated Complaint: sob ED Provider: Ezequiel Alvarenga Discharge Problem: Chest pain, Dyspnea Patient Disposition: Admitted As Inpatient Discharge Instructions Interventions: ED Discharge Assessment Last Done: 06/19/18 20:03 Discharge Problem: Chest pain Qualifiers: Chest pain type: unspecified Qualified Code(s): R07.9 - Chest pain, unspecified Dyspnea Qualifiers: Dyspnea type: unspecified Qualified Code(s): R06.00 - Dyspnea, unspecified The scribe's documentation has been prepared under my direction and personally reviewed by me in its entirety. I confirm that the note above accurately reflects all work, treatment, procedures, and medical decision making performed by me.
[2018-06-19] MEDS ORDERED: AMITRIPTYLINE HCL 25 MG TAB PO SCH (21:00)
[2018-06-19] MEDS ORDERED: PRAZOSIN HCL 1 MG CAP PO SCH (21:00)
[2018-06-19] MEDS: CYCLOBENZAPRINE HCL 10 MG TAB PO SCH (21:00)
[2018-06-19] MEDS: TOPIRAMATE 100 MG TAB PO SCH (21:03)
[2018-06-19] MEDS: GABAPENTIN 800 MG TAB PO SCH (21:03)
[2018-06-19] MEDS: DICYCLOMINE HCL 10 MG CAP PO SCH (21:05)
[2018-06-19] MEDS ORDERED: NSS + 20MEQ KCL 20 MEQ/1,000 ML BAG IV ONE (22:00)
[2018-06-20 04:58] LABS: Basophils # (auto) 0.04 K/uL (0-0.2); Basophils % (auto) 0.4 %; Eosinophils # (auto) 0.21 K/uL (0-0.5); Eosinophils % (auto) 2.3 %; Hemoglobin 11.6 g/dL (12.0-16.0); Immature Granulocytes # (auto) 0.08 K/uL (0.00-0.02); Immature Granulocytes % (auto) 0.9 %; Lymphocytes # (auto) 3.28 K/uL (1.2-3.4); Lymphocytes % (auto) 35.2 %; Mean Corpuscular Hgb Conc 34.1 g/dL (32-36); Mean Corpuscular Volume 90.9 fL (80-100); Mean Platelet Volume 9.6 fL (7.4-10.4); Monocytes # (auto) 0.54 K/uL (0.11-0.59); Monocytes % (auto) 5.8 %; Neutrophils # (auto) 5.18 K/uL (1.4-6.5); Neutrophils % (auto) 55.4 %; Platelet Count 255 K/uL (130-400); RDW Coefficient of Variation 13.3 % (11.5-14.5); RDW Standard Deviation 43.8 fL (36.4-46.3); Red Blood Count 3.74 M/uL (4.2-5.4); White Blood Count 9.33 K/uL (4.8-10.8)
[2018-06-20 05:32] LABS: BUN Creatinine Ratio 17.8 (10-20); Blood Urea Nitrogen 16 mg/dl (7-18); Carbon Dioxide 24 mmol/L (21-32); Chloride 113 mmol/L (98-107); Creatinine Clr Calc Pharmacy 89.5 ml/min; Est GFR (Non-African American) 79.3; Glucose 105 mg/dl (70-99); Magnesium 2.1 mg/dl (1.8-2.4); Potassium 3.8 mmol/L (3.5-5.1); Sodium 140 mmol/L (136-145)
[2018-06-20 05:43] LABS: Chol HDL Ratio 4; Cholesterol 156 mg/dl (0-200); HDL Cholesterol 44 mg/dl; LDL Cholesterol Calculated 85 mg/dl; Triglycerides 137 mg/dl (0-150); Troponin I < 0.015 ng/ml (0-0.045); VLDL Cholesterol 27 mg/dl
[2018-06-20] MEDS ORDERED: LEVOTHYROXINE SODIUM 50 MCG TABLET PO SCH (06:30)
[2018-06-20 06:33] LABS: Estimated Average Glucose 105 mg/dl; Hemoglobin A1C 5.3 % (4.5-5.6)
[2018-06-20] MEDS: TOPIRAMATE 100 MG TAB PO SCH (08:51)
[2018-06-20] MEDS: CYCLOBENZAPRINE HCL 10 MG TAB PO SCH (08:51)
[2018-06-20] MEDS: GABAPENTIN 800 MG TAB PO SCH ×2 (08:51→14:07)
[2018-06-20] MEDS: DICYCLOMINE HCL 10 MG CAP PO SCH (08:52)
[2018-06-20] MEDS ORDERED: PANTOprazole 40 MG TAB PO SCH (09:00)
[2018-06-20] MEDS ORDERED: lamoTRIgine 100 MG TAB PO SCH (09:00)
[2018-06-20] MEDS ORDERED: DULOXETINE HCL 30 MG CAP PO SCH (09:00)
[2018-06-20] MEDS ORDERED: VENLAFAXINE HCL XR 150 MG CAPXR PO SCH (09:00)
[2018-06-20] MEDS ORDERED: ASPIRIN 81 MG ECTAB PO SCH (09:00)
[2018-06-20] MEDS ORDERED: DOCUSATE SODIUM 100 MG CAP PO SCH (09:00)
[2018-06-20] MEDS ORDERED: CETIRIZINE HCL 10 MG TABLET PO SCH (09:00)
[2018-06-20] MEDS ORDERED: PROPRANOLOL HCL 10 MG TAB PO SCH (12:30)
--- NOTE | 2018-06-20 12:38 | Hospitalist Progress Note ---
Date of Service June 20, 2018 Assessment & Plan (1) Chest pain: Non cardiac chest pain reports of shortness of breath of palpitations -admission CXR: no evidence of pneumonia -D-dimer is low and no clinical evidence for pulmonary embolism -No arrhythmia noted on telemetry monitoring or on EKGs -troponins have been negative x 3 -echocardiogram on 06/20/18 with normal ejection of 55 to 60 and no evidence for wall ischemia or pericardial effusion -Patient may take propanolol 10 mg twice a day for symptoms of chest discomfort or shortness of breath. Hypokalemia admission serum potassium 3.3 and after replacement with potassium supplements, the serum potassium is 3.8 and hypokalemia has resolved Replace and monitor electrolytes Asthma No signs of exacerbation Continue home inhalers Bipolar disorder PTSD fibromyalgia Continue home meds Follows with Psychiatrist Hypothyroidism Continue levothyroxine TSH 0.823 is within normal reference ranges Migraine history no acute headache on his hospital stay [id number] Not on CPAP GERD Continue PPI IBS Continue home meds DVT Px: SCDs Code Status: Full Code Discharge Diagnosis non cardiac chest pain, Hypokalemia (resolved), Hypothyroidism (on Levothyroxine and normal TSH) Discharge Instructions Patient may take propanolol 10 mg twice a day for symptoms of chest discomfort or shortness of breath. However the inpatient hospital studies have rule out heart attack or pneumonia. D-dimer is low and no clinical evidence for pulmonary embolism. No arrhythmia noted on telemetry monitoring or on EKGs Follow up with 06/25/2018 1:20 PM Provider Dennis Khan MD Department [facility] 07/04/2018 11:30 AM Provider BERNARDINO Lopez Department Gastroenterology, [facility] 07/07/2018 1:50 PM Provider Romaine John DO Department [facility] 07/11/2018 10:20 AM Provider Dennis Khan MD Department [facility] 09/01/2018 3:00 PM Provider Aiden Walker MD Department Neurology, [place] Subjective Patient seen and examined at bedside. No acute chest discomfort or palpitations or shortness of breath when seen by physician She did report some chest discomfort /palpitations/ shortness of breath to nurse but again with normal EKG, no events recorded on telemetry, and normal vital signs Physician returned and examined patient and no active patient complaints or distress. She is at baseline We discussed that all the current workup to date have not revealed an acute process such as heart attack or pneumonia or pulmonary embolism or arrhythmia or asthma Physical Exam Vital Signs (Past 24 Hours): Last Vital Signs Temp 36.5 C 06/20/18 11:18 Pulse 72 06/20/18 11:18 Resp 16 06/20/18 11:18 BP 143/95 H 06/20/18 11:18 Pulse Ox 96 06/20/18 11:18 Constitutional: WD/WN, vitals as above Eyes: PERRL, conjunctivae normal, anicteric sclerae EOM intact bilaterally ENMT: external ear and nose normal, oropharynx normal Respiratory: normal respiratory effort, lungs clear to auscultation Cardiovascular: RRR, no murmur, no edema Gastrointestinal (Abdomen): normal bowel sounds, soft, nontender, no hepatosplenomegaly Musculoskeletal: no cyanosis or clubbing, extremities motor strength 5/5 Head/Neck/Chest: normocephalic and head atraumatic Neurologic: PERRL, EOMI, accommodation nl, no face palsy, no dysarthria CN's II-XI intact bilaterally Psychiatric: A+Ox3, euthymic affect (1) Chest pain Chest pain type: unspecified Qualified Code(s): R07.9 - Chest pain, unspecified
--- NOTE | 2018-06-20 12:55 | Discharge Summary ---
Date of Service June 20, 2018 Admission HPI Per Admitting Provider Patient is a 43 yr female with history of asthma, bipolar disorder, hypothyroidism, PTSD, migraines, PCOS, RAJEEV, fibromyalgia, GERD, nephrolithiasis, IBS and other medical problems presents with history of chest pain associated with nausea and vomiting, palpitations, dizziness, dry cough and shortness of breath on exertion. Patient states having chest tightness, shortness of breath on exertion since 4 days duration. She reports chest pain to be retrosternal, nonradiating, intermittent, does not worsen with exertion, increases with deep breathing, associated with tenderness on palpation. She describes the pain as discomfort. She states having one episode of nausea vomiting today morning. Reports having a panic attack yesterday while at home. Reports chronic abdominal pain predominantly located on the right upper and lower quadrants which she attributes to IBS. Initial troponin is negative. EKG showed no significant change from prior. Denies any history of orthopnea, PND, pedal edema, wheezing, fever, chills, headache, change in vision, blood in stools, diarrhea, dysuria. Admission Exam Per Admitting Provider Physical Exam: Vitals signs as noted above General Appearance:Obese, no apparent distress Head: normocephalic, Atraumatic Eyes: normal inspection, EOMI Neck: supple, Trachea midline Respiratory/Chest: Decreased breath sounds, CTA Chest: Tenderess epigastric and across the chest Cardiovascular: S1, S2, No murmur, +Tachycardia Abdomen/GI:Soft, Mild RUQ/RLQ tender (Chronic) , Bowel sounds present Extremities/Musculoskelatal:normal inspection, no edema Neurologic/Psych:AAOX3, grossly no focal neurological deficits Skin: normal color, warm Principal Diagnosis non cardiac chest pain, Hypokalemia (resolved), Hypothyroidism (on Levothyroxine and normal TSH) Discharge Exam Constitutional WD/WN, vitals as above Eyes PERRL, conjunctivae normal, anicteric sclerae EOM intact bilaterally ENMT external ear and nose normal, oropharynx normal Respiratory normal respiratory effort, lungs clear to auscultation Cardiovascular RRR, no murmur, no edema Gastrointestinal (Abdomen) normal bowel sounds, soft, nontender, no hepatosplenomegaly Musculoskeletal no cyanosis or clubbing, extremities motor strength 5/5 Head/Neck/Chest: normocephalic and head atraumatic Neurologic PERRL, EOMI, accommodation nl, no face palsy, no dysarthria CN's II-XI intact bilaterally Psychiatric A+Ox3, euthymic affect Discharge Data Allergies Allergy/AdvReac Type Severity Reaction Status Date / Time bee venom protein (honey bee) Allergy Severe ANAPHYLAXIS Verified 05/25/18 17:08 morphine AdvReac Intermediate HALLUCINATI Verified 05/25/18 17:08 ONS Consultations 06/19/18 17:28 ED Decision to Admit Stat Hospital Course (1) Chest pain: Non cardiac chest pain reports of shortness of breath of palpitations -admission CXR: no evidence of pneumonia -D-dimer is low and no clinical evidence for pulmonary embolism -No arrhythmia noted on telemetry monitoring or on EKGs -troponins have been negative x 3 -echocardiogram on 06/20/18 with normal ejection of 55 to 60 and no evidence for wall ischemia or pericardial effusion -Patient may take propanolol 10 mg twice a day for symptoms of chest discomfort or shortness of breath. Hypokalemia admission serum potassium 3.3 and after replacement with potassium supplements, the serum potassium is 3.8 and hypokalemia has resolved Replace and monitor electrolytes Asthma No signs of exacerbation Continue home inhalers Bipolar disorder PTSD fibromyalgia Continue home meds Follows with Psychiatrist Hypothyroidism Continue levothyroxine TSH 0.823 is within normal reference ranges Migraine history no acute headache on his hospital stay RAJEEV Not on CPAP GERD Continue PPI IBS Continue home meds DVT Px: SCDs Code Status: Full Code Discharge Diagnosis non cardiac chest pain, Hypokalemia (resolved), Hypothyroidism (on Levothyroxine and normal TSH) Discharge Instructions Patient may take propanolol 10 mg twice a day for symptoms of chest discomfort or shortness of breath. However the inpatient hospital studies have rule out heart attack or pneumonia. D-dimer is low and no clinical evidence for pulmonary embolism. No arrhythmia noted on telemetry monitoring or on EKGs Follow up with 06/25/2018 1:20 PM Provider Dennis Khan MD Department [facility] 07/04/2018 11:30 AM Provider BERNARDINO Lopez Department Gastroenterology, [facility] 07/07/2018 1:50 PM Provider Romaine John DO Department [facility] 07/11/2018 10:20 AM Provider Dennis Khan MD Department [facility] 09/01/2018 3:00 PM Provider [facility] Total Time Total Time Spent Total Time Spent (In Minutes): 40 minutes Total Time Includes: Examination of the Patient, Discharge Planning and Medication Reconciliation Discharge Plan Discharge Items Patient Disposition: Home - Self-Care Reason For Visit: CHEST PAIN Discharge Diagnosis: non cardiac chest pain, Hypokalemia (resolved), Hypothyroidism (on Levothyroxine and normal TSH) Condition: Good Discharge Goals: Decrease discomfort Activity: Resume your previous activity Non-emergency contact: Primary Care Provider Call non-emergency contact if: you have any medication questions Follow-up/Referrals: Dennis Khan [Primary Care Provider] - Diet: Regular Addtl Provider Instructions: Patient may take propanolol 10 mg twice a day for symptoms of chest discomfort or shortness of breath. However the inpatient hospital studies have rule out heart attack or pneumonia. D-dimer is low and no clinical evidence for pulmonary embolism. No arrhythmia noted on telemetry monitoring or on EKGs Follow up with 06/25/2018 1:20 PM Provider Dennis Khan MD Department [facility] 07/04/2018 11:30 AM Provider BERNARDINO Lopez Department Gastroenterology, [facility] 07/07/2018 1:50 PM Provider Romaine John DO Department [facility] 07/11/2018 10:20 AM Provider Dennis Khan MD Department [facility] 09/01/2018 3:00 PM Provider [facility] Prescriptions: New propranolol 10 mg Tablet 10 mg PO BID 30 Days Qty: 60 RF: 0 Continued cyclobenzaprine 10 mg Tablet 10 mg PO AMHS RF: 0 norethindrone-e.estradiol-iron 1.5 mg-30 mcg (21)/75 mg (7) Tablet 1 tab PO DAILY RF: 0 lamotrigine [Lamictal] 200 mg Tablet 200 mg PO QAM RF: 0 albuterol sulfate 2.5 mg /3 mL (0.083 %) Solution For Nebulization 2.5 mg INHALATION Q4H PRN (Reason: Shortness Of Breath Or Wheezing) RF: 0 cetirizine [Zyrtec] 10 mg Tablet 10 mg PO QAM RF: 0 meloxicam [Mobic] 15 mg Tablet 15 mg PO QAM RF: 0 rizatriptan [Maxalt] 10 mg Tablet 10 mg PO DIRECTED PRN (Reason: Migraine Headache) RF: 0 cyanocobalamin (vitamin B-12) [Vitamin B-12] 1,000 mcg Tablet 1,000 mcg PO QAM RF: 0 hydroxyzine pamoate [Vistaril] 50 mg Capsule 50 mg PO HS RF: 0 gabapentin 800 mg Tablet 800 mg PO TID RF: 0 levothyroxine 50 mcg Tablet 50 mcg PO QAM RF: 0 pantoprazole [Protonix] 40 mg Tablet,Delayed Release (Dr/Ec) 40 mg PO QAM RF: 0 ferrous sulfate [Feosol] 325 mg (65 mg iron) Tablet 325 mg PO QAM RF: 0 docusate sodium [Colace] 100 mg Capsule 100 mg PO QAM RF: 0 epinephrine [EpiPen] 0.3 mg/0.3 mL Auto-Injector 0.3 mg IM DIRECTED PRN (Reason: Allergic Reaction) RF: 0 albuterol sulfate [ProAir HFA] 90 mcg/actuation Hfa Aerosol Inhaler 2 puff INHALATION Q4H PRN (Reason: Cough or Shortness Of Breath) RF: 0 fluticasone [Flonase Allergy Relief] 50 mcg/actuation Lejunior,Suspension 2 spray INTRANASAL DAILY PRN (Reason: Allergy Symptoms) RF: 0 dicyclomine 10 mg Capsule 20 mg PO AMHS RF: 0 Breo Ellipta 200-25 mcg/dose Blister With Device 1 inh INHALATION QAM RF: 0 topiramate [Topamax] 200 mg Tablet 200 mg PO AMHS RF: 0 amitriptyline 25 mg Tablet 25 mg PO HS RF: 0 prazosin [Minipress] 2 mg capsule 4 mg PO HS RF: 0 hydroxyzine pamoate [Vistaril] 25 mg capsule 25 mg PO HS RF: 0 duloxetine [Cymbalta] 30 mg capsule,delayed release(DR/EC) 30 mg PO QAM RF: 0 venlafaxine 150 mg capsule,extended release 24hr 300 mg PO QAM RF: 0 Stand-Alone Forms: [facility] Discharge Orders: Discharge Order (Routine); Ordered 06/20/18 Ordered By: Jose Argueta Admission Data Admit Date/Time: 06/19/18 19:41 Attending Provider: Jose Argueta Admit Provider: Jose Escalera Primary Care Provider: Dennis Khan Other Providers: Jose Escalera Service: Telemetry
== END 2018-06-20 14:55 | disposition home or self-care (01) ==
LOC: 2S 14:05 → ED 14:05 → 2S 20:03

== ENCOUNTER 2021-10-27 15:32 | Inpatient (IN) ==
--- NOTE | 2021-10-27 16:37 | Emergency Department Note ---
Impression & Plan Depression with suicidal ideation, Acute UTI ED Provider Note Provider: Semaj Bond MD DATE OF SERVICE: 10/27/2021 CHIEF COMPLAINT: Thoughts of overdose HISTORY OF PRESENT ILLNESS: Patient is a 46-year-old female history of fibromyalgia, asthma, kidney stone, and bipolar presenting here today reporting that over the past week she is at increased depressions now having some thoughts of wanting to overdose on her medications. States she did not try to do this but is a history of suicide attempts in the past. Talked with crisis today referred here for evaluation. Denies homicidal ideation. Patient states she has her baseline occasional nausea for which she uses Zofran at home. States she wishes for inpatient treatment and wants help. Upon entering the room the patient is talking with one of her friends who she describes as a spiritual friend on the phone who she states has been very supportive. She states she is not been having good discussions with her mother as her mother does not understand. Reports she has slight twinges of some chest discomfort. REVIEW OF SYSTEMS: A total of 10 review of systems was obtained and negative except as stated above in the HPI. PAST MEDICAL HISTORY: As noted above MEDICATIONS: Reviewed home medications SOCIAL HISTORY: Lives with mother, non-smoker PHYSICAL EXAM: GENERAL: alert and oriented in no acute distress on stretcher Head: normocephalic and atraumatic EYES: No injection, discharge or icterus. NECK: Trachea midline. LUNGS: Airway patent. No retractions or tachypnea HEART: Regular rate and rhythm. No chest wall tenderness ABDOMEN: Soft and non-tender, without guarding or rebound. SKIN: Acyanotic, warm, dry, without rashes EXTREMITIES: Without swelling, tenderness or deformity NEUROLOGICAL: No focal deficits. No aphasia. No facial droop or slurred speech. Ambulatory. Psych: Patient with somewhat flattened affect. No response to external stimuli. Denies HI. Reports significant depression with some thoughts of possibly overdosing on her medication and her life. EK beats from sinus rhythm with PACs. No acute ST segment elevation or depression with a QTC of 451. Patient's laboratory studies and imaging reviewed. Differential includes Mood disorder, infection, hypoglycemia, electrolyte abnor malities, cardiac sources, intracerebral event, toxicologic, trauma, neurologic, as well as other pathologies. IMPRESSION/MEDICAL DECISION MAKING: Patient with history of bipolar disorder presenting today referred by crisis due to thoughts of wanting to overdose on medication. History of overdose in past and prior extensive psychiatric history including prior hospitalization. Wishing for inpatient voluntary hospitalization at this time. Reports a little bit mild chest discomfort states has been intermittent and very mild at this time. Benign abdomen. Denies significant shortness of breath. EKG and basic labs were obtained. Doubt this is cardiac in nature. COVID test was obtained. Seen by case management as well. Does not appear acutely psychotic at this time. Blood work reassuring but urinalysis questionable for infection and the patient does endorse some burning with urination. We will treat with Keflex (5 days). No concerning cardiac abnormalities or elevated troponin noted I doubt ACS. Bed search was initiated. Accepted on 201 to 3 S. DIAGNOSIS: Depression with suicidal ideation, acute uti DISPOSITION: 3 S. for further care Past Med/Surg History Medical History Anemia Anxiety Asthma USES PRN INH APPROX 1-2 X MONTHLY; DENIES RECENT EXAC Bipolar 1 disorder Chest pain, atypical Closed head injury R/T FALL IN 2017; REPORTS CONCUSSION E. coli septicemia Fibroadenoma of breast RT Fibromyalgia GERD (gastroesophageal reflux disease) Hx of prolonged Q-T interval on ECG PER PT'S MEDICAL RECORD FROM PCP OFFICE. Hypothyroidism Irregular menses Kidney stone Migraine Obesity PCO (polycystic ovaries) Peripheral neuropathy Poor historian PTSD (post-traumatic stress disorder) Pyelonephritis Recurrent UTI Sleep apnea NO CPAP Surgical History H/O lithotripsy History of ankle surgery RT History of breast biopsy RT History of cystoscopy Hx of cholecystectomy Hx of colonoscopy Hx of knee surgery RT Status post labral repair of shoulder RT Family History Father Heart disease Other No significant family history Social History Smoking Status: Never smoker Second Hand Exposure: No; Hx Alcohol Use: No Hx Substance Use: No Preferred Language: Kinyarwanda Communication Ability: Effective 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 Beliefs That Will Affect Care: None marital status: Single Current Living Situation: Family Current Living Situation Comment: At home with mother current occupational status: disabled Feels Safe at Home: Yes Assistive Devices: None Allergies Allergies Allergy/AdvReac Type Severity Reaction Status Date / Time bee venom protein (honey bee) Allergy Severe ANAPHYLAXIS Verified 06/03/21 20:52 morphine AdvReac Intermediate HALLUCINATI Verified 06/03/21 20:52 ONS Home Meds Home Medications Medication Instructions Recorded Confirmed cyclobenzaprine 10 mg tablet 10 mg PO AMHS 01/10/18 10/27/21 docusate sodium 100 mg capsule 100 mg PO QAM 01/10/18 10/27/21 (Colace) epinephrine 0.3 mg/0.3 mL 0.3 mg IM DIRECTED PRN Severe 01/10/18 10/27/21 injection, auto-injector (EpiPen) Allergic Reaction ferrous sulfate 325 mg (65 mg 325 mg PO QAM 01/10/18 10/27/21 iron) tablet (Feosol) fluticasone furoate 200 1 inh inhalation QAM 01/10/18 10/27/21 mcg-vilanterol 25 mcg/dose inhalation powder (Breo Ellipta) fluticasone propionate 50 2 spray intranasal DAILY PRN 01/10/18 10/27/21 mcg/actuation nasal Allergy Symptoms spray,suspension (Flonase Allergy Relief) gabapentin 800 mg tablet 800 mg PO TID 01/10/18 10/27/21 levothyroxine 50 mcg tablet 50 mcg PO DAILYBB 01/10/18 10/27/21 pantoprazole 40 mg tablet,delayed 40 mg PO QAM 01/10/18 10/27/21 release (Protonix) rizatriptan 10 mg tablet (Maxalt) 10 mg PO DIRECTED PRN Migraine 01/10/18 10/27/21 Headache topiramate 200 mg tablet (Topamax) 200 mg PO AMHS 05/25/18 10/27/21 amitriptyline 25 mg tablet 25 mg PO HS 06/19/18 10/27/21 prazosin 2 mg capsule (Minipress) 4 mg PO HS 06/19/18 10/27/21 cetirizine 10 mg tablet (Zyrtec) 10 mg PO QAM 09/20/18 10/27/21 Lactobacillus comb 1 cap PO QAM 10/14/18 10/27/21 [id number] 300 million cell-250 mg capsule (Probiotic and Acidophilus) hydroxyzine pamoate 50 mg capsule 150 mg PO HS 10/14/18 10/27/21 (Vistaril) onabotulinumtoxinA 200 unit 155 unit IM .Q12 WEEKS 10/14/18 10/27/21 solution for injection (Botox) magnesium oxide 400 mg PO QAM 04/07/19 10/27/21 gabapentin 300 mg capsule 300 mg PO TID 08/08/19 10/27/21 (Neurontin) lamotrigine 200 mg tablet 200 mg PO QAM 08/08/19 10/27/21 (Lamictal) ondansetron 4 mg disintegrating 4 mg PO Q8H PRN Nausea 08/08/19 10/27/21 tablet cranberry 500 mg capsule 500 mg PO QAM 02/14/20 10/27/21 cyanocobalamin (vitamin B-12) 1,000 mcg PO QAM 02/14/20 10/27/21 1,000 mcg tablet (Vitamin B-12) norethindrone 1.5 mg-ethinyl 1 tab PO QAM 02/14/20 10/27/21 estradiol 30 mcg(21)/iron 75 mg(7) tablet ([place] FE 1.5/30 (28)) lisinopril 5 mg tablet 5 mg PO QAM 09/15/20 10/27/21 duloxetine 60 mg capsule,delayed 60 mg PO QAM 03/04/21 10/27/21 release dicyclomine 20 mg PO Q6H PRN Abdominal Pain 10/27/21 10/27/21 famotidine 20 mg PO DAILY 10/27/21 10/27/21 lorazepam 0.5 mg PO Q8H PRN Anxiety 10/27/21 10/27/21 metformin 500 mg PO HS 10/27/21 10/27/21 Results & Data (ED) Vital Signs Vital Signs - 24 hr 10/27/21 15:42 10/27/21 15:39 10/27/21 18:05 Temperature 37 C Temperature Source Oral Pulse Rate [Right Finger] 103 H 80 Respiratory Rate 16 16 Respiratory Effort / Characteristics Non-Labored Spontaneous Non-Labored Spontaneous Respiratory Depth Normal Normal Respiratory Pattern Regular Regular Blood Pressure [Right Arm] 135/72 132/80 Blood Pressure Mean [Right Arm] 93 97 Blood Pressure Position [Right Arm] Semi-fowlers Pulse Oximetry 96 97 Oxygen Delivery Method Room Air Room Air Sepsis Recent Fever Within 48 Hours No Sepsis New/Unexplained Change in Mental Status No Sepsis Action Taken by Nursing No Action Required Laboratory Data Result diagrams: 10/27/21 16:29 10/27/21 16:29 Lab Results 10/27/21 10/27/21 10/27/21 Range/Units 15:53 16:29 16:29 WBC 11.26 H (4.8-10.8) K/ul RBC 4.26 (3.93-5.22) M/uL Hgb 12.9 (12.0-16.0) g/dl Hct 40.2 (34.1-44.9) % MCV 94.4 (80.0-100.0) fL MCH 30.3 (25.0-34.0) pg MCHC 32.1 (32.0-36.0) g/dL RDW Std Deviation 43.7 (36.4-46.3) fL RDW Coeff of Kailee 12.7 (11.5-14.5) % Plt Count 369 (130-400) K/uL MPV 9.0 L (9.4-12.3) fL Immature Gran % (Auto) 1.2 % Neut % (Auto) 63.8 % Lymph % (Auto) 25.8 % [place] % (Auto) 6.6 % Eos % (Auto) 1.8 % Baso % (Auto) 0.8 % Neut # (Auto) 7.20 H (1.4-6.5) K/uL Lymph # (Auto) 2.90 (1.2-3.4) K/uL [place] # (Auto) 0.74 (0.24-0.82) K/uL Eos # (Auto) 0.20 (0-0.50) K/uL Baso # (Auto) 0.09 (0-0.2) K/uL Immature Gran # (Auto) 0.13 H (0.00-0.02) K/uL Sodium 138 (136-145) mmol/L Potassium 3.7 (3.5-5.1) mmol/L Chloride 113 H (98-107) mmol/L Carbon Dioxide 19 L (21-32) mmol/L Anion Gap 6 (3-11) BUN 18 (6-23) mg/dl Creatinine 0.84 (0.6-1.2) mg/dl Est Cr Clr Drug Dosing 88.9 ml/min Est GFR ( Amer) 95.3 ml/min Est GFR (Non-Af Amer) 82.2 ml/min BUN/Creatinine Ratio 21.4 H (10-20) Glucose 99 (70-99(Fasting)) mg/dl Calcium 8.6 (8.5-10.1) mg/dl Total Bilirubin 0.2 (0.2-1.0) mg/dl AST 15 (13-39) U/L ALT 18 (7-52) U/L Alkaline Phosphatase 48 (34-104) U/L Troponin I High Sens 2.6 (0-14) pg/ml Total Protein 8.0 (6.0-8.3) gm/dl Albumin 4.2 (3.4-5.0) gm/dl Globulin 3.8 (2.5-4.0) gm/dl Albumin/Globulin Ratio 1.1 (0.9-2) TSH (0.300-4.500) uIu/ml Free T4 (0.61-1.60) ng/dl HCG, Qual (Negative) Urine Color Dark Yellow Urine Appearance Cloudy A (Clear) Urine pH 5.5 (4.5-7.5) Ur Specific [place] 1.023 (1.000-1.030) Urine Protein Negative (Negative) Urine Glucose (UA) Negative (Negative) Urine Ketones Negative (Negative) Urine Blood Negative (Negative) Urine Nitrite Negative (Negative) Urine Bilirubin Negative (Negative) Urine Urobilinogen Negative (Negative) Ur Leukocyte Esterase 2+ H (Negative) Urine WBC (Auto) >30 H (0-5) /hpf Urine RBC (Auto) 0-4 (0-4) /hpf U Hyaline Cast (Auto) >30 H (0-5) /lpf U Epithel Cells (Auto) >30 H (0-5) /lpf Urine Bacteria (Auto) 3+ H (Negative) Urine Crystals Not Reportable Calcium Oxalate Crystal Present A (None Prsent) Salicylates (3.0-30) mg/dl Urine Opiates Screen (Neg) Ur Methadone, Qual (Neg) Acetaminophen (10-30) ug/ml Urine Barbiturates (Neg) Ur Phencyclidine (PCP) (Neg) U Amphetamin/Meth Scrn (Neg) MDMA (Ecstasy) Screen (Neg) U Benzodiazepines Scrn (Neg) Ur Cocaine Metabolite (Neg) U Marijuana (THC) Screen (Neg) Ethyl Alcohol mg/dL (<10.0) mg/dl SARS-CoV-2, RNA, NAAT (NEGATIVE) 10/27/21 10/27/21 10/27/21 Range/Units 16:29 16:29 16:29 WBC (4.8-10.8) K/ul RBC (3.93-5.22) M/uL Hgb (12.0-16.0) g/dl Hct (34.1-44.9) % MCV (80.0-100.0) fL MCH (25.0-34.0) pg MCHC (32.0-36.0) g/dL RDW Std Deviation (36.4-46.3) fL RDW Coeff of Kailee (11.5-14.5) % Plt Count (130-400) K/uL MPV (9.4-12.3) fL Immature Gran % (Auto) % Neut % (Auto) % Lymph % (Auto) % Murray % (Auto) % Eos % (Auto) % Baso % (Auto) % Neut # (Auto) (1.4-6.5) K/uL Lymph # (Auto) (1.2-3.4) K/uL [place] # (Auto) (0.24-0.82) K/uL Eos # (Auto) (0-0.50) K/uL Baso # (Auto) (0-0.2) K/uL Immature Gran # (Auto) (0.00-0.02) K/uL Sodium (136-145) mmol/L Potassium (3.5-5.1) mmol/L Chloride (98-107) mmol/L Carbon Dioxide (21-32) mmol/L Anion Gap (3-11) BUN (6-23) mg/dl Creatinine (0.6-1.2) mg/dl Est Cr Clr Drug Dosing ml/min Est GFR ( Amer) ml/min Est GFR (Non-Af Amer) ml/min BUN/Creatinine Ratio (10-20) Glucose (70-99(Fasting)) mg/dl Calcium (8.5-10.1) mg/dl Total Bilirubin (0.2-1.0) mg/dl AST (13-39) U/L ALT (7-52) U/L Alkaline Phosphatase (34-104) U/L Troponin I High Sens (0-14) pg/ml Total Protein (6.0-8.3) gm/dl Albumin (3.4-5.0) gm/dl Globulin (2.5-4.0) gm/dl Albumin/Globulin Ratio (0.9-2) TSH 0.266 L (0.300-4.500) uIu/ml Free T4 0.80 (0.61-1.60) ng/dl HCG, Qual (Negative) Urine Color Urine Appearance (Clear) Urine pH (4.5-7.5) Ur Specific [place] (1.000-1.030) Urine Protein (Negative) Urine Glucose (UA) (Negative) Urine Ketones (Negative) Urine Blood (Negative) Urine Nitrite (Negative) Urine Bilirubin (Negative) Urine Urobilinogen (Negative) Ur Leukocyte Esterase (Negative) Urine WBC (Auto) (0-5) /hpf Urine RBC (Auto) (0-4) /hpf U Hyaline Cast (Auto) (0-5) /lpf U Epithel Cells (Auto) (0-5) /lpf Urine Bacteria (Auto) (Negative) Urine Crystals Calcium Oxalate Crystal (None Prsent) Salicylates < 3.0 L (3.0-30) mg/dl Urine Opiates Screen (Neg) Ur Methadone, Qual (Neg) Acetaminophen < 3 L (10-30) ug/ml Urine Barbiturates (Neg) Ur Phencyclidine (PCP) (Neg) U Amphetamin/Meth Scrn (Neg) MDMA (Ecstasy) Screen (Neg) U Benzodiazepines Scrn (Neg) Ur Cocaine Metabolite (Neg) U Marijuana (THC) Screen (Neg) Ethyl Alcohol mg/dL < 10.0 (<10.0) mg/dl SARS-CoV-2, RNA, NAAT (NEGATIVE) 10/27/21 10/27/21 10/27/21 Range/Units 16:29 16:29 16:29 WBC (4.8-10.8) K/ul RBC (3.93-5.22) M/uL Hgb (12.0-16.0) g/dl Hct (34.1-44.9) % MCV (80.0-100.0) fL MCH (25.0-34.0) pg MCHC (32.0-36.0) g/dL RDW Std Deviation (36.4-46.3) fL RDW Coeff of Kailee (11.5-14.5) % Plt Count (130-400) K/uL MPV (9.4-12.3) fL Immature Gran % (Auto) % Neut % (Auto) % Lymph % (Auto) % Murray % (Auto) % Eos % (Auto) % Baso % (Auto) % Neut # (Auto) (1.4-6.5) K/uL Lymph # (Auto) (1.2-3.4) K/uL [place] # (Auto) (0.24-0.82) K/uL Eos # (Auto) (0-0.50) K/uL Baso # (Auto) (0-0.2) K/uL Immature Gran # (Auto) (0.00-0.02) K/uL Sodium (136-145) mmol/L Potassium (3.5-5.1) mmol/L Chloride (98-107) mmol/L Carbon Dioxide (21-32) mmol/L Anion Gap (3-11) BUN (6-23) mg/dl Creatinine (0.6-1.2) mg/dl Est Cr Clr Drug Dosing ml/min Est GFR ( Amer) ml/min Est GFR (Non-Af Amer) ml/min BUN/Creatinine Ratio (10-20) Glucose (70-99(Fasting)) mg/dl Calcium (8.5-10.1) mg/dl Total Bilirubin (0.2-1.0) mg/dl AST (13-39) U/L ALT (7-52) U/L Alkaline Phosphatase (34-104) U/L Troponin I High Sens (0-14) pg/ml Total Protein (6.0-8.3) gm/dl Albumin (3.4-5.0) gm/dl Globulin (2.5-4.0) gm/dl Albumin/Globulin Ratio (0.9-2) TSH (0.300-4.500) uIu/ml Free T4 (0.61-1.60) ng/dl HCG, Qual Negative (Negative) Urine Color Urine Appearance (Clear) Urine pH (4.5-7.5) Ur Specific [place] (1.000-1.030) Urine Protein (Negative) Urine Glucose (UA) (Negative) Urine Ketones (Negative) Urine Blood (Negative) Urine Nitrite (Negative) Urine Bilirubin (Negative) Urine Urobilinogen (Negative) Ur Leukocyte Esterase (Negative) Urine WBC (Auto) (0-5) /hpf Urine RBC (Auto) (0-4) /hpf U Hyaline Cast (Auto) (0-5) /lpf U Epithel Cells (Auto) (0-5) /lpf Urine Bacteria (Auto) (Negative) Urine Crystals Calcium Oxalate Crystal (None Prsent) Salicylates (3.0-30) mg/dl Urine Opiates Screen Neg (Neg) Ur Methadone, Qual Neg (Neg) Acetaminophen (10-30) ug/ml Urine Barbiturates Neg (Neg) Ur Phencyclidine (PCP) Neg (Neg) U Amphetamin/Meth Scrn Neg (Neg) MDMA (Ecstasy) Screen Neg (Neg) U Benzodiazepines Scrn Neg (Neg) Ur Cocaine Metabolite Neg (Neg) U Marijuana (THC) Screen Neg (Neg) Ethyl Alcohol mg/dL (<10.0) mg/dl SARS-CoV-2, RNA, NAAT NEGATIVE (NEGATIVE) Administered Medications Cephalexin HCl (Cephalexin 500 Mg Cap) 500 mg PO BID VALERI Stop: 11/01/21 20:59 Last Admin: 10/27/21 19:19 Dose: 500 mg Documented By: [facility] Discharge Plan Visit Data Chief Complaint: Mental Health Evaluation Stated Complaint: [facility] ED Provider: Semaj Bond Discharge Problem: Depression with suicidal ideation, Acute UTI Patient Disposition: Transfer Behavioral Health Fac Forms Stand Alone Forms: My [facility], Suicide Prevention Resources Prescriptions Prescriptions: No Action cyclobenzaprine 10 mg Tablet 10 mg PO AMHS rizatriptan [Maxalt] 10 mg Tablet 10 mg PO DIRECTED MDD 30 MG/24 HOURS PRN (Reason: Migraine Headache) Rx Instructions: TAKE ONE TABLET AT ONSET OF MIGRAINE HEADACHE, MAY REPEAT DOSE EVERY TWO HOURS IF NEEDED. MAXIMUM 3 TABLETS/24 HOURS gabapentin 800 mg Tablet 800 mg PO TID Rx Instructions: TOTAL DOSE 1100 MG--TAKE WITH ONE 300 MG TABLET levothyroxine 50 mcg Tablet 50 mcg PO DAILYBB Rx Instructions: TAKE THIS MEDICATION AT LEAST 30 MINUTES BEFORE BREAKFAST OR ANY OTHER MEDI CATIONS pantoprazole [Protonix] 40 mg Tablet,Delayed Release (Dr/Ec) 40 mg PO QAM ferrous sulfate [Feosol] 325 mg (65 mg iron) Tablet 325 mg PO QAM docusate sodium [Colace] 100 mg Capsule 100 mg PO QAM epinephrine [EpiPen] 0.3 mg/0.3 mL Auto-Injector 0.3 mg IM DIRECTED PRN (Reason: Severe Allergic Reaction) fluticasone propionate [Flonase Allergy Relief] 50 mcg/actuation [place],Suspension 2 spray INTRANASAL DAILY PRN (Reason: Allergy Symptoms) fluticasone furoate-vilanterol [Breo Ellipta] 200-25 mcg/dose Blister With Device 1 inh INHALATION QAM Label Comments: pt has with her topiramate [Topamax] 200 mg Tablet 200 mg PO AMHS amitriptyline 25 mg Tablet 25 mg PO HS prazosin [Minipress] 2 mg capsule 4 mg PO HS cetirizine [Zyrtec] 10 mg Tablet 10 mg PO QAM hydroxyzine pamoate [Vistaril] 50 mg capsule 150 mg PO HS Botox 200 unit Recon Soln 155 unit IM .Q12 WEEKS Label Comments: next dose is in October Rx Instructions: DIVIDED OVER 31 SITES Probiotic and Acidophilus 300-250 million cell-mg Capsule 1 cap PO QAM magnesium oxide 400 mg magnesium Tablet 400 mg PO QAM lamotrigine [Lamictal] 200 mg tablet 200 mg PO QAM gabapentin [Neurontin] 300 mg capsule 300 mg PO TID Rx Instructions: TOTAL DOSE 1100 MG--TAKE WITH ONE 800 MG TABLET ondansetron 4 mg Tablet,Disintegrating 4 mg PO Q8H PRN (Reason: Nausea) cranberry 500 mg Capsule 500 mg PO QAM norethindrone-e.estradiol-iron [June FE 1.5/30 (28)] 1.5 mg-30 mcg (21)/75 mg (7) tablet 1 tab PO QAM cyanocobalamin (vitamin B-12) [Vitamin B-12] 1,000 mcg Tablet 1,000 mcg PO QAM lisinopril 5 mg tablet 5 mg PO QAM duloxetine 60 mg capsule,delayed release(DR/EC) 60 mg PO QAM famotidine 20 mg tablet 20 mg PO DAILY lorazepam 0.5 mg tablet 0.5 mg PO Q8H PRN (Reason: Anxiety) metformin 500 mg tablet 500 mg PO HS dicyclomine 20 mg tablet 20 mg PO Q6H PRN (Reason: Abdominal Pain) Referrals Referrals: Dennis Khan MD [Primary Care Provider] -
[2021-10-27 16:52] LABS: Basophils # (auto) 0.09 K/uL (0-0.2); Basophils % (auto) 0.8 %; Eosinophils % (auto) 1.8 %; Hematocrit (blood only) 40.2 % (34.1-44.9); Hemoglobin 12.9 g/dl (12.0-16.0); Immature Granulocytes # (auto) 0.13 K/uL (0.00-0.02); Immature Granulocytes % (auto) 1.2 %; Lymphocytes % (auto) 25.8 %; Mean Corpuscular Hemoglobin 30.3 pg (25.0-34.0); Mean Corpuscular Hgb Conc 32.1 g/dL (32.0-36.0); Mean Corpuscular Volume 94.4 fL (80.0-100.0); Monocytes # (auto) 0.74 K/uL (0.24-0.82); Monocytes % (auto) 6.6 %; Neutrophils % (auto) 63.8 %; Platelet Count 369 K/uL (130-400); RDW Coefficient of Variation 12.7 % (11.5-14.5); RDW Standard Deviation 43.7 fL (36.4-46.3); Red Blood Count 4.26 M/uL (3.93-5.22); White Blood Count 11.26 K/ul (4.8-10.8)
[2021-10-27 16:57] LABS: Appearance Urine Cloudy (Clear); Bacteria Urine Automated 3+ (Negative); Bilirubin Urine Negative (Negative); Blood Urine Negative (Negative); Color Urine Dark Yellow; Epithelial Cell Urine Auto >30 /lpf (0-5); Glucose Urine UA Negative (Negative); Ketones Urine Negative (Negative); Leukocyte Esterase Urine 2+ (Negative); Nitrite Urine Negative (Negative); Protein Urine Negative (Negative); RBC Urine Automated 0-4 /hpf (0-4); Specific Gravity Urine 1.023 (1.000-1.030); Urobilinogen Urine Negative (Negative); WBC Urine Automated >30 /hpf (0-5); pH Urine 5.5 (4.5-7.5)
[2021-10-27 17:06] LABS: Calcium Oxalate Crystals Urine Present (None Prsent); Cast Urine Automated >30 /lpf (0-5)
[2021-10-27 17:14] LABS: Pregnancy Test, Serum Negative (Negative)
[2021-10-27 17:16] LABS: Albumin Globulin Ratio 1.1 (0.9-2); Albumin Level 4.2 gm/dl (3.4-5.0); BUN Creatinine Ratio 21.4 (10-20); Bilirubin,Total 0.2 mg/dl (0.2-1.0); Calcium 8.6 mg/dl (8.5-10.1); Creatinine Clr Calc Pharmacy 88.9 ml/min; Est GFR (African American) 95.3 ml/min; Est GFR (Non-African American) 82.2 ml/min; Globulin 3.8 gm/dl (2.5-4.0); Potassium 3.7 mmol/L (3.5-5.1)
[2021-10-27 17:19] LABS: Troponin I High Sensitivity 2.6 pg/ml (0-14)
[2021-10-27 17:52] LABS: Acetaminophen < 3 ug/ml (10-30); Salicylate < 3.0 mg/dl (3.0-30); Thyroid Stimulating Hormone 0.266 uIu/ml (0.300-4.500)
[2021-10-27 17:53] LABS: Amphetamines+Metham, Urine Neg (Neg); Barbiturates, Urine Neg (Neg); Benzodiazepine, Urine Neg (Neg); Cocaine, Urine Neg (Neg); MDMA (Ecstacy), Urine Neg (Neg); Methadone, Urine Neg (Neg); Opiate, Urine Neg (Neg); Phencyclidine, Urine Neg (Neg)
[2021-10-27 18:24] LABS: T4 Free Thyroxine 0.8 ng/dl (0.61-1.60)
[2021-10-27] MEDS: cephALEXin 500 MG CAP PO SCH (19:19)
[2021-10-27] MEDS ORDERED: BISMUTH SUBSALICYLATE LIQD 236 ML PO PRN (20:05)
[2021-10-27] MEDS ORDERED: MAGNESIUM HYDROXIDE SUSP 30 ML UDC PO PRN (20:05)
[2021-10-27] MEDS ORDERED: SODIUM CHLORIDE 0.65% NA SOLN 45 ML (OCEAN) PRN (20:05)
[2021-10-27] MEDS ORDERED: ALUMINUM/MAGNESIUM SUSP 30 ML UDC PO PRN (20:05)
[2021-10-27] MEDS ORDERED: hydrOXYzine HCl 25 MG TAB PO PRN (20:05)
[2021-10-27] MEDS ORDERED: PRAZOSIN HCL 1 MG CAP PO SCH (22:00)
[2021-10-27] MEDS ORDERED: hydrOXYzine HCl 25 MG TAB PO SCH (22:00)
[2021-10-27] MEDS ORDERED: AMITRIPTYLINE HCL 25 MG TAB PO SCH (22:00)
[2021-10-27] MEDS ORDERED: FAMOTIDINE 20 MG TAB PO SCH (22:00)
[2021-10-27] MEDS: GABAPENTIN 800 MG TAB PO SCH (22:02)
[2021-10-27] MEDS: CYCLOBENZAPRINE HCL 10 MG TAB PO SCH (22:02)
[2021-10-27] MEDS: TOPIRAMATE 100 MG TAB PO SCH (22:03)
[2021-10-27] MEDS: GABAPENTIN 300 MG CAP PO SCH (22:03)
[2021-10-27] MEDS ORDERED: ALBUTEROL HFA 8 GM INHALER INH ONE (22:08)
[2021-10-27] MEDS ORDERED: ALBUTEROL HFA 8 GM INHALER INH PRN (22:21)
--- NOTE | 2021-10-28 08:16 | History & Physical ---
Date of Service October 28, 2021 Impression / Recommendations Impression The patient is a 46 year old with a history of depression, anxiety, PTSD, possible BPAD type II, chronic back pain with a history of two prior suicide attempts via overdose who was admitted for worsening depression and SI with plan of overdosing. Diagnostically consistent with MDD with anxious distress with significant contribution from complicated bereavement and possible worsening mood due to her hypothyroidism (TSH was low but free T4 is normal). The patient is deemed unstable and requires psychiatric hospitalization for diagnostic clarification, safety and stabilization, medication management and development of further coping skills. Grief She is not interested in returning to [facility] which she attended weekly. She now spends that time walking her dogs and helping with housework. Reviewed her current psychiatric medications including Cymbalta, amitriptyline, gabapentin, lamictal, prazosin, and hydroxyzine. The gabapentin, Cymbalta, amitriptyline and topirimate also help with her chronic pain and migraines. She feels all of her medications are helpful and denies any side effects. Discussed medication treatment options in detail including alternative medications to help with insomnia such as trazodone or mirtazapine. Discussed risks, benefits and alternatives. Patient would like to continue with her current medications and consented to remain on these for depression with BPAD II, chronic pain and migraines. Reviewed side effects including but not limited to: GI, STEVENS, sexual side effects, HTN, diaphoresis with Cymbalta; serotonin syndrome with amitriptyline, rash with lamictal and need for adherence, sedation with gabapentin, low BP with prazosin, and anticholinergic effects with hydroxyzine. (1) Bipolar 2 disorder, major depressive episode: (2) MDD (major depressive disorder), recurrent episode, moderate: (3) Depression with suicidal ideation: (4) Complicated bereavement: (5) PTSD (post-traumatic stress disorder): (6) Anxiety: Plan 10/28/21: The patient was admitted to the [facility] ([facility]) on q15 min checks (behavioral with suicide precautions) for safety. The patient will participate in group, recreational, and milieu therapies and will be offered additional individual and family sessions as clinically appropriate. -will add lidocaine patch prn and heating pad for back pain -Continue Cymbalta 60mg qd, gabapentin 1100mg TID, lamictal 200mg qd, topimax 200mg BID, prazosin 4mg qhs, hydroxyzine 150mg qhs, amitriptyline 25mg qhs -coordinate with her mother and outpatient resources Inventory Assets Strengths: good support from family, strong denominational ties/community, good rapport with outpatient providers Needs: safety and stabilization, possible medication adjustment, additional coping skills, increased outpatient services Suicide Risk Level Suicide Risk Level Comments: High-Moderate due to severe depression with SI with plan prior to admission but feels safe in the hospital, able to safety contract and agrees to let nursing/staff know should they develop plan, intent or feel unable to remain safe. Risk Factors Assessment : Yes Do You Have Access To A Gun?: No Health Problems: Yes Mental Health Diagnoses: Yes Previous Attempt: Yes Previous Psychiatric Hospitalization: Yes Hopelessness: Yes Protective Factors Assessment Employed: No Stable Relationships: Yes Supportive Family: Yes Good Rapport with Provider: Yes Psychiatric History Identifying Data DONALD RAMIREZ is a 46-year-old F who currently lives in [place] with her mother, has a history of PTSD, depression, anxiety and BPAD type II, and was admitted on 10/27/21 20:05 on a 201 voluntary commitment for depression with SI wth plan of overdosing on medication. Chief Complaint "I really miss my dog". History of Present Illness Donald presents for psychiatric admission for worsening depression and SI with plan to overdose on medication in the context of multiple recent psychosocial stressors including the upcoming anniversary of her father's and recently leaving the [facility] after 7 years. She endorses depressive symptoms including hopelessness, helplessness, self-guilt, worthlessness, decreased sleep (average 3-4 hours per night), anhedonia, no change in appetite and SI with plan of overdosing on her medication. She's also been experiencing an increase in anxiety especially in the evenings. She informed the phlebotomy manager on 10/27/21 that: "Donald stated she was doing well up until recently. She stated she became more involved in the nondenominational which helped her self esteem. She stated she has been under a lot of stress recently. She stated she swore at her mother and has a great deal of guilt. Donald stated she recently got a therapy dog and "I feel terrible for leaving him with my mother while I am in the hospital." She has been taking her current psychiatric medications for the last 3-4 years. Her Vistaril was recently increased about one month ago to help with sleep and anxiety. She denies any medication side effects and feels they are helpful. Psychiatric ROS notable for PTSD symptoms of night terrors, no history of acute sebastian, no history of self-harm. Past Psychiatric History Current Psychiatric Diagnosis: PTSD, BP2, [place], MDD Outpatient Services: psychiatric provider Miladis Falcon through [place] [place] and therapist Patricia through [facility] [place]. 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 [facility] for 7 years and stopped going 1 1/2 months ago. Completed mobile psych rehab. Previous Psych Admissions: [facility] but she cannot recall the year, [facility] in 2014, [facility] September 2020 Do You Have Access To A Gun?: No History of Previous Suicide Attempt: Yes Describe Attempts in the Past: 2x via overdose, last overdose in 2020 via medications Past Medication Trials: hx of trazodone, ineffective Past Head Trauma/Neuro History History of Concussion/Seizure: Yes (hx concussion, last year fell did not have LOC ) Allergies Allergy/AdvReac Type Severity Reaction Status Date / Time bee venom protein (honey bee) Allergy Severe ANAPHYLAXIS Verified 06/03/21 20:52 morphine AdvReac Intermediate HALLUCINATI Verified 06/03/21 20:52 ONS Home Medications Medication Instructions Recorded Confirmed Type cyclobenzaprine 10 mg tablet 10 mg PO AMHS 01/10/18 10/27/21 History docusate sodium 100 mg capsule 100 mg PO QAM 01/10/18 10/27/21 History (Colace) epinephrine 0.3 mg/0.3 mL 0.3 mg IM DIRECTED PRN Severe 01/10/18 10/27/21 History injection, auto-injector (EpiPen) Allergic Reaction ferrous sulfate 325 mg (65 mg 325 mg PO QAM 01/10/18 10/27/21 History iron) tablet (Feosol) fluticasone furoate 200 1 inh inhalation QAM 01/10/18 10/27/21 History mcg-vilanterol 25 mcg/dose inhalation powder (Breo Ellipta) fluticasone propionate 50 2 spray intranasal DAILY PRN 01/10/18 10/27/21 History mcg/actuation nasal Allergy Symptoms spray,suspension (Flonase Allergy Relief) gabapentin 800 mg tablet 800 mg PO TID 01/10/18 10/27/21 History levothyroxine 50 mcg tablet 50 mcg PO DAILYBB 01/10/18 10/27/21 History pantoprazole 40 mg tablet,delayed 40 mg PO QAM 01/10/18 10/27/21 History release (Protonix) rizatriptan 10 mg tablet (Maxalt) 10 mg PO DIRECTED PRN Migraine 01/10/18 10/27/21 History Headache topiramate 200 mg tablet (Topamax) 200 mg PO AMHS 05/25/18 10/27/21 History amitriptyline 25 mg tablet 25 mg PO HS 06/19/18 10/27/21 History prazosin 2 mg capsule (Minipress) 4 mg PO HS 06/19/18 10/27/21 History cetirizine 10 mg tablet (Zyrtec) 10 mg PO QAM 09/20/18 10/27/21 History Lactobacillus comb 1 cap PO QAM 10/14/18 10/27/21 History no.5-[id number] 300 million cell-250 mg capsule (Probiotic and Acidophilus) hydroxyzine pamoate 50 mg capsule 150 mg PO HS 10/14/18 10/27/21 History (Vistaril) onabotulinumtoxinA 200 unit 155 unit IM .Q12 WEEKS 10/14/18 10/27/21 History solution for injection (Botox) magnesium oxide 400 mg PO QAM 04/07/19 10/27/21 History gabapentin 300 mg capsule 300 mg PO TID 08/08/19 10/27/21 History (Neurontin) lamotrigine 200 mg tablet 200 mg PO QAM 08/08/19 10/27/21 History (Lamictal) ondansetron 4 mg disintegrating 4 mg PO Q8H PRN Nausea 08/08/19 10/27/21 History tablet cranberry 500 mg capsule 500 mg PO QAM 02/14/20 10/27/21 History cyanocobalamin (vitamin B-12) 1,000 mcg PO QAM 02/14/20 10/27/21 History 1,000 mcg tablet (Vitamin B-12) norethindrone 1.5 mg-ethinyl 1 tab PO QAM 02/14/20 10/27/21 History estradiol 30 mcg(21)/iron 75 mg(7) tablet (June FE 1.5/30 (28)) lisinopril 5 mg tablet 5 mg PO QAM 09/15/20 10/27/21 History duloxetine 60 mg capsule,delayed 60 mg PO QAM 03/04/21 10/27/21 History release dicyclomine 20 mg tablet 20 mg PO Q6 PRN Muscle Spasm 10/28/21 10/28/21 History famotidine 20 mg tablet 20 mg PO HS 10/28/21 10/28/21 History metformin 500 mg tablet,extended 500 mg PO QDD 10/28/21 10/28/21 History release 24 hr Family History Family History of: Depression (father) Family Mental Health History Comment: Alcohol History Hx of Alcohol Use Over the Past 12 Months: No AUDIT Total Score: 0 Smoking Use Have You Smoked or Used Tobacco Products in the Last 30 Days: No Smoking Status: Never smoker Smoking packs per day: 0 Substance History Hx of Prescription Med Misuse Over the Past 12 Months: No Hx of Over the Counter Med Misuse Over the Past 12 Months: No Hx of Inhalent Misuse Over the Past 12 Months: No Hx of Organic Substance Use Over the Past 12 Months: No Hx of Illegal Substances/Street Drug Use Over Past 12 Months: No Problems as a Result of Past Substance Use: None Identified Personal History Living Arrangements: Apartment (with her mother) Childhood: Has brothers and sisters. Involved in her denominational community which is a good support. 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 coli septicemia Fibroadenoma of breast RT Fibromyalgia GERD (gastroesophageal reflux disease) Hx of prolonged Q-T interval on ECG PER PT'S MEDICAL RECORD FROM PCP OFFICE. Hypothyroidism Irregular menses Kidney stone Migraine Obesity PCO (polycystic ovaries) Peripheral neuropathy Poor historian PTSD (post-traumatic stress disorder) Pyelonephritis Recurrent UTI Sleep apnea NO CPAP Surgical History H/O lithotripsy History of ankle surgery RT History of breast biopsy RT History of cystoscopy Hx of cholecystectomy Hx of colonoscopy Hx of knee surgery RT Status post labral repair of shoulder RT Family History Father Heart disease Other No significant family history Social History Smoking Status: Never smoker Second Hand Exposure: No; Hx Alcohol Use: No Hx Substance Use: No Preferred Language: Greek Communication Ability: Effective Organic Chemist Required: No Beliefs That Will Affect Care: Congregation Congregation Beliefs: does not affect treatment and Spiritual Spiritual Healthcare Practices: does not affect treatment marital status: Single Current Living Situation: Family Current Living Situation Comment: At home with mother current occupational status: disabled Feels Safe at Home: Yes Assistive Devices: Glasses Review of Systems Review of Systems: All systems reviewed & are unremarkable except as noted in HPI & below (chronic back pain ) Physical Exam Psychiatric: Orientation: alert and oriented x 3 Apperance: appropriately dressed and appropriately groomed Eye Contact: good eye contact Motor Behavior: no abnormal motor movements Speech: normal rate/rhythm/volume of speech Affect: + depressed affect, + anxious affect and + tearful affect Mood: + depressed mood and + anxious mood Thought Process: goal directed thought process Thought Content: reality based without delusions Suicidal Thoughts: denies suicidal intent; + reports suicidal thoughts (intermittent passive thoughts currently, had plan prior to admission ) and + reports suicidal plan (had plan prior to admission but none since admission) Homicidal Thoughts: denies homicidal thoughts Hallucinations: no auditory hallucination s and no visual hallucinations Cognition: recent memory grossly intact, remote memory grossly intact, attention grossly intact and language grossly intact Estimated Intelligence: + below average estimated intelligence Insight: + fair insight Judgement: + fair judgement Vital Signs (Past 24 Hours): Last Vital Signs Temp 37.1 C 10/28/21 06:36 Pulse 89 10/28/21 06:36 Resp 16 10/28/21 06:34 BP 108/83 10/28/21 06:36 Pulse Ox 100 10/27/21 20:48 O2 Del Method 10/27/21 20:48 Exam Statement: A physical exam was performed in the ED by Dr. Bond for the purposes of medical clearance. I accept that physical as correct and adequate for the purposes of the inpatient physical exam. Results & Data ([facility]) Laboratory Results Laboratory Results - last 24 hr 10/27/21 10/27/21 10/27/21 15:53 16:29 16:29 WBC 11.26 H RBC 4.26 Hgb 12.9 Hct 40.2 MCV 94.4 MCH 30.3 MCHC 32.1 RDW Std Deviation 43.7 RDW Coeff of Kailee 12.7 Plt Count 369 MPV 9.0 L Immature Gran % (Auto) 1.2 Neut % (Auto) 63.8 Lymph % (Auto) 25.8 [place] % (Auto) 6.6 Eos % (Auto) 1.8 Baso % (Auto) 0.8 Neut # (Auto) 7.20 H Lymph # (Auto) 2.90 [place] # (Auto) 0.74 Eos # (Auto) 0.20 Baso # (Auto) 0.09 Immature Gran # (Auto) 0.13 H Sodium 138 Potassium 3.7 Chloride 113 H Carbon Dioxide 19 L Anion Gap 6 BUN 18 Creatinine 0.84 Est Cr Clr Drug Dosing 88.9 Est GFR ( Amer) 95.3 Est GFR (Non-Af Amer) 82.2 BUN/Creatinine Ratio 21.4 H Glucose 99 Calcium 8.6 Total Bilirubin 0.2 AST 15 ALT 18 Alkaline Phosphatase 48 Troponin I High Sens 2.6 Total Protein 8.0 Albumin 4.2 Globulin 3.8 Albumin/Globulin Ratio 1.1 TSH Free T4 HCG, Qual Urine Color Dark Yellow Urine Appearance Cloudy A Urine pH 5.5 Ur Specific [place] 1.023 Urine Protein Negative Urine Glucose (UA) Negative Urine Ketones Negative Urine Blood Negative Urine Nitrite Negative Urine Bilirubin Negative Urine Urobilinogen Negative Ur Leukocyte Esterase 2+ H Urine WBC (Auto) >30 H Urine RBC (Auto) 0-4 U Hyaline Cast (Auto) >30 H U Epithel Cells (Auto) >30 H Urine Bacteria (Auto) 3+ H Urine Crystals Not Reportable Calcium Oxalate Crystal Present A Salicylates Urine Opiates Screen Ur Methadone, Qual Acetaminophen Urine Barbiturates Ur Phencyclidine (PCP) U Amphetamin/Meth Scrn MDMA (Ecstasy) Screen U Benzodiazepines Scrn Ur Cocaine Metabolite U Marijuana (THC) Screen Ethyl Alcohol mg/dL SARS-CoV-2, RNA, NAAT 10/27/21 10/27/21 10/27/21 16:29 16:29 16:29 WBC RBC Hgb Hct MCV MCH MCHC RDW Std Deviation RDW Coeff of Kailee Plt Count MPV Immature Gran % (Auto) Neut % (Auto) Lymph % (Auto) [place] % (Auto) Eos % (Auto) Baso % (Auto) Neut # (Auto) Lymph # (Auto) [place] # (Auto) Eos # (Auto) Baso # (Auto) Immature Gran # (Auto) Sodium Potassium Chloride Carbon Dioxide Anion Gap BUN Creatinine Est Cr Clr Drug Dosing Est GFR ( Amer) Est GFR (Non-Af Amer) BUN/Creatinine Ratio Glucose Calcium Total Bilirubin AST ALT Alkaline Phosphatase Troponin I High Sens Total Protein Albumin Globulin Albumin/Globulin Ratio TSH 0.266 L Free T4 0.80 HCG, Qual Urine Color Urine Appearance Urine pH Ur Specific [place] Urine Protein Urine Glucose (UA) Urine Ketones Urine Blood Urine Nitrite Urine Bilirubin Urine Urobilinogen Ur Leukocyte Esterase Urine WBC (Auto) Urine RBC (Auto) U Hyaline Cast (Auto) U Epithel Cells (Auto) Urine Bacteria (Auto) Urine Crystals Calcium Oxalate Crystal Salicylates < 3.0 L Urine Opiates Screen Ur Methadone, Qual Acetaminophen < 3 L Urine Barbiturates Ur Phencyclidine (PCP) U Amphetamin/Meth Scrn MDMA (Ecstasy) Screen U Benzodiazepines Scrn Ur Cocaine Metabolite U Marijuana (THC) Screen Ethyl Alcohol mg/dL < 10.0 SARS-CoV-2, RNA, NAAT 10/27/21 10/27/21 10/27/21 16:29 16:29 16:29 WBC RBC Hgb Hct MCV MCH MCHC RDW Std Deviation RDW Coeff of [place] Plt Count MPV Immature Gran % (Auto) Neut % (Auto) Lymph % (Auto) [place] % (Auto) Eos % (Auto) Baso % (Auto) Neut # (Auto) Lymph # (Auto) [place] # (Auto) Eos # (Auto) Baso # (Auto) Immature Gran # (Auto) Sodium Potassium Chloride Carbon Dioxide Anion Gap BUN Creatinine Est Cr Clr Drug Dosing Est GFR ( Amer) Est GFR (Non-Af Amer) BUN/Creatinine Ratio Glucose Calcium Total Bilirubin AST ALT Alkaline Phosphatase Troponin I High Sens Total Protein Albumin Globulin Albumin/Globulin Ratio TSH Free T4 HCG, Qual Negative Urine Color Urine Appearance Urine pH Ur Specific [place] Urine Protein Urine Glucose (UA) Urine Ketones Urine Blood Urine Nitrite Urine Bilirubin Urine Urobilinogen Ur Leukocyte Esterase Urine WBC (Auto) Urine RBC (Auto) U Hyaline Cast (Auto) U Epithel Cells (Auto) Urine Bacteria (Auto) Urine Crystals Calcium Oxalate Crystal Salicylates Urine Opiates Screen Neg Ur Methadone, Qual Neg Acetaminophen Urine Barbiturates Neg Ur Phencyclidine (PCP) Neg U Amphetamin/Meth Scrn Neg MDMA (Ecstasy) Screen Neg U Benzodiazepines Scrn Neg Ur Cocaine Metabolite Neg U Marijuana (THC) Screen Neg Ethyl Alcohol mg/dL SARS-CoV-2, RNA, NAAT NEGATIVE Current Inpatient Medications Current Inpatient Medications: Current Inpatient Medications Acetaminophen (Acetaminophen 325 Mg Tab) 650 mg PO Q4H PRN PRN Reason: Headache or Minor Fever Stop: 11/26/21 20:04 Al Hydrox/Mg Hydrox/Simethicone (Aluminum/Magnesium Susp 30 Ml Udc) 30 ml PO Q4H PRN PRN Reason: GI Upset Stop: 11/26/21 20:04 Albuterol (Albuterol Hfa 8 Gm Inhaler) 2 puffs INH Q4 PRN PRN Reason: Shortness Of Breath Stop: 11/26/21 22:20 Amitriptyline HCl (Amitriptyline Hcl 25 Mg Tab) 25 mg PO HS VALERI Stop: 11/26/21 21:59 Last Admin: 10/27/21 22:03 Dose: 25 mg Bismuth Subsalicylate (Bismuth Subsalicylate Liqd 236 Ml) 15 ml PO PRN PRN PRN Reason: Loose Stool Stop: 11/26/21 20:04 Cephalexin HCl (Cephalexin 500 Mg Cap) 500 mg PO BID VALERI Stop: 11/01/21 20:59 Last Admin: 10/27/21 19:19 Dose: 500 mg Cyclobenzaprine HCl (Cyclobenzaprine Hcl 10 Mg Tab) 10 mg PO BID VALERI Stop: 11/26/21 20:59 Last Admin: 10/27/21 22:02 Dose: 10 mg Famotidine (Famotidine 20 Mg Tab) 20 mg PO HS VALERI Stop: 11/26/21 21:59 Last Admin: 10/27/21 22:03 Dose: 20 mg Fluticasone/Vilanterol (Fluticasone/Vilanterol 200/25mcg 14 Puffs/Inhaler) 1 puffs INH DAILY VALERI Stop: 11/27/21 08:59 Gabapentin (Gabapentin 800 Mg Tab) 800 mg PO TID VALERI Stop: 11/26/21 20:59 Last Admin: 10/27/21 22:02 Dose: 800 mg Gabapentin (Gabapentin 300 Mg Cap) 300 mg PO TID VALERI Stop: 11/26/21 20:59 Last Admin: 10/27/21 22:03 Dose: 300 mg Hydroxyzine HCl (Hydroxyzine Hcl 25 Mg Tab) 150 mg PO HSZ VALERI Stop: 11/16/21 22:01 Last Admin: 10/27/21 22:04 Dose: 150 mg Magnesium Hydroxide (Magnesium Hydroxide Susp 30 Ml Udc) 30 ml PO DAILY PRN PRN Reason: Constipation Stop: 11/26/21 20:04 Non-Formulary Patient's Own Med - June Fe 1 each PO QAM VALERI Stop: 11/27/21 08:59 Prazosin HCl (Prazosin Hcl 1 Mg Cap) 4 mg PO HS VALERI Stop: 11/26/21 21:59 Last Admin: 10/27/21 22:04 Dose: 4 mg Sodium Chloride (Sodium Chloride 0.65% Na Soln 45 Ml ([place])) 1 - 2 sprays NA PRN PRN PRN Reason: Nasal Dryness/Congestion Stop: 11/26/21 20:04 Topiramate (Topiramate 100 Mg Tab) 200 mg PO BID VALERI Stop: 11/26/21 20:59 Last Admin: 10/27/21 22:03 Dose: 200 mg
[2021-10-28] MEDS: cephALEXin 500 MG CAP PO SCH ×2 (08:33→21:13)
[2021-10-28] MEDS: GABAPENTIN 300 MG CAP PO SCH ×3 (08:33→21:13)
[2021-10-28] MEDS: CYCLOBENZAPRINE HCL 10 MG TAB PO SCH ×2 (08:33→21:13)
[2021-10-28] MEDS: GABAPENTIN 800 MG TAB PO SCH ×3 (08:33→21:13)
[2021-10-28] MEDS: TOPIRAMATE 100 MG TAB PO SCH ×2 (08:33→21:14)
[2021-10-28] MEDS: JUNEL FE PO SCH (08:34)
[2021-10-28] MEDS: ACETAMINOPHEN 325 MG TAB PO PRN (08:40)
[2021-10-28] MEDS ORDERED: FLUTICASONE/VILANTEROL 200/25MCG 14 PUFFS/INHALER INH SCH (09:00)
[2021-10-28] MEDS ORDERED: NON-FORMULARY PATIENT'S OWN MED INH SCH (09:00)
[2021-10-28] MEDS ORDERED: NON-FORMULARY PATIENT'S OWN MED PO SCH (09:00)
--- NOTE | 2021-10-28 11:08 | Electrocardiogram Report ---
Test Reason : Blood Pressure : / mmHG Vent. Rate : 083 BPM Atrial Rate : 083 BPM P-R Int : 176 ms QRS Dur : 102 ms QT Int : 384 ms P-R-T Axes : 002 -16 013 degrees QTc Int : 451 ms Sinus rhythm with Premature atrial complexes Otherwise normal ECG When compared with ECG of 04-MAR-2021 20:38, Premature atrial complexes are now Present Confirmed by Hilario Gaming ([id number]) on 10/28/2021 11:07:46 AM Referred By: REFERRED SELF Confirmed By:Hilario Gaming
[2021-10-28] MEDS ORDERED: FLUTICASONE PROPIONATE NA SPR 16 GM BTL PRN (11:17)
[2021-10-28] MEDS ORDERED: RIZATRIPTAN BENZOATE 10 MG TAB PO PRN (11:17)
[2021-10-28] MEDS ORDERED: DICYCLOMINE HCL 20 MG TAB PO PRN (11:17)
[2021-10-28] MEDS ORDERED: NON-FORMULARY MEDICATION (Cranberry 500 mg Capsule) PO SCH (11:30)
[2021-10-28] MEDS: CETIRIZINE HCL 10 MG TABLET PO SCH (11:55)
[2021-10-28] MEDS: CYANOCOBALAMIN (B-12) 500 MCG TABLET PO SCH (11:56)
[2021-10-28] MEDS: DOCUSATE SODIUM 100 MG CAP PO SCH (11:58)
[2021-10-28] MEDS: DULoxetine HCL 60 MG CAP PO SCH (11:59)
[2021-10-28] MEDS: FERROUS SULFATE 325 MG TAB PO SCH (11:59)
[2021-10-28] MEDS: lamoTRIgine 100 MG TAB PO SCH (12:01)
[2021-10-28] MEDS: FLUTICASONE/VILANTEROL 200/25MCG 14 PUFFS/INHALER INH SCH (12:01)
[2021-10-28] MEDS: lisinopril 5 MG TAB PO SCH (12:02)
[2021-10-28] MEDS: PANTOprazole 40 MG TAB PO SCH (12:02)
[2021-10-28] MEDS: LIDOCAINE 5% 1 PATCH TD SCH (13:22)
[2021-10-28] MEDS: metFORMIN HCL ER 500 MG TABCR PO SCH (17:29)
[2021-10-28] MEDS: AMITRIPTYLINE HCL 25 MG TAB PO SCH (21:14)
[2021-10-28] MEDS: PRAZOSIN HCL 1 MG CAP PO SCH (21:14)
[2021-10-28] MEDS: FAMOTIDINE 20 MG TAB PO SCH (21:14)
[2021-10-28] MEDS: hydrOXYzine HCl 25 MG TAB PO SCH (21:15)
[2021-10-29] MEDS: LEVOTHYROXINE SODIUM 50 MCG TABLET PO SCH (07:52)
[2021-10-29] MEDS: cephALEXin 500 MG CAP PO SCH ×2 (07:58→21:17)
[2021-10-29] MEDS: DOCUSATE SODIUM 100 MG CAP PO SCH (07:58)
[2021-10-29] MEDS: CYCLOBENZAPRINE HCL 10 MG TAB PO SCH ×2 (07:58→21:19)
[2021-10-29] MEDS: CETIRIZINE HCL 10 MG TABLET PO SCH (07:58)
[2021-10-29] MEDS: CYANOCOBALAMIN (B-12) 500 MCG TABLET PO SCH (07:58)
[2021-10-29] MEDS: DULoxetine HCL 60 MG CAP PO SCH (07:59)
[2021-10-29] MEDS: lamoTRIgine 100 MG TAB PO SCH (07:59)
[2021-10-29] MEDS: TOPIRAMATE 100 MG TAB PO SCH ×2 (07:59→21:18)
[2021-10-29] MEDS: lisinopril 5 MG TAB PO SCH (08:01)
[2021-10-29] MEDS: FERROUS SULFATE 325 MG TAB PO SCH (08:01)
[2021-10-29] MEDS: PANTOprazole 40 MG TAB PO SCH (08:01)
[2021-10-29] MEDS: GABAPENTIN 800 MG TAB PO SCH ×3 (08:01→21:17)
[2021-10-29] MEDS: GABAPENTIN 300 MG CAP PO SCH ×3 (08:03→21:18)
[2021-10-29] MEDS: LIDOCAINE 5% 1 PATCH TD SCH (08:06)
[2021-10-29] MEDS: JUNEL FE PO SCH (08:06)
[2021-10-29] MEDS: FLUTICASONE/VILANTEROL 200/25MCG 14 PUFFS/INHALER INH SCH (08:08)
[2021-10-29] MEDS ORDERED: ONDANSETRON 4 MG OD TAB PO PRN (12:59)
--- NOTE | 2021-10-29 15:19 | Psychiatric Progress Note ---
Date of Service October 29, 2021 Impression / Recommendations Impression The patient is a 46 year old with a history of depression, anxiety, PTSD, possible BPAD type II, chronic back pain with a history of two prior suicide attempts via overdose who was admitted for worsening depression and SI with plan of overdosing. Diagnostically consistent with MDD with anxious distress with significant contribution from complicated bereavement and possible worsening mood due to her hypothyroidism (TSH was low but free T4 is normal). The patient is deemed unstable and requires psychiatric hospitalization for diagnostic clarification, safety and stabilization, medication management and development of further coping skills. Grief 10/29/21: Continues to have depression largely related to grief and the anniversary of her father's , processed how she can feel like a burden to others and how this impacts her ability to ask for help and discuss her emotions. Continues to have SI. Reviewed option to try mirtazapine for sleep and mood, she prefers to continue with her current medications given potential for weight gain which she wants to avoid. (1) Bipolar 2 disorder, major depressive episode: (2) MDD (major depressive disorder), recurrent episode, moderate: (3) Depression with suicidal ideation: (4) Complicated bereavement: (5) PTSD (post-traumatic stress disorder): (6) Anxiety: Plan 10/29/21: Continue current medications and tx plan. 10/28/21: The patient was admitted to the [facility] ([facility] mental health unit) on q15 min checks (behavioral with suicide precautions) for safety. The patient will participate in group, recreational, and milieu therapies and will be offered additional individual and family sessions as clinically appropriate. -will add lidocaine patch prn and heating pad for back pain -Continue Cymbalta 60mg qd, gabapentin 1100mg TID, lamictal 200mg qd, topimax 200mg BID, prazosin 4mg qhs, hydroxyzine 150mg qhs, amitriptyline 25mg qhs -coordinate with her mother and outpatient resources Inventory Assets Strengths: good support from family, strong faith ties/community, good rapport with outpatient providers Needs: safety and stabilization, possible medication adjustment, additional coping skills, increased outpatient services Suicide Risk Level Suicide Risk Level Comments: High-Moderate due to severe depression with SI with plan prior to admission but feels safe in the hospital, able to safety contract and agrees to let nursing/staff know should they develop plan, intent or feel unable to remain safe. Risk Factors Assessment : Yes Do You Have Access To A Gun?: No Health Problems: Yes Mental Health Diagnoses: Yes Previous Attempt: Yes Previous Psychiatric Hospitalization: Yes Hopelessness: Yes Protective Factors Assessment Employed: No Stable Relationships: Yes Supportive Family: Yes Good Rapport with Provider: Yes Interval History Identifying Information DONALD RAMIREZ is a 46-year-old F who currently lives in [place] with her mother, has a history of PTSD, depression, anxiety and BPAD type II, and was admitted on 10/27/21 20:05 on a 201 voluntary commitment for depression with SI [facility] plan of overdosing on medication. Chief Complaint "I have a really hard time talking to her about how I feel". Review of Systems Sleep Information Total Hours of Sleep: 6 Sleep Comments: pt given vistaril per rn. pt on q-15 minute checks Meal Information Percent Meal Consumed - Breakfast: 100 Percent Meal Consumed - Lunch: 100 Percent Meal Consumed - Dinner: 100 Subjective Subjective Patient was seen & assessed and interval progress reviewed with treatment team nursing and social work. Today Donald reports ongoing depression and anxiety related to grief. She continues to have periods of SI but notes "They're a little better" today. She slept well last night. 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 She notes that she spoke with her mom and feels guilty for being in the hospital but that the stress of her father's upcoming anniversary of his makes her feel unable to remain safe outside of the hospital. She notes that her mother wondered why her emotional support dog wasn't enough to keep her out of the hospital and we processed how this made her feel. She notes that she doesn't want to be a burden to her mother, as she is older and works hard and has medical issues but that this makes it hard "for me to tell her how I feel". Physical Exam Psychiatric Orientation: alert and oriented x 3 Apperance: appropriately dressed and appropriately groomed Eye Contact: good eye contact Motor Behavior: no abnormal motor movements Speech: normal rate/rhythm/volume of speech Affect: + depressed affect and + tearful affect Mood: + depressed mood and + anxious mood Thought Process: goal directed thought process Thought Content: reality based without delusions Suicidal Thoughts: denies suicidal plan (had plan prior to admission but none since admission) and denies suicidal intent; + reports suicidal thoughts (intermittent thoughts currently, had plan prior to admission ) Homicidal Thoughts: denies homicidal thoughts Hallucinations: no auditory hallucinations and no visual hallucinations Cognition: recent memory grossly intact, remote memory grossly intact, attention grossly intact and language grossly intact Estimated Intelligence: consistent with education level and + below average estimated intelligence Insight: + fair insight Judgement: + fair judgement Vital Signs (Past 24 Hours) Last Vital Signs Temp 36.8 C 10/29/21 06:34 Pulse 90 10/29/21 06:35 Resp 16 10/29/21 06:34 BP 92/63 L 10/29/21 06:35 Pulse Ox 100 10/27/21 20:48 O2 Del Method 10/27/21 20:48 Results & Data ([facility]) Current Inpatient Medications Current Inpatient Medications: Current Inpatient Medications Acetaminophen (Acetaminophen 325 Mg Tab) 650 mg PO Q4H PRN PRN Reason: Headache or Minor Fever Stop: 11/26/21 20:04 Last Admin: 10/28/21 08:40 Dose: 650 mg Al Hydrox/Mg Hydrox/Simethicone (Aluminum/Magnesium Susp 30 Ml Udc) 30 ml PO Q4H PRN PRN Reason: GI Upset Stop: 11/26/21 20:04 Amitriptyline HCl (Amitriptyline Hcl 25 Mg Tab) 25 mg PO HS VALERI Stop: 11/27/21 21:59 Last Admin: 10/28/21 21:14 Dose: 25 mg Bismuth Subsalicylate (Bismuth Subsalicylate Liqd 236 Ml) 15 ml PO PRN PRN PRN Reason: Loose Stool Stop: 11/26/21 20:04 Cephalexin HCl (Cephalexin 500 Mg Cap) 500 mg PO BID VALERI Stop: 11/01/21 20:59 Last Admin: 10/29/21 07:58 Dose: 500 mg Cetirizine HCl (Cetirizine Hcl 10 Mg Tablet) 10 mg PO QAM [facility] Stop: 11/27/21 11:29 Last Admin: 10/29/21 07:58 Dose: 10 mg Cyanocobalamin (Cyanocobalamin (B-12) 500 Mcg Tablet) 1,000 mcg PO QAM [facility] Stop: 11/27/21 11:29 Last Admin: 10/29/21 07:58 Dose: 1,000 mcg Cyclobenzaprine HCl (Cyclobenzaprine Hcl 10 Mg Tab) 10 mg PO AMHS [facility]I Stop: 11/27/21 20:59 Last Admin: 10/29/21 07:58 Dose: 10 mg Dicyclomine HCl (Dicyclomine Hcl 20 Mg Tab) 20 mg PO Q6 PRN PRN Reason: Muscle Spasm Stop: 11/27/21 11:16 Docusate Sodium (Docusate Sodium 100 Mg Cap) 100 mg PO QAM [facility]I Stop: 11/27/21 11:29 Last Admin: 10/29/21 07:58 Dose: 100 mg Duloxetine HCl (Duloxetine Hcl 60 Mg Cap) 60 mg PO QAM [facility] Stop: 11/27/21 11:29 Last Admin: 10/29/21 07:59 Dose: 60 mg Famotidine (Famotidine 20 Mg Tab) 20 mg PO HS [facility]ERI Stop: 11/27/21 21:59 Last Admin: 10/28/21 21:14 Dose: 20 mg Ferrous Sulfate (Ferrous Sulfate 325 Mg Tab) 325 mg PO QAM [facility]I Stop: 11/27/21 11:29 Last Admin: 10/29/21 08:01 Dose: 325 mg Fluticasone Propionate (Fluticasone Propionate Na Spr 16 Gm Btl) 2 sprays NA DAILY PRN PRN Reason: Allergy Symptoms Stop: 11/27/21 11:16 Fluticasone/Vilanterol (Fluticasone/Vilanterol 200/25mcg 14 Puffs/Inhaler) 1 puffs INH QAM [facility]ERI Stop: 11/27/21 11:29 Last Admin: 10/29/21 08:08 Dose: 1 puffs Gabapentin (Gabapentin 800 Mg Tab) 800 mg PO TID VALERI Stop: 11/27/21 13:59 Last Admin: 10/29/21 13:45 Dose: 800 mg Gabapentin (Gabapentin 300 Mg Cap) 300 mg PO TID [facility]I Stop: 11/27/21 13:59 Last Admin: 10/29/21 13:45 Dose: 300 mg Hydroxyzine HCl (Hydroxyzine Hcl 25 Mg Tab) 150 mg PO HS VALERI Stop: 11/27/21 21:59 Last Admin: 10/28/21 21:15 Dose: 150 mg Lamotrigine (Lamotrigine 100 Mg Tab) 200 mg PO QAM [facility] Stop: 11/27/21 11:29 Last Admin: 10/29/21 07:59 Dose: 200 mg Levothyroxine Sodium (Levothyroxine Sodium 50 Mcg Tablet) 50 mcg PO DAILYBB [facility] Stop: 11/28/21 07:59 Last Admin: 10/29/21 07:52 Dose: 50 mcg Lidocaine (Lidocaine 5% 1 Patch) 1 patch TD QAM [facility] Stop: 11/27/21 12:44 Last Admin: 10/29/21 08:06 Dose: 1 patch Lisinopril (Lisinopril 5 Mg Tab) 5 mg PO QAM [facility] Stop: 11/27/21 11:29 Last Admin: 10/29/21 08:01 Dose: Not Given Magnesium Hydroxide (Magnesium Hydroxide Susp 30 Ml Udc) 30 ml PO DAILY PRN PRN Reason: Constipation Stop: 11/26/21 20:04 Metformin HCl (Metformin Hcl Er 500 Mg Tabcr) 500 mg PO QDD [facility] Stop: 11/27/21 17:44 Last Admin: 10/28/21 17:29 Dose: 500 mg Miscellaneous (Remove Lidoderm Patch) 1 each N/A DAILY@2100 [facility] Stop: 11/27/21 20:59 Last Admin: 10/28/21 21:13 Dose: 1 each Non-Formulary Patient's Own Med - June Fe 1 each PO QAM [facility] Stop: 11/27/21 08:59 Last Admin: 10/29/21 08:06 Dose: 1 tabs Ondansetron HCl (Ondansetron 4 Mg Od Tab) 4 mg PO Q8H PRN PRN Reason: Nausea Stop: 11/28/21 12:58 Last Admin: 10/29/21 13:49 Dose: 4 mg Pantoprazole Sodium (Pantoprazole 40 Mg Tab) 40 mg PO QAM [facility] Stop: 11/27/21 11:29 Last Admin: 10/29/21 08:01 Dose: 40 mg Prazosin HCl (Prazosin Hcl 1 Mg Cap) 4 mg PO HS [facility] Stop: 11/27/21 21:59 Last Admin: 10/28/21 21:14 Dose: 4 mg Rizatriptan Benzoate (Rizatriptan Benzoate 10 Mg Tab) 10 mg PO DAILY PRN PRN Reason: Migraine Headache Stop: 11/27/21 11:16 Last Admin: 10/28/21 12:22 Dose: 10 mg Sodium Chloride (Sodium Chloride 0.65% Na Soln 45 Ml ([place])) 1 - 2 sprays NA PRN PRN PRN Reason: Nasal Dryness/Congestion Stop: 11/26/21 20:04 Topiramate (Topiramate 100 Mg Tab) 200 mg PO AMHS [facility] Stop: 11/27/21 20:59 Last Admin: 10/29/21 07:59 Dose: 200 mg Mental Health & Subst Abuse Tx Psychiatrist Name of Psychiatrist: Jn Pereira Psychiatrist's Psychiatric Appointment Comment: [address] [facility] Therapist Name of Therapist: Jn Freeman Therapist's Date of Therapist Appointment: 11/03/21 Therapy Appointment Comment: [address] [facility] 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
[2021-10-29] MEDS: metFORMIN HCL ER 500 MG TABCR PO SCH (17:13)
[2021-10-29] MEDS: ACETAMINOPHEN 325 MG TAB PO PRN (18:55)
[2021-10-29] MEDS: PRAZOSIN HCL 1 MG CAP PO SCH (21:17)
[2021-10-29] MEDS: AMITRIPTYLINE HCL 25 MG TAB PO SCH (21:18)
[2021-10-29] MEDS: hydrOXYzine HCl 25 MG TAB PO SCH (21:19)
[2021-10-29] MEDS: FAMOTIDINE 20 MG TAB PO SCH (21:20)
[2021-10-30] MEDS: LEVOTHYROXINE SODIUM 50 MCG TABLET PO SCH (07:24)
[2021-10-30] MEDS: LIDOCAINE 5% 1 PATCH TD SCH (07:24)
[2021-10-30] MEDS: JUNEL FE PO SCH (08:04)
[2021-10-30] MEDS: GABAPENTIN 800 MG TAB PO SCH ×3 (08:04→21:12)
[2021-10-30] MEDS: TOPIRAMATE 100 MG TAB PO SCH ×2 (08:05→21:11)
[2021-10-30] MEDS: lamoTRIgine 100 MG TAB PO SCH (08:06)
[2021-10-30] MEDS: cephALEXin 500 MG CAP PO SCH ×2 (08:06→21:13)
[2021-10-30] MEDS: PANTOprazole 40 MG TAB PO SCH (08:06)
[2021-10-30] MEDS: DULoxetine HCL 60 MG CAP PO SCH (08:06)
[2021-10-30] MEDS: CYANOCOBALAMIN (B-12) 500 MCG TABLET PO SCH (08:06)
[2021-10-30] MEDS: lisinopril 5 MG TAB PO SCH (08:07)
[2021-10-30] MEDS: DOCUSATE SODIUM 100 MG CAP PO SCH (08:07)
[2021-10-30] MEDS: CETIRIZINE HCL 10 MG TABLET PO SCH (08:07)
[2021-10-30] MEDS: CYCLOBENZAPRINE HCL 10 MG TAB PO SCH ×2 (08:07→21:12)
[2021-10-30] MEDS: FLUTICASONE/VILANTEROL 200/25MCG 14 PUFFS/INHALER INH SCH (08:07)
[2021-10-30] MEDS: FERROUS SULFATE 325 MG TAB PO SCH (08:07)
[2021-10-30] MEDS: GABAPENTIN 300 MG CAP PO SCH ×3 (08:07→21:12)
--- NOTE | 2021-10-30 11:40 | Psychiatric Progress Note ---
Date of Service October 30, 2021 Impression / Recommendations Impression The patient is a 46 year old with a history of depression, anxiety, PTSD, possible BPAD type II, chronic back pain with a history of two prior suicide attempts via overdose who was admitted for worsening depression and SI with plan of overdosing. Diagnostically consistent with MDD with anxious distress with significant contribution from complicated bereavement and possible worsening mood due to her hypothyroidism (TSH was low but free T4 is normal). The patient is deemed unstable and requires psychiatric hospitalization for diagnostic clarification, safety and stabilization, medication management and development of further coping skills. Grief 10/30/21: improving but can be attention seeking (1) Bipolar 2 disorder, major depressive episode: (2) MDD (major depressive disorder), recurrent episode, moderate: (3) Depression with suicidal ideation: (4) Complicated bereavement: (5) PTSD (post-traumatic stress disorder): (6) Anxiety: Plan 10/30/21: continue current meds and tx plan. Patient has significant polypharmacy already and her residual symptoms can be addressed psychosocial, does need to remain hospitalized through anniversary. Family session tomorrow. 10/29/21: Continue current medications and tx plan. 10/28/21: The patient was admitted to the [facility] on q15 min checks (behavioral with suicide precautions) for safety. The patient will participate in group, recreational, and milieu therapies and will be offered additional individual and family sessions as clinically appropriate. -will add lidocaine patch prn and heating pad for back pain -Continue Cymbalta 60mg qd, gabapentin 1100mg TID, lamictal 200mg qd, topimax 200mg BID, prazosin 4mg qhs, hydroxyzine 150mg qhs, amitriptyline 25mg qhs -coordinate with her mother and outpatient resources Inventory Assets Strengths: good support from family, strong denominational ties/community, good rapport with outpatient providers Needs: safety and stabilization, possible medication adjustment, additional coping skills, increased outpatient services Suicide Risk Level Suicide Risk Level: Moderate (q15 min suicide checks) Suicide Risk Level Comments: no intent/plan in hospital, contracts to go to staff. Risk Factors Assessment : Yes Do You Have Access To A Gun?: No Health Problems: Yes Mental Health Diagnoses: Yes Previous Attempt: Yes Previous Psychiatric Hospitalization: Yes Hopelessness: Yes Protective Factors Assessment Employed: No Stable Relationships: Yes Supportive Family: Yes Good Rapport with Provider: Yes Interval History Identifying Information DONALD RAMIREZ is a 46-year-old F who currently lives in [place] with her mother, has a history of PTSD, depression, anxiety and BPAD type II, and was admitted on 10/27/21 20:05 on a 201 voluntary commitment for depression with SI h plan of overdosing on medication. Chief Complaint "just when I think about my mom saying things to me I don't want to be alive." Review of Systems Sleep Information Total Hours of Sleep: 7 Sleep Comments: pt given vistaril per rn. pt on q-15 minute checks Meal Information Percent Meal Consumed - Breakfast: 100 Percent Meal Consumed - Lunch: 100 Percent Meal Consumed - Dinner: 100 Subjective Subjective Patient was seen & assessed and interval progress reviewed with treatment team. Patient has been bright and attentive to groups. Anniversary of father's is tomorrow (#11). Feels she has a harder time communicating with her mother around her grief than with her family friend ("spiritual mom.") Physical Exam Psychiatric Orientation: alert and oriented x 3 Apperance: appropriately dressed and appropriately groomed Eye Contact: good eye contact Motor Behavior: no abnormal motor movements Speech: normal rate/rhythm/volume of speech Affect: + depressed affect, + anxious affect and + tearful affect Mood: + depressed mood and + anxious mood Thought Process: goal directed thought process Thought Content: reality based without delusions Suicidal Thoughts: denies suicidal plan (had plan prior to admission but none since admission) and denies suicidal intent; + reports suicidal thoughts (intermittent thoughts currently, had plan prior to admission ) Homicidal Thoughts: denies homicidal thoughts Hallucinations: no auditory hallucinations and no visual hallucinations Cognition: recent memory grossly intact, remote memory grossly intact, attention grossly intact and language grossly intact Estimated Intelligence: consistent with education level and + below average estimated intelligence Insight: + fair insight Judgement: + fair judgement Vital Signs (Past 24 Hours) Last Vital Signs Temp 36.7 C 10/30/21 06:27 Pulse 92 H 10/30/21 06:28 Resp 16 10/30/21 06:27 BP 124/81 10/30/21 06:28 Pulse Ox 100 10/27/21 20:48 O2 Del Method 10/27/21 20:48 Results & Data ([facility]) Current Inpatient Medications Current Inpatient Medications: Current Inpatient Medications Acetaminophen (Acetaminophen 325 Mg Tab) 650 mg PO Q4H PRN PRN Reason: Headache or Minor Fever Stop: 11/26/21 20:04 Last Admin: 10/29/21 18:55 Dose: 650 mg Al Hydrox/Mg Hydrox/Simethicone (Aluminum/Magnesium Susp 30 Ml Udc) 30 ml PO Q4H PRN PRN Reason: GI Upset Stop: 11/26/21 20:04 Amitriptyline HCl (Amitriptyline Hcl 25 Mg Tab) 25 mg PO HS [facility]I Stop: 11/27/21 21:59 Last Admin: 10/29/21 21:18 Dose: 25 mg Bismuth Subsalicylate (Bismuth Subsalicylate Liqd 236 Ml) 15 ml PO PRN PRN PRN Reason: Loose Stool Stop: 11/26/21 20:04 Cephalexin HCl (Cephalexin 500 Mg Cap) 500 mg PO BID [facility] Stop: 11/01/21 20:59 Last Admin: 10/30/21 08:06 Dose: 500 mg Cetirizine HCl (Cetirizine Hcl 10 Mg Tablet) 10 mg PO QAM [facility] Stop: 11/27/21 11:29 Last Admin: 10/30/21 08:07 Dose: 10 mg Cyanocobalamin (Cyanocobalamin (B-12) 500 Mcg Tablet) 1,000 mcg PO QAM [facility] Stop: 11/27/21 11:29 Last Admin: 10/30/21 08:06 Dose: 1,000 mcg Cyclobenzaprine HCl (Cyclobenzaprine Hcl 10 Mg Tab) 10 mg PO AMHS [facility] Stop: 11/27/21 20:59 Last Admin: 10/30/21 08:07 Dose: 10 mg Dicyclomine HCl (Dicyclomine Hcl 20 Mg Tab) 20 mg PO Q6 PRN PRN Reason: Muscle Spasm Stop: 11/27/21 11:16 Docusate Sodium (Docusate Sodium 100 Mg Cap) 100 mg PO QAM [facility] Stop: 11/27/21 11:29 Last Admin: 10/30/21 08:07 Dose: 100 mg Duloxetine HCl (Duloxetine Hcl 60 Mg Cap) 60 mg PO QAM [facility] Stop: 11/27/21 11:29 Last Admin: 10/30/21 08:06 Dose: 60 mg Famotidine (Famotidine 20 Mg Tab) 20 mg PO HS [facility] Stop: 11/27/21 21:59 Last Admin: 10/29/21 21:20 Dose: 20 mg Ferrous Sulfate (Ferrous Sulfate 325 Mg Tab) 325 mg PO QAM [facility] Stop: 11/27/21 11:29 Last Admin: 10/30/21 08:07 Dose: 325 mg Fluticasone Propionate (Fluticasone Propionate Na Spr 16 Gm Btl) 2 sprays NA DAILY PRN PRN Reason: Allergy Symptoms Stop: 11/27/21 11:16 Fluticasone/Vilanterol (Fluticasone/Vilanterol 200/25mcg 14 Puffs/Inhaler) 1 puffs INH QAM [facility] Stop: 11/27/21 11:29 Last Admin: 10/30/21 08:07 Dose: 1 puffs Gabapentin (Gabapentin 800 Mg Tab) 800 mg PO TID [facility] Stop: 11/27/21 13:59 Last Admin: 10/30/21 08:04 Dose: 800 mg Gabapentin (Gabapentin 300 Mg Cap) 300 mg PO TID [facility] Stop: 11/27/21 13:59 Last Admin: 10/30/21 08:07 Dose: 300 mg Hydroxyzine HCl (Hydroxyzine Hcl 25 Mg Tab) [address] [facility] Stop: 11/27/21 21:59 Last Admin: 10/29/21 21:19 Dose: 150 mg Lamotrigine (Lamotrigine 100 Mg Tab) 200 mg PO QAM [facility] Stop: 11/27/21 11:29 Last Admin: 10/30/21 08:06 Dose: 200 mg Levothyroxine Sodium (Levothyroxine Sodium 50 Mcg Tablet) 50 mcg PO DAILYBB [facility] Stop: 11/28/21 07:59 Last Admin: 10/30/21 07:24 Dose: 50 mcg Lidocaine (Lidocaine 5% 1 Patch) [facility] Stop: 11/27/21 12:44 Last Admin: 10/30/21 07:24 Dose: 1 patch Lisinopril (Lisinopril 5 Mg Tab) 5 mg PO QAM [facility] Stop: 11/27/21 11:29 Last Admin: 10/30/21 08:07 Dose: 5 mg Magnesium Hydroxide (Magnesium Hydroxide Susp 30 Ml Udc) 30 ml PO DAILY PRN PRN Reason: Constipation Stop: 11/26/21 20:04 Metformin HCl (Metformin Hcl Er 500 Mg Tabcr) 500 mg PO QDD [facility] Stop: 11/27/21 17:44 Last Admin: 10/29/21 17:13 Dose: 500 mg Miscellaneous (Remove Lidoderm Patch) 1 each N/A DAILY@2100 [facility] Stop: 11/27/21 20:59 Last Admin: 10/29/21 19:35 Dose: 1 each Non-Formulary Patient's Own Med - [place] Fe 1 each PO QAM [facility] Stop: 11/27/21 08:59 Last Admin: 10/30/21 08:04 Dose: 1 tabs Ondansetron HCl (Ondansetron 4 Mg Od Tab) 4 mg PO Q8H PRN PRN Reason: Nausea Stop: 11/28/21 12:58 Last Admin: 10/29/21 13:49 Dose: 4 mg Pantoprazole Sodium (Pantoprazole 40 Mg Tab) 40 mg PO QAM [facility] Stop: 11/27/21 11:29 Last Admin: 10/30/21 08:06 Dose: 40 mg Prazosin HCl (Prazosin Hcl 1 Mg Cap) 4 mg PO HS [facility] Stop: 11/27/21 21:59 Last Admin: 10/29/21 21:17 Dose: 4 mg Rizatriptan Benzoate (Rizatriptan Benzoate 10 Mg Tab) 10 mg PO DAILY PRN PRN Reason: Migraine Headache Stop: 11/27/21 11:16 Last Admin: 10/28/21 12:22 Dose: 10 mg Sodium Chloride (Sodium Chloride 0.65% Na Soln 45 Ml ([place])) 1 - 2 sprays NA PRN PRN PRN Reason: Nasal Dryness/Congestion Stop: 11/26/21 20:04 Topiramate (Topiramate 100 Mg Tab) 200 mg PO AMHS [facility] Stop: 11/27/21 20:59 Last Admin: 10/30/21 08:05 Dose: 200 mg Mental Health & Subst Abuse Tx Psychiatrist 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
[2021-10-30] MEDS: metFORMIN HCL ER 500 MG TABCR PO SCH (16:54)
[2021-10-30] MEDS: PRAZOSIN HCL 1 MG CAP PO SCH (21:09)
[2021-10-30] MEDS: FAMOTIDINE 20 MG TAB PO SCH (21:10)
[2021-10-30] MEDS: hydrOXYzine HCl 25 MG TAB PO SCH (21:10)
[2021-10-30] MEDS: AMITRIPTYLINE HCL 25 MG TAB PO SCH (21:11)
[2021-10-30] MEDS: CAPSAICIN CR 0.075% 60 GM TUBE EXT SCH (21:13)
[2021-10-31] MEDS: LEVOTHYROXINE SODIUM 50 MCG TABLET PO SCH (07:41)
[2021-10-31] MEDS: LIDOCAINE 5% 1 PATCH TD SCH (08:24)
[2021-10-31] MEDS: FLUTICASONE/VILANTEROL 200/25MCG 14 PUFFS/INHALER INH SCH (08:26)
[2021-10-31] MEDS: FERROUS SULFATE 325 MG TAB PO SCH (08:26)
[2021-10-31] MEDS: DOCUSATE SODIUM 100 MG CAP PO SCH (08:26)
[2021-10-31] MEDS: CETIRIZINE HCL 10 MG TABLET PO SCH (08:26)
[2021-10-31] MEDS: lamoTRIgine 100 MG TAB PO SCH (08:26)
[2021-10-31] MEDS: lisinopril 5 MG TAB PO SCH (08:26)
[2021-10-31] MEDS: TOPIRAMATE 100 MG TAB PO SCH ×2 (08:26→21:45)
[2021-10-31] MEDS: DULoxetine HCL 60 MG CAP PO SCH (08:27)
[2021-10-31] MEDS: PANTOprazole 40 MG TAB PO SCH (08:27)
[2021-10-31] MEDS: CYANOCOBALAMIN (B-12) 500 MCG TABLET PO SCH (08:27)
[2021-10-31] MEDS: JUNEL FE PO SCH (08:27)
[2021-10-31] MEDS: CYCLOBENZAPRINE HCL 10 MG TAB PO SCH ×2 (08:27→21:46)
[2021-10-31] MEDS: cephALEXin 500 MG CAP PO SCH ×2 (08:27→21:47)
[2021-10-31] MEDS: GABAPENTIN 800 MG TAB PO SCH ×3 (08:27→21:46)
[2021-10-31] MEDS: GABAPENTIN 300 MG CAP PO SCH ×3 (08:27→21:46)
[2021-10-31] MEDS: CAPSAICIN CR 0.075% 60 GM TUBE EXT SCH ×2 (08:34→21:48)
--- NOTE | 2021-10-31 11:22 | Psychiatric Progress Note ---
Date of Service October 31, 2021 Impression / Recommendations Impression The patient is a 46 year old with a history of depression, anxiety, PTSD, possible BPAD type II, chronic back pain with a history of two prior suicide attempts via overdose who was admitted for worsening depression and SI with plan of overdosing. Diagnostically consistent with MDD with anxious distress with significant contribution from complicated bereavement and possible worsening mood due to her hypothyroidism (TSH was low but free T4 is normal). 10/31/21: somatic at times but improved coping overall (1) Bipolar 2 disorder, major depressive episode: (2) MDD (major depressive disorder), recurrent episode, moderate: (3) Depression with suicidal ideation: (4) Complicated bereavement: (5) PTSD (post-traumatic stress disorder): (6) Anxiety: Plan 10/31/21: started capsaicin cream for concerns of feet tingling, safety planning 10/30/21: continue current meds and tx plan. Patient has significant polypharmacy already and her residual symptoms can be addressed psychosocial, does need to remain hospitalized through anniversary. Family session tomorrow. 10/29/21: Continue current medications and tx plan. 10/28/21: The patient was admitted to the [facility] ([facility]) on q15 min checks (behavioral with suicide precautions) for safety. The patient will participate in group, recreational, and milieu therapies and will be offered additional individual and family sessions as clinically appropriate. -will add lidocaine patch prn and heating pad for back pain -Continue Cymbalta 60mg qd, gabapentin 1100mg TID, lamictal 200mg qd, topimax 200mg BID, prazosin 4mg qhs, hydroxyzine 150mg qhs, amitriptyline 25mg qhs -coordinate with her mother and outpatient resources Inventory Assets Strengths: good support from family, strong nondenominational ties/community, good rapport with outpatient providers Needs: safety and stabilization, possible medication adjustment, additional coping skills, increased outpatient services Suicide Risk Level Suicide Risk Level: Moderate (q15 min suicide checks) Suicide Risk Level Comments: no intent/plan in hospital, contracts to go to staff. Risk Factors Assessment : Yes Do You Have Access To A Gun?: No Health Problems: Yes Mental Health Diagnoses: Yes Previous Attempt: Yes Previous Psychiatric Hospitalization: Yes Hopelessness: Yes Protective Factors Assessment Employed: No Stable Relationships: Yes Supportive Family: Yes Good Rapport with Provider: Yes Interval History Identifying Information DONALD RAMIREZ is a 46-year-old F who currently lives in [place] with her mother, has a history of PTSD, depression, anxiety and BPAD type II, and was admitted on 10/27/21 20:05 on a 201 voluntary commitment for depression with SI [facility] plan of overdosing on medication. Chief Complaint "I cried alot but it went well" referring to family meeting. Review of Systems Sleep Information Total Hours of Sleep: 7 Sleep Comments: pt given vistaril per rn. pt on q-15 minute checks Meal Information Percent Meal Consumed - Breakfast: 100 Percent Meal Consumed - Lunch: 100 Percent Meal Consumed - Dinner: 100 Subjective Subjective Patient was seen & assessed and interval progress reviewed with nursing and social work. Somatic yesterday. Referring to passive SI in the context of questioning her appropriateness for discharge planning. Today referenced the anniversary of father's . Reached out to friends. tolerated family meeting. rates mood as a 2 in group but is then laughing soon after in day room. Physical Exam Psychiatric Orientation: alert Apperance: appropriately dressed and appropriately groomed Eye Contact: good eye contact Motor Behavior: no abnormal motor movements Speech: normal rate/rhythm/volume of speech Affect: euthymic affect Mood: + depressed mood Thought Process: goal directed thought process Thought Content: reality based without delusions Suicidal Thoughts: denies suicidal thoughts Homicidal Thoughts: denies homicidal thoughts Hallucinations: no auditory hallucinations and no visual hallucinations Cognition: attention grossly intact and language grossly intact Estimated Intelligence: consistent with education level Insight: + limited insight Judgement: + limited judgement Vital Signs (Past 24 Hours) Last Vital Signs Temp 36.9 C 10/31/21 06:43 Pulse 92 H 10/31/21 06:44 Resp 16 10/31/21 06:43 BP 121/70 10/31/21 06:44 Pulse Ox 100 10/27/21 20:48 O2 Del Method 10/27/21 20:48 Results & Data ([facility]) Current Inpatient Medications Current Inpatient Medications: Current Inpatient Medications Acetaminophen (Acetaminophen 325 Mg Tab) 650 mg PO Q4H PRN PRN Reason: Headache or Minor Fever Stop: 11/26/21 20:04 Last Admin: 10/29/21 18:55 Dose: 650 mg Al Hydrox/Mg Hydrox/Simethicone (Aluminum/Magnesium Susp 30 Ml Udc) 30 ml PO Q4H PRN PRN Reason: GI Upset Stop: 11/26/21 20:04 Amitriptyline HCl (Amitriptyline Hcl 25 Mg Tab) 25 mg PO HS VALERI Stop: 11/27/21 21:59 Last Admin: 10/30/21 21:11 Dose: 25 mg Bismuth Subsalicylate (Bismuth Subsalicylate Liqd 236 Ml) 15 ml PO PRN PRN PRN Reason: Loose Stool Stop: 11/26/21 20:04 Capsaicin (Capsaicin Cr 0.075% 60 Gm Tube) 1 appln EXT BID VALERI Stop: 11/29/21 20:59 Last Admin: 10/31/21 08:34 Dose: 1 appln Cephalexin HCl (Cephalexin 500 Mg Cap) 500 mg PO BID VALERI Stop: 11/01/21 20:59 Last Admin: 10/31/21 08:27 Dose: 500 mg Cetirizine HCl (Cetirizine Hcl 10 Mg Tablet) 10 mg PO QAM VALERI Stop: 11/27/21 11:29 Last Admin: 10/31/21 08:26 Dose: 10 mg Cyanocobalamin (Cyanocobalamin (B-12) 500 Mcg Tablet) 1,000 mcg PO QAM VALERI Stop: 11/27/21 11:29 Last Admin: 10/31/21 08:27 Dose: 1,000 mcg Cyclobenzaprine HCl (Cyclobenzaprine Hcl 10 Mg Tab) 10 mg PO AMHS [facility]ERI Stop: 11/27/21 20:59 Last Admin: 10/31/21 08:27 Dose: 10 mg Dicyclomine HCl (Dicyclomine Hcl 20 Mg Tab) 20 mg PO Q6 PRN PRN Reason: Muscle Spasm Stop: 11/27/21 11:16 Docusate Sodium (Docusate Sodium 100 Mg Cap) 100 mg PO QAM VALERI Stop: 11/27/21 11:29 Last Admin: 10/31/21 08:26 Dose: 100 mg Duloxetine HCl (Duloxetine Hcl 60 Mg Cap) 60 mg PO QAM [facility]ERI Stop: 11/27/21 11:29 Last Admin: 10/31/21 08:27 Dose: 60 mg Famotidine (Famotidine 20 Mg Tab) 20 mg PO HS VALERI Stop: 11/27/21 21:59 Last Admin: 10/30/21 21:10 Dose: 20 mg Ferrous Sulfate (Ferrous Sulfate 325 Mg Tab) 325 mg PO QAM [facility] Stop: 11/27/21 11:29 Last Admin: 10/31/21 08:26 Dose: 325 mg Fluticasone Propionate (Fluticasone Propionate Na Spr 16 Gm Btl) 2 sprays NA DAILY PRN PRN Reason: Allergy Symptoms Stop: 11/27/21 11:16 Fluticasone/Vilanterol (Fluticasone/Vilanterol 200/25mcg 14 Puffs/Inhaler) 1 puffs INH QAM VALERI Stop: 11/27/21 11:29 Last Admin: 10/31/21 08:26 Dose: 1 puffs Gabapentin (Gabapentin 800 Mg Tab) 800 mg PO TID [facility] Stop: 11/27/21 13:59 Last Admin: 10/31/21 08:27 Dose: 800 mg Gabapentin (Gabapentin 300 Mg Cap) 300 mg PO TID [facility]ERI Stop: 11/27/21 13:59 Last Admin: 10/31/21 08:27 Dose: 300 mg Hydroxyzine HCl (Hydroxyzine Hcl 25 Mg Tab) 150 mg PO HS [facility] Stop: 11/27/21 21:59 Last Admin: 10/30/21 21:10 Dose: 150 mg Lamotrigine (Lamotrigine 100 Mg Tab) 200 mg PO QAM [facility] Stop: 11/27/21 11:29 Last Admin: 10/31/21 08:26 Dose: 200 mg Levothyroxine Sodium (Levothyroxine Sodium 50 Mcg Tablet) 50 mcg PO DAILYBB [facility] Stop: 11/28/21 07:59 Last Admin: 10/31/21 07:41 Dose: 50 mcg Lidocaine (Lidocaine 5% 1 Patch) 1 patch TD QAM [facility] Stop: 11/27/21 12:44 Last Admin: 10/31/21 08:24 Dose: 1 patch Lisinopril (Lisinopril 5 Mg Tab) 5 mg PO QAM [facility] Stop: 11/27/21 11:29 Last Admin: 10/31/21 08:26 Dose: 5 mg Magnesium Hydroxide (Magnesium Hydroxide Susp 30 Ml Udc) 30 ml PO DAILY PRN PRN Reason: Constipation Stop: 11/26/21 20:04 Metformin HCl (Metformin Hcl Er 500 Mg Tabcr) 500 mg PO QDD [facility] Stop: 11/27/21 17:44 Last Admin: 10/30/21 16:54 Dose: 500 mg Miscellaneous (Remove Lidoderm Patch) 1 each N/A DAILY@2100 [facility] Stop: 11/27/21 20:59 Last Admin: 10/30/21 21:12 Dose: 1 each Non-Formulary Patient's Own Med - Junel Fe 1 each PO QAM [facility] Stop: 11/27/21 08:59 Last Admin: 10/31/21 08:27 Dose: 1 tabs Ondansetron HCl (Ondansetron 4 Mg Od Tab) 4 mg PO Q8H PRN PRN Reason: Nausea Stop: 11/28/21 12:58 Last Admin: 10/29/21 13:49 Dose: 4 mg Pantoprazole Sodium (Pantoprazole 40 Mg Tab) 40 mg PO QAM [facility] Stop: 11/27/21 11:29 Last Admin: 10/31/21 08:27 Dose: 40 mg Prazosin HCl (Prazosin Hcl 1 Mg Cap) 4 mg PO HS [facility] Stop: 11/27/21 21:59 Last Admin: 10/30/21 21:09 Dose: 4 mg Rizatriptan Benzoate (Rizatriptan Benzoate 10 Mg Tab) 10 mg PO DAILY PRN PRN Reason: Migraine Headache Stop: 11/27/21 11:16 Last Admin: 10/28/21 12:22 Dose: 10 mg Sodium Chloride (Sodium Chloride 0.65% Na Soln 45 Ml ([place])) 1 - 2 sprays NA PRN PRN PRN Reason: Nasal Dryness/Congestion Stop: 11/26/21 20:04 Topiramate (Topiramate 100 Mg Tab) 200 mg PO AMHS [facility] Stop: 11/27/21 20:59 Last Admin: 10/31/21 08:26 Dose: 200 mg Mental Health & Subst Abuse Tx Psychiatrist Name of Psychiatrist: Jn Pereira Psychiatrist's Date of Appointment with Psychiatrist: 10/21/21 Time of Appointment with Psychiatrist: 11:20am Psychiatric Appointment Comment: [facility] Therapist Name of Therapist: Jn Freeman Therapist's Date of Therapist Appointment: 11/03/21 Time of Therapist Appointment: 11am Therapy Appointment Comment: [address] [facility] [place], [place] Physical Science Technician Name of Physical Science Technician: [employer] [facility] - Nancy Ramirez Post Discharge Appointments Primary Care Physician Name Of Family Doctor: William Khan Primary [facility] Date of Appointment with PCP: 11/07/21 Time of Appointment with PCP: 12:05 PM Provider Appointment Comment: Alona Alexander, [place] [id number] Contact Information Discharge Discharge Address: [address] [place] [address], [address]
[2021-10-31] MEDS: metFORMIN HCL ER 500 MG TABCR PO SCH (17:28)
[2021-10-31] MEDS: PRAZOSIN HCL 1 MG CAP PO SCH (21:42)
[2021-10-31] MEDS: hydrOXYzine HCl 25 MG TAB PO SCH (21:43)
[2021-10-31] MEDS: AMITRIPTYLINE HCL 25 MG TAB PO SCH (21:44)
[2021-10-31] MEDS: FAMOTIDINE 20 MG TAB PO SCH (21:44)
[2021-11-01] MEDS: LEVOTHYROXINE SODIUM 50 MCG TABLET PO SCH (07:53)
[2021-11-01] MEDS: CETIRIZINE HCL 10 MG TABLET PO SCH (08:59)
[2021-11-01] MEDS: cephALEXin 500 MG CAP PO SCH (08:59)
[2021-11-01] MEDS: DOCUSATE SODIUM 100 MG CAP PO SCH (09:00)
[2021-11-01] MEDS: CYCLOBENZAPRINE HCL 10 MG TAB PO SCH (09:00)
[2021-11-01] MEDS: CYANOCOBALAMIN (B-12) 500 MCG TABLET PO SCH (09:00)
[2021-11-01] MEDS: DULoxetine HCL 60 MG CAP PO SCH (09:00)
[2021-11-01] MEDS: FLUTICASONE/VILANTEROL 200/25MCG 14 PUFFS/INHALER INH SCH (09:01)
[2021-11-01] MEDS: FERROUS SULFATE 325 MG TAB PO SCH (09:01)
[2021-11-01] MEDS: GABAPENTIN 300 MG CAP PO SCH (09:02)
[2021-11-01] MEDS: GABAPENTIN 800 MG TAB PO SCH (09:02)
[2021-11-01] MEDS: PANTOprazole 40 MG TAB PO SCH (09:03)
[2021-11-01] MEDS: lamoTRIgine 100 MG TAB PO SCH (09:03)
[2021-11-01] MEDS: lisinopril 5 MG TAB PO SCH (09:04)
[2021-11-01] MEDS: LIDOCAINE 5% 1 PATCH TD SCH (09:04)
[2021-11-01] MEDS: TOPIRAMATE 100 MG TAB PO SCH (09:05)
[2021-11-01] MEDS: JUNEL FE PO SCH (09:05)
--- NOTE | 2021-11-01 09:39 | Discharge Summary ---
Date of Service November 01, 2021 History of Present Illness As per Dr. Milian on admission: Sada presents for psychiatric admission for worsening depression and SI with plan to overdose on medication in the context of multiple recent psychosocial stressors including the upcoming anniversary of her father's and recently leaving the [facility] after 7 years. She endorses depressive symptoms including hopelessness, helplessness, self-guilt, worthlessness, decreased sleep (average 3-4 hours per night), anhedonia, no change in appetite and SI with plan of overdosing on her medication. She's also been experiencing an increase in anxiety especially in the evenings. She informed the contracting manager on 10/27/21 that: "Sada stated she was doing well up until recently. She stated she became more involved in the zoroastrian which helped her self esteem. She stated she has been under a lot of stress recently. She stated she swore at her mother and has a great deal of guilt. Sada stated she recently got a therapy dog and "I feel terrible for leaving him with my mother while I am in the hospital." She has been taking her current psychiatric medications for the last 3-4 years. Her Vistaril was recently increased about one month ago to help with sleep and anxiety. She denies any medication side effects and feels they are helpful. Psychiatric ROS notable for PTSD symptoms of night terrors, no history of acute sebastian, no history of self-harm. Physical Exam Mental Examination See admission H&P and DOD assessment. Vital Signs (Past 24 Hours) Last Vital Signs Temp 36.7 C 11/01/21 06:34 Pulse 93 H 11/01/21 06:34 Resp 16 11/01/21 06:34 BP 127/79 11/01/21 06:34 Pulse Ox 100 10/27/21 20:48 O2 Del Method 10/27/21 20:48 Principal Diagnosis major depressive disorder Psychiatric Data See daily stay summary. In short, safety was maintained and the patient was cooperative with care. Focus was on processing grief and providing support around the anniversary of father's . She preferred to continue medications unchanged. A family session was held with the patient's mother and safety plan was completed prior to discharge. Day of Discharge Assessment Today the patient voices readiness for discharge. They note improvement in mood and deny thoughts to harm self or others. Thoughts remain organized and they are improved from admission. There is no evidence of psychosis. They agree to take mediations as prescribed and keep follow-up appointments. They are stable for discharge to outpatient level of care. Transition of Care Transition Of Care Record: was reviewed with the patient Advance Directives Advance Directives Information Provided: Yes Advance Directives: Yes Mental Health Advance Directive: No Advance Directives on File: No ("I have one at home") Living Will: No Power of Security Installer: No Advance Directives Reason:: Declines as Mental Health Visit. Suicide Risk Level Suicide Risk Level Comments: no intent/plan in hospital, contracts to go to staff. Risk Factors Assessment : Yes Do You Have Access To A Gun?: No Health Problems: Yes Mental Health Diagnoses: Yes Previous Attempt: Yes Previous Psychiatric Hospitalization: Yes Hopelessness: Yes Protective Factors Assessment Employed: No Stable Relationships: Yes Supportive Family: Yes Good Rapport with Provider: Yes Tobacco Cessation at Discharge Tobacco Cessation Medication Prescribed at Discharge: Not Applicable/Non-Smoker Total Time Total Time Spent: Greater Than 30 Minutes Total Time Includes: Examination of the patient, Discharge Planning and Medication Reconciliation Discharge Data Lab Results 10/27/21 10/27/21 10/27/21 15:53 16:29 16:29 WBC 11.26 H RBC 4.26 Hgb 12.9 Hct 40.2 MCV 94.4 MCH 30.3 MCHC 32.1 RDW Std Deviation 43.7 RDW Coeff of Kailee 12.7 Plt Count 369 MPV 9.0 L Immature Gran % (Auto) 1.2 Neut % (Auto) 63.8 Lymph % (Auto) 25.8 Dawes % (Auto) 6.6 Eos % (Auto) 1.8 Baso % (Auto) 0.8 Neut # (Auto) 7.20 H Lymph # (Auto) 2.90 Dawes # (Auto) 0.74 Eos # (Auto) 0.20 Baso # (Auto) 0.09 Immature Gran # (Auto) 0.13 H Sodium 138 Potassium 3.7 Chloride 113 H Carbon Dioxide 19 L Anion Gap 6 BUN 18 Creatinine 0.84 Est Cr Clr Drug Dosing 88.9 Est GFR ( Amer) 95.3 Est GFR (Non-Af Amer) 82.2 BUN/Creatinine Ratio 21.4 H Glucose 99 Calcium 8.6 Total Bilirubin 0.2 AST 15 ALT 18 Alkaline Phosphatase 48 Troponin I High Sens 2.6 Total Protein 8.0 Albumin 4.2 Globulin 3.8 Albumin/Globulin Ratio 1.1 TSH Free T4 HCG, Qual Urine Color Dark Yellow Urine Appearance Cloudy A Urine pH 5.5 Ur Specific Mendon 1.023 Urine Protein Negative Urine Glucose (UA) Negative Urine Ketones Negative Urine Blood Negative Urine Nitrite Negative Urine Bilirubin Negative Urine Urobilinogen Negative Ur Leukocyte Esterase 2+ H Urine WBC (Auto) >30 H Urine RBC (Auto) 0-4 U Hyaline Cast (Auto) >30 H U Epithel Cells (Auto) >30 H Urine Bacteria (Auto) 3+ H Urine Crystals Not Reportable Calcium Oxalate Crystal Present A Salicylates Urine Opiates Screen Ur Methadone, Qual Acetaminophen Urine Barbiturates Ur Phencyclidine (PCP) U Amphetamin/Meth Scrn MDMA (Ecstasy) Screen U Benzodiazepines Scrn Ur Cocaine Metabolite U Marijuana (THC) Screen Ethyl Alcohol mg/dL SARS-CoV-2, RNA, NAAT 10/27/21 10/27/21 10/27/21 16:29 16:29 16:29 WBC RBC Hgb Hct MCV MCH MCHC RDW Std Deviation RDW Coeff of Kailee Plt Count MPV Immature Gran % (Auto) Neut % (Auto) Lymph % (Auto) Dawes % (Auto) Eos % (Auto) Baso % (Auto) Neut # (Auto) Lymph # (Auto) Dawes # (Auto) Eos # (Auto) Baso # (Auto) Immature Gran # (Auto) Sodium Potassium Chloride Carbon Dioxide Anion Gap BUN Creatinine Est Cr Clr Drug Dosing Est GFR ( Amer) Est GFR (Non-Af Amer) BUN/Creatinine Ratio Glucose Calcium Total Bilirubin AST ALT Alkaline Phosphatase Troponin I High Sens Total Protein Albumin Globulin Albumin/Globulin Ratio TSH 0.266 L Free T4 0.80 HCG, Qual Urine Color Urine Appearance Urine pH Ur Specific Mendon Urine Protein Urine Glucose (UA) Urine Ketones Urine Blood Urine Nitrite Urine Bilirubin Urine Urobilinogen Ur Leukocyte Esterase Urine WBC (Auto) Urine RBC (Auto) U Hyaline Cast (Auto) U Epithel Cells (Auto) Urine Bacteria (Auto) Urine Crystals Calcium Oxalate Crystal Salicylates < 3.0 L Urine Opiates Screen Ur Methadone, Qual Acetaminophen < 3 L Urine Barbiturates Ur Phencyclidine (PCP) U Amphetamin/Meth Scrn MDMA (Ecstasy) Screen U Benzodiazepines Scrn Ur Cocaine Metabolite U Marijuana (THC) Screen Ethyl Alcohol mg/dL < 10.0 SARS-CoV-2, RNA, NAAT 10/27/21 10/27/21 10/27/21 16:29 16:29 16:29 WBC RBC Hgb Hct MCV MCH MCHC RDW Std Deviation RDW Coeff of Kailee Plt Count MPV Immature Gran % (Auto) Neut % (Auto) Lymph % (Auto) Dawes % (Auto) Eos % (Auto) Baso % (Auto) Neut # (Auto) Lymph # (Auto) Dawes # (Auto) Eos # (Auto) Baso # (Auto) Immature Gran # (Auto) Sodium Potassium Chloride Carbon Dioxide Anion Gap BUN Creatinine Est Cr Clr Drug Dosing Est GFR ( Amer) Est GFR (Non-Af Amer) BUN/Creatinine Ratio Glucose Calcium Total Bilirubin AST ALT Alkaline Phosphatase Troponin I High Sens Total Protein Albumin Globulin Albumin/Globulin Ratio TSH Free T4 HCG, Qual Negative Urine Color Urine Appearance Urine pH Ur Specific [place]on Urine Protein Urine Glucose (UA) Urine Ketones Urine Blood Urine Nitrite Urine Bilirubin Urine Urobilinogen Ur Leukocyte Esterase Urine WBC (Auto) Urine RBC (Auto) U Hyaline Cast (Auto) U Epithel Cells (Auto) Urine Bacteria (Auto) Urine Crystals Calcium Oxalate Crystal Salicylates Urine Opiates Screen Neg Ur Methadone, Qual Neg Acetaminophen Urine Barbiturates Neg Ur Phencyclidine (PCP) Neg U Amphetamin/Meth Scrn Neg MDMA (Ecstasy) Screen Neg U Benzodiazepines Scrn Neg Ur Cocaine Metabolite Neg U Marijuana (THC) Screen Neg Ethyl Alcohol mg/dL SARS-CoV-2, RNA, NAAT NEGATIVE Hospital Course (1) Bipolar 2 disorder, major depressive episode: (2) MDD (major depressive disorder), recurrent episode, moderate: (3) Depression with suicidal ideation: (4) Complicated bereavement: (5) PTSD (post-traumatic stress disorder): (6) Anxiety: Plan 10/31/21: started capsaicin cream for concerns of feet tingling, safety planning 10/30/21: continue current meds and tx plan. Patient has significant polypharmacy already and her residual symptoms can be addressed psychosocial, does need to remain hospitalized through anniversary. Family session tomorrow. 10/29/21: Continue current medications and tx plan. 10/28/21: The patient was admitted to the [facility] (locked inpatient mental health unit) on q15 min checks (behavioral with suicide precautions) for safety. The patient will participate in group, recreational, and milieu therapies and will be offered additional individual and family sessions as clinically appropriate. -will add lidocaine patch prn and heating pad for back pain -Continue Cymbalta 60mg qd, gabapentin 1100mg TID, lamictal 200mg qd, topimax 200mg BID, prazosin 4mg qhs, hydroxyzine 150mg qhs, amitriptyline 25mg qhs -coordinate with her mother and outpatient resources Mental Health & Subst Abuse Tx Psychiatrist Name of Psychiatrist: [facility] Psych[facility]'s Date of Appointment with Psychiatrist: 10/21/21 Time of Appointment with Psychiatrist: 11:20am Psychiatric Appointment Comment: [address] [facility] Therapist Name of Therapist: nJ [facility] Therapist's Date of Therapist Appointment: 11/03/21 Time of Therapist Appointment: 11am Therapy Appointment Comment: [address] [facility] Behavioral Therapy Coordinator Name of Behavioral Therapy Coordinator: [facility] - Nancy Ramirez Post Discharge Appointments Primary Care Physician Name Of Family Doctor: William Khan Primary [facility] Date of Appointment with PCP: 11/07/21 Time of Appointment with PCP: 12:05 PM Provider Appointment Comment: [address], [place] [address] Smoking Cessation Counseling Tobacco Cessation Medication Prescribed at Discharge: Not Applicable/Non-Smoker Contact Information Discharge Discharge Address: [address] [place] [address] Discharge Plan Discharge Items Patient Disposition: Home - Self-Care Reason For Visit: MDD WITH SI Discharge Diagnosis: major depressive disorder Activity: Resume your previous activity Non-emergency contact: Primary Care Provider, Psychiatrist and Therapist Call non-emergency contact if: you have any medication questions and your symptoms worsen Follow-up/Referrals: Dennis Khan MD [Primary Care Provider] - Diet: Regular Addtl Attending Provider Instructions: SPECIAL CARE INSTRUCTIONS: 1. Follow through with your scheduled aftercare appointments. If unable to keep an appointment, please call to reschedule. 2. Take your medication only as prescribed. Medication should not be changed or stopped without the approval of your doctor. In the event of worsening symptoms or concerns about side effects, contact your doctor immediately. 3. Utilize new healthy coping skills, anger management skills, and stress management skills learned during your hospitalization. Journal feelings and process them with a support person. Identify stressors or situations that may result in relapse, deterioration or inappropriate behaviors and develop a plan to deal with those issues. 4. If your coping skills are ineffective and you are in crisis, contact your outpatient providers for direction. If unable to reach your providers, please call the [facility] CRISIS LINE AT , go to the [facility] walk-in center at [address], [address], [place], or go to the closest Emergency Room. 5. Avoid alcohol and un-prescribed drugs. 6. You have been provided with the Mental Health Advance Directives Pamphlet for your review. 7. Your condition is stable for discharge to outpatient level of care, but recovery is an ongoing process. Ifthoughts to harm yourself or others return, follow the safety plan developed during your stay. Planning for a safe return home includes securing weapons. Our treatment team recommends weaponsbe removed from the home until your outpatient provider reassesses your progress. In rare cases where the items themselvescannot be removed, guns and ammunitionshould be secured separatelyand keys stored by a reliable personoutside of the home. If you were admitted on an involuntary commitment, the police or other legal authorities may be involved in this process. AFTERCARE APPOINTMENTS: * Please call your insurance company prior to your scheduled appointment to confirm your aftercare providers are covered. Take your insurance information to your appointments. WHO TO CALL AND WHEN: Medical Emergencies: For questions or emergencies related to your hospital stay, please contact the Inpatient Behavioral Health Unit at [phone]. A wine bottle inspector is on-call 05/11 for the Behavioral Health Unit for emergencies At any time you feel your situation is an emergency, you may also call 911 immediately. Pending Studies at Discharge: No Stand-Alone Forms: My [email or web address], Smoking Cessation Medications and DC Order Prescriptions: New cephalexin 500 mg Capsule 500 mg PO HS Qty: 1 0RF Zostrix 0.033 % Cream 1 applic EXT BID PRN (Reason: pain) Qty: 56.6 0RF lidocaine 5 % Adhesive Patch,Medicated 1 patch transdermal QAM PRN (Reason: pain) Qty: 15 0RF Continued cyclobenzaprine 10 mg Tablet 10 mg PO AMHS rizatriptan [Maxalt] 10 mg Tablet 10 mg PO DIRECTED MDD 30 MG/24 HOURS PRN (Reason: Migraine Headache) Rx Instructions: TAKE ONE TABLET AT ONSET OF MIGRAINE HEADACHE, MAY REPEAT DOSE EVERY TWO HOURS IF NEEDED. MAXIMUM 3 TABLETS/24 HOURS gabapentin 800 mg Tablet 800 mg PO TID Rx Instructions: TOTAL DOSE 1100 MG--TAKE WITH ONE 300 MG TABLET levothyroxine 50 mcg Tablet 50 mcg PO DAILYBB Rx Instructions: TAKE THIS MEDICATION AT LEAST 30 MINUTES BEFORE BREAKFAST OR ANY OTHER MEDICATIONS pantoprazole [Protonix] 40 mg Tablet,Delayed Release (Dr/Ec) 40 mg PO QAM ferrous sulfate [Feosol] 325 mg (65 mg iron) Tablet 325 mg PO QAM docusate sodium [Colace] 100 mg Capsule 100 mg PO QAM epinephrine [EpiPen] 0.3 mg/0.3 mL Auto-Injector 0.3 mg IM DIRECTED PRN (Reason: Severe Allergic Reaction) fluticasone propionate [Flonase Allergy Relief] 50 mcg/actuation [place],Suspens ion 2 spray INTRANASAL DAILY PRN (Reason: Allergy Symptoms) fluticasone furoate-vilanterol [Breo Ellipta] 200-25 mcg/dose Blister With Device 1 inh INHALATION QAM Label Comments: pt has with her topiramate [Topamax] 200 mg Tablet 200 mg PO AMHS amitriptyline 25 mg Tablet 25 mg PO HS prazosin [Minipress] 2 mg capsule 4 mg PO HS cetirizine [Zyrtec] 10 mg Tablet 10 mg PO QAM hydroxyzine pamoate [Vistaril] 50 mg capsule 150 mg PO HS Botox 200 unit Recon Soln 155 unit IM .Q12 WEEKS Label Comments: next dose is in October Rx Instructions: DIVIDED OVER 31 SITES Probiotic and Acidophilus 300-250 million cell-mg Capsule 1 cap PO QAM magnesium oxide 400 mg magnesium Tablet 400 mg PO QAM lamotrigine [Lamictal] 200 mg tablet 200 mg PO QAM gabapentin [Neurontin] 300 mg capsule 300 mg PO TID Rx Instructions: TOTAL DOSE 1100 MG--TAKE WITH ONE 800 MG TABLET ondansetron 4 mg Tablet,Disintegrating 4 mg PO Q8H PRN (Reason: Nausea) cranberry 500 mg Capsule 500 mg PO QAM norethindrone-e.estradiol-iron [Junel FE 1.5/30 (28)] 1.5 mg-30 mcg (21)/75 mg (7) tablet 1 tab PO QAM cyanocobalamin (vitamin B-12) [Vitamin B-12] 1,000 mcg Tablet 1,000 mcg PO QAM lisinopril 5 mg tablet 5 mg PO QAM duloxetine 60 mg capsule,delayed release(DR/EC) 60 mg PO QAM dicyclomine 20 mg tablet 20 mg PO Q6 PRN (Reason: Muscle Spasm) famotidine 20 mg tablet 20 mg PO HS metformin 500 mg tablet extended release 24 hr 500 mg PO QDD Discharge Orders: Discharge Order (Routine); Ordered 11/01/21 Ordered By: Delia Barnett Admission Data Admit Date/Time: 10/27/21 20:05 Attending Provider: Delia Barnett Admit Provider: Maren Milian Primary Care Provider: Dennis Khan Other Interventions: PSY Interdisciplinary Discharge Planning Last Done: 10/31/21 15:23 Coding Level of Care Code 72278 D/C day mgmt > 30 min Diagnoses Bipolar 2 disorder, major depressive episode F31.81 MDD (major depressive disorder), recurrent episode, moderate F33.1 Depression with suicidal ideation F32.A; R45.851 Complicated bereavement F43.21 PTSD (post-traumatic stress disorder) F43.10 Anxiety F41.9
[2021-11-01] MEDS: CAPSAICIN CR 0.075% 60 GM TUBE EXT SCH (09:40)
--- NOTE | 2021-12-15 07:29 | Coding Query ---
CODING QUERY To promote full compliance with coding requirements relating to patient care, provider participation is requested in all cases of keno writer / runner uncertainty. Please assist us with the question(s) below: Coding Question(s): Please review and advise a definitive diagnosis if available. The ER report states" Blood work reassuring but urinalysis questionable for infection and the patient does endorse some burning with urination. We will treat with Keflex (5 days)." According to the medication tab, the patient did receive a 5 day dosage of Keflex over the course of their inpatient stay. Physician's Response(s): Hi yes we did treat for UTI so that can be added to list of diagnoses. Thanks Thank you Tiffanie Robledo Principal Diagnosis: "that condition established after study, to be chiefly responsible for occasioning the admission of the patient to the hospital for care." Co-Existing Principal Diagnosis: "when two or more diagnoses equally meet the criteria for principal diagnosis as determined by the circumstances of admission, diagnostic work up, and/or therapy provided, and the Alphabetic Index, Tabular List, or another coding guideline does not provide sequencing direction, any one of the diagnoses may be sequenced first." "When the physician has documented what appears to be a current diagnosis in the body of the record, but has not included the diagnosis in the final diagnostic statement, the physician should be asked whether the diagnosis should be added." (Source Coding [facility] 2 QTR90. p3-4) TWYLA
== END 2021-11-01 10:58 | disposition home or self-care (01) | DRG 885 ==
LOC: ED 15:32 → 3S 20:05 → SUATTDRO 20:05 → 3S 20:15

== ENCOUNTER 2022-02-22 17:00 | Inpatient (IN) ==
[2022-02-22 18:25] LABS: Hematocrit (blood only) 36.1 % (34.1-44.9); Hemoglobin 12.4 g/dl (12.0-16.0); Mean Corpuscular Hgb Conc 34.3 g/dL (32.0-36.0); Mean Corpuscular Volume 87.4 fL (80.0-100.0); Platelet Count 335 K/uL (130-400); RDW Coefficient of Variation 12.9 % (11.5-14.5); RDW Standard Deviation 40.3 fL (36.4-46.3); Red Blood Count 4.13 M/uL (3.93-5.22); White Blood Count 27.85 K/ul (4.8-10.8)
[2022-02-22 18:45] LABS: Basophils # (auto) 0.07 K/uL (0-0.2); Basophils % (auto) 0.3 %; Eosinophils # (auto) 0.01 K/uL (0-0.50); Immature Granulocytes # (auto) 0.88 K/uL (0.00-0.02); Immature Granulocytes % (auto) 3.2 %; Lymphocytes # (auto) 0.68 K/uL (1.2-3.4); Lymphocytes % (auto) 2.4 %; Monocytes # (auto) 1.35 K/uL (0.24-0.82); Monocytes % (auto) 4.8 %; Neutrophils # (auto) 24.86 K/uL (1.4-6.5); Neutrophils % (auto) 89.3 %
[2022-02-22] MEDS ORDERED: SODIUM CHLORIDE 0.9% 1000ML 1,000 ML IV ONE ×2 (19:04→20:54)
[2022-02-22 19:05] LABS: BUN Creatinine Ratio 14.9 (10-20); Bilirubin,Total 1.7 mg/dl (0.2-1.0); Creatinine Clr Calc Pharmacy 38.9 ml/min; Est GFR (African American) 34.4 ml/min; Est GFR (Non-African American) 29.7 ml/min; Globulin 3.9 gm/dl (2.5-4.0); Total Protein 7.9 gm/dl (6.0-8.3)
[2022-02-22] MEDS ORDERED: ONDANSETRON INJ 2 MG/ML 2 ML VIAL IV STA (19:26)
[2022-02-22] MEDS ORDERED: ACETAMINOPHEN 1,000 MG/100 ML VIAL IV STA (19:26)
[2022-02-22] MEDS ORDERED: fentaNYL citrate 100 MCG/2 ML VIAL IV STA (19:29)
[2022-02-22 19:52] LABS: Appearance Urine Turbid (Clear); Bacteria Urine Automated 3+ (Negative); Blood Urine 2+ (Negative); Color Urine Orange; Epithelial Cell Urine Auto >30 /lpf (0-5); Glucose Urine UA Negative (Negative); Ketones Urine Trace (Negative); Leukocyte Esterase Urine 2+ (Negative); Nitrite Urine Positive (Negative); Protein Urine 1+ (Negative); RBC Urine Automated 0-4 /hpf (0-4); Specific Gravity Urine 1.023 (1.000-1.030); Urobilinogen Urine Negative (Negative); WBC Urine Automated >30 /hpf (0-5); pH Urine 5.5 (4.5-7.5)
--- NOTE | 2022-02-22 20:06 | CT Scan Report ---
ABDOMEN AND PELVIS CT WITHOUT CONTRAST CT DOSE: 1257.34 mGy.cm HISTORY: rlq abd pain, leukocytosis, ARF TECHNIQUE: Multiaxial CT images of the abdomen and pelvis were performed without contrast. A dose lo wering technique was utilized adhering to the principles of ALARA. COMPARISON STUDY: Abdomen and pelvis CT 06/03/2021. FINDINGS: A few bibasilar linear densities consistent with subsegmental atelectasis. There is a trace right pleural effusion. No pneumoperitoneum. No pneumatosis. No fractures within the visualized osse ous structures. Small fat-containing umbilical and supraumbilical hernias remain unchanged. Hepatic s teatosis. Cholecystectomy. The unenhanced spleen and pancreas unremarkable. Stable bilateral adrenal gland nodules with the largest on the right measuring 1.7 cm. These are consistent with benign adenom as. Normal caliber abdominal aorta. No retroperitoneal lymphadenopathy. The there is a punctate stone within the lower pole the left kidney. Stable cortical calcification within the left kidney. No righ t renal calculi. There is right perinephric edema. There is moderate right hydroureteronephrosis seco ndary to an obstructing stone within the distal right ureter on image 402. This measures 7 mm. This i s 5 cm from the right ureterovesical junction. The bladder is unremarkable. The uterus and bilateral adnexa are within normal limits. Suboptimal evaluation for bowel pathology due to the lack of intrave nous and oral contrast. However, there is no definite bowel wall thickening or obstruction. Normal ap pendix. No left-sided hydronephrosis. IMPRESSION: 1. A 7 mm obstructing stone within the distal right ureter resulting in moderate right hydroureterone phrosis. 2. Left-sided nephrolithiasis. 3. No bowel wall thickening or obstruction. 4. Normal appendix. 5. Additional findings as described above. ACT 112: Negative or not required by law. Electronically signed by: Adair Bennett M.D. 02/22/2022 8:04 PM
[2022-02-22 20:10] LABS: Bilirubin Urine 1+ (Negative)
[2022-02-22 20:14] LABS: Cast Urine Automated 0 /lpf (0-5)
[2022-02-22] MEDS ORDERED: cefTRIAXone SODIUM 2,000 MG/70 ML BAG IV STA (20:54)
[2022-02-22] MEDS ORDERED: PIPERACILLIN/TAZOBACTAM 4.5 GM/120 ML BAG IV STA (21:13)
--- NOTE | 2022-02-22 21:22 | Urology Consultation ---
Date of Consultation February 22, 2022 Assessment & Plan (1) Nephrolithiasis: I discussed case with treating emergency room physician. He is having the hospitalist admit the patient to the hospital. From a urologic perspective we recommend proceeding as follows: Feel that the patient has underlying sepsis from the urinary source complicated by obstructing kidney stone. We will therefore take the patient to the operating room this evening for cystoscopy and potential right ureteral stent placement We will hydrate her aggressively with intravenous fluids. She has received 1 L of normal saline with an additional 1 L ordered by the emergency room physician. We will then run her fluids at 125 cc/h We will initiate antibiotics in the form of Zosyn. The first dose has been administered in the emergency department Blood and urine cultures have been sent. We will follow for the results of th jessie at which time antibiotics can be tailored based on these results We will keep the patient n.p.o. until after her urologic procedure is completed Additional recommendations be forthcoming based on operative findings and her recovery thereafter ATTENDING NOTE: Independently evaluated, assessed, interviewed, and examined. Agreed with above. Patient is septic with hypotension tachycardia acute ill feelings and obstructing stone. Patient has hydronephrosis. Has had acute illness from stones in the past. Had previously been seen by myself and underwent intervention. Patient is undergoing broad-spectrum antibiotics had been escalated to Zosyn in order to have better coverage of Pseudomonas and other gram-negative bacteria. Patient is undergoing volume resuscitation. Has improved with 1 L of fluids. Has another liter running. Is also undergoing volume resuscitation. Has cultures and blood cultures pending. Patient is currently n.p.o. the did have a few sips of water earlier in the day. Risks and benefits discussed at length for procedure. These include bleeding, infection, injury to surrounding tissues or organs, and risks associated with anesthesia. Patient states understanding and agrees to proceed. Will sign consent and proceed with Cystoscopy and right stent. History of Present Illness Reason for Consultation: Nephrolithiasis History of Present Illness This is a 38-year-old female who presented [facility] emergency department secondary to approximately 3 days of right-sided back/flank pain. She notes that the pain radiates to her abdomen. She does not note any modifying factors to her pain. She denies any fevers but she has had chills along with shakes. She has also been drenched with sweat for most of today. No nausea or vomiting has been reported. Patient does have a history of kidney stones. She notes that her most recent urologic procedure she believes was approximately 3 years ago. She notes with her kidney stone she is rarely able to pass them on her own she usually requires procedural intervention. In addition to the symptoms listed above the patient has had some hematuria as well as dysuria. Her most recent oral intake was some water which she consumed at a pproximately 4:30 PM today. She has not had any solid food since 02/21/2022. In the emergency department patient had labs and imaging which MODEL AND PATTERN SUPERVISOR note reviewed. She did have a CT scan of the abdomen pelvis that showed that she had a 7 mm obstructing kidney stone in the distal right ureter salting and right-sided hydronephrosis. Labs include a CBC her white blood cell count was elevated at 27.8. Hemoglobin, hematocrit, and platelet count were all within normal range. Chemistry profile showed sodium was 133. Her potassium was within normal range. BUN and creatinine were 29 and 1.9. This level of creatinine does represent an acute kidney injury as her baseline creatinine is usually normal. A COVID test was performed and was noted to be negative. Urinalysis showed turbid urine which was positive for nitrites. She was also noted to have 2+ leukocyte Estrace as well as pyuria with greater than 30 white blood cells per high-power field. This urine specimen also showed 3+ bacteria. Since arrival to the emergency department the patient has received 1 L of normal saline solution. Antibiotics in the form of Zosyn have been ordered and are currently being hung by the nursing staff. The patient has been noted to have periods of hypotension in the emergency department with blood pressures in the 90 systolic range. She is also noted to be tachycardic with a heart rate anywhere from 1 10-1 30. Respirations are 20 nonlabored and the patient has been afebrile. Her pulse ox is 95% on room air At the time of my interview she did appear somewhat uncomfortable was in no distress. Allergies Allergy/AdvReac Type Severity Reaction Status Date / Time bee venom protein (honey bee) Allergy Severe ANAPHYLAXIS Verified 06/03/21 20:52 morphine AdvReac Intermediate HALLUCINATI Verified 06/03/21 20:52 ONS Home Medications Medication Instructions Recorded Confirmed Type cyclobenzaprine 10 mg tablet 10 mg PO [facility] 01/10/18 10/27/21 History docusate sodium 100 mg capsule 100 mg PO QAM 01/10/18 10/27/21 History (Colace) epinephrine 0.3 mg/0.3 mL 0.3 mg IM DIRECTED PRN Severe 01/10/18 10/27/21 History injection, auto-injector (EpiPen) Allergic Reaction ferrous sulfate 325 mg (65 mg 325 mg PO QAM 01/10/18 10/27/21 History iron) tablet (Feosol) fluticasone furoate 200 1 inh inhalation QAM 01/10/18 10/27/21 History mcg-vilanterol 25 mcg/dose inhalation powder (Breo Ellipta) fluticasone propionate 50 2 spray intranasal DAILY PRN 01/10/18 10/27/21 History mcg/actuation nasal Allergy Symptoms spray,suspension (Flonase Allergy Relief) gabapentin 800 mg tablet 800 mg PO TID 01/10/18 10/27/21 History levothyroxine 50 mcg tablet 50 mcg PO DAILYBB 01/10/18 10/27/21 History pantoprazole 40 mg tablet,delayed 40 mg PO QAM 01/10/18 10/27/21 History release (Protonix) rizatriptan 10 mg tablet (Maxalt) 10 mg PO DIRECTED PRN Migraine 01/10/18 10/27/21 History Headache topiramate 200 mg tablet (Topamax) 200 mg PO AM[facility] 05/25/18 10/27/21 History amitriptyline 25 mg tablet 25 mg PO HS 06/19/18 10/27/21 History prazosin 2 mg capsule (Minipress) 4 mg PO HS 06/19/18 10/27/21 History cetirizine 10 mg tablet (Zyrtec) 10 mg PO QAM 09/20/18 10/27/21 History Lactobacillus comb 1 cap PO QAM 10/14/18 10/27/21 History no.[id number] 300 million cell-250 mg capsule (Probiotic and Acidophilus) hydroxyzine pamoate 50 mg capsule 150 mg PO HS 10/14/18 10/27/21 History (Vistaril) onabotulinumtoxinA 200 unit 155 unit IM .Q12 WEEKS 10/14/18 10/27/21 History solution for injection (Botox) magnesium oxide 400 mg PO QAM 04/07/19 10/27/21 History gabapentin 300 mg capsule 300 mg PO TID 08/08/19 10/27/21 History (Neurontin) lamotrigine 200 mg tablet 200 mg PO QAM 08/08/19 10/27/21 History (Lamictal) ondansetron 4 mg disintegrating 4 mg PO Q8H PRN Nausea 08/08/19 10/27/21 History tablet cranberry 500 mg capsule 500 mg PO QAM 02/14/20 10/27/21 History cyanocobalamin (vitamin B-12) 1,000 mcg PO QAM 02/14/20 10/27/21 History 1,000 mcg tablet (Vitamin B-12) norethindrone 1.5 mg-ethinyl 1 tab PO QAM 02/14/20 10/27/21 History estradiol 30 mcg(21)/iron 75 mg(7) tablet (Junel FE 1.5/30 (28)) lisinopril 5 mg tablet 5 mg PO QAM 09/15/20 10/27/21 History duloxetine 60 mg capsule,delayed 60 mg PO QAM 03/04/21 10/27/21 History release dicyclomine 20 mg tablet 20 mg PO Q6 PRN Muscle Spasm 10/28/21 10/28/21 History famotidine 20 mg tablet 20 mg PO HS 10/28/21 10/28/21 History metformin 500 mg tablet,extended 500 mg PO QDD 10/28/21 10/28/21 History release 24 hr capsaicin 0.033 % topical cream 1 applic EXT BID PRN pain #56.6 11/01/21 Rx (Zostrix) grams cephalexin 500 mg capsule 500 mg PO HS #1 cap 11/01/21 Rx lidocaine 5 % topical patch 1 patch transdermal QAM PRN pain 11/01/21 Rx #15 ea Patient History Medical History Acute UTI Anemia Anxiety Asthma USES PRN INH APPROX 1-2 X MONTHLY; DENIES RECENT EXAC Bipolar 1 disorder Chest pain, atypical Closed head injury R/T FALL IN 2017; REPORTS CONCUSSION Depression with suicidal ideation E. coli septicemia Fibroadenoma of breast RT Fibromyalgia GERD (gastroesophageal reflux disease) Hx of prolonged Q-T interval on ECG PER PT'S MEDICAL RECORD FROM PCP OFFICE. Hypothyroidism Irregular menses Kidney stone Migraine Obesity PCO (polycystic ovaries) Peripheral neuropathy Poor historian PTSD (post-traumatic stress disorder) Pyelonephritis Recurrent UTI Sleep apnea NO CPAP Surgical History H/O lithotripsy History of ankle surgery RT History of breast biopsy RT History of cystoscopy Hx of cholecystectomy Hx of colonoscopy Hx of knee surgery RT Status post labral repair of shoulder RT Family History Father Heart disease Other No significant family history Social History Smoking Status: Never smoker Second Hand Exposure: No; Hx Alcohol Use: No Hx Substance Use: No Preferred Language: Vietnamese Communication Ability: Effective Director Of Land Acquisition Required: No Beliefs That Will Affect Care: Adventist Adventist Beliefs: does not affect treatment and Spiritual Spiritual Healthcare Practices: does not affect treatment marital status: Single Current Living Situation: Family Current Living Situation Comment: At home with mother current occupational status: disabled Feels Safe at Home: Yes Assistive Devices: Glasses Review of Systems Constitutional: + chills and + sweats; no fever Eyes: + corrective lenses Ear, Nose, Mouth, Throat: no ear pain Respiratory: no cough and no dyspnea Cardiovascular: no chest pain Gastrointestinal: + abdominal pain (Radiating from right flank); no nausea and no vomiting Genitourinary: as per Subjective / HPI, + dysuria, + hematuria and + flank pain (Right sided) Musculoskeletal: + back pain (Right-sided flank pain) Integumentary: no rash Neurologic: no localized weakness Physical Exam Constitutional: well developed and well nourished; no acute distress Eyes: Wears glasses ENMT: Ears: no hearing impairment and no external ear abnormality Mouth: no oropharynx abnormality Neck: trachea midline Respiratory: normal respiratory effort, lungs clear to auscultation Cardiovascular: Rate/Rhythm: regular rate, regular rhythm and + tachycardic Vessels: dorsalis pedis pulses present and radial pulses present Gastrointestinal (Abdomen): Abdomen is soft, nonrigid, nondistended. Patient did exhibit pain with palpation in the right hypogastric region. Musculoskeletal: No calf tenderness Skin: no rashes Neurologic: moves all extremities Psychiatric: A+Ox3, euthymic affect Results & Data ([facility]) Vital Signs (Past 12 Hours) Vital Signs Temp Pulse Resp BP BP Pulse Ox O2 Del Method 02/22/22 19:18 92/60 L 02/22/22 19:10 124 H 20 92/57 L 95 02/22/22 17:19 36.2 C L 122 H 20 102/62 96 Room Air PG Care Time/CCT Total # of Minutes Spent Total Time Spent with Patient: Total time spent is greater than 50% in coordination of care (as documented) at patient's floor/unit and/or counseling patient: Coding Level of Care Code 71945 Inpt Consult Level 5 Diagnoses Nephrolithiasis N20.0
--- NOTE | 2022-02-22 22:02 | Anesthesiology Consultation ---
Date of Service February 22, 2022 Assessment & Plan Chart Review Chart Review: Acceptable Risk for Surgery and Patient NOT seen in Pre Admission Testing Consults Requested none ASA [id number] Proposed Anesthesia Anesthesia Type: MAC Risk / Benefits Reviewed With: PT / POA / Parent / Guardian, Accepts Plan and Informed Consent Obtained History Surgery Operation Date: 02/22/22 21:45 Proposed Procedures p Ureteral Stent(Right) - Hardeep Hayes, DO Height/Weight Height: 5 ft 3 in Weight: 95.9 kg Allergies Allergy/AdvReac Type Severity Reaction Status Date / Time bee venom protein (honey bee) Allergy Severe ANAPHYLAXIS Verified 06/03/21 20:52 morphine AdvReac Intermediate HALLUCINATI Verified 06/03/21 20:52 ONS Medications Home Medications Medication Instructions Recorded Confirmed Last Taken cyclobenzaprine 10 mg tablet 10 mg PO AMHS 01/10/18 10/27/21 06/03/21 08:00 docusate sodium 100 mg capsule 100 mg PO QAM 01/10/18 10/27/21 06/03/21 (Colace) epinephrine 0.3 mg/0.3 mL 0.3 mg IM DIRECTED PRN Severe 01/10/18 10/27/21 01/21/18 injection, auto-injector (EpiPen) Allergic Reaction ferrous sulfate 325 mg (65 mg 325 mg PO QAM 01/10/18 10/27/21 06/03/21 iron) tablet (Feosol) fluticasone furoate 200 1 inh inhalation QAM 01/10/18 10/27/21 06/03/21 mcg-vilanterol 25 mcg/dose inhalation powder (Breo Ellipta) fluticasone propionate 50 2 spray intranasal DAILY PRN 01/10/18 10/27/21 04/17/18 mcg/actuation nasal Allergy Symptoms spray,suspension (Flonase Allergy Relief) gabapentin 800 mg tablet 800 mg PO TID 01/10/18 10/27/21 06/03/21 14:00 levothyroxine 50 mcg tablet 50 mcg PO DAILYBB 01/10/18 10/27/21 06/03/21 pantoprazole 40 mg tablet,delayed 40 mg PO QAM 01/10/18 10/27/21 06/03/21 release (Protonix) rizatriptan 10 mg tablet (Maxalt) 10 mg PO DIRECTED PRN Migraine 01/10/18 10/27/21 09/29/20 Headache topiramate 200 mg tablet (Topamax) 200 mg PO [facility] 05/25/18 10/27/21 06/03/21 08:00 amitriptyline 25 mg tablet 25 mg PO HS 06/19/18 10/27/21 06/02/21 prazosin 2 mg capsule (Minipress) 4 mg PO HS 06/19/18 10/27/21 06/02/21 cetirizine 10 mg tablet (Zyrtec) 10 mg PO QAM 09/20/18 10/27/21 06/03/21 Lactobacillus comb 1 cap PO QAM 10/14/18 10/27/21 06/03/21 no.5-QJP-[id number] 300 million cell-250 mg capsule (Probiotic and Acidophilus) hydroxyzine pamoate 50 mg capsule 150 mg PO HS 10/14/18 10/27/21 06/02/21 (Vistaril) onabotulinumtoxinA 200 unit 155 unit IM .Q12 WEEKS 10/14/18 10/27/21 05/25/21 solution for injection (Botox) magnesium oxide 400 mg PO QAM 04/07/19 10/27/21 06/03/21 gabapentin 300 mg capsule 300 mg PO TID 08/08/19 10/27/21 06/03/21 14:00 (Neurontin) lamotrigine 200 mg tablet 200 mg PO QAM 08/08/19 10/27/21 06/03/21 (Lamictal) ondansetron 4 mg disintegrating 4 mg PO Q8H PRN Nausea 08/08/19 10/27/21 02/25/21 tablet cranberry 500 mg capsule 500 mg PO QAM 02/14/20 10/27/21 06/03/21 cyanocobalamin (vitamin B-12) 1,000 mcg PO QAM 02/14/20 10/27/21 06/03/21 1,000 mcg tablet (Vitamin B-12) norethindrone 1.5 mg-ethinyl 1 tab PO QAM 02/14/20 10/27/21 06/03/21 estradiol 30 mcg(21)/iron 75 mg(7) tablet (Junel FE 1.5/30 (28)) lisinopril 5 mg tablet 5 mg PO QAM 09/15/20 10/27/21 06/03/21 duloxetine 60 mg capsule,delayed 60 mg PO QAM 03/04/21 10/27/21 06/03/21 release dicyclomine 20 mg tablet 20 mg PO Q6 PRN Muscle Spasm 10/28/21 10/28/21 Unknown famotidine 20 mg tablet 20 mg PO HS 10/28/21 10/28/21 Unknown metformin 500 mg tablet,extended 500 mg PO QDD 10/28/21 10/28/21 Unknown release 24 hr capsaicin 0.033 % topical cream 1 applic EXT BID PRN pain #56.6 11/01/21 Unknown (Zostrix) grams cephalexin 500 mg capsule 500 mg PO HS #1 cap 11/01/21 Unknown lidocaine 5 % topical patch 1 patch transdermal QAM PRN pain 11/01/21 Unknown #15 ea Past Medical History Medical History Acute UTI Anemia Anxiety Asthma USES PRN INH APPROX 1-2 X MONTHLY; DENIES RECENT EXAC Bipolar 1 disorder Chest pain, atypical Closed head injury R/T FALL IN 2017; REPORTS CONCUSSION Depression with suicidal ideation E. coli septicemia Fibroadenoma of breast RT Fibromyalgia GERD (gastroesophageal reflux disease) Hx of prolonged Q-T interval on ECG PER PT'S MEDICAL RECORD FROM PCP OFFICE. Hypothyroidism Irregular menses Kidney stone Migraine Obesity PCO (polycystic ovaries) Peripheral neuropathy Poor historian PTSD (post-traumatic stress disorder) Pyelonephritis Recurrent UTI Sleep apnea NO CPAP Exercise / Class Metabolic Activity II 4-5 Yardwork/Stairs/Walk up hill Past Family History Family History Father Heart disease Other No significant family history Past Surgical History Surgical History H/O lithotripsy History of ankle surgery RT History of breast biopsy RT History of cystoscopy Hx of cholecystectomy Hx of colonoscopy Hx of knee surgery RT Status post labral repair of shoulder RT Past Anesthesia History No Hx of Anesthesia Complications and No Family Hx of Anesthesia Complications History of PONV No Hx of PONV and No Hx of Motion Sickness Social History Smoking Status: Never smoker Hx Alcohol Use: No Hx Substance Use: No Physical Exam Vital Signs Last Vital Signs Temp 36.2 C L 02/22/22 17:19 Pulse 88 02/22/22 21:44 Resp 20 02/22/22 21:44 BP 104/68 02/22/22 21:44 Pulse Ox 98 02/22/22 21:44 O2 Del Method 02/22/22 21:44 Constitutional + obese ENMT Mouth: no dentition abnormality Thyromental Distance: > or= 3.5 Finger Breadths Mallampati Class: II Neck normal visual inspection Respiratory normal respiratory effort Auscultation: lungs clear to auscultation bilaterally Cardiovascular Rate/Rhythm: regular rate and regular rhythm Psychiatric Orientation: alert Testing Laboratory Results 02/22/22 18:07 02/22/22 18:07 Urine Color [place] 02/22/22 19:06 Urine Appearance Turbid (Clear) A 02/22/22 19:06 Urine pH 5.5 (4.5-7.5) 02/22/22 19:06 Ur Specific [place] 1.023 (1.000-1.030) 02/22/22 19:06 Urine Protein 1+ (Negative) H 02/22/22 19:06 Urine Glucose (UA) Negative (Negative) 02/22/22 19:06 Urine Ketones Trace (Negative) H 02/22/22 19:06 Urine Nitrite Positive (Negative) A 02/22/22 19:06 Ur Leukocyte Esterase 2+ (Negative) H 02/22/22 19:06 Urine WBC (Auto) >30 /hpf (0-5) H 02/22/22 19:06 Urine RBC (Auto) 0-4 /hpf (0-4) 02/22/22 19:06 U Hyaline Cast (Auto) 0 /lpf (0-5) 02/22/22 19:06 U Epithel Cells (Auto) >30 /lpf (0-5) H 02/22/22 19:06 Urine Bacteria (Auto) 3+ (Negative) H 02/22/22 19:06 Electrocardiogram Date: 02/22/22 Findings: + NSR @ Chest X-Ray Date: 02/22/22 Findings: + NAD
[2022-02-22] MEDS ORDERED: ePHEDrine sulfate 50 MG/ML AMP IV PRN (22:07)
[2022-02-22] MEDS ORDERED: ONDANSETRON INJ 2 MG/ML 2 ML VIAL IV PRN (22:07)
[2022-02-22] MEDS ORDERED: ATROPINE SULFATE 0.1 MG/ML 10ML SYR IV PRN (22:07)
[2022-02-22] MEDS ORDERED: fentaNYL citrate 100 MCG/2 ML VIAL IV PRN (22:07)
[2022-02-22] MEDS ORDERED: fentaNYL citrate 100 MCG/2 ML VIAL ONE (22:20)
[2022-02-22] MEDS ORDERED: MIDAZOLAM HCL 1 MG/ML 2ML VIAL ONE (22:20)
[2022-02-22] MEDS ORDERED: LIDOCAINE 2% MPF LOCAL 5 ML VIAL INFIL ONE (22:38)
[2022-02-22] MEDS ORDERED: PROPOFOL IV EMULSION 10 MG/ML 20 ML VIAL IV ONE (22:38)
--- NOTE | 2022-02-22 22:51 | Operative Report ---
PG Post Operative Report Pre & Post Diagnosis Operation Date: 02/22/22 21:45 Pre-Op Diagnosis: Nephrolithiasis Post-Op Diagnosis: Nephrolithiasis I identified the patient and participated in the time-out.: Yes Procedure Operation Date: 02/22/22 21:45 Actual Procedures p Cytsoscopy with Right retrograde pyelogram and right ureteral stent placement(Right) - Hardeep Hayes DO Surgeon Hardeep Hayes, II, DO Nail Kegger None Estimated Blood Loss 1 Findings Consistent with Post-Op Diagnosis Stent placed in good position. Severely obstructed stone in mid/distal ureter. Specimens None Drains 6 Fr Multilength 18 Fr [place] Anesthesia Type MAC Complications none Disposition Disposition: Recovery Room Indications Patient with obstruction. Risks and benefits discussed at length. Description of Procedure Patient was consented and brought back to the operating room. Patient was placed under anesthesia in the supine position and moved to the dorsal lithotomy position. Patient was prepped and draped in the regular sterile fashion. A time out was completed. A 30degree Cystoscope was placed into the bladder and the entire bladder was examined. The UO's were identified. The UO was cannulized with a catheter and the wire was advanced. The stone caused considerable obstruction and significant manipulation was necessary to advance the wire. Over the wire the catheter was advanced to the pelvis and urine was aspirated. This was sent for culture and a retrograde pyelogram was completed. The wire was then replaced. With the wire in place, a 6 Fr Double J stent was placed. It was confirmed with fluoroscopy. With the stent in place, the bladder was emptied. The scope was removed. The patient was cleaned, aroused from anesthesia, and transferred to the pacu in stable condition having tolerated the procedure well with no complications. I was present and participated in all aspects of the procedure. The patient will be monitored in the PACU until transferred. Patient admitted for critical management of sepsis with hospitalist team. Will plan to monitor with likely 1-2 weeks of antibiotics prior to planning to treat stone. I attest to the content of the Intraoperative Record and any orders documented therein. Any exceptions are noted below.
[2022-02-22] MEDS ORDERED: DIATRIZOATE MEGLUMINE 30% 100ML VIAL INSTIL ONE (22:56)
--- NOTE | 2022-02-22 23:09 | Anesthesiology Progress Note ---
Date of Service February 22, 2022 Anesthesia Post Procedure Vital Signs Vital Signs: Temp Pulse Pulse Resp BP BP Pulse Ox 02/22/22 23:00 109 H 21 97 02/22/22 23:00 82/38 L 02/22/22 22:55 36.5 C 117 H 16 96 02/22/22 22:55 95/39 L 02/22/22 21:44 88 20 104/68 98 02/22/22 19:18 92/60 L 02/22/22 19:10 124 H 20 92/57 L 95 02/22/22 17:19 36.2 C L 122 H 20 102/62 96 O2 Del Method O2 Flow Rate 02/22/22 23:00 02/22/22 23:00 02/22/22 22:55 Oxymask 6 02/22/22 22:55 02/22/22 21:44 Room Air 02/22/22 19:18 02/22/22 19:10 02/22/22 17:19 Room Air Pain Intensity Left Abdomen: Pain Intensity: 3 Transfer of Care Handoff Completed per policy Notes Mental Status: alert / awake / arousable Patient Amnestic to Procedure: Yes Nausea / Vomiting: adequately controlled Pain: adequately controlled Airway Patency, RR, SpO2: stable & adequate BP & HR: stable & adequate Hydration State: stable & adequate Anesthetic Complications: no major complications apparent
--- NOTE | 2022-02-22 23:16 | Anesthesiology Progress Note ---
Date of Service February 22, 2022 Anesthesia Post Procedure Vital Signs Vital Signs: Temp Pulse Pulse Resp BP BP Pulse Ox 02/22/22 23:10 113 H 19 96 02/22/22 23:10 86/64 L 02/22/22 23:05 94/43 L 02/22/22 23:05 108 H 20 97 02/22/22 23:00 109 H 21 97 02/22/22 23:00 82/38 L 02/22/22 22:55 36.5 C 117 H 16 96 02/22/22 22:55 95/39 L 02/22/22 21:44 88 20 104/68 98 02/22/22 19:18 92/60 L 02/22/22 19:10 124 H 20 92/57 L 95 02/22/22 17:19 36.2 C L 122 H 20 102/62 96 O2 Del Method O2 Flow Rate 02/22/22 23:10 02/22/22 23:10 02/22/22 23:05 02/22/22 23:05 Room Air 02/22/22 23:00 02/22/22 23:00 02/22/22 22:55 Oxymask 6 02/22/22 22:55 02/22/22 21:44 Room Air 02/22/22 19:18 02/22/22 19:10 02/22/22 17:19 Room Air Pain Intensity Left Abdomen: Pain Intensity: 3 Transfer of Care Handoff Completed per policy Notes Mental Status: alert / awake / arousable Patient Amnestic to Procedure: Yes Nausea / Vomiting: adequately controlled Pain: adequately controlled Airway Patency, RR, SpO2: stable & adequate BP & HR: stable & adequate Hydration State: stable & adequate Anesthetic Complications: no major complications apparent
--- NOTE | 2022-02-22 23:20 | Emergency Department Note ---
Impression & Plan Sepsis, Right ureteral calculus, Hydronephrosis due to obstruction of ureter, UTI (urinary tract infection) ED Provider Note NAME: DONALD RAMIREZ AGE: 46 SEX: F ARRIVES VIA: Ambulance INFORMANT: Patient ED PROVIDER(S): Miller Raymond MD CHIEF COMPLAINT: RLQ abd pain PLAN: Disposition: Admit MEDICAL DECISION MAKING: The patient is a pleasant 46-year-old woman with a past medical history of bipolar disorder, nephrolithiasis, hypothyroidism, GERD, migraines, fibromyalgia, PCOS who presents to the emergency department via EMS for evaluation of right lower quadrant pain with associated nausea and feverishness though no objective fevers over the past several days where she was hoping the symptoms would go away but they have continued to worsen. She reports having some blood in her urine. She denies any cough, congestion, chest pain or s hortness of breath. On arrival the patient is uncomfortable but no acute distress, afebrile with h eart rate in the 120s and vital signs otherwise stable. She appears clinically dry. She has moderate right lower quadrant tenderness without guarding or rebound. WBC 27.8K with neutrophil predominance and left shift. H/H and platelets within normal limits. Chemistry with bicarbonate of 19 but normal anion gap. Creatinine is acutely elevated at 1.95 consistent with acute kidney injury. Lactic acid 1.4. Total bili 1.7 with direct bilirubin 0.7, nonspecific with alk phos and AST and ALT within normal limits. UA is concerning for infection with nitrites, WBCs and 3+ bacteria albeit with epithelial cells present. COVID-19 RNA, ELIZABETH test was negative. CT of the abdomen pelvis was performed and demonstrates 7 mm obstructing distal ureteral stone with associated moderate hydroureteroneph rosis. Findings are concerning for sepsis secondary to infected obstructing ureteral stone. Blood cultures were drawn and patient was treated with ceftriaxone which should be effective given patient's history of urine cultures. Patient was given IV fluid ration as well however 30 cc/kg was deferred as the patient was fluid responsive and occurs in the setting of her acute renal failure. Case was treated with was discussed with urology on-call PING Smith with Dr. Freddy VILLARREAL urology on-call. They will take the patient to the OR for stent placement. Case was discussed with Dr. Villarreal, [facility], who will evaluate the patient for admission. Triage Nursing notes reviewed and agree them. Prior medical records reviewed Vital Signs: reviewed and remarkable for no significant abnormalities Differential diagnosis: Renal colic, UTI, appendicitis, diverticulitis, mesenteric ischemia, aortic pathology, infections, inflammatory bowel disease, PUD, biliary pathology, as well as other pathologies. ER treatment provided: See below. Diagnostics interpreted by me: Cardiac Monitoring: An order for continuous cardiac monitoring was placed and demonstrated sinus tachycardia, 122 bpm, no ectopy. Laboratory studies: See below Imaging studies: See below Consultation(s): Dr. Villarreal, [facility] hospitalist. Mike Shah, PAC with Dr. Freddy VILLARREAL urology on-call. HPI: The patient is a pleasant 46-year-old woman with a past medical history of bipolar disorder, nephrolithiasis, hypothyroidism, GERD, migraines, fibromyalgia , PCOS who presents to the emergency department via EMS for evaluation of right lower quadrant pain with associated nausea and feverishness though no objective fevers over the past several days where she was hoping the symptoms would go away but they have continued to worsen. She reports having some blood in her urine. She denies any cough, congestion, chest pain or shortness of breath. ROS: See above HPI for pertinent positives & negatives. A total of 10 systems reviewed and were otherwise negative. VITALS:See Below PHYSICAL EXAMINATION: GENERAL: Awake, alert, uncomfortable-appearing, in no distress HENT: Normocephalic, atraumatic. Oropharynx with dry mucous membranes and otherwise unremarkable. EYES: Normal conjunctiva. Sclera non-icteric. NECK: Supple. No nuchal rigidity. FROM. No JVD. RESPIRATORY: Clear to auscultation. CARDIAC: Tachycardic rate, normal rhythm. Extremities warm and well perfused. Pulses equal. ABDOMEN: Soft, non-distended. Moderate RLQ tenderness to palpation. No rebound or guarding. No masses. RECTAL: Deferred. MUSCULOSKELETAL: Chest examination reveals no tenderness. The back is symmetrical on inspection without obvious abnormality. There is no CVA tenderness to palpation. No joint edema. LOWER EXTREMITIES: Calves are equal size bilaterally and non-tender. No edema. No discoloration. NEURO: Normal sensorium. No sensory or motor deficits noted. SKIN: No rash or jaundice noted. ED COURSE: Critical Care: I have personally spent greater than 75 minutes of critical care time in the direct management of this patient. This includes bedside care, interpretation of diagnostic studies, and testing, discussion with consultants, patient, and family members, and other required patient management activities. This 75 minutes is in excess of all separately billable procedures. Miller Raymond MD Past Med/Surg History Medical History Acute UTI Anemia Anxiety Asthma USES PRN INH APPROX 1-2 X MONTHLY; DENIES RECENT EXAC Bipolar 1 disorder Chest pain, atypical Closed head injury R/T FALL IN 2017; REPORTS CONCUSSION Depression with suicidal ideation E. coli septicemia Fibroadenoma of breast RT Fibromyalgia GERD (gastroesophageal reflux disease) Hx of prolonged Q-T interval on ECG PER PT'S MEDICAL RECORD FROM PCP OFFICE. Hypothyroidism Irregular menses Kidney stone Migraine Obesity PCO (polycystic ovaries) Peripheral neuropathy Poor historian PTSD (post-traumatic stress disorder) Pyelonephritis Recurrent UTI Sleep apnea NO CPAP Surgical History H/O lithotripsy History of ankle surgery RT History of breast biopsy RT History of cystoscopy Hx of cholecystectomy Hx of colonoscopy Hx of knee surgery RT Status post labral repair of shoulder RT Family History Father Heart disease Other No significant family history Social History Smoking Status: Never smoker Second Hand Exposure: No; Hx Alcohol Use: No Hx Substance Use: No Preferred Language: Afghan Communication Ability: Effective 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 disabled. no drivers license current occupational status: disabled Other Information That Helps Us Care for You: No Feels Safe at Home: Yes Safety Concerns: Feels Safe At This Time Assistive Devices: None Allergies Allergies Allergy/AdvReac Type Severity Reaction Status Date / Time bee venom protein (honey bee) Allergy Severe ANAPHYLAXIS Verified 02/22/22 22:14 morphine AdvReac Intermediate HALLUCINATI Verified 02/22/22 22:14 ONS Home Meds Home Medications Medication Instructions Recorded Confirmed cyclobenzaprine 10 mg tablet 10 mg PO AMHS 01/10/18 02/22/22 docusate sodium 100 mg capsule 100 mg PO QAM 01/10/18 02/22/22 (Colace) epinephrine 0.3 mg/0.3 mL 0.3 mg IM DIRECTED PRN Severe 01/10/18 02/22/22 injection, auto-injector (EpiPen) Allergic Reaction ferrous sulfate 325 mg (65 mg 325 mg PO QAM 01/10/18 02/22/22 iron) tablet (Feosol) fluticasone furoate 200 1 inh inhalation QAM 01/10/18 02/22/22 mcg-vilanterol 25 mcg/dose inhalation powder (Breo Ellipta) fluticasone propionate 50 2 spray intranasal DAILY PRN 01/10/18 02/22/22 mcg/actuation nasal Allergy Symptoms spray,suspension (Flonase Allergy Relief) gabapentin 800 mg tablet 800 mg PO TID 01/10/18 02/22/22 levothyroxine 50 mcg tablet 50 mcg PO DAILYBB 01/10/18 02/22/22 pantoprazole 40 mg tablet,delayed 40 mg PO QAM 01/10/18 02/22/22 release (Protonix) rizatriptan 10 mg tablet (Maxalt) 10 mg PO DIRECTED PRN Migraine 01/10/18 02/22/22 Headache topiramate 200 mg tablet (Topamax) 200 mg PO AMHS 05/25/18 02/22/22 prazosin 2 mg capsule (Minipress) 4 mg PO HS 06/19/18 02/22/22 cetirizine 10 mg tablet (Zyrtec) 10 mg PO QAM 09/20/18 02/22/22 Lactobacillus comb 1 cap PO QAM 10/14/18 02/22/22 no.9-NOO-pbestitlhn 300 million cell-250 mg capsule (Probiotic and Acidophilus) hydroxyzine pamoate 50 mg capsule 150 mg PO HS 10/14/18 02/22/22 (Vistaril) onabotulinumtoxinA 200 unit 0 unit IM .Q12 WEEKS 10/14/18 02/22/22 solution for injection (Botox) magnesium oxide 400 mg PO QAM 04/07/19 02/22/22 gabapentin 300 mg capsule 300 mg PO TID 08/08/19 02/22/22 (Neurontin) lamotrigine 200 mg tablet 200 mg PO QAM 08/08/19 02/22/22 (Lamictal) ondansetron 4 mg disintegrating 4 mg PO Q8H PRN Nausea 08/08/19 02/22/22 tablet cranberry 500 mg capsule 500 mg PO QAM 02/14/20 02/22/22 cyanocobalamin (vitamin B-12) 1,000 mcg PO QAM 02/14/20 02/22/22 1,000 mcg tablet (Vitamin B-12) norethindrone 1.5 mg-ethinyl 1 tab PO QAM 02/14/20 02/22/22 estradiol 30 mcg(21)/iron 75 mg(7) tablet (Junel FE 1.5 (28)) lisinopril 5 mg tablet 5 mg PO QAM 09/15/20 02/22/22 duloxetine 60 mg capsule,delayed 60 mg PO QAM 03/04/21 02/22/22 release dicyclomine 20 mg tablet 20 mg PO Q6 PRN Muscle Spasm 10/28/21 02/22/22 famotidine 20 mg tablet 20 mg PO HS 10/28/21 02/22/22 metformin 500 mg tablet,extended 500 mg PO QDD 10/28/21 02/22/22 release 24 hr amitriptyline 50 mg tablet 50 mg PO HS 02/22/22 02/22/22 lorazepam 0.5 mg tablet (Ativan) 0.5 mg PO TID PRN Anxiety 02/22/22 02/22/22 vitamin B complex 1 tab PO DAILY 02/22/22 02/22/22 Previous Rx's Medication Instructions Recorded capsaicin 0.033 % topical cream 1 applic EXT BID PRN pain #56.6 11/01/21 (Zostrix) grams lidocaine 5 % topical patch 1 patch transdermal QAM PRN pain 11/01/21 #15 ea Results & Data (ED) Vital Signs Vital Signs - 24 hr 02/22/22 17:19 02/22/22 19:10 02/22/22 19:18 Temperature 36.2 C L Temperature Source Temporal Artery Scan Pulse Rate 122 H 124 H Pulse Rate [Left Finger] Pulse Rate from SpO2 Sensor 119 H Pulse Rhythm [Left Finger] Pulse Strength [Left Finger] Respiratory Rate 20 20 Respiratory Effort / Characteristics Non-Labored Respiratory Depth Normal Respiratory Pattern Blood Pressure 102/62 92/57 L Blood Pressure [Left Arm] 92/60 L Blood Pressure Mean 75 68 Blood Pressure Mean [Left Arm] 70 Blood Pressure Position [Left Arm] Sitting Pulse Oximetry 96 95 Oxygen Delivery Method Room Air Oxygen Flow Rate Sepsis Recent Fever Within 48 Hours No Sepsis New/Unexplained Change in Mental Status N/A Sepsis Action Taken by Nursing No Action Required 02/22/22 21:44 02/22/22 22:55 02/22/22 22:55 Temperature 36.5 C Temperature Source Pulse Rate 117 H Pulse Rate [Left Finger] 88 Pulse Rate from SpO2 Sensor 115 H Pulse Rhythm [Left Finger] Regular Pulse Strength [Left Finger] Normal Respiratory Rate 20 16 Respiratory Effort / Characteristics Non-Labored Respiratory Depth Normal Respiratory Pattern Regular Blood Pressure 95/39 L Blood Pressure [Left Arm] 104/68 Blood Pressure Mean 57 Blood Pressure Mean [Left Arm] 80 Blood Pressure Position [Left Arm] Lying Pulse Oximetry 98 96 Oxygen Delivery Method Room Air Oxymask Oxygen Flow Rate 6 Sepsis Recent Fever Within 48 Hours Sepsis New/Unexplained Change in Mental Status Sepsis Action Taken by Nursing 02/22/22 23:00 02/22/22 23:00 02/22/22 23:05 Temperature Temperature Source Pulse Rate 109 H 108 H Pulse Rate [Left Finger] Pulse Rate from SpO2 Sensor 94 H 107 H Pulse Rhythm [Left Finger] Pulse Strength [Left Finger] Respiratory Rate 21 20 Respiratory Effort / Characteristics Respiratory Depth Respiratory Pattern Blood Pressure 82/38 L Blood Pressure [Left Arm] Blood Pressure Mean 55 Blood Pressure Mean [Left Arm] Blood Pressure Position [Left Arm] Pulse Oximetry 97 97 Oxygen Delivery Method Room Air Oxygen Flow Rate Sepsis Recent Fever Within 48 Hours Sepsis New/Unexplained Change in Mental Status Sepsis Action Taken by Nursing 02/22/22 23:05 02/22/22 23:10 02/22/22 23:10 Temperature Temperature Source Pulse Rate 113 H Pulse Rate [Left Finger] Pulse Rate from SpO2 Sensor 106 H Pulse Rhythm [Left Finger] Pulse Strength [Left Finger] Respiratory Rate 19 Respiratory Effort / Characteristics Respiratory Depth Respiratory Pattern Blood Pressure 94/43 L 86/64 L Blood Pressure [Left Arm] Blood Pressure Mean 68 68 Blood Pressure Mean [Left Arm] Blood Pressure Position [Left Arm] Pulse Oximetry 96 Oxygen Delivery Method Oxygen Flow Rate Sepsis Recent Fever Within 48 Hours Sepsis New/Unexplained Change in Mental Status Sepsis Action Taken by Nursing 02/22/22 23:15 02/22/22 23:15 02/22/22 23:20 Temperature Temperature Source Pulse Rate 111 H Pulse Rate [Left Finger] Pulse Rate from SpO2 Sensor 112 H Pulse Rhythm [Left Finger] Pulse Strength [Left Finger] Respiratory Rate 18 Respiratory Effort / Characteristics Respiratory Depth Respiratory Pattern Blood Pressure 96/48 L 88/56 L Blood Pressure [Left Arm] Blood Pressure Mean 72 60 Blood Pressure Mean [Left Arm] Blood Pressure Position [Left Arm] Pulse Oximetry 96 Oxygen Delivery Method Oxygen Flow Rate Sepsis Recent Fever Within 48 Hours Sepsis New/Unexplained Change in Mental Status Sepsis Action Taken by Nursing 02/22/22 23:20 Temperature 36.6 C Temperature Source Pulse Rate 109 H Pulse Rate [Left Finger] Pulse Rate from SpO2 Sensor 110 H Pulse Rhythm [Left Finger] Pulse Strength [Left Finger] Respiratory Rate 16 Respiratory Effort / Characteristics Respiratory Depth Respiratory Pattern Blood Pressure Blood Pressure [Left Arm] Blood Pressure Mean Blood Pressure Mean [Left Arm] Blood Pressure Position [Left Arm] Pulse Oximetry 97 Oxygen Delivery Method Room Air Oxygen Flow Rate Sepsis Recent Fever Within 48 Hours Sepsis New/Unexplained Change in Mental Status Sepsis Action Taken by Nursing Laboratory Data Attestation: I reviewed the patient's lab results. Result diagrams: 02/22/22 18:07 02/22/22 18:07 Lab Results 02/22/22 02/22/22 02/22/22 Range/Units 18:07 18:07 18:07 WBC 27.85 H (4.8-10.8) K/ul RBC 4.13 (3.93-5.22) M/uL Hgb 12.4 (12.0-16.0) g/dl Hct 36.1 (34.1-44.9) % MCV 87.4 (80.0-100.0) fL MCH 30.0 (25.0-34.0) pg MCHC 34.3 (32.0-36.0) g/dL RDW Std Deviation 40.3 (36.4-46.3) fL RDW Coeff of Kailee 12.9 (11.5-14.5) % Plt Count 335 (130-400) K/uL MPV 9.0 L (9.4-12.3) fL Immature Gran % (Auto) 3.2 % Neut % (Auto) 89.3 % Lymph % (Auto) 2.4 % Summers % (Auto) 4.8 % Eos % (Auto) 0.0 % Baso % (Auto) 0.3 % Neut # (Auto) 24.86 H (1.4-6.5) K/uL Lymph # (Auto) 0.68 L (1.2-3.4) K/uL Summers # (Auto) 1.35 H (0.24-0.82) K/uL Eos # (Auto) 0.01 (0-0.50) K/uL Baso # (Auto) 0.07 (0-0.2) K/uL Immature Gran # (Auto) 0.88 H (0.00-0.02) K/uL Sodium 133 L (136-145) mmol/L Potassium 4.0 (3.5-5.1) mmol/L Chloride 105 (98-107) mmol/L Carbon Dioxide 19 L (21-32) mmol/L Anion Gap 9 (3-11) BUN 29 H (6-23) mg/dl Creatinine 1.95 H (0.6-1.2) mg/dl Est Cr Clr Drug Dosing 38.9 ml/min Est GFR ( Amer) 34.4 ml/min Est GFR (Non-Af Amer) 29.7 ml/min BUN/Creatinine Ratio 14.9 (10-20) Glucose 128 H (70-99(Fasting)) mg/dl Lactate (0.4-2.0) mmol/L Calcium 9.0 (8.5-10.1) mg/dl Total Bilirubin 1.7 H (0.2-1.0) mg/dl Direct Bilirubin 0.7 H (0-0.2) mg/dl AST 27 (13-39) U/L ALT 32 (7-52) U/L Alkaline Phosphatase 52 (34-104) U/L Total Protein 7.9 (6.0-8.3) gm/dl Albumin 4.0 (3.4-5.0) gm/dl Globulin 3.9 (2.5-4.0) gm/dl Albumin/Globulin Ratio 1.0 (0.9-2) Procalcitonin (0-0.5) ng/ml Urine Color Urine Appearance (Clear) Urine pH (4.5-7.5) Ur Specific [place] (1.000-1.030) Urine Protein (Negative) Urine Glucose (UA) (Negative) Urine Ketones (Negative) Urine Blood (Negative) Urine Nitrite (Negative) Urine Bilirubin (Negative) Urine Urobilinogen (Negative) Ur Leukocyte Esterase (Negative) Urine WBC (Auto) (0-5) /hpf Urine RBC (Auto) (0-4) /hpf U Hyaline Cast (Auto) (0-5) /lpf U Epithel Cells (Auto) (0-5) /lpf Urine Bacteria (Auto) (Negative) SARS-CoV-2, RNA, NAAT (NEGATIVE) 02/22/22 02/22/22 02/22/22 Range/Units 19:06 19:06 21:10 WBC (4.8-10.8) K/ul RBC (3.93-5.22) M/uL Hgb (12.0-16.0) g/dl Hct (34.1-44.9) % MCV (80.0-100.0) fL MCH (25.0-34.0) pg MCHC (32.0-36.0) g/dL RDW Std Deviation (36.4-46.3) fL RDW Coeff of Kailee (11.5-14.5) % Plt Count (130-400) K/uL MPV (9.4-12.3) fL Immature Gran % (Auto) % Neut % (Auto) % Lymph % (Auto) % [place] % (Auto) % Eos % (Auto) % Baso % (Auto) % Neut # (Auto) (1.4-6.5) K/uL Lymph # (Auto) (1.2-3.4) K/uL [place] # (Auto) (0.24-0.82) K/uL Eos # (Auto) (0-0.50) K/uL Baso # (Auto) (0-0.2) K/uL Immature Gran # (Auto) (0.00-0.02) K/uL Sodium (136-145) mmol/L Potassium (3.5-5.1) mmol/L Chloride (98-107) mmol/L Carbon Dioxide (21-32) mmol/L Anion Gap (3-11) BUN (6-23) mg/dl Creatinine (0.6-1.2) mg/dl Est Cr Clr Drug Dosing ml/min Est GFR ( Amer) ml/min Est GFR (Non-Af Amer) ml/min BUN/Creatinine Ratio (10-20) Glucose (70-99(Fasting)) mg/dl Lactate (0.4-2.0) mmol/L Calcium (8.5-10.1) mg/dl Total Bilirubin (0.2-1.0) mg/dl Direct Bilirubin (0-0.2) mg/dl AST (13-39) U/L ALT (7-52) U/L Alkaline Phosphatase (34-104) U/L Total Protein (6.0-8.3) gm/dl Albumin (3.4-5.0) gm/dl Globulin (2.5-4.0) gm/dl Albumin/Globulin Ratio (0.9-2) Procalcitonin 5.32 H (0-0.5) ng/ml Urine Color [place] Urine Appearance Turbid A (Clear) Urine pH 5.5 (4.5-7.5) Ur Specific [place] 1.023 (1.000-1.030) Urine Protein 1+ H (Negative) Urine Glucose (UA) Negative (Negative) Urine Ketones Trace H (Negative) Urine Blood 2+ H (Negative) Urine Nitrite Positive A (Negative) Urine Bilirubin 1+ H (Negative) Urine Urobilinogen Negative (Negative) Ur Leukocyte Esterase 2+ H (Negative) Urine WBC (Auto) >30 H (0-5) /hpf Urine RBC (Auto) 0-4 (0-4) /hpf U Hyaline Cast (Auto) 0 (0-5) /lpf U Epithel Cells (Auto) >30 H (0-5) /lpf Urine Bacteria (Auto) 3+ H (Negative) SARS-CoV-2, RNA, NAAT NEGATIVE (NEGATIVE) 02/22/22 Range/Units 21:10 WBC (4.8-10.8) K/ul RBC (3.93-5.22) M/uL Hgb (12.0-16.0) g/dl Hct (34.1-44.9) % MCV (80.0-100.0) fL MCH (25.0-34.0) pg MCHC (32.0-36.0) g/dL RDW Std Deviation (36.4-46.3) fL RDW Coeff of [place] (11.5-14.5) % Plt Count (130-400) K/uL MPV (9.4-12.3) fL Immature Gran % (Auto) % Neut % (Auto) % Lymph % (Auto) % [place] % (Auto) % Eos % (Auto) % Baso % (Auto) % Neut # (Auto) (1.4-6.5) K/uL Lymph # (Auto) (1.2-3.4) K/uL [place] # (Auto) (0.24-0.82) K/uL Eos # (Auto) (0-0.50) K/uL Baso # (Auto) (0-0.2) K/uL Immature Gran # (Auto) (0.00-0.02) K/uL Sodium (136-145) mmol/L Potassium (3.5-5.1) mmol/L Chloride (98-107) mmol/L Carbon Dioxide (21-32) mmol/L Anion Gap (3-11) BUN (6-23) mg/dl Creatinine (0.6-1.2) mg/dl Est Cr Clr Drug Dosing ml/min Est GFR ( Amer) ml/min Est GFR (Non-Af Amer) ml/min BUN/Creatinine Ratio (10-20) Glucose (70-99(Fasting)) mg/dl Lactate 1.4 (0.4-2.0) mmol/L Calcium (8.5-10.1) mg/dl Total Bilirubin (0.2-1.0) mg/dl Direct Bilirubin (0-0.2) mg/dl AST (13-39) U/L ALT (7-52) U/L Alkaline Phosphatase (34-104) U/L Total Protein (6.0-8.3) gm/dl Albumin (3.4-5.0) gm/dl Globulin (2.5-4.0) gm/dl Albumin/Globulin Ratio (0.9-2) Procalcitonin (0-0.5) ng/ml Urine Color Urine Appearance (Clear) Urine pH (4.5-7.5) Ur Specific [place] (1.000-1.030) Urine Protein (Negative) Urine Glucose (UA) (Negative) Urine Ketones (Negative) Urine Blood (Negative) Urine Nitrite (Negative) Urine Bilirubin (Negative) Urine Urobilinogen (Negative) Ur Leukocyte Esterase (Negative) Urine WBC (Auto) (0-5) /hpf Urine RBC (Auto) (0-4) /hpf U Hyaline Cast (Auto) (0-5) /lpf U Epithel Cells (Auto) (0-5) /lpf Urine Bacteria (Auto) (Negative) SARS-CoV-2, RNA, NAAT (NEGATIVE) Administered Medications Acetaminophen (Acetaminophen 325 Mg Tab) 650 mg PO Q4H PRN PRN Reason: Pain or Fever Stop: 03/25/22 00:26 Last Admin: 02/23/22 01:34 Dose: 650 mg Documented By: STEPHANIE Sodium Chloride (Nss) 500 mls @ 125 mls/hr IV .Q4H VALERI Stop: 03/24/22 21:14 Last Admin: 02/23/22 00:55 Dose: 125 mls/hr Documented By: STEPHANIE Discontinued Medications Diatrizoate Meglumine (Diatrizoate Meglumine 30% 100ml Vial) 10 ml INSTIL ONCE ONE Stop: 02/22/22 22:57 Last Admin: 02/22/22 22:56 Dose: 10 ml Documented By: [id number] Fentanyl Citrate (Fentanyl Citrate 100 Mcg/2 Ml Vial) 50 mcg IV NOW STA Stop: 02/22/22 19:30 Last Admin: 02/22/22 19:36 Dose: 50 mcg Documented By: HARSHIL Sodium Chloride (Nss 1000ml) 1,000 mls @ 999 mls/hr IV .Q1H1M ONE Stop: 02/22/22 20:04 Last Infusion: 02/22/22 21:13 Dose: 0 mls/hr Documented By: Admin: 02/22/22 19:17 Dose: 999 mls/hr Documented By: HARSHIL Acetaminophen (Ofirmev) 1,000 mg in 100 mls @ 400 mls/hr IV NOW STA Stop: 02/22/22 19:40 Last Infusion: 02/22/22 21:22 Dose: 0 mls/hr Documented By: Admin: 02/22/22 19:36 Dose: 400 mls/hr Documented By: HARSHIL Sodium Chloride (Nss 1000ml) 1,000 mls @ 999 mls/hr IV .Q1H1M ONE Stop: 02/22/22 21:54 Last Infusion: 02/23/22 00:45 Dose: 0 mls/hr Documented By: Admin: 02/22/22 21:29 Dose: 999 mls/hr Documented By: HARSHIL Piperacillin Sod/Tazobactam Sod (Zosyn) 4.5 gm in 120 mls @ 240 mls/hr IV NOW STA Stop: 02/22/22 21:42 Last Infusion: 02/23/22 00:41 Dose: 0 mls/hr Documented By: Admin: 02/22/22 21:25 Dose: 240 mls/hr Documented By: HARSHIL Sodium Chloride (Nss) 500 mls @ 500 mls/hr IV .Q1H VALERI Stop: 02/23/22 01:26 Last Admin: 02/23/22 01:31 Dose: 500 mls/hr Documented By: STEPHANIE Ondansetron HCl (Ondansetron Inj 2 Mg/Ml 2 Ml Vial) 4 mg IV NOW STA Stop: 02/22/22 19:27 Last Admin: 02/22/22 19:36 Dose: 4 mg Documented By: HARSHIL Imaging Data Radiologist's Impression: Abdomen/Pelvis CT 02/22/22 19:[address] WITHOUT CONTRAST CT DOSE: 1257.34 mGy.cm HISTORY: rlq abd pain, leukocytosis, ARF TECHNIQUE: Multiaxial CT images of the abdomen and pelvis were performed without contrast. A dose lowering technique was utilized adhering to the principles of ALARA. COMPARISON STUDY: Abdomen and pelvis CT 06/03/2021. FINDINGS: A few bibasilar linear densities consistent with subsegmental atelectasis. There is a trace right pleural effusion. No pneumoperitoneum. No pneumatosis. No fractures within the visualized osseous structures. Small fat- containing umbilical and supraumbilical hernias remain unchanged. Hepatic steatosis. Cholecystectomy. The unenhanced spleen and pancreas unremarkable. Stable bilateral adrenal gland nodules with the largest on the right measuring 1.7 cm. These are consistent with benign adenomas. Normal caliber abdominal aorta. No retroperitoneal lymphadenopathy. The there is a punctate stone within the lower pole the left kidney. Stable cortical calcification within the left kidney. No right renal calculi. There is right perinephric edema. There is moderate right hydroureteronephrosis secondary to an obstructing stone within the distal right ureter on image 402. This measures 7 mm. This is 5 cm from the right ureterovesical junction. The bladder is unremarkable. The uterus and bilateral adnexa are within normal limits. Suboptimal evaluation for bowel pathology due to the lack of intravenous and oral contrast. However, there is no definite bowel wall thickening or obstruction. Normal appendix. No left-sided hydronephrosis. IMPRESSION: 1. A 7 mm obstructing stone within the distal right ureter resulting in moderate right hydroureteronephrosis. 2. Left-sided nephrolithiasis. 3. No bowel wall thickening or obstruction. 4. Normal appendix. 5. Additional findings as described above. ACT 112: Negative or not required by law. Electronically signed by: Adair Bennett M.D. 02/22/2022 8:04 PM Discharge Plan Visit Data Chief Complaint: Abdominal Pain ED Provider: Miller Raymond Discharge Problem: Sepsis, Right ureteral calculus, Hydronephrosis due to obstruction of ureter, UTI (urinary tract infection) Discharge Instructions Interventions: ED Discharge Assessment Last Done: 02/22/22 21:47
[2022-02-23] MEDS ORDERED: LORazepam 0.5 MG TAB PO PRN (00:27)
[2022-02-23] MEDS ORDERED: CAPSAICIN CR 0.075% 60 GM TUBE EXT PRN (00:27)
[2022-02-23] MEDS ORDERED: RIZATRIPTAN BENZOATE 10 MG TAB PO PRN (00:27)
[2022-02-23] MEDS ORDERED: ONDANSETRON INJ 2 MG/ML 2 ML VIAL IV PRN (00:27)
[2022-02-23] MEDS ORDERED: NITROGLYCERIN SL 0.4 MG/TAB TAB SL PRN (00:27)
[2022-02-23] MEDS ORDERED: SODIUM CHLORIDE 0.9% 500 ML IV SCH (00:27)
[2022-02-23] MEDS ORDERED: FLUTICASONE PROPIONATE NA SPR 16 GM BTL PRN (00:27)
[2022-02-23] MEDS: SODIUM CHLORIDE 0.9% 500 ML IV SCH ×2 (00:55→05:01)
[2022-02-23] MEDS ORDERED: EPINEPHrine INJ 1 MG/ML AMP IM PRN (01:10)
[2022-02-23] MEDS: ACETAMINOPHEN 325 MG TAB PO PRN ×3 (01:34→17:35)
[2022-02-23] MEDS ORDERED: PIPERACILLIN/TAZOBACTAM 3.375 GM in DEXTROSE 5% 100 ML IV SCH (04:00)
[2022-02-23] MEDS ORDERED: SODIUM CHLORIDE 0.9% 1000ML 1,000 ML IV SCH (05:15)
[2022-02-23] MEDS: HEPARIN SOD 5,000 UNIT/0.5 ML VIAL SQ SCH ×3 (05:22→19:56)
[2022-02-23] MEDS: LEVOTHYROXINE SODIUM 50 MCG TABLET PO SCH (05:23)
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
[2022-02-23 06:27] LABS: Hematocrit (blood only) 31.4 % (34.1-44.9); Hemoglobin 10.5 g/dl (12.0-16.0); Mean Corpuscular Hemoglobin 29.8 pg (25.0-34.0); Mean Corpuscular Hgb Conc 33.4 g/dL (32.0-36.0); Mean Corpuscular Volume 89.2 fL (80.0-100.0); Platelet Count 240 K/uL (130-400); RDW Coefficient of Variation 12.9 % (11.5-14.5); RDW Standard Deviation 41.8 fL (36.4-46.3); Red Blood Count 3.52 M/uL (3.93-5.22)
[2022-02-23 06:54] LABS: Basophils # (auto) 0.07 K/uL (0-0.2); Basophils % (auto) 0.3 %; Echinocytes 1+; Eosinophils # (auto) 0.06 K/uL (0-0.50); Eosinophils % (auto) 0.3 %; Immature Granulocytes # (auto) 0.43 K/uL (0.00-0.02); Lymphocytes # (auto) 0.54 K/uL (1.2-3.4); Lymphocytes % (auto) 2.5 %; Monocytes # (auto) 1.14 K/uL (0.24-0.82); Monocytes % (auto) 5.2 %; Neutrophils # (auto) 19.76 K/uL (1.4-6.5); Neutrophils % (auto) 89.7 %; Polychromasia 1+
[2022-02-23 06:57] LABS: BUN Creatinine Ratio 16.8 (10-20); Calcium 7.9 mg/dl (8.5-10.1); Creatinine Clr Calc Pharmacy 46.1 ml/min; Est GFR (African American) 41.5 ml/min; Est GFR (Non-African American) 35.8 ml/min; Magnesium 1.6 mg/dl (1.7-2.4); Potassium 3.6 mmol/L (3.5-5.1)
--- NOTE | 2022-02-23 07:29 | Fluoroscopy Report ---
FL retrograde includes kub CLINICAL HISTORY: RIGHT CYSTO/STENT COMPARISON STUDY: CT of the abdomen and pelvis February 22, 2022 at 7:49 PM. FLUOROSCOPY TIME: 38 seconds. FLUOROSCOPIC IMAGES: 6 FINDINGS: Fluoroscopy was provided during cystoscopy, right retrograde exam and right ureteral stent placement. The right ureteral stent is well-positioned. IMPRESSION: Fluoroscopy provided during cystoscopy, right retrograde exam and right ureteral stent i nsertion. ACT 112: Negative or not required by law. Electronically signed by: Saud Espinosa M.D. 02/23/2022 7:28 AM
[2022-02-23] MEDS ORDERED: MAGNESIUM SULFATE / D5W 1 GM/100 ML BAG IV ONE (07:41)
[2022-02-23] MEDS ORDERED: POTASSIUM CHLORIDE CRTAB 20 MEQ TABCR PO STA (07:41)
[2022-02-23] MEDS: LACTATED RINGER'S 1,000 ML IV SCH ×2 (07:57→16:22)
[2022-02-23] MEDS: ADVANCED PROBIOTIC 1250 MG CAPSULE PO SCH (08:02)
[2022-02-23] MEDS: lamoTRIgine 100 MG TAB PO SCH (08:03)
[2022-02-23] MEDS: DULoxetine HCL 60 MG CAP PO SCH (08:03)
[2022-02-23] MEDS: MAGNESIUM OXIDE 400 MG TAB PO SCH (08:03)
[2022-02-23] MEDS: DICYCLOMINE HCL 20 MG TAB PO PRN ×2 (08:03→17:35)
[2022-02-23] MEDS: DOCUSATE SODIUM 100 MG CAP PO SCH (08:04)
[2022-02-23] MEDS: CETIRIZINE HCL 10 MG TABLET PO SCH (08:04)
[2022-02-23] MEDS: GABAPENTIN 300 MG CAP PO SCH ×3 (08:04→19:52)
[2022-02-23] MEDS: CYANOCOBALAMIN (B-12) 500 MCG TABLET PO SCH (08:04)
[2022-02-23] MEDS: CYCLOBENZAPRINE HCL 10 MG TAB PO SCH ×2 (08:04→19:50)
[2022-02-23] MEDS: TOPIRAMATE 100 MG TAB PO SCH ×2 (08:04→19:54)
[2022-02-23] MEDS: FERROUS SULFATE 325 MG TAB PO SCH (08:04)
[2022-02-23] MEDS: GABAPENTIN 800 MG TAB PO SCH ×3 (08:04→19:50)
[2022-02-23] MEDS: FLUTICASONE/VILANTEROL 200/25MCG 14 PUFFS/INHALER INH SCH (08:05)
[2022-02-23] MEDS: VITAMIN B COMPLEX TAB PO SCH (08:05)
[2022-02-23 08:13] LABS: Estimated Average Glucose 114 mg/dl; Hemoglobin A1C 5.6 % (4.5-5.6)
--- NOTE | 2022-02-23 08:52 | Urology Progress Note ---
Date of Service February 23, 2022 Assessment & Plan (1) Sepsis: (2) Hydronephrosis due to obstruction of ureter: (3) Ureteral calculus: Plan: 46 yo F admitted for urosepsis secondary to right distal ureteral stone. - Pt POD#1 s/p emergent cystoscopy and right ureteral stent placement with Dr. Hayes. - Afebrile, lab work reviewed - creatinine and WBC downtrending (Creatinine 1.67, WBC 22.00). - Urine and blood cultures are pending - continue broad spectrum antibiotics and narrow per sensitivity data when available. - Tolerating right ureteral stent with minimal bother. - Continue antibiotics and supportive care per hospital medicine. - We discussed need for stone treatment in the future after acute infection has been treated. - Recommend d/c with PO antibiotics, Tamsulosin, prn Pyridium and oxybutynin when medically stable. - Will dc Salinas catheter today. Monitor for void. - Expected clinical course reviewed, all questions answered. - Will arrange outpatient follow-up with our service to discuss definitive stone management. Admission and Anticipated Discharge Date Admission Date: February 22, 2022 Supervising Physician Co-Signing Physician Notes I have discussed Ms. Banerjee's case with BERNARDINO Mai and agree with the above documentation. Should have adequate source control with ureteral stent in position. Agree with continuing antibiotics and narrowing as culture data becomes available. We will hold off on definitive stone removal until infection has cleared. Subjective POD #1 s/p emergent cystoscopy and right ureteral stent placement. Patient seen and examined at bedside this morning. Reports subjective improvement this morning. No fever or chills overnight. Reports mild right flank discomfort. Salinas patent and draining cloudy yellow urine. No nausea or vomiting. Review of Systems Constitutional: as per Subjective / HPI Gastrointestinal: as per Subjective / HPI Genitourinary: as per Subjective / HPI Physical Exam Constitutional: well developed and well nourished; no acute distress Respiratory: normal respiratory effort; no respiratory distress and no labored breathing Gastrointestinal (Abdomen): Inspection/Auscultation: abdomen normal to inspection; abdomen not distended Percussion/Palpation: + abdomen tender (mild tenderness to palpation at right lower quadrant) and abdomen soft; no guarding Musculoskeletal: Head/Neck/Chest: normocephalic and head atraumatic Neurologic: moves all extremities and awake Psychiatric: Orientation: alert and oriented x 3 Genitourinary: Salinas intact and draining cloudy yellow urine Results & Data ([facility]) Vital Signs (Past 12 Hours) Vital Signs Temp Pulse Pulse Resp BP BP Pulse Ox 02/23/22 08:07 37.1 C 102 H 19 110/67 96 02/23/22 03:22 107 H 17 94 02/23/22 03:01 37.0 C 105 H 18 103/60 93 02/23/22 01:21 100 H 22 97 02/23/22 00:11 02/22/22 23:51 36.6 C 107 H 18 95/73 L 96 02/22/22 23:30 36.5 C 108 H 17 96 02/22/22 23:30 101/56 L 02/22/22 23:25 87/61 L 02/22/22 23:25 108 H 18 96 02/22/22 23:20 36.6 C 109 H 16 97 02/22/22 23:20 88/56 L 02/22/22 23:15 111 H 18 96 02/22/22 23:15 96/48 L 02/22/22 23:10 113 H 19 96 02/22/22 23:10 86/64 L 02/22/22 23:05 94/43 L 02/22/22 23:05 108 H 20 97 02/22/22 23:00 109 H 21 97 02/22/22 23:00 82/38 L 02/22/22 22:55 36.5 C 117 H 16 96 02/22/22 22:55 95/39 L 02/22/22 21:44 88 20 104/68 98 O2 Del Method O2 Flow Rate FiO2 02/23/22 08:07 Room Air 02/23/22 03:22 0 21 02/23/22 03:01 CPAP 02/23/22 01:21 0 21 02/23/22 00:11 Room Air 02/22/22 23:51 Room Air 02/22/22 23:30 02/22/22 23:30 02/22/22 23:25 02/22/22 23:25 02/22/22 23:20 Room Air 02/22/22 23:20 02/22/22 23:15 02/22/22 23:15 02/22/22 23:10 02/22/22 23:10 02/22/22 23:05 02/22/22 23:05 Room Air 02/22/22 23:00 02/22/22 23:00 02/22/22 22:55 Oxymask 6 02/22/22 22:55 02/22/22 21:44 Room Air PG Care Time/CCT Total # of Minutes Spent Total Time Spent with Patient: Total time spent is greater than 50% in coordination of care (as documented) at patient's floor/unit and/or counseling patient: Coding Level of Care Code 82874 Subseq Hosp Care Lvl 2 Diagnoses Sepsis A41.9 Hydronephrosis due to obstruction of ureter N13.1 Ureteral calculus N20.1
[2022-02-23] MEDS ORDERED: PANTOprazole 40 MG TAB PO SCH (09:00)
[2022-02-23 09:58] LABS: A calco-baum cmplx NotReported Not Detected (NotDetected); Bact fragilis Not Reported Not Detected (NotDetected); C auris Not Reported Not Detected (NotDetected); CTX-M Resistant Gene Not Detected (NotDetected); Calbicans Not Reported Not Detected (NotDetected); Candida glabrata Not Reported Not Detected (NotDetected); Candida krusei Not Reported Not Detected (NotDetected); Cneoformans/gatti Not Reported Not Detected (NotDetected); Cparapsilosis Not Reported Not Detected (NotDetected); Ctropicalis Not Reported Not Detected (NotDetected); E cloacae compx Not Reported Not Detected (NotDetected); Efaecalis Not Reported Not Detected (NotDetected); Efaecium Not Reported Not Detected (NotDetected); Enterobacterales DETECTED (NotDetected); Enterobacterales Not Reported DETECTED (NotDetected); H influenzae Not Reported Not Detected (NotDetected); IMP Resistant Gene Not Detected (NotDetected); K aerogenes Not Reported Not Detected (NotDetected); KPC Resistant Gene Not Detected (NotDetected); Koxytoca Not Reported Not Detected (NotDetected); Kpneumoniae grp Not Reported Not Detected (NotDetected); Lmonocyt Not Reported Not Detected (NotDetected); N meningitidis Not Reported Not Detected (NotDetected); NDM Resistant Gene Not Detected (NotDetected); OXA 48 Like Resistant Gene Not Detected (NotDetected); P aeruginosa Not Reported Not Detected (NotDetected); Proteus spp Not Reported Not Detected (NotDetected); Salmonella spp Not Reported Not Detected (NotDetected); Smarcescens Not Reported Not Detected (NotDetected); Staph lugdunensis Not Reported Not Detected (NotDetected); Staph spp. Not Reported Not Detected (NotDetected); Staphaureus Not Reported Not Detected (NotDetected); Staphepi Not Reported Not Detected (NotDetected); Stenmaltophilia Not Reported Not Detected (NotDetected); Strep agal(GrpB) Not Reported Not Detected (NotDetected); Strep pneum Not Reported Not Detected (NotDetected); Strep pyog (GrpA) Not Reported Not Detected (NotDetected); Strep spp Not Reported Not Detected (NotDetected); VIM Resistant Gene Not Detected (NotDetected); mcr-1 Colistin Resistant Gene Not Detected (NotDetected)
[2022-02-23 10:08] LABS: Escherichia coli Not Reported DETECTED (NotDetected)
[2022-02-23] MEDS ORDERED: PIPERACILLIN/TAZOBACTAM 4.5 GM in DEXTROSE 5% 100 ML IV SCH (13:00)
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
[2022-02-23] MEDS ORDERED: CARBOHYDRATES FOR HYPOGLYCEMIA PO PRN (14:12)
[2022-02-23] MEDS ORDERED: PHARMACY GLYCEMIC MGMT CONSULT PRN (14:12)
[2022-02-23] MEDS ORDERED: GLUCOSE 10 TAB/TUBE PO PRN (14:12)
[2022-02-23] MEDS ORDERED: DEXTROSE 50% 50 ML SYRINGE IV PRN (14:12)
[2022-02-23] MEDS ORDERED: GLUCAGON FOR INJ 1 MG VIAL SQ PRN (14:12)
[2022-02-23] MEDS ORDERED: GLUCOSE 40% GEL 15 GM TUBE PO PRN (14:12)
--- NOTE | 2022-02-23 14:46 | Pharmacy Report ---
Pharmacy Glycemic Short Note 2 - Date of Service February 23, 2022 - Glycemic Short BSG Results (Last 24 hours): 02/22/22 02/22/22 02/23/22 18:07 23:56 06:06 Glucose 128 H 116 H POC Glucose 135 H 02/23/22 02/23/22 07:31 11:28 Glucose POC Glucose 127 H 200 H OUTPATIENT ANTIDIABETIC REGIMEN: * Metformin 500 mg PO QDD * A1c = 5.6% (02/23/22) ASSESSMENT: * 46 yo F admitted yesterday secondary to obstructive kidney stone requiring cystoscopy and stenting. Pharmacy was consulted this afternoon to assist with inpatient glycemic management. Unclear whether patient has DM as an outpatient. Does take Metformin but could be for other reasons than to DM. Ordered a T2DM diet. A1c excellent. * BSGs this afternoon was 200 mg/dL prompting consult. Previous BSGs were 135- 127 mg/dL. * Will start Novolog based on weight/stress of 1. No basal insulin required. * Holding metformin during admission given kidney function. Resume at discharge. PLAN FOR INPATIENT GLYCEMIC CONTROL: * Hold outpatient oral diabetes medications * Resume Metformin at discharge * Basal insulin * None * Bolus insulin * NovoLog per scale ACHS or Q6hrs while NPO * Goal Range: Low 110 mg/dL - High 140 mg/dL * Correction Factor: 45 mg/dL/unit * Nutritional / Prandial insulin per carb ratio of 1 unit per 15 grams CHO consumed * Pharmacy will sign off at this time. Thank you for this consult. Please feel free to reconsult, if necessary.
[2022-02-23] MEDS ORDERED: PHENAZOPYRIDINE HCL 100 MG TAB PO PRN (16:30)
[2022-02-23] MEDS ORDERED: MoRPHine SULFATE 2 MG/ML CARP IV PRN (16:31)
[2022-02-23] MEDS: INSULIN ASPART PER UNIT SC SCH ×2 (17:37→19:42)
[2022-02-23] MEDS ORDERED: ALBUT/IPRATROP 3MG/0.5MG NEB 3 ML VIAL NEB PRN (18:15)
[2022-02-23] MEDS ORDERED: ALBUTEROL 0.5% NEB SOLN 2.5 MG/0.5 ML VIAL NEB PRN (18:20)
[2022-02-23] MEDS ORDERED: FLUTICASONE/VILANTEROL 100/25MCG 14 PUFFS/INHALER INH SCH (18:30)
[2022-02-23] MEDS: HYDROmorphone INJ 0.5 MG/0.5 ML SYR IV PRN (18:50)
[2022-02-23] MEDS ORDERED: VANCOMYCIN CONSULT ACTIVE PRN (18:51)
[2022-02-23] MEDS ORDERED: VANCOMYCIN HCL 2,250 MG in SODIUM CHLORIDE 0.9% 500 ML IV ONE (19:30)
[2022-02-23] MEDS: AMITRIPTYLINE HCL 50 MG TAB PO SCH (19:49)
[2022-02-23] MEDS: FAMOTIDINE 20 MG TAB PO SCH (19:51)
[2022-02-23] MEDS: PRAZOSIN HCL 1 MG CAP PO SCH (19:54)
[2022-02-23] MEDS: hydrOXYzine HCl 25 MG TAB PO SCH (19:57)
[2022-02-23] MEDS ORDERED: cefTRIAXone SODIUM 2,000 MG in DEXTROSE 5% 50 ML IV SCH (21:00)
[2022-02-23] MEDS ORDERED: TAMSULOSIN HCL 0.4 MG CAP PO SCH (21:00)
[2022-02-23 21:08] LABS: Hematocrit (blood only) 29.5 % (34.1-44.9); Hemoglobin 10.1 g/dl (12.0-16.0); Mean Corpuscular Hemoglobin 29.5 pg (25.0-34.0); Mean Corpuscular Hgb Conc 34.2 g/dL (32.0-36.0); Mean Corpuscular Volume 86.3 fL (80.0-100.0); Mean Platelet Volume 9.5 fL (9.4-12.3); Platelet Count 234 K/uL (130-400); RDW Coefficient of Variation 12.8 % (11.5-14.5); RDW Standard Deviation 39.9 fL (36.4-46.3); Red Blood Count 3.42 M/uL (3.93-5.22)
[2022-02-23 21:15] LABS: Albumin Level 3.1 gm/dl (3.4-5.0); BUN Creatinine Ratio 16.9 (10-20); Bilirubin,Total 1.3 mg/dl (0.2-1.0); Calcium 8.1 mg/dl (8.5-10.1); Creatinine Clr Calc Pharmacy 56.6 ml/min; Est GFR (African American) 53.2 ml/min; Est GFR (Non-African American) 45.9 ml/min; Globulin 3.2 gm/dl (2.5-4.0); Magnesium 1.8 mg/dl (1.7-2.4); Potassium 3.7 mmol/L (3.5-5.1); Total Protein 6.3 gm/dl (6.0-8.3)
[2022-02-23] MEDS: LIDOCAINE 5% 1 PATCH TD SCH (21:30)
[2022-02-23] MEDS ORDERED: SODIUM BICARB 8.4% INJ 50 MEQ/50 ML SYR IV STA (21:33)
[2022-02-23 21:43] LABS: Basophils # (auto) 0.05 K/uL (0-0.2); Basophils % (auto) 0.3 %; Dohle Bodies 1+; Echinocytes 1+; Eosinophils # (auto) 0.11 K/uL (0-0.50); Eosinophils % (auto) 0.6 %; Immature Granulocytes # (auto) 0.26 K/uL (0.00-0.02); Immature Granulocytes % (auto) 1.4 %; Lymphocytes # (auto) 0.63 K/uL (1.2-3.4); Lymphocytes % (auto) 3.3 %; Monocytes # (auto) 1.01 K/uL (0.24-0.82); Monocytes % (auto) 5.3 %; Neutrophils # (auto) 16.84 K/uL (1.4-6.5); Neutrophils % (auto) 89.1 %
--- NOTE | 2022-02-23 22:11 | XRay Report ---
XR chest 1V portable CLINICAL HISTORY: sob TECHNIQUE: Single frontal radiograph of the chest was obtained. Comparison: Comparison is made to chest radiograph 03/04/2021 FINDINGS: No lines and tubes are seen. Cardiomegaly is noted. The lungs are clear. No evidence of pleural effus ion or pneumothorax. IMPRESSION: No acute chest disease. ACT 112: Negative or not required by law. Electronically signed by: Lawrence Garza M.D. 02/23/2022 10:09 PM
[2022-02-23] MEDS: MEROPENEM 500 MG in SYRINGE 0 ML IV SCH (23:11)
--- NOTE | 2022-02-23 23:44 | XRay Report ---
XR KUB/Abdomen 1 view CLINICAL HISTORY: ureteral stent placement position TECHNIQUE: 1 view of the abdomen was obtained. Comparison: Comparison is made to abdomen radiograph 05/25/[address] abdomen pelvis 02/22/2022 FINDINGS: Right nephroureteral stent is seen. The osseous structures are grossly unremarkable. The bowel gas pa ttern is nonobstructive. A moderate amount of stool is noted within the large bowel. IMPRESSION: Satisfactory position of right nephroureteral stent. ACT 112: Negative or not required by law. Electronically signed by: Lawrence Garza M.D. 02/23/2022 11:43 PM
[2022-02-24] MEDS: HEPARIN SOD 5,000 UNIT/0.5 ML VIAL SQ SCH ×3 (04:26→20:32)
[2022-02-24] MEDS: LEVOTHYROXINE SODIUM 50 MCG TABLET PO SCH (04:28)
[2022-02-24] MEDS: MEROPENEM 500 MG in SYRINGE 0 ML IV SCH (06:21)
[2022-02-24 07:02] LABS: Hemoglobin 9.2 g/dl (12.0-16.0); Mean Corpuscular Hgb Conc 34.1 g/dL (32.0-36.0); Mean Corpuscular Volume 87.9 fL (80.0-100.0); Mean Platelet Volume 9.6 fL (9.4-12.3); Platelet Count 211 K/uL (130-400); RDW Standard Deviation 41.5 fL (36.4-46.3); Red Blood Count 3.07 M/uL (3.93-5.22); White Blood Count 16.88 K/ul (4.8-10.8)
[2022-02-24 07:21] LABS: BUN Creatinine Ratio 18.2 (10-20); Calcium 8.1 mg/dl (8.5-10.1); Creatinine Clr Calc Pharmacy 56.7 ml/min; Est GFR (African American) 52.7 ml/min; Est GFR (Non-African American) 45.5 ml/min; Potassium 3.6 mmol/L (3.5-5.1)
[2022-02-24 07:38] LABS: Basophils # (auto) 0.04 K/uL (0-0.2); Basophils % (auto) 0.2 %; Dohle Bodies 1+; Echinocytes 1+; Eosinophils # (auto) 0.09 K/uL (0-0.50); Eosinophils % (auto) 0.5 %; Immature Granulocytes # (auto) 0.24 K/uL (0.00-0.02); Immature Granulocytes % (auto) 1.4 %; Lymphocytes # (auto) 0.72 K/uL (1.2-3.4); Lymphocytes % (auto) 4.3 %; Monocytes # (auto) 0.81 K/uL (0.24-0.82); Monocytes % (auto) 4.8 %; Neutrophils # (auto) 14.98 K/uL (1.4-6.5); Neutrophils % (auto) 88.8 %; Polychromasia 1+
[2022-02-24 08:10] LABS: Magnesium 1.9 mg/dl (1.7-2.4); Phosphorus 1.5 mg/dl (2.5-4.9)
[2022-02-24] MEDS ORDERED: POTASSIUM PHOS 3 MMOL/1 ML INFUSION IV STA (08:19)
[2022-02-24] MEDS: FLUTICASONE/VILANTEROL 200/25MCG 14 PUFFS/INHALER INH SCH (08:26)
[2022-02-24] MEDS: CYANOCOBALAMIN (B-12) 500 MCG TABLET PO SCH (08:26)
[2022-02-24] MEDS: DULoxetine HCL 60 MG CAP PO SCH (08:26)
[2022-02-24] MEDS: CETIRIZINE HCL 10 MG TABLET PO SCH (08:26)
[2022-02-24] MEDS: TOPIRAMATE 100 MG TAB PO SCH ×2 (08:27→20:30)
[2022-02-24] MEDS: ADVANCED PROBIOTIC 1250 MG CAPSULE PO SCH (08:27)
[2022-02-24] MEDS: lamoTRIgine 100 MG TAB PO SCH (08:27)
[2022-02-24] MEDS: GABAPENTIN 800 MG TAB PO SCH ×3 (08:28→20:31)
[2022-02-24] MEDS: DOCUSATE SODIUM 100 MG CAP PO SCH (08:28)
[2022-02-24] MEDS: VITAMIN B COMPLEX TAB PO SCH (08:28)
[2022-02-24] MEDS: GABAPENTIN 300 MG CAP PO SCH ×3 (08:28→20:32)
[2022-02-24] MEDS: CYCLOBENZAPRINE HCL 10 MG TAB PO SCH ×2 (08:28→20:30)
[2022-02-24] MEDS: MAGNESIUM OXIDE 400 MG TAB PO SCH (08:28)
[2022-02-24] MEDS: FERROUS SULFATE 325 MG TAB PO SCH (08:28)
[2022-02-24] MEDS ORDERED: CHLORASEPTIC 1.4% SOLN 180 ML BTL MT PRN (08:29)
[2022-02-24] MEDS: INSULIN ASPART PER UNIT SC SCH ×4 (08:30→21:30)
[2022-02-24] MEDS: VANCOMYCIN HCL 750 MG in SODIUM CHLORIDE 0.9% 250 ML IV SCH ×2 (08:30→19:49)
[2022-02-24] MEDS: HYDROmorphone INJ 0.5 MG/0.5 ML SYR IV PRN (08:43)
[2022-02-24] MEDS ORDERED: POTASSIUM PHOSPHATE 30 MMOL in SODIUM CHLORIDE 0.9% 500 ML IV ONE (09:00)
[2022-02-24] MEDS: cefTRIAXone SODIUM 2,000 MG in DEXTROSE 5% 50 ML IV SCH (09:44)
--- NOTE | 2022-02-24 10:04 | Urology Progress Note ---
Date of Service February 24, 2022 Assessment & Plan (1) ALEXANDR (acute kidney injury): (2) Right ureteral calculus: (3) Sepsis: Plan Ureteral stent appears to be in good position. Still should be providing source control for the upper tracts. Could monitor for complete bladder emptying with PVRs. Agree with broadening antibiotics for now until culture and sensitivity data is available. It is not uncommon to have cyclic fevers with a pyelonephritis for 48 to 72 hours after decompression of the kidney -if she is still having fevers in another 1 to 2 days, would consider renal ultrasound for further evaluation of the kidneys and any residual hydronephrosis. Admission and Anticipated Discharge Date Admission Date: February 22, 2022 Subjective S/p ureteral stent placement on 02/22/2022. Had a fever overnight, no fevers since then. Original blood and urine cultures with gram-negative rods. Repeat blood cultures pending. Antibiotics were broadened overnight. WBC gradually downtrending. KUB confirms good position of the ureteral stent She is feeling fatigued and occasional chills/sweats Physical Exam Physical Exam: Flushed, tired appearing, NAD Results & Data ([facility]) Vital Signs (Past 12 Hours) Vital Signs Temp Pulse Pulse Resp BP Pulse Ox O2 Del Method 02/24/22 08:18 36.6 C 100 H 19 101/62 99 Room Air 02/24/22 07:43 103 H 02/24/22 03:00 107 H 22 93 02/24/22 02:31 36.6 C 116 H 21 97/65 L 97 CPAP 02/24/22 00:10 113 H 02/23/22 23:45 Room Air 02/23/22 23:05 37.3 C 114 H 18 98/68 L 92 CPAP 02/23/22 22:40 120 H 20 96 FiO2 02/24/22 08:18 02/24/22 07:43 02/24/22 03:00 21 02/24/22 02:31 02/24/22 00:10 02/23/22 23:45 02/23/22 23:05 02/23/22 22:40 21 PG Care Time/CCT Total # of Minutes Spent Total Time Spent with Patient: Total time spent is greater than 50% in coordination of care (as documented) at patient's floor/unit and/or counseling patient: Coding Level of Care Code 11311 Subseq Hosp Care Lvl 1 Diagnoses ALEXANDR (acute kidney injury) N17.9 Right ureteral calculus N20.1 Sepsis A41.9
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
--- NOTE | 2022-02-24 12:34 | Pharmacy Report ---
Pharmacy PK ABX Note - Date of Service February 24, 2022 - Assessment and Plan Assessment 46 year old F receiving ceftriaxone and vancomycin for treatment of UTI/Bacteremia/Sepsis. Vancomycin added yesterday empirically for continued fever. BC UC from 02/22 growing E. coli, 02/22 BC 4/4 GNB, UC & BC from 02/23 with GNB. Discussed discontinuation of vancomycin today, wishes to continue for another day. Plan Vancomycin * Loading dose: 2250 mg IV x 1 (given 02/23) * Maintenance dose: 750 mg IV every 12 hours * Regimen is predicted to achieve target AUC/ROSARIO of 400-600 mg/L.hr * Trough is ordered tomorrow AM in event vancomycin continued. Pharmacy will continue to follow and will adjust dose/frequency as necessary. Thank you. Pharmacy has transitioned to AUC monitoring for vancomycin. AUC/ROSARIO is the preferred PK/PD target and is associated with decreased risk of nephrotoxicity compared to traditional trough targets.
[2022-02-24] MEDS: ACETAMINOPHEN 325 MG TAB PO PRN (16:16)
[2022-02-24] MEDS: LIDOCAINE 5% 1 PATCH TD SCH (18:14)
[2022-02-24] MEDS: hydrOXYzine HCl 25 MG TAB PO SCH (20:29)
[2022-02-24] MEDS: AMITRIPTYLINE HCL 50 MG TAB PO SCH (20:30)
[2022-02-24] MEDS: FAMOTIDINE 20 MG TAB PO SCH (20:31)
[2022-02-24] MEDS: PRAZOSIN HCL 1 MG CAP PO SCH (20:31)
[2022-02-25] MEDS: LEVOTHYROXINE SODIUM 50 MCG TABLET PO SCH (05:54)
[2022-02-25] MEDS: HEPARIN SOD 5,000 UNIT/0.5 ML VIAL SQ SCH ×3 (05:54→21:04)
[2022-02-25 07:31] LABS: Basophils # (auto) 0.06 K/uL (0-0.2); Basophils % (auto) 0.4 %; Eosinophils # (auto) 0.19 K/uL (0-0.50); Eosinophils % (auto) 1.3 %; Hematocrit (blood only) 27.3 % (34.1-44.9); Hemoglobin 9.5 g/dl (12.0-16.0); Immature Granulocytes # (auto) 0.17 K/uL (0.00-0.02); Immature Granulocytes % (auto) 1.1 %; Lymphocytes # (auto) 1.09 K/uL (1.2-3.4); Lymphocytes % (auto) 7.2 %; Mean Corpuscular Hemoglobin 29.8 pg (25.0-34.0); Mean Corpuscular Hgb Conc 34.8 g/dL (32.0-36.0); Mean Corpuscular Volume 85.6 fL (80.0-100.0); Mean Platelet Volume 9.9 fL (9.4-12.3); Monocytes # (auto) 1.06 K/uL (0.24-0.82); Neutrophils # (auto) 12.63 K/uL (1.4-6.5); Platelet Count 258 K/uL (130-400); RDW Coefficient of Variation 13.1 % (11.5-14.5); RDW Standard Deviation 40.3 fL (36.4-46.3); Red Blood Count 3.19 M/uL (3.93-5.22)
[2022-02-25 07:55] LABS: BUN Creatinine Ratio 20.7 (10-20); Calcium 8.4 mg/dl (8.5-10.1); Creatinine Clr Calc Pharmacy 64.5 ml/min; Est GFR (African American) 61.3 ml/min; Est GFR (Non-African American) 52.9 ml/min; Phosphorus 2.4 mg/dl (2.5-4.9); Potassium 3.8 mmol/L (3.5-5.1)
[2022-02-25] MEDS: INSULIN ASPART PER UNIT SC SCH ×4 (08:32→21:12)
[2022-02-25] MEDS: DULoxetine HCL 60 MG CAP PO SCH (08:33)
[2022-02-25] MEDS: GABAPENTIN 300 MG CAP PO SCH ×3 (08:33→21:07)
[2022-02-25] MEDS: CYANOCOBALAMIN (B-12) 500 MCG TABLET PO SCH (08:33)
[2022-02-25] MEDS: GABAPENTIN 800 MG TAB PO SCH ×3 (08:33→21:06)
[2022-02-25] MEDS: FERROUS SULFATE 325 MG TAB PO SCH (08:33)
[2022-02-25] MEDS: lamoTRIgine 100 MG TAB PO SCH (08:33)
[2022-02-25] MEDS: FLUTICASONE/VILANTEROL 200/25MCG 14 PUFFS/INHALER INH SCH (08:33)
[2022-02-25] MEDS: ADVANCED PROBIOTIC 1250 MG CAPSULE PO SCH (08:33)
[2022-02-25] MEDS: VITAMIN B COMPLEX TAB PO SCH (08:33)
[2022-02-25] MEDS: DOCUSATE SODIUM 100 MG CAP PO SCH (08:34)
[2022-02-25] MEDS: TOPIRAMATE 100 MG TAB PO SCH ×2 (08:34→21:05)
[2022-02-25] MEDS: CETIRIZINE HCL 10 MG TABLET PO SCH (08:34)
[2022-02-25] MEDS: MAGNESIUM OXIDE 400 MG TAB PO SCH (08:34)
[2022-02-25] MEDS: cefTRIAXone SODIUM 2,000 MG in DEXTROSE 5% 50 ML IV SCH (08:34)
[2022-02-25] MEDS: CYCLOBENZAPRINE HCL 10 MG TAB PO SCH ×2 (08:34→21:06)
[2022-02-25] MEDS: HYDROmorphone INJ 0.5 MG/0.5 ML SYR IV PRN (08:40)
--- NOTE | 2022-02-25 09:02 | Urology Progress Note ---
Date of Service February 25, 2022 Assessment & Plan (1) Right ureteral calculus: (2) Sepsis: Plan Antibiotics narrowed to ceftriaxone based on culture data. Second round of blood cultures remains positive, should repeat today. If she has persistent fevers over the next 1 to 2 days, consider reimaging with renal ultrasound to assess for persistent hydronephrosis. For now, would also continue supportive care, hydration, stabilizing electrolytes. I recommended that she be up out of bed moving around as she is having some trouble with constipation as well. Admission and Anticipated Discharge Date Admission Date: February 22, 2022 Subjective Feeling a little bit better today, still having fevers and chills. Currently on ceftriaxone repeat blood cultures from 02/23/2022 still demonstrating gram-negative rods. Urine culture growing E. coli, sensitive to ceftriaxone. WBC slightly down today (15.2 from 16.8) Creatinine slightly down as well (1.21 from 1.37) Physical Exam Physical Exam: Slightly flushed, more alert and talkative today, NAD Respiratory: Breathing comfortably on room air Cardiovascular: Borderline tachycardia Results & Data ([facility]) Vital Signs (Past 12 Hours) Vital Signs Temp Pulse Pulse Resp BP BP Pulse Ox 02/25/22 07:41 37.2 C 104 H 17 128/82 97 02/25/22 07:20 91 H 02/25/22 03:00 36.8 C 88 20 98/49 L 95 02/25/22 02:39 98 H 21 94 02/25/22 00:00 02/24/22 23:00 86 02/24/22 23:01 36.6 C 90 18 102/68 94 02/24/22 22:19 101 H 20 94 O2 Del Method O2 Del Method FiO2 02/25/22 07:41 Room Air 02/25/22 07:20 02/25/22 03:00 CPAP 02/25/22 02:39 21 02/25/22 00:00 CPAP 02/24/22 23:00 02/24/22 23:01 CPAP 02/24/22 22:19 21 PG Care Time/CCT Total # of Minutes Spent Total Time Spent with Patient: Total time spent is greater than 50% in coordination of care (as documented) at patient's floor/unit and/or counseling patient: Coding Level of Care Code 81989 Subseq Hosp Care Lvl 1 Diagnoses Right ureteral calculus N20.1 Sepsis A41.9
[2022-02-25] MEDS ORDERED: POTASSIUM PHOS 3 MMOL/1 ML INFUSION IV STA (10:07)
[2022-02-25] MEDS ORDERED: POTASSIUM PHOSPHATE 15 MMOL in SODIUM CHLORIDE 0.9% 250 ML IV ONE (10:30)
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
[2022-02-25] MEDS: SENNA 8.6 MG TAB PO SCH (11:00)
[2022-02-25] MEDS: LIDOCAINE 5% 1 PATCH TD SCH (18:00)
[2022-02-25] MEDS: hydrOXYzine HCl 25 MG TAB PO SCH (21:05)
[2022-02-25] MEDS: FAMOTIDINE 20 MG TAB PO SCH (21:05)
[2022-02-25] MEDS: PRAZOSIN HCL 1 MG CAP PO SCH (21:07)
[2022-02-25] MEDS: AMITRIPTYLINE HCL 50 MG TAB PO SCH (21:07)
--- NOTE | 2022-02-25 22:35 | Ultrasound Report ---
ULTRASOUND KIDNEYS AND BLADDER CLINICAL HISTORY: Flank pain. COMPARISON STUDY: Abdominal CT dated 02/22/2022. KUB dated 02/23/2022. TECHNIQUE: Real-time, grayscale, and color flow sonography of the kidneys and bladder is performed. I mages are reviewed in the transverse and longitudinal planes. FINDINGS: Kidneys: The kidneys are normal in size and echotexture. The right kidney measures 14.1 cm in length and the left kidney measures 12.8 cm in length. There is no hydronephrosis. No shadowing renal calcu li are identified. There is no sonographic evidence of contour deforming renal mass lesion. No perine phric fluid is identified. Bladder: The bladder contains the distal end of the ureteral stent. The bladder is partially decompre ssed and grossly normal in appearance. Ureteral jets were not seen. IMPRESSION: 1. The kidneys are normal in size and without hydronephrosis. 2. A right ureteral stent is in place. 3. The bladder is decompressed and grossly unremarkable. ACT 112: Negative or not required by law. Electronically signed by: Meño Hendrickson M.D. 02/25/2022 10:34 PM
[2022-02-26] MEDS: HEPARIN SOD 5,000 UNIT/0.5 ML VIAL SQ SCH ×3 (06:02→21:00)
[2022-02-26] MEDS: LEVOTHYROXINE SODIUM 50 MCG TABLET PO SCH (06:03)
[2022-02-26 06:54] LABS: Hematocrit (blood only) 26.5 % (34.1-44.9); Hemoglobin 9.2 g/dl (12.0-16.0); Mean Corpuscular Hgb Conc 34.7 g/dL (32.0-36.0); Mean Corpuscular Volume 83.6 fL (80.0-100.0); Mean Platelet Volume 9.4 fL (9.4-12.3); Platelet Count 291 K/uL (130-400); RDW Coefficient of Variation 12.9 % (11.5-14.5); RDW Standard Deviation 39.3 fL (36.4-46.3); Red Blood Count 3.17 M/uL (3.93-5.22); White Blood Count 16.71 K/ul (4.8-10.8)
[2022-02-26 07:14] LABS: BUN Creatinine Ratio 19.7 (10-20); Calcium 8.6 mg/dl (8.5-10.1); Creatinine Clr Calc Pharmacy 63.1 ml/min; Est GFR (African American) 60.2 ml/min; Magnesium 1.9 mg/dl (1.7-2.4); Phosphorus 3.4 mg/dl (2.5-4.9); Potassium 3.7 mmol/L (3.5-5.1)
[2022-02-26] MEDS: INSULIN ASPART PER UNIT SC SCH ×4 (08:16→20:18)
[2022-02-26] MEDS: HYDROmorphone INJ 0.5 MG/0.5 ML SYR IV PRN (08:41)
[2022-02-26] MEDS: DOCUSATE SODIUM 100 MG CAP PO SCH (08:53)
[2022-02-26] MEDS: SENNA 8.6 MG TAB PO SCH (08:53)
[2022-02-26] MEDS: lamoTRIgine 100 MG TAB PO SCH (08:56)
[2022-02-26] MEDS: CETIRIZINE HCL 10 MG TABLET PO SCH (08:56)
[2022-02-26] MEDS: FLUTICASONE/VILANTEROL 200/25MCG 14 PUFFS/INHALER INH SCH (08:56)
[2022-02-26] MEDS: DULoxetine HCL 60 MG CAP PO SCH (08:56)
[2022-02-26] MEDS: VITAMIN B COMPLEX TAB PO SCH (08:56)
[2022-02-26] MEDS: CYANOCOBALAMIN (B-12) 500 MCG TABLET PO SCH (08:56)
[2022-02-26] MEDS: FERROUS SULFATE 325 MG TAB PO SCH (08:56)
[2022-02-26] MEDS: TOPIRAMATE 100 MG TAB PO SCH ×2 (08:56→19:39)
[2022-02-26] MEDS: GABAPENTIN 800 MG TAB PO SCH ×3 (08:56→19:37)
[2022-02-26] MEDS: GABAPENTIN 300 MG CAP PO SCH ×3 (08:56→19:37)
[2022-02-26] MEDS: MAGNESIUM OXIDE 400 MG TAB PO SCH (08:56)
[2022-02-26] MEDS: ADVANCED PROBIOTIC 1250 MG CAPSULE PO SCH (08:56)
[2022-02-26] MEDS: cefTRIAXone SODIUM 2,000 MG in DEXTROSE 5% 50 ML IV SCH (08:57)
[2022-02-26] MEDS: CYCLOBENZAPRINE HCL 10 MG TAB PO SCH ×2 (08:58→19:36)
--- NOTE | 2022-02-26 10:36 | Urology Progress Note ---
Date of Service February 26, 2022 Assessment & Plan (1) Right ureteral calculus: (2) Sepsis: Plan 46 yo F admitted for urosepsis secondary to right distal ureteral stone. - Pt POD# 4 s/p emergent cystoscopy and right ureteral stent placement with Dr. Hayes. - Renal ultrasound yesterday d/t persistent fevers reassuring, noted the right ureteral stent is in place, no hydronephrosis, and bladder decompressed and grossly unremarkable. - Afebrile (Tmax 37.6 in last 24hrs), lab work reviewed - creatinine 1.22, Wbc 16.71. - Urine/Blood cultures 02/22 with E.coli; Repeat BCx 02/23 prelim gram negative bacilli; repeat BCx 02/25 pending. - Continues on IV Ceftriaxone based on culture data, continue to follow. - Voiding spontaneously, continue to monitor. - Tolerating right ureteral stent with minimal bother. - Continue antibiotics and supportive care. - Recommend d/c with PO antibiotics, Tamsulosin, prn Pyridium for stent management when medically stable. - We discussed need for stone treatment in the future after acute infection has been treated. Will arrange outpatient follow-up with our service. - Urology will follow peripherally. Please contact us with any further questions, concerns, or changes in patient's status. Admission and Anticipated Discharge Date Admission Date: February 22, 2022 Subjective Patient examined at bedside this AM. Awake, sitting in bedside chair on arrival. Reports feeling a little better this morning. No fevers or chills. Some mild nausea, no vomiting. Tolerating diet. Tolerating ureteral stent with minimal bother. Does have some mild right sided flank pain. Voiding without issue. Denies hematuria or dysuria. Offered no additional complaints at time of exam. Review of Systems Constitutional: as per Subjective / HPI Gastrointestinal: as per Subjective / HPI Genitourinary: as per Subjective / HPI Physical Exam Constitutional: no acute distress Respiratory: no respiratory distress and no labored breathing Neurologic: awake Psychiatric: Orientation: alert and oriented x 3 Results & Data ([facility]) Vital Signs (Past 12 Hours) Vital Signs Temp Pulse Pulse Resp BP BP Pulse Ox 02/26/22 08:22 91 H 02/26/22 07:55 37.1 C 88 20 114/72 97 02/26/22 03:16 37.1 C 96 H 18 127/62 91 02/26/22 00:00 02/25/22 22:53 101 H 02/25/22 22:37 37.6 C H 100 H 20 128/73 93 O2 Del Method O2 Del Method 02/26/22 08:22 02/26/22 07:55 Room Air 02/26/22 03:16 Room Air 02/26/22 00:00 CPAP 02/25/22 22:53 02/25/22 22:37 CPAP PG Care Time/CCT Total # of Minutes Spent Total Time Spent with Patient: Total time spent is greater than 50% in coordination of care (as documented) at patient's floor/unit and/or counseling patient: Coding Level of Care Code 36700 Subseq Hosp Care Lvl 2 Diagnoses Right ureteral calculus N20.1 Sepsis A41.9
[2022-02-26] MEDS ORDERED: oxyCODONE HCL IR 5 MG TAB (IMMEDIATE RELEASE) PO PRN (10:56)
[2022-02-26] MEDS ORDERED: HYDROmorphone INJ 0.5 MG/0.5 ML SYR IV PRN (10:56)
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
[2022-02-26] MEDS: LIDOCAINE 5% 1 PATCH TD SCH (19:34)
[2022-02-26] MEDS: AMITRIPTYLINE HCL 50 MG TAB PO SCH (19:36)
[2022-02-26] MEDS: FAMOTIDINE 20 MG TAB PO SCH (19:37)
[2022-02-26] MEDS: hydrOXYzine HCl 25 MG TAB PO SCH (19:38)
[2022-02-26] MEDS: PRAZOSIN HCL 1 MG CAP PO SCH (19:39)
[2022-02-26] MEDS: oxyCODONE HCL IR 5 MG TAB (IMMEDIATE RELEASE) PO PRN (19:40)
[2022-02-26] MEDS: ACETAMINOPHEN 325 MG TAB PO PRN (23:21)
[2022-02-27 06:32] LABS: Hematocrit (blood only) 25.1 % (34.1-44.9); Hemoglobin 8.6 g/dl (12.0-16.0); Mean Corpuscular Hemoglobin 29.4 pg (25.0-34.0); Mean Corpuscular Hgb Conc 34.3 g/dL (32.0-36.0); Mean Corpuscular Volume 85.7 fL (80.0-100.0); Mean Platelet Volume 9.6 fL (9.4-12.3); Platelet Count 302 K/uL (130-400); RDW Coefficient of Variation 13.1 % (11.5-14.5); RDW Standard Deviation 40.3 fL (36.4-46.3); Red Blood Count 2.93 M/uL (3.93-5.22); White Blood Count 15.54 K/ul (4.8-10.8)
[2022-02-27] MEDS: HEPARIN SOD 5,000 UNIT/0.5 ML VIAL SQ SCH (06:38)
[2022-02-27] MEDS: oxyCODONE HCL IR 5 MG TAB (IMMEDIATE RELEASE) PO PRN (06:39)
[2022-02-27] MEDS: LEVOTHYROXINE SODIUM 50 MCG TABLET PO SCH (06:40)
[2022-02-27 06:55] LABS: BUN Creatinine Ratio 17.7 (10-20); Calcium 8.6 mg/dl (8.5-10.1); Creatinine Clr Calc Pharmacy 61.5 ml/min; Est GFR (African American) 59.1 ml/min; Magnesium 2.1 mg/dl (1.7-2.4); Phosphorus 4.1 mg/dl (2.5-4.9); Potassium 3.5 mmol/L (3.5-5.1)
[2022-02-27] MEDS: GABAPENTIN 300 MG CAP PO SCH ×2 (08:41→15:11)
[2022-02-27] MEDS: GABAPENTIN 800 MG TAB PO SCH ×2 (08:41→15:11)
[2022-02-27] MEDS: lamoTRIgine 100 MG TAB PO SCH (08:41)
[2022-02-27] MEDS: ADVANCED PROBIOTIC 1250 MG CAPSULE PO SCH (08:42)
[2022-02-27] MEDS: VITAMIN B COMPLEX TAB PO SCH (08:42)
[2022-02-27] MEDS: FERROUS SULFATE 325 MG TAB PO SCH (08:42)
[2022-02-27] MEDS: CETIRIZINE HCL 10 MG TABLET PO SCH (08:42)
[2022-02-27] MEDS: DOCUSATE SODIUM 100 MG CAP PO SCH (08:43)
[2022-02-27] MEDS: CYCLOBENZAPRINE HCL 10 MG TAB PO SCH (08:43)
[2022-02-27] MEDS: DULoxetine HCL 60 MG CAP PO SCH (08:43)
[2022-02-27] MEDS: TOPIRAMATE 100 MG TAB PO SCH (08:43)
[2022-02-27] MEDS: SENNA 8.6 MG TAB PO SCH (08:43)
[2022-02-27] MEDS: CYANOCOBALAMIN (B-12) 500 MCG TABLET PO SCH (08:44)
[2022-02-27] MEDS: INSULIN ASPART PER UNIT SC SCH ×3 (08:44→17:20)
[2022-02-27] MEDS: MAGNESIUM OXIDE 400 MG TAB PO SCH (08:44)
[2022-02-27] MEDS: FLUTICASONE/VILANTEROL 200/25MCG 14 PUFFS/INHALER INH SCH (08:45)
[2022-02-27] MEDS: cefTRIAXone SODIUM 2,000 MG in DEXTROSE 5% 50 ML IV SCH (08:48)
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
--- NOTE | 2022-02-27 13:03 | Urology Progress Note ---
Date of Service February 27, 2022 Assessment & Plan (1) Right ureteral calculus: (2) Sepsis: Plan 46 yo F admitted for urosepsis secondary to right distal ureteral stone. - Pt POD# 5 s/p emergent cystoscopy and right ureteral stent placement with Dr. Hayes. - Afebrile, hemodynamically stable, lab work reviewed - creatinine 1.24, Wbc 15.54 - Urine/Blood cultures 02/22 with E.coli; Repeat BCx 02/23 prelim E.coli, repeat BCx 02/25 NGTD. - Continues on IV Ceftriaxone based on culture data, continue to follow. - Voiding spontaneously, continue to monitor. Bladder scan prn. - Reports some mild hematuria and right flank pain, likely d/t ureteral stent. - Can consider addition of Flomax, Pyridium, Oxybutynin if no contraindications for stent management. - Will need course of antibiotics on discharge per final culture. - We discussed need for stone treatment in the future after acute infection has been treated. Will arrange outpatient follow-up. - Discussed with hospital team. - Urology will follow peripherally. Please contact us with any further questions, concerns, or changes in patient's status. Admission and Anticipated Discharge Date Admission Date: February 22, 2022 Subjective Patient examined at bedside this afternoon. Ambulating in room on arrival. No acute distress. Reports she still has right-sided flank pain, most bothersome with urination or when having a bowel movement. She does note significant pain last night, but pain medication helped and the pain has been manageable so far today. No fevers or chills. Denies nausea or vomiting. Notes some and intermittent blood in her urine and dysuria. Feels she is emptying her bladder well. Review of Systems Constitutional: as per Subjective / HPI Gastrointestinal: as per Subjective / HPI Genitourinary: as per Subjective / HPI Physical Exam Constitutional: no acute distress Respiratory: no respiratory distress and no labored breathing Neurologic: moves all extremities and awake Psychiatric: Orientation: alert and oriented x 3 Genitourinary: Urine was clear yellow in hat Results & Data ([facility]) Vital Signs (Past 12 Hours) Vital Signs Temp Pulse Resp BP BP Pulse Ox O2 Del Method 02/27/22 11:06 37.1 C 87 20 108/65 Room Air 02/27/22 07:01 36.7 C 78 19 123/58 L 95 Room Air 02/27/22 03:14 36.8 C 81 16 106/62 92 Room Air PG Care Time/CCT Total # of Minutes Spent Total Time Spent with Patient: Total time spent is greater than 50% in coordination of care (as documented) at patient's floor/unit and/or counseling patient: Coding Level of Care Code 66557 Subseq Hosp Care Lvl 2 Diagnoses Right ureteral calculus N20.1 Sepsis A41.9
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
== END 2022-02-27 19:17 | disposition home or self-care (01) | DRG 854 ==
LOC: ED 17:00 → 2E 21:47
DX: N13.6 Pyonephrosis; A41.51 Sepsis due to Escherichia coli [E. coli]; E03.9 Hypothyroidism, unspecified; K21.9 Gastro-esophageal reflux disease without esophagitis; G47.33 Obstructive sleep apnea (adult) (pediatric); Z86.16 Personal history of COVID-19; F31.81 Bipolar II disorder; J45.30 Mild persistent asthma, uncomplicated; R73.03 Prediabetes; Z68.38 Body mass index [BMI] 38.0-38.9, adult; I10 Essential (primary) hypertension; Z79.84 Long term (current) use of oral hypoglycemic drugs; E66.9 Obesity, unspecified; N39.0 Urinary tract infection, site not specified; Z79.890 Hormone replacement therapy; N17.9 Acute kidney failure, unspecified

== ENCOUNTER 2022-03-27 21:42 | Inpatient (IN) ==
[2022-03-27] MEDS ORDERED: ACETAMINOPHEN 1,000 MG/100 ML VIAL IV STA (22:05)
[2022-03-27] MEDS ORDERED: SODIUM CHLORIDE 0.9% 1000ML 1,000 ML IV ONE (22:05)
[2022-03-27 22:17] LABS: Basophils # (auto) 0.12 K/uL (0-0.2); Basophils % (auto) 0.7 %; Eosinophils # (auto) 0.52 K/uL (0-0.50); Hematocrit (blood only) 31.9 % (34.1-44.9); Hemoglobin 10.4 g/dl (12.0-16.0); Immature Granulocytes # (auto) 0.15 K/uL (0.00-0.02); Immature Granulocytes % (auto) 0.9 %; Lymphocytes # (auto) 2.82 K/uL (1.2-3.4); Mean Corpuscular Hemoglobin 29.4 pg (25.0-34.0); Mean Corpuscular Hgb Conc 32.6 g/dL (32.0-36.0); Mean Corpuscular Volume 90.1 fL (80.0-100.0); Mean Platelet Volume 8.7 fL (9.4-12.3); Monocytes # (auto) 1.47 K/uL (0.24-0.82); Monocytes % (auto) 8.4 %; Neutrophils # (auto) 12.51 K/uL (1.4-6.5); Platelet Count 408 K/uL (130-400); RDW Coefficient of Variation 13.8 % (11.5-14.5); RDW Standard Deviation 45.1 fL (36.4-46.3); Red Blood Count 3.54 M/uL (3.93-5.22); White Blood Count 17.59 K/ul (4.8-10.8)
[2022-03-27 22:28] LABS: iSTAT Creatinine 1.2 mg/dl (0.6-1.3); iSTAT Hemoglobin 10.5 g/dl (12.0-16.0); iSTAT Ionized Calcium 1.26 mmol/l (1.12-1.32); iSTAT Potassium 3.9 mmol/L (3.3-5.0)
[2022-03-27 22:32] LABS: Pregnancy Test, Serum Negative (Negative)
[2022-03-27] MEDS ORDERED: OPTIRAY 350 100ml IV ONE (22:36)
[2022-03-27 22:37] LABS: Albumin Globulin Ratio 1.1 (0.9-2); Albumin Level 3.8 gm/dl (3.4-5.0); BUN Creatinine Ratio 10.8 (10-20); Bilirubin,Total 0.4 mg/dl (0.2-1.0); Calcium 8.6 mg/dl (8.5-10.1); Creatinine Clr Calc Pharmacy 60.4 ml/min; Est GFR (African American) 61.5 ml/min; Globulin 3.6 gm/dl (2.5-4.0); Potassium 3.6 mmol/L (3.5-5.1); Total Protein 7.4 gm/dl (6.0-8.3)
[2022-03-27 22:52] LABS: Appearance Urine Cloudy (Clear); Bacteria Urine Automated 1+ (Negative); Bilirubin Urine Negative (Negative); Blood Urine 2+ (Negative); Color Urine Yellow; Epithelial Cell Urine Auto >30 /lpf (0-5); Glucose Urine UA Negative (Negative); Ketones Urine Negative (Negative); Leukocyte Esterase Urine 2+ (Negative); Nitrite Urine Positive (Negative); Protein Urine 1+ (Negative); RBC Urine Automated >30 /hpf (0-4); Specific Gravity Urine 1.019 (1.000-1.030); Urobilinogen Urine Negative (Negative); WBC Urine Automated >30 /hpf (0-5)
[2022-03-27] MEDS ORDERED: PIPERACILLIN/TAZOBACTAM 4.5 GM/120 ML BAG IV ONE (23:23)
[2022-03-27] MEDS ORDERED: fentaNYL citrate 100 MCG/2 ML VIAL IV STA (23:42)
--- NOTE | 2022-03-27 23:45 | Emergency Department Note ---
History of Present Illness General Chief complaint: Abdominal Pain Stated complaint: ABDOMINAL PAIN, KIDNEY STONE,DIARREAH Time Seen by Provider: 03/27/22 21:57 History of Present Illness Maximum Pain Intensity: 9 This 47-year-old with a right ureteral stent presents to the ER complaining of right lower quadrant abdominal pain with urinary symptoms Location: Right lower quadrant Quality: Painful Severity: Moderate Duration: Today Timing: Today Context: Patient was concerned and came in Modifying factors: better with rest; worse with palpation Patient denies chest pain, dyspnea, fevers, vomiting, diarrhea. Home Medications Medication Instructions Recorded Confirmed Type cyclobenzaprine 10 mg tablet 10 mg PO AMHS 01/10/18 03/28/22 History docusate sodium 100 mg capsule 100 mg PO QAM 01/10/18 03/28/22 History (Colace) epinephrine 0.3 mg/0.3 mL 0.3 mg IM DIRECTED PRN Severe 01/10/18 03/28/22 History injection, auto-injector (EpiPen) Allergic Reaction ferrous sulfate 325 mg (65 mg 325 mg PO QAM 01/10/18 03/28/22 History iron) tablet (Feosol) fluticasone furoate 200 1 inh inhalation QAM 01/10/18 03/28/22 History mcg-vilanterol 25 mcg/dose inhalation powder (Breo Ellipta) fluticasone propionate 50 2 spray intranasal DAILY PRN 01/10/18 03/28/22 History mcg/actuation nasal Allergy Symptoms spray,suspension (Flonase Allergy Relief) gabapentin 800 mg tablet 800 mg PO TID 01/10/18 03/28/22 History levothyroxine 50 mcg tablet 50 mcg PO DAILYBB 01/10/18 03/28/22 History pantoprazole 40 mg tablet,delayed 40 mg PO QAM 01/10/18 03/28/22 History release (Protonix) rizatriptan 10 mg tablet (Maxalt) 10 mg PO DIRECTED PRN Migraine 01/10/18 03/28/22 History Headache topiramate 200 mg tablet (Topamax) 200 mg PO AMHS 05/25/18 03/28/22 History prazosin 2 mg capsule (Minipress) 4 mg PO HS 06/19/18 03/28/22 History cetirizine 10 mg tablet (Zyrtec) 10 mg PO QAM 09/20/18 03/28/22 History Lactobacillus comb 1 cap PO QAM 10/14/18 03/28/22 History no.6-IQB-ajbkyjvbat 300 million cell-250 mg capsule (Probiotic and Acidophilus) hydroxyzine pamoate 50 mg capsule 50 mg PO HS 10/14/18 03/28/22 History (Vistaril) onabotulinumtoxinA 200 unit 0 unit IM .Q12 WEEKS 10/14/18 03/28/22 History solution for injection (Botox) magnesium oxide 400 mg PO QAM 04/07/19 03/28/22 History gabapentin 300 mg capsule 300 mg PO TID 08/08/19 03/28/22 History (Neurontin) lamotrigine 200 mg tablet 200 mg PO QAM 08/08/19 03/28/22 History (Lamictal) ondansetron 4 mg disintegrating 4 mg PO Q8H PRN Nausea 08/08/19 03/28/22 History tablet cranberry 500 mg capsule 500 mg PO QAM 02/14/20 03/28/22 History cyanocobalamin (vitamin B-12) 1,000 mcg PO QAM 02/14/20 03/28/22 History 1,000 mcg tablet (Vitamin B-12) norethindrone 1.5 mg-ethinyl 1 tab PO QAM 02/14/20 03/28/22 History estradiol 30 mcg(21)/iron 75 mg(7) tablet (Junel FE 1.5/30 (28)) lisinopril 5 mg tablet 5 mg PO QAM 09/15/20 03/28/22 History duloxetine 60 mg capsule,delayed 60 mg PO QAM 03/04/21 03/28/22 History release dicyclomine 20 mg tablet 20 mg PO BID 10/28/21 03/28/22 History famotidine 20 mg tablet 20 mg PO HS 10/28/21 03/28/22 History metformin 500 mg tablet,extended 500 mg PO QDD 10/28/21 03/28/22 History release 24 hr lidocaine 5 % topical patch 1 patch transdermal QAM PRN pain 11/01/21 03/28/22 Rx #15 ea amitriptyline 50 mg tablet 50 mg PO HS 02/22/22 03/28/22 History lorazepam 0.5 mg tablet (Ativan) 0.5 mg PO TID PRN Anxiety 02/22/22 03/28/22 History vitamin B complex 1 tab PO DAILY 02/22/22 03/28/22 History lidocaine 5 % topical patch 1 patch transdermal Q24H PRN pain 02/27/22 03/28/22 Rx #15 ea oxycodone 5 mg tablet 5 mg PO Q6 PRN severe pain (scale 02/27/22 03/28/22 Rx score 7-10) #10 tabs phenazopyridine 100 mg tablet 100 mg PO TID PRN uinary pain #20 02/27/22 03/28/22 Rx (Pyridium) tabs sennosides 8.6 mg tablet (Senokot) 17.2 mg PO QAM PRN constipation 02/27/22 03/28/22 Rx #30 tabs tamsulosin 0.4 mg capsule 0.4 mg PO DAILY #10 caps 02/27/22 03/28/22 Rx albuterol sulfate 90 mcg/actuation 1 inh inhalation QID PRN Wheezing 03/26/22 03/28/22 History aerosol inhaler albuterol sulfate 2.5 mg/3 mL 2.5 mg continuous nebulization Q4 03/28/22 03/28/22 History (0.083 %) solution for nebulization PRN Shortness Of Breath Or Wheezing Allergies Allergy/AdvReac Type Severity Reaction Status Date / Time bee venom protein (honey bee) Allergy Severe ANAPHYLAXIS Verified 03/27/22 23:52 morphine AdvReac Intermediate HALLUCINATI Verified 03/27/22 23:52 ONS Past Med/Surg History Medical History Anemia Anxiety Asthma USES PRN INH APPROX 1-2 X MONTHLY; DENIES RECENT EXAC Bipolar 1 disorder Chest pain follows with S cardio records, atypical, attributed to GI etiology and anxiety Closed head injury R/T FALL IN 2017; REPORTS CONCUSSION COVID-19 07/25/20 > not hospitalized Depression with suicidal ideation E. coli septicemia Fibroadenoma of breast RT Fibromyalgia Gastroparesis GERD (gastroesophageal reflux disease) Hx of prolonged Q-T interval on ECG PER PT'S MEDICAL RECORD FROM PCP OFFICE. Hx of sepsis hospitalized at [facility] Feb 2022 for this > resolved per pt Hypothyroidism Irregular menses Kidney stone Migraine Obesity PCO (polycystic ovaries) Peripheral neuropathy Poor historian Prediabetes PTSD (post-traumatic stress disorder) Pyelonephritis Recurrent UTI Sleep apnea NO CPAP Surgical History H/O lithotripsy History of ankle surgery RT History of breast biopsy RT History of cystoscopy History of esophagogastroduodenoscopy (EGD) Hx of cholecystectomy Hx of colonoscopy Hx of knee surgery RT Status post labral repair of shoulder RT Family History Father Heart disease Other No significant family history Social History Smoking Status: Never smoker Second Hand Exposure: No; Hx Alcohol Use: No Hx Substance Use: No Preferred Language: Kazakh Communication Ability: Effective Media Planner / Buyer Required: No Beliefs That Will Affect Care: None marital status: Single Current Living Situation: Family Current Living Situation Comment: lives w/ mom. disabled. no drivers license current occupational status: disabled Feels Safe at Home: Yes Assistive Devices: Glasses and Hearing Aid - Bilateral Review of Systems A total of 10 systems reviewed and were otherwise negative Physical Exam Vital Signs Vital Signs - 24 hr 03/27/22 21:50 03/27/22 22:05 03/27/22 22:05 Temperature 36.7 C Temperature Source Temporal Artery Scan Pulse Rate 101 H Pulse Rate [Apical] 93 H Pulse Rhythm [Apical] Regular Pulse Strength [Apical] Normal Respiratory Rate 18 18 Respiratory Effort / Characteristics Non-Labored Respiratory Depth Normal Respiratory Pattern Regular Blood Pressure 109/63 Blood Pressure [Right Arm] 130/67 Blood Pressure Mean 78 Blood Pressure Mean [Right Arm] 88 Blood Pressure Position [Right Arm] Lying Pulse Oximetry 98 98 98 Oxygen Delivery Method Room Air Room Air Room Air Sepsis Recent Fever Within 48 Hours No Sepsis New/Unexplained Change in Mental Status N/A Sepsis Action Taken by Nursing No Action Required 03/28/22 00:00 Temperature Temperature Source Pulse Rate Pulse Rate [Apical] 84 Pulse Rhythm [Apical] Regular Pulse Strength [Apical] Normal Respiratory Rate 18 Respiratory Effort / Characteristics Non-Labored Respiratory Depth Normal Respiratory Pattern Regular Blood Pressure Blood Pressure [Right Arm] 118/76 Blood Pressure Mean Blood Pressure Mean [Right Arm] 90 Blood Pressure Position [Right Arm] Sitting Pulse Oximetry 95 Oxygen Delivery Method Room Air Sepsis Recent Fever Within 48 Hours Sepsis New/Unexplained Change in Mental Status Sepsis Action Taken by Nursing VITALS: Vitals are noted on the nurse's note and reviewed by myself. Vital signs stable. GENERAL: Pleasant female, in no acute distress, nondiaphoretic, well-developed well-nourished. SKIN: The skin was without rashes, erythema, edema, or bruising. There is no tenting of the skin. Capillary reflex less than 2 seconds. HEAD: Normocephalic atraumatic. EARS: External auditory canals clear, EYES: Pupils equal round and reactive to light and accommodation. Conjunctivae without injection, sclerae without icterus. Extraocular movements intact. NOSE: Patent, turbinates without inflammation or discharge. MOUTH: Mucous membranes moist. Pharynx without erythema or exudate. Uvula mid line. Airway patent. Tongue does not deviate. NECK: Supple without nuchal rigidity. No lymphadenopathy. No thyromegaly. Cervical spine is nontender. No JVD. HEART: Regular rate and rhythm LUNGS: Clear to auscultation bilaterally without wheezes, rales or rhonchi. No retractions or accessory muscle use. ABDOMEN: Positive bowel sounds x 4. Normal tympanic percussion. Soft, tender to palpation right lower quadrant, without masses or organomegaly. Hankins sign negative. No guarding or rebound tenderness. No CVA tenderness MUSCULOSKELETAL: No muscle atrophy, erythema, or edema noted. NEURO: Patient was alert and oriented to person place and time. Normal sensation to light and sharp touch. No focal neurological deficits. Course Administered Medications Discontinued Medications Fentanyl Citrate (Fentanyl Citrate 100 Mcg/2 Ml Vial) 50 mcg IV NOW STA Stop: 03/27/22 23:43 Last Admin: 03/27/22 23:50 Dose: 50 mcg Documented By: YIN Sodium Chloride (Nss 1000ml) 1,000 mls @ 999 mls/hr IV .Q1H1M ONE Stop: 03/27/22 23:05 Last Infusion: 03/27/22 23:45 Dose: 0 mls/hr Documented By: Admin: 03/27/22 22:10 Dose: 999 mls/hr Documented By: YIN Acetaminophen (Ofirmev) 1,000 mg in 100 mls @ 400 mls/hr IV NOW STA Stop: 03/27/22 22:19 Last Infusion: 03/27/22 22:25 Dose: 0 mls/hr Documented By: Admin: 03/27/22 22:11 Dose: 400 mls/hr Documented By: YIN Piperacillin Sod/Tazobactam Sod (Zosyn) 4.5 gm in 120 mls @ 240 mls/hr IV NOW ONE Stop: 03/27/22 23:52 Last Infusion: 03/28/22 00:22 Dose: 0 mls/hr Documented By: Admin: 03/27/22 23:51 Dose: 240 mls/hr Documented By: YIN Ioversol (Optiray 350 100ml) 100 ml IV ONCE ONE Stop: 03/27/22 22:37 Last Admin: 03/27/22 22:37 Dose: 85 ml Documented By: BARRERA Medical Decision Making Medical Records Attestation: I reviewed the patient's medical records. Home Medications Current Medication List: was personally reviewed by me Laboratory Data Attestation: I reviewed the patient's lab results. Result diagrams: 03/27/22 20:08 03/27/22 20:08 Lab Results 03/27/22 03/27/22 03/27/22 Range/Units 20:08 20:08 20:08 WBC 17.59 H (4.8-10.8) K/ul RBC 3.54 L (3.93-5.22) M/uL Hgb 10.4 L (12.0-16.0) g/dl POC Hgb (12.0-16.0) g/dl Hct 31.9 L (34.1-44.9) % POC Hct (37-47) % MCV 90.1 (80.0-100.0) fL MCH 29.4 (25.0-34.0) pg MCHC 32.6 (32.0-36.0) g/dL RDW Std Deviation 45.1 (36.4-46.3) fL RDW Coeff of Kailee 13.8 (11.5-14.5) % Plt Count 408 H (130-400) K/uL MPV 8.7 L (9.4-12.3) fL Immature Gran % (Auto) 0.9 % Neut % (Auto) 71.0 % Lymph % (Auto) 16.0 % [place] % (Auto) 8.4 % Eos % (Auto) 3.0 % Baso % (Auto) 0.7 % Neut # (Auto) 12.51 H (1.4-6.5) K/uL Lymph # (Auto) 2.82 (1.2-3.4) K/uL [place] # (Auto) 1.47 H (0.24-0.82) K/uL Eos # (Auto) 0.52 H (0-0.50) K/uL Baso # (Auto) 0.12 (0-0.2) K/uL Immature Gran # (Auto) 0.15 H (0.00-0.02) K/uL POC Sodium (135-144) mmol/L Sodium 135 L (136-145) mmol/L POC Potassium (3.3-5.0) mmol/L Potassium 3.6 (3.5-5.1) mmol/L POC Chloride (101-112) mmol/L Chloride 114 H (98-107) mmol/L Carbon Dioxide 20 L (21-32) mmol/L POC Total CO2 (24-31) mmol/L Anion Gap 1 L (3-11) POC Anion Gap (16-25) mmol/L POC BUN (7-18) mg/dl BUN 13 (6-23) mg/dl Creatinine 1.20 (0.6-1.2) mg/dl POC Creatinine (0.6-1.3) mg/dl Est Cr Clr Drug Dosing 60.4 ml/min Est GFR ( Amer) 61.5 ml/min Est GFR (Non-Af Amer) 53.0 ml/min BUN/Creatinine Ratio 10.8 (10-20) Glucose 90 (70-99(Fasting)) mg/dl POC Glucose (other) (70-99) mg/dl Calcium 8.6 (8.5-10.1) mg/dl POC Ioniz Calcium Panfilo (1.12-1.32) mmol/l Total Bilirubin 0.4 (0.2-1.0) mg/dl AST 29 (13-39) U/L ALT 45 (7-52) U/L Alkaline Phosphatase 73 (34-104) U/L Total Protein 7.4 (6.0-8.3) gm/dl Albumin 3.8 (3.4-5.0) gm/dl Globulin 3.6 (2.5-4.0) gm/dl Albumin/Globulin Ratio 1.1 (0.9-2) Lipase 46 (11-82) U/L HCG, Qual Negative (Negative) Urine Color Urine Appearance (Clear) Urine pH (4.5-7.5) Ur Specific [place] (1.000-1.030) Urine Protein (Negative) Urine Glucose (UA) (Negative) Urine Ketones (Negative) Urine Blood (Negative) Urine Nitrite (Negative) Urine Bilirubin (Negative) Urine Urobilinogen (Negative) Ur Leukocyte Esterase (Negative) Urine WBC (Auto) (0-5) /hpf Urine RBC (Auto) (0-4) /hpf U Hyaline Cast (Auto) (0-5) /lpf U Epithel Cells (Auto) (0-5) /lpf Urine Bacteria (Auto) (Negative) Urine Mucus (None Prsent) Urine Yeast SARS-CoV-2, RNA, NAAT (NEGATIVE) 03/27/22 03/27/22 03/27/22 Range/Units 22:16 22:41 23:49 WBC (4.8-10.8) K/ul RBC (3.93-5.22) M/uL Hgb (12.0-16.0) g/dl POC Hgb 10.5 L (12.0-16.0) g/dl Hct (34.1-44.9) % POC Hct 31 L (37-47) % MCV (80.0-100.0) fL MCH (25.0-34.0) pg MCHC (32.0-36.0) g/dL RDW Std Deviation (36.4-46.3) fL RDW Coeff of Kailee (11.5-14.5) % Plt Count (130-400) K/uL MPV (9.4-12.3) fL Immature Gran % (Auto) % Neut % (Auto) % Lymph % (Auto) % [place] % (Auto) % Eos % (Auto) % Baso % (Auto) % Neut # (Auto) (1.4-6.5) K/uL Lymph # (Auto) (1.2-3.4) K/uL [place] # (Auto) (0.24-0.82) K/uL Eos # (Auto) (0-0.50) K/uL Baso # (Auto) (0-0.2) K/uL Immature Gran # (Auto) (0.00-0.02) K/uL POC Sodium 141 (135-144) mmol/L Sodium (136-145) mmol/L POC Potassium 3.9 (3.3-5.0) mmol/L Potassium (3.5-5.1) mmol/L POC Chloride 110 (101-112) mmol/L Chloride (98-107) mmol/L Carbon Dioxide (21-32) mmol/L POC Total CO2 19 L (24-31) mmol/L Anion Gap (3-11) POC Anion Gap 17.0 (16-25) mmol/L POC BUN 12 (7-18) mg/dl BUN (6-23) mg/dl Creatinine (0.6-1.2) mg/dl POC Creatinine 1.2 (0.6-1.3) mg/dl Est Cr Clr Drug Dosing ml/min Est GFR ( Amer) ml/min Est GFR (Non-Af Amer) ml/min BUN/Creatinine Ratio (10-20) Glucose (70-99(Fasting)) mg/dl POC Glucose (other) 95 (70-99) mg/dl Calcium (8.5-10.1) mg/dl POC Ioniz Calcium Panfilo 1.26 (1.12-1.32) mmol/l Total Bilirubin (0.2-1.0) mg/dl AST (13-39) U/L ALT (7-52) U/L Alkaline Phosphatase (34-104) U/L Total Protein (6.0-8.3) gm/dl Albumin (3.4-5.0) gm/dl Globulin (2.5-4.0) gm/dl Albumin/Globulin Ratio (0.9-2) Lipase (11-82) U/L HCG, Qual (Negative) Urine Color Yellow Urine Appearance Cloudy A (Clear) Urine pH 7.0 (4.5-7.5) Ur Specific [place] 1.019 (1.000-1.030) Urine Protein 1+ H (Negative) Urine Glucose (UA) Negative (Negative) Urine Ketones Negative (Negative) Urine Blood 2+ H (Negative) Urine Nitrite Positive A (Negative) Urine Bilirubin Negative (Negative) Urine Urobilinogen Negative (Negative) Ur Leukocyte Esterase 2+ H (Negative) Urine WBC (Auto) >30 H (0-5) /hpf Urine RBC (Auto) >30 H (0-4) /hpf U Hyaline Cast (Auto) 0 (0-5) /lpf U Epithel Cells (Auto) >30 H (0-5) /lpf Urine Bacteria (Auto) 1+ H (Negative) Urine Mucus Present A (None Prsent) Urine Yeast Not Reportable SARS-CoV-2, RNA, NAAT NEGATIVE (NEGATIVE) Imaging Data Attestation: I personally reviewed and interpreted this imaging study as follows: MDM Narrative Prior records/ancillary studies reviewed. Triage Nursing notes reviewed. Additional history obtained from nursing. The patient's history was concerning for abdominal pain. Differential diagnosis: Etiologies such as appendicitis, diverticulitis, PUD, biliary pathology, UTI, pancreatitis, obstruction, mesenteric ischemia, aortic pathology, infections, inflammatory bowel disease, renal colic, as well as others were entertained. Physical examination findings: As above. ER treatment provided: An order was placed for continuous cardiac monitoring. The monitor shows a rate of 60-1 50 with a sinus rhythm. IV fluids Tylenol fentanyl Zosyn On reassessment the patient felt better. Diagnostics interpreted by me: The labs revealed urine concerning for infection and sent for culture. [place] [address] / Director: Dennis eKlly M.D. Clinical Laboratory Report L Name: DONALD RAMIREZ Acct: [id number] Status: DIS IN : 1975 [facility] [place]: 02/22/22 Age: 47 Sex: F Dis Date: 02/27/22 Loc: ICU Medical [address] [place] [address]/Bed: E2031 Spec: [id number] Collected: 02/22/22 Received: 02/22/[address]: Hardeep Hayes, II, DO Source: Urine,Random OV Order: Ordered: Urine Culture Comments: Comment Urine from cystoscopy Procedure Result Verified Site Urine Culture Final 02/25/22 Organism 1 Escherichia coli [place] Count >100,000 CFU/ml Sens Sensitivities to Follow E coli RX M.I.C. --- --------- Amox/Clav S <=8/4 Ampicillin R >16 Amp/Sul I 16/8 Cefazolin S 4 Cefepime S <=2 Ceftriaxone S <=1 Ciprofloxacin S <=0.25 Ertapenem S <=0.5 Gentamicin R >8 Levofloxacin S <=0.5 Meropenem S <=1 Nitrofurantoin S <=32 Tobramycin I 8 Trimeth/Sulfa R >38 Pip/Tazo S <=16 S = SENSITIVE I = INTERMEDIATE R = RESISTANT Leukocytosis, blood cultures ordered Imaging studies: CT ABDOMEN & PELVIS With Contrast: Right-sided nephroureteral stent in place with minimal fullness of the right renal collecting system. Heterogeneous delayed right renal nephrogram noted which may reflect mild obstructive uropathy or pyelonephritis. Clinical correlation recommended to assess for infection and for functioning of the stent. Normal appendix The colon is to a large extent nondistended prominently distally. Wall thickening likely reflects underdistended state Radiologist: Lawrence Jones MD Consultation: A consultation was placed with the hospitalist. The case was discussed and diagnostics were reviewed. The patient was evaluated in the ER for further treatment. Exam and history seem consistent with pyelonephritis was a stent in place. Medicine is consulted. She will be evaluated for admission. Prior urine cultur e was reviewed. She is given IV antibiotics. Elevated white count. Urine concerning for infection.By the evaluation outlined above emergent etiologies such as appendicitis, diverticulitis, PUD, biliary pathology, pancreatitis, obstruction, mesenteric ischemia, aortic pathology, inflammatory bowel disease, renal colic, as well as others were deemed relatively unlikely. The pt informed about the findings as listed above. All questions were answered and pleased with the treatment. The chart was completed utilizing [employer] Speech voice recognition software. Grammatical errors, random word insertions, pronoun errors, and incomplete sentences are an occassional consequence of this system due to software limitations, ambient noise, and hardware issues. Any formal questions or meena rns about the content, text, or information contained within the body of this dictation should be directly addressed to the physician warehouse assistant for clarification. Impression & Plan Pyelonephritis Discharge Plan Visit Data Chief Complaint: Abdominal Pain Stated Complaint: ABDOMINAL PAIN, KIDNEY STONE,DIARREAH ED Provider: Mike Diallo ED Midlevel Provider: Chantel Ramirez Discharge Problem: Pyelonephritis Patient Disposition: Admitted As Inpatient Condition: Good Forms Stand Alone Forms: My [facility] Prescriptions Prescriptions: No Action cyclobenzaprine 10 mg Tablet 10 mg PO AMHS rizatriptan [Maxalt] 10 mg Tablet 10 mg PO DIRECTED MDD 30 MG/24 HOURS PRN (Reason: Migraine Headache) Rx Instructions: TAKE ONE TABLET AT ONSET OF MIGRAINE HEADACHE, MAY REPEAT DOSE EVERY TWO HOURS IF NEEDED. MAXIMUM 3 TABLETS/24 HOURS gabapentin 800 mg Tablet 800 mg PO TID Rx Instructions: TOTAL DOSE 1100 MG--TAKE WITH ONE 300 MG TABLET levothyroxine 50 mcg Tablet 50 mcg PO DAILYBB Rx Instructions: TAKE THIS MEDICATION AT LEAST 30 MINUTES BEFORE BREAKFAST OR ANY OTHER MEDICATIONS pantoprazole [Protonix] 40 mg Tablet,Delayed Release (Dr/Ec) 40 mg PO QAM ferrous sulfate [Feosol] 325 mg (65 mg iron) Tablet 325 mg PO QAM docusate sodium [Colace] 100 mg Capsule 100 mg PO QAM epinephrine [EpiPen] 0.3 mg/0.3 mL Auto-Injector 0.3 mg IM DIRECTED PRN (Reason: Severe Allergic Reaction) fluticasone propionate [Flonase Allergy Relief] 50 mcg/actuation [place],Suspension 2 spray INTRANASAL DAILY PRN (Reason: Allergy Symptoms) fluticasone furoate-vilanterol [Breo Ellipta] 200-25 mcg/dose Blister With Device 1 inh INHALATION QAM Label Comments: pt has with her topiramate [Topamax] 200 mg Tablet 200 mg PO AMHS prazosin [Minipress] 2 mg capsule 4 mg PO HS cetirizine [Zyrtec] 10 mg Tablet 10 mg PO QAM hydroxyzine pamoate [Vistaril] 50 mg capsule 50 mg PO HS Botox 200 unit Recon Soln 0 unit IM .Q12 WEEKS Label Comments: next dose is in October Rx Instructions: DIVIDED OVER 31 SITES Probiotic and Acidophilus 300-250 million cell-mg Capsule 1 cap PO QAM magnesium oxide 400 mg magnesium Tablet 400 mg PO QAM lamotrigine [Lamictal] 200 mg tablet 200 mg PO QAM gabapentin [Neurontin] 300 mg capsule 300 mg PO TID Rx Instructions: TOTAL DOSE 1100 MG--TAKE WITH ONE 800 MG TABLET ondansetron 4 mg Tablet,Disintegrating 4 mg PO Q8H PRN (Reason: Nausea) cranberry 500 mg Capsule 500 mg PO QAM norethindrone-e.estradiol-iron [Junel FE 1.5/30 (28)] 1.5 mg-30 mcg (21)/75 mg (7) tablet 1 tab PO QAM cyanocobalamin (vitamin B-12) [Vitamin B-12] 1,000 mcg Tablet 1,000 mcg PO QAM lisinopril 5 mg tablet 5 mg PO QAM duloxetine 60 mg capsule,delayed release(DR/EC) 60 mg PO QAM albuterol sulfate 90 mcg/actuation Hfa Aerosol Inhaler 1 inh INHALATION QID PRN (Reason: Wheezing) dicyclomine 20 mg tablet 20 mg PO BID famotidine 20 mg tablet 20 mg PO HS metformin 500 mg tablet extended release 24 hr 500 mg PO QDD lidocaine 5 % Adhesive Patch,Medicated 1 patch transdermal QAM PRN (Reason: pain) Qty: 15 0RF amitriptyline 50 mg tablet 50 mg PO HS lorazepam [Ativan] 0.5 mg Tablet 0.5 mg PO TID PRN (Reason: Anxiety) vitamin B complex Tablet 1 tab PO DAILY sennosides [Senokot] 8.6 mg Tablet 17.2 mg PO QAM PRN (Reason: constipation) Qty: 30 0RF oxycodone 5 mg Tablet 5 mg PO Q6 PRN (Reason: severe pain (scale score 7-10)) Qty: 10 0RF lidocaine 5 % Adhesive Patch,Medicated 1 patch transdermal Q24H PRN (Reason: pain) Qty: 15 0RF phenazopyridine [Pyridium] 100 mg tablet 100 mg PO TID PRN (Reason: uinary pain) Qty: 20 0RF tamsulosin 0.4 mg capsule 0.4 mg PO DAILY Qty: 10 0RF albuterol sulfate 2.5 mg /3 mL (0.083 %) solution for nebulization 2.5 mg continuous nebulization Q4 PRN (Reason: Shortness Of Breath Or Wheezing) Referrals Referrals: Dennis Khan MD [Primary Care Provider] -
[2022-03-28 00:29] LABS: Mucus Urine Present (None Prsent)
[2022-03-28 00:32] LABS: Cast Urine Automated 0 /lpf (0-5)
--- NOTE | 2022-03-28 01:50 | Urology Consultation ---
Date of Consultation March 28, 2022 Assessment & Plan (1) Pyelonephritis: Patient has been admitted on the hospitalist service. From a urology perspective we recommend proceeding as follows: Provide analgesics provide antiemetics Provide IV fluid for hydration Implement n.p.o. status Continue broad-spectrum antibiotics. As noted the patient is already received Zosyn in the emergency department. I feel this is a good choice for antibiotic as the previously noted organisms on her blood and urine cultures during her previous admission were sensitive to this organism. Blood and urine cultures have been sent. These cultures can be followed and antibiotics can be tailored based on these results Follow serial labs We will keep the patient n.p.o. as noted above is the patient may require procedural intervention in the morning which may consist of removal of patient's ureteral stent or stent exchange. This will be determined upon evaluation in the morning. At the present time the patient does have a leukocytosis but she does not have acute kidney injury. In addition she is normotensive and not tachycardic and has been afebrile since her admission and presentation to the emergency department therefore not feel an emergent procedure is required at this time and can be pursued electively tomorrow. Additional recommendations will be forthcoming based on her clinical course as it unfolds History of Present Illness Reason for Consultation: Pyelonephritis with right ureteral stent. History of Present Illness This is a 47-year-old female who is known to [facility] physician [facility] urology. The patient was admitted to [facility] from 02/22/2022 through 02/27/2022. At that time the patient was noted to be septic from an infected right-sided kidney stone and patient underwent an emergent cystoscopy by Dr. Hayes on 02/22/2022. A ureteral stent was placed at that time. At the time of that admission patient was noted to be hypotensive and tachycardic with a blood white blood cell count of 27,000. Patient was initially treated with antibiotics in the form of Zosyn. She did have blood and urine cultures checked at time of admission which grew E. coli which was sensitive to Zosyn, cephalosporins, meropenem, and quinolones. Due to the culture sensitivities the patient had her antibiotics de-escalated to Rocephin during that admission and she was ultimately discharged home to complete a 14- day course of antibiotics in the form of oral ciprofloxacin. Patient notes that she did complete the course of antibiotics as prescribed and believes that her antibiotics concluded on 03/08/2022. Patient notes that she has followed up with Dr. Hayes as an outpatient and she was scheduled to have lithotripsy on 03/29/2022. It is noteworthy to mention that from her aforementioned admission she did have repeat blood cultures checked on 02/25/2022 which were negative for bacterial growth. She is also since had a urine culture checked on 03/20/2022 which was also negative for growth. The patient presented to [facility] emergency department last night as she has had ongoing abdominal pain for approximately 2 weeks that she was felt was related to her ureteral stent. She notes that the pain is gotten more severe over the past several days so she came to the emergency department. She notes that the pain in addition to being in her abdomen is also noted in her right flank. She specifically denies any nausea or vomiting. She specifically denies any fevers or chills. The patient does note some intermittent dysuria. In addition she has had diarrhea for approximately 1.5 weeks. Since arrival to the emergency department the patient has had labs and imaging which I independent reviewed. She did undergo a CT scan of the abdomen and pelvis that showed patient had a right-sided nephroureteral stent in place with minimal fullness of the right renal collecting system. As there was a het erogeneous delayed right renal nephrogram noted this was felt to represent either mild obstructive uropathy or pyelonephritis. Labs include a CBC her white blood cell count was elevated at 17.5. Hemoglobin and hematocrit were 10.4 and 31.9. Platelet count was noted to be 408,000. Chemistry profile showed sodium was 135 with a normal potassium. BUN and creatinine were both within the normal range and not elevated. There is no significant elevation of patient's LFTs or lipase. test was negative. A urinalysis was positive for nitrites. She also was noted to have 2+ leukocyte Estrace and greater than 30 white blood cells per high-power field. There is 1+ bacteria noted on the study. A COVID test was performed and was noted to be negative. Since arrival to the emergency department the patient has had blood and urine cultures sent. She has received antibiotics in the form of Zosyn and has received 1 L of normal saline solution. At the time of my interview the patient was noted to be afebrile and normotensive. She was not tachycardic. She was not in any distress. Allergies Allergy/AdvReac Type Severity Reaction Status Date / Time bee venom protein (honey bee) Allergy Severe ANAPHYLAXIS Verified 03/27/22 23:52 morphine AdvReac Intermediate HALLUCINATI Verified 03/27/22 23:52 ONS Home Medications Medication Instructions Recorded Confirmed Type cyclobenzaprine 10 mg tablet 10 mg PO AMHS 01/10/18 03/28/22 History docusate sodium 100 mg capsule 100 mg PO QAM 01/10/18 03/28/22 History (Colace) epinephrine 0.3 mg/0.3 mL 0.3 mg IM DIRECTED PRN Severe 01/10/18 03/28/22 History injection, auto-injector (EpiPen) Allergic Reaction ferrous sulfate 325 mg (65 mg 325 mg PO QAM 01/10/18 03/28/22 History iron) tablet (Feosol) fluticasone furoate 200 1 inh inhalation QAM 01/10/18 03/28/22 History mcg-vilanterol 25 mcg/dose inhalation powder (Breo Ellipta) fluticasone propionate 50 2 spray intranasal DAILY PRN 01/10/18 03/28/22 History mcg/actuation nasal Allergy Symptoms spray,suspension (Flonase Allergy Relief) gabapentin 800 mg tablet 800 mg PO TID 01/10/18 03/28/22 History levothyroxine 50 mcg tablet 50 mcg PO DAILYBB 01/10/18 03/28/22 History pantoprazole 40 mg tablet,delayed 40 mg PO QAM 01/10/18 03/28/22 History release (Protonix) rizatriptan 10 mg tablet (Maxalt) 10 mg PO DIRECTED PRN Migraine 01/10/18 03/28/22 History Headache topiramate 200 mg tablet (Topamax) 200 mg PO AMHS 05/25/18 03/28/22 History prazosin 2 mg capsule (Minipress) 4 mg PO HS 06/19/18 03/28/22 History cetirizine 10 mg tablet (Zyrtec) 10 mg PO QAM 09/20/18 03/28/22 History Lactobacillus comb 1 cap PO QAM 10/14/18 03/28/22 History no.5-NUK-irymbhpsgv 300 million cell-250 mg capsule (Probiotic and Acidophilus) hydroxyzine pamoate 50 mg capsule 50 mg PO HS 10/14/18 03/28/22 History (Vistaril) onabotulinumtoxinA 200 unit 0 unit IM .Q12 WEEKS 10/14/18 03/28/22 History solution for injection (Botox) magnesium oxide 400 mg PO QAM 04/07/19 03/28/22 History gabapentin 300 mg capsule 300 mg PO TID 08/08/19 03/28/22 History (Neurontin) lamotrigine 200 mg tablet 200 mg PO QAM 08/08/19 03/28/22 History (Lamictal) ondansetron 4 mg disintegrating 4 mg PO Q8H PRN Nausea 08/08/19 03/28/22 History tablet cranberry 500 mg capsule 500 mg PO QAM 02/14/20 03/28/22 History cyanocobalamin (vitamin B-12) 1,000 mcg PO QAM 02/14/20 03/28/22 History 1,000 mcg tablet (Vitamin B-12) norethindrone 1.5 mg-ethinyl 1 tab PO QAM 02/14/20 03/28/22 History estradiol 30 mcg(21)/iron 75 mg(7) tablet (Junel FE 1.5/30 (28)) lisinopril 5 mg tablet 5 mg PO QAM 09/15/20 03/28/22 History duloxetine 60 mg capsule,delayed 60 mg PO QAM 03/04/21 03/28/22 History release dicyclomine 20 mg tablet 20 mg PO BID 10/28/21 03/28/22 History famotidine 20 mg tablet 20 mg PO HS 10/28/21 03/28/22 History metformin 500 mg tablet,extended 500 mg PO QDD 10/28/21 03/28/22 History release 24 hr lidocaine 5 % topical patch 1 patch transdermal QAM PRN pain 11/01/21 03/28/22 Rx #15 ea amitriptyline 50 mg tablet 50 mg PO HS 02/22/22 03/28/22 History lorazepam 0.5 mg tablet (Ativan) 0.5 mg PO TID PRN Anxiety 02/22/22 03/28/22 History vitamin B complex 1 tab PO DAILY 02/22/22 03/28/22 History lidocaine 5 % topical patch 1 patch transdermal Q24H PRN pain 02/27/22 03/28/22 Rx #15 ea oxycodone 5 mg tablet 5 mg PO Q6 PRN severe pain (scale 02/27/22 03/28/22 Rx score 7-10) #10 tabs phenazopyridine 100 mg tablet 100 mg PO TID PRN uinary pain #20 02/27/22 03/28/22 Rx (Pyridium) tabs sennosides 8.6 mg tablet (Senokot) 17.2 mg PO QAM PRN constipation 02/27/22 03/28/22 Rx #30 tabs tamsulosin 0.4 mg capsule 0.4 mg PO DAILY #10 caps 02/27/22 03/28/22 Rx albuterol sulfate 90 mcg/actuation 1 inh inhalation QID PRN Wheezing 03/26/22 03/28/22 History aerosol inhaler albuterol sulfate 2.5 mg/3 mL 2.5 mg continuous nebulization Q4 03/28/22 03/28/22 History (0.083 %) solution for nebulization PRN Shortness Of Breath Or Wheezing Patient History Medical History Anemia Anxiety Asthma USES PRN INH APPROX 1-2 X MONTHLY; DENIES RECENT EXAC Bipolar 1 disorder Chest pain follows with [facility] cardio records, atypical, attributed to GI etiology and anxiety Closed head injury R/T FALL IN 2017; REPORTS CONCUSSION COVID-19 07/25/20 > not hospitalized Depression with suicidal ideation E. coli septicemia Fibroadenoma of breast RT Fibromyalgia Gastroparesis GERD (gastroesophageal reflux disease) Hx of prolonged Q-T interval on ECG PER PT'S MEDICAL RECORD FROM PCP OFFICE. Hx of sepsis hospitalized at [facility] Feb 2022 for this > resolved per pt Hypothyroidism Irregular menses Kidney stone Migraine Obesity PCO (polycystic ovaries) Peripheral neuropathy Poor historian Prediabetes PTSD (post-traumatic stress disorder) Pyelonephritis Recurrent UTI Sleep apnea NO CPAP Surgical History H/O lithotripsy History of ankle surgery RT History of breast biopsy RT History of cystoscopy History of esophagogastroduodenoscopy (EGD) Hx of cholecystectomy Hx of colonoscopy Hx of knee surgery RT Status post labral repair of shoulder RT Family History Father Heart disease Other No significant family history Social History Smoking Status: Never smoker Second Hand Exposure: No; Hx Alcohol Use: No Hx Substance Use: No Preferred Language: Marshallese Communication Ability: Effective House Father Required: No Beliefs That Will Affect Care: None marital status: Single Current Living Situation: Family Current Living Situation Comment: lives w/ mom. disabled. no drivers license current occupational status: disabled Feels Safe at Home: Yes Assistive Devices: Glasses and Hearing Aid - Bilateral Review of Systems Constitutional: no fever and no chills Eyes: + corrective lenses Ear, Nose, Mouth, Throat: no ear pain Respiratory: no cough and no dyspnea Cardiovascular: no chest pain Gastrointestinal: + abdominal pain; no nausea and no vomiting Genitourinary: + dysuria and + flank pain (Right sided) Musculoskeletal: + back pain (Right flank) Integumentary: no rash Neurologic: no localized weakness Physical Exam Constitutional: WD/WN, vitals as above Eyes: Wears glasses ENMT: Ears: no hearing impairment and no external ear abnormality Mouth: no oropharynx abnormality Neck: trachea midline Respiratory: normal respiratory effort; no respiratory distress and no labored breathing Cardiovascular: Rate/Rhythm: regular rate and regular rhythm Gastrointestinal (Abdomen): Abdomen is soft, nonrigid, nondistended. The patient did have pain with palpation on the right side of her abdomen but there is no rebound tenderness or guarding. Musculoskeletal: No calf tenderness Skin: no rashes Neurologic: moves all extremities Psychiatric: A+Ox3, euthymic affect Genitourinary: + CVA tenderness (Right sided noted with percussion) Results & Data ([facility]) Vital Signs (Past 12 Hours) Vital Signs Temp Pulse Pulse Resp BP BP Pulse Ox 03/28/22 00:00 84 18 118/76 95 03/27/22 22:05 98 03/27/22 22:05 93 H 18 130/67 98 03/27/22 21:50 36.7 C 101 H 18 109/63 98 O2 Del Method 03/28/22 00:00 Room Air 03/27/22 22:05 Room Air 03/27/22 22:05 Room Air 03/27/22 21:50 Room Air PG Care Time/CCT Total # of Minutes Spent Total Time Spent with Patient: Total time spent is greater than 50% in coordination of care (as documented) at patient's floor/unit and/or counseling patient: Coding Level of Care Code 57618 Inpt Consult Level 5 Diagnoses Pyelonephritis N12
[2022-03-28] MEDS ORDERED: SODIUM CHLORIDE 0.9% 1000ML 1,000 ML IV SCH (01:55)
[2022-03-28] MEDS ORDERED: ALBUTEROL 0.083% NEBU SOLN 3 ML VIAL NEB PRN (01:55)
[2022-03-28] MEDS ORDERED: SENNA 8.6 MG TAB PO PRN (01:55)
[2022-03-28] MEDS ORDERED: RIZATRIPTAN BENZOATE 10 MG TAB PO PRN (01:55)
[2022-03-28] MEDS ORDERED: FLUTICASONE PROPIONATE NA SPR 16 GM BTL PRN (01:55)
[2022-03-28] MEDS ORDERED: ALBUTEROL HFA 8 GM INHALER INH PRN (01:55)
[2022-03-28 02:25] LABS: Cdiff Toxin B Gene (2yr or >) Positive Cdiff Gene (Neg)
[2022-03-28 03:17] LABS: Cdiff Antigen Positive
[2022-03-28 03:19] LABS: Cdiff Toxin A+B Positive Cdiff Toxin (Negative)
[2022-03-28] MEDS ORDERED: RASPBERRY SYRUP 5 ML UDP PO STA (03:52)
[2022-03-28] MEDS ORDERED: VANCOMYCIN HCL 250 MG/5 ML SOLN PO STA (03:52)
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
[2022-03-28] MEDS: ACETAMINOPHEN 325 MG TAB PO PRN (04:25)
[2022-03-28] MEDS: LEVOTHYROXINE SODIUM 50 MCG TABLET PO SCH (05:56)
[2022-03-28] MEDS: HYDROmorphone INJ 0.5 MG/0.5 ML SYR IV PRN ×2 (06:00→17:07)
--- NOTE | 2022-03-28 07:31 | CT Scan Report ---
CT SCAN OF THE ABDOMEN AND PELVIS WITH IV CONTRAST CLINICAL HISTORY: Right lower quadrant abdominal pain. COMPARISON STUDY: Abdominal CT dated 02/22/2022 and 02/04/2020. TECHNIQUE: Following the IV administration of 85 cc of Optiray 350, CT scan of the abdomen and pelvi s is performed from the lung bases to the proximal femora. Images are reviewed in the axial, sagittal , and coronal planes. IV contrast was administered without complication. A dose lowering technique wa s utilized adhering to the principles of ALARA. CT DOSE: 1016.61 mGy.cm FINDINGS: Lung bases: The heart is normal in size and without pericardial effusion. There is minimal patchy pedro undglass consolidation at the right lung base and a trace right pleural effusion. Liver: The contrast-enhanced liver is enlarged measuring 21.5 cm in length. The liver is otherwise no rmal in contour and attenuation. There is no intrahepatic biliary ductal dilatation. The hepatic vein s and portal veins are patent. Gallbladder: Surgically absent and clips in the gallbladder fossa. Spleen: Normal in size and attenuation. Pancreas: Unremarkable. Adrenal glands: Bilateral adrenal adenomas are unchanged and measure up to 1.7 cm. Kidneys: The contrast enhanced kidneys are normal in size and without hydronephrosis. A right uretera l stent is in appropriate position. There are small stone fragments in the distal right ureter along the course of the stent seen on images #368 and #370. These measure up to 3 mm. Nonspecific urothelia l thickening is noted in the right renal pelvis and the right ureter with surrounding infiltration. T here is heterogeneously increased enhancement of the right kidney as compared to the left. A 5 mm non obstructing calculus is seen in the left kidney. An indeterminate 1.8 cm cortical hypodensity in the posterior interpolar right kidney is unchanged from 2020. Additional subcentimeter Cortical hypodensi ties likely represent cysts but are too small for definitive characterization. Abdominal vasculature: The abdominal aorta is normal in course and caliber. Bowel: No bowel obstruction is seen. There is underdistention of the colon. The appendix is well-vis ualized and normal. Peritoneum: There is no intraperitoneal free air or abdominal ascites. There are fat-containing umbil ical and supraumbilical hernias. Lymphadenopathy: None. Pelvic viscera: The bladder is normal as visualized and contains the distal end of a right renal sten t. The uterus and adnexa are normal as imaged. Skeletal structures: No lytic or blastic lesions are seen. IMPRESSION: 1. A right ureteral stent is in appropriate position. There are small stone fragments in the distal r ight ureter along the course of the stent. No hydronephrosis is seen. 2. There is nonspecific urothelial thickening and enhancement involving the right renal pelvis and ri ght ureter with surrounding infiltration. Additionally, there is heterogeneously diminished enhanceme nt of the right kidney as compared to the left. These findings suggest superimposed urinary tract inf ection/pyelonephritis. Correlate with clinical findings and urinalysis. 3. There is a single nonobstructing left renal calculus. 4. There is minimal patchy groundglass consolidation at the right lung base and a trace right pleural effusion. The appearance is typical for mild pneumonitis. Clinical correlation will be required. 5. Additional findings as above. ACT 112: Negative or not required by law. Electronically signed by: Meño Hendrickson M.D. 03/28/2022 7:30 AM
[2022-03-28 07:53] LABS: Calcium 8.3 mg/dl (8.5-10.1); Creatinine Clr Calc Pharmacy 34.4 ml/min; Est GFR (Non-African American) 59.6 ml/min; Potassium 3.8 mmol/L (3.5-5.1)
[2022-03-28] MEDS: lisinopril 5 MG TAB PO SCH (08:07)
[2022-03-28] MEDS: TOPIRAMATE 100 MG TAB PO SCH ×2 (08:07→21:50)
[2022-03-28] MEDS: CYCLOBENZAPRINE HCL 10 MG TAB PO SCH ×2 (08:07→21:50)
[2022-03-28] MEDS: FERROUS SULFATE 325 MG TAB PO SCH (08:08)
[2022-03-28] MEDS: MAGNESIUM OXIDE 400 MG TAB PO SCH (08:08)
[2022-03-28] MEDS: VITAMIN B COMPLEX TAB PO SCH (08:08)
[2022-03-28] MEDS: lamoTRIgine 100 MG TAB PO SCH (08:08)
[2022-03-28] MEDS: ADVANCED PROBIOTIC 1250 MG CAPSULE PO SCH (08:08)
[2022-03-28] MEDS: GABAPENTIN 300 MG CAP PO SCH ×3 (08:08→21:50)
[2022-03-28] MEDS: CYANOCOBALAMIN (B-12) 500 MCG TABLET PO SCH (08:08)
[2022-03-28] MEDS: DULoxetine HCL 60 MG CAP PO SCH (08:09)
[2022-03-28] MEDS: DICYCLOMINE HCL 20 MG TAB PO SCH ×2 (08:09→21:50)
[2022-03-28] MEDS: cefTRIAXone SODIUM 2,000 MG in DEXTROSE 5% 50 ML IV SCH (08:09)
[2022-03-28] MEDS: PANTOprazole 40 MG TAB PO SCH (08:10)
[2022-03-28] MEDS: TAMSULOSIN HCL 0.4 MG CAP PO SCH (08:10)
[2022-03-28] MEDS: CETIRIZINE HCL 10 MG TABLET PO SCH (08:10)
[2022-03-28] MEDS: GABAPENTIN 800 MG TAB PO SCH ×3 (08:10→21:50)
[2022-03-28] MEDS: DOCUSATE SODIUM 100 MG CAP PO SCH (08:11)
[2022-03-28] MEDS: FLUTICASONE/VILANTEROL 200/25MCG 14 PUFFS/INHALER INH SCH (08:11)
[2022-03-28] MEDS ORDERED: NON-FORMULARY MEDICATION (Cranberry 500 mg Capsule) PO SCH (09:00)
[2022-03-28 10:01] LABS: Basophils # (auto) 0.08 K/uL (0-0.2); Basophils % (auto) 0.5 %; Eosinophils # (auto) 0.55 K/uL (0-0.50); Eosinophils % (auto) 3.7 %; Hematocrit (blood only) 32.4 % (34.1-44.9); Hemoglobin 10.7 g/dl (12.0-16.0); Immature Granulocytes # (auto) 0.13 K/uL (0.00-0.02); Immature Granulocytes % (auto) 0.9 %; Lymphocytes # (auto) 2.45 K/uL (1.2-3.4); Lymphocytes % (auto) 16.6 %; Mean Corpuscular Volume 90.8 fL (80.0-100.0); Monocytes # (auto) 1.14 K/uL (0.24-0.82); Monocytes % (auto) 7.7 %; Neutrophils % (auto) 70.6 %; Platelet Count 420 K/uL (130-400); RDW Coefficient of Variation 13.7 % (11.5-14.5); RDW Standard Deviation 45.9 fL (36.4-46.3); Red Blood Count 3.57 M/uL (3.93-5.22); White Blood Count 14.75 K/ul (4.8-10.8)
--- NOTE | 2022-03-28 10:03 | Urology Progress Note ---
Date of Service March 28, 2022 Assessment & Plan (1) Pyelonephritis: (2) Ureteral calculus: (3) Right flank pain: (4) S/P ureteral stent placement: Plan 47yo F s/p right stent placement for an infected stone on 02/22/2022 who presented with intractable right flank pain and admitted with suspected UTI/Pyelo. CT a/p on arrival demonstrated the right ureteral stent to be in appropriate position, small stone fragments in the distal ureter along the course of the stent, no hydronephrosis, and nonspecific urothelial thickening/enhancement suggestive of superimposed UTI/pyelonephritis. A single nonobstructing left renal calculus was also noted. Urinalysis was concerning for infection. -Afebrile and hemodynamically stable. -Labs reviewed-White count 14.75, creatinine 1.09. -Urine and blood cultures are pending, on IV Ceftriaxone. -Voiding spontaneously, continue to monitor. Bladder scan prn. -No plan for urological intervention today. -Continue supportive care and prn pain management. -Continue antibiotics and tailor as culture data becomes available. -Will make NPO at midnight and reassess in the morning for possible procedure pending patient status. -Discussed plan with hospital team. -Urology will follow. Admission and Anticipated Discharge Date Admission Date: March 28, 2022 Subjective Patient examined at bedside this AM. Awake, resting on arrival. No acute distress. Denies fevers or chills. Some nausea, no vomiting. Has been NPO. Still with right-sided discomfort, managing with pain medication. Denies hematuria, some dysuria. Feels she is emptying her bladder well. On isolation for C. difficile Review of Systems Constitutional: as per Subjective / HPI Gastrointestinal: as per Subjective / HPI Genitourinary: as per Subjective / HPI Physical Exam Constitutional: no acute distress Respiratory: no respiratory distress and no labored breathing Gastrointestinal (Abdomen): Percussion/Palpation: abdomen soft; no guarding and abdomen not rigid Mild right flank/abdominal tenderness with palpation Neurologic: awake Psychiatric: Orientation: alert and oriented x 3 Results & Data ([facility]) Vital Signs (Past 12 Hours) Vital Signs Temp Pulse Pulse Resp BP Pulse Ox O2 Del Method 03/28/22 08:00 Room Air 03/28/22 07:36 36.7 C 83 16 120/77 96 Room Air 03/28/22 02:00 36.8 C 81 16 117/72 96 Room Air 03/28/22 00:00 84 18 118/76 95 Room Air 03/27/22 22:05 98 Room Air 03/27/22 22:05 93 H 18 130/67 98 Room Air PG Care Time/CCT Total # of Minutes Spent Total Time Spent with Patient: Total time spent is greater than 50% in coordination of care (as documented) at patient's floor/unit and/or counseling patient: Coding Level of Care Code None Diagnoses Pyelonephritis N12 Ureteral calculus N20.1 Right flank pain R10.9 S/P ureteral stent placement Z96.0
[2022-03-28] MEDS: VANCOMYCIN HCL 125 MG/2.5ML SOLN PO SCH ×2 (11:51→17:08)
[2022-03-28] MEDS: RASPBERRY SYRUP 5 ML UDP PO SCH ×2 (11:51→17:08)
--- NOTE | 2022-03-28 12:26 | Hospitalist Progress Note ---
Date of Service March 28, 2022 Assessment & Plan (1) Pyelonephritis: (2) Right flank pain: (3) S/P ureteral stent placement: (4) Ureteral calculus: Plan: Admitted from 02/23-02/27 with right-sided ureteral stone. Blood culture was positive for E. coli. Was transition to p.o. ciprofloxacin to complete 14-day course. Underwent stent placement on right ureter stent placement on 02/22. Presents to the hospital with right sided flank pain and right CVA tenderness. CT abdomen shows finding concerning for right-sided pyelonephritis. Leukocytosis present Urinalysis suggestive for infection Plan; Continue on ceftriaxone for now. We will follow-up on urine and blood culture to decide on treatment. Urology on board; recommend to continue supportive care. No planned procedure yet. (5) Clostridioides difficile infection: Plan: Was treated for E. coli bacteremia last admission secondary to UTI Was discharged on ciprofloxacin. C. difficile positive on admission. Plan; On vancomycin oral every 6 hours. Total treatment duration of 10 days. Monitor for diarrhea, abdominal pain (6) Bipolar 2 disorder, major depressive episode: Plan: Continue home medication (7) Hypothyroidism: Plan: Continue on home levothyroxine (8) GERD (gastroesophageal reflux disease): Plan: On Pepcid Plan Full code DVT prophylaxis Heparin Admission and Anticipated Discharge Date Admission Date: March 28, 2022 Subjective Patient seen and examined at bedside. Patient reports that she has pain on her right side. Also reports increased urgency and frequency. Reports diarrhea which is going on for 1 and half weeks. Review of Systems Review of Systems: All systems reviewed & are unremarkable except as noted in Subjective Physical Exam Physical Exam: Constitutional: WD/WN, vitals as above, NAD, sitting up in bed, pleasant, conversing easily Respiratory: normal respiratory effort, lungs clear to auscultation, no wheeze, rales, rhonchi. Normal insp/exp effort, no accessory muscle use Cardiovascular: RRR, no murmur, no edema Vessels: no JVD or carotid bruit Chest: normal inspection of chest Abdomen: Abdomen slightly tender on right lower quadrant. Soft. Musculoskeletal: no cyanosis or clubbing, extremities motor strength 5/5 Skin: no rashes, warm and dry normal turgor Neurologic: PERRL, EOMI, accommodation nl, no face palsy, no dysarthria CN's II- XI intact bilaterally and moves all extremities Psychiatric: A+Ox3, euthymic affect Lymphatic: no cervical or axillary lymphadenopathy : deferred Results & Data Results & Data ([facility]) Vital Signs (Past 12 Hours) Vital Signs Temp Pulse Resp BP Pulse Ox O2 Del Method 03/28/22 08:00 Room Air 03/28/22 07:36 36.7 C 83 16 120/77 96 Room Air 03/28/22 02:00 36.8 C 81 16 117/72 96 Room Air Laboratory Results Laboratory Results WBC 14.75 K/ul (4.8-10.8) H 03/28/22 07:00 RBC 3.57 M/uL (3.93-5.22) L 03/28/22 07:00 Hgb 10.7 g/dl (12.0-16.0) L 03/28/22 07:00 POC Hgb 10.5 g/dl (12.0-16.0) L 03/27/22 22:16 Hct 32.4 % (34.1-44.9) L 03/28/22 07:00 POC Hct 31 % (37-47) L 03/27/22 22:16 MCV 90.8 fL (80.0-100.0) 03/28/22 07:00 MCH 30.0 pg (25.0-34.0) 03/28/22 07:00 MCHC 33.0 g/dL (32.0-36.0) 03/28/22 07:00 RDW Std Deviation 45.9 fL (36.4-46.3) 03/28/22 07:00 RDW Coeff of Kailee 13.7 % (11.5-14.5) 03/28/22 07:00 Plt Count 420 K/uL (130-400) H 03/28/22 07:00 MPV 9.0 fL (9.4-12.3) L 03/28/22 07:00 Immature Gran % (Auto) 0.9 % 03/28/22 07:00 Neut % (Auto) 70.6 % 03/28/22 07:00 Lymph % (Auto) 16.6 % 03/28/22 07:00 [place] % (Auto) 7.7 % 03/28/22 07:00 Eos % (Auto) 3.7 % 03/28/22 07:00 Baso % (Auto) 0.5 % 03/28/22 07:00 Neut # (Auto) 10.40 K/uL (1.4-6.5) H 03/28/22 07:00 Lymph # (Auto) 2.45 K/uL (1.2-3.4) 03/28/22 07:00 [place] # (Auto) 1.14 K/uL (0.24-0.82) H 03/28/22 07:00 Eos # (Auto) 0.55 K/uL (0-0.50) H 03/28/22 07:00 Baso # (Auto) 0.08 K/uL (0-0.2) 03/28/22 07:00 Immature Gran # (Auto) 0.13 K/uL (0.00-0.02) H 03/28/22 07:00 POC Sodium 141 mmol/L (135-144) 03/27/22 22:16 Sodium 137 mmol/L (136-145) 03/28/22 07:00 POC Potassium 3.9 mmol/L (3.3-5.0) 03/27/22 22:16 Potassium 3.8 mmol/L (3.5-5.1) 03/28/22 07:00 POC Chloride 110 mmol/L (101-112) 03/27/22 22:16 Chloride 113 mmol/L (98-107) H 03/28/22 07:00 Carbon Dioxide 18 mmol/L (21-32) L 03/28/22 07:00 POC Total CO2 19 mmol/L (24-31) L 03/27/22 22:16 Anion Gap 6 (3-11) 03/28/22 07:00 POC Anion Gap 17.0 mmol/L (16-25) 03/27/22 22:16 POC BUN 12 mg/dl (7-18) 03/27/22 22:16 BUN 12 mg/dl (6-23) 03/28/22 07:00 Creatinine 1.09 mg/dl (0.6-1.2) 03/28/22 07:00 POC Creatinine 1.2 mg/dl (0.6-1.3) 03/27/22 22:16 Est Cr Clr Drug Dosing 34.4 ml/min 03/28/22 07:00 Est GFR ( Amer) 69.0 ml/min 03/28/22 07:00 Est GFR (Non-Af Amer) 59.6 ml/min 03/28/22 07:00 BUN/Creatinine Ratio 11.0 (10-20) 03/28/22 07:00 Glucose 104 mg/dl (70-99(Fasting)) H 03/28/22 07:00 POC Glucose (other) 95 mg/dl (70-99) 03/27/22 22:16 Calcium 8.3 mg/dl (8.5-10.1) L 03/28/22 07:00 POC Ioniz Calcium Panfilo 1.26 mmol/l (1.12-1.32) 03/27/22 22:16 Magnesium 2.0 mg/dl (1.7-2.4) 03/28/22 07:00 Total Bilirubin 0.4 mg/dl (0.2-1.0) 03/27/22 20:08 AST 29 U/L (13-39) 03/27/22 20:08 ALT 45 U/L (7-52) 03/27/22 20:08 Alkaline Phosphatase 73 U/L (34-104) 03/27/22 20:08 Total Protein 7.4 gm/dl (6.0-8.3) 03/27/22 20:08 Albumin 3.8 gm/dl (3.4-5.0) 03/27/22 20:08 Globulin 3.6 gm/dl (2.5-4.0) 03/27/22 20:08 Albumin/Globulin Ratio 1.1 (0.9-2) 03/27/22 20:08 Lipase 46 U/L (11-82) 03/27/22 20:08 HCG, Qual Negative (Negative) 03/27/22 20:08 Urine Color Yellow 03/27/22:41 Urine Appearance Cloudy (Clear) A 03/27/22: Urine pH 7.0 (4.5-7.5) 03/27/22: Ur Specific Wylie 1.019 (1.000-1.030) 03/27/22 22:41 Urine Protein 1+ (Negative) H 03/27/22 22:41 Urine Glucose (UA) Negative (Negative) 12/13/22 22:41 Urine Ketones Negative (Negative) 03/27/22 22:41 Urine Blood 2+ (Negative) H 03/27/22 22:41 Urine Nitrite Positive (Negative) A 03/27/22 22:41 Urine Bilirubin Negative (Negative) 03/27/22 22:41 Urine Urobilinogen Negative (Negative) 03/27/22 22:41 Ur Leukocyte Esterase 2+ (Negative) H 03/27/22 22:41 Urine WBC (Auto) >30 /hpf (0-5) H 03/27/22 22:41 Urine RBC (Auto) >30 /hpf (0-4) H 03/27/22 22:41 U Hyaline Cast (Auto) 0 /lpf (0-5) 03/27/22 22:41 U Epithel Cells (Auto) >30 /lpf (0-5) H 03/27/22 22:41 Urine Bacteria (Auto) 1+ (Negative) H 03/27/22 22:41 Urine Mucus Present (None Prsent) A 03/27/22 22:41 Urine Yeast Not Reportable 03/27/22 22:41 Stl C. diff Tox B Gene Positive Cdiff Gene (Neg) H 03/28/22 01:05 Stl C.difficile Tox A&B Positive Cdiff Toxin (Negative) A* 03/28/22 01:05 SARS-CoV-2, RNA, NAAT NEGATIVE (NEGATIVE) 03/27/22 23:49 Impressions Abdomen/Pelvis CT 03/27/22 21:59 CT SCAN OF THE ABDOMEN AND PELVIS WITH IV CONTRAST CLINICAL HISTORY: Right lower quadrant abdominal pain. COMPARISON STUDY: Abdominal CT dated 02/22/2022 and 02/04/2020. TECHNIQUE: Following the IV administration of 85 cc of Optiray 350, CT scan of the abdomen and pelvis is performed from the lung bases to the proximal femora. Images are reviewed in the axial, sagittal, and coronal planes. IV contrast was administered without complication. A dose lowering technique was utilized adhering to the principles of ALARA. CT DOSE: 1016.61 mGy.cm FINDINGS: Lung bases: The heart is normal in size and without pericardial effusion. There is minimal patchy groundglass consolidation at the right lung base and a trace right pleural effusion. Liver: The contrast-enhanced liver is enlarged measuring 21.5 cm in length. The liver is otherwise normal in contour and attenuation. There is no intrahepatic biliary ductal dilatation. The hepatic veins and portal veins are patent. Gallbladder: Surgically absent and clips in the gallbladder fossa. Spleen: Normal in size and attenuation. Pancreas: Unremarkable. Adrenal glands: Bilateral adrenal adenomas are unchanged and measure up to 1.7 cm. Kidneys: The contrast enhanced kidneys are normal in size and without hydronephrosis. A right ureteral stent is in appropriate position. There are small stone fragments in the distal right ureter along the course of the stent seen on images #368 and #370. These measure up to 3 mm. Nonspecific urothelial thickening is noted in the right renal pelvis and the right ureter with melvin rounding infiltration. There is heterogeneously increased enhancement of the right kidney as compared to the left. A 5 mm nonobstructing calculus is seen in the left kidney. An indeterminate 1.8 cm cortical hypodensity in the posterior interpolar right kidney is unchanged from 2020. Additional subcentimeter Cortical hypodensities likely represent cysts but are too small for definitive characterization. Abdominal vasculature: The abdominal aorta is normal in course and caliber. Bowel: No bowel obstruction is seen. There is underdistention of the colon. The appendix is well-visualized and normal. Peritoneum: There is no intraperitoneal free air or abdominal ascites. There are fat-containing umbilical and supraumbilical hernias. Lymphadenopathy: None. Pelvic viscera: The bladder is normal as visualized and contains the distal end of a right renal stent. The uterus and adnexa are normal as imaged. Skeletal structures: No lytic or blastic lesions are seen. IMPRESSION: 1. A right ureteral stent is in appropriate position. There are small stone fragments in the distal right ureter along the course of the stent. No hydronephrosis is seen. 2. There is nonspecific urothelial thickening and enhancement involving the right renal pelvis and right ureter with surrounding infiltration. Additionally, there is heterogeneously diminished enhancement of the right kidney as compared to the left. These findings suggest superimposed urinary tract infection/pyelonephritis. Correlate with clinical findings and urinalysis. 3. There is a single nonobstructing left renal calculus. 4. There is minimal patchy groundglass consolidation at the right lung base and a trace right pleural effusion. The appearance is typical for mild pneumonitis. Clinical correlation will be required. 5. Additional findings as above. ACT 112: Negative or not required by law. Electronically signed by: Meño Hendrickson M.D. 03/28/2022 7:30 AM
[2022-03-28] MEDS: ONDANSETRON INJ 2 MG/ML 2 ML VIAL IV PRN ×2 (14:22→20:38)
[2022-03-28] MEDS: HEPARIN SOD 5,000 UNIT/0.5 ML VIAL SQ SCH (14:23)
[2022-03-28] MEDS: FAMOTIDINE 20 MG TAB PO SCH (21:50)
[2022-03-28] MEDS: hydrOXYzine HCl 25 MG TAB PO SCH (21:50)
[2022-03-28] MEDS: PRAZOSIN HCL 1 MG CAP PO SCH (21:50)
[2022-03-28] MEDS: AMITRIPTYLINE HCL 50 MG TAB PO SCH (21:50)
[2022-03-29] MEDS: RASPBERRY SYRUP 5 ML UDP PO SCH ×4 (00:15→17:54)
[2022-03-29] MEDS: VANCOMYCIN HCL 125 MG/2.5ML SOLN PO SCH ×4 (00:15→17:54)
[2022-03-29] MEDS: LEVOTHYROXINE SODIUM 50 MCG TABLET PO SCH (05:51)
[2022-03-29 06:30] LABS: Basophils % (auto) 0.7 %; Eosinophils # (auto) 0.66 K/uL (0-0.50); Eosinophils % (auto) 4.8 %; Hematocrit (blood only) 29.6 % (34.1-44.9); Hemoglobin 9.7 g/dl (12.0-16.0); Immature Granulocytes # (auto) 0.13 K/uL (0.00-0.02); Immature Granulocytes % (auto) 0.9 %; Lymphocytes # (auto) 2.77 K/uL (1.2-3.4); Lymphocytes % (auto) 20.2 %; Mean Corpuscular Hemoglobin 29.2 pg (25.0-34.0); Mean Corpuscular Hgb Conc 32.8 g/dL (32.0-36.0); Mean Corpuscular Volume 89.2 fL (80.0-100.0); Mean Platelet Volume 8.9 fL (9.4-12.3); Monocytes # (auto) 0.86 K/uL (0.24-0.82); Monocytes % (auto) 6.3 %; Neutrophils % (auto) 67.1 %; Platelet Count 342 K/uL (130-400); RDW Coefficient of Variation 13.6 % (11.5-14.5); RDW Standard Deviation 44.7 fL (36.4-46.3); Red Blood Count 3.32 M/uL (3.93-5.22); White Blood Count 13.72 K/ul (4.8-10.8)
[2022-03-29 07:16] LABS: BUN Creatinine Ratio 7.6 (10-20); Calcium 8.4 mg/dl (8.5-10.1); Creatinine Clr Calc Pharmacy 35.7 ml/min; Est GFR (African American) 72.2 ml/min; Est GFR (Non-African American) 62.3 ml/min; Potassium 3.5 mmol/L (3.5-5.1)
--- NOTE | 2022-03-29 08:11 | Urology Progress Note ---
Date of Service March 29, 2022 Assessment & Plan (1) Pyelonephritis: (2) Ureteral calculus: (3) Right flank pain: (4) S/P ureteral stent placement: Plan 47yo F s/p right stent placement for an infected stone on 02/22/2022 who presented with intractable right flank pain and admitted with suspected UTI/Pyelo. CT a/p on arrival demonstrated the right ureteral stent to be in appropriate position, small stone fragments in the distal ureter along the course of the stent, no hydronephrosis, and nonspecific urothelial thickening/enhancement suggestive of superimposed UTI/pyelonephritis. A single nonobstructing left renal calculus was also noted. Urinalysis was concerning for infection. Also found to have CDiff and being treated with oral vancomycin. -Afebrile and hemodynamically stable. -Labs reviewed-White count 13.72, creatinine 1.05. -Urine and blood cultures are pending, on IV Ceftriaxone. -Voiding spontaneously, continue to monitor. Bladder scan prn. -Since her stent is in appropriate position and she was found to have a C. difficile infection as well as concern for UTI, no plan for urological intervention at this time -Will need to complete duration of treatment for C. difficile infection prior to considering stone treatment. -Continue supportive care and prn pain management. -Continue antibiotics and tailor as culture data becomes available. -Urology will follow. Admission and Anticipated Discharge Date Admission Date: March 28, 2022 Subjective Patient examined at bedside this AM. Awake, resting in bed on arrival. No a cute distress. Reports that her right flank pain has improved compared to yesterday. No fevers or chills. Denies nausea or vomiting. Voiding without issue. Some hematuria and dysuria. Feels she is emptying her bladder well. Review of Systems Constitutional: as per Subjective / HPI Gastrointestinal: as per Subjective / HPI Genitourinary: as per Subjective / HPI Physical Exam Constitutional: no acute distress Respiratory: no respiratory distress and no labored breathing Neurologic: awake Psychiatric: Orientation: alert and oriented x 3 Results & Data ([facility]) Vital Signs (Past 12 Hours) Vital Signs Temp Pulse Pulse Resp BP Pulse Ox Pulse Ox 03/29/22 07:30 36.7 C 80 16 129/80 98 03/29/22 02:39 85 95 03/29/22 01:12 87 97 03/28/22 23:09 36.8 C 89 16 93/62 L 96 03/28/22 21:48 91 H 98 O2 Del Method O2 Del Method 03/29/22 07:30 Room Air 03/29/22 02:39 Room Air 03/29/22 01:12 Room Air 03/28/22 23:09 Room Air 03/28/22 21:48 Room Air PG Care Time/CCT Total # of Minutes Spent Total Time Spent with Patient: Total time spent is greater than 50% in coordination of care (as documented) at patient's floor/unit and/or counseling patient: Coding Level of Care Code 05938 Subseq Hosp Care Lvl 2 Diagnoses Pyelonephritis N12 Ureteral calculus N20.1 Right flank pain R10.9 S/P ureteral stent placement Z96.0
[2022-03-29] MEDS: cefTRIAXone SODIUM 2,000 MG in DEXTROSE 5% 50 ML IV SCH (09:48)
[2022-03-29] MEDS: ONDANSETRON INJ 2 MG/ML 2 ML VIAL IV PRN (09:48)
[2022-03-29] MEDS: DOCUSATE SODIUM 100 MG CAP PO SCH (09:53)
[2022-03-29] MEDS: lamoTRIgine 100 MG TAB PO SCH (09:53)
[2022-03-29] MEDS: VITAMIN B COMPLEX TAB PO SCH (09:53)
[2022-03-29] MEDS: CYCLOBENZAPRINE HCL 10 MG TAB PO SCH ×2 (09:53→20:17)
[2022-03-29] MEDS: CETIRIZINE HCL 10 MG TABLET PO SCH (09:54)
[2022-03-29] MEDS: DULoxetine HCL 60 MG CAP PO SCH (09:54)
[2022-03-29] MEDS: MAGNESIUM OXIDE 400 MG TAB PO SCH (09:54)
[2022-03-29] MEDS: CYANOCOBALAMIN (B-12) 500 MCG TABLET PO SCH (09:54)
[2022-03-29] MEDS: ADVANCED PROBIOTIC 1250 MG CAPSULE PO SCH (09:54)
[2022-03-29] MEDS: GABAPENTIN 300 MG CAP PO SCH ×3 (09:54→20:20)
[2022-03-29] MEDS: DICYCLOMINE HCL 20 MG TAB PO SCH ×2 (09:54→20:21)
[2022-03-29] MEDS: TAMSULOSIN HCL 0.4 MG CAP PO SCH (09:54)
[2022-03-29] MEDS: GABAPENTIN 800 MG TAB PO SCH ×3 (09:54→20:22)
[2022-03-29] MEDS: FERROUS SULFATE 325 MG TAB PO SCH (09:54)
[2022-03-29] MEDS: TOPIRAMATE 100 MG TAB PO SCH ×2 (09:55→20:20)
[2022-03-29] MEDS: PANTOprazole 40 MG TAB PO SCH (09:55)
[2022-03-29] MEDS: FLUTICASONE/VILANTEROL 200/25MCG 14 PUFFS/INHALER INH SCH (09:56)
--- NOTE | 2022-03-29 09:58 | Anesthesiology Consultation ---
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 Surgery Operation Date: 03/29/22 11:00 Proposed Procedures p Cystoscopy, Ureteronephroscopy, Retrograde Pyelogram, with Possible Ureteral Dilation Laser Destruction or Extraction of the Stone, Insertion or Exchange of Stent Catheter - Right Yonathan Hayes DO Height/Weight Height: 5 ft 3.5 in Weight: 34.9 kg Allergies Allergy/AdvReac Type Severity Reaction Status Date / Time bee venom protein (honey bee) Allergy Severe ANAPHYLAXIS Verified 03/27/22 23:52 morphine AdvReac Intermediate HALLUCINATI Verified 03/27/22 23:52 ONS Medications Home Medications Medication Instructions Recorded Confirmed Last Taken cyclobenzaprine 10 mg tablet 10 mg PO AMHS 01/10/18 03/28/22 06/03/21 08:00 docusate sodium 100 mg capsule 100 mg PO QAM 01/10/18 03/28/22 06/03/21 (Colace) epinephrine 0.3 mg/0.3 mL 0.3 mg IM DIRECTED PRN Severe 01/10/18 03/28/22 01/21/18 injection, auto-injector (EpiPen) Allergic Reaction ferrous sulfate 325 mg (65 mg 325 mg PO QAM 01/10/18 03/28/22 06/03/21 iron) tablet (Feosol) fluticasone furoate 200 1 inh inhalation QAM 01/10/18 03/28/22 06/03/21 mcg-vilanterol 25 mcg/dose inhalation powder (Breo Ellipta) fluticasone propionate 50 2 spray intranasal DAILY PRN 01/10/18 03/28/22 04/17/18 mcg/actuation nasal Allergy Symptoms spray,suspension (Flonase Allergy Relief) gabapentin 800 mg tablet 800 mg PO TID 01/10/18 03/28/22 06/03/21 14:00 levothyroxine 50 mcg tablet 50 mcg PO DAILYBB 01/10/18 03/28/22 06/03/21 pantoprazole 40 mg tablet,delayed 40 mg PO QAM 01/10/18 03/28/22 06/03/21 release (Protonix) rizatriptan 10 mg tablet (Maxalt) 10 mg PO DIRECTED PRN Migraine 01/10/18 03/28/22 09/29/20 Headache topiramate 200 mg tablet (Topamax) 200 mg PO AMHS 05/25/18 03/28/22 06/03/21 08:00 prazosin 2 mg capsule (Minipress) 4 mg PO HS 06/19/18 03/28/22 06/02/21 cetirizine 10 mg tablet (Zyrtec) 10 mg PO QAM 09/20/18 03/28/22 06/03/21 Lactobacillus comb 1 cap PO QAM 10/14/18 03/28/22 06/03/21 [id number] 300 million cell-250 mg capsule (Probiotic and Acidophilus) hydroxyzine pamoate 50 mg capsule 50 mg PO HS 10/14/18 03/28/22 06/02/21 (Vistaril) onabotulinumtoxinA 200 unit 0 unit IM .Q12 WEEKS 10/14/18 03/28/22 05/25/21 solution for injection (Botox) magnesium oxide 400 mg PO QAM 04/07/19 03/28/22 06/03/21 gabapentin 300 mg capsule 300 mg PO TID 08/08/19 03/28/22 06/03/21 14:00 (Neurontin) lamotrigine 200 mg tablet 200 mg PO QAM 08/08/19 03/28/22 06/03/21 (Lamictal) ondansetron 4 mg disintegrating 4 mg PO Q8H PRN Nausea 08/08/19 03/28/22 02/25/21 tablet cranberry 500 mg capsule 500 mg PO QAM 02/14/20 03/28/22 06/03/21 cyanocobalamin (vitamin B-12) 1,000 mcg PO QAM 02/14/20 03/28/22 06/03/21 1,000 mcg tablet (Vitamin B-12) norethindrone 1.5 mg-ethinyl 1 tab PO QAM 02/14/20 03/28/22 06/03/21 estradiol 30 mcg(21)/iron 75 mg(7) tablet (Junel FE 1.5/30 (28)) lisinopril 5 mg tablet 5 mg PO QAM 09/15/20 03/28/22 06/03/21 duloxetine 60 mg capsule,delayed 60 mg PO QAM 03/04/21 03/28/22 06/03/21 release dicyclomine 20 mg tablet 20 mg PO BID 10/28/21 03/28/22 Unknown famotidine 20 mg tablet 20 mg PO HS 10/28/21 03/28/22 Unknown metformin 500 mg tablet,extended 500 mg PO QDD 10/28/21 03/28/22 Unknown release 24 hr lidocaine 5 % topical patch 1 patch transdermal QAM PRN pain 11/01/21 03/28/22 Unknown #15 ea amitriptyline 50 mg tablet 50 mg PO HS 02/22/22 03/28/22 Unknown lorazepam 0.5 mg tablet (Ativan) 0.5 mg PO TID PRN Anxiety 02/22/22 03/28/22 Unknown vitamin B complex 1 tab PO DAILY 02/22/22 03/28/22 Unknown lidocaine 5 % topical patch 1 patch transdermal Q24H PRN pain 02/27/22 03/28/22 Unknown #15 ea oxycodone 5 mg tablet 5 mg PO Q6 PRN severe pain (scale 02/27/22 03/28/22 Unknown score 7-10) #10 tabs phenazopyridine 100 mg tablet 100 mg PO TID PRN uinary pain #20 02/27/22 03/28/22 Unknown (Pyridium) tabs sennosides 8.6 mg tablet (Senokot) 17.2 mg PO QAM PRN constipation 02/27/22 03/28/22 Unknown #30 tabs tamsulosin 0.4 mg capsule 0.4 mg PO DAILY #10 caps 02/27/22 03/28/22 Unknown albuterol sulfate 90 mcg/actuation 1 inh inhalation QID PRN Wheezing 03/26/22 03/28/22 Unknown aerosol inhaler albuterol sulfate 2.5 mg/3 mL 2.5 mg continuous nebulization Q4 03/28/22 03/28/22 Unknown (0.083 %) solution for nebulization PRN Shortness Of Breath Or Wheezing Active Medications Generic Name Dose Route Start Last Admin Trade Name Freq PRN Reason Stop Dose Admin Acetaminophen 650 mg 03/28/22 01:55 03/28/22 04:25 Acetaminophen 325 Mg Tab PO 04/27/22 01:54 650 mg Q4H PRN Administration pain/fever Amitriptyline HCl 50 mg 03/28/22 21:00 03/28/22 21:50 Amitriptyline Hcl 50 Mg Tab PO 04/27/22 20:59 50 mg HS VALERI Administration Cetirizine HCl 10 mg 03/28/22 09:00 03/29/22 09:54 Cetirizine Hcl 10 Mg Tablet PO 04/27/22 08:59 10 mg QAM VALERI Administration Cyanocobalamin 1,000 mcg 03/28/22 09:00 03/29/22 09:54 Cyanocobalamin (B-12) 500 Mcg Tablet PO 04/27/22 08:59 1,000 mcg QAM VALERI Administration Cyclobenzaprine HCl 10 mg 03/28/22 09:00 03/29/22 09:53 Cyclobenzaprine Hcl 10 Mg Tab PO 04/27/22 08:59 10 mg BID VALERI Administration Dicyclomine HCl 20 mg 03/28/22 09:00 03/29/22 09:54 Dicyclomine Hcl 20 Mg Tab PO 04/27/22 08:59 20 mg BID VALERI Administration Docusate Sodium 100 mg 03/28/22 09:00 03/29/22 09:53 Docusate Sodium 100 Mg Cap PO 04/27/22 08:59 Not Given QAM VALERI Duloxetine HCl 60 mg 03/28/22 09:00 03/29/22 09:54 Duloxetine Hcl 60 Mg Cap PO 04/27/22 08:59 60 mg QAM VALERI Administration Famotidine 20 mg 03/28/22 21:00 03/28/22 21:50 Famotidine 20 Mg Tab PO 04/27/22 20:59 20 mg HS VALERI Administration Ferrous Sulfate 325 mg 03/28/22 09:00 03/29/22 09:54 Ferrous Sulfate 325 Mg Tab PO 04/27/22 08:59 325 mg QAM VALERI Administration Fluticasone/Vilanterol 1 puffs 03/28/22 09:00 03/29/22 09:56 Fluticasone/Vilanterol 200/25mcg 14 Puffs/Inhaler INH 04/27/22 08:59 1 puffs QAM VALERI Administration Gabapentin 800 mg 03/28/22 09:00 03/29/22 09:54 Gabapentin 800 Mg Tab PO 04/27/22 08:59 800 mg TID VALERI Administration Gabapentin 300 mg 03/28/22 09:00 03/29/22 09:54 Gabapentin 300 Mg Cap PO 04/27/22 08:59 300 mg TID VALERI Administration Heparin Sodium (Porcine) 5,000 units 03/28/22 14:00 03/28/22 14:23 Heparin Sod 5,000 Unit/0.5 Ml Vial SQ 04/27/22 13:59 5,000 units Q8 VALERI Administration Hydromorphone HCl 0.5 mg 03/28/22 01:55 03/28/22 17:07 Hydromorphone Inj 0.5 Mg/0.5 Ml Syr IV 04/11/22 01:54 0.5 mg Q4H PRN Administration Pain Hydroxyzine HCl 50 mg 03/28/22 21:00 03/28/22 21:50 Hydroxyzine Hcl 25 Mg Tab PO 04/27/22 20:59 50 mg HS VALERI Administration Ceftriaxone Sodium 2,000 mg/ 70 mls @ 100 mls/hr 03/28/22 08:00 03/29/22 09:51 Dextrose IV 04/07/22 07:59 0 mls/hr Q24H VALERI Infusion Protocol Lactobacillus Acidophilus 2 cap 03/28/22 09:00 03/29/22 09:54 Advanced Probiotic 1250 Mg Capsule PO 04/27/22 08:59 2 cap QAM VALERI Administration Lamotrigine 200 mg 03/28/22 09:00 03/29/22 09:53 Lamotrigine 100 Mg Tab PO 04/27/22 08:59 200 mg QAM VALERI Administration Levothyroxine Sodium 50 mcg 03/28/22 06:30 03/29/22 05:51 Levothyroxine Sodium 50 Mcg Tablet PO 04/27/22 06:29 50 mcg DAILYBB VALERI Administration Lisinopril 5 mg 03/28/22 09:00 03/28/22 08:07 Lisinopril 5 Mg Tab PO 04/27/22 08:59 5 mg QAM VALERI Administration Magnesium Oxide 400 mg 03/28/22 09:00 03/29/22 09:54 Magnesium Oxide 400 Mg Tab PO 04/27/22 08:59 400 mg QAM VALERI Administration Ondansetron HCl 4 mg 03/28/22 01:55 03/29/22 09:48 Ondansetron Inj 2 Mg/Ml 2 Ml Vial IV 04/27/22 01:54 4 mg Q6H PRN Administration Nausea Pantoprazole Sodium 40 mg 03/28/22 09:00 03/29/22 09:55 Pantoprazole 40 Mg Tab PO 04/27/22 08:59 40 mg QAM VALERI Administration Prazosin HCl 4 mg 03/28/22 21:00 03/28/22 21:50 Prazosin Hcl 1 Mg Cap PO 04/27/22 20:59 4 mg HS VALERI Administration Raspberry 5 ml 03/28/22 12:00 03/29/22 05:51 Raspberry Syrup 5 Ml Udp PO 04/07/22 11:59 5 ml Q6 VALERI Administration Tamsulosin HCl 0.4 mg 03/28/22 09:00 03/29/22 09:54 Tamsulosin Hcl 0.4 Mg Cap PO 04/27/22 08:59 0.4 mg DAILY VALERI Administration Topiramate 200 mg 03/28/22 09:00 03/29/22 09:55 Topiramate 100 Mg Tab PO 04/27/22 08:59 200 mg BID VALERI Administration Vancomycin HCl 125 mg 03/28/22 12:00 03/29/22 05:51 Vancomycin Hcl 125 Mg/2.5ml Soln PO 04/07/22 11:59 125 mg Q6 VALERI Administration Vitamin B Complex 1 tab 03/28/22 09:00 03/29/22 09:53 Vitamin B Complex Tab PO 04/27/22 08:59 1 tab DAILY VALERI Administration Past Medical History Medical History Anemia Anxiety Asthma USES PRN INH APPROX 1-2 X MONTHLY; DENIES RECENT EXAC Bipolar 1 disorder Chest pain follows with [facility] cardio records, atypical, attributed to GI etiology and anxi ety Closed head injury R/T FALL IN 2017; REPORTS CONCUSSION COVID-19 07/25/20 > not hospitalized Depression with suicidal ideation E. coli septicemia Fibroadenoma of breast RT Fibromyalgia Gastroparesis GERD (gastroesophageal reflux disease) Hx of prolonged Q-T interval on ECG PER PT'S MEDICAL RECORD FROM PCP OFFICE. Hx of sepsis hospitalized at [facility] Feb 2022 for this > resolved per pt Hypothyroidism Irregular menses Kidney stone Migraine Obesity PCO (polycystic ovaries) Peripheral neuropathy Poor historian Prediabetes PTSD (post-traumatic stress disorder) Pyelonephritis Recurrent UTI Sleep apnea NO CPAP Past Family History Family History Father Heart disease Other No significant family history Past Surgical History Surgical History H/O lithotripsy History of ankle surgery RT History of breast biopsy RT History of cystoscopy History of esophagogastroduodenoscopy (EGD) Hx of cholecystectomy Hx of colonoscopy Hx of knee surgery RT Status post labral repair of shoulder RT Social History Smoking Status: Never smoker Hx Alcohol Use: No Hx Substance Use: No substance use type: does not use Physical Exam Vital Signs Last Vital Signs Temp 98.1 F 03/29/22 07:30 Pulse 80 03/29/22 07:30 Resp 16 03/29/22 07:30 BP 129/80 03/29/22 07:30 Pulse Ox 98 03/29/22 07:30 O2 Del Method 03/29/22 07:30 Testing Laboratory Results 03/29/22 05:53 03/29/22 05:53 Urine Color Yellow 03/27/22 22:41 Urine Appearance Cloudy (Clear) A 03/27/22 22:41 Urine pH 7.0 (4.5-7.5) 03/27/22 22:41 Ur Specific Morton 1.019 (1.000-1.030) 03/27/22 22:41 Urine Protein 1+ (Negative) H 03/27/22 22:41 Urine Glucose (UA) Negative (Negative) 03/27/22 22:41 Urine Ketones Negative (Negative) 03/27/22 22:41 Urine Nitrite Positive (Negative) A 03/27/22 22:41 Ur Leukocyte Esterase 2+ (Negative) H 03/27/22 22:41 Urine WBC (Auto) >30 /hpf (0-5) H 03/27/22 22:41 Urine RBC (Auto) >30 /hpf (0-4) H 03/27/22 22:41 U Hyaline Cast (Auto) 0 /lpf (0-5) 03/27/22 22:41 U Epithel Cells (Auto) >30 /lpf (0-5) H 03/27/22 22:41 Urine Bacteria (Auto) 1+ (Negative) H 03/27/22 22:41 03/27/22 23:41 Aerobic Blood Culture - Preliminary Blood No growth in Aerobic bottle after 24 hours. Anaerobic Blood Culture - Final 03/27/22 23:49 Aerobic Blood Culture - Preliminary Blood No growth in Aerobic bottle after 24 hours. Anaerobic Blood Culture - Final Other Testing Electrocardiogram Date: 03/20/22 NSR, rate 74 bpm Chest X-Ray Date: 03/20/22 The cardiac silhouette remains top normal in size. No evidence for pulmonary edema. No pleural effusions. No pneumothorax. Prior cholecystectomy. The the lungs are clear. IMPRESSION: No acute process. Echocardiogram Date: 06/20/18 EF 55-60% Normal LV wall motion Mild cLVH Mild thickening of anterior mitral valve leaflet without prolapse Trace mitral regurgitation EVELYNE 01/10/17 EF 60-65% Mild to moderate thickening of the right coronary aortic valve cusp No obvious vegetation or mobile echodensity visualized Mild atherosclerotic plaque in the descending aorta Stress Test Date: 09/01/20 Pharmacologic MPHR 102% Negative for inducible ischemia Normal LV wall motion Mild cLVH EF 60-64% Grade I diastolic dysfunction No significant valvular pathology
[2022-03-29] MEDS: HYDROmorphone INJ 0.5 MG/0.5 ML SYR IV PRN ×3 (10:30→20:28)
--- NOTE | 2022-03-29 11:11 | Hospitalist Progress Note ---
Date of Service March 29, 2022 Assessment & Plan (1) Pyelonephritis: (2) Right flank pain: (3) S/P ureteral stent placement: (4) Ureteral calculus: Plan: Admitted from 02/23-02/27 with right-sided ureteral stone. Blood culture was positive for E. coli. Was transition to p.o. ciprofloxacin to complete 14-day course. Underwent stent placement on right ureter stent placement on 02/22. Presents to the hospital with right sided flank pain and right CVA tenderness. CT abdomen shows finding concerning for right-sided pyelonephritis. Leukocytosis present Urinalysis suggestive for infection Blood culture no growth till date. Urine culture pending. Plan; Continue on ceftriaxone for now. We will follow-up on urine and blood culture. Urology on board; recommend to continue supportive care. No planned procedure yet given patient has C. difficile infection and concern for UTI. (5) Clostridioides difficile infection: Plan: Was treated for E. coli bacteremia last admission secondary to UTI Was discharged on ciprofloxacin. C. difficile positive on admission. Plan; On vancomycin oral every 6 hours. Total treatment duration of 10 days. Improvement noted in the diarrhea. Continue to monitor. (6) Bipolar 2 disorder, major depressive episode: Plan: Continue home medication (7) Hypothyroidism: Plan: Continue on home levothyroxine (8) GERD (gastroesophageal reflux disease): Plan: On Pepcid Plan Full code DVT prophylaxis Heparin Admission and Anticipated Discharge Date Admission Date: March 28, 2022 Subjective Patient seen and examined at bedside. She reports that her right flank pain has improved compared to yesterday. She did not have any diarrhea overnight; ports that her stools are more formed. Afebrile; vital stable. Review of Systems Review of Systems: All systems reviewed & are unremarkable except as noted in Subjective Physical Exam Physical Exam: Constitutional: WD/WN, vitals as above, NAD, sitting up in bed, pleasant, conversing easily Respiratory: normal respiratory effort, lungs clear to auscultation, no wheeze, rales, rhonchi. Normal insp/exp effort, no accessory muscle use Cardiovascular: RRR, no murmur, no edema Vessels: no JVD or carotid bruit Chest: normal inspection of chest Abdomen: Abdomen slightly tender on right lower quadrant. Soft. Musculoskeletal: no cyanosis or clubbing, extremities motor strength 5/5 Skin: no rashes, warm and dry normal turgor Neurologic: PERRL, EOMI, accommodation nl, no face palsy, no dysarthria CN's II- XI intact bilaterally and moves all extremities Psychiatric: A+Ox3, euthymic affect Lymphatic: no cervical or axillary lymphadenopathy : deferred Results & Data Results & Data ([facility]) Vital Signs (Past 12 Hours) Vital Signs Temp Pulse Pulse Resp BP Pulse Ox Pulse Ox 03/29/22 10:49 03/29/22 07:30 36.7 C 80 16 129/80 98 03/29/22 02:39 85 95 03/29/22 01:12 87 97 O2 Del Method O2 Del Method 03/29/22 10:49 Room Air 03/29/22 07:30 Room Air 03/29/22 02:39 Room Air 03/29/22 01:12 Room Air
[2022-03-29] MEDS: lisinopril 5 MG TAB PO SCH (11:29)
[2022-03-29] MEDS: HEPARIN SOD 5,000 UNIT/0.5 ML VIAL SQ SCH ×2 (14:41→20:23)
[2022-03-29] MEDS: FAMOTIDINE 20 MG TAB PO SCH (20:17)
[2022-03-29] MEDS: PRAZOSIN HCL 1 MG CAP PO SCH (20:21)
[2022-03-29] MEDS: AMITRIPTYLINE HCL 50 MG TAB PO SCH (20:22)
[2022-03-29] MEDS: hydrOXYzine HCl 25 MG TAB PO SCH (20:22)
[2022-03-30] MEDS: VANCOMYCIN HCL 125 MG/2.5ML SOLN PO SCH ×4 (00:36→17:06)
[2022-03-30] MEDS: RASPBERRY SYRUP 5 ML UDP PO SCH ×4 (00:36→17:06)
[2022-03-30] MEDS: HEPARIN SOD 5,000 UNIT/0.5 ML VIAL SQ SCH ×3 (05:42→21:44)
[2022-03-30] MEDS: LEVOTHYROXINE SODIUM 50 MCG TABLET PO SCH (05:42)
[2022-03-30 06:41] LABS: Eosinophils # (auto) 0.65 K/uL (0-0.50); Eosinophils % (auto) 6.8 %; Hematocrit (blood only) 30.1 % (34.1-44.9); Hemoglobin 9.7 g/dl (12.0-16.0); Immature Granulocytes # (auto) 0.23 K/uL (0.00-0.02); Immature Granulocytes % (auto) 2.4 %; Lymphocytes # (auto) 2.56 K/uL (1.2-3.4); Lymphocytes % (auto) 26.6 %; Mean Corpuscular Hemoglobin 29.2 pg (25.0-34.0); Mean Corpuscular Hgb Conc 32.2 g/dL (32.0-36.0); Mean Corpuscular Volume 90.7 fL (80.0-100.0); Mean Platelet Volume 8.7 fL (9.4-12.3); Monocytes # (auto) 0.69 K/uL (0.24-0.82); Monocytes % (auto) 7.2 %; Neutrophils # (auto) 5.38 K/uL (1.4-6.5); Platelet Count 376 K/uL (130-400); RDW Coefficient of Variation 13.6 % (11.5-14.5); RDW Standard Deviation 44.8 fL (36.4-46.3); Red Blood Count 3.32 M/uL (3.93-5.22); White Blood Count 9.61 K/ul (4.8-10.8)
[2022-03-30 07:07] LABS: Anion Gap 6 (3-11); BUN Creatinine Ratio 9.4 (10-20); Blood Urea Nitrogen 10 mg/dl (6-23); Calcium 8.5 mg/dl (8.5-10.1); Carbon Dioxide 22 mmol/L (21-32); Chloride 111 mmol/L (98-107); Creatinine Clr Calc Pharmacy 69.7 ml/min; Est GFR (African American) 71.4 ml/min; Est GFR (Non-African American) 61.6 ml/min; Glucose 87 mg/dl (70-99(Fasting)); Sodium 139 mmol/L (136-145)
--- NOTE | 2022-03-30 09:43 | Urology Progress Note ---
Date of Service March 30, 2022 Assessment & Plan (1) Pyelonephritis: (2) Ureteral calculus: (3) Right flank pain: (4) S/P ureteral stent placement: Plan 47yo F s/p right stent placement for an infected stone on 02/22/2022 who presented with intractable right flank pain and admitted with suspected UTI/Pyelo. CT a/p on arrival demonstrated the right ureteral stent to be in appropriate position, small stone fragments in the distal ureter along the course of the stent, no hydronephrosis, and nonspecific urothelial thickening/enhancement suggestive of superimposed UTI/pyelonephritis. A single nonobstructing left renal calculus was also noted. Urinalysis was concerning for infection. Also found to have C. difficile. -Afebrile and hemodynamically stable. -Labs reviewed-White count improved to 9.61, creatinine 1.06. -Urine and blood cultures are pending, continues on IV Ceftriaxone. Also on oral Vanco for Cdiff infection. -Voiding spontaneously, continue to monitor. Bladder scan prn. -Since her stent is in appropriate position and she was found to have a C. difficile infection as well as concern for UTI, no plan for urological intervention at this time -Will need to complete duration of treatment for C. difficile infection and ensure resolution prior to considering stone treatment. -We discussed that we may need to arrange outpatient follow-up to set up stone treatment after her infections have cleared depending on her hospital course. She verbalized understanding. -Continue supportive care and prn pain management. -Continue antibiotics and tailor as culture data becomes available. -Urology will follow peripherally. Admission and Anticipated Discharge Date Admission Date: March 28, 2022 Subjective Patient examined at bedside this AM. Awake, resting in bed on arrival. No acute distress. Right flank pain improving. No fevers or chills. Denies nausea or vomiting. Voiding without issue. Some hematuria and dysuria. Feels she is emptying her bladder well. On isolation for C. difficile. Review of Systems Constitutional: as per Subjective / HPI Gastrointestinal: as per Subjective / HPI Genitourinary: as per Subjective / HPI Physical Exam Constitutional: no acute distress Respiratory: no respiratory distress and no labored breathing Neurologic: awake Psychiatric: Orientation: alert and oriented x 3 Results & Data ([facility] [place]) Vital Signs (Past 12 Hours) Vital Signs Temp Pulse Resp BP Pulse Ox O2 Del Method 12/16/22 07:13 36.6 C 78 18 115/73 96 Room Air PG Care Time/CCT Total # of Minutes Spent Total Time Spent with Patient: Total time spent is greater than 50% in coordination of care (as documented) at patient's floor/unit and/or counseling patient: Coding Level of Care Code 04569 Subseq Hosp Care Lvl 2 Diagnoses Pyelonephritis N12 Ureteral calculus N20.1 Right flank pain R10.9 S/P ureteral stent placement Z96.0
[2022-03-30] MEDS: CYCLOBENZAPRINE HCL 10 MG TAB PO SCH ×2 (09:58→21:41)
[2022-03-30] MEDS: ADVANCED PROBIOTIC 1250 MG CAPSULE PO SCH (09:58)
[2022-03-30] MEDS: FLUTICASONE/VILANTEROL 200/25MCG 14 PUFFS/INHALER INH SCH (09:59)
[2022-03-30] MEDS: CETIRIZINE HCL 10 MG TABLET PO SCH (09:59)
[2022-03-30] MEDS: DOCUSATE SODIUM 100 MG CAP PO SCH (09:59)
[2022-03-30] MEDS: FERROUS SULFATE 325 MG TAB PO SCH (09:59)
[2022-03-30] MEDS: LORazepam 0.5 MG TAB PO PRN (09:59)
[2022-03-30] MEDS: lamoTRIgine 100 MG TAB PO SCH (10:03)
[2022-03-30] MEDS: TOPIRAMATE 100 MG TAB PO SCH ×2 (10:03→21:40)
[2022-03-30] MEDS: cefTRIAXone SODIUM 2,000 MG in DEXTROSE 5% 50 ML IV SCH (10:03)
[2022-03-30] MEDS: MAGNESIUM OXIDE 400 MG TAB PO SCH (10:04)
[2022-03-30] MEDS: DICYCLOMINE HCL 20 MG TAB PO SCH ×2 (10:04→21:43)
[2022-03-30] MEDS: DULoxetine HCL 60 MG CAP PO SCH (10:05)
[2022-03-30] MEDS: GABAPENTIN 800 MG TAB PO SCH ×3 (10:05→21:43)
[2022-03-30] MEDS: VITAMIN B COMPLEX TAB PO SCH (10:05)
[2022-03-30] MEDS: lisinopril 5 MG TAB PO SCH (10:05)
[2022-03-30] MEDS: CYANOCOBALAMIN (B-12) 500 MCG TABLET PO SCH (10:05)
[2022-03-30] MEDS: TAMSULOSIN HCL 0.4 MG CAP PO SCH (10:06)
[2022-03-30] MEDS: PANTOprazole 40 MG TAB PO SCH (10:06)
[2022-03-30] MEDS: GABAPENTIN 300 MG CAP PO SCH ×3 (10:06→21:43)
[2022-03-30] MEDS: HYDROmorphone INJ 0.5 MG/0.5 ML SYR IV PRN ×3 (13:39→22:47)
--- NOTE | 2022-03-30 16:36 | Hospitalist Progress Note ---
Date of Service March 30, 2022 Assessment & Plan (1) Pyelonephritis: (2) Right flank pain: (3) S/P ureteral stent placement: (4) Ureteral calculus: Plan: Underwent stent placement on right ureter stent placement on 02/22. Admitted from 02/23-02/27 with right-sided ureteral stone Found to have E. coli bacteremia, discharged on 14-day course of ciprofloxacin Presents to the hospital with right sided flank pain and right CVA tenderness. CT abdomen shows finding concerning for right-sided pyelonephritis. Urine culture: Staph aureus, sensitivities Lactobacillus Blood cultures: Negative Symptoms improving, afebrile Currently on ceftriaxone IV day #3 Follow-up sensitivities for staph aureus Urology on board; recommend to continue supportive care. No planned procedure yet given patient has C. difficile infection and concern for UTI. (5) Clostridioides difficile infection: Plan: Was treated for E. coli bacteremia last admission secondary to UTI Was discharged on ciprofloxacin. C. difficile positive on admission. Diarrhea resolved Still having some abdominal discomfort intermittently On vancomycin oral every 6 hours Day 3 out of 10 (6) Bipolar 2 disorder, major depressive episode: Plan: Continue home medication (7) Hypothyroidism: Plan: Continue on home levothyroxine (8) GERD (gastroesophageal reflux disease): Plan: On Pepcid Plan Full code DVT prophylaxis Heparin Admission and Anticipated Discharge Date Admission Date: March 28, 2022 Subjective Follow-up for pyelonephritis, in the setting of ureteral stent, etc. Seen sitting up in bed, comfortable, not in distress In good spirits States she is feeling improved but still having right-sided flank pain No fevers or chills, nausea vomiting Still having some intermittent generalized cramping, but no diarrhea No other symptoms Review of Systems Review of Systems: all noted and negative except for above Physical Exam Physical Exam: General- oriented x 3, not in distress, speaks in sentences with no effort or accessory muscle use Eyes- anicteric Neck- no JVD Lungs- clear breath sounds bilaterally, no crackles or wheezing Heart- normal rate, regular rhythm; no murmurs Abdomen- normal bowel sounds, nondistended, soft, mild right-sided tenderness Mild right CVA tenderness Extremities- no pretibial edema, no calf tenderness Neuro- alert, oriented x 3; no gross focal neurologic deficits Skin- warm & dry Results & Data Results & Data ([place]) Vital Signs (Past 12 Hours) Vital Signs Temp Pulse Resp BP Pulse Ox O2 Del Method 03/30/22 07:13 36.6 C 78 18 115/73 96 Room Air all noted and reviewed including below
[2022-03-30] MEDS: ONDANSETRON INJ 2 MG/ML 2 ML VIAL IV PRN (21:37)
[2022-03-30] MEDS: hydrOXYzine HCl 25 MG TAB PO SCH (21:37)
[2022-03-30] MEDS: PRAZOSIN HCL 1 MG CAP PO SCH (21:41)
[2022-03-30] MEDS: AMITRIPTYLINE HCL 50 MG TAB PO SCH (21:41)
[2022-03-30] MEDS: FAMOTIDINE 20 MG TAB PO SCH (21:44)
[2022-03-31] MEDS: VANCOMYCIN HCL 125 MG/2.5ML SOLN PO SCH ×4 (00:14→18:24)
[2022-03-31] MEDS: RASPBERRY SYRUP 5 ML UDP PO SCH ×4 (00:14→18:24)
[2022-03-31] MEDS: LEVOTHYROXINE SODIUM 50 MCG TABLET PO SCH (06:14)
[2022-03-31] MEDS: HEPARIN SOD 5,000 UNIT/0.5 ML VIAL SQ SCH ×3 (06:15→21:06)
[2022-03-31 08:02] LABS: Hemoglobin 9.9 g/dl (12.0-16.0); Mean Corpuscular Hemoglobin 28.9 pg (25.0-34.0); Mean Corpuscular Hgb Conc 31.9 g/dL (32.0-36.0); Mean Corpuscular Volume 90.4 fL (80.0-100.0); Mean Platelet Volume 8.4 fL (9.4-12.3); Nucleated RBC # (auto) 0.02 K/uL (0-0); Nucleated RBC % (auto) 0.2 %; Platelet Count 355 K/uL (130-400); RDW Coefficient of Variation 13.7 % (11.5-14.5); RDW Standard Deviation 45.6 fL (36.4-46.3); Red Blood Count 3.43 M/uL (3.93-5.22); White Blood Count 9.77 K/ul (4.8-10.8)
[2022-03-31] MEDS: cefTRIAXone SODIUM 2,000 MG in DEXTROSE 5% 50 ML IV SCH (08:34)
[2022-03-31] MEDS: ADVANCED PROBIOTIC 1250 MG CAPSULE PO SCH (08:35)
[2022-03-31] MEDS: CYCLOBENZAPRINE HCL 10 MG TAB PO SCH ×2 (08:35→21:00)
[2022-03-31] MEDS: LORazepam 0.5 MG TAB PO PRN (08:35)
[2022-03-31] MEDS: DOCUSATE SODIUM 100 MG CAP PO SCH (08:36)
[2022-03-31] MEDS: FLUTICASONE/VILANTEROL 200/25MCG 14 PUFFS/INHALER INH SCH (08:36)
[2022-03-31] MEDS: PANTOprazole 40 MG TAB PO SCH (08:36)
[2022-03-31] MEDS: DULoxetine HCL 60 MG CAP PO SCH (08:36)
[2022-03-31] MEDS: DICYCLOMINE HCL 20 MG TAB PO SCH ×2 (08:37→21:01)
[2022-03-31] MEDS: GABAPENTIN 300 MG CAP PO SCH ×3 (08:37→21:02)
[2022-03-31] MEDS: FERROUS SULFATE 325 MG TAB PO SCH (08:37)
[2022-03-31] MEDS: GABAPENTIN 800 MG TAB PO SCH ×3 (08:37→21:02)
[2022-03-31] MEDS: CETIRIZINE HCL 10 MG TABLET PO SCH (08:38)
[2022-03-31] MEDS: lisinopril 5 MG TAB PO SCH (08:38)
[2022-03-31] MEDS: CYANOCOBALAMIN (B-12) 500 MCG TABLET PO SCH (08:38)
[2022-03-31] MEDS: TAMSULOSIN HCL 0.4 MG CAP PO SCH (08:38)
[2022-03-31] MEDS: TOPIRAMATE 100 MG TAB PO SCH ×2 (08:38→21:04)
[2022-03-31] MEDS: MAGNESIUM OXIDE 400 MG TAB PO SCH (08:38)
[2022-03-31] MEDS: lamoTRIgine 100 MG TAB PO SCH (08:38)
[2022-03-31] MEDS: VITAMIN B COMPLEX TAB PO SCH (08:38)
--- NOTE | 2022-03-31 14:04 | Hospitalist Progress Note ---
Date of Service March 31, 2022 Assessment & Plan (1) Pyelonephritis: Plan: Rocephin was given pending cultures for last 3 days. Urine culture is growing RESIDENTIAL THERAPIST that is oxacillin resistant. Patient has ongoing flank pain. In an effort to improve this, will switch Rocephin to Vancomycin now and obtain and ID consult. The question will be surrounding the best oral antibiotic for her with this culture result and clinical picture, and if it would be preferred to have definitive stone management or stent exchange/removal while in the hospital. (2) Right flank pain: Plan: Ongoing right flank pain. Adjusting abx as above. Will stop hydromorphone given the h/o gastroparesis. This is also highly addictive and inappropriate for this level of pain. Will go with PO Ibuprofen or Tylenol , added pyridium scheduled, and will use B&O supp PRN severe pain. Will touch base with Urology to discuss further in am. (3) S/P ureteral stent placement: Plan: on 02/22/22 (4) Ureteral calculus: Plan: Underwent stent placement on right ureter stent placement on 02/22. Admitted from 02/23-02/27 with right-sided ureteral stone Found to have E. coli bacteremia, discharged on 14-day course of ciprofloxacin Presents to the hospital with right sided flank pain and right CVA tenderness. CT abdomen shows finding concerning for right-sided pyelonephritis. Urine culture: Staph aureus, sensitivities Lactobacillus Blood cultures: Negative Symptoms improving, afebrile Currently on ceftriaxone IV day #3-changed to Vanc on 03/31 Urology on board; recommend to continue supportive care. No planned procedure yet given patient has C. difficile infection and concern for UTI. (5) Clostridioides difficile infection: Plan: Was treated for E. coli bacteremia last admission secondary to UTI Was discharged on ciprofloxacin. C. difficile positive on admission. Diarrhea resolved but reports 3 loose stools again today Still having some abdominal discomfort intermittently On vancomycin oral every 6 hours x 10 days with extension beyond current antibiotic course for pyelonephritis. (6) Bipolar 2 disorder, major depressive episode: Plan: chronic, seeking intravenous medications which is not recommended unless absolutely needed for a medical reason. Continue home medication (7) Hypothyroidism: Plan: chronic, controlled, Continue on home levothyroxine (8) Chronic back pain: Plan: cont home gabapentin (9) Gastroparesis: Plan: diet controlled, cont behavior modifications and avoid narcotics. DVT proph: Heparin Full Code Dispo-pending urology and ID thoughts. Dacia Zamora DO [facility] Hospitalist Admission and Anticipated Discharge Date Admission Date: March 28, 2022 Subjective Follow-up for pyelonephritis, in the setting of ureteral stent The patient was readmitted on 03/28/22 with pyelonephritis with acute kidney injury. She had recently been admitted in early February from an infected right kidney stone and underwent an emergent cystoscopy by Dr. Hayes on 02/22/2022. At that time she was hypotensive tachycardic and had a leukocytosis of 27,000. E. coli grew in her urine and she completed a 2-week course of antibiotics. She represented reporting ongoing abdominal pain for 2 weeks that was felt related to her ureteral stent. Intermittent dysuria was reported which is not reported today. She also had diarrhea for approximately a week and a half. She was found to have a C. difficile infection and was placed on oral vancomycin. Additionally, a CT scan suggested pyelonephritis. Imaging taken together with the clinical picture suggested an acute pyelonephritis. She was placed on broad-spectrum antibiotics and urology was reconsulted. Given the improvement on conservative management a stent exchange or stent removal was not recommended by urology. At this time they are wanting to wait until she completes the course of antibiotics before definitive stone management as outpatient. She continues to have right flank pain and has been utilizing intravenous hydromorphone. In the setting of gastroparesis and naivety to narcotics, this is not recommended to be continued. I discussed with the patient we will be switching over to oral medications as needed including her home gabapentin. She told me she "prefers the IV stuff when I come in here." She asked for Toradol, however she had just recently gotten intravenous hydromorphone. We discussed that if she had severe unrelenting pain we may consider an additional intravenous alternative. Pyridium was added and she continues on Tylenol as needed pain ibuprofen as needed pain or for any severe breakthrough BNO suppository. She reports that she is eating and has had 3 bowel movements today that are loose but not watery. There is no blood present. She has remained afebrile since admission Review of Systems Review of Systems: All systems reviewed negative except as indicated above. Physical Exam Physical Exam: CONSTITUTIONAL: morbid obesity, vitals as above, generally well-appearing, NAD, sitting in bedside chair. EYES: PERRL, normal conjunctivae, no scleral icterus ENT: external ear and nose normal, MMM NECK: trachea midline RESPIRATORY: clear to auscultation bilaterally, no crackles, rales or wheezes, normal respiratory effort CARDIOVASCULAR: regular rate and rhythm, S1 and 2 heard without murmurs, gallops or rubs, no JVD, no peripheral edema CHEST: inspection of chest was normal GASTROINTESTINAL: soft, TTP in RLQ, +CVA tenderness to R flank, nondistended and no guarding. MUSCULOSKELETAL: strength 5/5 throughout, head is normocephalic and atraumatic SKIN: warm and dry NEUROLOGIC: CN 2-12 grossly intact, no sensory deficit, normal cognition, normal speech, no tremor PSYCHIATRIC: alert cooperative and oriented to person, place and time. Euthymic mood, makes good eye contact, language grossly intact, recent and remote memory grossly intact. Results & Data Results & Data ([facility]) Laboratory Results Short CBC 03/31/22 Range/Units 07:51 WBC 9.77 (4.8-10.8) K/ul Hgb 9.9 L (12.0-16.0) g/dl Hct 31.0 L (34.1-44.9) % Plt Count 355 (130-400) K/uL Medications Administered Current Inpatient Medications Acetaminophen (Acetaminophen 325 Mg Tab) 650 mg PO Q4H PRN PRN Reason: pain/fever Stop: 04/27/22 01:54 Last Admin: 03/28/22 04:25 Dose: 650 mg Albuterol (Albuterol Hfa 8 Gm Inhaler) 1 puffs INH QID PRN PRN Reason: Wheezing Stop: 04/27/22 01:54 Albuterol (Albuterol 0.083% Nebu Soln 3 Ml Vial) 2.5 mg NEB Q4 PRN; Protocol PRN Reason: Shortness Of Breath Or Wheezing Stop: 04/27/22 01:54 Amitriptyline HCl (Amitriptyline Hcl 50 Mg Tab) 50 mg PO HS [facility] Stop: 04/27/22 20:59 Last Admin: 03/30/22 21:41 Dose: 50 mg Cetirizine HCl (Cetirizine Hcl 10 Mg Tablet) 10 mg PO QAM [facility] Stop: 04/27/22 08:59 Last Admin: 03/31/22 08:38 Dose: 10 mg Cyanocobalamin (Cyanocobalamin (B-12) 500 Mcg Tablet) 1,000 mcg PO QAM [facility] Stop: 04/27/22 08:59 Last Admin: 03/31/22 08:38 Dose: 1,000 mcg Cyclobenzaprine HCl (Cyclobenzaprine Hcl 10 Mg Tab) 10 mg PO BID [facility] Stop: 04/27/22 08:59 Last Admin: 03/31/22 08:35 Dose: 10 mg Dicyclomine HCl (Dicyclomine Hcl 20 Mg Tab) 20 mg PO BID [facility] Stop: 04/27/22 08:59 Last Admin: 03/31/22 08:37 Dose: 20 mg Docusate Sodium (Docusate Sodium 100 Mg Cap) 100 mg PO QAM [facility] Stop: 04/27/22 08:59 Last Admin: 03/31/22 08:36 Dose: 100 mg Duloxetine HCl (Duloxetine Hcl 60 Mg Cap) 60 mg PO QAM [facility] Stop: 04/27/22 08:59 Last Admin: 03/31/22 08:36 Dose: 60 mg Famotidine (Famotidine 20 Mg Tab) 20 mg PO HS [facility] Stop: 04/27/22 20:59 Last Admin: 03/30/22 21:44 Dose: 20 mg Ferrous Sulfate (Ferrous Sulfate 325 Mg Tab) 325 mg PO QAM [facility] Stop: 04/27/22 08:59 Last Admin: 03/31/22 08:37 Dose: 325 mg Fluticasone Propionate (Fluticasone Propionate Na Spr 16 Gm Btl) 2 sprays NA DAILY PRN PRN Reason: Allergy Symptoms Stop: 04/27/22 01:54 Fluticasone/Vilanterol (Fluticasone/Vilanterol 200/25mcg 14 Puffs/Inhaler) 1 puffs INH QAM [facility] Stop: 04/27/22 08:59 Last Admin: 03/31/22 08:36 Dose: 1 puffs Gabapentin (Gabapentin 800 Mg Tab) 800 mg PO TID [facility] Stop: 04/27/22 08:59 Last Admin: 03/31/22 08:37 Dose: 800 mg Gabapentin (Gabapentin 300 Mg Cap) 300 mg PO TID [facility] Stop: 04/27/22 08:59 Last Admin: 03/31/22 08:37 Dose: 300 mg Heparin Sodium (Porcine) (Heparin Sod 5,000 Unit/0.5 Ml Vial) 5,000 units SQ Q8 [facility] Stop: 04/27/22 13:59 Last Admin: 03/31/22 06:15 Dose: 5,000 units Hydromorphone HCl (Hydromorphone Inj 0.5 Mg/0.5 Ml Syr) 0.5 mg IV Q4H PRN PRN Reason: Pain Stop: 04/11/22 01:54 Last Admin: 03/30/22 22:47 Dose: 0.5 mg Hydroxyzine HCl (Hydroxyzine Hcl 25 Mg Tab) 50 mg PO HS [facility] Stop: 04/27/22 20:59 Last Admin: 03/30/22 21:37 Dose: 50 mg Ceftriaxone Sodium 2,000 mg/ (Dextrose) 70 mls @ 100 mls/hr IV Q24H [facility]; Protocol Stop: 04/07/22 07:59 Last Infusion: 03/31/22 09:23 Dose: Infused Lactobacillus Acidophilus (Advanced Probiotic 1250 Mg Capsule) 2 cap PO QAM [facility] Stop: 04/27/22 08:59 Last Admin: 03/31/22 08:35 Dose: 2 cap Lamotrigine (Lamotrigine 100 Mg Tab) 200 mg PO QAM [facility] Stop: 04/27/22 08:59 Last Admin: 03/31/22 08:38 Dose: 200 mg Levothyroxine Sodium (Levothyroxine Sodium 50 Mcg Tablet) 50 mcg PO DAILYBB [facility] Stop: 04/27/22 06:29 Last Admin: 03/31/22 06:14 Dose: 50 mcg Lisinopril (Lisinopril 5 Mg Tab) 5 mg PO QAM [facility] Stop: 04/27/22 08:59 Last Admin: 03/31/22 08:38 Dose: 5 mg Lorazepam (Lorazepam 0.5 Mg Tab) 0.5 mg PO TID PRN PRN Reason: Anxiety Stop: 04/27/22 01:54 Last Admin: 03/31/22 08:35 Dose: 0.5 mg Magnesium Oxide (Magnesium Oxide 400 Mg Tab) [facility] Stop: 04/27/22 08:59 Last Admin: 03/31/22 08:38 Dose: 400 mg Ondansetron HCl (Ondansetron Inj 2 Mg/Ml 2 Ml Vial) 4 mg IV Q6H PRN PRN Reason: Nausea Stop: 04/27/22 01:54 Last Admin: 03/30/22 21:37 Dose: 4 mg Pantoprazole Sodium (Pantoprazole 40 Mg Tab) 40 mg PO QAM [facility] Stop: 04/27/22 08:59 Last Admin: 03/31/22 08:36 Dose: 40 mg Prazosin HCl (Prazosin Hcl 1 Mg Cap) 4 mg PO HS [facility] Stop: 04/27/22 20:59 Last Admin: 03/30/22 21:41 Dose: 4 mg Raspberry (Raspberry Syrup 5 Ml Udp) 5 ml PO Q6 [facility] Stop: 04/07/22 11:59 Last Admin: 03/31/22 13:20 Dose: 5 ml Rizatriptan Benzoate (Rizatriptan Benzoate 10 Mg Tab) 10 mg PO UD PRN PRN Reason: Migraine Headache Stop: 04/27/22 01:54 Sennosides (Senna 8.6 Mg Tab) 17.2 mg PO QAM PRN PRN Reason: constipation Stop: 04/27/22 01:54 Last Admin: 03/30/22 09:59 Dose: 17.2 mg Tamsulosin HCl (Tamsulosin Hcl 0.4 Mg Cap) 0.4 mg PO DAILY [facility] Stop: 04/27/22 08:59 Last Admin: 03/31/22 08:38 Dose: 0.4 mg Topiramate (Topiramate 100 Mg Tab) 200 mg PO BID [facility] Stop: 04/27/22 08:59 Last Admin: 03/31/22 08:38 Dose: 200 mg Vancomycin HCl (Vancomycin Hcl 125 Mg/2.5ml Soln) 125 mg PO Q6 [facility] Stop: 04/07/22 11:59 Last Admin: 03/31/22 13:20 Dose: 125 mg Vitamin B Complex (Vitamin B Complex Tab) 1 tab PO DAILY [facility] Stop: 04/27/22 08:59 Last Admin: 03/31/22 08:38 Dose: 1 tab
[2022-03-31] MEDS: HYDROmorphone INJ 0.5 MG/0.5 ML SYR IV PRN (14:21)
[2022-03-31] MEDS ORDERED: BELLADONNA/OPIUM SUPP 60 MG SUPP PR PRN (15:10)
[2022-03-31] MEDS ORDERED: VANCOMYCIN HCL 1,750 MG in SODIUM CHLORIDE 0.9% 500 ML IV ONE (16:42)
[2022-03-31] MEDS ORDERED: VANCOMYCIN CONSULT ACTIVE PRN (16:42)
[2022-03-31] MEDS ORDERED: VANCOMYCIN HCL 1,250 MG in SODIUM CHLORIDE 0.9% 500 ML IV SCH (16:45)
[2022-03-31] MEDS ORDERED: VANCOMYCIN HCL 2,000 MG in SODIUM CHLORIDE 0.9% 500 ML IV ONE (17:15)
[2022-03-31] MEDS ORDERED: SODIUM CHLORIDE 0.9% 1000ML 1,000 ML IV ONE (20:03)
[2022-03-31] MEDS: AMITRIPTYLINE HCL 50 MG TAB PO SCH (21:00)
[2022-03-31] MEDS: FAMOTIDINE 20 MG TAB PO SCH (21:01)
[2022-03-31] MEDS: hydrOXYzine HCl 25 MG TAB PO SCH (21:03)
[2022-03-31] MEDS: PRAZOSIN HCL 1 MG CAP PO SCH (21:04)
[2022-03-31] MEDS: PHENAZOPYRIDINE HCL 200 MG TAB PO SCH (21:06)
[2022-03-31] MEDS: KETOROLAC TROMETHAMINE 15 MG/ML VIAL IV PRN (21:07)
[2022-04-01] MEDS: RASPBERRY SYRUP 5 ML UDP PO SCH ×5 (00:09→23:49)
[2022-04-01] MEDS: VANCOMYCIN HCL 125 MG/2.5ML SOLN PO SCH ×5 (00:09→23:49)
[2022-04-01] MEDS: VANCOMYCIN HCL 1,000 MG in SODIUM CHLORIDE 0.9% 250 ML IV SCH ×2 (06:01→18:02)
[2022-04-01] MEDS: HEPARIN SOD 5,000 UNIT/0.5 ML VIAL SQ SCH ×3 (06:04→21:38)
[2022-04-01] MEDS: LEVOTHYROXINE SODIUM 50 MCG TABLET PO SCH (06:04)
[2022-04-01 07:30] LABS: Creatinine Clr Calc Pharmacy 80.3 ml/min; Est GFR (African American) 84.7 ml/min; Est GFR (Non-African American) 73.1 ml/min
[2022-04-01] MEDS: CYANOCOBALAMIN (B-12) 500 MCG TABLET PO SCH (09:05)
[2022-04-01] MEDS: FLUTICASONE/VILANTEROL 200/25MCG 14 PUFFS/INHALER INH SCH (09:05)
[2022-04-01] MEDS: CETIRIZINE HCL 10 MG TABLET PO SCH (09:05)
[2022-04-01] MEDS: ADVANCED PROBIOTIC 1250 MG CAPSULE PO SCH (09:05)
[2022-04-01] MEDS: MAGNESIUM OXIDE 400 MG TAB PO SCH (09:05)
[2022-04-01] MEDS: TAMSULOSIN HCL 0.4 MG CAP PO SCH (09:05)
[2022-04-01] MEDS: PANTOprazole 40 MG TAB PO SCH (09:06)
[2022-04-01] MEDS: GABAPENTIN 800 MG TAB PO SCH ×3 (09:06→21:34)
[2022-04-01] MEDS: VITAMIN B COMPLEX TAB PO SCH (09:06)
[2022-04-01] MEDS: DICYCLOMINE HCL 20 MG TAB PO SCH ×2 (09:06→21:33)
[2022-04-01] MEDS: GABAPENTIN 300 MG CAP PO SCH ×3 (09:06→21:35)
[2022-04-01] MEDS: FERROUS SULFATE 325 MG TAB PO SCH (09:06)
[2022-04-01] MEDS: CYCLOBENZAPRINE HCL 10 MG TAB PO SCH ×2 (09:06→21:33)
[2022-04-01] MEDS: TOPIRAMATE 100 MG TAB PO SCH ×2 (09:06→21:37)
[2022-04-01] MEDS: PHENAZOPYRIDINE HCL 200 MG TAB PO SCH ×3 (09:07→21:36)
[2022-04-01] MEDS: DULoxetine HCL 60 MG CAP PO SCH (09:07)
[2022-04-01] MEDS: lamoTRIgine 100 MG TAB PO SCH (09:07)
[2022-04-01] MEDS: DOCUSATE SODIUM 100 MG CAP PO SCH (09:07)
[2022-04-01] MEDS: lisinopril 5 MG TAB PO SCH (09:07)
[2022-04-01] MEDS: KETOROLAC TROMETHAMINE 15 MG/ML VIAL IV PRN (10:57)
--- NOTE | 2022-04-01 11:45 | Pharmacy Report ---
Pharmacy PK ABX Note - Date of Service April 01, 2022 - Assessment and Plan Assessment * 47 year old F receiving vancomycin IV and po for treatment of oxacillin- resistant coag negative Staph pyelonephritis and C. diff, respectively. * Recent fluoroquinolone use for E. coli bacteremia may have contributed to current C. diff episode Plan Vancomycin * 1000 mg IV every 12 hours * Regimen is predicted to achieve target AUC/ROSARIO of 400-600 mg/L.hr * Trough level ordered for: 04/02 @ 0530 Pharmacy will continue to follow and will adjust dose/frequency as necessary. Thank you. Pharmacy has transitioned to AUC monitoring for vancomycin. AUC/ROSARIO is the preferred PK/PD target and is associated with decreased risk of nephrotoxicity compared to traditional trough targets.
--- NOTE | 2022-04-01 13:24 | Hospitalist Progress Note ---
Date of Service April 01, 2022 Assessment & Plan (1) Pyelonephritis: Plan: Suspect she doesn't have pyelonephritis at this point......CT appeared consistent with this and she did have a leukocytosis. Rocephin was given pending cultures for last 3 days. Urine culture is growing FLAT SURFACER that is oxacillin resistant, however, UA appeared contaminated. With recent stent pain and the description of pain, this is most consistent with ureteral stent discomfort from stent placed 02/22/22. Although abx were changed to vanc to cover possible resistant pathogen, I am suspecting this was a contaminant. Will continue current management until she is seen by ID tomorrow. Patient has ongoing flank pain per nurse but has not tried PO meds and is demonstrating drug seeking behavior. Pain is not severe and nurse confirms that patient is upset because her dilaudid was taken away. At this point, intravenous pain medications are not appropriate. (2) Right flank pain: Plan: Suspect this is related to ongoing stent pain. Discussed this with Urology who agrees. (3) S/P ureteral stent placement: Plan: on 02/22/22 (4) Ureteral calculus: Plan: Underwent stent placement on right ureter stent placement on 02/22. Admitted from 02/23-02/27 with right-sided ureteral stone Found to have E. coli bacteremia, discharged on 14-day course of ciprofloxacin Presents to the hospital with right sided flank pain and right CVA tenderness. CT abdomen shows finding concerning for right-sided pyelonephritis initially Urine culture: Staph aureus, sensitivities Lactobacillus Blood cultures: Negative Patient remains hemodynamically stable and afebrile. She reports wanting to stay in the hospital until her ureteral stent is removed, however, urology will not do that. No planned procedure until after c-diff infection has been cleared. Currently on ceftriaxone IV day #3-changed to Vanc on 03/31 (5) Clostridioides difficile infection: Plan: Was treated for E. coli bacteremia last admission secondary to UTI Was discharged on ciprofloxacin and completed antibiotic course as outpatient. C. difficile positive on admission. Per RN, patient reported only one semi-formed stool which appears to be an improvement from yesterday. (6) Bipolar 2 disorder, major depressive episode: Plan: chronic, seeking intravenous medications which is not recommended unless absolutely needed. Continue home medication (7) Hypothyroidism: Plan: chronic, controlled, Continue on home levothyroxine (8) Chronic back pain: Plan: cont home gabapentin (9) Gastroparesis: Plan: diet controlled, cont behavior modifications and avoid narcotics. DVT proph: Heparin Full Code Dispo-cont vancomycin pending ID thoughts, if no infection present, she can be discharged home as soon as tomorrow. Dacia Zamora DO [facility] and Anticipated Discharge Date Admission Date: March 28, 2022 Subjective 47 yo F presented with flank and abdominal pain after recent stent a few weeks ago. After reviewing the chart and seeing the patient yesterday, it is very likely that the patient didn't actually have pyelonephritis coming in, and that her WBC count was elevated because of c-diff. Culture results were based off a probable contaminated sample. Discussed this with Urology who agrees this is also likely that she didn't actually have a kidney infection per se. This is an important distinction given she will need antibiotics for an infection and this will extend her vancomycin course and possibly delay her ureteral stent being removed, as Urology doesn't want to remove it with an active c-diff infection. Yesterday we discussed the pain medication and she was asking for only intravenous pain medications. Clinically, this didn't fit her picture as she was sitting there comfortably and tolerating PO, etc. I thoroughly explained why intravenous pain medication was something we should reserve only for emergencies. She then said "can I have IV toradol? I just really want the IV stuff while I'm here." I explained that we would prefer she try the oral medications first and save anything IV for severe pain (or if not tolerating PO). She seemed agreeable, and the rod and tube straightener gave her toradol overnight. When I arrived today she was calmly laying in her bed in no distress. She said she was just resting and when I asked how her pain was she said "I don't want to tel l you." I asked her to repeat and she said "I don't want to see you. Get out of my room." Per primary RN, the patient never told her that she didn't want to see me today. She also states the patient has been eating food without issues and has been up and walking around the room. Review of Systems Review of Systems: Declined Physical Exam Physical Exam: CONSTITUTIONAL: morbid obesity, vitals as above, generally well-appearing, NAD, lying in bed. EYES: declined ENT: external ear and nose normal, MMM NECK: trachea midline RESPIRATORY: declined CARDIOVASCULAR: declined CHEST: declined GASTROINTESTINAL: declined MUSCULOSKELETAL: ambulatory, declined SKIN: declined NEUROLOGIC: declined PSYCHIATRIC: alert uncooperative and appears oriented without confusion, refuses further questioning Results & Data Results & Data ([facility]) Vital Signs (Past 12 Hours) Vital Signs Temp Pulse Resp BP Pulse Ox O2 Del Method 04/01/22 08:13 36.7 C 66 18 136/87 96 Room Air Laboratory Results [facility] 04/01/22 06:17 Creatinine 0.92 Medications Administered Current Inpatient Medications Acetaminophen (Acetaminophen 325 Mg Tab) 650 mg PO Q4H PRN PRN Reason: pain/fever Stop: 04/27/22 01:54 Last Admin: 03/28/22 04:25 Dose: 650 mg Albuterol (Albuterol Hfa 8 Gm Inhaler) 1 puffs INH QID PRN PRN Reason: Wheezing Stop: 04/27/22 01:54 Albuterol (Albuterol 0.083% Nebu Soln 3 Ml Vial) 2.5 mg NEB Q4 PRN; Protocol PRN Reason: Shortness Of Breath Or Wheezing Stop: 04/27/22 01:54 Amitriptyline HCl (Amitriptyline Hcl 50 Mg Tab) 50 mg PO HS [facility] Stop: 04/27/22 20:59 Last Admin: 03/31/22 21:00 Dose: 50 mg Belladonna Alkaloids/Opium (Belladonna/Opium Supp 60 Mg Supp) 60 mg [place] Q24H PRN PRN Reason: sev abdominal or sev back pain Stop: 04/14/22 15:09 Cetirizine HCl (Cetirizine Hcl 10 Mg Tablet) 10 mg PO QAM [facility] Stop: 04/27/22 08:59 Last Admin: 04/01/22 09:05 Dose: 10 mg Cyanocobalamin (Cyanocobalamin (B-12) 500 Mcg Tablet) 1,000 mcg PO QAM [facility] Stop: 04/27/22 08:59 Last Admin: 04/01/22 09:05 Dose: 1,000 mcg Cyclobenzaprine HCl (Cyclobenzaprine Hcl 10 Mg Tab) 10 mg PO BID [facility] Stop: 04/27/22 08:59 Last Admin: 04/01/22 09:06 Dose: 10 mg Dicyclomine HCl (Dicyclomine Hcl 20 Mg Tab) 20 mg PO BID [facility] Stop: 04/27/22 08:59 Last Admin: 04/01/22 09:06 Dose: 20 mg Docusate Sodium (Docusate Sodium 100 Mg Cap) 100 mg PO QAM [facility] Stop: 04/27/22 08:59 Last Admin: 04/01/22 09:07 Dose: Not Given Duloxetine HCl (Duloxetine Hcl 60 Mg Cap) 60 mg PO QAM [facility] Stop: 04/27/22 08:59 Last Admin: 04/01/22 09:07 Dose: 60 mg Famotidine (Famotidine 20 Mg Tab) 20 mg PO HS [facility] Stop: 04/27/22 20:59 Last Admin: 03/31/22 21:01 Dose: 20 mg Ferrous Sulfate (Ferrous Sulfate 325 Mg Tab) 325 mg PO QAM [facility] Stop: 04/27/22 08:59 Last Admin: 04/01/22 09:06 Dose: 325 mg Fluticasone Propionate (Fluticasone Propionate Na Spr 16 Gm Btl) 2 sprays NA DAILY PRN PRN Reason: Allergy Symptoms Stop: 04/27/22 01:54 Fluticasone/Vilanterol (Fluticasone/Vilanterol 200/25mcg 14 Puffs/Inhaler) 1 puffs INH QAM [facility] Stop: 04/27/22 08:59 Last Admin: 04/01/22 09:05 Dose: 1 puffs Gabapentin (Gabapentin 800 Mg Tab) 800 mg PO TID [facility] Stop: 04/27/22 08:59 Last Admin: 04/01/22 09:06 Dose: 800 mg Gabapentin (Gabapentin 300 Mg Cap) 300 mg PO TID [facility] Stop: 04/27/22 08:59 Last Admin: 04/01/22 09:06 Dose: 300 mg Heparin Sodium (Porcine) (Heparin Sod 5,000 Unit/0.5 Ml Vial) 5,000 units SQ Q8 [facility] Stop: 04/27/22 13:59 Last Admin: 04/01/22 06:04 Dose: 5,000 units Hydroxyzine HCl (Hydroxyzine Hcl 25 Mg Tab) 50 mg PO HS [facility] Stop: 04/27/22 20:59 Last Admin: 03/31/22 21:03 Dose: 50 mg Vancomycin HCl 1,000 mg/ (Sodium Chloride) 270 mls @ 200 mls/hr IV Q12H [facility]; Protocol Stop: 04/11/22 05:59 Last Infusion: 04/01/22 07:32 Dose: Infused Ibuprofen (Ibuprofen 800 Mg Tab) 800 mg PO TID PRN PRN Reason: pain/fever Stop: 04/30/22 15:10 Ketorolac Tromethamine (Ketorolac Tromethamine 15 Mg/Ml Vial) 15 mg IV Q6H PRN PRN Reason: Pain Stop: 04/05/22 19:51 Last Admin: 04/01/22 10:57 Dose: 15 mg Lactobacillus Acidophilus (Advanced Probiotic 1250 Mg Capsule) [address] [facility] Stop: 04/27/22 08:59 Last Admin: 04/01/22 09:05 Dose: 2 cap Lamotrigine (Lamotrigine 100 Mg Tab) [address] [facility] Stop: 04/27/22 08:59 Last Admin: 04/01/22 09:07 Dose: 200 mg Levothyroxine Sodium (Levothyroxine Sodium 50 Mcg Tablet) [facility] Stop: 04/27/22 06:29 Last Admin: 04/01/22 06:04 Dose: 50 mcg Lisinopril (Lisinopril 5 Mg Tab) [address] [facility] Stop: 04/27/22 08:59 Last Admin: 04/01/22 09:07 Dose: 5 mg Magnesium Oxide (Magnesium Oxide 400 Mg Tab) [address] [facility] Stop: 04/27/22 08:59 Last Admin: 04/01/22 09:05 Dose: 400 mg Miscellaneous Information (Vancomycin Consult Active) 1 each N/A UD PRN PRN Reason: Consult Stop: 04/30/22 16:41 Ondansetron HCl (Ondansetron Inj 2 Mg/Ml 2 Ml Vial) 4 mg IV Q6H PRN PRN Reason: Nausea Stop: 04/27/22 01:54 Last Admin: 03/30/22 21:37 Dose: 4 mg Pantoprazole Sodium (Pantoprazole 40 Mg Tab) [address] [facility] Stop: 04/27/22 08:59 Last Admin: 04/01/22 09:06 Dose: 40 mg Phenazopyridine HCl (Phenazopyridine Hcl 200 Mg Tab) 200 mg PO TID [facility] Stop: 04/02/22 14:01 Last Admin: 04/01/22 09:07 Dose: 200 mg Prazosin HCl (Prazosin Hcl 1 Mg Cap) 4 mg PO HS [facility] Stop: 04/27/22 20:59 Last Admin: 03/31/22 21:04 Dose: 4 mg Raspberry (Raspberry Syrup 5 Ml Udp) 5 ml PO Q6 [facility] Stop: 04/07/22 11:59 Last Admin: 04/01/22 12:30 Dose: 5 ml Rizatriptan Benzoate (Rizatriptan Benzoate 10 Mg Tab) 10 mg PO UD PRN PRN Reason: Migraine Headache Stop: 04/27/22 01:54 Sennosides (Senna 8.6 Mg Tab) 17.2 mg PO QAM PRN PRN Reason: constipation Stop: 04/27/22 01:54 Last Admin: 03/30/22 09:59 Dose: 17.2 mg Tamsulosin HCl (Tamsulosin Hcl 0.4 Mg Cap) 0.4 mg PO DAILY [facility] Stop: 04/27/22 08:59 Last Admin: 04/01/22 09:05 Dose: 0.4 mg Topiramate (Topiramate 100 Mg Tab) 200 mg PO BID [facility] Stop: 04/27/22 08:59 Last Admin: 04/01/22 09:06 Dose: 200 mg Vancomycin HCl (Vancomycin Hcl 125 Mg/2.5ml Soln) 125 mg PO Q6 [facility] Stop: 04/07/22 11:59 Last Admin: 04/01/22 12:30 Dose: 125 mg Vitamin B Complex (Vitamin B Complex Tab) 1 tab PO DAILY [facility] Stop: 04/27/22 08:59 Last Admin: 04/01/22 09:06 Dose: 1 tab
[2022-04-01] MEDS: ACETAMINOPHEN 325 MG TAB PO PRN (16:41)
[2022-04-01] MEDS: AMITRIPTYLINE HCL 50 MG TAB PO SCH (21:33)
[2022-04-01] MEDS: FAMOTIDINE 20 MG TAB PO SCH (21:34)
[2022-04-01] MEDS: hydrOXYzine HCl 25 MG TAB PO SCH (21:36)
[2022-04-01] MEDS: PRAZOSIN HCL 1 MG CAP PO SCH (21:37)
[2022-04-01] MEDS: IBUPROFEN 800 MG TAB PO PRN (22:52)
[2022-04-02] MEDS ORDERED: VANCOMYCIN LEVEL ONE (05:30)
[2022-04-02] MEDS: VANCOMYCIN HCL 1,000 MG in SODIUM CHLORIDE 0.9% 250 ML IV SCH ×2 (05:50→17:41)
[2022-04-02] MEDS: RASPBERRY SYRUP 5 ML UDP PO SCH ×3 (05:51→17:43)
[2022-04-02] MEDS: LEVOTHYROXINE SODIUM 50 MCG TABLET PO SCH (05:51)
[2022-04-02] MEDS: VANCOMYCIN HCL 125 MG/2.5ML SOLN PO SCH ×3 (05:51→17:41)
[2022-04-02] MEDS: HEPARIN SOD 5,000 UNIT/0.5 ML VIAL SQ SCH ×3 (05:53→21:40)
[2022-04-02 07:14] LABS: Creatinine Clr Calc Pharmacy 79.4 ml/min; Est GFR (African American) 83.6 ml/min; Est GFR (Non-African American) 72.2 ml/min
--- NOTE | 2022-04-02 07:44 | Pharmacy Report ---
Pharmacy PK ABX Note - Date of Service April 02, 2022 - Assessment and Plan Assessment * 47 year old F receiving vancomycin IV and po for treatment of oxacillin- resistant coag negative Staph pyelonephritis and C. diff, respectively. * Recent fluoroquinolone use for E. coli bacteremia may have contributed to current C. diff episode * Dr. Zamora suspecting coag neg staph actually contaminant, pain most consistent w/ ureteral stent discomfort from placement 02/22/22. * Awaiting ID consult today Plan Vancomycin * Trough level 15.8mcg/ml, consistent with predicted target AUC/ROSRAIO of 400-600 mg/L.hr * Continue 1000 mg IV every 12 hours at this time Vancomycin 125mg PO Q6H Pharmacy will continue to follow and will adjust dose/frequency as necessary. Thank you. Pharmacy has transitioned to AUC monitoring for vancomycin. AUC/ROSARIO is the preferred PK/PD target and is associated with decreased risk of nephrotoxicity compared to traditional trough targets.
[2022-04-02] MEDS: DOCUSATE SODIUM 100 MG CAP PO SCH (08:39)
[2022-04-02] MEDS: FLUTICASONE/VILANTEROL 200/25MCG 14 PUFFS/INHALER INH SCH (08:40)
[2022-04-02] MEDS: lisinopril 5 MG TAB PO SCH (08:40)
[2022-04-02] MEDS: MAGNESIUM OXIDE 400 MG TAB PO SCH (08:40)
[2022-04-02] MEDS: VITAMIN B COMPLEX TAB PO SCH (08:41)
[2022-04-02] MEDS: TAMSULOSIN HCL 0.4 MG CAP PO SCH (08:41)
[2022-04-02] MEDS: DULoxetine HCL 60 MG CAP PO SCH (08:41)
[2022-04-02] MEDS: CYANOCOBALAMIN (B-12) 500 MCG TABLET PO SCH (08:41)
[2022-04-02] MEDS: lamoTRIgine 100 MG TAB PO SCH (08:41)
[2022-04-02] MEDS: PANTOprazole 40 MG TAB PO SCH (08:41)
[2022-04-02] MEDS: CYCLOBENZAPRINE HCL 10 MG TAB PO SCH ×2 (08:42→21:40)
[2022-04-02] MEDS: FERROUS SULFATE 325 MG TAB PO SCH (08:42)
[2022-04-02] MEDS: ADVANCED PROBIOTIC 1250 MG CAPSULE PO SCH (08:42)
[2022-04-02] MEDS: TOPIRAMATE 100 MG TAB PO SCH ×2 (08:42→21:40)
[2022-04-02] MEDS: CETIRIZINE HCL 10 MG TABLET PO SCH (08:42)
[2022-04-02] MEDS: PHENAZOPYRIDINE HCL 200 MG TAB PO SCH ×2 (08:43→14:06)
[2022-04-02] MEDS: DICYCLOMINE HCL 20 MG TAB PO SCH ×2 (08:43→21:40)
[2022-04-02] MEDS: GABAPENTIN 300 MG CAP PO SCH ×3 (08:43→21:40)
[2022-04-02] MEDS: GABAPENTIN 800 MG TAB PO SCH ×3 (08:43→21:40)
[2022-04-02] MEDS: IBUPROFEN 800 MG TAB PO PRN (08:44)
--- NOTE | 2022-04-02 16:59 | Hospitalist Progress Note ---
Date of Service April 02, 2022 Assessment & Plan (1) Pyelonephritis: Plan: Urine culture: Staph aureus, not saprophyticus Patient afebrile, still having some mild flank discomfort On vancomycin IV day #2 ID consulted, awaiting recommendations (2) Right flank pain: Plan: Suspect this is related to ongoing stent pain. Discussed this with Urology who agrees. Currently on ibuprofen as needed, Pyridium scheduled Pain adequately managed as per patient will add Tylenol 1 g q8h for additional pain control (3) S/P ureteral stent placement: Plan: on 02/22/22 (4) Ureteral calculus: Plan: Underwent stent placement on right ureter stent placement on 02/22. Admitted from 02/23-02/27 with right-sided ureteral stone Found to have E. coli bacteremia, discharged on 14-day course of ciprofloxacin Presents to the hospital with right sided flank pain and right CVA tenderness. CT abdomen shows finding concerning for right-sided pyelonephritis initially Urine culture: Staph aureus, sensitivities Lactobacillus Blood cultures: Negative Per urology service, patient needs to complete treatment for C. difficile prior to any urologic procedure Last day of p.o. Vanco April 06 (5) Clostridioides difficile infection: Plan: Was treated for E. coli bacteremia last admission secondary to UTI Was discharged on ciprofloxacin and completed antibiotic course as outpatient. C. difficile positive on admission. Diarrhea resolved Continue vancomycin p.o. 4 times daily, last day April 06, 2022 (6) Bipolar 2 disorder, major depressive episode: Plan: Mood stable at this time (7) Hypothyroidism: Plan: chronic, controlled, Continue on home levothyroxine (8) Chronic back pain: Plan: cont home gabapentin (9) Gastroparesis: Plan: diet controlled, cont behavior modifications and avoid narcotics. DVT proph: Heparin Full Code Disposition pending anticipate DC home once cleared by Urology, antibiotic regimen determined pending ID consult Admission and Anticipated Discharge Date Admission Date: March 28, 2022 Subjective Follow-up for right flank pain, right ureteral stent, UTI, etc. seen with EVAN Martínez at the bedside throughout whole encounter States she still having some right flank discomfort, no dysuria, but reports mild hematuria overnight Pain regimen adequately managing pain so far No fevers or chills, nausea vomiting, abdominal pain Denies headache, dizziness, chest pain, shortness of breath No other symptoms Review of Systems Review of Systems: all noted and negative except for above Physical Exam Physical Exam: General- oriented x 3, not in distress, speaks in sentences with no effort or accessory muscle use Eyes- anicteric Neck- no JVD Lungs- clear BS bilaterally, no crackles or wheezing Heart- normal rate, regular rhythm; no murmurs Abdomen- normal bowel sounds, nondistended, soft, nontender Mild right CVA tenderness Extremities- no pretibial edema, no calf tenderness Neuro- alert, oriented x 3; no gross focal neurologic deficits Skin- warm & dry Results & Data Results & Data ([facility]) Vital Signs (Past 12 Hours) Vital Signs Temp Pulse Resp BP Pulse Ox O2 Del Method 04/02/22 15:23 36.8 C 68 18 135/81 97 Room Air 04/02/22 07:38 36.4 C L 59 L 18 137/85 96 Room Air all noted and reviewed including below
[2022-04-02] MEDS: hydrOXYzine HCl 25 MG TAB PO SCH (21:40)
[2022-04-02] MEDS: FLUTICASONE PROPIONATE NA SPR 16 GM BTL SCH (21:40)
[2022-04-02] MEDS: AMITRIPTYLINE HCL 50 MG TAB PO SCH (21:40)
[2022-04-02] MEDS: PRAZOSIN HCL 1 MG CAP PO SCH (21:40)
[2022-04-02] MEDS: FAMOTIDINE 20 MG TAB PO SCH (21:40)
[2022-04-03] MEDS: ACETAMINOPHEN 325 MG TAB PO PRN (00:07)
[2022-04-03] MEDS: RASPBERRY SYRUP 5 ML UDP PO SCH ×4 (00:07→17:55)
[2022-04-03] MEDS: VANCOMYCIN HCL 125 MG/2.5ML SOLN PO SCH ×4 (00:07→17:55)
[2022-04-03] MEDS: HEPARIN SOD 5,000 UNIT/0.5 ML VIAL SQ SCH ×3 (05:47→21:55)
[2022-04-03] MEDS: VANCOMYCIN HCL 1,000 MG in SODIUM CHLORIDE 0.9% 250 ML IV SCH (05:47)
[2022-04-03] MEDS: LEVOTHYROXINE SODIUM 50 MCG TABLET PO SCH (05:48)
[2022-04-03] MEDS: FERROUS SULFATE 325 MG TAB PO SCH (07:27)
[2022-04-03] MEDS: CETIRIZINE HCL 10 MG TABLET PO SCH (07:27)
[2022-04-03] MEDS: CYCLOBENZAPRINE HCL 10 MG TAB PO SCH ×2 (07:27→21:55)
[2022-04-03] MEDS: TOPIRAMATE 100 MG TAB PO SCH ×2 (07:27→21:55)
[2022-04-03] MEDS: DULoxetine HCL 60 MG CAP PO SCH (07:28)
[2022-04-03] MEDS: GABAPENTIN 300 MG CAP PO SCH ×3 (07:28→21:55)
[2022-04-03] MEDS: DICYCLOMINE HCL 20 MG TAB PO SCH ×2 (07:28→21:55)
[2022-04-03] MEDS: GABAPENTIN 800 MG TAB PO SCH ×3 (07:28→21:55)
[2022-04-03] MEDS: PANTOprazole 40 MG TAB PO SCH (07:29)
[2022-04-03] MEDS: ADVANCED PROBIOTIC 1250 MG CAPSULE PO SCH (07:29)
[2022-04-03] MEDS: lamoTRIgine 100 MG TAB PO SCH (07:29)
[2022-04-03] MEDS: DOCUSATE SODIUM 100 MG CAP PO SCH (07:29)
[2022-04-03] MEDS: MAGNESIUM OXIDE 400 MG TAB PO SCH (07:30)
[2022-04-03] MEDS: lisinopril 5 MG TAB PO SCH (07:30)
[2022-04-03] MEDS: VITAMIN B COMPLEX TAB PO SCH (07:30)
[2022-04-03] MEDS: TAMSULOSIN HCL 0.4 MG CAP PO SCH (07:30)
[2022-04-03] MEDS: CYANOCOBALAMIN (B-12) 500 MCG TABLET PO SCH (07:30)
[2022-04-03] MEDS: FLUTICASONE PROPIONATE NA SPR 16 GM BTL SCH ×2 (07:30→21:55)
[2022-04-03] MEDS: FLUTICASONE/VILANTEROL 200/25MCG 14 PUFFS/INHALER INH SCH (07:31)
[2022-04-03 07:40] LABS: Hematocrit (blood only) 33.3 % (34.1-44.9); Mean Corpuscular Hemoglobin 29.7 pg (25.0-34.0); Mean Platelet Volume 8.8 fL (9.4-12.3); Platelet Count 388 K/uL (130-400); RDW Coefficient of Variation 13.7 % (11.5-14.5); RDW Standard Deviation 44.5 fL (36.4-46.3); White Blood Count 13.16 K/ul (4.8-10.8)
[2022-04-03 08:03] LABS: Creatinine Clr Calc Pharmacy 67.1 ml/min; Est GFR (African American) 68.3 ml/min; Est GFR (Non-African American) 58.9 ml/min
[2022-04-03] MEDS ORDERED: PHENAZOPYRIDINE HCL 200 MG TAB PO PRN (08:28)
[2022-04-03] MEDS: ACETAMINOPHEN 500 MG TAB PO SCH ×2 (09:53→17:55)
--- NOTE | 2022-04-03 17:15 | Hospitalist Progress Note ---
Date of Service April 03, 2022 Assessment & Plan (1) Pyelonephritis: Plan: Pyelonephritis unlikely Urine culture: Staph aureus, not saprophyticus Patient afebrile, still having some mild flank discomfort Discussed with urology service, pyelonephritis unlikely at this point ID consulted, consult notes reviewed On vancomycin IV day #2--> DC IV Vanco Monitor overnight If afebrile, feeling okay will discharge tomorrow Plan for stent removal by urology service on April 09 (2) Right flank pain: Plan: Suspect this is related to ongoing stent pain. Discussed this with Urology who agrees. Currently on Tylenol 1 g every 8 hours, ibuprofen as needed, Pyridium as needed Pain adequately managed as per patient (3) S/P ureteral stent placement: Plan: on 02/22/22 (4) Ureteral calculus: Plan: Underwent stent placement on right ureter stent placement on 02/22. Admitted from 02/23-02/27 with right-sided ureteral stone Found to have E. coli bacteremia, discharged on 14-day course of ciprofloxacin Presents to the hospital with right sided flank pain and right CVA tenderness. CT abdomen shows finding concerning for right-sided pyelonephritis initially Urine culture: Staph aureus, sensitivities Lactobacillus Blood cultures: Negative Per urology service, patient needs to complete treatment for C. difficile prior to any urologic procedure Last day of p.o. Vanco April 06 (5) Clostridioides difficile infection: Plan: Was treated for E. coli bacteremia last admission secondary to UTI Was discharged on ciprofloxacin and completed antibiotic course as outpatient. C. difficile positive on admission. Diarrhea resolved Continue vancomycin p.o. 4 times daily, last day April 06, 2022 (6) Bipolar 2 disorder, major depressive episode: Plan: Mood stable at this time (7) Hypothyroidism: Plan: chronic, controlled, Continue on home levothyroxine (8) Chronic back pain: Plan: cont home gabapentin (9) Gastroparesis: Plan: diet controlled, cont behavior modifications and avoid narcotics. DVT proph: Heparin Full Code Disposition pending anticipate DC home tomorrow Admission and Anticipated Discharge Date Admission Date: March 28, 2022 Subjective Follow-up for right flank pain, status post right ureteral stent placement, right nephrolithiasis, etc. Patient seen with RN at the bedside throughout all encounter Seen resting in bed, comfortable, not in distress States she feels okay overall today, having some right flank pain which is adequately controlled Has some dysuria but no hematuria, fevers or chills No other symptoms Review of Systems Review of Systems: all noted and negative except for above Physical Exam Physical Exam: General- oriented x 3, not in distress, speaks in sentences with no effort or accessory muscle use Eyes- anicteric Neck- no JVD Lungs- clear BS bilaterally, no rales/wheezes Heart- normal rate, regular rhythm; no murmurs Abdomen- normal bowel sounds, nondistended, soft, nontender Positive mild right CVA tenderness Extremities- no pretibial edema, no calf tenderness Right wrist positive excoriation, but no signs of infection Neuro- alert, oriented x 3; no gross focal neurologic deficits Skin- warm & dry Results & Data Results & Data ([facility]) Vital Signs (Past 12 Hours) Vital Signs Temp Pulse Resp BP Pulse Ox O2 Del Method 04/03/22 15:25 36.8 C 68 16 139/82 95 Room Air 04/03/22 07:25 36.8 C 66 16 123/78 96 Room Air all noted and reviewed including below
[2022-04-03] MEDS: hydrOXYzine HCl 25 MG TAB PO SCH (21:55)
[2022-04-03] MEDS: BACITRACIN OINT 15 GM TUBE EXT SCH (21:55)
[2022-04-03] MEDS: PRAZOSIN HCL 1 MG CAP PO SCH (21:55)
[2022-04-03] MEDS: AMITRIPTYLINE HCL 50 MG TAB PO SCH (21:55)
[2022-04-03] MEDS: FAMOTIDINE 20 MG TAB PO SCH (21:55)
[2022-04-04] MEDS: ACETAMINOPHEN 500 MG TAB PO SCH ×2 (00:24→08:15)
[2022-04-04] MEDS: VANCOMYCIN HCL 125 MG/2.5ML SOLN PO SCH ×3 (00:24→11:35)
[2022-04-04] MEDS: RASPBERRY SYRUP 5 ML UDP PO SCH ×3 (00:24→11:35)
[2022-04-04] MEDS: HEPARIN SOD 5,000 UNIT/0.5 ML VIAL SQ SCH (05:26)
[2022-04-04] MEDS: LEVOTHYROXINE SODIUM 50 MCG TABLET PO SCH (05:27)
[2022-04-04] MEDS: lamoTRIgine 100 MG TAB PO SCH (08:15)
[2022-04-04] MEDS: VITAMIN B COMPLEX TAB PO SCH (08:15)
[2022-04-04] MEDS: MAGNESIUM OXIDE 400 MG TAB PO SCH (08:16)
[2022-04-04] MEDS: lisinopril 5 MG TAB PO SCH (08:16)
[2022-04-04] MEDS: GABAPENTIN 800 MG TAB PO SCH (08:16)
[2022-04-04] MEDS: TAMSULOSIN HCL 0.4 MG CAP PO SCH (08:16)
[2022-04-04] MEDS: GABAPENTIN 300 MG CAP PO SCH (08:16)
[2022-04-04] MEDS: CETIRIZINE HCL 10 MG TABLET PO SCH (08:16)
[2022-04-04] MEDS: DOCUSATE SODIUM 100 MG CAP PO SCH (08:17)
[2022-04-04] MEDS: ADVANCED PROBIOTIC 1250 MG CAPSULE PO SCH (08:17)
[2022-04-04] MEDS: DICYCLOMINE HCL 20 MG TAB PO SCH (08:17)
[2022-04-04] MEDS: FERROUS SULFATE 325 MG TAB PO SCH (08:17)
[2022-04-04] MEDS: DULoxetine HCL 60 MG CAP PO SCH (08:17)
[2022-04-04] MEDS: TOPIRAMATE 100 MG TAB PO SCH (08:18)
[2022-04-04] MEDS: PANTOprazole 40 MG TAB PO SCH (08:18)
[2022-04-04] MEDS: CYANOCOBALAMIN (B-12) 500 MCG TABLET PO SCH (08:18)
[2022-04-04] MEDS: FLUTICASONE PROPIONATE NA SPR 16 GM BTL SCH (08:18)
[2022-04-04] MEDS: FLUTICASONE/VILANTEROL 200/25MCG 14 PUFFS/INHALER INH SCH (08:19)
[2022-04-04] MEDS: BACITRACIN OINT 15 GM TUBE EXT SCH (08:19)
[2022-04-04] MEDS: CYCLOBENZAPRINE HCL 10 MG TAB PO SCH (08:20)
--- NOTE | 2022-04-04 10:08 | Urology Progress Note ---
Date of Service April 04, 2022 Assessment & Plan (1) S/P ureteral stent placement: (2) Right flank pain: (3) Kidney stone: Plan 47yo F s/p right stent placement for an infected stone on 02/22/2022 who presented with intractable right flank pain and admitted with suspected UTI/Py taylor. CT a/p on arrival demonstrated the right ureteral stent to be in appropriate position, small stone fragments in the distal ureter along the course of the stent, no hydronephrosis, and nonspecific urothelial thickening/enhancement suggestive of superimposed UTI/pyelonephritis. A single nonobstructing left renal calculus was also noted. Urinalysis was concerning for infection. Also found to have CDiff. -Pyelonephritis seems unlikely at this point. -Right flank pain likely d/t ureteral stent. -She remains afebrile and hemodynamically stable. -Urine culture with Staph aureus, not saprophyticus. Blood cultures negative. -IV Vanco discontinued 04/03, continues on oral Vanco ( last day April 06). -She will need to complete duration of treatment for C. difficile infection prior to considering stone treatment. -Will arrange follow-up with our service to schedule definitive stone treatment. -Expected clinical course reviewed, pt agreeable. All questions were answered. -Recommend continuing tamsulosin, prn pyridium, and prn analgesics for stent management. -Urology will sign-off. Please contact us with any further questions, concerns, or changes in patient status. Admission and Anticipated Discharge Date Admission Date: March 28, 2022 Subjective Patient examined at bedside this AM. Awake, sitting up in bed on arrival. No acute distress. No fevers. Voiding without issue. Still with intermittent right flank pain, but well controlled at this point. Likely going home today. Review of Systems Constitutional: as per Subjective / HPI Genitourinary: as per Subjective / HPI Physical Exam Constitutional: no acute distress Respiratory: no respiratory distress and no labored breathing Neurologic: awake Psychiatric: Orientation: alert and oriented x 3 Results & Data ([facility]) Vital Signs (Past 12 Hours) Vital Signs Temp Pulse Resp BP Pulse Ox O2 Del Method 04/04/22 07:06 36.6 C 66 16 144/93 H 97 Room Air 04/03/22 21:55 Room Air 04/03/22 21:49 37.1 C 60 18 162/83 H 97 Room Air PG Care Time/CCT Total # of Minutes Spent Total Time Spent with Patient: Total time spent is greater than 50% in coordination of care (as documented) at patient's floor/unit and/or counseling patient: Coding Level of Care Code 93092 Subseq Hosp Care Lvl 2 Diagnoses S/P ureteral stent placement Z96.0 Right flank pain R10.9 Kidney stone N20.0
--- NOTE | 2022-04-04 10:45 | Hospitalist Progress Note ---
Date of Service April 04, 2022 Assessment & Plan (1) Pyelonephritis: Plan: Pyelonephritis unlikely s/p Ureteral stent placement 02/22 afterwards, completed Ciprofloxacin for E coli bacteremia presented with R flank pain Urine culture: Staph aureus, not saprophyticus Patient afebrile, still having some mild flank discomfort Discussed with urology service, pyelonephritis unlikely at this point ID consulted, consult notes reviewed given Ceftriaxone, Vancomycin IV day #2--> DC IV Vanco remains afebrile mild R flank pain ok for discharge per Urology ureteral stent removal week after PRN Tylenol, Ibuprofen, Pyridium (2) Right flank pain: Plan: Suspect this is related to ongoing stent pain. Discussed this with Urology who agrees. given Tylenol 1 g every 8 hours, ibuprofen as needed, Pyridium as needed Pain adequately managed as per patient (3) S/P ureteral stent placement: Plan: on 02/22/22 (4) Ureteral calculus: Plan: Underwent stent placement on right ureter stent placement on 02/22. Admitted from 02/23-02/27 with right-sided ureteral stone Found to have E. coli bacteremia, discharged on 14-day course of ciprofloxacin Presents to the hospital with right sided flank pain and right CVA tenderness. CT abdomen shows finding concerning for right-sided pyelonephritis initially Urine culture: Staph aureus, sensitivities Lactobacillus Blood cultures: Negative Per urology service, patient needs to complete treatment for C. difficile prior to any urologic procedure Last day of p.o. Vanco April 06 (5) Clostridioides difficile infection: Plan: Was treated for E. coli bacteremia last admission secondary to UTI Was discharged on ciprofloxacin and completed antibiotic course as outpatient. C. difficile positive on admission. Diarrhea resolved Continue vancomycin p.o. 4 times daily, last day April 06, 2022 (6) Bipolar 2 disorder, major depressive episode: Plan: Mood stable at this time (7) Hypothyroidism: Plan: chronic, controlled, Continue on home levothyroxine (8) Chronic back pain: Plan: cont home gabapentin (9) Gastroparesis: Plan: diet controlled, cont behavior modifications and avoid narcotics. DVT proph: Heparin Full Code Disposition d/c home ff up with Urologist next week plan of care discussed with patient in detail and at length all questions answered she is understanding, agreeable, comfortable with the plan of care Admission and Anticipated Discharge Date Admission Date: March 28, 2022 Subjective ff up for R flank pain, etc seen resting in bed, comfortable states she feels fine overall r flank pain adequately controlled has occasional dysuria no fever/chills no other symptoms states she is ok for discharge today Review of Systems Review of Systems: all noted and negative except for above Physical Exam Physical Exam: General- oriented x 3, not in distress, speaks in sentences with no effort or accessory muscle use Eyes- anicteric Neck- no JVD Lungs- clear BS BL Heart- normal rate, regular rhythm; no murmurs Abdomen- normal bowel sounds, nondistended, soft, nontender mild R CVA tenderness Extremities- no pretibial edema, no calf tenderness Neuro- alert, oriented x 3; no gross focal neurologic deficits Skin- warm & dry Results & Data Results & Data ([facility]) Vital Signs (Past 12 Hours) Vital Signs Temp Pulse Resp BP Pulse Ox O2 Del Method 04/04/22 07:06 36.6 C 66 16 144/93 H 97 Room Air all noted and reviewed including below
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
== END 2022-04-04 12:52 | disposition home or self-care (01) | DRG 699 ==
LOC: ED 21:42 → 3E 03-28 01:31 → SUATTDRO 03-28 01:53
DX: Z88.5 Allergy status to narcotic agent; Z68.35 Body mass index [BMI] 35.0-35.9, adult; R73.03 Prediabetes; Z79.84 Long term (current) use of oral hypoglycemic drugs; T83.84XA Pain due to genitourinary prosthetic devices, implants and grafts, initial encounter; B95.61 Methicillin susceptible Staphylococcus aureus infection as the cause of diseases classified elsewhere; F31.81 Bipolar II disorder; E66.9 Obesity, unspecified; K21.9 Gastro-esophageal reflux disease without esophagitis; Y81.2 Prosthetic and other implants, materials and accessory general- and plastic-surgery devices associated with adverse incidents; Y92.009 Unspecified place in unspecified non-institutional (private) residence as the place of occurrence of the external cause; N17.9 Acute kidney failure, unspecified; R19.7 Diarrhea, unspecified; N20.2 Calculus of kidney with calculus of ureter; A04.72 Enterocolitis due to Clostridium difficile, not specified as recurrent; K31.84 Gastroparesis; Z96.0 Presence of urogenital implants; Z86.16 Personal history of COVID-19

== ENCOUNTER 2022-05-31 15:04 | Inpatient (IN) ==
[2022-05-31 16:06] LABS: Appearance Urine Turbid (Clear); Bacteria Urine Automated 2+ (Negative); Bilirubin Urine Negative (Negative); Blood Urine Trace (Negative); Color Urine Dark Yellow; Epithelial Cell Urine Auto >30 /lpf (0-5); Glucose Urine UA Negative (Negative); Ketones Urine Negative (Negative); Leukocyte Esterase Urine 2+ (Negative); Nitrite Urine Positive (Negative); Protein Urine 1+ (Negative); RBC Urine Automated 0-4 /hpf (0-4); Specific Gravity Urine 1.024 (1.000-1.030); Urobilinogen Urine Negative (Negative); WBC Urine Automated >30 /hpf (0-5)
[2022-05-31 16:16] LABS: Basophils % (auto) 1.2 %; Eosinophils # (auto) 0.28 K/uL (0-0.50); Eosinophils % (auto) 3.3 %; Hematocrit (blood only) 37.3 % (37.0-47.0); Hemoglobin 12.2 g/dl (12.0-16.0); Immature Granulocytes # (auto) 0.06 K/uL (0.01-0.20); Immature Granulocytes % (auto) 0.7 %; Lymphocytes # (auto) 2.99 K/uL (1.2-3.4); Lymphocytes % (auto) 34.9 %; Mean Corpuscular Hemoglobin 29.8 pg (25.0-34.0); Mean Corpuscular Hgb Conc 32.7 g/dL (32.0-36.0); Mean Platelet Volume 9.1 fL (9.4-12.4); Monocytes # (auto) 0.65 K/uL (0.11-0.59); Monocytes % (auto) 7.6 %; Neutrophils # (auto) 4.49 K/uL (1.40-6.50); Neutrophils % (auto) 52.3 %; Platelet Count 316 K/uL (130-400); RDW Coefficient of Variation 12.9 % (11.5-14.5); RDW Standard Deviation 42.4 fL (36.4-46.3); White Blood Count 8.57 K/ul (4.8-10.8)
[2022-05-31 16:26] LABS: Acetaminophen < 3 ug/ml (10-30); Salicylate < 3.0 mg/dl (3.0-30)
[2022-05-31 16:33] LABS: Alanine Aminotransferase 23 U/L (7-52); Albumin Globulin Ratio 1.3 (0.9-2); Alkaline Phosphatase 48 U/L (34-104); Anion Gap 6 (3-11); Aspartate Aminotransferase 20 U/L (13-39); BUN Creatinine Ratio 22.4 (10-20); Bilirubin,Total 0.4 mg/dl (0.2-1.0); Blood Urea Nitrogen 19 mg/dl (6-23); Calcium 9.4 mg/dl (8.5-10.1); Carbon Dioxide 24 mmol/L (21-32); Chloride 108 mmol/L (98-107); Est GFR (African American) 93.3 ml/min; Est GFR (Non-African American) 80.5 ml/min; Globulin 3.2 gm/dl (2.5-4.0); Glucose 83 mg/dl (70-99(Fasting)); Potassium 3.9 mmol/L (3.5-5.1); Sodium 138 mmol/L (136-145); Total Protein 7.2 gm/dl (6.0-8.3)
[2022-05-31 16:41] LABS: Amphetamines+Metham, Urine Neg (Neg); Barbiturates, Urine Neg (Neg); Benzodiazepine, Urine Neg (Neg); Cocaine, Urine Neg (Neg); MDMA (Ecstacy), Urine Neg (Neg); Methadone, Urine Neg (Neg); Opiate, Urine Neg (Neg); Phencyclidine, Urine Neg (Neg)
--- NOTE | 2022-05-31 17:22 | Emergency Department Note ---
Impression & Plan Suicidal ideation ED Provider Note INFORMANT: Patient ED PROVIDER(S): Phill Peña MD CHIEF COMPLAINT: Suicidal ideation PLAN: Disposition: Admitted Condition: Good Outpatient prescription management: none Referral: None MEDICAL DECISION MAKING: Patient presented to the emergency department because of suicidal ideation. She was directed here by her mental health provider. The patient was voluntary. She had a benign physical examination except for her psychiatric component. The patient requested her evening Depakote with dinner. This was ordered. She had unremarkable laboratory testing. 3 S. was consulted. They evaluated the patient in the ER and the patient was excepted for admission. Toxicology screen was negative. Patient's urinalysis was abnormal and a culture was sent. Her urinalysis is consistent with her prior of which the culture was negative. She frequently has abnormal urinalyses. She did have 1 E. coli infection. As she is asymptomatic from a urinary standpoint culture is important to delineate the urinalysis findings before treatment. Patient's case was discussed with and she was evaluated by the ED psychiatric case management manager. After review of the information above and other included data, I feel the patient requires admission. Triage Nursing notes reviewed and agree them. Vital Signs: reviewed and remarkable for no significant abnormalities Prior /Outside records reviewed: Prior laboratory and culture results reviewed from her last several visits. E. coli infection noted back in February. Differential diagnosis: Mood disorder, infection, hypoglycemia, electrolyte abnormalities, cardiac sources, intracerebral event, toxicologic, trauma, neurologic, as well as other pathologies. Diagnostics, as interpreted by me: ECG: none Cardiac Monitoring: none Medical decision rules: none Imaging studies: deferred HPI: The patient is a 47year old female who presents to the Emergency Room with complaints of suicidal ideation with plan to overdose. This week this started and is worsening per patient. She notes a lot of emotional stress. The patient also notes the following associated symptoms, none. Patient saw her psychiatrist and was directed to the ED for voluntary inpatient admission. Patient is agreeable to her psychiatrist suggestions. She has been admitted several times in the past. The patient has taken no extra medication for relieving factors. Current pain is rated as 5/10. Patient states that she has some residual pain on the right Flank area because of recent lithotripsy for kidney stone. She states that is improving. pt denies LOC, headache, fevers, chills, diaphoresis, visual changes, neck pain, chest pain, breathing difficulties, nausea, vomiting, abdominal pain, melena, hematochezia, urinary symptoms, numbness, weakness, lymphadenopathy, rash, or other complaints. PAST MEDICAL HISTORY: See Below, kidney stone, major depression PAST SURGICAL HISTORY: See Below, SOCIAL HISTORY: See Below, non-smoker HOME MEDICATIONS: See Below ALLERGIES: See Below VITALS: See Below PHYSICAL EXAMINATION: GENERAL: Awake, alert, well-appearing, in no distress HENT: Normocephalic, atraumatic. Oropharynx unremarkable. EYES: Normal conjunctiva. Sclera non-icteric. NECK: Inspection normal. Non-tender. Supple. No nuchal rigidity. FROM. No masses. RESPIRATORY: Clear to auscultation. No wheezes. No rales. Normal respiratory effort. CARDIAC: Normal rate. Normal rhythm. No murmurs. No rubs. Extremities warm and well perfused. Pulses equal. No JVD. GI: Soft, non-distended. No tenderness to palpation. No rebound or guarding. No masses. RECTAL: Deferred. MUSCULOSKELETAL: Atraumatic. Chest examination reveals no tenderness. The back is symmetrical on inspection without obvious abnormality. There is mild right CVA tenderness to palpation. No joint edema. LOWER EXTREMITIES: Calves are equal size bilaterally and non-tender. No edema. No discoloration. NEURO: Normal sensorium. No sensory or motor deficits noted. SKIN: No rash or jaundice noted. PSYCH: Depressed mood and flat affect. Positive SI. No hallucinations or delusions. Past Med/Surg History Medical History ALEXANDR (acute kidney injury) Anemia Anxiety Asthma USES PRN INH APPROX 1-2 X MONTHLY; DENIES RECENT EXAC Bipolar 1 disorder Chest pain follows with [facility] cardio records, atypical, attributed to GI etiology and anxiety Closed head injury R/T FALL IN 2017; REPORTS CONCUSSION COVID-19 07/25/20 > not hospitalized Depression with suicidal ideation E. coli septicemia Fibroadenoma of breast RT Fibromyalgia Gastroparesis GERD (gastroesophageal reflux disease) Hx of prolonged Q-T interval on ECG PER PT'S MEDICAL RECORD FROM PCP OFFICE. Hx of sepsis hospitalized at [facility] Feb 2022 for this > resolved per pt Hydronephrosis due to obstruction of ureter Hypothyroidism Irregular menses Kidney stone Migraine Obesity PCO (polycystic ovaries) Peripheral neuropathy Poor historian Prediabetes PTSD (post-traumatic stress disorder) Pyelonephritis Recurrent UTI Sepsis Sleep apnea NO CPAP Surgical History H/O lithotripsy History of ankle surgery RT History of breast biopsy RT History of cystoscopy History of esophagogastroduodenoscopy (EGD) Hx of cholecystectomy Hx of colonoscopy Hx of knee surgery RT Status post labral repair of shoulder RT Family History Father Heart disease Other No significant family history Social History Smoking Status: Never smoker Second Hand Exposure: No; Hx Alcohol Use: No Hx Substance Use: No Preferred Language: Turkmen Communication Ability: Effective Visual Impairment: No Limitations Hearing Ability: Hard of Hearing [employer] Required: No Beliefs That Will Affect Care: Catholic Catholic Beliefs: Religion marital status: Single Current Living Situation: Family Current Living Situation Comment: lives w/ mom. disabled. no drivers license current occupational status: disabled Feels Safe at Home: Yes Gender Identity: Female Assistive Devices: None Allergies Allergies Allergy/AdvReac Type Severity Reaction Status Date / Time bee venom protein (honey bee) Allergy Severe ANAPHYLAXIS Verified 04/26/22 11:51 morphine AdvReac Intermediate HALLUCINATI Verified 04/26/22 11:51 ONS Home Meds Home Medications Medication Instructions Recorded Confirmed cyclobenzaprine 10 mg tablet 10 mg PO AMHS 01/10/18 05/31/22 docusate sodium 100 mg capsule 100 mg PO QAM 01/10/18 05/31/22 (Colace) epinephrine 0.3 mg/0.3 mL 0.3 mg IM DIRECTED PRN Severe 01/10/18 05/31/22 injection, auto-injector (EpiPen) Allergic Reaction ferrous sulfate 325 mg (65 mg 325 mg PO QAM 01/10/18 05/31/22 iron) tablet (Feosol) fluticasone furoate 200 1 inh inhalation QAM 01/10/18 05/31/22 mcg-vilanterol 25 mcg/dose inhalation powder (Breo Ellipta) fluticasone propionate 50 2 spray intranasal DAILY PRN 01/10/18 05/31/22 mcg/actuation nasal Allergy Symptoms spray,suspension (Flonase Allergy Relief) gabapentin 800 mg tablet 800 mg PO TID 01/10/18 05/31/22 levothyroxine 50 mcg tablet 50 mcg PO DAILYBB 01/10/18 05/31/22 pantoprazole 40 mg tablet,delayed 40 mg PO QAM 01/10/18 05/31/22 release (Protonix) rizatriptan 10 mg tablet (Maxalt) 10 mg PO DIRECTED PRN Migraine 01/10/18 05/31/22 Headache topiramate 200 mg tablet (Topamax) 200 mg PO AMHS 05/25/18 05/31/22 prazosin 2 mg capsule (Minipress) 4 mg PO HS 06/19/18 05/31/22 cetirizine 10 mg tablet (Zyrtec) 10 mg PO QAM 09/20/18 05/31/22 Lactobacillus comb 1 cap PO QAM 10/14/18 05/31/22 [id number] 300 million cell-250 mg capsule (Probiotic and Acidophilus) hydroxyzine pamoate 50 mg capsule 50 mg PO HS 10/14/18 05/31/22 (Vistaril) onabotulinumtoxinA 200 unit 0 unit IM .Q12 WEEKS 10/14/18 05/31/22 solution for injection (Botox) magnesium oxide 400 mg PO QAM 04/07/19 05/31/22 gabapentin 300 mg capsule 300 mg PO TID 08/08/19 05/31/22 (Neurontin) lamotrigine 200 mg tablet 200 mg PO QAM 08/08/19 05/31/22 (Lamictal) ondansetron 4 mg disintegrating 4 mg PO Q8H PRN Nausea 08/08/19 05/31/22 tablet cranberry 500 mg capsule 500 mg PO QAM 02/14/20 05/31/22 cyanocobalamin (vitamin B-12) 1,000 mcg PO QAM 02/14/20 05/31/22 1,000 mcg tablet (Vitamin B-12) norethindrone 1.5 mg-ethinyl 1 tab PO QAM 02/14/20 05/31/22 estradiol 30 mcg(21)/iron 75 mg(7) tablet (Junel FE 1.5/30 (28)) lisinopril 5 mg tablet 5 mg PO QAM 09/15/20 05/31/22 duloxetine 60 mg capsule,delayed 60 mg PO QAM 03/04/21 05/31/22 release dicyclomine 20 mg tablet 20 mg PO BID 10/28/21 05/31/22 famotidine 20 mg tablet 20 mg PO HS 10/28/21 05/31/22 metformin 500 mg tablet,extended 500 mg PO QDD 10/28/21 05/31/22 release 24 hr amitriptyline 50 mg tablet 50 mg PO HS 02/22/22 05/31/22 vitamin B complex 1 tab PO DAILY 02/22/22 05/31/22 albuterol sulfate 90 mcg/actuation 1 inh inhalation QID PRN Wheezing 03/26/22 05/31/22 aerosol inhaler albuterol sulfate 2.5 mg/3 mL 2.5 mg continuous nebulization Q4 03/28/22 05/31/22 (0.083 %) solution for nebulization PRN Shortness Of Breath Or Wheezing Previous Rx's Medication Instructions Recorded lidocaine 5 % topical patch 1 patch transdermal Q24H PRN pain 02/27/22 #15 ea phenazopyridine 100 mg tablet 100 mg PO TID PRN uinary pain #20 02/27/22 (Pyridium) tabs sennosides 8.6 mg tablet (Senokot) 17.2 mg PO QAM PRN constipation 02/27/22 #30 tabs phenazopyridine 200 mg tablet 200 mg PO TID PRN BLADDER SPASM 04/04/22 (Pyridium) #20 tabs oxycodone-acetaminophen 7.5 mg-325 1 tab PO Q8H PRN pain #7 tabs 04/26/22 mg tablet (Percocet) phenazopyridine 200 mg tablet 200 mg PO Q8H PRN pain #10 tabs 04/26/22 (Pyridium) Results & Data (ED) Vital Signs Vital Signs - 24 hr 05/31/22 15:18 Temperature 36.9 C Temperature Source Temporal Artery Scan Pulse Rate 90 Respiratory Rate 18 Blood Pressure 148/84 H Blood Pressure Mean 105 Pulse Oximetry 96 Oxygen Delivery Method Room Air Sepsis Recent Fever Within 48 Hours No Sepsis New/Unexplained Change in Mental Status No Sepsis Action Taken by Nursing No Action Required Laboratory Data 05/31/22 15:46 05/31/22 15:46 Lab Results 05/31/22 05/31/22 05/31/22 Range/Units 15:25 15:25 15:25 WBC (4.8-10.8) K/ul RBC (4.20-5.40) M/uL Hgb (12.0-16.0) g/dl Hct (37.0-47.0) % MCV (80.0-100.0) fL MCH (25.0-34.0) pg MCHC (32.0-36.0) g/dL RDW Std Deviation (36.4-46.3) fL RDW Coeff of Kailee (11.5-14.5) % Plt Count (130-400) K/uL MPV (9.4-12.4) fL Immature Gran % (Auto) % Neut % (Auto) % Lymph % (Auto) % [place] % (Auto) % Eos % (Auto) % Baso % (Auto) % Neut # (Auto) (1.40-6.50) K/uL Lymph # (Auto) (1.2-3.4) K/uL [place] # (Auto) (0.11-0.59) K/uL Eos # (Auto) (0-0.50) K/uL Baso # (Auto) (0-0.2) K/uL Immature Gran # (Auto) (0.01-0.20) K/uL Sodium (136-145) mmol/L Potassium (3.5-5.1) mmol/L Chloride (98-107) mmol/L Carbon Dioxide (21-32) mmol/L Anion Gap (3-11) BUN (6-23) mg/dl Creatinine (0.6-1.2) mg/dl Est Cr Clr Drug Dosing Est GFR ( Amer) ml/min Est GFR (Non-Af Amer) ml/min BUN/Creatinine Ratio (10-20) Glucose (70-99(Fasting)) mg/dl Calcium (8.5-10.1) mg/dl Total Bilirubin (0.2-1.0) mg/dl AST (13-39) U/L ALT (7-52) U/L Alkaline Phosphatase (34-104) U/L Total Protein (6.0-8.3) gm/dl Albumin (3.4-5.0) gm/dl Globulin (2.5-4.0) gm/dl Albumin/Globulin Ratio (0.9-2) TSH (0.300-4.500) uIu/ml Urine Color Dark Yellow Urine Appearance Turbid A (Clear) Urine pH 5.0 (4.5-7.5) Ur Specific [place] 1.024 (1.000-1.030) Urine Protein 1+ H (Negative) Urine Glucose (UA) Negative (Negative) Urine Ketones Negative (Negative) Urine Blood Trace H (Negative) Urine Nitrite Positive A (Negative) Urine Bilirubin Negative (Negative) Urine Urobilinogen Negative (Negative) Ur Leukocyte Esterase 2+ H (Negative) Urine WBC (Auto) >30 H (0-5) /hpf Urine RBC (Auto) 0-4 (0-4) /hpf U Hyaline Cast (Auto) 1-5 (0-5) /lpf U Epithel Cells (Auto) >30 H (0-5) /lpf Urine Bacteria (Auto) 2+ H (Negative) POC Ur Test (NEG) Salicylates (3.0-30) mg/dl Urine Opiates Screen Neg (Neg) Ur Methadone, Qual Neg (Neg) Acetaminophen (10-30) ug/ml Urine Barbiturates Neg (Neg) Ur Phencyclidine (PCP) Neg (Neg) U Amphetamin/Meth Scrn Neg (Neg) MDMA (Ecstasy) Screen Neg (Neg) U Benzodiazepines Scrn Neg (Neg) Ur Cocaine Metabolite Neg (Neg) U Marijuana (THC) Screen Neg (Neg) Ethyl Alcohol mg/dL (<10.0) mg/dl SARS-CoV-2, RNA, NAAT NEGATIVE (NEGATIVE) 05/31/22 05/31/22 05/31/22 Range/Units 15:25 15:46 15:46 WBC 8.57 (4.8-10.8) K/ul RBC 4.10 L (4.20-5.40) M/uL Hgb 12.2 (12.0-16.0) g/dl Hct 37.3 (37.0-47.0) % MCV 91.0 (80.0-100.0) fL MCH 29.8 (25.0-34.0) pg MCHC 32.7 (32.0-36.0) g/dL RDW Std Deviation 42.4 (36.4-46.3) fL RDW Coeff of Kailee 12.9 (11.5-14.5) % Plt Count 316 (130-400) K/uL MPV 9.1 L (9.4-12.4) fL Immature Gran % (Auto) 0.7 % Neut % (Auto) 52.3 % Lymph % (Auto) 34.9 % [place] % (Auto) 7.6 % Eos % (Auto) 3.3 % Baso % (Auto) 1.2 % Neut # (Auto) 4.49 (1.40-6.50) K/uL Lymph # (Auto) 2.99 (1.2-3.4) K/uL [place] # (Auto) 0.65 H (0.11-0.59) K/uL Eos # (Auto) 0.28 (0-0.50) K/uL Baso # (Auto) 0.10 (0-0.2) K/uL Immature Gran # (Auto) 0.06 (0.01-0.20) K/uL Sodium 138 (136-145) mmol/L Potassium 3.9 (3.5-5.1) mmol/L Chloride 108 H (98-107) mmol/L Carbon Dioxide 24 (21-32) mmol/L Anion Gap 6 (3-11) BUN 19 (6-23) mg/dl Creatinine 0.85 (0.6-1.2) mg/dl Est Cr Clr Drug Dosing Not Reportable Est GFR ( Amer) 93.3 ml/min Est GFR (Non-Af Amer) 80.5 ml/min BUN/Creatinine Ratio 22.4 H (10-20) Glucose 83 (70-99(Fasting)) mg/dl Calcium 9.4 (8.5-10.1) mg/dl Total Bilirubin 0.4 (0.2-1.0) mg/dl AST 20 (13-39) U/L ALT 23 (7-52) U/L Alkaline Phosphatase 48 (34-104) U/L Total Protein 7.2 (6.0-8.3) gm/dl Albumin 4.0 (3.4-5.0) gm/dl Globulin 3.2 (2.5-4.0) gm/dl Albumin/Globulin Ratio 1.3 (0.9-2) TSH (0.300-4.500) uIu/ml Urine Color Urine Appearance (Clear) Urine pH (4.5-7.5) Ur Specific [place] (1.000-1.030) Urine Protein (Negative) Urine Glucose (UA) (Negative) Urine Ketones (Negative) Urine Blood (Negative) Urine Nitrite (Negative) Urine Bilirubin (Negative) Urine Urobilinogen (Negative) Ur Leukocyte Esterase (Negative) Urine WBC (Auto) (0-5) /hpf Urine RBC (Auto) (0-4) /hpf U Hyaline Cast (Auto) (0-5) /lpf U Epithel Cells (Auto) (0-5) /lpf Urine Bacteria (Auto) (Negative) POC Ur Test NEG (NEG) Salicylates (3.0-30) mg/dl Urine Opiates Screen (Neg) Ur Methadone, Qual (Neg) Acetaminophen (10-30) ug/ml Urine Barbiturates (Neg) Ur Phencyclidine (PCP) (Neg) U Amphetamin/Meth Scrn (Neg) MDMA (Ecstasy) Screen (Neg) U Benzodiazepines Scrn (Neg) Ur Cocaine Metabolite (Neg) U Marijuana (THC) Screen (Neg) Ethyl Alcohol mg/dL (<10.0) mg/dl SARS-CoV-2, RNA, NAAT (NEGATIVE) 05/31/22 05/31/22 05/31/22 Range/Units 15:46 15:46 15:46 WBC (4.8-10.8) K/ul RBC (4.20-5.40) M/uL Hgb (12.0-16.0) g/dl Hct (37.0-47.0) % MCV (80.0-100.0) fL MCH (25.0-34.0) pg MCHC (32.0-36.0) g/dL RDW Std Deviation (36.4-46.3) fL RDW Coeff of Kailee (11.5-14.5) % Plt Count (130-400) K/uL MPV (9.4-12.4) fL Immature Gran % (Auto) % Neut % (Auto) % Lymph % (Auto) % [place] % (Auto) % Eos % (Auto) % Baso % (Auto) % Neut # (Auto) (1.40-6.50) K/uL Lymph # (Auto) (1.2-3.4) K/uL [place] # (Auto) (0.11-0.59) K/uL Eos # (Auto) (0-0.50) K/uL Baso # (Auto) (0-0.2) K/uL Immature Gran # (Auto) (0.01-0.20) K/uL Sodium (136-145) mmol/L Potassium (3.5-5.1) mmol/L Chloride (98-107) mmol/L Carbon Dioxide (21-32) mmol/L Anion Gap (3-11) BUN (6-23) mg/dl Creatinine (0.6-1.2) mg/dl Est Cr Clr Drug Dosing Est GFR ( Amer) ml/min Est GFR (Non-Af Amer) ml/min BUN/Creatinine Ratio (10-20) Glucose (70-99(Fasting)) mg/dl Calcium (8.5-10.1) mg/dl Total Bilirubin (0.2-1.0) mg/dl AST (13-39) U/L ALT (7-52) U/L Alkaline Phosphatase (34-104) U/L Total Protein (6.0-8.3) gm/dl Albumin (3.4-5.0) gm/dl Globulin (2.5-4.0) gm/dl Albumin/Globulin Ratio (0.9-2) TSH 0.913 (0.300-4.500) uIu/ml Urine Color Urine Appearance (Clear) Urine pH (4.5-7.5) Ur Specific [place] (1.000-1.030) Urine Protein (Negative) Urine Glucose (UA) (Negative) Urine Ketones (Negative) Urine Blood (Negative) Urine Nitrite (Negative) Urine Bilirubin (Negative) Urine Urobilinogen (Negative) Ur Leukocyte Esterase (Negative) Urine WBC (Auto) (0-5) /hpf Urine RBC (Auto) (0-4) /hpf U Hyaline Cast (Auto) (0-5) /lpf U Epithel Cells (Auto) (0-5) /lpf Urine Bacteria (Auto) (Negative) POC Ur Test (NEG) Salicylates < 3.0 L (3.0-30) mg/dl Urine Opiates Screen (Neg) Ur Methadone, Qual (Neg) Acetaminophen < 3 L (10-30) ug/ml Urine Barbiturates (Neg) Ur Phencyclidine (PCP) (Neg) U Amphetamin/Meth Scrn (Neg) MDMA (Ecstasy) Screen (Neg) U Benzodiazepines Scrn (Neg) Ur Cocaine Metabolite (Neg) U Marijuana (THC) Screen (Neg) Ethyl Alcohol mg/dL < 10.0 (<10.0) mg/dl SARS-CoV-2, RNA, NAAT (NEGATIVE) Administered Medications Discontinued Medications Metformin HCl (Metformin Hcl 500 Mg Tab) 500 mg PO NOW STA Stop: 05/31/22 18:14 Last Admin: 05/31/22 18:39 Dose: 500 mg Documented By: GAUTAM Discharge Plan Visit Data Chief Complaint: Mental Health Evaluation ED Provider: Phill Peña Discharge Problem: Suicidal ideation Patient Disposition: Admitted As Inpatient Discharge Instructions Interventions: ED Discharge Assessment Last Done: 05/31/22 19:28
[2022-05-31] MEDS ORDERED: metFORMIN HCL 500 MG TAB PO STA (18:13)
[2022-05-31] MEDS ORDERED: BISMUTH SUBSALICYLATE LIQD 236 ML PO PRN (18:33)
[2022-05-31] MEDS ORDERED: ALUMINUM/MAGNESIUM SUSP 30 ML UDC PO PRN (18:33)
[2022-05-31] MEDS ORDERED: SODIUM CHLORIDE 0.65% NA SOLN 45 ML (OCEAN) PRN (18:33)
[2022-05-31] MEDS ORDERED: MAGNESIUM HYDROXIDE SUSP 30 ML UDC PO PRN (18:33)
[2022-05-31] MEDS ORDERED: ACETAMINOPHEN 325 MG TAB PO PRN (18:33)
[2022-05-31] MEDS ORDERED: hydrOXYzine HCl 25 MG TAB PO PRN ×2 (18:33)
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
[2022-06-01] MEDS ORDERED: RIZATRIPTAN BENZOATE 10 MG TAB PO PRN (13:51)
[2022-06-01] MEDS ORDERED: FLUTICASONE PROPIONATE NA SPR 16 GM BTL PRN (13:51)
[2022-06-01] MEDS ORDERED: ALBUTEROL HFA 8 GM INHALER INH PRN (13:51)
[2022-06-01] MEDS: DULoxetine HCL 60 MG CAP PO SCH (15:08)
[2022-06-01] MEDS: lamoTRIgine 100 MG TAB PO SCH (15:09)
[2022-06-01] MEDS: GABAPENTIN 800 MG TAB PO SCH ×2 (15:09→20:55)
[2022-06-01] MEDS: GABAPENTIN 300 MG CAP PO SCH ×2 (15:09→20:55)
[2022-06-01] MEDS: lisinopril 5 MG TAB PO SCH (15:10)
[2022-06-01] MEDS: FLUTICASONE/VILANTEROL 200/25MCG 14 PUFFS/INHALER INH SCH (15:11)
[2022-06-01] MEDS: metFORMIN HCL ER 500 MG TABCR PO SCH (17:01)
[2022-06-01] MEDS: CYCLOBENZAPRINE HCL 10 MG TAB PO SCH (20:54)
[2022-06-01] MEDS: DICYCLOMINE HCL 20 MG TAB PO SCH (20:55)
[2022-06-01] MEDS: FAMOTIDINE 20 MG TAB PO SCH (20:55)
[2022-06-01] MEDS: TOPIRAMATE 100 MG TAB PO SCH (20:56)
[2022-06-01] MEDS: AMITRIPTYLINE HCL 50 MG TAB PO SCH (20:56)
[2022-06-01] MEDS: hydrOXYzine HCl 25 MG TAB PO SCH (20:56)
[2022-06-01] MEDS: PRAZOSIN HCL 1 MG CAP PO SCH (20:58)
[2022-06-02] MEDS: LEVOTHYROXINE SODIUM 50 MCG TABLET PO SCH (07:53)
[2022-06-02] MEDS: CYANOCOBALAMIN (B-12) 500 MCG TABLET PO SCH (08:51)
[2022-06-02] MEDS: CYCLOBENZAPRINE HCL 10 MG TAB PO SCH ×2 (08:51→20:54)
[2022-06-02] MEDS: FLUTICASONE/VILANTEROL 200/25MCG 14 PUFFS/INHALER INH SCH (08:52)
[2022-06-02] MEDS: FERROUS SULFATE 325 MG TAB PO SCH (08:52)
[2022-06-02] MEDS: DICYCLOMINE HCL 20 MG TAB PO SCH ×2 (08:52→20:55)
[2022-06-02] MEDS: DULoxetine HCL 60 MG CAP PO SCH (08:52)
[2022-06-02] MEDS: DOCUSATE SODIUM 100 MG CAP PO SCH (08:52)
[2022-06-02] MEDS: GABAPENTIN 300 MG CAP PO SCH ×3 (08:53→20:56)
[2022-06-02] MEDS: GABAPENTIN 800 MG TAB PO SCH ×3 (08:53→20:56)
[2022-06-02] MEDS: TOPIRAMATE 100 MG TAB PO SCH ×2 (08:53→20:55)
[2022-06-02] MEDS: VITAMIN B COMPLEX TAB PO SCH (08:53)
[2022-06-02] MEDS: PANTOprazole 40 MG TAB PO SCH (08:53)
[2022-06-02] MEDS: MAGNESIUM OXIDE 400 MG TAB PO SCH (08:54)
[2022-06-02] MEDS: lamoTRIgine 100 MG TAB PO SCH (08:54)
[2022-06-02] MEDS: lisinopril 5 MG TAB PO SCH (08:54)
[2022-06-02] MEDS: LIDOCAINE 5% 1 PATCH TD PRN (15:23)
--- NOTE | 2022-06-02 16:58 | Psychiatric Progress Note ---
Date of Service June 02, 2022 Impression / Recommendations Impression 47 year old with a history of bipolar II, generalized anxiety, PTSD, chronic back pain with a history of two prior suicide attempts via overdose who was admitted for worsening depression and SI with plan of overdosing. The patient is deemed unstable and requires psychiatric hospitalization for diagnostic clarification, safety and stabilization, medication management and development of further coping skills. 06/02/2022: Remains depressed but mood improving a bit and finding supportive environment helpful for processing recent stressors. Declines medication changes as she feels lower mood due to recent stressors. (1) Bipolar 2 disorder, major depressive episode: (2) PTSD (post-traumatic stress disorder): (3) [place] (generalized anxiety disorder): Plan 06/02/2022: Continue current medications and tx plan. 06/01/2022: * The patient was admitted to the [facility] ([facility]) on q15 min checks (behavioral with suicide precautions) for safety. The patient will participate in group, recreational, and milieu therapies and will be offered additional individual and family sessions as clinically appropriate. * Will continue duloxetine 60 mg daily, prazosin 4 mg QHS, gabapentin 1100 mg TID, lamotrigine 200 mg daily, topiramate 200 mg BID, amitriptyline 25 mg QHS (not all of which may necessarily be being used for psychiatric symptoms as opposed to seizuires or pain) unchanged for now. Inventory Assets Strengths: good support from family, strong congregation ties/community, good rapport with outpatient providers Needs: safety and stabilization, possible medication adjustment, additional coping skills Suicide Risk Level Suicide Risk Level: Moderate (q15 min suicide checks) (SI with plan prior to admission and depression but mood improving and feels safe in the hospital and agrees to let nurses know if she feels unable to remain safe ) Risk Factors Assessment Male: No : Yes Do You Have Access To A Gun?: No Health Problems: Yes Mental Health Diagnoses: Yes Previous Attempt: Yes Protective Factors Assessment Jain Beliefs: Yes Employed: No Supportive Family: Yes Good Rapport with Provider: Yes Interval History Identifying Information DONALD RAMIREZ is a 47-year-old F who currently lives in [place] with her mother, has a history of bipolar II disorder, PTSD, and possibly [place], and was admitted on 05/31/22 19:43 on a 201 voluntary commitment for suicidal thoughts. Chief Complaint "It really traumatized me". Review of Systems Sleep Information Total Hours of Sleep: 5.5 Meal Information Percent Meal Consumed - Breakfast: 100 Percent Meal Consumed - Lunch: 100 Percent Meal Consumed - Dinner: 100 Subjective Subjective Patient was seen & assessed and interval progress reviewed with treatment team nursing and social work. Attending groups, participating. She describes increased stress and feeling traumatized due to recent legal charges that have since been dropped and how this caused worsening of her mood and SI. Doing well here, feels well supported. Feels her medications work well, prefers not to change these. Struggled to sleep last night with multiple overnight awakenings. Physical Exam Psychiatric Orientation: alert and oriented x 3 Apperance: appropriately dressed and appropriately groomed Eye Contact: good eye contact Motor Behavior: steady gait and station and no abnormal motor movements Speech: normal rate/rhythm/volume of speech Affect: + constricted affect Mood: + depressed mood and + anxious mood Thought Process: + circumstantial thought process Thought Content: + cognitive distortions and + loneliness Suicidal Thoughts: denies suicidal plan and denies suicidal intent; + reports suicidal thoughts Homicidal Thoughts: denies homicidal thoughts Hallucinations: no auditory hallucinations and no visual hallucinations Cognition: recent memory grossly intact and remote memory grossly intact Estimated Intelligence: consistent with education level Insight: + limited insight Judgment: + limited judgement Vital Signs (Past 24 Hours) Last Vital Signs Temp 36.6 C 06/02/22 06:55 Pulse 92 H 06/02/22 06:55 Resp 16 06/02/22 06:55 BP 112/78 06/02/22 06:57 Pulse Ox 96 06/02/22 06:55 O2 Del Method Room Air 06/02/22 06:55 Results & Data ([facility]) Current Inpatient Medications Current Inpatient Medications: Current Inpatient Medications Acetaminophen (Acetaminophen 325 Mg Tab) 650 mg PO Q4H PRN PRN Reason: Headache or Minor Fever Stop: 06/30/22 18:32 Al Hydrox/Mg Hydrox/Simethicone (Aluminum/Magnesium Susp 30 Ml Udc) 30 ml PO Q4H PRN PRN Reason: GI Upset Stop: 06/30/22 18:32 Albuterol (Albuterol Hfa 8 Gm Inhaler) 1 puffs INH QID PRN PRN Reason: Wheezing Stop: 07/01/22 13:50 Amitriptyline HCl (Amitriptyline Hcl 50 Mg Tab) 50 mg PO HS [facility] Stop: 07/01/22 21:59 Last Admin: 06/01/22 20:56 Dose: 50 mg Bismuth Subsalicylate (Bismuth Subsalicylate Liqd 236 Ml) 15 ml PO PRN PRN PRN Reason: Loose Stool Stop: 06/30/22 18:32 Cyanocobalamin (Cyanocobalamin (B-12) 500 Mcg Tablet) 1,000 mcg PO QAM [facility] Stop: 07/02/22 08:59 Last Admin: 06/02/22 08:51 Dose: 1,000 mcg Cyclobenzaprine HCl (Cyclobenzaprine Hcl 10 Mg Tab) 10 mg PO AMHS [facility] Stop: 07/01/22 20:59 Last Admin: 06/02/22 08:51 Dose: 10 mg Dicyclomine HCl (Dicyclomine Hcl 20 Mg Tab) 20 mg PO BID [facility] Stop: 07/01/22 20:59 Last Admin: 06/02/22 08:52 Dose: 20 mg Docusate Sodium (Docusate Sodium 100 Mg Cap) 100 mg PO QAM [facility] Stop: 07/02/22 08:59 Last Admin: 06/02/22 08:52 Dose: 100 mg Duloxetine HCl (Duloxetine Hcl 60 Mg Cap) 60 mg PO QAM [facility] Stop: 07/01/22 13:59 Last Admin: 06/02/22 08:52 Dose: 60 mg Famotidine (Famotidine 20 Mg Tab) 20 mg PO HS [facility] Stop: 07/01/22 21:59 Last Admin: 06/01/22 20:55 Dose: 20 mg Ferrous Sulfate (Ferrous Sulfate 325 Mg Tab) 325 mg PO QAM [facility] Stop: 07/02/22 08:59 Last Admin: 06/02/22 08:52 Dose: 325 mg Fluticasone Propionate (Fluticasone Propionate Na Spr 16 Gm Btl) 2 sprays NA DAILY PRN PRN Reason: Allergy Symptoms Stop: 07/01/22 13:50 Fluticasone/Vilanterol (Fluticasone/Vilanterol 200/25mcg 14 Puffs/Inhaler) 1 puffs INH QAM [facility] Stop: 07/01/22 13:59 Last Admin: 06/02/22 08:52 Dose: 1 puffs Gabapentin (Gabapentin 800 Mg Tab) 800 mg PO TID [facility] Stop: 07/01/22 13:59 Last Admin: 06/02/22 13:54 Dose: 800 mg Gabapentin (Gabapentin 300 Mg Cap) 300 mg PO TID [facility] Stop: 07/01/22 13:59 Last Admin: 06/02/22 13:57 Dose: 300 mg Hydroxyzine HCl (Hydroxyzine Hcl 25 Mg Tab) 25 mg PO Q4H PRN PRN Reason: Anxiety Stop: 06/30/22 18:32 Hydroxyzine HCl (Hydroxyzine Hcl 25 Mg Tab) 50 mg PO HSZ PRN PRN Reason: Insomnia Stop: 06/30/22 18:32 Last Admin: 05/31/22 22:21 Dose: 50 mg Hydroxyzine HCl (Hydroxyzine Hcl 25 Mg Tab) 50 mg PO HS [facility] Stop: 07/01/22 21:59 Last Admin: 06/01/22 20:56 Dose: 50 mg Lamotrigine (Lamotrigine 100 Mg Tab) 200 mg PO QAM [facility] Stop: 07/01/22 13:59 Last Admin: 06/02/22 08:54 Dose: 200 mg Levothyroxine Sodium (Levothyroxine Sodium 50 Mcg Tablet) 50 mcg PO DAILYBB [facility] Stop: 07/02/22 07:59 Last Admin: 06/02/22 07:53 Dose: 50 mcg Lidocaine (Lidocaine 5% 1 Patch) 1 patch TD DAILY PRN PRN Reason: pain Stop: 07/01/22 13:50 Last Admin: 06/02/22 15:23 Dose: 1 patch Lisinopril (Lisinopril 5 Mg Tab) 5 mg PO QAM [facility] Stop: 07/01/22 13:59 Last Admin: 06/02/22 08:54 Dose: 5 mg Magnesium Hydroxide (Magnesium Hydroxide Susp 30 Ml Udc) 30 ml PO DAILY PRN PRN Reason: Constipation Stop: 06/30/22 18:32 Magnesium Oxide (Magnesium Oxide 400 Mg Tab) 400 mg PO QAM [facility] Stop: 07/02/22 08:59 Last Admin: 06/02/22 08:54 Dose: 400 mg Metformin HCl (Metformin Hcl Er 500 Mg Tabcr) 500 mg PO QDD [facility] Stop: 07/01/22 17:44 Last Admin: 06/01/22 17:01 Dose: 500 mg Miscellaneous (Remove Lidoderm Patch) 1 each N/A DAILY@2100 [facility] Stop: 07/01/22 20:59 Last Admin: 06/01/22 21:00 Dose: Not Given Miscellaneous (Oral Contraceptive - Order Awaiting Action) 1 each N/A QS [facility] Stop: 07/01/22 15:59 Last Admin: 06/02/22 08:13 Dose: Not Given Pantoprazole Sodium (Pantoprazole 40 Mg Tab) 40 mg PO QAM [facility] Stop: 07/02/22 08:59 Last Admin: 06/02/22 08:53 Dose: 40 mg Prazosin HCl (Prazosin Hcl 1 Mg Cap) 4 mg PO HS [facility] Stop: 07/01/22 21:59 Last Admin: 06/01/22 20:58 Dose: 4 mg Rizatriptan Benzoate (Rizatriptan Benzoate 10 Mg Tab) 10 mg PO UD PRN PRN Reason: Migraine Headache Stop: 07/01/22 13:50 Last Admin: 06/02/22 15:21 Dose: 10 mg Sodium Chloride (Sodium Chloride 0.65% Na Soln 45 Ml ([place])) 1 - 2 sprays NA PRN PRN PRN Reason: Nasal Dryness/Congestion Stop: 06/30/22 18:32 Topiramate (Topiramate 100 Mg Tab) 200 mg PO AMHS [facility] Stop: 07/01/22 20:59 Last Admin: 06/02/22 08:53 Dose: 200 mg Vitamin B Complex (Vitamin B Complex Tab) 1 tab PO DAILY [facility] Stop: 07/02/22 08:59 Last Admin: 06/02/22 08:53 Dose: 1 tab Mental Health & Subst Abuse Tx Therapist Date of Therapist Appointment: Patricia grajeda [place]
[2022-06-02] MEDS: metFORMIN HCL ER 500 MG TABCR PO SCH (17:12)
[2022-06-02] MEDS: FAMOTIDINE 20 MG TAB PO SCH (20:55)
[2022-06-02] MEDS: hydrOXYzine HCl 25 MG TAB PO SCH (20:56)
[2022-06-02] MEDS: PRAZOSIN HCL 1 MG CAP PO SCH (20:56)
[2022-06-02] MEDS: AMITRIPTYLINE HCL 50 MG TAB PO SCH (21:04)
--- NOTE | 2022-06-03 08:39 | Psychiatric Progress Note ---
Date of Service June 03, 2022 Impression / Recommendations Impression 47 year old with a history of bipolar II, generalized anxiety, PTSD, chronic back pain with a history of two prior suicide attempts via overdose who was admitted for worsening depression and SI with plan of overdosing. The patient is deemed unstable and requires psychiatric hospitalization for diagnostic clarification, safety and stabilization, medication management and development of further coping skills. 06/03/2022: Mood improving, still with anxiety and poor sleep. Processing and practicing coping skills to help manage recent stressors and re-exposure to these after she leaves the hospital. (1) Bipolar 2 disorder, major depressive episode: (2) PTSD (post-traumatic stress disorder): (3) [place] (generalized anxiety disorder): Plan 06/03/2022: Continue current medications and tx plan. 06/02/2022: Continue current medications and tx plan. 06/01/2022: * The patient was admitted to the [facility] ([facility]) on q15 min checks (behavioral with suicide precautions) for safety. The patient will participate in group, recreational, and milieu therapies and will be offered additional individual and family sessions as clinically appropriate. * Will continue duloxetine 60 mg daily, prazosin 4 mg QHS, gabapentin 1100 mg TID, lamotrigine 200 mg daily, topiramate 200 mg BID, amitriptyline 25 mg QHS (not all of which may necessarily be being used for psychiatric symptoms as opposed to seizuires or pain) unchanged for now. Inventory Assets Strengths: good support from family, strong baptism ties/community, good rapport with outpatient providers Needs: safety and stabilization, possible medication adjustment, additional coping skills Suicide Risk Level Suicide Risk Level: Moderate (q15 min suicide checks) (SI with plan prior to admission and depression but mood improving and feels safe in the hospital and agrees to let nurses know if she feels unable to remain safe ) Risk Factors Assessment Male: No : Yes Do You Have Access To A Gun?: No Health Problems: Yes Mental Health Diagnoses: Yes Previous Attempt: Yes Protective Factors Assessment Advent Beliefs: Yes Employed: No Supportive Family: Yes Good Rapport with Provider: Yes Interval History Identifying Information DONALD RAMIREZ is a 47-year-old F who currently lives in [place] with her mother, has a history of bipolar II disorder, PTSD, and possibly [place], and was admitted on 05/31/22 19:43 on a 201 voluntary commitment for suicidal thoughts. Chief Complaint "I worry about walking past their house again, that makes me anxious". Review of Systems Sleep Information Total Hours of Sleep: 6 Meal Information Percent Meal Consumed - Breakfast: 100 Percent Meal Consumed - Lunch: 100 Percent Meal Consumed - Dinner: 100 Subjective Subjective Patient was seen & assessed and interval progress reviewed with treatment team nursing and social work. Attending groups and participating. Mood is improving, still some anxiety about walking past home that accused her of throwing away dog poop that lead to recent, but now dropped legal charges. processed this and ways to slowly get exposure to walking past their home again and utilizing other coping skills. Did not sleep well last night due to multiple awakenings. No side effects from her medications. Physical Exam Psychiatric Orientation: alert and oriented x 3 Apperance: appropriately dressed and appropriately groomed Eye Contact: good eye contact Motor Behavior: steady gait and station and no abnormal motor movements Speech: normal rate/rhythm/volume of speech Affect: euthymic affect (smiling at times with peers and in discussing topics of interest) and + anxious affect Mood: + anxious mood Thought Process: goal directed thought process and linear/logical thought process Thought Content: reality based without delusions Suicidal Thoughts: denies suicidal thoughts, denies suicidal plan and denies suicidal intent Homicidal Thoughts: denies homicidal thoughts Hallucinations: no auditory hallucinations and no visual hallucinations Cognition: recent memory grossly intact and remote memory grossly intact Estimated Intelligence: consistent with education level Insight: + fair insight Judgment: + fair judgement Vital Signs (Past 24 Hours) Last Vital Signs Temp 36.7 C 06/03/22 06:00 Pulse 82 06/03/22 06:47 Resp 18 06/03/22 06:00 BP 107/72 06/03/22 06:47 Pulse Ox 96 06/02/22 06:55 O2 Del Method Room Air 06/02/22 06:55 Results & Data (U) Current Inpatient Medications Current Inpatient Medications: Current Inpatient Medications Acetaminophen (Acetaminophen 325 Mg Tab) 650 mg PO Q4H PRN PRN Reason: Headache or Minor Fever Stop: 06/30/22 18:32 Al Hydrox/Mg Hydrox/Simethicone (Aluminum/Magnesium Susp 30 Ml Udc) 30 ml PO Q4H PRN PRN Reason: GI Upset Stop: 06/30/22 18:32 Albuterol (Albuterol Hfa 8 Gm Inhaler) 1 puffs INH QID PRN PRN Reason: Wheezing Stop: 07/01/22 13:50 Amitriptyline HCl (Amitriptyline Hcl 50 Mg Tab) 50 mg PO HS [facility] Stop: 07/01/22 21:59 Last Admin: 06/02/22 21:04 Dose: 50 mg Bismuth Subsalicylate (Bismuth Subsalicylate Liqd 236 Ml) 15 ml PO PRN PRN PRN Reason: Loose Stool Stop: 06/30/22 18:32 Cyanocobalamin (Cyanocobalamin (B-12) 500 Mcg Tablet) 1,000 mcg PO QAM [facility] Stop: 07/02/22 08:59 Last Admin: 06/02/22 08:51 Dose: 1,000 mcg Cyclobenzaprine HCl (Cyclobenzaprine Hcl 10 Mg Tab) 10 mg PO [facility] Stop: 07/01/22 20:59 Last Admin: 06/02/22 20:54 Dose: 10 mg Dicyclomine HCl (Dicyclomine Hcl 20 Mg Tab) 20 mg PO BID [facility] Stop: 07/01/22 20:59 Last Admin: 06/02/22 20:55 Dose: 20 mg Docusate Sodium (Docusate Sodium 100 Mg Cap) 100 mg PO QAM [facility] Stop: 07/02/22 08:59 Last Admin: 06/02/22 08:52 Dose: 100 mg Duloxetine HCl (Duloxetine Hcl 60 Mg Cap) 60 mg PO QAM [facility] Stop: 07/01/22 13:59 Last Admin: 06/02/22 08:52 Dose: 60 mg Famotidine (Famotidine 20 Mg Tab) 20 mg PO [facility] Stop: 07/01/22 21:59 Last Admin: 06/02/22 20:55 Dose: 20 mg Ferrous Sulfate (Ferrous Sulfate 325 Mg Tab) 325 mg PO QAM [facility] Stop: 07/02/22 08:59 Last Admin: 06/02/22 08:52 Dose: 325 mg Fluticasone Propionate (Fluticasone Propionate Na Spr 16 Gm Btl) 2 sprays NA DAILY PRN PRN Reason: Allergy Symptoms Stop: 07/01/22 13:50 Fluticasone/Vilanterol (Fluticasone/Vilanterol 200/25mcg 14 Puffs/Inhaler) 1 puffs INH QAM [facility] Stop: 07/01/22 13:59 Last Admin: 06/02/22 08:52 Dose: 1 puffs Gabapentin (Gabapentin 800 Mg Tab) 800 mg PO TID [facility] Stop: 07/01/22 13:59 Last Admin: 06/02/22 20:56 Dose: 800 mg Gabapentin (Gabapentin 300 Mg Cap) 300 mg PO TID [facility] Stop: 07/01/22 13:59 Last Admin: 06/02/22 20:56 Dose: 300 mg Hydroxyzine HCl (Hydroxyzine Hcl 25 Mg Tab) 25 mg PO Q4H PRN PRN Reason: Anxiety Stop: 06/30/22 18:32 Hydroxyzine HCl (Hydroxyzine Hcl 25 Mg Tab) 50 mg PO HSZ PRN PRN Reason: Insomnia Stop: 06/30/22 18:32 Last Admin: 05/31/22 22:21 Dose: 50 mg Hydroxyzine HCl (Hydroxyzine Hcl 25 Mg Tab) 50 mg PO HS [facility] Stop: 07/01/22 21:59 Last Admin: 06/02/22 20:56 Dose: 50 mg Lamotrigine (Lamotrigine 100 Mg Tab) 200 mg PO QAM [facility] Stop: 07/01/22 13:59 Last Admin: 06/02/22 08:54 Dose: 200 mg Levothyroxine Sodium (Levothyroxine Sodium 50 Mcg Tablet) 50 mcg PO DAILYBB [facility] Stop: 07/02/22 07:59 Last Admin: 06/02/22 07:53 Dose: 50 mcg Lidocaine (Lidocaine 5% 1 Patch) 1 patch TD DAILY PRN PRN Reason: pain Stop: 07/01/22 13:50 Last Admin: 06/02/22 15:23 Dose: 1 patch Lisinopril (Lisinopril 5 Mg Tab) 5 mg PO QAM [facility] Stop: 07/01/22 13:59 Last Admin: 06/02/22 08:54 Dose: 5 mg Magnesium Hydroxide (Magnesium Hydroxide Susp 30 Ml Udc) 30 ml PO DAILY PRN PRN Reason: Constipation Stop: 06/30/22 18:32 Magnesium Oxide (Magnesium Oxide 400 Mg Tab) 400 mg PO QAM [facility] Stop: 07/02/22 08:59 Last Admin: 06/02/22 08:54 Dose: 400 mg Metformin HCl (Metformin Hcl Er 500 Mg Tabcr) 500 mg PO QDD [facility] Stop: 07/01/22 17:44 Last Admin: 06/02/22 17:12 Dose: 500 mg Miscellaneous (Remove Lidoderm Patch) 1 each N/A DAILY@2100 [facility] Stop: 07/01/22 20:59 Last Admin: 06/02/22 21:05 Dose: 1 each Miscellaneous (Oral Contraceptive - Order Awaiting Action) 1 each N/A QS [facility] Stop: 07/01/22 15:59 Last Admin: 06/02/22 23:33 Dose: Not Given Pantoprazole Sodium (Pantoprazole 40 Mg Tab) 40 mg PO QAM [facility] Stop: 07/02/22 08:59 Last Admin: 06/02/22 08:53 Dose: 40 mg Prazosin HCl (Prazosin Hcl 1 Mg Cap) 4 mg PO HS [facility] Stop: 07/01/22 21:59 Last Admin: 06/02/22 20:56 Dose: 4 mg Rizatriptan Benzoate (Rizatriptan Benzoate 10 Mg Tab) 10 mg PO UD PRN PRN Reason: Migraine Headache Stop: 07/01/22 13:50 Last Admin: 06/02/22 15:21 Dose: 10 mg Sodium Chloride (Sodium Chloride 0.65% Na Soln 45 Ml ([place])) 1 - 2 sprays NA PRN PRN PRN Reason: Nasal Dryness/Congestion Stop: 06/30/22 18:32 Topiramate (Topiramate 100 Mg Tab) 200 mg PO AMHS [facility] Stop: 07/01/22 20:59 Last Admin: 06/02/22 20:55 Dose: 200 mg Vitamin B Complex (Vitamin B Complex Tab) 1 tab PO DAILY [facility] Stop: 07/02/22 08:59 Last Admin: 06/02/22 08:53 Dose: 1 tab Mental Health & Subst Abuse Tx Therapist Date of Therapist Appointment: Patricia grajeda [place]
[2022-06-03] MEDS: LEVOTHYROXINE SODIUM 50 MCG TABLET PO SCH (08:45)
[2022-06-03] MEDS: PANTOprazole 40 MG TAB PO SCH (09:36)
[2022-06-03] MEDS: CYCLOBENZAPRINE HCL 10 MG TAB PO SCH ×2 (09:36→20:55)
[2022-06-03] MEDS: GABAPENTIN 300 MG CAP PO SCH ×3 (09:36→20:56)
[2022-06-03] MEDS: MAGNESIUM OXIDE 400 MG TAB PO SCH (09:36)
[2022-06-03] MEDS: FERROUS SULFATE 325 MG TAB PO SCH (09:36)
[2022-06-03] MEDS: GABAPENTIN 800 MG TAB PO SCH ×3 (09:36→20:56)
[2022-06-03] MEDS: CYANOCOBALAMIN (B-12) 500 MCG TABLET PO SCH (09:36)
[2022-06-03] MEDS: TOPIRAMATE 100 MG TAB PO SCH ×2 (09:36→20:55)
[2022-06-03] MEDS: DOCUSATE SODIUM 100 MG CAP PO SCH (09:37)
[2022-06-03] MEDS: DICYCLOMINE HCL 20 MG TAB PO SCH ×2 (09:37→20:56)
[2022-06-03] MEDS: VITAMIN B COMPLEX TAB PO SCH (09:37)
[2022-06-03] MEDS: lamoTRIgine 100 MG TAB PO SCH (09:37)
[2022-06-03] MEDS: FLUTICASONE/VILANTEROL 200/25MCG 14 PUFFS/INHALER INH SCH (09:37)
[2022-06-03] MEDS: DULoxetine HCL 60 MG CAP PO SCH (09:37)
[2022-06-03] MEDS: lisinopril 5 MG TAB PO SCH (09:37)
[2022-06-03] MEDS: LIDOCAINE 5% 1 PATCH TD PRN (10:34)
[2022-06-03] MEDS: metFORMIN HCL ER 500 MG TABCR PO SCH (17:21)
[2022-06-03] MEDS: FAMOTIDINE 20 MG TAB PO SCH (20:55)
[2022-06-03] MEDS: AMITRIPTYLINE HCL 50 MG TAB PO SCH (20:55)
[2022-06-03] MEDS: hydrOXYzine HCl 25 MG TAB PO SCH (20:55)
[2022-06-03] MEDS: PRAZOSIN HCL 1 MG CAP PO SCH (20:56)
[2022-06-04] MEDS: LEVOTHYROXINE SODIUM 50 MCG TABLET PO SCH (08:07)
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
[2022-06-04] MEDS: DULoxetine HCL 60 MG CAP PO SCH (08:56)
[2022-06-04] MEDS: MAGNESIUM OXIDE 400 MG TAB PO SCH (08:56)
[2022-06-04] MEDS: lamoTRIgine 100 MG TAB PO SCH (08:56)
[2022-06-04] MEDS: lisinopril 5 MG TAB PO SCH (08:56)
[2022-06-04] MEDS: FERROUS SULFATE 325 MG TAB PO SCH (08:56)
[2022-06-04] MEDS: DOCUSATE SODIUM 100 MG CAP PO SCH (08:56)
[2022-06-04] MEDS: CYANOCOBALAMIN (B-12) 500 MCG TABLET PO SCH (08:57)
[2022-06-04] MEDS: GABAPENTIN 800 MG TAB PO SCH ×2 (08:57→14:12)
[2022-06-04] MEDS: PANTOprazole 40 MG TAB PO SCH (08:57)
[2022-06-04] MEDS: GABAPENTIN 300 MG CAP PO SCH ×2 (08:57→14:12)
[2022-06-04] MEDS: VITAMIN B COMPLEX TAB PO SCH (08:57)
[2022-06-04] MEDS: CYCLOBENZAPRINE HCL 10 MG TAB PO SCH (08:57)
[2022-06-04] MEDS: TOPIRAMATE 100 MG TAB PO SCH (08:57)
[2022-06-04] MEDS: DICYCLOMINE HCL 20 MG TAB PO SCH (08:57)
[2022-06-04] MEDS: FLUTICASONE/VILANTEROL 200/25MCG 14 PUFFS/INHALER INH SCH (08:58)
[2022-06-04] MEDS: LIDOCAINE 5% 1 PATCH TD PRN (11:14)
== END 2022-06-04 16:39 | disposition home or self-care (01) | DRG 885 ==
LOC: ED 15:04 → 3S 19:43 → SUATTDRO 19:43

== ENCOUNTER 2022-07-10 20:08 | Inpatient (IN) ==
[2022-07-10] MEDS ORDERED: ALBUTEROL HFA 8 GM INHALER INH PRN (21:01)
[2022-07-10] MEDS ORDERED: DICYCLOMINE HCL 20 MG TAB PO SCH (21:15)
[2022-07-10 21:16] LABS: Appearance Urine Cloudy (Clear); Bacteria Urine Automated 2+ (Negative); Bilirubin Urine Negative (Negative); Blood Urine Negative (Negative); Color Urine Yellow; Epithelial Cell Urine Auto >30 /lpf (0-5); Glucose Urine UA Negative (Negative); Ketones Urine Negative (Negative); Leukocyte Esterase Urine Trace (Negative); Nitrite Urine Negative (Negative); Protein Urine Negative (Negative); RBC Urine Automated 0-4 /hpf (0-4); Specific Gravity Urine 1.021 (1.000-1.030); Urobilinogen Urine Negative (Negative); pH Urine 7.5 (4.5-7.5)
--- NOTE | 2022-07-10 21:24 | Emergency Department Note ---
Impression & Plan Depression with suicidal ideation ED Provider Note Provider: Semaj Bond MD DATE OF SERVICE: 07/10/2022 CHIEF COMPLAINT: Suicidal thoughts HISTORY OF PRESENT ILLNESS: Patient is a 47-year-old female history of PTSD and bipolar disorder with prior suicide attempts presenting here today referred by crisis due to worsening depression and thoughts of wanting to harm her self. Recently hospitalized. States many medication changes. Saw psychiatrist today. Denies any thoughts to hurt others but denied having thoughts of wanting to harm her self. Has prior attempts at suicide in the past. Did try to use something to cut her left wrist some but was not very successful. Denies overdo sing on pills or any drug or alcohol issues today. States she believes she needs inpatient treatment again. She has not been sleeping well. PAST MEDICAL HISTORY: As noted above MEDICATIONS: Reviewed with her at bedside Home medication SOCIAL HISTORY: Lives with mother, denies drug or alcohol use PHYSICAL EXAM: GENERAL: alert and oriented in no acute distress on stretcher Head: normocephalic and atraumatic EYES: No injection, discharge or icterus. NECK: Trachea midline. ENT: Mucous membranes pink and moist. LUNGS: Airway patent. No retractions. Breath sounds clear with good air entry bilaterally. HEART: Regular rate and rhythm. No chest wall tenderness SKIN: Acyanotic, warm, dry, without rashes EXTREMITIES: Without swelling, tenderness or deformity NEUROLOGICAL: No focal deficits. No aphasia. No slurred speech. Ambulatory. Psych: Endorses suicidal thoughts but denies any homicidal thoughts. Not responding to external stimuli and denies any hallucinations. Slightly alena ened affect Patient's laboratory studies reviewed. Differential includes Mood disorder, infection, hypoglycemia, electrolyte abnormalities, cardiac sources, intracerebral event, toxicologic, trauma, neurologic, as well as other pathologies. IMPRESSION/MEDICAL DECISION MAKING: Patient with a long psychiatric history recent hospitalization with medication changes. Reviewed prior ER records hospitalization record from [facility] here. Now having thoughts when to harm her self and attempted to cut her left wrist but there is no evidence of any significant trauma or laceration or even really abrasion today. Basic labs obtained. Seen with case management. We will make referrals on a voluntary basis given her wishes. Not wanting to harm others at this time. Patient denies any urinary symptoms with a contaminated urine. Will follow culture at this point. Bed referrals initiated. DIAGNOSIS: Depression with suicidal ideation DISPOSITION: Signed out pending placement on a voluntary basis for inpatient psychiatric care Past Med/Surg History Medical History ALEXANDR (acute kidney injury) Anemia Anxiety Asthma USES PRN INH APPROX 1-2 X MONTHLY; DENIES RECENT EXAC Bipolar 1 disorder Chest pain follows with [facility] cardio records, atypical, attributed to GI etiology and anxiety Closed head injury R/T FALL IN 2017; REPORTS CONCUSSION COVID-19 07/25/20 > not hospitalized Depression with suicidal ideation E. coli septicemia Fibroadenoma of breast RT Fibromyalgia Gastroparesis GERD (gastroesophageal reflux disease) Hx of prolonged Q-T interval on ECG PER PT'S MEDICAL RECORD FROM PCP OFFICE. Hx of sepsis hospitalized at [facility] Feb 2022 for this > resolved per pt Hydronephrosis due to obstruction of ureter Hypothyroidism Irregular menses Kidney stone Migraine Obesity PCO (polycystic ovaries) Peripheral neuropathy Poor historian Prediabetes PTSD (post-traumatic stress disorder) Pyelonephritis Recurrent UTI Sepsis Sleep apnea NO CPAP Surgical History H/O lithotripsy History of ankle surgery RT History of breast biopsy RT History of cystoscopy History of esophagogastroduodenoscopy (EGD) Hx of cholecystectomy Hx of colonoscopy Hx of knee surgery RT Status post labral repair of shoulder RT Family History Father Heart disease Other No significant family history Social History Smoking Status: Never smoker Second Hand Exposure: No; Hx Alcohol Use: No Hx Substance Use: No Preferred Language: Spanish Communication Ability: Effective Visual Impairment: No Limitations Hearing Ability: Hard of Hearing Hearing Impaired Teacher Required: No Beliefs That Will Affect Care: Anabaptism Anabaptism Beliefs: Restorationism marital status: Single Current Living Situation: Family Current Living Situation Comment: lives w/ mom. disabled. no drivers license current occupational status: disabled Feels Safe at Home: Yes Gender Identity: Female Assistive Devices: Glasses Allergies Allergies Allergy/AdvReac Type Severity Reaction Status Date / Time bee venom protein (honey bee) Allergy Severe ANAPHYLAXIS Verified 04/26/22 11:51 morphine AdvReac Intermediate HALLUCINATI Verified 01/12/23 11:51 ONS Home Meds Home Medications Medication Instructions Recorded Confirmed cyclobenzaprine 10 mg tablet 10 mg PO AMHS 01/10/18 07/10/22 docusate sodium 100 mg capsule 100 mg PO QAM 01/10/18 07/10/22 (Colace) epinephrine 0.3 mg/0.3 mL 0.3 mg IM DIRECTED PRN Severe 01/10/18 07/10/22 injection, auto-injector (EpiPen) Allergic Reaction ferrous sulfate 325 mg (65 mg 325 mg PO QAM 01/10/18 07/10/22 iron) tablet (Feosol) fluticasone furoate 200 1 inh inhalation QAM 01/10/18 07/10/22 mcg-vilanterol 25 mcg/dose inhalation powder (Breo Ellipta) fluticasone propionate 50 2 spray intranasal DAILY PRN 01/10/18 07/10/22 mcg/actuation nasal Allergy Symptoms spray,suspension (Flonase Allergy Relief) gabapentin 800 mg tablet 800 mg PO TID 01/10/18 07/10/22 levothyroxine 50 mcg tablet 50 mcg PO DAILYBB 01/10/18 07/10/22 pantoprazole 40 mg tablet,delayed 40 mg PO QAM 01/10/18 07/10/22 release (Protonix) rizatriptan 10 mg tablet (Maxalt) 10 mg PO DIRECTED PRN Migraine 01/10/18 07/10/22 Headache topiramate 200 mg tablet (Topamax) 200 mg PO AMHS 05/25/18 07/10/22 cetirizine 10 mg tablet (Zyrtec) 10 mg PO QAM 09/20/18 07/10/22 Lactobacillus comb 1 cap PO QAM 10/14/18 07/10/22 [id number] 300 million cell-250 mg capsule (Probiotic and Acidophilus) magnesium oxide 400 mg PO QAM 04/07/19 07/10/22 gabapentin 300 mg capsule 300 mg PO TID 08/08/19 07/10/22 (Neurontin) ondansetron 4 mg disintegrating 4 mg PO Q8H PRN Nausea 08/08/19 07/10/22 tablet cranberry 500 mg capsule 500 mg PO QAM 02/14/20 07/10/22 cyanocobalamin (vitamin B-12) 1,000 mcg PO QAM 02/14/20 07/10/22 1,000 mcg tablet (Vitamin B-12) norethindrone 1.5 mg-ethinyl 1 tab PO QAM 02/14/20 07/10/22 estradiol 30 mcg(21)/iron 75 mg(7) tablet (Junel FE .5 ()) lisinopril 5 mg tablet 5 mg PO QAM 09/15/20 07/10/22 dicyclomine 20 mg tablet 20 mg PO BID 10/28/21 07/10/22 famotidine 20 mg tablet 20 mg PO HS 10/28/21 07/10/22 metformin 500 mg tablet,extended 500 mg PO QDD 10/28/21 07/10/22 release 24 hr vitamin B complex 1 tab PO DAILY 02/22/22 07/10/22 albuterol sulfate 90 mcg/actuation 1 inh inhalation QID PRN Wheezing 03/26/22 07/10/22 aerosol inhaler albuterol sulfate 2.5 mg/3 mL 2.5 mg continuous nebulization Q4 03/28/22 07/10/22 (0.083 %) solution for nebulization PRN Shortness Of Breath Or Wheezing Previous Rx's Medication Instructions Recorded lidocaine 5 % topical patch 1 patch transdermal Q24H PRN pain 02/27/22 #15 ea sennosides 8.6 mg tablet (Senokot) 17.2 mg PO QAM PRN constipation 02/27/22 #30 tabs hydroxyzine pamoate 50 mg capsule 50 mg PO HS 30 days #30 caps 06/04/22 (Vistaril) prazosin 2 mg capsule (Minipress) 4 mg PO HS PTSD 30 days #60 caps 06/04/22 Results & Data (ED) Vital Signs Vital Signs - 24 hr 07/10/22 20:13 Temperature 36.9 C Temperature Source Oral Pulse Rate 72 Pulse Rhythm Regular Pulse Strength Normal Respiratory Rate 18 Respiratory Effort / Characteristics Non-Labored Respiratory Depth Normal Respiratory Pattern Regular Blood Pressure 124/74 Blood Pressure Mean 90 Pulse Oximetry 97 Oxygen Delivery Method Room Air Sepsis Recent Fever Within 48 Hours No Sepsis New/Unexplained Change in Mental Status No Sepsis Action Taken by Nursing No Action Required Laboratory Data 07/10/22 21:17 07/10/22 21:17 Lab Results 07/10/22 07/10/22 07/10/22 Range/Units 20:20 20:20 20:20 WBC (4.8-10.8) K/ul RBC (4.20-5.40) M/uL Hgb (12.0-16.0) g/dl Hct (37.0-47.0) % MCV (80.0-100.0) fL MCH (25.0-34.0) pg MCHC (32.0-36.0) g/dL RDW Std Deviation (36.4-46.3) fL RDW Coeff of Kailee (11.5-14.5) % Plt Count (130-400) K/uL MPV (9.4-12.4) fL Immature Gran % (Auto) % Neut % (Auto) % Lymph % (Auto) % Young % (Auto) % Eos % (Auto) % Baso % (Auto) % Neut # (Auto) (1.40-6.50) K/uL Lymph # (Auto) (1.2-3.4) K/uL Young # (Auto) (0.11-0.59) K/uL Eos # (Auto) (0-0.50) K/uL Baso # (Auto) (0-0.2) K/uL Immature Gran # (Auto) (0.01-0.20) K/uL Sodium (136-145) mmol/L Potassium (3.5-5.1) mmol/L Chloride (98-107) mmol/L Carbon Dioxide (21-32) mmol/L Anion Gap (3-11) BUN (6-23) mg/dl Creatinine (0.6-1.2) mg/dl Est Cr Clr Drug Dosing ml/min Est GFR ( Amer) ml/min Est GFR (Non-Af Amer) ml/min BUN/Creatinine Ratio (10-20) Glucose (70-99(Fasting)) mg/dl Calcium (8.6-10.3) mg/dl Total Bilirubin (0.2-1.0) mg/dl AST (13-39) U/L ALT (7-52) U/L Alkaline Phosphatase (34-104) U/L Total Protein (6.0-8.3) gm/dl Albumin (3.4-5.0) gm/dl Globulin (2.5-4.0) gm/dl Albumin/Globulin Ratio (0.9-2) TSH (0.300-4.500) uIu/ml Urine Color Yellow Urine Appearance Cloudy A (Clear) Urine pH 7.5 (4.5-7.5) Ur Specific Mccrory 1.021 (1.000-1.030) Urine Protein Negative (Negative) Urine Glucose (UA) Negative (Negative) Urine Ketones Negative (Negative) Urine Blood Negative (Negative) Urine Nitrite Negative (Negative) Urine Bilirubin Negative (Negative) Urine Urobilinogen Negative (Negative) Ur Leukocyte Esterase Trace H (Negative) Urine WBC (Auto) 10-30 H (0-5) /hpf Urine RBC (Auto) 0-4 (0-4) /hpf U Hyaline Cast (Auto) 1-5 (0-5) /lpf U Epithel Cells (Auto) >30 H (0-5) /lpf Urine Bacteria (Auto) 2+ H (Negative) Urine Test (Negative) Salicylates (3.0-30) mg/dl Urine Opiates Screen Neg (Neg) Ur Methadone, Qual Neg (Neg) Acetaminophen (10-30) ug/ml Urine Barbiturates Neg (Neg) Ur Phencyclidine (PCP) Neg (Neg) U Amphetamin/Meth Scrn Neg (Neg) MDMA (Ecstasy) Screen Neg (Neg) U Benzodiazepines Scrn Neg (Neg) Ur Cocaine Metabolite Neg (Neg) U Marijuana (THC) Screen Neg (Neg) Ethyl Alcohol mg/dL (<10.0) mg/dl SARS-CoV-2, RNA, NAAT NEGATIVE (NEGATIVE) 07/10/22 07/10/22 07/10/22 Range/Units 20:20 21:17 21:17 WBC 11.56 H (4.8-10.8) K/ul RBC 4.27 (4.20-5.40) M/uL Hgb 13.0 (12.0-16.0) g/dl Hct 38.6 (37.0-47.0) % MCV 90.4 (80.0-100.0) fL MCH 30.4 (25.0-34.0) pg MCHC 33.7 (32.0-36.0) g/dL RDW Std Deviation 43.6 (36.4-46.3) fL RDW Coeff of Kailee 13.3 (11.5-14.5) % Plt Count 334 (130-400) K/uL MPV 9.0 L (9.4-12.4) fL Immature Gran % (Auto) 0.8 % Neut % (Auto) 58.1 % Lymph % (Auto) 31.1 % Young % (Auto) 7.0 % Eos % (Auto) 2.0 % Baso % (Auto) 1.0 % Neut # (Auto) 6.72 H (1.40-6.50) K/uL Lymph # (Auto) 3.60 H (1.2-3.4) K/uL Young # (Auto) 0.81 H (0.11-0.59) K/uL Eos # (Auto) 0.23 (0-0.50) K/uL Baso # (Auto) 0.11 (0-0.2) K/uL Immature Gran # (Auto) 0.09 (0.01-0.20) K/uL Sodium 136 (136-145) mmol/L Potassium 3.9 (3.5-5.1) mmol/L Chloride 110 H (98-107) mmol/L Carbon Dioxide 20 L (21-32) mmol/L Anion Gap 6 (3-11) BUN 18 (6-23) mg/dl Creatinine 1.02 (0.6-1.2) mg/dl Est Cr Clr Drug Dosing 72.8 ml/min Est GFR ( Amer) 74.8 ml/min Est GFR (Non-Af Amer) 64.5 ml/min BUN/Creatinine Ratio 17.6 (10-20) Glucose 83 (70-99(Fasting)) mg/dl Calcium 9.2 (8.6-10.3) mg/dl Total Bilirubin 0.3 (0.2-1.0) mg/dl AST 13 (13-39) U/L ALT 11 (7-52) U/L Alkaline Phosphatase 43 (34-104) U/L Total Protein 7.6 (6.0-8.3) gm/dl Albumin 4.1 (3.4-5.0) gm/dl Globulin 3.5 (2.5-4.0) gm/dl Albumin/Globulin Ratio 1.2 (0.9-2) TSH (0.300-4.500) uIu/ml Urine Color Urine Appearance (Clear) Urine pH (4.5-7.5) Ur Specific Mccrory (1.000-1.030) Urine Protein (Negative) Urine Glucose (UA) (Negative) Urine Ketones (Negative) Urine Blood (Negative) Urine Nitrite (Negative) Urine Bilirubin (Negative) Urine Urobilinogen (Negative) Ur Leukocyte Esterase (Negative) Urine WBC (Auto) (0-5) /hpf Urine RBC (Auto) (0-4) /hpf U Hyaline Cast (Auto) (0-5) /lpf U Epithel Cells (Auto) (0-5) /lpf Urine Bacteria (Auto) (Negative) Urine Test Negative (Negative) Salicylates (3.0-30) mg/dl Urine Opiates Screen (Neg) Ur Methadone, Qual (Neg) Acetaminophen (10-30) ug/ml Urine Barbiturates (Neg) Ur Phencyclidine (PCP) (Neg) U Amphetamin/Meth Scrn (Neg) MDMA (Ecstasy) Screen (Neg) U Benzodiazepines Scrn (Neg) Ur Cocaine Metabolite (Neg) U Marijuana (THC) Screen (Neg) Ethyl Alcohol mg/dL (<10.0) mg/dl SARS-CoV-2, RNA, NAAT (NEGATIVE) 07/10/22 07/10/22 07/10/22 Range/Units 21:17 21:17 21:17 WBC (4.8-10.8) K/ul RBC (4.20-5.40) M/uL Hgb (12.0-16.0) g/dl Hct (37.0-47.0) % MCV (80.0-100.0) fL MCH (25.0-34.0) pg MCHC (32.0-36.0) g/dL RDW Std Deviation (36.4-46.3) fL RDW Coeff of Kailee (11.5-14.5) % Plt Count (130-400) K/uL MPV (9.4-12.4) fL Immature Gran % (Auto) % Neut % (Auto) % Lymph % (Auto) % Young % (Auto) % Eos % (Auto) % Baso % (Auto) % Neut # (Auto) (1.40-6.50) K/uL Lymph # (Auto) (1.2-3.4) K/uL Young # (Auto) (0.11-0.59) K/uL Eos # (Auto) (0-0.50) K/uL Baso # (Auto) (0-0.2) K/uL Immature Gran # (Auto) (0.01-0.20) K/uL Sodium (136-145) mmol/L Potassium (3.5-5.1) mmol/L Chloride (98-107) mmol/L Carbon Dioxide (21-32) mmol/L Anion Gap (3-11) BUN (6-23) mg/dl Creatinine (0.6-1.2) mg/dl Est Cr Clr Drug Dosing ml/min Est GFR ( Amer) ml/min Est GFR (Non-Af Amer) ml/min BUN/Creatinine Ratio (10-20) Glucose (70-99(Fasting)) mg/dl Calcium (8.6-10.3) mg/dl Total Bilirubin (0.2-1.0) mg/dl AST (13-39) U/L ALT (7-52) U/L Alkaline Phosphatase (34-104) U/L Total Protein (6.0-8.3) gm/dl Albumin (3.4-5.0) gm/dl Globulin (2.5-4.0) gm/dl Albumin/Globulin Ratio (0.9-2) TSH 1.364 (0.300-4.500) uIu/ml Urine Color Urine Appearance (Clear) Urine pH (4.5-7.5) Ur Specific Mccrory (1.000-1.030) Urine Protein (Negative) Urine Glucose (UA) (Negative) Urine Ketones (Negative) Urine Blood (Negative) Urine Nitrite (Negative) Urine Bilirubin (Negative) Urine Urobilinogen (Negative) Ur Leukocyte Esterase (Negative) Urine WBC (Auto) (0-5) /hpf Urine RBC (Auto) (0-4) /hpf U Hyaline Cast (Auto) (0-5) /lpf U Epithel Cells (Auto) (0-5) /lpf Urine Bacteria (Auto) (Negative) Urine Test (Negative) Salicylates < 3.0 L (3.0-30) mg/dl Urine Opiates Screen (Neg) Ur Methadone, Qual (Neg) Acetaminophen < 3 L (10-30) ug/ml Urine Barbiturates (Neg) Ur Phencyclidine (PCP) (Neg) U Amphetamin/Meth Scrn (Neg) MDMA (Ecstasy) Screen (Neg) U Benzodiazepines Scrn (Neg) Ur Cocaine Metabolite (Neg) U Marijuana (THC) Screen (Neg) Ethyl Alcohol mg/dL < 10.0 (<10.0) mg/dl SARS-CoV-2, RNA, NAAT (NEGATIVE) Administered Medications Dicyclomine HCl (Dicyclomine Hcl 20 Mg Tab) 20 mg PO BID VALERI Stop: 08/09/22 21:14 Last Admin: 07/10/22 22:10 Dose: 20 mg Documented By: [id number] Discharge Plan Visit Data Chief Complaint: Mental Health Evaluation ED Provider: Semaj Bond Discharge Problem: Depression with suicidal ideation Patient Disposition: Still a Patient Forms Stand Alone Forms: [facility], Suicide Prevention Resources Prescriptions Prescriptions: No Action cyclobenzaprine 10 mg Tablet 10 mg PO AMHS rizatriptan [Maxalt] 10 mg Tablet 10 mg PO DIRECTED MDD 30 MG/24 HOURS PRN (Reason: Migraine Headache) Rx Instructions: TAKE ONE TABLET AT ONSET OF MIGRAINE HEADACHE, MAY REPEAT DOSE EVERY TWO HOURS IF NEEDED. MAXIMUM 3 TABLETS/24 HOURS gabapentin 800 mg Tablet 800 mg PO TID Rx Instructions: TOTAL DOSE 1100 MG--TAKE WITH ONE 300 MG TABLET levothyroxine 50 mcg Tablet 50 mcg PO DAILYBB Rx Instructions: TAKE THIS MEDICATION AT LEAST 30 MINUTES BEFORE BREAKFAST OR ANY OTHER MEDICATIONS pantoprazole [Protonix] 40 mg Tablet,Delayed Release (Dr/Ec) 40 mg PO QAM ferrous sulfate [Feosol] 325 mg (65 mg iron) Tablet 325 mg PO QAM docusate sodium [Colace] 100 mg Capsule 100 mg PO QAM epinephrine [EpiPen] 0.3 mg/0.3 mL Auto-Injector 0.3 mg IM DIRECTED PRN (Reason: Severe Allergic Reaction) fluticasone propionate [Flonase Allergy Relief] 50 mcg/actuation [place],Suspension 2 spray INTRANASAL DAILY PRN (Reason: Allergy Symptoms) fluticasone furoate-vilanterol [Breo Ellipta] 200-25 mcg/dose Blister With Device 1 inh INHALATION QAM Patient Comments: pt has with her topiramate [Topamax] 200 mg Tablet 200 mg PO AMHS cetirizine [Zyrtec] 10 mg Tablet 10 mg PO QAM Probiotic and Acidophilus 300-250 million cell-mg Capsule 1 cap PO QAM magnesium oxide 400 mg magnesium Tablet 400 mg PO QAM gabapentin [Neurontin] 300 mg capsule 300 mg PO TID Rx Instructions: TOTAL DOSE 1100 MG--TAKE WITH ONE 800 MG TABLET ondansetron 4 mg Tablet,Disintegrating 4 mg PO Q8H PRN (Reason: Nausea) cranberry 500 mg Capsule 500 mg PO QAM norethindrone-e.estradiol-iron [Junel FE 1.5/30 (28)] 1.5 mg-30 mcg (21)/75 mg (7) tablet 1 tab PO QAM cyanocobalamin (vitamin B-12) [Vitamin B-12] 1,000 mcg Tablet 1,000 mcg PO QAM lisinopril 5 mg tablet 5 mg PO QAM albuterol sulfate 90 mcg/actuation Hfa Aerosol Inhaler 1 inh INHALATION QID PRN (Reason: Wheezing) dicyclomine 20 mg tablet 20 mg PO BID famotidine 20 mg tablet 20 mg PO HS metformin 500 mg tablet extended release 24 hr 500 mg PO QDD vitamin B complex Tablet 1 tab PO DAILY sennosides [Senokot] 8.6 mg Tablet 17.2 mg PO QAM PRN (Reason: constipation) Qty: 30 0RF Patient Comments: Not currently taking. Already taking colace lidocaine 5 % Adhesive Patch,Medicated 1 patch transdermal Q24H PRN (Reason: pain) Qty: 15 0RF albuterol sulfate 2.5 mg /3 mL (0.083 %) solution for nebulization 2.5 mg continuous nebulization Q4 PRN (Reason: Shortness Of Breath Or Wheezin g) hydroxyzine pamoate [Vistaril] 50 mg capsule 50 mg PO HS 30 Days Qty: 30 0RF prazosin [Minipress] 2 mg capsule 4 mg PO HS 30 Days Qty: 60 0RF Referrals Referrals: Dennis Khan MD [Primary Care Provider] -
[2022-07-10 21:25] LABS: Amphetamines+Metham, Urine Neg (Neg); Barbiturates, Urine Neg (Neg); Benzodiazepine, Urine Neg (Neg); Cocaine, Urine Neg (Neg); MDMA (Ecstacy), Urine Neg (Neg); Methadone, Urine Neg (Neg); Opiate, Urine Neg (Neg); Phencyclidine, Urine Neg (Neg)
[2022-07-10 21:46] LABS: Basophils # (auto) 0.11 K/uL (0-0.2); Eosinophils # (auto) 0.23 K/uL (0-0.50); Hematocrit (blood only) 38.6 % (37.0-47.0); Immature Granulocytes # (auto) 0.09 K/uL (0.01-0.20); Immature Granulocytes % (auto) 0.8 %; Lymphocytes % (auto) 31.1 %; Mean Corpuscular Hemoglobin 30.4 pg (25.0-34.0); Mean Corpuscular Hgb Conc 33.7 g/dL (32.0-36.0); Mean Corpuscular Volume 90.4 fL (80.0-100.0); Monocytes # (auto) 0.81 K/uL (0.11-0.59); Neutrophils # (auto) 6.72 K/uL (1.40-6.50); Neutrophils % (auto) 58.1 %; Platelet Count 334 K/uL (130-400); RDW Coefficient of Variation 13.3 % (11.5-14.5); RDW Standard Deviation 43.6 fL (36.4-46.3); Red Blood Count 4.27 M/uL (4.20-5.40); White Blood Count 11.56 K/ul (4.8-10.8)
[2022-07-10 21:53] LABS: Albumin Globulin Ratio 1.2 (0.9-2); Albumin Level 4.1 gm/dl (3.4-5.0); BUN Creatinine Ratio 17.6 (10-20); Bilirubin,Total 0.3 mg/dl (0.2-1.0); Calcium 9.2 mg/dl (8.6-10.3); Creatinine Clr Calc Pharmacy 72.8 ml/min; Est GFR (African American) 74.8 ml/min; Est GFR (Non-African American) 64.5 ml/min; Globulin 3.5 gm/dl (2.5-4.0); Potassium 3.9 mmol/L (3.5-5.1); Total Protein 7.6 gm/dl (6.0-8.3)
[2022-07-10 22:13] LABS: Pregnancy Test, Urine Negative (Negative)
[2022-07-10 22:55] LABS: Acetaminophen < 3 ug/ml (10-30); Salicylate < 3.0 mg/dl (3.0-30)
[2022-07-11] MEDS ORDERED: MAGNESIUM HYDROXIDE SUSP 30 ML UDC PO PRN (03:09)
[2022-07-11] MEDS ORDERED: BISMUTH SUBSALICYLATE LIQD 236 ML PO PRN (03:09)
[2022-07-11] MEDS ORDERED: ACETAMINOPHEN 325 MG TAB PO PRN (03:09)
[2022-07-11] MEDS ORDERED: hydrOXYzine HCl 25 MG TAB PO PRN ×2 (03:09)
[2022-07-11] MEDS ORDERED: SODIUM CHLORIDE 0.65% NA SOLN 45 ML (OCEAN) PRN (03:09)
[2022-07-11] MEDS ORDERED: ALUMINUM/MAGNESIUM SUSP 30 ML UDC PO PRN (03:09)
--- NOTE | 2022-07-11 03:29 | Emergency Department Note ---
ED Visit Note This case was signed over to me at the change of shift pending 3 S. evaluation and suspected admission to 3 S. Patient was excepted to 3 S. at 3:29 AM will be admitted for suicidal ideation Disposition is admit .
[2022-07-11] MEDS ORDERED: LEVOTHYROXINE SODIUM 50 MCG TABLET PO SCH (06:30)
[2022-07-11] MEDS ORDERED: CETIRIZINE HCL 10 MG TABLET PO SCH (09:00)
[2022-07-11] MEDS ORDERED: TOPIRAMATE 100 MG TAB PO SCH (09:00)
[2022-07-11] MEDS ORDERED: PANTOprazole 40 MG TAB PO SCH (09:00)
[2022-07-11] MEDS ORDERED: lisinopril 5 MG TAB PO SCH (09:00)
[2022-07-11] MEDS ORDERED: FLUTICASONE/VILANTEROL 200/25MCG 14 PUFFS/INHALER INH SCH (09:00)
[2022-07-11] MEDS ORDERED: CYCLOBENZAPRINE HCL 10 MG TAB PO SCH (09:00)
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
[2022-07-11] MEDS ORDERED: metFORMIN HCL ER 500 MG TABCR PO SCH (16:30)
[2022-07-11] MEDS ORDERED: PRAZOSIN HCL 1 MG CAP PO SCH (21:00)
[2022-07-11] MEDS ORDERED: FAMOTIDINE 20 MG TAB PO SCH (21:00)
[2022-07-11] MEDS ORDERED: hydrOXYzine HCl 25 MG TAB PO SCH (21:00)
[2022-07-11] MEDS: CYCLOBENZAPRINE HCL 10 MG TAB PO SCH (21:17)
[2022-07-11] MEDS: GABAPENTIN 800 MG TAB PO SCH (21:17)
[2022-07-11] MEDS: GABAPENTIN 300 MG CAP PO SCH (21:17)
[2022-07-11] MEDS: TOPIRAMATE 100 MG TAB PO SCH (21:18)
[2022-07-11] MEDS: traZODone HCL 100 MG TAB PO SCH (21:18)
[2022-07-11] MEDS: PRAZOSIN HCL 1 MG CAP PO SCH (21:18)
[2022-07-12] MEDS: GABAPENTIN 300 MG CAP PO SCH ×3 (09:38→21:41)
[2022-07-12] MEDS: CYCLOBENZAPRINE HCL 10 MG TAB PO SCH ×2 (09:38→21:41)
[2022-07-12] MEDS: GABAPENTIN 800 MG TAB PO SCH ×3 (09:38→21:43)
[2022-07-12] MEDS: TOPIRAMATE 100 MG TAB PO SCH ×2 (09:38→21:42)
[2022-07-12] MEDS: VENLAFAXINE HCL XR 75 MG CAPXR PO SCH (09:38)
[2022-07-12] MEDS: CHOLECALCIFEROL 5,000 UNITS 125 MCG TAB PO SCH (12:59)
[2022-07-12] MEDS: DICYCLOMINE HCL 20 MG TAB PO SCH ×2 (12:59→21:43)
--- NOTE | 2022-07-12 14:54 | Psychiatric Progress Note ---
Date of Service July 12, 2022 Impression / Recommendations Impression 47 year old with a history of bipolar II, generalized anxiety, PTSD, chronic back pain with a history of two prior suicide attempts via overdose who was admitted for worsening depression and SI with plan of overdosing. The patient is deemed unstable and requires psychiatric hospitalization for diagnostic clarification, safety and stabilization, medication management, and development of further coping skills. 07/12/2302: Shortly after multidisciplinary treatment team meeting, pt's roommate notified staff that she was scratching her wrist with the corner of the sealed end of a toothpaste tube. Pt was placed in open-door seclusion, where I saw her. She tells me she scratched herself because she "wasn't feeling safe" after hearing of plan for discharge tomorrow. I pointed out that the timing could suggest that resuming medications was a factor - she was quick to say she did not think that was the case. She remains focused on "getting the medications right"; I had to remind her that desvenlafaxine isn't available here. In my opinion, a significant factor was the admission of 3 young women last night. She was observed shortly after our meeting smiling and laughing with other patients and showing them the abrasion on her wrist. 07/11/2022: Several changes in her medication regimen have been made recently. We discussed options at length, but her preference is to revert to as close as possible to what she'd been taking at [facility]. Desvenlafaxine is non-formulary here and pt has nobody who could bring hers from home, so will need to switch to venlafaxine. (1) Bipolar 2 disorder, major depressive episode: (2) PTSD (post-traumatic stress disorder): (3) [place] (generalized anxiety disorder): Plan 07/12/2022: * continue prazosin 4 mg QHS * continue topiramate 200 mg BID * continue trazodone 150 mg QHS * continue venlafaxine XR 225 mg daily (in place of desvenlafaxine) * continue gabapentin 1,100 mg TID (being used for fibromyalgia) * continue cyclobenzaprine 10 mg BID (for leg cramps) 07/11/2022: The patient was admitted to the [facility] ([facility] unit) on q15 min checks (behavioral with suicide precautions) for safety. The patient will participate in group, recreational, and milieu therapies and will be offered additional individual and family sessions as clinically appropriate. * continue prazosin 4 mg QHS * continue topiramate 200 mg BID * resume trazodone 150 mg QHS * venlafaxine XR 225 mg daily (in place of desvenlafaxine) * continue gabapentin 1,100 mg TID (being used for fibromyalgia) * resume cyclobenzaprine 10 mg BID (for leg cramps) Inventory Assets Strengths: willing to get treatment Needs: safety and stabilization medication adjustment additional coping skills Suicide Risk Level Suicide Risk Level: Moderate (q15 min suicide checks) Risk Factors Assessment Male: No : Yes Do You Have Access To A Gun?: No Mental Health Diagnoses: Yes Substance Use Disorders: No Previous Attempt: Yes Previous Psychiatric Hospitalization: Yes Protective Factors Assessment Employed: No (diasabled) Interval History Identifying Information DONALD RAMIREZ is a 46-year-old F who currently lives in [place] with her mother, has a history of PTSD, depression, anxiety and bipolar II, and was admitted on 07/11/22 03:09 on a 201 voluntary commitment for depression with [facility] plan of overdosing on medication. Chief Complaint "I didn't feel safe". Review of Systems Sleep Information Total Hours of Sleep: 7.25 Sleep Comments: pt on q-15 minute checks Meal Information Percent Meal Consumed - Breakfast: 100 Percent Meal Consumed - Dinner: 100 Subjective Subjective Patient was seen & assessed and interval progress reviewed with treatment team Physical Exam Psychiatric Orientation: alert, oriented to person, oriented to place, oriented to time and cooperative (superficially) Apperance: appropriately dressed and appropriately groomed Eye Contact: good eye contact Motor Behavior: steady gait and station and no abnormal motor movements Speech: normal rate/rhythm/volume of speech Affect: + constricted affect Mood: + depressed mood Thought Process: + circumstantial thought process and + tangential thought process Thought Content: + preoccupation Suicidal Thoughts: denies suicidal thoughts (while here) and denies suicidal intent; + reports suicidal plan ("probably overdosing on my meds") Homicidal Thoughts: denies homicidal thoughts Hallucinations: no auditory hallucinations and no visual hallucinations Cognition: recent memory grossly intact and remote memory grossly intact Estimated Intelligence: + below average estimated intelligence Insight: + fair insight Judgment: + fair judgement Vital Signs (Past 24 Hours) Last Vital Signs Temp 36.7 C 07/12/22 06:43 Pulse 88 07/12/22 06:43 Resp 16 07/12/22 06:43 BP 118/85 07/12/22 06:43 Pulse Ox 99 07/11/22 04:46 O2 Del Method Room Air 07/11/22 04:46 Results & Data ([facility]) Current Inpatient Medications Current Inpatient Medications: Current Inpatient Medications Acetaminophen (Acetaminophen 325 Mg Tab) 650 mg PO Q4H PRN PRN Reason: Headache or Minor Fever Stop: 08/10/22 03:08 Al Hydrox/Mg Hydrox/Simethicone (Aluminum/Magnesium Susp 30 Ml Udc) 30 ml PO Q4H PRN PRN Reason: GI Upset Stop: 08/10/22 03:08 Last Admin: 07/11/22 14:07 Dose: 30 ml Albuterol (Albuterol Hfa 8 Gm Inhaler) 1 puffs INH QID PRN PRN Reason: Wheezing Stop: 08/09/22 21:00 Bismuth Subsalicylate (Bismuth Subsalicylate Liqd 236 Ml) 15 ml PO PRN PRN PRN Reason: Loose Stool Stop: 08/10/22 03:08 Cyclobenzaprine HCl (Cyclobenzaprine Hcl 10 Mg Tab) 10 mg PO BID [facility] Stop: 08/10/22 20:59 Last Admin: 07/12/22 09:38 Dose: 10 mg Dicyclomine HCl (Dicyclomine Hcl 20 Mg Tab) 20 mg PO BID [facility] Stop: 08/11/22 12:44 Last Admin: 07/12/22 12:59 Dose: 20 mg Gabapentin (Gabapentin 800 Mg Tab) 800 mg PO TID [facility] Stop: 08/10/22 20:59 Last Admin: 07/12/22 13:21 Dose: 800 mg Gabapentin (Gabapentin 300 Mg Cap) 300 mg PO TID [facility] Stop: 08/10/22 20:59 Last Admin: 07/12/22 13:21 Dose: 300 mg Hydroxyzine HCl (Hydroxyzine Hcl 25 Mg Tab) 50 mg PO HSZ PRN PRN Reason: Insomnia Stop: 08/10/22 03:08 Hydroxyzine HCl (Hydroxyzine Hcl 25 Mg Tab) 25 mg PO Q4H PRN PRN Reason: Anxiety Stop: 08/10/22 03:08 Magnesium Hydroxide (Magnesium Hydroxide Susp 30 Ml Udc) 30 ml PO DAILY PRN PRN Reason: Constipation Stop: 08/10/22 03:08 Prazosin HCl (Prazosin Hcl 1 Mg Cap) 4 mg PO HS [facility] Stop: 08/10/22 21:59 Last Admin: 07/11/22 21:18 Dose: 4 mg Sodium Chloride (Sodium Chloride 0.65% Na Soln 45 Ml ([place])) 1 - 2 sprays NA PRN PRN PRN Reason: Nasal Dryness/Congestion Stop: 08/10/22 03:08 Topiramate (Topiramate 100 Mg Tab) 200 mg PO BID [facility] Stop: 08/11/22 20:59 Trazodone HCl (Trazodone Hcl 100 Mg Tab) 150 mg PO HS [facility] Stop: 08/10/22 21:59 Last Admin: 07/11/22 21:18 Dose: 150 mg Venlafaxine HCl (Venlafaxine Hcl Xr 75 Mg Capxr) 225 mg PO QAM [facility] Stop: 08/11/22 08:59 Last Admin: 07/12/22 09:38 Dose: 225 mg Vitamin D (Cholecalciferol 5,000 Units 125 Mcg Tab) 5,000 units PO DAILY [facility] Stop: 08/11/22 12:44 Last Admin: 07/12/22 12:59 Dose: 5,000 units Mental Health & Subst Abuse Tx Psychiatrist Name of Psychiatrist: Jn Jiang Psychiatrist's Date Of Appointment With Psychiatric Provider: 07/20/2022 Time of Appointment with Psychiatrist: 9:00 AM Psychiatric Appointment Comment: [address], [place], [place] Therapist Name of Therapist: Jn Gomez Therapist's Date of Therapist Appointment: 07/25/2022 Time of Therapist Appointment: 11 AM Therapy Appointment Comment: [address], [place], [place] Yardage Estimator Name of Yardage Estimator: Misti Dyson @ [facility] Case Management Appointment Comment: Please resume your normal schedule. Post Discharge Appointments Primary Care Physician Name Of Family Doctor/PCP: [facility] Date of Future Appointment with PCP: 07/19/2022 Time of Appointment with PCP: 10:25 AM Provider Appointment Comment: [address], [place] Contact Information Discharge Discharge Address: [address], [place] [address]
[2022-07-12] MEDS ORDERED: metFORMIN HCL 500 MG TAB PO SCH ×2 (17:45)
[2022-07-12] MEDS: PRAZOSIN HCL 1 MG CAP PO SCH (21:42)
[2022-07-12] MEDS: traZODone HCL 100 MG TAB PO SCH (21:42)
[2022-07-13] MEDS: GABAPENTIN 800 MG TAB PO SCH (08:44)
[2022-07-13] MEDS: CYCLOBENZAPRINE HCL 10 MG TAB PO SCH (08:44)
[2022-07-13] MEDS: DICYCLOMINE HCL 20 MG TAB PO SCH (08:44)
[2022-07-13] MEDS: CHOLECALCIFEROL 5,000 UNITS 125 MCG TAB PO SCH (08:44)
[2022-07-13] MEDS: GABAPENTIN 300 MG CAP PO SCH (08:45)
[2022-07-13] MEDS: TOPIRAMATE 100 MG TAB PO SCH (08:45)
[2022-07-13] MEDS: VENLAFAXINE HCL XR 75 MG CAPXR PO SCH (08:45)
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
== END 2022-07-13 13:20 | disposition home or self-care (01) | DRG 885 ==
LOC: ED 20:08 → 3S 07-11 03:09

== ENCOUNTER 2023-06-28 11:44 | Inpatient (IN) ==
--- NOTE | 2023-06-28 12:13 | Emergency Department Note ---
Impression & Plan Suicidal ideation ED Provider Note NAME: DONALD RAMIREZ AGE: 48 SEX: F : 1975 ARRIVES VIA: Ambulance INFORMANT: [Patient] ED PROVIDER(S): [Meño Cotter MD] CHIEF COMPLAINT: Mental health evaluation HISTORY OF PRESENT ILLNESS: The patient is a 48-year-old female with a history of bipolar disease and posttraumatic stress disorder. The patient is currently living with her mother and is now caring for her nieces fairly regularly. The patient went to her therapist office today and admitted to some suicidal ideation. She thought about overdosing on pills. She was sent to the ED by the therapist. The patient believes that she is overwhelmed right now because of the work she is doing caring for her nieces. The patient has previously been hospitalized for psychiatric reasons. She feels that she likely needs a repeat hospitalization. The patient does not use illicit drugs or drink alcohol. She is on psychiatric medications and is taking them as prescribed. PMHx/PSHx/Social Hx: See Below PHYSICAL EXAM: GENERAL: Patient is in no acute distress. HEENT: No acute trauma, normocephalic atraumatic, mucous membranes moist, no nasal congestion. NECK: No stridor, no adenopathy, no meningismus, trachea is midline. LUNGS: Clear to auscultation bilaterally, no wheeze, no rhonchi, breath sounds equal. HEART: Without murmurs gallops or rubs, regular rate and rhythm. ABDOMEN: Soft, nontender, no peritonitis. EXTREMITIES: No cyanosis, full range of motion of all the joints without pain or difficulty. NEUROLOGIC: Oriented x 3, no acute motor or sensory deficits, no focal weakness. SKIN: No jaundice, no diaphoresis. Psychiatric: Cooperative, voluntary, admits to suicidal ideation with a potential plan to overdose on pills. DIFFERENTIAL DIAGNOSIS: Suicidality, depression, anxiety, psychosis, thyroid disorder, medication noncompliance, among others. EMERGENCY DEPARTMENT PROCEDURES: MEDICAL DECISION MAKING: There is no leukocytosis or worrisome anemia. There is a normal platelet count. No renal failure or significant electrolyte abnormality. No concerning liver enzyme elevation. Patient appears to be in a euthyroid state. testing is negative. Urinalysis shows contamination, no obvious infection. Aspirin, Tylenol and alcohol levels were basically undetectable. Urine tox was negative. COVID test was negative. On exam, the patient was not toxic or febrile. She did admit to some suicidal ideation with a thought of overdosing. The patient was voluntary. She was felt medically clear. The patient was seen by psychiatry case management. She was accepted to this hospital psychiatric floor, 3 S. The appropriate paperwork was completed and signed. Patient remained cooperative during her ED stay. Prior/Outside records/notes reviewed: Family practice note from 04/04/2023 discussing her chronic issues as well as an acute sinusitis diagnosis. Imaging/x-ray results per my interpretation: Chronic Medical/Social conditions affecting care: History of bipolar disorder. Care/Management discussed with: Case management, psychiatry case management. Level of care consideration(s): After review of the information above and other included data: --I believe the patient requires escalation of care to admission DISPOSITION: Admission voluntarily to the psychiatric floor Past Med/Surg History Medical History Well adult exam Small fiber neuropathy Bipolar 2 disorder History of anemia as a child Hx of Clostridium difficile infection end of 2021, tx w/abx. History of COVID-19 07/25/20>not hospitalized>"mild">resolved Suicidal ideation patient denies current or active SI/plan Right flank pain ongoing Pyelonephritis Prediabetes Hx of sepsis hospitalized at [facility] Feb 2022 for this > resolved per pt Hydronephrosis due to obstruction of ureter Right ureteral calculus Complicated bereavement Depression with suicidal ideation patient denies current or active SI/plan Recurrent UTI Chest pain "not recently"; follows with S cardio records, atypical, attributed to GI etiology and anxiety Poor historian Hx of prolonged Q-T interval on ECG PER PT'S MEDICAL RECORD FROM PCP OFFICE. Fibroadenoma of breast RT Sleep apnea NO CPAP Asthma USES PRN INH APPROX 1-2 X MONTHLY; DENIES RECENT EXAC Kidney stone Patient with obstructing left renal stone and urosepsis Plan patient will be taken to the operating room for emergent stent placement for seizure risks and benefits discussed Closed head injury R/T FALL IN 2017; REPORTS CONCUSSION>"still gets very tired in the afternoon" E. coli septicemia hx Surgical History S/P cystoscopy with ureteral stent placement History of esophagogastroduodenoscopy (EGD) Status post labral repair of shoulder History of breast biopsy H/O lithotripsy History of cystoscopy Hx of shoulder surgery Hx of colonoscopy Hx of knee surgery History of ankle surgery Hx of cholecystectomy Family History Father Heart disease Other No significant family history Social History Smoking Status: Unknown if ever smoked Second Hand Exposure: No; Do You Dip or Chew Tobacco: No; Hx Alcohol Use: No Hx Substance Use: No Preferred Language: Kazakh Communication Ability: Effective Visual Impairment: Limited Hearing Ability: Use of Hearing Aid Computer Service Technician Required: No Beliefs That Will Affect Care: None marital status: Single Current Living Situation: Parent Current Living Situation Comment: lives w/ mom. disabled. no drivers license current occupational status: disabled How many Children do You have: 0 Feels Safe at Home: Yes Childhood Exposure to Second-Hand Smoke: No Diet: regular caffeine: Yes during the past year weight has: remained stable Dental Care, Regularly: Yes Physical Activity Frequency: Daily Seatbelt Use: always Sunscreen Use: Yes Gender Identity: Female Assistive Devices: Glasses and Hearing Aid - Bilateral Allergies Allergies Allergy/AdvReac Type Severity Reaction Status Date / Time bee venom protein (honey bee) Allergy Severe ANAPHYLAXIS Verified 04/23/23 10:21 tomato Allergy Intermediate Hives Verified 04/23/23 10:21 morphine AdvReac Intermediate HALLUCINATI Verified 04/23/23 10:21 ONS Home Meds Home Medications Medication Instructions Recorded Confirmed epinephrine 0.3 mg/0.3 mL 0.3 mg IM DIRECTED PRN Severe 01/10/18 06/28/23 injection, auto-injector (EpiPen) Allergic Reaction fluticasone furoate 200 1 inh inhalation QAM 01/10/18 06/28/23 mcg-vilanterol 25 mcg/dose inhalation powder (Breo Ellipta) fluticasone propionate 50 2 spray intranasal DAILY PRN 01/10/18 06/28/23 mcg/actuation nasal Allergy Symptoms spray,suspension (Flonase Allergy Relief) rizatriptan 10 mg tablet (Maxalt) 10 mg PO UD PRN Migraine Headache 01/10/18 06/28/23 Lactobacillus comb 1 cap PO QAM 10/14/18 06/28/23 no.0-PKE-townqodchd 300 million cell-250 mg capsule (Probiotic and Acidophilus) magnesium oxide 400 mg PO QAM 04/07/19 06/28/23 ondansetron 4 mg disintegrating 4 mg PO Q8H PRN Nausea 08/08/19 06/28/23 tablet cyanocobalamin (vitamin B-12) 1,000 mcg PO QAM 02/14/20 06/28/23 1,000 mcg tablet (Vitamin B-12) norethindrone 1.5 mg-ethinyl 1 tab PO QAM 02/14/20 06/28/23 estradiol 30 mcg(21)/iron 75 mg(7) tablet (Junel FE 1.5/30 (28)) vitamin B complex 1 tab PO QAM 02/22/22 06/28/23 albuterol sulfate 90 mcg/actuation 1 inh inhalation QID PRN Wheezing 03/26/22 06/28/23 aerosol inhaler (ProAir HFA) albuterol sulfate 2.5 mg/3 mL 2.5 mg continuous nebulization Q4H 03/28/22 06/28/23 (0.083 %) solution for nebulization PRN Shortness Of Breath Or Wheezing cholecalciferol (vitamin D3) 125 5,000 unit PO DAILY 07/12/22 06/28/23 mcg (5,000 unit) capsule cranberry 500 mg capsule 125 mg PO QAM 08/23/22 06/28/23 oxcarbazepine 300 mg tablet 300 mg PO BID 10/31/22 06/28/23 (Trileptal) docusate sodium 100 mg capsule 100 mg PO DAILY 02/08/23 06/28/23 escitalopram oxalate 10 mg tablet 10 mg PO DAILY 02/08/23 06/28/23 (Lexapro) famotidine 20 mg tablet 20 mg PO DAILY 02/08/23 06/28/23 gabapentin 800 mg tablet 800 mg PO TID 02/08/23 06/28/23 meloxicam 7.5 mg tablet 15 mg PO DAILY PAIN 02/18/23 06/28/23 hydroxyzine pamoate 50 mg capsule 100 mg PO HS 04/23/23 06/28/23 (Vistaril) Previous Rx's Medication Instructions Recorded sennosides 8.6 mg tablet (Senokot) 17.2 mg (2 x 8.6 mg) PO QAM PRN 02/27/22 constipation #30 tabs prazosin 2 mg capsule (Minipress) 4 mg (2 x 2 mg) PO HS PTSD 30 days 09/06/22 #60 caps levothyroxine 50 mcg tablet 50 mcg PO QAM #90 tabs 09/20/22 pantoprazole 40 mg tablet,delayed 40 mg PO QAM #90 tabs 09/20/22 release (Protonix) topiramate 200 mg tablet (Topamax) 200 mg PO BID #180 tabs 09/20/22 dicyclomine 20 mg tablet 20 mg PO BID 3 months #180 tabs 04/01/23 metformin 500 mg tablet,extended 500 mg PO QPM #100 tabs 04/26/23 release 24 hr lisinopril 5 mg tablet 5 mg PO QAM #100 tabs 04/30/23 cetirizine 10 mg tablet (Zyrtec) 10 mg PO DAILY #90 tabs 05/27/23 cyclobenzaprine 10 mg tablet 10 mg PO BID #180 tabs 06/21/23 Results & Data (ED) Vital Signs Vital Signs - 24 hr 06/28/23 12:33 Temperature 36.8 C Temperature Source Oral Pulse Rate 104 H Respiratory Rate 20 Respiratory Effort / Characteristics Non-Labored Spontaneous Respiratory Depth Normal Respiratory Pattern Regular Blood Pressure 132/76 Blood Pressure Mean 94 Blood Pressure Position Sitting Pulse Oximetry 98 Oxygen Delivery Method Room Air Sepsis Recent Fever Within 48 Hours No Sepsis New/Unexplained Change in Mental Status No Sepsis Action Taken by Nursing No Action Required Home Medications Current Medication List: was personally reviewed by me Laboratory Data Attestation: I reviewed the patient's lab results. 06/28/23 12:35 06/28/23 12:35 Lab Results 06/28/23 06/28/23 Range/Units 12:04 12:35 WBC 9.41 (4.8-10.8) K/ul RBC 4.36 (4.20-5.40) M/uL Hgb 13.5 (12.0-16.0) g/dl Hct 39.0 (37.0-47.0) % MCV 89.4 (80.0-100.0) fL MCH 31.0 (25.0-34.0) pg MCHC 34.6 (32.0-36.0) g/dL RDW Std Deviation 38.5 (36.4-46.3) fL RDW Coeff of [place] 11.7 (11.5-14.5) % Plt Count 326 (130-400) K/uL MPV 9.0 L (9.4-12.4) fL Immature Gran % (Auto) 0.9 % Neut % (Auto) 55.3 % Lymph % (Auto) 34.1 % [place] % (Auto) 6.6 % Eos % (Auto) 2.0 % Baso % (Auto) 1.1 % Neut # (Auto) 5.21 (1.40-6.50) K/uL Lymph # (Auto) 3.21 (1.20-3.40) K/uL [place] # (Auto) 0.62 H (0.11-0.59) K/uL Eos # (Auto) 0.19 (0.00-0.50) K/uL Baso # (Auto) 0.10 (0.00-0.20) K/uL Immature Gran # (Auto) 0.08 (0.01-0.20) K/uL Sodium 138 (136-145) mmol/L Potassium 3.7 (3.5-5.1) mmol/L Chloride 110 H (98-107) mmol/L Carbon Dioxide 20 L (21-32) mmol/L Anion Gap 8 (3-11) BUN 25 H (6-23) mg/dl Creatinine 1.02 (0.6-1.2) mg/dl Est Cr Clr Drug Dosing 69.6 ml/min Est GFR ( Amer) 74.3 ml/min Est GFR (Non-Af Amer) 64.1 ml/min BUN/Creatinine Ratio 24.5 H (10-20) Glucose 97 (70-99(Fasting)) mg/dl Calcium 9.2 (8.6-10.3) mg/dl Total Bilirubin 0.3 (0.2-1.0) mg/dl AST 26 (13-39) U/L ALT 38 (7-52) U/L Alkaline Phosphatase 52 (34-104) U/L Total Protein 7.7 (6.0-8.3) gm/dl Albumin 4.5 (3.4-5.0) gm/dl Globulin 3.2 (2.5-4.0) gm/dl Albumin/Globulin Ratio 1.4 (0.9-2) TSH 2.304 (0.300-4.500) uIu/ml HCG, Qual Negative (Negative) Urine Color Dark Yellow Urine Appearance Cloudy A (Clear) Urine pH 5.0 (4.5-7.5) Ur Specific [place] 1.037 H (1.000-1.030) Urine Protein Negative (Negative) Urine Glucose (UA) Negative (Negative) Urine Ketones Trace H (Negative) Urine Blood Negative (Negative) Urine Nitrite Negative (Negative) Urine Bilirubin Negative (Negative) Urine Urobilinogen Negative (Negative) Ur Leukocyte Esterase Negative (Negative) Urine WBC (Auto) 10-30 H (0-5) /hpf Urine RBC (Auto) 0-4 (0-4) /hpf U Hyaline Cast (Auto) 10-30 H (0-5) /lpf U Epithel Cells (Auto) >30 H (0-5) /lpf Urine Bacteria (Auto) 1+ H (Negative) Urine Crystals Calcium Oxalate A (None Prsent) Calcium Oxalate Crystal Present A (None Prsent) Salicylates < 3.0 L (3.0-30) mg/dl Urine Opiates Screen Neg (Neg) Ur Methadone, Qual Neg (Neg) Acetaminophen 6 L (10-30) ug/ml Urine Barbiturates Neg (Neg) Ur Phencyclidine (PCP) Neg (Neg) U Amphetamin/Meth Scrn Neg (Neg) MDMA (Ecstasy) Screen Neg (Neg) U Benzodiazepines Scrn Neg (Neg) Ur Cocaine Metabolite Neg (Neg) U Marijuana (THC) Screen Neg (Neg) Ethyl Alcohol mg/dL < 10.0 (<10.0) mg/dl SARS-CoV-2, RNA, NAAT NEGATIVE (NEGATIVE) Discharge Plan Visit Data Chief Complaint: Mental Health Evaluation Stated Complaint: MENTAL HEALTH EVAL ED Provider: Meño Cotter Discharge Problem: Suicidal ideation Patient Disposition: Admitted As Inpatient Condition: Good Discharge Instructions Interventions: ED Discharge Assessment Last Done: 06/28/23 17:44
[2023-06-28 12:17] LABS: Appearance Urine Cloudy (Clear); Bacteria Urine Automated 1+ (Negative); Bilirubin Urine Negative (Negative); Blood Urine Negative (Negative); Color Urine Dark Yellow; Epithelial Cell Urine Auto >30 /lpf (0-5); Glucose Urine UA Negative (Negative); Ketones Urine Trace (Negative); Leukocyte Esterase Urine Negative (Negative); Nitrite Urine Negative (Negative); Protein Urine Negative (Negative); RBC Urine Automated 0-4 /hpf (0-4); Specific Gravity Urine 1.037 (1.000-1.030); Urobilinogen Urine Negative (Negative)
[2023-06-28 12:44] LABS: Calcium Oxalate Crystals Urine Present (None Prsent)
[2023-06-28 12:56] LABS: Basophils % (auto) 1.1 %; Eosinophils # (auto) 0.19 K/uL (0.00-0.50); Hemoglobin 13.5 g/dl (12.0-16.0); Immature Granulocytes # (auto) 0.08 K/uL (0.01-0.20); Immature Granulocytes % (auto) 0.9 %; Lymphocytes # (auto) 3.21 K/uL (1.20-3.40); Lymphocytes % (auto) 34.1 %; Mean Corpuscular Hgb Conc 34.6 g/dL (32.0-36.0); Mean Corpuscular Volume 89.4 fL (80.0-100.0); Monocytes # (auto) 0.62 K/uL (0.11-0.59); Monocytes % (auto) 6.6 %; Neutrophils # (auto) 5.21 K/uL (1.40-6.50); Neutrophils % (auto) 55.3 %; Platelet Count 326 K/uL (130-400); RDW Coefficient of Variation 11.7 % (11.5-14.5); RDW Standard Deviation 38.5 fL (36.4-46.3); Red Blood Count 4.36 M/uL (4.20-5.40); White Blood Count 9.41 K/ul (4.8-10.8)
[2023-06-28 13:03] LABS: Amphetamines+Metham, Urine Neg (Neg); Barbiturates, Urine Neg (Neg); Benzodiazepine, Urine Neg (Neg); Cocaine, Urine Neg (Neg); MDMA (Ecstacy), Urine Neg (Neg); Marijuana, Urine Neg (Neg); Methadone, Urine Neg (Neg); Opiate, Urine Neg (Neg); Phencyclidine, Urine Neg (Neg)
[2023-06-28 13:12] LABS: Albumin Globulin Ratio 1.4 (0.9-2); Albumin Level 4.5 gm/dl (3.4-5.0); BUN Creatinine Ratio 24.5 (10-20); Bilirubin,Total 0.3 mg/dl (0.2-1.0); Calcium 9.2 mg/dl (8.6-10.3); Creatinine Clr Calc Pharmacy 69.6 ml/min; Est GFR (African American) 74.3 ml/min; Est GFR (Non-African American) 64.1 ml/min; Globulin 3.2 gm/dl (2.5-4.0); Potassium 3.7 mmol/L (3.5-5.1); Total Protein 7.7 gm/dl (6.0-8.3)
[2023-06-28 13:24] LABS: Thyroid Stimulating Hormone 2.304 uIu/ml (0.300-4.500)
[2023-06-28 13:28] LABS: Pregnancy Test, Serum Negative (Negative)
[2023-06-28 13:37] LABS: Acetaminophen 6 ug/ml (10-30); Salicylate < 3.0 mg/dl (3.0-30)
[2023-06-28] MEDS ORDERED: ACETAMINOPHEN 325 MG TAB PO PRN (17:09)
[2023-06-28] MEDS ORDERED: SODIUM CHLORIDE 0.65% NA SOLN 45 ML (OCEAN) PRN (17:09)
[2023-06-28] MEDS ORDERED: BISMUTH SUBSALICYLATE LIQD 236 ML PO PRN (17:09)
[2023-06-28] MEDS ORDERED: MAGNESIUM HYDROXIDE SUSP 30 ML UDC PO PRN (17:09)
[2023-06-28] MEDS ORDERED: hydrOXYzine HCl 25 MG TAB PO PRN ×2 (17:09)
[2023-06-28] MEDS ORDERED: ALUMINUM/MAGNESIUM SUSP 30 ML UDC PO PRN (17:09)
[2023-06-28] MEDS: DICYCLOMINE HCL 20 MG TAB PO SCH (20:59)
[2023-06-28] MEDS: CYCLOBENZAPRINE HCL 10 MG TAB PO SCH (20:59)
[2023-06-28] MEDS: hydrOXYzine HCl 25 MG TAB PO SCH (21:00)
[2023-06-28] MEDS: OXcarbazepine 150 MG TABLET PO SCH (21:00)
[2023-06-28] MEDS: GABAPENTIN 800 MG TAB PO ONE (21:00)
[2023-06-28] MEDS: metFORMIN HCL ER 500 MG TABCR PO SCH (21:00)
[2023-06-28] MEDS: PRAZOSIN HCL 1 MG CAP PO SCH (21:01)
[2023-06-28] MEDS: RIZATRIPTAN BENZOATE 10 MG TAB PO PRN (21:15)
[2023-06-29] MEDS: LEVOTHYROXINE SODIUM 50 MCG TABLET PO SCH (08:04)
[2023-06-29] MEDS: CETIRIZINE HCL 10 MG TABLET PO SCH (08:05)
[2023-06-29] MEDS: DOCUSATE SODIUM 100 MG CAP PO SCH (08:06)
[2023-06-29] MEDS: ESCITALOPRAM OXALATE 10 MG TAB PO SCH (08:06)
[2023-06-29] MEDS: CHOLECALCIFEROL 125 MCG (5,000 UNITS) TAB PO SCH (08:06)
[2023-06-29] MEDS: CYANOCOBALAMIN (B-12) 500 MCG TABLET PO SCH (08:06)
[2023-06-29] MEDS: FAMOTIDINE 20 MG TAB PO SCH (08:07)
[2023-06-29] MEDS: GABAPENTIN 800 MG TAB PO SCH (08:07)
[2023-06-29] MEDS: MAGNESIUM OXIDE 400 MG TAB PO SCH (08:09)
[2023-06-29] MEDS: MELOXICAM 7.5 MG TAB PO SCH (08:09)
[2023-06-29] MEDS: PANTOprazole 40 MG TAB PO SCH (08:09)
[2023-06-29] MEDS: FLUTICASONE/VILANTEROL 200/25MCG 14 PUFFS/INHALER INH SCH (08:10)
[2023-06-29] MEDS: lisinopril 5 MG TAB PO SCH (08:53)
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
[2023-06-29] MEDS: metFORMIN HCL ER 500 MG TABCR PO SCH (17:55)
--- NOTE | 2023-06-30 12:24 | Psychiatric Progress Note ---
Date of Service June 30, 2023 Impression / Recommendations Impression 48 yo female with a hx of chronic SI/SIB in the context of mood instability that is largely driven by external stressors (feelings of abandonment, inability to establish/respect boundaries, etc). Overall, I spent a total of 35 minutes with this case, including review of chart, direct evaluation of the patient, counseling the patient, coordination with nursing, and documentation. (1) Bipolar 2 disorder, major depressive episode: (2) Borderline personality disorder: Plan 06/30/2023: Continued inpatient hospitalization is medically necessary for ongoing monitoring and safety. 06/29/2023: The patient was admitted to the [facility] ([facility] mental health unit) on q15 min checks (behavioral with suicide precautions) for safety. The patient will participate in group, recreational, and milieu therapies and will be offered additional individual and family sessions as clinically appropriate. Risks/benefits/alternatives were reviewed re: current medications which she desires to continue unchanged. Inventory Assets Strengths: help seeking, cares for family Needs: improve insight into condition and coping with perceived rejection Suicide Risk Level Suicide Risk Level: High-Moderate (q15 min suicide checks) Risk Factors Assessment : Yes Do You Have Access To A Gun?: No Health Problems: Yes Mental Health Diagnoses: Yes Substance Use Disorders: No Previous Attempt: Yes Previous Psychiatric Hospitalization: Yes Protective Factors Assessment Moravian Beliefs: Yes : No Responsible for Young Children: Yes (great nieces) Employed: No ([employer]) Supportive Family: Yes Interval History Identifying Information DONALD RAMIREZ is a 48-year-old F who currently lives in [place] with mother (75 yo), has a history of multiple inpatient psychiatric admission, and was admitted on 06/28/23 17:30 on a 201 voluntary commitment for SI. Chief Complaint "I need my spiritual mom to visit." Review of Systems Sleep Information Total Hours of Sleep: 7.30 Sleep Comments: Scheduled Vistaril at Meal Information Percent Meal Consumed - Breakfast: 100 Percent Meal Consumed - Lunch: 100 Percent Meal Consumed - Dinner: 100 Subjective Subjective Patient was seen & assessed and interval progress reviewed with nursing and social work. Patient is cooperative with unit routines. No medication concerns. Denies urge to self injure on unit but hyperfocussed on friend visiting. Physical Exam Psychiatric Orientation: alert and oriented x 3 Apperance: appropriately dressed and appropriately groomed Eye Contact: good eye contact Motor Behavior: no abnormal motor movements Speech: normal rate/rhythm/volume of speech Affect: + depressed affect Mood: + depressed mood and + anxious mood Thought Process: goal directed thought process and + concrete thought process Thought Content: reality based without delusions Suicidal Thoughts: denies suicidal plan (on unit as meds controlled) and denies suicidal intent; + reports suicidal thoughts (intermittent, none today so far) Homicidal Thoughts: denies homicidal thoughts Hallucinations: no auditory hallucinations and no visual hallucinations Cognition: attention grossly intact and language grossly intact Estimated Intelligence: consistent with education level Insight: + limited insight Judgment: + limited judgement Vital Signs (Past 24 Hours) Last Vital Signs Temp 36.7 C 06/30/23 06:22 Pulse 86 06/30/23 06:23 Resp 20 06/30/23 06:22 BP 116/77 06/30/23 06:23 Pulse Ox 96 06/30/23 06:22 O2 Del Method Room Air 06/30/23 06:22 Results & Data ([facility]) Current Inpatient Medications Current Inpatient Medications: Current Inpatient Medications Acetaminophen (Acetaminophen 325 Mg Tab) 650 mg PO Q4H PRN PRN Reason: Headache or Minor Fever Stop: 07/28/23 17:08 Al Hydrox/Mg Hydrox/Simethicone (Aluminum/Magnesium Susp 30 Ml Udc) 30 ml PO Q4H PRN PRN Reason: GI Upset Stop: 07/28/23 17:08 Bismuth Subsalicylate (Bismuth Subsalicylate Liqd 236 Ml) 15 ml PO PRN PRN PRN Reason: Loose Stool Stop: 07/28/23 17:08 Cetirizine HCl (Cetirizine Hcl 10 Mg Tablet) 10 mg PO DAILY [facility] Stop: 07/29/23 08:59 Last Admin: 06/30/23 07:58 Dose: 10 mg Cyanocobalamin (Cyanocobalamin (B-12) 500 Mcg Tablet) 1,000 mcg PO QAM [facility] Stop: 07/29/23 08:59 Last Admin: 06/30/23 07:59 Dose: 1,000 mcg Cyclobenzaprine HCl (Cyclobenzaprine Hcl 10 Mg Tab) 10 mg PO BID [facility] Stop: 07/28/23 20:59 Last Admin: 06/30/23 07:59 Dose: 10 mg Dicyclomine HCl (Dicyclomine Hcl 20 Mg Tab) 20 mg PO BID [facility] Stop: 07/28/23 20:59 Last Admin: 06/30/23 07:58 Dose: 20 mg Docusate Sodium (Docusate Sodium 100 Mg Cap) 100 mg PO DAILY [facility]ERI Stop: 07/29/23 08:59 Last Admin: 06/30/23 07:55 Dose: 100 mg Escitalopram Oxalate (Escitalopram Oxalate 10 Mg Tab) 15 mg PO DAILY [facility]I Stop: 07/29/23 08:59 Last Admin: 06/30/23 07:56 Dose: 15 mg Famotidine (Famotidine 20 Mg Tab) 20 mg PO HS [facility] Stop: 07/30/23 21:59 Fluticasone/Vilanterol (Fluticasone/Vilanterol 200/25mcg 14 Puffs/Inhaler) 1 puffs INH QAM [facility] Stop: 07/29/23 08:59 Last Admin: 06/30/23 08:00 Dose: 1 puffs Gabapentin (Gabapentin 800 Mg Tab) 800 mg PO TID [facility] Stop: 07/29/23 08:59 Last Admin: 06/30/23 07:54 Dose: 800 mg Hydroxyzine HCl (Hydroxyzine Hcl 25 Mg Tab) 50 mg PO HSZ PRN PRN Reason: Insomnia Stop: 07/28/23 17:08 Hydroxyzine HCl (Hydroxyzine Hcl 25 Mg Tab) 25 mg PO Q4H PRN PRN Reason: Anxiety Stop: 07/28/23 17:08 Hydroxyzine HCl (Hydroxyzine Hcl 25 Mg Tab) 100 mg PO HS [facility] Stop: 07/28/23 20:59 Last Admin: 06/29/23 21:34 Dose: 100 mg Levothyroxine Sodium (Levothyroxine Sodium 50 Mcg Tablet) 50 mcg PO DAILYBB [facility] Stop: 07/29/23 07:59 Last Admin: 06/30/23 07:59 Dose: 50 mcg Lisinopril (Lisinopril 5 Mg Tab) 5 mg PO QAM [facility] Stop: 07/29/23 08:59 Last Admin: 06/30/23 07:55 Dose: 5 mg Magnesium Hydroxide (Magnesium Hydroxide Susp 30 Ml Udc) 30 ml PO DAILY PRN PRN Reason: Constipation Stop: 07/28/23 17:08 Magnesium Oxide (Magnesium Oxide 400 Mg Tab) 400 mg PO QAM [facility] Stop: 07/29/23 08:59 Last Admin: 06/30/23 07:56 Dose: 400 mg Metformin HCl (Metformin Hcl Er 500 Mg Tabcr) 500 mg PO DAILYBD [facility] Stop: 07/29/23 17:14 Last Admin: 06/29/23 17:55 Dose: 500 mg Oxcarbazepine (Oxcarbazepine 150 Mg Tablet) 300 mg PO BID [facility] Stop: 07/28/23 20:59 Last Admin: 06/30/23 07:55 Dose: 300 mg Pantoprazole Sodium (Pantoprazole 40 Mg Tab) 40 mg PO QAM [facility] Stop: 07/29/23 08:59 Last Admin: 06/30/23 07:56 Dose: 40 mg Prazosin HCl (Prazosin Hcl 1 Mg Cap) 4 mg PO HS [facility] Stop: 07/28/23 20:59 Last Admin: 06/29/23 21:35 Dose: 4 mg Rizatriptan Benzoate (Rizatriptan Benzoate 10 Mg Tab) 10 mg PO UD PRN PRN Reason: Migraine Headache Stop: 07/28/23 17:13 Last Admin: 06/29/23 19:00 Dose: 10 mg Sodium Chloride (Sodium Chloride 0.65% Na Soln 45 Ml ([place])) 1 - 2 sprays NA PRN PRN PRN Reason: Nasal Dryness/Congestion Stop: 07/28/23 17:08 Vitamin D (Cholecalciferol 125 Mcg (5,000 Units) Tab) 125 mcg PO DAILY [facility] Stop: 07/29/23 08:59 Last Admin: 06/30/23 07:59 Dose: 125 mcg Mental Health & Subst Abuse Tx Psychiatrist Date Of Appointment With Psychiatric Provider: 07/04/22 Therapist Name of Therapist: Shauna @[facility] [employer] Name of Pot Liner: Arlyn Farr @[facility] Post Discharge Appointments Primary Care Physician Name Of Family Doctor/PCP: Delia Funes @[facility]
[2023-06-30] MEDS: FAMOTIDINE 20 MG TAB PO SCH (21:06)
--- NOTE | 2023-07-01 08:30 | Psychiatric Progress Note ---
Date of Service July 01, 2023 Impression / Recommendations Impression 48 yo female with a hx of chronic SI/SIB in the context of mood instability that is largely driven by external stressors (feelings of abandonment, inability to establish/respect boundaries, etc). Overall, I spent a total of 37 minutes with this case, including review of chart, direct evaluation of the patient, counseling the patient, coordination with treatment team, and documentation. (1) Bipolar 2 disorder, major depressive episode: (2) Borderline personality disorder: Plan 07/01/2023: family meeting, safety plan 06/30/2023: Continued inpatient hospitalization is medically necessary for ongoing monitoring and safety. 06/29/2023: The patient was admitted to the [facility] ([facility]) on q15 min checks (behavioral with suicide precautions) for safety. The patient will participate in group, recreational, and milieu therapies and will be offered additional individual and family sessions as clinically appropriate. Risks/benefits/alternatives were reviewed re: current medications which she desires to continue unchanged. Inventory Assets Strengths: help seeking, cares for family Needs: improve insight into condition and coping with perceived rejection Suicide Risk Level Suicide Risk Level: Moderate (q15 min suicide checks) Risk Factors Assessment : Yes Do You Have Access To A Gun?: No Health Problems: Yes Mental Health Diagnoses: Yes Substance Use Disorders: No Previous Attempt: Yes Previous Psychiatric Hospitalization: Yes Protective Factors Assessment Episcopal Beliefs: Yes : No Responsible for Young Children: Yes (great nieces) Employed: No ([employer]) Supportive Family: Yes Interval History Identifying Information DONALD RAMIREZ is a 48-year-old F who currently lives in [place] with mother (75 yo), has a history of multiple inpatient psychiatric admission, and was admitted on 06/28/23 17:30 on a 201 voluntary commitment for SI. Chief Complaint "my mom didn't answer". Review of Systems Sleep Information Total Hours of Sleep: 7.15 Sleep Comments: Scheduled Vistaril at Meal Information Percent Meal Consumed - Breakfast: 100 Percent Meal Consumed - Lunch: 100 Percent Meal Consumed - Dinner: 100 Subjective Subjective Patient was seen & assessed and interval progress reviewed with treatment team. Patient seemed somewhat upset that mother did not answer for initial call for family meeting. She is bright in unit interactions and reviewed her outpatient supports. She was disappointed when didn't get a visitor yesterday but did not act out or engage in SIB. No significant impulsivity noted on unit. Physical Exam Psychiatric Orientation: alert and oriented x 3 Apperance: appropriately dressed and appropriately groomed Eye Contact: good eye contact Motor Behavior: no abnormal motor movements Speech: normal rate/rhythm/volume of speech Affect: euthymic affect Mood: + anxious mood Thought Process: goal directed thought process and + concrete thought process Thought Content: reality based without delusions Suicidal Thoughts: denies suicidal thoughts Homicidal Thoughts: denies homicidal thoughts Hallucinations: no auditory hallucinations and no visual hallucinations Cognition: attention grossly intact and language grossly intact Estimated Intelligence: consistent with education level Insight: + limited insight Judgment: + limited judgement Vital Signs (Past 24 Hours) Last Vital Signs Temp 36.7 C 07/01/23 06:30 Pulse 86 07/01/23 06:31 Resp 16 07/01/23 06:30 BP 114/78 07/01/23 06:31 Pulse Ox 96 06/30/23 06:22 O2 Del Method Room Air 06/30/23 06:22 Results & Data ([facility]) Current Inpatient Medications Current Inpatient Medications: Current Inpatient Medications Acetaminophen (Acetaminophen 325 Mg Tab) 650 mg PO Q4H PRN PRN Reason: Headache or Minor Fever Stop: 07/28/23 17:08 Al Hydrox/Mg Hydrox/Simethicone (Aluminum/Magnesium Susp 30 Ml Udc) 30 ml PO Q4H PRN PRN Reason: GI Upset Stop: 07/28/23 17:08 Bismuth Subsalicylate (Bismuth Subsalicylate Liqd 236 Ml) 15 ml PO PRN PRN PRN Reason: Loose Stool Stop: 07/28/23 17:08 Cetirizine HCl (Cetirizine Hcl 10 Mg Tablet) 10 mg PO DAILY [facility] Stop: 07/29/23 08:59 Last Admin: 07/01/23 08:23 Dose: 10 mg Cyanocobalamin (Cyanocobalamin (B-12) 500 Mcg Tablet) 1,000 mcg PO QAM [facility] Stop: 07/29/23 08:59 Last Admin: 07/01/23 08:23 Dose: 1,000 mcg Cyclobenzaprine HCl (Cyclobenzaprine Hcl 10 Mg Tab) 10 mg PO BID [facility] Stop: 07/28/23 20:59 Last Admin: 06/30/23 21:07 Dose: 10 mg Dicyclomine HCl (Dicyclomine Hcl 20 Mg Tab) 20 mg PO BID [facility] Stop: 07/28/23 20:59 Last Admin: 07/01/23 08:23 Dose: 20 mg Docusate Sodium (Docusate Sodium 100 Mg Cap) 100 mg PO DAILY VALERI Stop: 07/29/23 08:59 Last Admin: 07/01/23 08:23 Dose: 100 mg Escitalopram Oxalate (Escitalopram Oxalate 10 Mg Tab) 15 mg PO DAILY [facility]I Stop: 07/29/23 08:59 Last Admin: 07/01/23 08:25 Dose: 15 mg Famotidine (Famotidine 20 Mg Tab) 20 mg PO HS [facility] Stop: 07/30/23 21:59 Last Admin: 06/30/23 21:06 Dose: 20 mg Fluticasone/Vilanterol (Fluticasone/Vilanterol 200/25mcg 14 Puffs/Inhaler) 1 puffs INH QAM [facility] Stop: 07/29/23 08:59 Last Admin: 07/01/23 08:24 Dose: 1 puffs Gabapentin (Gabapentin 800 Mg Tab) 800 mg PO TID [facility] Stop: 07/29/23 08:59 Last Admin: 07/01/23 08:24 Dose: 800 mg Hydroxyzine HCl (Hydroxyzine Hcl 25 Mg Tab) 50 mg PO HSZ PRN PRN Reason: Insomnia Stop: 07/28/23 17:08 Hydroxyzine HCl (Hydroxyzine Hcl 25 Mg Tab) 25 mg PO Q4H PRN PRN Reason: Anxiety Stop: 07/28/23 17:08 Hydroxyzine HCl (Hydroxyzine Hcl 25 Mg Tab) 100 mg PO HS [facility] Stop: 07/28/23 20:59 Last Admin: 06/30/23 21:08 Dose: 100 mg Levothyroxine Sodium (Levothyroxine Sodium 50 Mcg Tablet) 50 mcg PO DAILYBB [facility] Stop: 07/29/23 07:59 Last Admin: 07/01/23 08:22 Dose: 50 mcg Lisinopril (Lisinopril 5 Mg Tab) 5 mg PO QAM [facility] Stop: 07/29/23 08:59 Last Admin: 07/01/23 08:24 Dose: 5 mg Magnesium Hydroxide (Magnesium Hydroxide Susp 30 Ml Udc) 30 ml PO DAILY PRN PRN Reason: Constipation Stop: 07/28/23 17:08 Magnesium Oxide (Magnesium Oxide 400 Mg Tab) 400 mg PO QAM [facility] Stop: 07/29/23 08:59 Last Admin: 07/01/23 08:24 Dose: 400 mg Metformin HCl (Metformin Hcl Er 500 Mg Tabcr) 500 mg PO DAILYBD [facility] Stop: 07/29/23 17:14 Last Admin: 06/30/23 17:44 Dose: 500 mg Oxcarbazepine (Oxcarbazepine 150 Mg Tablet) 300 mg PO BID [facility] Stop: 07/28/23 20:59 Last Admin: 07/01/23 08:22 Dose: 300 mg Pantoprazole Sodium (Pantoprazole 40 Mg Tab) 40 mg PO QAM [facility] Stop: 07/29/23 08:59 Last Admin: 07/01/23 08:24 Dose: 40 mg Prazosin HCl (Prazosin Hcl 1 Mg Cap) 4 mg PO HS [facility] Stop: 07/28/23 20:59 Last Admin: 06/30/23 21:06 Dose: 4 mg Rizatriptan Benzoate (Rizatriptan Benzoate 10 Mg Tab) 10 mg PO UD PRN PRN Reason: Migraine Headache Stop: 07/28/23 17:13 Last Admin: 06/29/23 19:00 Dose: 10 mg Sodium Chloride (Sodium Chloride 0.65% Na Soln 45 Ml ([place])) 1 - 2 sprays NA PRN PRN PRN Reason: Nasal Dryness/Congestion Stop: 07/28/23 17:08 Vitamin D (Cholecalciferol 125 Mcg (5,000 Units) Tab) 125 mcg PO DAILY [facility] Stop: 07/29/23 08:59 Last Admin: 07/01/23 08:24 Dose: 125 mcg Mental Health & Subst Abuse Tx Psychiatrist Date Of Appointment With Psychiatric Provider: 07/04/22 Therapist Name of Therapist: Shauna @[facility] [employer] Name of [employer] Sales Representative: Arlyn Farr @[facility] Post Discharge Appointments Primary Care Physician Name Of Family Doctor/PCP: Delia Funes @[facility] [place]
[2023-07-02] MEDS: ESCITALOPRAM OXALATE 20 MG TAB PO ONE (08:59)
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
== END 2023-07-02 17:00 | disposition home or self-care (01) | DRG 885 ==
LOC: ED 11:44 → 3S 17:30

== ENCOUNTER 2024-05-01 22:19 | Inpatient (IN) ==
[2024-05-01] MEDS: ONDANSETRON INJ 2 MG/ML 2 ML VIAL IV STA (22:52)
[2024-05-01] MEDS: FAMOTIDINE 20MG IV PUSH 20 MG/5 ML SYR IV STA (22:52)
[2024-05-01] MEDS: DICYCLOMINE HCL 10 MG/ML 2 ML AMP/VIAL IM ONE (22:52)
[2024-05-01] MEDS: SODIUM CHLORIDE 0.9% 1,000 ML IV STA (22:53)
[2024-05-01 23:12] LABS: Basophils # (auto) 0.09 K/uL (0.00-0.20); Eosinophils # (auto) 0.26 K/uL (0.00-0.50); Eosinophils % (auto) 2.8 %; Hemoglobin 13.2 g/dl (12.0-16.0); Immature Granulocytes # (auto) 0.06 K/uL (0.01-0.20); Immature Granulocytes % (auto) 0.6 %; Lymphocytes # (auto) 3.37 K/uL (1.20-3.40); Lymphocytes % (auto) 35.9 %; Mean Corpuscular Hemoglobin 30.7 pg (25.0-34.0); Mean Corpuscular Hgb Conc 33.8 g/dL (32.0-36.0); Mean Corpuscular Volume 90.7 fL (80.0-100.0); Mean Platelet Volume 8.9 fL (9.4-12.4); Monocytes # (auto) 0.84 K/uL (0.11-0.59); Monocytes % (auto) 8.9 %; Neutrophils # (auto) 4.77 K/uL (1.40-6.50); Neutrophils % (auto) 50.8 %; Platelet Count 296 K/uL (130-400); RDW Standard Deviation 42.4 fL (36.4-46.3); White Blood Count 9.39 K/ul (4.8-10.8)
[2024-05-01 23:17] LABS: Appearance Urine Cloudy (Clear); Bacteria Urine Automated 4+ (None Seen); Bilirubin Urine Negative (Negative); Blood Urine 1+ (Negative); Cast Urine Automated 0-2 /lpf (0-2); Color Urine Yellow; Glucose Urine UA Negative (Negative); Ketones Urine Trace (Negative); Leukocyte Esterase Urine 3+ (Negative); Nitrite Urine Positive (Negative); Protein Urine 1+ (Negative); RBC Urine Automated 0-2 /hpf (0-2); Specific Gravity Urine 1.021 (1.000-1.030); Urobilinogen Urine Negative (Negative); WBC Urine Automated >50 /hpf (0-5)
[2024-05-01] MEDS: ACETAMINOPHEN 1,000 MG/100 ML VIAL IV STA (23:17)
[2024-05-01 23:31] LABS: Albumin Globulin Ratio 1.4 (0.9-2); Albumin Level 4.2 gm/dl (3.4-5.0); BUN Creatinine Ratio 24.7 (10-20); Bilirubin,Total 0.3 mg/dl (0.2-1.0); Calcium 9.1 mg/dl (8.6-10.3); Creatinine Clr Calc Pharmacy 78.9 ml/min; Potassium 3.6 mmol/L (3.5-5.1); Total Protein 7.2 gm/dl (6.0-8.3)
[2024-05-01 23:35] LABS: Pregnancy Test, Serum Negative (Negative)
[2024-05-02] MEDS: OPTIRAY 320 100ml IV ONE (00:59)
--- NOTE | 2024-05-02 01:57 | Emergency Department Note ---
History of Present Illness General Chief complaint: Abdominal Pain Stated complaint: Abdominal Pain, Diarrhea Time Seen by Provider: 05/01/24 22:32 History of Present Illness Maximum Pain Intensity: 10 This 49-year-old female presents ER complaining of abdominal pain this evening. Patient denies chest pain, dyspnea, fevers, chills, urinary symptoms or any other medical plaints. She had diarrhea yesterday is tapered off today. Home Medications Medication Instructions Recorded Confirmed Type fluticasone furoate 200 1 inh inhalation QAM 01/10/18 05/02/24 History mcg-vilanterol 25 mcg/dose inhalation powder (Breo Ellipta) fluticasone propionate 50 2 spray intranasal DAILY PRN 01/10/18 05/02/24 History mcg/actuation nasal Allergy Symptoms spray,suspension (Flonase Allergy Relief) rizatriptan 10 mg tablet (Maxalt) 10 mg PO UD PRN Migraine Headache 01/10/18 05/02/24 History Lactobacillus comb 1 cap PO QAM 10/14/18 05/02/24 History [id number] 300 million cell-250 mg capsule (Probiotic and Acidophilus) magnesium oxide 400 mg PO QAM 04/07/19 05/02/24 History ondansetron 4 mg disintegrating 4 mg PO Q8H PRN Nausea 08/08/19 05/02/24 History tablet cyanocobalamin (vitamin B-12) 1,000 mcg PO QAM 02/14/20 05/02/24 History 1,000 mcg tablet (Vitamin B-12) vitamin B complex 1 tab PO QAM 02/22/22 05/02/24 History sennosides 8.6 mg tablet (Senokot) 17.2 mg (2 x 8.6 mg) PO QAM PRN 02/27/22 05/02/24 Rx constipation #30 tabs albuterol sulfate 90 mcg/actuation 1 inh inhalation QID PRN Wheezing 03/26/22 05/02/24 History aerosol inhaler (ProAir HFA) albuterol sulfate 2.5 mg/3 mL 2.5 mg continuous nebulization Q4H 03/28/22 05/02/24 History (0.083 %) solution for nebulization PRN Shortness Of Breath Or Wheezing cholecalciferol (vitamin D3) 125 5,000 unit PO DAILY 07/12/22 05/02/24 History mcg (5,000 unit) capsule cranberry 500 mg capsule 125 mg PO QAM 08/23/22 05/02/24 History topiramate 200 mg tablet (Topamax) 200 mg PO BID #180 tabs 09/20/22 05/02/24 Rx docusate sodium 100 mg capsule 100 mg PO DAILY 02/08/23 05/02/24 History lisinopril 5 mg tablet 5 mg PO QAM #100 tabs 04/30/23 05/02/24 Rx cetirizine 10 mg tablet (Zyrtec) 10 mg PO DAILY #90 tabs 07/15/23 05/02/24 Rx pantoprazole 40 mg tablet,delayed 40 mg PO QAM #90 tabs 07/15/23 05/02/24 Rx release (Protonix) cyclobenzaprine 10 mg tablet 10 mg PO BID #180 tabs 09/30/23 05/02/24 Rx hydroxyzine HCl 50 mg tablet 100 mg (2 x 50 mg) PO HS 90 days 12/26/23 05/02/24 Rx #180 tabs levothyroxine 50 mcg tablet 50 mcg PO QAM #90 tabs 12/26/23 05/02/24 Rx meloxicam 7.5 mg tablet 15 mg (2 x 7.5 mg) PO DAILY PAIN 12/26/23 05/02/24 Rx #90 tabs cyclosporine 0.05 drp BID 01/01/24 05/02/24 History erythromycin 5 mg/gram (0.5 %) eye 1 applic ophthalmic (eye) DAILY 01/01/24 05/02/24 History ointment lidocaine 4 % topical patch 1 patch topical DAILY PRN Pain 01/01/24 05/02/24 History melatonin 3 mg tablet 6 mg PO PM 01/01/24 05/02/24 History lurasidone 20 mg tablet (Latuda) 20 mg PO DAILY #30 tabs 01/20/24 05/02/24 Rx oxcarbazepine 300 mg tablet 450 mg PO BID 01/20/24 05/02/24 History (Trileptal) epinephrine 0.3 mg/0.3 mL 0.3 mg (0.3 mL) IM DIRECTED PRN 01/24/24 05/02/24 Rx injection, auto-injector (EpiPen) Severe Allergic Reaction #2 ea famotidine 20 mg tablet 20 mg PO DAILY #90 tabs 01/31/24 05/02/24 Rx metformin 500 mg tablet,extended 500 mg PO QPM #100 tabs 02/14/24 05/02/24 Rx release 24 hr dicyclomine 20 mg tablet 20 mg PO BID 3 months #180 tabs 02/28/24 05/02/24 Rx gabapentin 800 mg tablet 800 mg PO TID #90 tabs 04/09/24 05/02/24 Rx Allergies Allergy/AdvReac Type Severity Reaction Status Date / Time bee venom protein (honey bee) Allergy Severe ANAPHYLAXIS Verified 05/02/24 04:33 tomato Allergy Intermediate Hives Verified 05/02/24 04:33 morphine AdvReac Intermediate HALLUCINATI Verified 05/02/24 04:33 ONS Past Med/Surg History Problem List Acute diarrhea Renal colic on left side (Acute) Ureterolithiasis (Acute) Acute UTI (Acute) Polycystic kidney disease Bilateral hydronephrosis Hypertension Suicidal ideation Bee sting-induced anaphylaxis History of suicidal ideation Basal cell carcinoma of skin of nose Viral URI with cough Borderline personality disorder Nasal sinus congestion UTI (urinary tract infection), uncomplicated Well adult exam Prediabetes Allergic rhinitis RAJEEV (obstructive sleep apnea) Asthma (06/09/12) Bipolar 2 disorder, major depressive episode (Chronic) UTI (urinary tract infection) (Acute) S/P ureteral stent placement Chronic back pain [place] (generalized anxiety disorder) (Chronic) Vitamin D deficiency (Chronic) Irritable bowel syndrome with constipation Insomnia Chronic migraine Kidney stone Patient with obstructing left renal stone and urosepsis Plan patient will be taken to the operating room for emergent stent placement for seizure risks and benefits discussed Gastroparesis PTSD (post-traumatic stress disorder) (Chronic) Hypothyroidism PCO (polycystic ovaries) GERD (gastroesophageal reflux disease) Migraine Obesity Fibromyalgia Peripheral neuropathy Medical History Small fiber neuropathy Bipolar 2 disorder History of anemia as a child Hx of Clostridium difficile infection end of 2021, tx w/abx. History of COVID-19 07/25/20>not hospitalized>"mild">resolved Suicidal ideation patient denies current or active SI/plan Right flank pain ongoing Pyelonephritis Hx of sepsis hospitalized at [facility] Feb 2022 for this > resolved per pt Hydronephrosis due to obstruction of ureter Right ureteral calculus Complicated bereavement Depression with suicidal ideation patient denies current or active SI/plan Recurrent UTI Chest pain "not recently"; follows with [facility] cardio records, atypical, attributed to GI etiology and anxiety Poor historian Hx of prolonged Q-T interval on ECG PER PT'S MEDICAL RECORD FROM PCP OFFICE. Fibroadenoma of breast RT Sleep apnea NO CPAP Asthma USES PRN INH APPROX 1-2 X MONTHLY; DENIES RECENT EXAC Closed head injury R/T FALL IN 2017; REPORTS CONCUSSION>"still gets very tired in the afternoon" E. coli septicemia hx Surgical History S/P cystoscopy with ureteral stent placement w/laser destruction kidney stone History of esophagogastroduodenoscopy (EGD) Status post labral repair of shoulder RT History of breast biopsy RT H/O lithotripsy History of cystoscopy Hx of shoulder surgery Hx of colonoscopy Hx of knee surgery RT History of ankle surgery RT Hx of cholecystectomy Family History Father Heart disease Other No significant family history Social History Smoking Status: Never smoker Second Hand Exposure: No; Do You Dip or Chew Tobacco: No; Hx Alcohol Use: No Hx Substance Use: No Preferred Language: Faroese Communication Ability: Effective Visual Impairment: Limited Hearing Ability: Use of Hearing Aid Lute Packer Or Applier Required: No Beliefs That Will Affect Care: None marital status: Single Current Living Situation: Parent Current Living Situation Comment: lives w/ mom. disabled. no drivers license current occupational status: disabled How many Children do You have: 0 Feels Safe at Home: Yes Childhood Exposure to Second-Hand Smoke: No Diet: regular caffeine: Yes during the past year weight has: remained stable Dental Care, Regularly: Yes Physical Activity Frequency: Daily Seatbelt Use: always Sunscreen Use: Yes Gender Identity: Female Assistive Devices: Glasses and Hearing Aid - Bilateral Review of Systems A total of 10 systems reviewed and were otherwise negative Physical Exam Vital Signs Vital Signs - 24 hr 05/01/24 22:56 05/01/24 23:22 05/01/24 23:27 Temperature 36.7 C Temperature Source Oral Pulse Rate 89 88 Pulse Rate from SpO2 Sensor Pulse Rhythm Regular Pulse Strength Normal Respiratory Rate 20 Respiratory Effort / Characteristics Non-Labored Spontaneous Respiratory Depth Normal Respiratory Pattern Regular Blood Pressure 117/72 Blood Pressure Mean 87 Blood Pressure Position Lying Pulse Oximetry 96 96 Oxygen Delivery Method Room Air Room Air Sepsis Recent Fever Within 48 Hours No Sepsis New/Unexplained Change in Mental Status No Sepsis Action Taken by Nursing No Action Required 05/02/24 00:00 05/02/24 00:30 05/02/24 01:00 Temperature Temperature Source Pulse Rate 92 H 81 86 Pulse Rate from SpO2 Sensor 93 H Pulse Rhythm Pulse Strength Respiratory Rate 20 18 20 Respiratory Effort / Characteristics Respiratory Depth Respiratory Pattern Blood Pressure 110/66 114/73 122/82 Blood Pressure Mean 73 88 86 Blood Pressure Position Pulse Oximetry 95 96 93 Oxygen Delivery Method Sepsis Recent Fever Within 48 Hours Sepsis New/Unexplained Change in Mental Status Sepsis Action Taken by Nursing 05/02/24 01:30 05/02/24 02:00 05/02/24 02:30 Temperature Temperature Source Pulse Rate 78 83 84 Pulse Rate from SpO2 Sensor 79 85 Pulse Rhythm Pulse Strength Respiratory Rate 13 13 18 Respiratory Effort / Characteristics Respiratory Depth Respiratory Pattern Blood Pressure 104/78 115/81 124/79 Blood Pressure Mean 83 91 111 Blood Pressure Position Pulse Oximetry 96 95 93 Oxygen Delivery Method Sepsis Recent Fever Within 48 Hours Sepsis New/Unexplained Change in Mental Status Sepsis Action Taken by Nursing 05/02/24 02:57 05/02/24 03:00 05/02/24 03:30 Temperature Temperature Source Pulse Rate 79 Pulse Rate from SpO2 Sensor 79 Pulse Rhythm Pulse Strength Respiratory Rate 13 Respiratory Effort / Characteristics Respiratory Depth Respiratory Pattern Blood Pressure 124/71 94/66 L Blood Pressure Mean 104 77 Blood Pressure Position Pulse Oximetry 95 Oxygen Delivery Method Sepsis Recent Fever Within 48 Hours Sepsis New/Unexplained Change in Mental Status Sepsis Action Taken by Nursing 05/02/24 03:30 05/02/24 03:36 Temperature Temperature Source Pulse Rate 79 Pulse Rate from SpO2 Sensor Pulse Rhythm Pulse Strength Respiratory Rate 18 Respiratory Effort / Characteristics Respiratory Depth Respiratory Pattern Blood Pressure 94/66 L Blood Pressure Mean 77 Blood Pressure Position Pulse Oximetry Oxygen Delivery Method Sepsis Recent Fever Within 48 Hours Sepsis New/Unexplained Change in Mental Status Sepsis Action Taken by Nursing VITALS: Vitals are noted on the nurse's note and reviewed by myself. Vital signs stable. GENERAL: Pleasant female, in no acute distress, nondiaphoretic, well-developed well-nourished. SKIN: Capillary reflex less than 2 seconds. HEENT: Normocephalic. PERRLA. EOMI. Nares patent. Mucous membranes moist. Neck is supple without nuchal rigidity. HEART: Regular rate and rhythm LUNGS: Clear to auscultation bilaterally without wheezes, rales or rhonchi. No retractions or accessory muscle use. ABDOMEN: Positive bowel sounds x 4. Normal tympanic percussion. Soft, tender lower abdomen, without masses or organomegaly. Hankins sign negative. No guarding or rebound tenderness. no CVA tenderness MUSCULOSKELETAL: No gross musculoskeletal defects. NEURO: Patient was alert and oriented to person place and time. No focal neurological deficits. Course Administered Medications Fluticasone/Vilanterol (Fluticasone/Vilanterol 200/25mcg 14 Puffs/Inhaler) 1 puffs INH QAM VALERI Stop: 06/01/24 08:59 Last Admin: 05/02/24 12:05 Dose: 1 puffs Documented By: ML Sodium Chloride (Nss) 1,000 mls @ 125 mls/hr IV .Q8H VALERI Stop: 05/03/24 03:59 Last Admin: 05/02/24 12:13 Dose: 125 mls/hr Documented By: Infusion: 05/02/24 12:13 Dose: Infused Documented By: Admin: 05/02/24 04:21 Dose: 125 mls/hr Documented By: ES Cefepime HCl (Maxipime 2000mg) 2,000 mg in 20 mls @ 5 mls/min IV Q8H VALERI; Protocol Stop: 05/07/24 09:59 Last Admin: 05/02/24 10:11 Dose: 5 mls/min Documented By: SRL Pantoprazole Sodium (Protonix) 40 mg in 10 mls @ 5 mls/min IV DAILY VALERI Stop: 06/01/24 08:59 Last Admin: 05/02/24 10:11 Dose: 5 mls/min Documented By: SRL Daptomycin 425 mg/ Syringe 8.5 mls @ 4.25 mls/min IV Q24H VALERI; Protocol Stop: 05/04/24 10:59 Last Admin: 05/02/24 12:06 Dose: 4.25 mls/min Documented By: ML Promethazine HCl 6.25 mg/ (Sodium Chloride) 50.25 mls @ 204 mls/hr IV ONCE PRN PRN Reason: PACU Use Only-Nausea/Vomiting Stop: 05/03/24 00:35 Last Infusion: 05/02/24 17:33 Dose: Infused Documented By: Admin: 05/02/24 16:35 Dose: 204 mls/hr Documented By: SED Insulin Aspart (Insulin Aspart Per Unit Charge) 0 units SC Q6 VALERI Stop: 06/01/24 06:59 Last Admin: 05/02/24 12:19 Dose: Not Given Documented By: CHAPARRO Co-signed By: YUMI Admin: 05/02/24 08:11 Dose: Not Given Documented By: SRL Levothyroxine Sodium (Levothyroxine Sodium 50 Mcg Tablet) 50 mcg PO DAILYBB [facility] Stop: 06/01/24 06:59 Last Admin: 05/02/24 10:12 Dose: 50 mcg Documented By: SRL Lurasidone HCl (Lurasidone Hcl 20 Mg Tab) 20 mg PO DAILY VALERI Stop: 06/01/24 08:59 Last Admin: 05/02/24 10:12 Dose: 20 mg Documented By: SRL Oxcarbazepine (Oxcarbazepine 150 Mg Tablet) 450 mg PO BID VALERI Stop: 06/01/24 08:59 Last Admin: 05/02/24 10:11 Dose: 450 mg Documented By: SRL Topiramate (Topiramate 100 Mg Tab) 200 mg PO BID AVLERI Stop: 06/01/24 08:59 Last Admin: 05/02/24 10:12 Dose: 200 mg Documented By: SRL Discontinued Medications Diatrizoate Meglumine (Diatrizoate Meglumine 30% 100ml Vial) 100 ml INSTIL ONCE ONE Stop: 05/02/24 16:30 Last Admin: 05/02/24 16:30 Dose: 8 ml Documented By: [id number] Dicyclomine HCl (Dicyclomine Hcl 10 Mg/Ml 2 Ml Amp/Vial) 20 mg IM NOW ONE Stop: 05/01/24 22:38 Last Admin: 05/01/24 23:03 Dose: Not Given Documented By: EMB Fentanyl Citrate (Fentanyl Citrate Pf 100 Mcg/2 Ml Vial) 25 mcg IV Q5M PRN PRN Reason: PACU Use Only-Pain Stop: 05/02/24 23:44 Last Admin: 05/02/24 17:00 Dose: 25 mcg Documented By: Admin: 05/02/24 16:54 Dose: 25 mcg Documented By: Admin: 05/02/24 16:47 Dose: 25 mcg Documented By: VILMA Sodium Chloride (Nss) 1,000 mls @ 999 mls/hr IV .Q1H1M STA Stop: 05/01/24 23:37 Last Infusion: 05/02/24 00:49 Dose: Infused Documented By: Admin: 05/01/24 22:53 Dose: 999 mls/hr Documented By: LEWIS Famotidine (Pepcid 20mg Iv Push) 20 mg in 5 mls @ 2.5 mls/min IV NOW STA Stop: 05/01/24 22:38 Last Admin: 05/01/24 22:52 Dose: 2.5 mls/min Documented By: LEWIS Acetaminophen (Ofirmev) 1,000 mg in 100 mls @ 400 mls/hr IV NOW STA Stop: 05/01/24 23:19 Last Infusion: 05/02/24 00:49 Dose: Infused Documented By: Admin: 05/01/24 23:17 Dose: 400 mls/hr Documented By: CIRA Cefepime HCl (Maxipime 2000mg) 2,000 mg in 20 mls @ 5 mls/min IV NOW STA; Protocol Stop: 05/02/24 02:03 Last Admin: 05/02/24 02:04 Dose: 5 mls/min Documented By: CIRA Ioversol (Optiray 320 100ml) 94 ml IV ONCE ONE Stop: 05/02/24 00:55 Last Admin: 05/02/24 00:59 Dose: 94 ml Documented By: MARY Ondansetron HCl (Ondansetron Inj 2 Mg/Ml 2 Ml Vial) 4 mg IV NOW STA Stop: 05/01/24 22:38 Last Admin: 05/01/24 22:52 Dose: 4 mg Documented By: LEWIS Promethazine HCl (Promethazine Hcl Inj 25 Mg/Ml 1 Ml Vial) Confirm Administered Dose 25 mg .ROUTE .STK-MED ONE Stop: 05/02/24 16:37 Last Admin: 05/02/24 17:03 Dose: Not Given Documented By: SED Medical Decision Making Medical Records Attestation: I reviewed the patient's medical records. Home Medications Current Medication List: was personally reviewed by me Laboratory Data Attestation: I reviewed the patient's lab results. 05/01/24 23:00 05/01/24 23:00 Lab Results 05/01/24 Range/Units 23:00 WBC 9.39 (4.8-10.8) K/ul RBC 4.30 (4.20-5.40) M/uL Hgb 13.2 (12.0-16.0) g/dl Hct 39.0 (37.0-47.0) % MCV 90.7 (80.0-100.0) fL MCH 30.7 (25.0-34.0) pg MCHC 33.8 (32.0-36.0) g/dL RDW Std Deviation 42.4 (36.4-46.3) fL RDW Coeff of Kailee 13.0 (11.5-14.5) % Plt Count 296 (130-400) K/uL MPV 8.9 L (9.4-12.4) fL Immature Gran % (Auto) 0.6 % Neut % (Auto) 50.8 % Lymph % (Auto) 35.9 % [place] % (Auto) 8.9 % Eos % (Auto) 2.8 % Baso % (Auto) 1.0 % Neut # (Auto) 4.77 (1.40-6.50) K/uL Lymph # (Auto) 3.37 (1.20-3.40) K/uL [place] # (Auto) 0.84 H (0.11-0.59) K/uL Eos # (Auto) 0.26 (0.00-0.50) K/uL Baso # (Auto) 0.09 (0.00-0.20) K/uL Immature Gran # (Auto) 0.06 (0.01-0.20) K/uL Sodium 141 (136-145) mmol/L Potassium 3.6 (3.5-5.1) mmol/L Chloride 113 H (98-107) mmol/L Carbon Dioxide 23 (21-32) mmol/L Anion Gap 5 (3-11) BUN 23 (6-23) mg/dl Creatinine 0.93 (0.6-1.2) mg/dl Est Cr Clr Drug Dosing 78.9 ml/min eGFR 74.41 BUN/Creatinine Ratio 24.7 H (10-20) Glucose 114 H (70-99(Fasting)) mg/dl Calcium 9.1 (8.6-10.3) mg/dl Total Bilirubin 0.3 (0.2-1.0) mg/dl AST 15 (13-39) U/L ALT 17 (7-52) U/L Alkaline Phosphatase 60 (34-104) U/L Total Protein 7.2 (6.0-8.3) gm/dl Albumin 4.2 (3.4-5.0) gm/dl Globulin 3.0 (2.5-4.0) gm/dl Albumin/Globulin Ratio 1.4 (0.9-2) Lipase 38 (11-82) U/L HCG, Qual Negative (Negative) Urine Color Yellow Urine Appearance Cloudy A (Clear) Urine pH 6.0 (4.5-7.5) Ur Specific [place] 1.021 (1.000-1.030) Urine Protein 1+ H (Negative) Urine Glucose (UA) Negative (Negative) Urine Ketones Trace H (Negative) Urine Blood 1+ H (Negative) Urine Nitrite Positive A (Negative) Urine Bilirubin Negative (Negative) Urine Urobilinogen Negative (Negative) Ur Leukocyte Esterase 3+ H (Negative) Urine WBC (Auto) >50 H (0-5) /hpf Urine RBC (Auto) 0-2 (0-2) /hpf U Hyaline Cast (Auto) 0-2 (0-2) /lpf U Epithel Cells (Auto) 6-10 H (0-2) /hpf Urine Bacteria (Auto) 4+ H (None Seen) Imaging Data Attestation: I personally reviewed and interpreted this imaging study as follows: Radiologist's Impression: Abdomen/Pelvis CT 05/01/24 22:38 EXAM: CT abd pelvis IV con only CLINICAL HISTORY: lower abd pain 94 ml opti 320 GS/PW TECHNIQUE: CT of the abdomen and pelvis was performed with contrast, with the following protocol: axial images with, and reconstructed coronal and sagittal images. One of the following dose reduction techniques was utilized for this exam: Automated exposure control, adjustment of the mA and/or kV according to patient size, and use of iterative reconstruction. COMPARISON: Comparison is made with prior scan dated 06/03/2021. FINDINGS: Abdomen: Liver: Normal in size, shape, and density. No focal lesions, cysts, or masses were identified. Hepatic vasculature and biliary ducts are unremarkable. Gallbladder and Biliary System: The gallbladder is post operative status. The common bile duct is normal in caliber without dilation. Pancreas: Pancreatic head, body, and tail are visualized and appear normal in size and density. No pancreatic masses or calcifications were noted. The pancreatic duct is not dilated. Spleen: Normal in size, shape, and density. No splenic lesions or masses were identified. Appendix: The appendix is normal in size without dewayne appendiceal fat stranding, and with a small appendicolith. No evidence of appendiceal abscess or perforation. Kidneys and Adrenal Glands: Both kidneys are normal in size, shape, and position with few small renal cortical cysts and scars; largest cyst in left kidney at lower pole measures~9x10mm showing focal calcification. Mild bilateral hydronephrosis with a 8mm calculus seen in left upper ureter. No obvious calculus is seen in right ureter. A [id number] sized hypoenhancing lesion is seen in right adrenal gland and similar [id number] sized lesion in left adrenal gland in its medial limb likely adenoma. Pelvis: Urinary Bladder: Normal in contour and wall thickness. No intraluminal lesions identified. Uterus: Normal in size and contour. No masses or abnormal thickening. Ovaries: Not well visualized but no gross abnormalities noted. Vagina: Normal in contour and wall thickness. A [id number] sized non enhancing cyst is seen in inferior aspect of vaginal wall below the level of pubic symphyses. Cervix: No evidence of mass or abnormal thickening. Peritoneal and Retroperitoneal Structures: No free fluid or abnormal fluid collections were identified within the abdomen or pelvis. No lymphadenopathy was noted. Bowel: The visualized bowel loops are normal in caliber and appearance. No evidence of bowel obstruction or wall thickening. Note is made of small umbilical hernia with defect of 15mm and few small paraumbilical hernias. Bones and Soft Tissues: Pelvic bones and soft tissues are unremarkable. No fractures or abnormal masses were identified. IMPRESSION: 1. Bilateral renal cortical cysts and scars with a Type II calcified cyst in left kidney. Stable since last scan. 2. Mild bilateral hydronephrosis with a 8mm calculus in left upper ureter. This calculus was not seen in prior scan. 3. Stable hypoenhancing lesions in bilateral adrenal glands likely adenomas. 3. Stable small umbilical hernia with defect of 15mm and few small paraumbilical hernias. 4. A [id number] sized non enhancing cyst is seen in inferior aspect of vaginal wall below the level of pubic symphyses suggestive of bartholin's cyst. Mild increase in size of cyst as compared to prior scan. Electronically signed by Donato Spicer 05-02-2024 02:57 AM MDM Narrative Prior records/ancillary studies reviewed. Triage Nursing notes reviewed. Additional history obtained from nursing The patient's history was concerning for abdominal pain. Differential diagnosis: Etiologies such as appendicitis, diverticulitis, PUD, biliary pathology, UTI, pancreatitis, obstruction, mesenteric ischemia, aortic pathology, infections, inflammatory bowel disease, renal colic, as well as others were entertained. Physical examination findings: As above. ER treatment provided: An order was placed for continuous cardiac monitoring. The monitor shows a rate of 60-100 with a sinus rhythm per my Independent interpretation. IV fluids, Zofran, Bentyl, Pepcid Cefepime for UTI On reassessment the patient felt better. Diagnostics interpreted by me: The labs Independently Interpreted by myself revealed no worrisome leukocytosis, negative hCG, urine concerning for infection and sent for culture. Prior culture was reviewed [address], [place] [address] / Director: Tiffanie Yip M.D. Clinical Laboratory Report Name: DONALD RAMIREZ Acct: [id number] Status: IDANIA CHAVIRA : 1975 [facility] [place] Date: 04/15/23 Age: 49 Sex: F Dis Date: Loc: Laboratory Specimen Drop Off Spec: [id number] Collected: 02/14/24-1034 Received: 02/14/24-1320 [facility] Dr: Delia Funes CRNP Source: Urine,Random OV Order: Ordered: Urine Culture Procedure Result Verified Site Urine Culture Final 02/17/24 Organism 1 Escherichia coli [place]rell Count >100,000 CFU/ml Sens Sensitivities to Follow E coli RX M.I.C. --- --------- Amikacin S <=16 Amox/Clav R >16/8 Ampicillin R >16 Amp/Sul I 16/8 Cefazolin R >16 Cefepime S <=2 Cefotaxime S 8 Cefoxitin I 16 Ceftriaxone R 8 Cefuroxime R >16 Ciprofloxacin S <=0.25 Ertapenem S <=0.5 Gentamicin S <=2 Levofloxacin S <=0.5 Meropenem S <=1 Nitrofurantoin S <=32 Tobramycin S <=2 Trimeth/Sulfa S <=0.5/9.5 Pip/Tazo S <=8 S = SENSITIVE I = INTERMEDIATE R = RESISTANT Imaging studies: Imaging was reviewed and read by radiology Consultation: A consultation was placed with the hospitalist. The case was discussed and diagnostics were reviewed. The patient was evaluated in the ER for further treatment. Exam and history seem consistent with UTI and kidney stone. Patient was given antibiotics. Medicine was consulted and the case discussed. She will be evaluated for admission. Patient had no left-sided abdominal pain. Her pain was right-sided. Prior urine culture was reviewed. She is given cefepime. Patient is agreeable treatment plan of admission. By the evaluation outlined above emergent etiologies such as appendicitis, diverticulitis, PUD, biliary pathology, pancreatitis, obstruction, mesenteric ischemia, aortic pathology, inflammatory bowel disease, as well as others were deemed relatively unlikely. The pt informed about the findings as listed above. All questions were answered and pleased with the treatment. The chart was completed utilizing [employer] Speech voice recognition software. Grammatical errors, random word insertions, pronoun errors, and incomplete sentences are an occassional consequence of this system due to software limitations, ambient noise, and hardware issues. Any formal questions or concerns about the content, text, or information contained within the body of this dictation should be directly addressed to the physician orthotic assistant for clarification. Impression & Plan Acute UTI, Ureterolithiasis, Renal colic on left side Discharge Plan Visit Data Chief Complaint: Abdominal Pain Stated Complaint: Abdominal Pain, Diarrhea ED Provider: Semaj Bond ED Midlevel Provider: Chantel Ramirez Discharge Problem: Acute UTI, Ureterolithiasis, Renal colic on left side Patient Disposition: Admitted As Inpatient Condition: Good Discharge Instructions Interventions: ED Discharge Assessment Last Done: 05/02/24 15:14
[2024-05-02] MEDS: CEFEPIME 2000MG 2,000 MG/20 ML SYR IV STA (02:04)
--- NOTE | 2024-05-02 02:57 | CT Scan Report ---
EXAM: CT abd pelvis IV con only CLINICAL HISTORY: lower abd pain 94 ml opti 320 GS/PW TECHNIQUE: CT of the abdomen and pelvis was performed with contrast, with the following protocol: axial images with, and reconstructed coronal and sagittal images. One of the following dose reduction techniques was utilized for this exam: Automated exposure control, adjustment of the mA and/or kV according to patient size, and use of iterative reconstruction. COMPARISON: Comparison is made with prior scan dated 06/03/2021. FINDINGS: Abdomen: Liver: Normal in size, shape, and density. No focal lesions, cysts, or masses were identified. Hepatic vasculature and biliary ducts are unremarkable. Gallbladder and Biliary System: The gallbladder is post operative status. The common bile duct is normal in caliber without dilation. Pancreas: Pancreatic head, body, and tail are visualized and appear normal in size and density. No pancreatic masses or calcifications were noted. The pancreatic duct is not dilated. Spleen: Normal in size, shape, and density. No splenic lesions or masses were identified. Appendix: The appendix is normal in size without dewayne appendiceal fat stranding, and with a small appendicolith. No evidence of appendiceal abscess or perforation. Kidneys and Adrenal Glands: Both kidneys are normal in size, shape, and position with few small renal cortical cysts and scars; largest cyst in left kidney at lower pole measures~9x10mm showing focal calcification. Mild bilateral hydronephrosis with a 8mm calculus seen in left upper ureter. No obvious calculus is seen in right ureter. A [id number] sized hypoenhancing lesion is seen in right adrenal gland and similar [id number] sized lesion in left adrenal gland in its medial limb likely adenoma. Pelvis: Urinary Bladder: Normal in contour and wall thickness. No intraluminal lesions identified. Uterus: Normal in size and contour. No masses or abnormal thickening. Ovaries: Not well visualized but no gross abnormalities noted. Vagina: Normal in contour and wall thickness. A [id number] sized non enhancing cyst is seen in inferior aspect of vaginal wall below the level of pubic symphyses. Cervix: No evidence of mass or abnormal thickening. Peritoneal and Retroperitoneal Structures: No free fluid or abnormal fluid collections were identified within the abdomen or pelvis. No lymphadenopathy was noted. Bowel: The visualized bowel loops are normal in caliber and appearance. No evidence of bowel obstruction or wall thickening. Note is made of small umbilical hernia with defect of 15mm and few small paraumbilical hernias. Bones and Soft Tissues: Pelvic bones and soft tissues are unremarkable. No fractures or abnormal masses were identified. IMPRESSION: 1. Bilateral renal cortical cysts and scars with a Type II calcified cyst in left kidney. Stable since last scan. 2. Mild bilateral hydronephrosis with a 8mm calculus in left upper ureter. This calculus was not seen in prior scan. 3. Stable hypoenhancing lesions in bilateral adrenal glands likely adenomas. 3. Stable small umbilical hernia with defect of 15mm and few small paraumbilical hernias. 4. A [id number] sized non enhancing cyst is seen in inferior aspect of vaginal wall below the level of pubic symphyses suggestive of bartholin's cyst. Mild increase in size of cyst as compared to prior scan. Electronically signed by Donato Spicer 05-02-2024 02:57 AM
--- NOTE | 2024-05-02 03:29 | History & Physical Report ---
Date of Service May 02, 2024 Assessment & Plan (1) Kidney stone: (2) Bilateral hydronephrosis: (3) UTI (urinary tract infection): (4) Polycystic kidney disease: (5) Acute diarrhea: (6) Prediabetes: (7) Hypertension: Plan Patient is a 49-year-old female with a past medical history of recurrent UTIs, bipolar disorder, depression, asthma, sleep apnea, prediabetes, HTN. She presents today due to abdominal pain. She is being admitted for a UTI and nephrolithiasis. Will consult urology. #left nephrolithiasis/UTI/bilateral hydronephrosis patient with history of recurrent UTIs and nephrolithiasis UTI history of E. coli with many resistances; susceptible to Cefepime UA infectious 1+ protein, trace ketones, 3+ leukocyte esterase, >50 WBC, 4+ bacteria, 6-[address] showing bilateral hydronephrosis with 8 mm calculus of left upper ureter IV acetaminophen and Zofran as needed Continue cefepime Gentle IVF resuscitation Consult urology Urine strainer N.p.o. #polycystic kidney disease Many bilateral renal cysts seen on CT scan possibly contributing to right sided pain although unlikely Urology consulted as above #diarrhea Diarrhea x 3 days; now resolved Likely dehydrated; gentle IVF resuscitation If returns, could consider stool cultures #preDM on metformin at home; held Loose SSI with correction factor 30, defer carb ratio #HTN/hypotension mildly hypotensive in ED Likely secondary to dehydration with diarrhea above IV fluids ordered Hold lisinopril Chronic stable diagnoses: PCOS - cysts seen on CT bipolar disorder/anxiety/depression - continue home hydroxyzine, lurasidone, melatonin, oxcarbazepine, topiramate fibromyalgia/chronic back pain - hold home Flexeril and gabapentin until no longer n.p.o. GERD - hold PO PPI and Pepcid until no longer NPO - will order IV protonix Asthma - continue inhalers hypothyroidism - continue levothyroxine VTE ppx: SCDs; defer chemical PPx possible surgical management Diet: NPO Dispo: med surg Admission and Anticipated Discharge Date Admission Date: 05/02/24 History of Present Illness Chief Complaint: abdominal pain Primary Care Provider: BERNARDINO Moore Patient is a 49-year-old female with a past medical history of recurrent UTIs, bipolar disorder, depression, asthma, sleep apnea, prediabetes, HTN. She presents today due to abdominal pain. She is being admitted for a UTI and nephrolithiasis. Will consult urology. Patient seen at bedside. She stated that she began with right sided abdominal pain at 7 PM this evening; the pain is still present and has not changed. She denies left-sided abdominal pain. She stated that she has had an odor to her urine for approximately a week and suspected that she had a UTI. She has also had diarrhea for the past 3 days; resolved today. She also endorses nausea but no vomiting. She has a history of kidney stones requiring stent placement. Patient denies fever, chills, rhinorrhea, sore throat, cough, sputum production, dyspnea, dyspnea on exertion, chest pain, vomiting. She does not use nicotine products or drink alcohol. She does have a history of sleep apnea however no longer needs to use her CPAP machine; had a repeat sleep study that determined she no longer has sleep apnea. She did take her evening medications last night. She wishes to be full code at this time. Allergies Allergy/AdvReac Type Severity Reaction Status Date / Time bee venom protein (honey bee) Allergy Severe ANAPHYLAXIS Verified 05/02/24 04:33 tomato Allergy Intermediate Hives Verified 05/02/24 04:33 morphine AdvReac Intermediate HALLUCINATI Verified 05/02/24 04:33 ONS Home Medications Medication Instructions Recorded Confirmed Type fluticasone furoate 200 1 inh inhalation QAM 01/10/18 05/02/24 History mcg-vilanterol 25 mcg/dose inhalation powder (Breo Ellipta) fluticasone propionate 50 2 spray intranasal DAILY PRN 01/10/18 05/02/24 History mcg/actuation nasal Allergy Symptoms spray,suspension (Flonase Allergy Relief) rizatriptan 10 mg tablet (Maxalt) 10 mg PO UD PRN Migraine Headache 01/10/18 05/02/24 History Lactobacillus comb 1 cap PO QAM 10/14/18 05/02/24 History no.[id number] 300 million cell-250 mg capsule (Probiotic and Acidophilus) magnesium oxide 400 mg PO QAM 04/07/19 05/02/24 History ondansetron 4 mg disintegrating 4 mg PO Q8H PRN Nausea 08/08/19 05/02/24 History tablet cyanocobalamin (vitamin B-12) 1,000 mcg PO QAM 02/14/20 05/02/24 History 1,000 mcg tablet (Vitamin B-12) vitamin B complex 1 tab PO QAM 02/22/22 05/02/24 History sennosides 8.6 mg tablet (Senokot) 17.2 mg (2 x 8.6 mg) PO QAM PRN 02/27/22 05/02/24 Rx constipation #30 tabs albuterol sulfate 90 mcg/actuation 1 inh inhalation QID PRN Wheezing 03/26/22 05/02/24 History aerosol inhaler (ProAir HFA) albuterol sulfate 2.5 mg/3 mL 2.5 mg continuous nebulization Q4H 03/28/22 05/02/24 History (0.083 %) solution for nebulization PRN Shortness Of Breath Or Wheezing cholecalciferol (vitamin D3) 125 5,000 unit PO DAILY 07/12/22 05/02/24 History mcg (5,000 unit) capsule cranberry 500 mg capsule 125 mg PO QAM 08/23/22 05/02/24 History topiramate 200 mg tablet (Topamax) 200 mg PO BID #180 tabs 09/20/22 05/02/24 Rx docusate sodium 100 mg capsule 100 mg PO DAILY 02/08/23 05/02/24 History lisinopril 5 mg tablet 5 mg PO QAM #100 tabs 04/30/23 05/02/24 Rx cetirizine 10 mg tablet (Zyrtec) 10 mg PO DAILY #90 tabs 07/15/23 05/02/24 Rx pantoprazole 40 mg tablet,delayed 40 mg PO QAM #90 tabs 07/15/23 05/02/24 Rx release (Protonix) cyclobenzaprine 10 mg tablet 10 mg PO BID #180 tabs 09/30/23 05/02/24 Rx hydroxyzine HCl 50 mg tablet 100 mg (2 x 50 mg) PO HS 90 days 12/26/23 05/02/24 Rx #180 tabs levothyroxine 50 mcg tablet 50 mcg PO QAM #90 tabs 12/26/23 05/02/24 Rx meloxicam 7.5 mg tablet 15 mg (2 x 7.5 mg) PO DAILY PAIN 12/26/23 05/02/24 Rx #90 tabs cyclosporine 0.05 drp BID 01/01/24 05/02/24 History erythromycin 5 mg/gram (0.5 %) eye 1 applic ophthalmic (eye) DAILY 01/01/24 05/02/24 History ointment lidocaine 4 % topical patch 1 patch topical DAILY PRN Pain 01/01/24 05/02/24 History melatonin 3 mg tablet 6 mg PO PM 01/01/24 05/02/24 History lurasidone 20 mg tablet (Latuda) 20 mg PO DAILY #30 tabs 01/20/24 05/02/24 Rx oxcarbazepine 300 mg tablet 450 mg PO BID 01/20/24 05/02/24 History (Trileptal) epinephrine 0.3 mg/0.3 mL 0.3 mg (0.3 mL) IM DIRECTED PRN 01/24/24 05/02/24 Rx injection, auto-injector (EpiPen) Severe Allergic Reaction #2 ea famotidine 20 mg tablet 20 mg PO DAILY #90 tabs 01/31/24 05/02/24 Rx metformin 500 mg tablet,extended 500 mg PO QPM #100 tabs 02/14/24 05/02/24 Rx release 24 hr dicyclomine 20 mg tablet 20 mg PO BID 3 months #180 tabs 02/28/24 05/02/24 Rx gabapentin 800 mg tablet 800 mg PO TID #90 tabs 04/09/24 05/02/24 Rx prazosin 4 mg HS 05/02/24 05/02/24 History Past Med/Surg History Problem List Acute diarrhea Renal colic on left side (Acute) Ureterolithiasis (Acute) Acute UTI (Acute) Polycystic kidney disease Bilateral hydronephrosis Hypertension Suicidal ideation Bee sting-induced anaphylaxis History of suicidal ideation Basal cell carcinoma of skin of nose Viral URI with cough Borderline personality disorder Nasal sinus congestion UTI (urinary tract infection), uncomplicated Well adult exam Prediabetes Allergic rhinitis RAJEEV (obstructive sleep apnea) Asthma (06/09/12) Bipolar 2 disorder, major depressive episode (Chronic) UTI (urinary tract infection) (Acute) S/P ureteral stent placement Chronic back pain [place] (generalized anxiety disorder) (Chronic) Vitamin D deficiency (Chronic) Irritable bowel syndrome with constipation Insomnia Chronic migraine Kidney stone Patient with obstructing left renal stone and urosepsis Plan patient will be taken to the operating room for emergent stent placement for seizure risks and benefits discussed Gastroparesis PTSD (post-traumatic stress disorder) (Chronic) Hypothyroidism PCO (polycystic ovaries) GERD (gastroesophageal reflux disease) Migraine Obesity Fibromyalgia Peripheral neuropathy Medical History Small fiber neuropathy Bipolar 2 disorder History of anemia as a child Hx of Clostridium difficile infection end of 2021, tx w/abx. History of COVID-19 07/25/20>not hospitalized>"mild">resolved Suicidal ideation patient denies current or active SI/plan Right flank pain ongoing Pyelonephritis Hx of sepsis hospitalized at [facility] Feb 2022 for this > resolved per pt Hydronephrosis due to obstruction of ureter Right ureteral calculus Complicated bereavement Depression with suicidal ideation patient denies current or active SI/plan Recurrent UTI Chest pain "not recently"; follows with [facility] cardio records, atypical, attributed to GI etiology and anxiety Poor historian Hx of prolonged Q-T interval on ECG PER PT'S MEDICAL RECORD FROM PCP OFFICE. Fibroadenoma of breast RT Sleep apnea NO CPAP Asthma USES PRN INH APPROX 1-2 X MONTHLY; DENIES RECENT EXAC Closed head injury R/T FALL IN 2016; REPORTS CONCUSSION>"still gets very tired in the afternoon" E. coli septicemia hx Surgical History S/P cystoscopy with ureteral stent placement w/laser destruction kidney stone History of esophagogastroduodenoscopy (EGD) Status post labral repair of shoulder RT History of breast biopsy RT H/O lithotripsy History of cystoscopy Hx of shoulder surgery Hx of colonoscopy Hx of knee surgery RT History of ankle surgery RT Hx of cholecystectomy Family History Father Heart disease Other No significant family history Social History Smoking Status: Never smoker Second Hand Exposure: No; Do You Dip or Chew Tobacco: No; Hx Alcohol Use: No Hx Substance Use: No Preferred Language: Tongan Communication Ability: Effective Visual Impairment: Limited Hearing Ability: Use of Hearing Aid 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 Required: No Beliefs That Will Affect Care: None marital status: Single Current Living Situation: Parent Current Living Situation Comment: pt lives with her mother current occupational status: disabled How many Children do You have: 0 Feels Safe at Home: Yes Childhood Exposure to Second-Hand Smoke: No Diet: regular caffeine: Yes during the past year weight has: remained stable Dental Care, Regularly: Yes Physical Activity Frequency: Daily Seatbelt Use: always Sunscreen Use: Yes Gender Identity: Female Assistive Devices: Glasses Review of Systems Review of Systems: see hpi Physical Exam Physical Exam: The patient is awake, alert and oriented 3, well developed and well nourished, normocephalic and atraumatic, in no acute distress. Non-toxic appearing. HEENT- EOMI, mucous membranes moist. Hearing grossly intact. Heart-normal S1 and S2. No murmurs, rubs or gallops. Lungs-clear bilaterally, no respiratory distress, no accessory muscle use. Abdomen-normal bowel sounds and soft. No ascites noted. Tender to palpation of all quadrants. Extremities- no clubbing, cyanosis, or edema. Rheumatologic-normal range of motion. Psychiatric-normal affect. Results & Data Results & Data Vital Signs (Past 12 Hours) Vital Signs Temp Pulse Resp BP Pulse Ox O2 Del Method 05/02/24 02:30 84 18 124/79 93 05/02/24 02:00 83 13 115/81 95 05/02/24 01:30 78 13 104/78 96 05/02/24 01:00 86 20 122/82 93 05/02/24 00:30 81 18 114/73 96 05/02/24 00:00 92 H 20 110/66 95 05/01/24 23:27 88 05/01/24 23:22 36.7 C 89 20 117/72 96 Room Air 05/01/24 22:56 96 Room Air Laboratory Results Reviewed CBC, CMP, UA Diagnostic Findings ct ap Medications Administered ED: 1L NSS, Zofran, Bentyl, IV Pepcid, IV acetaminophen, IV cefepime 2G ECG Additional Comments: ordered Code Status & VTE Plan Code Status full VTE Prophylaxis Plan VTE Prophylaxis will be ordered: Yes Supervising Physician Co-Signing Physician Notes Attending addendum: I have physically seen this patient, have supervised the CLINT's activities, and agree with the H&P unless as otherwise noted. Assessment and Plan: The patient is a 49-year-old female with past medical history including recurrent urinary tract infections, bipolar disorder, depression, asthma, sleep apnea, prediabetes and hypertension. Left nephrolithiasis/UTI/bilateral hydronephrosis/8 mm left ureteral calculus- Follow urine culture and sensitivity History of E. coli with multiple drug-resistant, which is which is susceptible to cefepime, will place on cefepime 2 g IV every [address] scan of abdomen pelvis showing bilateral hydronephrosis with 8 mm calculus in the left upper ureter Acetaminophen 1 g IV every 8 hours as needed for mild pain or fever Zofran 4 mg IV every 6 hours as needed Pain management as noted IV fluids as noted overnight Consult urology Hypertension/mild hypotension- Secondary to infection Hold lisinopril IV fluids as noted Chronic medical issues: Bipolar disorder/anxiety/depression continue usual medications hydroxyzine, lurasidone, melatonin, oxcarbazepine and topiramate Fibromyalgia/chronic pain syndrome- Temporarily hold Flexeril and gabapentin GERD changing to IV Protonix Asthma continue routine inhalers Hypothyroidism continue levothyroxine PG Care Time/CCT Total # of Minutes Spent Total Time Spent with Patient: Total time spent is greater than 50% in coordination of care (as documented) at patient's floor/unit and/or counseling patient: Coding Level of Care Code 06255 INT INP/OBS CARE 3/75MIN Diagnoses Kidney stone N20.0 Bilateral hydronephrosis N13.30 UTI (urinary tract infection) N39.0 Polycystic kidney disease Q61.3 Acute diarrhea R19.7 Prediabetes R73.03 Hypertension I10
[2024-05-02] MEDS: SODIUM CHLORIDE 0.9% 1,000 ML IV SCH (04:21)
[2024-05-02] MEDS ORDERED: GLUCOSE 40% GEL 15 GM TUBE PO PRN (06:38)
[2024-05-02] MEDS ORDERED: ALBUTEROL HFA 8 GM INHALER INH PRN (06:38)
[2024-05-02] MEDS ORDERED: GLUCAGON FOR INJ 1 MG VIAL SQ PRN (06:38)
[2024-05-02] MEDS ORDERED: CARBOHYDRATES FOR HYPOGLYCEMIA PO PRN (06:38)
[2024-05-02] MEDS ORDERED: GLUCOSE 10 TAB/TUBE PO PRN (06:38)
[2024-05-02] MEDS ORDERED: DEXTROSE 50% 50 ML SYRINGE IV PRN (06:38)
--- NOTE | 2024-05-02 07:34 | Electrocardiogram Report ---
Test Reason : Blood Pressure : */* mmHG Vent. Rate : 76 BPM Atrial Rate : 76 BPM P-R Int : 178 ms QRS Dur : 96 ms QT Int : 408 ms P-R-T Axes : 9 -43 33 degrees QTcB Int : 459 ms Normal sinus rhythm Left axis deviation Poor R wave progression, consider anterior MO vs. lead placement vs. LVH Abnormal ECG When compared with ECG of 01-Jan-2024 16:22, No significant change was found Confirmed by Sanchez Butts ([id number]) on 05/02/2024 7:34:20 AM Referred By: REFERRED SELF Confirmed By: Sanchez Butts
[2024-05-02] MEDS: INSULIN ASPART PER UNIT CHARGE SC SCH ×2 (08:11→21:07)
--- NOTE | 2024-05-02 09:11 | Urology Consultation ---
Date of Consultation May 02, 2024 Assessment & Plan (1) Ureterolithiasis: (2) Renal colic on left side: (3) Acute UTI: Plan Her current clinical picture is concerning for a left ureteral stone with UTI. In this setting I would recommend cystoscopy, left retrograde pyelogram and left ureteral stent placement. We discussed risks and benefits of the surgery including bleeding, infection, need for additional procedures, need for ureteral stent. She expressed understanding and would like to proceed. We also discussed the pain that she is having in the right flank. I think this is potentially a pyelonephritis. Since there is no focal obstruction I would hold off stenting on the right and continue treatment with antibiotics. For now, she will remain n.p.o., we will plan on left ureteral stent placement. Continue antibiotics and narrow coverage as culture data becomes available. History of Present Illness Reason for Consultation: Ureteral stone, UTI Attending Physician: Otis Etienne MD History of Present Illness This is a 49-year-old female with history of nephrolithiasis. She presented to the emergency department on 05/02/2024 with abdominal pain, bilateral flank pain. She had been having diarrhea, but this seemed to resolve. Workup in the ED was notable for normal WBC (9.39). His glucose was somewhat elevated at 114. Creatinine was 0.93. Urinalysis demonstrated cloudy urine, positive nitrites, 3+ leukocyte esterase and 4+ bacteria. She had a CT scan of the abdomen and pelvis. I independently reviewed these images. There is a stone at the left UPJ. I do not appreciate significant hydronephrosis, but visually looks like it could be obstructing. There is u rothelial enhancement/thickening of the right collecting system, but I do not appreciate any ureteral obstructions on the right side. Bladder appears grossly normal. Allergies Allergy/AdvReac Type Severity Reaction Status Date / Time bee venom protein (honey bee) Allergy Severe ANAPHYLAXIS Verified 05/02/24 04:33 tomato Allergy Intermediate Hives Verified 05/02/24 04:33 morphine AdvReac Intermediate HALLUCINATI Verified 05/02/24 04:33 ONS Home Medications Medication Instructions Recorded Confirmed Type fluticasone furoate 200 1 inh inhalation QAM 01/10/18 05/02/24 History mcg-vilanterol 25 mcg/dose inhalation powder (Breo Ellipta) fluticasone propionate 50 2 spray intranasal DAILY PRN 01/10/18 05/02/24 History mcg/actuation nasal Allergy Symptoms spray,suspension (Flonase Allergy Relief) rizatriptan 10 mg tablet (Maxalt) 10 mg PO UD PRN Migraine Headache 01/10/18 05/02/24 History Lactobacillus comb 1 cap PO QAM 10/14/18 05/02/24 History no.[id number] 300 million cell-250 mg capsule (Probiotic and Acidophilus) magnesium oxide 400 mg PO QAM 04/07/19 05/02/24 History ondansetron 4 mg disintegrating 4 mg PO Q8H PRN Nausea 08/08/19 05/02/24 History tablet cyanocobalamin (vitamin B-12) 1,000 mcg PO QAM 02/14/20 05/02/24 History 1,000 mcg tablet (Vitamin B-12) vitamin B complex 1 tab PO QAM 02/22/22 05/02/24 History sennosides 8.6 mg tablet (Senokot) 17.2 mg (2 x 8.6 mg) PO QAM PRN 02/27/22 05/02/24 Rx constipation #30 tabs albuterol sulfate 90 mcg/actuation 1 inh inhalation QID PRN Wheezing 03/26/22 05/02/24 History aerosol inhaler (ProAir HFA) albuterol sulfate 2.5 mg/3 mL 2.5 mg continuous nebulization Q4H 03/28/22 05/02/24 History (0.083 %) solution for nebulization PRN Shortness Of Breath Or Wheezing cholecalciferol (vitamin D3) 125 5,000 unit PO DAILY 07/12/22 05/02/24 History mcg (5,000 unit) capsule cranberry 500 mg capsule 125 mg PO QAM 08/23/22 05/02/24 History topiramate 200 mg tablet (Topamax) 200 mg PO BID #180 tabs 09/20/22 05/02/24 Rx docusate sodium 100 mg capsule 100 mg PO DAILY 02/08/23 05/02/24 History lisinopril 5 mg tablet 5 mg PO QAM #100 tabs 04/30/23 05/02/24 Rx cetirizine 10 mg tablet (Zyrtec) 10 mg PO DAILY #90 tabs 07/15/23 05/02/24 Rx pantoprazole 40 mg tablet,delayed 40 mg PO QAM #90 tabs 07/15/23 05/02/24 Rx release (Protonix) cyclobenzaprine 10 mg tablet 10 mg PO BID #180 tabs 09/30/23 05/02/24 Rx hydroxyzine HCl 50 mg tablet 100 mg (2 x 50 mg) PO HS 90 days 12/26/23 05/02/24 Rx #180 tabs levothyroxine 50 mcg tablet 50 mcg PO QAM #90 tabs 12/26/23 05/02/24 Rx meloxicam 7.5 mg tablet 15 mg (2 x 7.5 mg) PO DAILY PAIN 12/26/23 05/02/24 Rx #90 tabs cyclosporine 0.05 drp BID 01/01/24 05/02/24 History erythromycin 5 mg/gram (0.5 %) eye 1 applic ophthalmic (eye) DAILY 01/01/24 05/02/24 History ointment lidocaine 4 % topical patch 1 patch topical DAILY PRN Pain 01/01/24 05/02/24 History melatonin 3 mg tablet 6 mg PO PM 01/01/24 05/02/24 History lurasidone 20 mg tablet (Latuda) 20 mg PO DAILY #30 tabs 01/20/24 05/02/24 Rx oxcarbazepine 300 mg tablet 450 mg PO BID 01/20/24 05/02/24 History (Trileptal) epinephrine 0.3 mg/0.3 mL 0.3 mg (0.3 mL) IM DIRECTED PRN 01/24/24 05/02/24 Rx injection, auto-injector (EpiPen) Severe Allergic Reaction #2 ea famotidine 20 mg tablet 20 mg PO DAILY #90 tabs 01/31/24 05/02/24 Rx metformin 500 mg tablet,extended 500 mg PO QPM #100 tabs 02/14/24 05/02/24 Rx release 24 hr dicyclomine 20 mg tablet 20 mg PO BID 3 months #180 tabs 02/28/24 05/02/24 Rx gabapentin 800 mg tablet 800 mg PO TID #90 tabs 04/09/24 05/02/24 Rx Patient History Medical History Small fiber neuropathy Bipolar 2 disorder History of anemia as a child Hx of Clostridium difficile infection History of COVID-19 Suicidal ideation Right flank pain Pyelonephritis Hx of sepsis Hydronephrosis due to obstruction of ureter Right ureteral calculus Complicated bereavement Depression with suicidal ideation Recurrent UTI Chest pain Poor historian Hx of prolonged Q-T interval on ECG Fibroadenoma of breast Sleep apnea Asthma Closed head injury E. coli septicemia Surgical History S/P cystoscopy with ureteral stent placement History of esophagogastroduodenoscopy (EGD) Status post labral repair of shoulder History of breast biopsy H/O lithotripsy History of cystoscopy Hx of shoulder surgery Hx of colonoscopy Hx of knee surgery History of ankle surgery Hx of cholecystectomy Family History Father Heart disease Other No significant family history Social History Smoking Status: Never smoker Second Hand Exposure: No; Do You Dip or Chew Tobacco: No; Hx Alcohol Use: No Hx Substance Use: No Preferred Language: Slovenian Communication Ability: Effective Visual Impairment: Limited Hearing Ability: Use of Hearing Aid Assistant Drafter Required: No Beliefs That Will Affect Care: None marital status: Single Current Living Situation: Parent Current Living Situation Comment: lives w/ mom. disabled. no drivers license current occupational status: disabled How many Children do You have: 0 Feels Safe at Home: Yes Childhood Exposure to Second-Hand Smoke: No Diet: regular caffeine: Yes during the past year weight has: remained stable Dental Care, Regularly: Yes Physical Activity Frequency: Daily Seatbelt Use: always Sunscreen Use: Yes Gender Identity: Female Assistive Devices: Glasses and Hearing Aid - Bilateral Review of Systems Review of Systems: 12 point review of systems negative exce pt for otherwise indicated. Physical Exam Constitutional: well developed and well nourished; no acute distress Eyes: + anicteric sclerae; pupils not irregula r Respiratory: normal respiratory effort; no respiratory distress, does not use accessory muscles and no cough Cardiovascular: well perfused Gastrointestinal (Abdomen): Inspection/Auscultation: abdomen normal to inspection; abdomen not distended Musculoskeletal: Extremities: extremities normal to inspection Skin: normal turgor; no rashes and no lesions Neurologic: moves all extremities and awake Psychiatric: Orientation: alert and oriented x 3 Results & Data Vital Signs (Past 12 Hours) Vital Signs Temp Pulse Pulse Resp BP BP Pulse Ox 05/02/24 07:12 75 05/02/24 06:42 78 20 120/77 98 05/02/24 06:39 05/02/24 06:06 79 20 112/75 97 05/02/24 04:57 76 20 115/77 97 05/02/24 04:11 85 05/02/24 04:07 83 20 102/67 97 05/02/24 03:36 79 18 05/02/24 03:30 94/66 L 05/02/24 03:30 94/66 L 05/02/24 03:00 124/71 05/02/24 02:57 79 13 95 05/02/24 02:30 84 18 124/79 93 05/02/24 02:00 83 13 115/81 95 05/02/24 01:30 78 13 104/78 96 05/02/24 01:00 86 20 122/82 93 05/02/24 00:30 81 18 114/73 96 05/02/24 00:00 92 H 20 110/66 95 05/01/24 23:27 88 05/01/24 23:22 36.7 C 89 20 117/72 96 05/01/24 22:56 96 O2 Del Method 05/02/24 07:12 05/02/24 06:42 Room Air 05/02/24 06:39 Room Air 05/02/24 06:06 Room Air 05/02/24 04:57 Room Air 05/02/24 04:11 05/02/24 04:07 Room Air 05/02/24 03:36 05/02/24 03:30 05/02/24 03:30 05/02/24 03:00 05/02/24 02:57 05/02/24 02:30 05/02/24 02:00 05/02/24 01:30 05/02/24 01:00 05/02/24 00:30 05/02/24 00:00 05/01/24 23:27 05/01/24 23:22 Room Air 05/01/24 22:56 Room Air PG Care Time/CCT Total # of Minutes Spent Total Time Spent with Patient: Total time spent is greater than 50% in coordination of care (as documented) at patient's floor/unit and/or counseling patient: Coding Level of Care Code 79642 OFFICE CONSULT LVL Diagnoses Ureterolithiasis N20.1 Renal colic on left side N23 Acute UTI N39.0
--- NOTE | 2024-05-02 09:26 | Anesthesiology Consultation ---
Date of Service May 02, 2024 Assessment & Plan (1) Encounter for pre-operative examination: Chart Review Chart Review: Acceptable Risk for Surgery History Surgery Operation Date: 05/02/24 13:00 Proposed Procedures p Cystoscopy, Left Ureteral Stent Insertion - Bud Fernandez MD Height/Weight Height: 5 ft 3 in Weight: 95.9 kg Allergies Allergy/AdvReac Type Severity Reaction Status Date / Time bee venom protein (honey bee) Allergy Severe ANAPHYLAXIS Verified 05/02/24 04:33 tomato Allergy Intermediate Hives Verified 05/02/24 04:33 morphine AdvReac Intermediate HALLUCINATI Verified 05/02/24 04:33 ONS Medications Home Medications Medication Instructions Recorded Confirmed Last Taken fluticasone furoate 200 1 inh inhalation QAM 01/10/18 05/02/24 05/01/24 mcg-vilanterol 25 mcg/dose inhalation powder (Breo Ellipta) fluticasone propionate 50 2 spray intranasal DAILY PRN 01/10/18 05/02/24 05/01/24 mcg/actuation nasal Allergy Symptoms spray,suspension (Flonase Allergy Relief) rizatriptan 10 mg tablet (Maxalt) 10 mg PO UD PRN Migraine Headache 01/10/18 05/02/24 05/01/24 Lactobacillus comb 1 cap PO QAM 10/14/18 05/02/24 05/01/24 no.[id number] 300 million cell-250 mg capsule (Probiotic and Acidophilus) magnesium oxide 400 mg PO QAM 04/07/19 05/02/24 05/01/24 ondansetron 4 mg disintegrating 4 mg PO Q8H PRN Nausea 08/08/19 05/02/24 03/15/23 tablet cyanocobalamin (vitamin B-12) 1,000 mcg PO QAM 02/14/20 05/02/24 05/01/24 1,000 mcg tablet (Vitamin B-12) vitamin B complex 1 tab PO QAM 02/22/22 05/02/24 05/01/24 sennosides 8.6 mg tablet (Senokot) 17.2 mg (2 x 8.6 mg) PO QAM PRN 02/27/22 05/02/24 05/01/24 constipation #30 tabs albuterol sulfate 90 mcg/actuation 1 inh inhalation QID PRN Wheezing 03/26/22 05/02/24 05/01/24 aerosol inhaler (ProAir HFA) albuterol sulfate 2.5 mg/3 mL 2.5 mg continuous nebulization Q4H 03/28/22 05/02/24 05/01/24 (0.083 %) solution for nebulization PRN Shortness Of Breath Or Wheezing cholecalciferol (vitamin D3) 125 5,000 unit PO DAILY 07/12/22 05/02/24 05/01/24 mcg (5,000 unit) capsule cranberry 500 mg capsule 125 mg PO QAM 08/23/22 05/02/24 05/01/24 topiramate 200 mg tablet (Topamax) 200 mg PO BID #180 tabs 09/20/22 05/02/24 05/01/24 docusate sodium 100 mg capsule 100 mg PO DAILY 02/08/23 05/02/24 05/01/24 lisinopril 5 mg tablet 5 mg PO QAM #100 tabs 04/30/23 05/02/24 05/01/24 cetirizine 10 mg tablet (Zyrtec) 10 mg PO DAILY #90 tabs 07/15/23 05/02/24 05/01/24 pantoprazole 40 mg tablet,delayed 40 mg PO QAM #90 tabs 07/15/23 05/02/24 05/01/24 release (Protonix) cyclobenzaprine 10 mg tablet 10 mg PO BID #180 tabs 09/30/23 05/02/24 05/01/24 hydroxyzine HCl 50 mg tablet 100 mg (2 x 50 mg) PO HS 90 days 12/26/23 05/02/24 05/01/24 #180 tabs levothyroxine 50 mcg tablet 50 mcg PO QAM #90 tabs 12/26/23 05/02/24 05/01/24 meloxicam 7.5 mg tablet 15 mg (2 x 7.5 mg) PO DAILY PAIN 12/26/23 05/02/24 05/01/24 #90 tabs cyclosporine 0.05 drp BID 01/01/24 05/02/24 05/01/24 erythromycin 5 mg/gram (0.5 %) eye 1 applic ophthalmic (eye) DAILY 01/01/24 05/02/24 05/01/24 ointment lidocaine 4 % topical patch 1 patch topical DAILY PRN Pain 01/01/24 05/02/24 05/01/24 melatonin 3 mg tablet 6 mg PO PM 01/01/24 05/02/24 05/01/24 lurasidone 20 mg tablet (Latuda) 20 mg PO DAILY #30 tabs 01/20/24 05/02/24 05/01/24 oxcarbazepine 300 mg tablet 450 mg PO BID 01/20/24 05/02/24 05/01/24 (Trileptal) epinephrine 0.3 mg/0.3 mL 0.3 mg (0.3 mL) IM DIRECTED PRN 01/24/24 05/02/24 Unknown injection, auto-injector (EpiPen) Severe Allergic Reaction #2 ea famotidine 20 mg tablet 20 mg PO DAILY #90 tabs 01/31/24 05/02/24 05/01/24 metformin 500 mg tablet,extended 500 mg PO QPM #100 tabs 02/14/24 05/02/24 05/01/24 release 24 hr dicyclomine 20 mg tablet 20 mg PO BID 3 months #180 tabs 02/28/24 05/02/24 05/01/24 gabapentin 800 mg tablet 800 mg PO TID #90 tabs 04/09/24 05/02/24 05/01/24 Active Medications Generic Name Dose Route Start Last Admin Trade Name Freq PRN Reason Stop Dose Admin Sodium Chloride 1,000 mls @ 125 mls/hr 05/02/24 04:00 05/02/24 04:21 Nss IV 05/03/24 03:59 125 mls/hr .Q8H VALERI Administration Insulin Aspart 0 units 05/02/24 07:00 05/02/24 08:11 Insulin Aspart Per Unit Charge SC 06/01/24 06:59 Not Given Q6 VALERI Past Medical History Medical History Small fiber neuropathy Bipolar 2 disorder History of anemia as a child Hx of Clostridium difficile infection end of 2021, tx w/abx. History of COVID-19 07/25/20>not hospitalized>"mild">resolved Suicidal ideation patient denies current or active SI/plan Right flank pain ongoing Pyelonephritis Hx of sepsis hospitalized at [facility] Feb 2022 for this > resolved per pt Hydronephrosis due to obstruction of ureter Right ureteral calculus Complicated bereavement Depression with suicidal ideation patient denies current or active SI/plan Recurrent UTI Chest pain "not recently"; follows with [facility] cardio records, atypical, attributed to GI etiology and anxiety Poor historian Hx of prolonged Q-T interval on ECG PER PT'S MEDICAL RECORD FROM PCP OFFICE. Fibroadenoma of breast RT Sleep apnea NO CPAP Asthma USES PRN INH APPROX 1-2 X MONTHLY; DENIES RECENT EXAC Closed head injury R/T FALL IN 2017; REPORTS CONCUSSION>"still gets very tired in the afternoon" E. coli septicemia hx Past Family History Family History Father Heart disease Other No significant family history Past Surgical History Surgical History S/P cystoscopy with ureteral stent placement w/laser destruction kidney stone History of esophagogastroduodenoscopy (EGD) Status post labral repair of shoulder RT History of breast biopsy RT H/O lithotripsy History of cystoscopy Hx of shoulder surgery Hx of colonoscopy Hx of knee surgery RT History of ankle surgery RT Hx of cholecystectomy Social History Smoking Status: Never smoker Do You Dip or Chew Tobacco: No Hx Alcohol Use: No Hx Substance Use: No substance use type: does not use Physical Exam Vital Signs Last Vital Signs Temp 36.7 C 05/01/24 23:22 Pulse 75 05/02/24 07:12 Resp 20 05/02/24 06:42 BP 120/77 05/02/24 06:42 Pulse Ox 98 05/02/24 06:42 O2 Del Method Room Air 05/02/24 06:42 Testing Laboratory Results 05/01/24 23:00 05/01/24 23:00 Urine Color Yellow 05/01/24 23:00 Urine Appearance Cloudy (Clear) A 05/01/24 23:00 Urine pH 6.0 (4.5-7.5) 05/01/24 23:00 Ur Specific Hagerman 1.021 (1.000-1.030) 05/01/24 23:00 Urine Protein 1+ (Negative) H 05/01/24 23:00 Urine Glucose (UA) Negative (Negative) 05/01/24 23:00 Urine Ketones Trace (Negative) H 05/01/24 23:00 Urine Nitrite Positive (Negative) A 05/01/24 23:00 Ur Leukocyte Esterase 3+ (Negative) H 05/01/24 23:00 Urine WBC (Auto) >50 /hpf (0-5) H 05/01/24 23:00 Urine RBC (Auto) 0-2 /hpf (0-2) 05/01/24 23:00 U Hyaline Cast (Auto) 0-2 /lpf (0-2) 05/01/24 23:00 U Epithel Cells (Auto) 6-10 /hpf (0-2) H 05/01/24 23:00 Urine Bacteria (Auto) 4+ (None Seen) H 05/01/24 23:00 05/02/24 06:44 POC Glucose 114 H Electrocardiogram Date: 05/02/24 Findings: + NSR @ (76) and + poor R wave progression
[2024-05-02] MEDS: OXcarbazepine 150 MG TABLET PO SCH (10:11)
[2024-05-02] MEDS: PANTOprazole 40 MG/10 ML SYR IV SCH (10:11)
[2024-05-02] MEDS: CEFEPIME 2000MG 2,000 MG/20 ML SYR IV SCH (10:11)
[2024-05-02] MEDS: TOPIRAMATE 100 MG TAB PO SCH (10:12)
[2024-05-02] MEDS: LEVOTHYROXINE SODIUM 50 MCG TABLET PO SCH (10:12)
[2024-05-02] MEDS: LURASIDONE HCL 20 MG TAB PO SCH (10:12)
[2024-05-02] MEDS: FLUTICASONE/VILANTEROL 200/25MCG 14 PUFFS/INHALER INH SCH (12:05)
[2024-05-02] MEDS: DAPTOmycin 425 MG in SYRINGE 0 ML IV SCH (12:06)
[2024-05-02] MEDS ORDERED: LIDOCAINE 2% 2 ML VIAL/AMP(20MG/ML) INFIL ONE (14:53)
[2024-05-02] MEDS ORDERED: MIDAZOLAM HCL 1 MG/ML 2ML VIAL ONE (14:53)
[2024-05-02] MEDS ORDERED: PROPOFOL IV EMULSION 10 MG/ML 20 ML VIAL IV ONE (14:53)
[2024-05-02] MEDS ORDERED: fentaNYL citrate PF 100 MCG/2 ML VIAL ONE (14:54)
[2024-05-02] MEDS ORDERED: ATROPINE SULFATE 0.1 MG/ML 10ML SYR IV PRN (15:44)
[2024-05-02] MEDS ORDERED: KETAMINE HCL 10MG/ML SYR ONE ×2 (15:54→16:05)
--- NOTE | 2024-05-02 16:26 | Operative Report ---
[facility] Post Operative Report Pre & Post Diagnosis Operation Date: 05/02/24 13:00 Pre-Op Diagnosis: (1) Ureterolithiasis (2) Renal colic on left side (3) Acute urinary tract infection Post-Op Diagnosis: (1) Ureterolithiasis (2) Renal colic on left side (3) Acute urinary tract infection I identified the patient and participated in the time-out.: Yes Procedure Operation Date: 05/02/24 13:00 Actual Procedures p Cystoscopy, Left Ureteral Stent Insertion(Left) - Bud Fernandez MD Surgeon Bud Fernandez MD Jewelry Sales None Estimated Blood Loss 0 Findings Consistent with Post-Op Diagnosis Specimens None Drains 6 Cymro by 24 cm double-J ureteral stent in the left ureter Anesthesia Type MAC Complications none Disposition Accompanied Patient To Recovery: Yes Disposition: Recovery Room Indications This is a 49-year-old female found to have a left ureteral stone with concern for UTI. She is brought to the OR for left ureteral stent placement. Description of Procedure The patient was identified in the holding area and informed consent was confirmed. She was marked on the left side, then was taken to the operating room where anesthesia was initiated. She was placed in the dorsal lithotomy position with all pressure points appropriately padded. She was prepped and draped in the usual sterile fashion and a preoperative timeout was performed. A well-lubricated cystoscope was inserted per urethra and panendoscopy was performed. The urethra was normal in appearance. The bladder was of normal size with ureteral orifices in orthotopic position. The left ureteral orifice was identified and cannulated with a 5 Cymro open- ended catheter. A retrograde pyelogram was performed demonstrating the distal ureter was normal in character and caliber. There was mild hydronephrosis of the kidney. A 0.038" ZIPwire was advanced to the level of the kidney under fluoroscopic guidance. Over the wire, a 6 Cymro x 24 centimeter double-J ureteral stent was advanced. When the wire was removed, the proximal curl was visualized in the kidney with x-ray, and the distal curl visualized in the bladder with the cystoscope. At this point the bladder was drained and all instrumentation was removed. The patient was then awakened from anesthesia and was brought to the PACU in stable condition. I attest to the content of the Intraoperative Record and any orders documented therein. Any exceptions are noted below.
[2024-05-02] MEDS: DIATRIZOATE MEGLUMINE 30% 100ML VIAL INSTIL ONE (16:30)
[2024-05-02] MEDS: PROMETHAZINE HCL 6.25 MG in SODIUM CHLORIDE 0.9% 50 ML IV PRN (16:35)
[2024-05-02] MEDS: fentaNYL citrate PF 100 MCG/2 ML VIAL IV PRN (16:47)
[2024-05-02] MEDS: PROMETHAZINE HCL INJ 25 MG/ML 1 ML VIAL ONE (17:03)
--- NOTE | 2024-05-02 18:37 | Anesthesiology Progress Note ---
Date of Service May 02, 2024 Anesthesia Post Procedure Vital Signs Vital Signs: Temp Pulse Pulse Pulse Resp BP BP 05/02/24 17:30 36.8 C 76 16 146/85 H 05/02/24 17:05 36.8 C 80 14 129/86 05/02/24 16:55 75 17 137/92 05/02/24 16:45 79 17 126/97 05/02/24 16:35 81 18 129/90 05/02/24 16:27 36.2 C L 86 19 129/85 05/02/24 13:03 82 16 122/75 05/02/24 12:18 85 17 114/76 05/02/24 11:00 79 18 111/70 05/02/24 10:00 77 16 118/78 05/02/24 09:00 81 20 121/68 05/02/24 08:03 81 12 121/78 05/02/24 07:12 75 05/02/24 07:00 73 12 118/85 05/02/24 06:42 78 20 120/77 05/02/24 06:39 05/02/24 06:06 79 20 112/75 05/02/24 04:57 76 20 115/77 05/02/24 04:11 85 05/02/24 04:07 83 20 102/67 05/02/24 03:36 79 18 05/02/24 03:30 94/66 L 05/02/24 03:30 94/66 L 05/02/24 03:00 124/71 05/02/24 02:57 79 13 05/02/24 02:30 84 18 124/79 05/02/24 02:00 83 13 115/81 05/02/24 01:30 78 13 104/78 05/02/24 01:00 86 20 122/82 05/02/24 00:30 81 18 114/73 05/02/24 00:00 92 H 20 110/66 05/01/24 23:27 88 05/01/24 23:22 36.7 C 89 20 117/72 05/01/24 22:56 Pulse Ox O2 Del Method O2 Flow Rate 05/02/24 17:30 96 Room Air 05/02/24 17:05 95 Room Air 05/02/24 16:55 99 Oxymask 3 05/02/24 16:45 100 Oxymask 6 05/02/24 16:35 100 Oxymask 8 05/02/24 16:27 100 Oxymask 8 05/02/24 13:03 94 Room Air 05/02/24 12:18 95 Room Air 05/02/24 11:00 96 Room Air 05/02/24 10:00 95 Room Air 05/02/24 09:00 97 Room Air 05/02/24 08:03 94 Room Air 05/02/24 07:12 05/02/24 07:00 98 Room Air 05/02/24 06:42 98 Room Air 05/02/24 06:39 Room Air 05/02/24 06:06 97 Room Air 05/02/24 04:57 97 Room Air 05/02/24 04:11 05/02/24 04:07 97 Room Air 05/02/24 03:36 05/02/24 03:30 05/02/24 03:30 05/02/24 03:00 05/02/24 02:57 95 05/02/24 02:30 93 05/02/24 02:00 95 05/02/24 01:30 96 05/02/24 01:00 93 05/02/24 00:30 96 05/02/24 00:00 95 05/01/24 23:27 05/01/24 23:22 96 Room Air 05/01/24 22:56 96 Room Air Pain Intensity Right Abdomen: Pain Intensity: 9 Abdomen: Pain Intensity: 2 Bilateral Flank: Pain Intensity: 3 Transfer of Care Handoff Completed per policy Notes Mental Status: alert / awake / arousable Patient Amnestic to Procedure: Yes Nausea / Vomiting: adequately controlled Pain: adequately controlled Airway Patency, RR, SpO2: stable & adequate BP & HR: stable & adequate Hydration State: stable & adequate Anesthetic Complications: no major complications apparent
[2024-05-02] MEDS: ACETAMINOPHEN 1,000 MG/100 ML VIAL IV PRN (19:32)
[2024-05-02] MEDS: ONDANSETRON INJ 2 MG/ML 2 ML VIAL IV PRN (19:33)
--- NOTE | 2024-05-02 19:53 | Hospitalist Progress Note ---
Date of Service May 02, 2024 Assessment & Plan (1) Ureterolithiasis: Plan: 8mm proximal left-sided ureteral stone s/p cystoscopy with left ureteral stent placement by Dr Fernandez appreciate his assistance allow diet pain meds prn add flomax add oxybutinin/pyridium as needed IV fluids IV abx for #2 patient on chronic topamax - need for d/c?? will d/w Dr Fernandez (2) Acute UTI: Plan: cont IV cefepime added IV dapto - previous urine cx with enterococcus follow cx (3) Bilateral hydronephrosis: Plan: left-sided is 2nd to #1 however, has b/l hydro - chronic ureteral urine reflux? other? (4) Prediabetes: Plan: a1c 5.5% in 02/2024 (5) RAJEEV (obstructive sleep apnea): (6) Asthma: Plan: no flare at this time (7) Bipolar 2 disorder, major depressive episode: Plan: cont home meds (8) Hypothyroidism: Plan: TSH 02/2024 wnl cont synthroid (9) GERD (gastroesophageal reflux disease): Plan: cont PPI Admission and Anticipated Discharge Date Admission Date: May 02, 2024 Subjective saw patient post-cysto was resting comfortably reported mild abd discomfort but she was hungry no vomiting since returning from the cysto and stent placement Physical Exam Physical Exam: gen - obese, NAD, nontoxic mouth - MMM neck - no JVD heart - RRR, s1 s2, no murmur lungs - CTA b/l abd - soft, ND, BS+, minimally tender central abdomen ext - no edema, pulses 2+ b/l feet, SCDs in place Results & Data Results & Data Vital Signs (Past 12 Hours) Vital Signs Temp Pulse Pulse Pulse Resp BP BP 05/02/24 19:47 36.9 C 82 12 122/79 05/02/24 17:30 36.8 C 76 16 146/85 H 05/02/24 17:05 36.8 C 80 14 129/86 05/02/24 16:55 75 17 137/92 05/02/24 16:45 79 17 126/97 05/02/24 16:35 81 18 129/90 05/02/24 16:27 36.2 C L 86 19 129/85 05/02/24 13:03 82 16 122/75 05/02/24 12:18 85 17 114/76 05/02/24 11:00 79 18 111/70 05/02/24 10:00 77 16 118/78 05/02/24 09:00 81 20 121/68 05/02/24 08:03 81 12 121/78 Pulse Ox O2 Del Method O2 Flow Rate 05/02/24 19:47 95 Room Air 05/02/24 17:30 96 Room Air 05/02/24 17:05 95 Room Air 05/02/24 16:55 99 Oxymask 3 05/02/24 16:45 100 Oxymask 6 05/02/24 16:35 100 Oxymask 8 05/02/24 16:27 100 Oxymask 8 05/02/24 13:03 94 Room Air 05/02/24 12:18 95 Room Air 05/02/24 11:00 96 Room Air 05/02/24 10:00 95 Room Air 05/02/24 09:00 97 Room Air 05/02/24 08:03 94 Room Air Laboratory Results Laboratory Results - last 24 hr 05/02/24 05/02/24 05/02/24 06:44 12:16 16:45 POC Glucose 114 H 106 H 79 05/02/24 18:09 POC Glucose 88 Diagnostic Findings Abdomen/Pelvis CT 05/01/24 22:38 EXAM: CT abd pelvis IV con only CLINICAL HISTORY: lower abd pain 94 ml opti 320 GS/PW TECHNIQUE: CT of the abdomen and pelvis was performed with contrast, with the following protocol: axial images with, and reconstructed coronal and sagittal images. One of the following dose reduction techniques was utilized for this exam: Automated exposure control, adjustment of the mA and/or kV according to patient size, and use of iterative reconstruction. COMPARISON: Comparison is made with prior scan dated 06/03/2021. FINDINGS: Abdomen: Liver: Normal in size, shape, and density. No focal lesions, cysts, or masses were identified. Hepatic vasculature and biliary ducts are unremarkable. Gallbladder and Biliary System: The gallbladder is post operative status. The common bile duct is normal in caliber without dilation. Pancreas: Pancreatic head, body, and tail are visualized and appear normal in size and density. No pancreatic masses or calcifications were noted. The pancreatic duct is not dilated. Spleen: Normal in size, shape, and density. No splenic lesions or masses were identified. Appendix: The appendix is normal in size without dewayne appendiceal fat stranding, and with a small appendicolith. No evidence of appendiceal abscess or perforation. Kidneys and Adrenal Glands: Both kidneys are normal in size, shape, and position with few small renal cortical cysts and scars; largest cyst in left kidney at lower pole measures~9x10mm showing focal calcification. Mild bilateral hydronephrosis with a 8mm calculus seen in left upper ureter. No obvious calculus is seen in right ureter. A [id number] sized hypoenhancing lesion is seen in right adrenal gland and similar [id number] sized lesion in left adrenal gland in its medial limb likely adenoma. Pelvis: Urinary Bladder: Normal in contour and wall thickness. No intraluminal lesions identified. Uterus: Normal in size and contour. No masses or abnormal thickening. Ovaries: Not well visualized but no gross abnormalities noted. Vagina: Normal in contour and wall thickness. A [id number] sized non enhancing cyst is seen in inferior aspect of vaginal wall below the level of pubic symphyses. Cervix: No evidence of mass or abnormal thickening. Peritoneal and Retroperitoneal Structures: No free fluid or abnormal fluid collections were identified within the abdomen or pelvis. No lymphadenopathy was noted. Bowel: The visualized bowel loops are normal in caliber and appearance. No evidence of bowel obstruction or wall thickening. Note is made of small umbilical hernia with defect of 15mm and few small paraumbilical hernias. Bones and Soft Tissues: Pelvic bones and soft tissues are unremarkable. No fractures or abnormal masses were identified. IMPRESSION: 1. Bilateral renal cortical cysts and scars with a Type II calcified cyst in left kidney. Stable since last scan. 2. Mild bilateral hydronephrosis with a 8mm calculus in left upper ureter. This calculus was not seen in prior scan. 3. Stable hypoenhancing lesions in bilateral adrenal glands likely adenomas. 3. Stable small umbilical hernia with defect of 15mm and few small paraumbilical hernias. 4. A [id number] sized non enhancing cyst is seen in inferior aspect of vaginal wall below the level of pubic symphyses suggestive of bartholin's cyst. Mild increase in size of cyst as compared to prior scan. Electronically signed by Donato Spicer 05-02-2024 02:57 AM PG Care Time/CCT Total # of Minutes Spent Total Time Spent with Patient: Total time spent is greater than 50% in coordination of care (as documented) at patient's floor/unit and/or counseling patient: Coding Level of Care Code None Diagnoses Ureterolithiasis N20.1 Acute UTI N39.0 Bilateral hydronephrosis N13.30 Prediabetes R73.03 RAJEEV (obstructive sleep apnea) G47.33 Asthma J45.909 Bipolar 2 disorder, major depressive episode F31.81 Hypothyroidism E03.9 GERD (gastroesophageal reflux disease) K21.9
[2024-05-02] MEDS: MELATONIN 3 MG TAB PO SCH (20:24)
[2024-05-02] MEDS: hydrOXYzine HCl 25 MG TAB PO SCH (20:24)
[2024-05-02] MEDS ORDERED: Nursing to Pharmacy Communication SCH (20:45)
[2024-05-02] MEDS: CYCLOBENZAPRINE HCL 10 MG TAB PO SCH (21:17)
[2024-05-02] MEDS: DICYCLOMINE HCL 20 MG TAB PO SCH (21:17)
[2024-05-02] MEDS: MELOXICAM 7.5 MG TAB PO SCH (21:44)
[2024-05-02] MEDS: GABAPENTIN 800 MG TAB PO SCH (21:44)
[2024-05-03] MEDS: SODIUM CHLORIDE 0.9% 1,000 ML IV SCH (03:45)
[2024-05-03 07:48] LABS: Basophils # (auto) 0.08 K/uL (0.00-0.20); Basophils % (auto) 0.9 %; Eosinophils # (auto) 0.25 K/uL (0.00-0.50); Eosinophils % (auto) 2.8 %; Hemoglobin 12.5 g/dl (12.0-16.0); Immature Granulocytes # (auto) 0.05 K/uL (0.01-0.20); Immature Granulocytes % (auto) 0.6 %; Lymphocytes # (auto) 2.47 K/uL (1.20-3.40); Lymphocytes % (auto) 27.2 %; Mean Corpuscular Hemoglobin 30.5 pg (25.0-34.0); Mean Corpuscular Hgb Conc 33.8 g/dL (32.0-36.0); Mean Corpuscular Volume 90.2 fL (80.0-100.0); Mean Platelet Volume 8.9 fL (9.4-12.4); Monocytes # (auto) 0.68 K/uL (0.11-0.59); Monocytes % (auto) 7.5 %; Neutrophils # (auto) 5.54 K/uL (1.40-6.50); Platelet Count 290 K/uL (130-400); RDW Coefficient of Variation 12.7 % (11.5-14.5); RDW Standard Deviation 41.8 fL (36.4-46.3); White Blood Count 9.07 K/ul (4.8-10.8)
[2024-05-03 07:57] LABS: BUN Creatinine Ratio 19.7 (10-20); Calcium 8.7 mg/dl (8.6-10.3); Creatinine Clr Calc Pharmacy 103.3 ml/min; Magnesium 1.9 mg/dl (1.7-2.4)
[2024-05-03] MEDS: TAMSULOSIN HCL 0.4 MG CAP PO SCH (08:41)
[2024-05-03] MEDS: PANTOprazole 40 MG TAB PO SCH (08:41)
[2024-05-03] MEDS ORDERED: MELOXICAM 7.5 MG TAB PO SCH (09:00)
--- NOTE | 2024-05-03 10:10 | Urology Progress Note ---
Date of Service May 03, 2024 Assessment & Plan (1) Acute UTI: (2) Ureterolithiasis: Plan recovering appropriately s/p cystoscopy and left stent placement Should have adequate source control with stent in place Continue antibiotics, narrow coverage as culture data becomes available No plan for further urologic intervention while inpatient, we will coordinate outpatient follow-up and definitive stone removal. Urology will sign off for now, please call with any questions or concerns. Admission and Anticipated Discharge Date Admission Date: May 02, 2024 Subjective 49-year-old female s/p cystoscopy and stent placement on 05/02/2024. Feeling well today Having a little bit of pressure from the stent. No fevers or chills overnight Physical Exam Physical Exam: Well-appearing, NAD Results & Data Vital Signs (Past 12 Hours) Vital Signs Temp Pulse Resp BP Pulse Ox O2 Del Method 05/03/24 07:37 36.5 C 62 18 114/68 97 Room Air PG Care Time/CCT Total # of Minutes Spent Total Time Spent with Patient: Total time spent is greater than 50% in coordination of care (as documented) at patient's floor/unit and/or counseling patient: Coding Level of Care Code 45474 SUB INP/OBS CARE 05/09MIN Diagnoses Acute UTI N39.0 Ureterolithiasis N20.1
--- NOTE | 2024-05-03 15:49 | Hospitalist Progress Note ---
Date of Service May 03, 2024 Assessment & Plan (1) Ureterolithiasis: Plan: POD #1 s/p cystoscopy with left ureteral stent placement by Dr Fernandez for 8mm proximal left-sided ureteral stone appreciate his assistance doing well from urology standpoint pain meds prn cont flomax cont oxybutinin/pyridium as needed can stop IV fluids IV abx for #2 patient on chronic topamax - need for discontinuation?? will d/w urology (2) Acute UTI: Plan: 2nd to e.coli cont IV cefepime stop IV dapto previous urine cx's with e.coli with MDR thus will keep hospitalized until urine cx is final (3) Bilateral hydronephrosis: Plan: left-sided is 2nd to #1 however, has b/l hydro - chronic ureteral urine reflux? other? defer work-up/Rx to urology (4) Prediabetes: Plan: a1c 5.5% in 02/2024 (5) RAJEEV (obstructive sleep apnea): (6) Asthma: Plan: no flare at this time lungs clear on exam; o2 sats wnl in RA (7) Bipolar 2 disorder, major depressive episode: Plan: cont home meds (8) Hypothyroidism: Plan: TSH 02/2024 wnl cont synthroid (9) GERD (gastroesophageal reflux disease): Plan: cont PPI Plan anticipate d/c home tomorrow Admission and Anticipated Discharge Date Admission Date: May 02, 2024 Subjective patient with mild stent pain but no nausea/emesis passing flatus ambulating w/o dizziness no dyspnea some bladder pain at times Review of Systems Review of Systems: gen - no fevers cv - no chest pain Physical Exam Physical Exam: gen - obese, NAD, looks good today mouth - MMM neck - no JVD heart - RRR, s1 s2, no murmur lungs - CTA b/l abd - soft, ND, BS+, minimally tender left tender ext - no edema, pulses 2+ b/l feet psych - a/o x 3 Results & Data Results & Data Vital Signs (Past 12 Hours) Vital Signs Temp Pulse Resp BP Pulse Ox O2 Del Method 05/03/24 14:36 36.9 C 81 18 118/74 97 Room Air 05/03/24 08:00 Room Air 05/03/24 07:37 36.5 C 62 18 114/68 97 Room Air Laboratory Results Laboratory Results - last 24 hr 01/19/25 01/19/25 01/19/25 07:25 07:32 11:44 WBC 9.07 RBC 4.10 L Hgb 12.5 Hct 37.0 MCV 90.2 MCH 30.5 MCHC 33.8 RDW Std Deviation 41.8 RDW Coeff of Kailee 12.7 Plt Count 290 MPV 8.9 L Immature Gran % (Auto) 0.6 Neut % (Auto) 61.0 Lymph % (Auto) 27.2 [place] % (Auto) 7.5 Eos % (Auto) 2.8 Baso % (Auto) 0.9 Neut # (Auto) 5.54 Lymph # (Auto) 2.47 [place] # (Auto) 0.68 H Eos # (Auto) 0.25 Baso # (Auto) 0.08 Immature Gran # (Auto) 0.05 Sodium 136 Potassium 4.0 Chloride 114 H Carbon Dioxide 18 L Anion Gap 4 BUN 14 Creatinine 0.71 Est Cr Clr Drug Dosing 103.3 eGFR 102.88 BUN/Creatinine Ratio 19.7 Glucose 105 H POC Glucose 103 H 100 H Calcium 8.7 Magnesium 1.9 05/03/24 05/03/24 16:43 20:35 WBC RBC Hgb Hct MCV MCH MCHC RDW Std Deviation RDW Coeff of Kailee Plt Count MPV Immature Gran % (Auto) Neut % (Auto) Lymph % (Auto) [place] % (Auto) Eos % (Auto) Baso % (Auto) Neut # (Auto) Lymph # (Auto) [place] # (Auto) Eos # (Auto) Baso # (Auto) Immature Gran # (Auto) Sodium Potassium Chloride Carbon Dioxide Anion Gap BUN Creatinine Est Cr Clr Drug Dosing eGFR BUN/Creatinine Ratio Glucose POC Glucose 103 H 91 Calcium Magnesium Diagnostic Findings Microbiology 05/01/24 23:00 Urine,Clean Catch Urine Culture - Preliminary Escherichia coli PG Care Time/CCT Total # of Minutes Spent Total Time Spent with Patient: Total time spent is greater than 50% in coordination of care (as documented) at patient's floor/unit and/or counseling patient: Coding Level of Care Code 20303 SUB INP/OBS CARE 2/35MIN Diagnoses Ureterolithiasis N20.1 Acute UTI N39.0 Bilateral hydronephrosis N13.30 Prediabetes R73.03 RAJEEV (obstructive sleep apnea) G47.33 Asthma J45.909 Bipolar 2 disorder, major depressive episode F31.81 Hypothyroidism E03.9 GERD (gastroesophageal reflux disease) K21.9
[2024-05-04 07:16] VITALS: RESP 16
[2024-05-04] MEDS: oxyBUTYnin chloride 5 MG TAB PO PRN (07:45)
--- NOTE | 2024-05-04 08:19 | Fluoroscopy Report ---
FL retrograde includes kub CLINICAL HISTORY: CYSTO TECHNIQUE: 4 views were obtained with the C-arm in the OR with the above procedure. Total fluoroscopy time was 5.6 seconds. Radiation dose was 2.1 mGy. Comparison: Comparison is made to CT abdomen pelvis 05/02/2024 FINDINGS/IMPRESSION: Intraoperative images were obtained of cystogram and left stent placement. In th e final images, the stent is in satisfactory position. Please correlate with intraoperative fluoroscopy and operative report. ACT 112: Negative or not required by law. Electronically signed by: Lawrence Garza M.D. 05/04/2024 8:17 AM
[2024-05-04 08:45] LABS: BUN Creatinine Ratio 21.8 (10-20); Calcium 9.5 mg/dl (8.6-10.3); Creatinine Clr Calc Pharmacy 84.3 ml/min; Potassium 3.8 mmol/L (3.5-5.1)
[2024-05-04] MEDS: ERTAPENEM 1000MG 1,000 MG/10 ML SYR IV SCH (10:44)
--- NOTE | 2024-05-04 16:17 | Hospitalist Progress Note ---
Date of Service May 04, 2024 Assessment & Plan (1) Ureterolithiasis: Plan: POD #2 s/p cystoscopy with left ureteral stent placement by Dr Fernandez for 8mm proximal left-sided ureteral stone appreciate urology assistance doing well from urology standpoint pain meds prn cont flomax cont oxybutinin/pyridium as needed IV abx for #2 patient on chronic topamax - need for discontinuation?? need to d/w urology (2) Acute UTI: Plan: 2nd to e.coli I spoke with microbiology - they are concerned it may be ESBL e.coli although sensitivity panel will not return until 05/05 stop IV cefepime start IV ertapenem daily f/u on culture in am (3) Bilateral hydronephrosis: Plan: left-sided is 2nd to #1 however, has b/l hydro - chronic ureteral urine reflux? other? defer work-up/Rx to urology (4) Prediabetes: Plan: a1c 5.5% in 02/2024 (5) RAJEEV (obstructive sleep apnea): (6) Asthma: Plan: no flare at this time lungs clear on exam; o2 sats wnl in RA (7) Bipolar 2 disorder, major depressive episode: Plan: cont home meds topamax usage -- relatively contraindicated with kidney stones d/w urology (8) Hypothyroidism: Plan: TSH 02/2024 wnl cont synthroid (9) GERD (gastroesophageal reflux disease): Plan: cont PPI Plan anticipate d/c home tomorrow once final urine cx results return if she needs IV therapy post-d/c patient willing to do so Admission and Anticipated Discharge Date Admission Date: May 02, 2024 Subjective spoke with microbiology they are concerned that current e.coli isolate MAY be ESBL thus, I changed her IV cefepime to IV ertapenem patient without any new complaints no hematuria mild left sided pain no N/V eating well ambulating no stool yet Review of Systems Review of Systems: gen - no fevers or chills cv - no chest pain pulm - no dyspnea Physical Exam Physical Exam: gen - obese, NAD, looks great today mouth - MMM neck - no JVD heart - RRR, s1 s2, no murmur lungs - CTA b/l abd - soft, ND, BS+, minimally tender left tender ext - no edema, pulses 2+ b/l feet psych - a/o x 3 Results & Data Results & Data Vital Signs (Past 12 Hours) Vital Signs Temp Pulse Resp BP Pulse Ox O2 Del Method 05/04/24 14:57 36.3 C L 77 16 122/85 94 Room Air 05/04/24 07:15 36.6 C 80 16 128/82 97 Room Air Laboratory Results Laboratory Results - last 48 hr 05/03/24 05/03/24 05/03/24 07:25 07:32 11:44 WBC 9.07 RBC 4.10 L Hgb 12.5 Hct 37.0 MCV 90.2 MCH 30.5 MCHC 33.8 RDW Std Deviation 41.8 RDW Coeff of Kailee 12.7 Plt Count 290 MPV 8.9 L Immature Gran % (Auto) 0.6 Neut % (Auto) 61.0 Lymph % (Auto) 27.2 [place] % (Auto) 7.5 Eos % (Auto) 2.8 Baso % (Auto) 0.9 Neut # (Auto) 5.54 Lymph # (Auto) 2.47 [place] # (Auto) 0.68 H Eos # (Auto) 0.25 Baso # (Auto) 0.08 Immature Gran # (Auto) 0.05 Sodium 136 Potassium 4.0 Chloride 114 H Carbon Dioxide 18 L Anion Gap 4 BUN 14 Creatinine 0.71 Est Cr Clr Drug Dosing 103.3 eGFR 102.88 BUN/Creatinine Ratio 19.7 Glucose 105 H POC Glucose 103 H 100 H Calcium 8.7 Magnesium 1.9 05/03/24 05/03/24 05/04/24 16:43 20:35 07:50 WBC RBC Hgb Hct MCV MCH MCHC RDW Std Deviation RDW Coeff of Kailee Plt Count MPV Immature Gran % (Auto) Neut % (Auto) Lymph % (Auto) [place] % (Auto) Eos % (Auto) Baso % (Auto) Neut # (Auto) Lymph # (Auto) [place] # (Auto) Eos # (Auto) Baso # (Auto) Immature Gran # (Auto) Sodium Potassium Chloride Carbon Dioxide Anion Gap BUN Creatinine Est Cr Clr Drug Dosing eGFR BUN/Creatinine Ratio Glucose POC Glucose 103 H 91 108 H Calcium Magnesium 05/04/24 05/04/24 05/04/24 08:11 11:25 16:32 WBC RBC Hgb Hct MCV MCH MCHC RDW Std Deviation RDW Coeff of Kailee Plt Count MPV Immature Gran % (Auto) Neut % (Auto) Lymph % (Auto) [place] % (Auto) Eos % (Auto) Baso % (Auto) Neut # (Auto) Lymph # (Auto) [place] # (Auto) Eos # (Auto) Baso # (Auto) Immature Gran # (Auto) Sodium 137 Potassium 3.8 Chloride 110 H Carbon Dioxide 20 L Anion Gap 7 BUN 19 Creatinine 0.87 Est Cr Clr Drug Dosing 84.3 eGFR 80.61 BUN/Creatinine Ratio 21.8 H Glucose 115 H POC Glucose 117 H 120 H Calcium 9.5 Magnesium Diagnostic Findings Microbiology 05/01/24 23:00 Urine,Clean Catch Urine Culture - Preliminary Escherichia coli PG Care Time/CCT Total # of Minutes Spent Total Time Spent with Patient: Total time spent is greater than 50% in coordination of care (as documented) at patient's floor/unit and/or counseling patient: Coding Level of Care Code 19296 SUB INP/OBS CARE 05/09MIN Diagnoses Ureterolithiasis N20.1 Acute UTI N39.0 Bilateral hydronephrosis N13.30 Prediabetes R73.03 RAJEEV (obstructive sleep apnea) G47.33 Asthma J45.909 Bipolar 2 disorder, major depressive episode F31.81 Hypothyroidism E03.9 GERD (gastroesophageal reflux disease) K21.9
[2024-05-04] MEDS: SENNA 8.6 MG TAB PO SCH (17:19)
[2024-05-04] MEDS: POLYETHYLENE (MIRALAX) 17 GM PACK PO SCH (17:19)
[2024-05-04] MEDS: PHENAZOPYRIDINE HCL 100 MG TAB PO PRN (20:35)
[2024-05-05 07:09] VITALS: BP 150/79; PULSE 66; TEMP 97.3; O2SAT 96
--- NOTE | 2024-05-05 09:36 | Discharge Summary ---
Discharge Summary Date of Service May 05, 2024 Principal Dx & Hospital Course #1 = Principal Diagnosis (1) Ureterolithiasis: (2) Acute UTI: (3) Bilateral hydronephrosis: (4) Prediabetes: Plan Patient is a 49-year-old female with a past medical history of recurrent UTIs, bipolar disorder, depression, asthma, sleep apnea, prediabetes, HTN. She presents to ED for abdominal pain. She is being admitted for a UTI and nephro lithiasis. #left nephrolithiasis/UTI/bilateral hydronephrosis patient with history of recurrent UTIs and nephrolithiasis UA infectious 1+ protein, trace ketones, 3+ leukocyte esterase, >50 WBC, 4+ bacteria, 6-[address] showing bilateral hydronephrosis with 8 mm calculus of left upper ureter s/p L stent placement w/ Dr. Fernandez 05/02 IV acetaminophen and Zofran as needed Originally treated w/ IV Cefepime and then transitioned to IV Ertapenem for remainder of hospital stay. UC + for E. Coli, verified w/ microbiology that specimen was negative for ESBL. Sent home on Ciprofloxacin to complete treatment. Continue Flomax on discharge. Consider alternative medication to Topamax as this can contribute to stone formation. - defer to PCP. #polycystic kidney disease Many bilateral renal cysts seen on CT scan possibly contributing to right sided pain although unlikely #preDM resume metformin on d/c #HTN/hypotension mildly hypotensive in ED Likely secondary to dehydration with diarrhea above Lisinopril resumed. Chronic stable diagnoses: PCOS - cysts seen on CT bipolar disorder/anxiety/depression - continue home hydroxyzine, lurasidone, melatonin, oxcarbazepine, topiramate fibromyalgia/chronic back pain - hold home Flexeril and gabapentin until no longer n.p.o. GERD - hold PO PPI and Pepcid until no longer NPO - will order IV protonix Asthma - continue inhalers hypothyroidism - continue levothyroxine Patient discharged to home 05/05. Admission HPI Per Admitting Provider Patient is a 49-year-old female with a past medical history of recurrent UTIs, bipolar disorder, depression, asthma, sleep apnea, prediabetes, HTN. She presents today due to abdominal pain. She is being admitted for a UTI and nephrolithiasis. Will consult urology. Patient seen at bedside. She stated that she began with right sided abdominal pain at 7 PM this evening; the pain is still present and has not changed. She denies left-sided abdominal pain. She stated that she has had an odor to her urine for approximately a week and suspected that she had a UTI. She has also had diarrhea for the past 3 days; resolved today. She also endorses nausea but no vomiting. She has a history of kidney stones requiring stent placement. Patient denies fever, chills, rhinorrhea, sore throat, cough, sputum production, dyspnea, dyspnea on exertion, chest pain, vomiting. She does not use nicotine products or drink alcohol. She does have a history of sleep apnea however no longer needs to use her CPAP machine; had a repeat sleep study that determined she no longer has sleep apnea. She did take her evening medications last night. She wishes to be full code at this time. Discharge Exam Constitutional WD/WN, vitals as above Eyes PERRL, conjunctivae normal, anicteric sclerae Respiratory normal respiratory effort, lungs clear to auscultation Cardiovascular RRR, no murmur, no edema Psychiatric A+Ox3, euthymic affect Discharge Plan Discharge Items Patient Disposition: Home - Self-Care Reason For Visit: UTI, NEPHROLITHIASIS Discharge Diagnosis: UTI, nephrolithiasis Condition on Discharge: Good Activity: Resume your previous activity Non-emergency contact: Primary Care Provider and Urologist Call non-emergency contact if: you have any medication questions, your symptoms worsen and your pain is not controlled Follow-up/Referrals: Delia Funes CRNP [Primary Care Provider] - 05/12/24 10:30 am Bud Fernandez MD [Physician] - (THE OFFICE WILL CALL YOU WITH A HOSPITAL FOLLOW UP VISIT.) Diet: Carb Consistent or DM2 Addtl Attending Provider Instructions: Ms. Banerjee, You were recently hospitalized for abdominal pain and were found to have a UTI and kidney stone. You underwent a procedure with urology during your hospital stay. Please see recommendations below regarding your discharge. 1. Please take Ciprofloxacin twice daily for 4 days. Your first dose will be tomorrow morning, 05/06. Please take with food to avoid GI upset. 2. Tamsulosin is a new medication for you. Please take this once daily in the morning. First dose at home is 05/06. 2. Please talk to your prescriber of your Topamax as this can be linked to kidney stone formation. Please continue to take this medication until this discussion has taken place. 3. You may resume the remainder of your outpatient medications. 4. Follow up with urology outpatient at an appointment to be scheduled. If you do not hear from there office, please contact them. The phone number is above. 5. Please follow up with your PCP within 1-2 weeks of discharge. If you develop any worsening urinary symptoms including blood in urine, severe low back pain, urinary urgency/frequency please report back to the ED for further care. Sincerely, Cassie Flores PA-C Pending Studies at Discharge: No Stand-Alone Forms: My [facility] Tutum, Smoking Cessation Medications and DC Order Prescriptions: New tamsulosin 0.4 mg Capsule 0.4 mg PO QAM Qty: 30 0RF ciprofloxacin HCl 500 mg tablet 500 mg PO BID Qty: 8 0RF Continued topiramate [Topamax] 200 mg tablet 200 mg PO BID Qty: 180 2RF lisinopril 5 mg tablet 5 mg PO QAM Qty: 100 3RF pantoprazole [Protonix] 40 mg tablet,delayed release (DR/EC) 40 mg PO QAM Qty: 90 3RF cetirizine [Zyrtec] 10 mg tablet 10 mg PO DAILY Qty: 90 3RF cyclobenzaprine 10 mg tablet 10 mg PO BID Qty: 180 1RF levothyroxine 50 mcg tablet 50 mcg PO QAM Qty: 90 3RF Rx Instructions: TAKE THIS MEDICATION AT LEAST 30 MINUTES BEFORE BREAKFAST OR ANY OTHER MEDICATIONS meloxicam 7.5 mg tablet 15 mg PO DAILY Qty: 90 3RF hydroxyzine HCl 50 mg tablet 100 mg PO HS 90 Days Qty: 180 3RF epinephrine [EpiPen] 0.3 mg/0.3 mL auto-injector 0.3 mg IM DIRECTED PRN (Reason: Severe Allergic Reaction) Qty: 2 1RF famotidine 20 mg tablet 20 mg PO DAILY Qty: 90 1RF dicyclomine 20 mg tablet 20 mg PO BID 90 Days Qty: 180 3RF gabapentin 800 mg tablet 800 mg PO TID Qty: 90 0RF oxcarbazepine [Trileptal] 300 mg tablet 450 mg PO BID lurasidone [Latuda] 20 mg tablet 20 mg PO DAILY Qty: 30 2RF Rx Instructions: must administer with food (at least 350 calories), ordered by walker metformin 500 mg tablet extended release 24 hr 500 mg PO QPM Qty: 100 3RF rizatriptan [Maxalt] 10 mg Tablet 10 mg PO UD MDD 30 MG/24 HOURS PRN (Reason: Migraine Headache) Rx Instructions: TAKE ONE TABLET AT ONSET OF MIGRAINE HEADACHE, MAY REPEAT DOSE EVERY TWO HOURS IF NEEDED. MAXIMUM 3 TABLETS/24 HOURS fluticasone propionate [Flonase Allergy Relief] 50 mcg/actuation [place],Susp ension 2 spray INTRANASAL DAILY PRN (Reason: Allergy Symptoms) fluticasone furoate-vilanterol [Breo Ellipta] 200-25 mcg/dose Blister With Device 1 inh INHALATION QAM Patient Comments: pt has with her Probiotic and Acidophilus 300-250 million cell-mg Capsule 1 cap PO QAM magnesium oxide 400 mg magnesium Tablet 400 mg PO QAM ondansetron 4 mg Tablet,Disintegrating 4 mg PO Q8H PRN (Reason: Nausea) cyanocobalamin (vitamin B-12) [Vitamin B-12] 1,000 mcg Tablet 1,000 mcg PO QAM cranberry 500 mg capsule 125 mg PO QAM albuterol sulfate [ProAir HFA] 90 mcg/actuation Hfa Aerosol Inhaler 1 inh INHALATION QID PRN (Reason: Wheezing) cholecalciferol (vitamin D3) 125 mcg (5,000 unit) capsule 5,000 unit PO DAILY docusate sodium 100 mg capsule 100 mg PO DAILY vitamin B complex Tablet 1 tab PO QAM sennosides [Senokot] 8.6 mg Tablet 17.2 mg PO QAM PRN (Reason: constipation) Qty: 30 0RF Patient Comments: Not currently taking. Already taking colace albuterol sulfate 2.5 mg /3 mL (0.083 %) solution for nebulization 2.5 mg continuous nebulization Q4H PRN (Reason: Shortness Of Breath Or Wheezing) cyclosporine 0.05 drp BID Rx Instructions: instill 1 drop in each eye twice a day. erythromycin 5 mg/gram (0.5 %) Ointment 1 applic OPHTHALMIC (EYE) DAILY lidocaine 4 % Adhesive Patch,Medicated 1 patch TOPICAL DAILY PRN (Reason: Pain) melatonin 3 mg Tablet 6 mg PO PM prazosin 4 mg HS Discharge Orders: Discharge Order (Routine); Ordered 05/05/24 Ordered By: Cassie Flores Admission Data Admit Date/Time: 05/02/24 03:56 Attending Provider: Xander Telles Admit Provider: Justin Rodriguez Primary Care Provider: Delia Funes Other Providers: Justin Rodriguez; Bud Fernandez Hospital Stay Data Consultations 05/02/24 03:34 ED Decision to Admit Stat 05/02/24 06:38 Consult Urology Routine Procedures Performed Operation Date: 05/02/24 13:00 Actual Procedures p Cystoscopy, Left Ureteral Stent Insertion(Left) - Bud Fernandez MD Diagnostic Imagining Performed 05/01/24 22:38 CT abd pelvis IV con only Stat 05/02/24 [place] retrograde includes kub Routine Pending Results Patient Have Any Pending Studies at Discharge: No Discharge Instructions Given to Patient (Per Discharging Provider) Ms. Banerjee, Chas were recently hospitalized for abdominal pain and were found to have a UTI and kidney stone. You underwent a procedure with urology during your hospital stay. Please see recommendations below regarding your discharge. 1. Please take Ciprofloxacin twice daily for 4 days. Your first dose will be tomorrow morning, 05/06. Please take with food to avoid GI upset. 2. Tamsulosin is a new medication for you. Please take this once daily in the morning. First dose at home is 05/06. 2. Please talk to your prescriber of your Topamax as this can be linked to kidney stone formation. Please continue to take this medication until this discussion has taken place. 3. You may resume the remainder of your outpatient medications. 4. Follow up with urology outpatient at an appointment to be scheduled. If you do not hear from there office, please contact them. The phone number is above. 5. Please follow up with your PCP within 1-2 weeks of discharge. If you develop any worsening urinary symptoms including blood in urine, severe low back pain, urinary urgency/frequency please report back to the ED for further care. Sincerely, Cassie Flores PA-C Total Time Total Time Spent Total Time Spent (In Minutes): 45 Total Time Includes: Examination of the Patient, Discharge Planning, Medication Reconciliation and Communication With Other Providers Coding Level of Care Code 65509 INP/OBS DISCH >30 MIN Diagnoses Ureterolithiasis N20.1 Acute UTI N39.0 Bilateral hydronephrosis N13.30 Prediabetes R73.03
[2024-05-05] MEDS: CIPROFLOXACIN 500 MG TAB PO STA (09:59)
[2024-05-05] MEDS: ERTAPENEM 1000MG 1,000 MG/10 ML SYR IV SCH (10:10)
== END 2024-05-05 16:01 | disposition home or self-care (01) | DRG 660 ==
LOC: SUATTDRO → ED 22:19 → SUATTDRO 05-02 03:56 → EDINP 05-02 03:56 → 3W 05-02 17:27

== ENCOUNTER 2024-06-25 12:59 | Observation (INO) ==
--- NOTE | 2024-06-17 15:30 | Anesthesiology Consultation ---
Date of Service June 17, 2024 Assessment & Plan (1) Encounter for pre-operative examination: Chart Review Chart Review: Acceptable Risk for Surgery and Patient NOT seen in Pre Admission Testing Infectious Disease screening: Per PAT nursing assessment on 06/17/24, No known infectious disease contacts in past 10 days or current infectious disease symptoms. No recent travel outside the country. History Surgery Operation Date: 06/25/24 11:50 Proposed Procedures p Cystoscopy, Ureteronephroscopy, Retrograde Pyelogram, with Possible Ureteral Dilation, Laser Destruction or Extraction of the Stone, Insertion or Exchange of Stent Catheter - Left - Bud Fernandez MD Height/Weight Height: 5 ft 3.5 in Weight: 95.254 kg Allergies Allergy/AdvReac Type Severity Reaction Status Date / Time bee venom protein (honey bee) Allergy Severe ANAPHYLAXIS Verified 06/17/24 13:04 tomato Allergy Intermediate Hives Verified 06/17/24 13:04 morphine AdvReac Intermediate HALLUCINATI Verified 06/17/24 13:04 ONS Medications Home Medications Medication Instructions Recorded Confirmed Last Taken fluticasone propionate 50 2 spray intranasal DAILY PRN 01/10/18 06/17/24 05/01/24 mcg/actuation nasal Allergy Symptoms spray,suspension (Flonase Allergy Relief) rizatriptan 10 mg tablet (Maxalt) 10 mg PO UD PRN Migraine Headache 01/10/18 06/17/24 05/01/24 Lactobacillus comb 1 cap PO QAM 10/14/18 06/17/24 05/01/24 no.7-XND-kmaedifsty 300 million cell-250 mg capsule (Probiotic and Acidophilus) magnesium oxide 400 mg PO QAM 04/07/19 06/17/24 05/01/24 ondansetron 4 mg disintegrating 4 mg PO Q8H PRN Nausea 08/08/19 06/17/24 03/15/23 tablet cyanocobalamin (vitamin B-12) 1,000 mcg PO QAM 02/14/20 06/17/24 05/01/24 1,000 mcg tablet (Vitamin B-12) vitamin B complex 1 tab PO QAM 02/22/22 06/17/24 05/01/24 sennosides 8.6 mg tablet (Senokot) 17.2 mg (2 x 8.6 mg) PO QAM PRN 11/06/17/24 05/01/24 constipation #30 tabs albuterol sulfate 2.5 mg/3 mL 2.5 mg continuous nebulization Q4H 03/28/22 06/17/24 05/01/24 (0.083 %) solution for nebulization PRN Shortness Of Breath Or Wheezing cholecalciferol (vitamin D3) 125 5,000 unit PO DAILY 07/12/22 06/17/24 05/01/24 mcg (5,000 unit) capsule cranberry 500 mg capsule 125 mg PO QAM 08/23/22 06/17/24 05/01/24 topiramate 200 mg tablet (Topamax) 200 mg PO BID #180 tabs 09/20/22 06/17/24 05/01/24 docusate sodium 100 mg capsule 100 mg PO QAM 02/08/23 06/17/24 05/01/24 levothyroxine 50 mcg tablet 50 mcg PO QAM #90 tabs 12/26/23 06/17/24 05/01/24 meloxicam 7.5 mg tablet 15 mg (2 x 7.5 mg) PO DAILY PAIN 12/26/23 06/17/24 05/01/24 #90 tabs lidocaine 4 % topical patch 1 patch topical DAILY PRN Pain 01/01/24 06/17/24 epinephrine 0.3 mg/0.3 mL 0.3 mg (0.3 mL) IM DIRECTED PRN 01/24/24 06/17/24 Unknown injection, auto-injector (EpiPen) Severe Allergic Reaction #2 ea famotidine 20 mg tablet 20 mg PO DAILY #90 tabs 01/31/24 06/17/24 05/01/24 metformin 500 mg tablet,extended 500 mg PO QPM #100 tabs 02/14/24 06/17/24 05/01/24 release 24 hr dicyclomine 20 mg tablet 20 mg PO BID 3 months #180 tabs 02/28/24 06/17/24 05/01/24 tamsulosin 0.4 mg capsule 0.4 mg PO QAM #30 caps 05/05/24 06/17/24 Unknown cyclobenzaprine 10 mg tablet 10 mg PO BID #180 tabs 05/06/24 06/17/24 Unknown pantoprazole 40 mg tablet,delayed 40 mg PO QAM #90 tabs 05/06/24 06/17/24 Unknown release (Protonix) hydroxyzine HCl 50 mg tablet 100 mg PO HS Anxiety 05/08/24 06/17/24 Unknown lurasidone 20 mg tablet (Latuda) 20 mg PO QPM 05/08/24 06/17/24 Unknown oxcarbazepine 150 mg tablet 450 mg PO BID 05/08/24 06/17/24 Unknown prazosin 2 mg capsule 4 mg PO HS 05/08/24 06/17/24 Unknown oxycodone 5 mg tablet 5 mg PO Q8H PRN pain #9 tabs 05/09/24 06/17/24 Unknown ketorolac 10 mg tablet 10 mg PO Q8H PRN pain #10 tabs 05/15/24 06/17/24 Unknown oxybutynin chloride 5 mg 5 mg PO DAILY #10 tabs 05/15/24 06/17/24 Unknown tablet,extended release 24 hr phenazopyridine 200 mg tablet 200 mg PO Q8H PRN pain #6 tabs 05/15/24 06/17/24 Unknown (Pyridium) lisinopril 5 mg tablet 5 mg PO QAM #100 tabs 05/19/24 06/17/24 Unknown gabapentin 800 mg tablet 800 mg PO TID #90 tabs 05/20/24 06/17/24 Unknown sulfamethoxazole 800 1 tab PO BID #14 tabs 06/12/24 06/17/24 Unknown mg-trimethoprim 160 mg tablet (Bactrim DS) albuterol sulfate 90 mcg/actuation 2 puff inhalation QID PRN sob 06/17/24 06/17/24 Unknown aerosol inhaler fluticasone furoate 100 1 inh inhalation QAM 06/17/24 06/17/24 Unknown mcg-vilanterol 25 mcg/dose inhalation powder (Breo Ellipta) cetirizine 10 mg tablet (Zyrtec) 10 mg PO DAILY #90 tabs 06/18/24 Unknown Past Medical History Medical History (Updated 06/18/24 @ 12:06 by Rosa Garcia PA-C) Allergic rhinitis Asthma well controlled with daily inhaler use, prn inhaler, denies recent exacerbation Bipolar 2 disorder Borderline personality disorder Chest pain "none recently"; saw [facility] cardio and had negative stress 2020; per Cardio, sx attributed to GI etiology and anxiety Chronic back pain Closed head injury R/T FALL IN 2017; REPORTS CONCUSSION>"still gets very tired in the afternoon" Complicated bereavement hx Depression with suicidal ideation patient denies current or active SI/plan E. coli septicemia hx- 2016 Environmental and seasonal allergies Fibroadenoma of breast RT Fibromyalgia [place] (generalized anxiety disorder) Gastroparesis History of anemia as a child History of COVID-19 07/25/20>not hospitalized>"mild">resolved HTN (hypertension) Hx of Clostridium difficile infection end of 2021, tx w/abx. Hx of prolonged Q-T interval on ECG PER PT'S MEDICAL RECORD FROM PCP OFFICE. Hx of sepsis hospitalized at [facility] Feb 2022 for this > resolved per pt Hx of upper respiratory infection 07/2023- resolved Hydronephrosis due to obstruction of ureter hx Hypothyroidism IBS (irritable bowel syndrome) Kidney stone Migraine Obesity PCOS (polycystic ovarian syndrome) Peripheral neuropathy Polycystic kidney disease renal cysts seen on imaging; Urology following Poor historian Pre-diabetes metformin daily PTSD (post-traumatic stress disorder) Pyelonephritis hx Right ureteral calculus hx Small fiber neuropathy Suicidal ideation patient denies current or active SI/plan UTI (urinary tract infection) hx recurrent UTI; has active UTI; started Abx 06/17/24 Vitamin D deficiency Past Family History Family History Father Heart disease Other No significant family history Past Surgical History Surgical History H/O lithotripsy History of ankle surgery RT History of breast biopsy RT History of cystoscopy History of esophagogastroduodenoscopy (EGD) Hx of basal cell carcinoma excision nose Hx of cholecystectomy Hx of colonoscopy Hx of knee surgery RT Hx of shoulder surgery S/P cystoscopy with ureteral stent placement w/laser destruction kidney stone S/P ureteral stent placement cysto, L stent 05/01/24: MAC without issue Status post labral repair of shoulder RT Social History Smoking Status: Never smoker Do You Dip or Chew Tobacco: No Hx Alcohol Use: No Hx Substance Use: No substance use type: does not use Lab Results Anesthesia Preop Results Results Anesthesia Widget: WBC 17.37 K/ul (4.8-10.8) H 06/12/24 Hgb 12.2 g/dl (12.0-16.0) 06/12/24 Hct 36.2 % (37.0-47.0) L 06/12/24 Plt 306 K/uL (130-400) 06/12/24 Na 138 mmol/L (136-145) 06/12/24 K 3.9 mmol/L (3.5-5.1) 06/12/24 Cl 110 mmol/L (98-107) H 06/12/24 CO2 21 mmol/L (21-32) 06/12/24 BUN 30 mg/dl (6-23) H 06/12/24 Creat 1.11 mg/dl (0.6-1.2) 06/12/24 Glucose Level 110 mg/dl (70-99(Fasting)) H 06/12/24 POC Glucose 126 mg/dl (70-99) H 05/05/24 Urine Color Dark Yellow 05/15/24 Urine Appearance Cloudy (Clear) A 05/15/24 Urine pH 7.0 (4.5-7.5) 05/15/24 Urine Specific [place] 1.019 (1.000-1.030) 05/15/24 Urine Protein 2+ (Negative) H 05/15/24 Urine Glucose (UA) Negative (Negative) 05/15/24 Urine Ketones Negative (Negative) 05/15/24 Urine Blood 2+ (Negative) H 05/15/24 Urine Nitrite Negative (Negative) 05/15/24 Urine Bilirubin Negative (Negative) 05/15/24 Urine Urobilinogen Negative (Negative) 05/15/24 Urine Leukocyte Esterase 2+ (Negative) H 05/15/24 Urine WBC (Auto) 11-20 /hpf (0-5) H 05/15/24 Urine RBC (Auto) >20 /hpf (0-2) H 05/15/24 Urine Hyaline Casts (Auto) 0-2 /lpf (0-2) 05/15/24 Urine Epithelial Cells (Auto) 0-2 /hpf (0-2) 05/15/24 Urine Bacteria (Auto) None Seen (None Seen) 05/15/24 Testing Laboratory Results 06/16/24: urine culture: three types of organisms present, all moderate counts. Repeat collection recommended. No further identifications or sensitivities to follow (surgeon's office aware) Electrocardiogram Date: 05/02/24 Findings: + NSR @ (76bpm) LAD. poor R wave progression anterior leads. No significant change from 01/01/24 Chest X-Ray Date: 01/01/24 Findings: + NAD Stress Test Date: 09/01/20 Type: DSE Findings: + WNL Negative DSE for inducible ischemia. LVWM with stress is normal mild cLVH. EF 60-64% Gr I DD. No significant valve disease
[2024-06-25] MEDS: LR 15ML/HR IV SCH (13:24)
--- NOTE | 2024-06-25 14:04 | History & Physical Report ---
Date of Service June 25, 2024 Assessment & Plan (1) Kidney stone: Plan: We reviewed the plan for cystoscopy, left retrograde pyelogram, left ureteroscopy with laser lithotripsy and stone removal. We reviewed her preoperative culture. We discussed whether to proceed with surgery or to repeat culture to ensure urine was negative. Since she was initially having symptoms which resolved with antibiotics and she has not had any recurrence of symptoms, she would like to proceed. We discussed that there may be slightly increased risk of doing this and I would likely send her home on a course of antibiotics. We also discussed the possibility that if there is any evidence of infection of the bladder, I may simply exchange her stent and check another urine culture. She expressed understanding and accepted these risks. History of Present Illness Primary Care Provider: BERNARDINO Moore This is a 49-year-old female followed by urology for nephrolithiasis. She recently underwent left ureteral stent placement for obstructing stone in the setting of UTI. Infection was treated, however she had mixed bacteria on her preoperative culture. She reports having been on antibiotics. Initially she was having low-grade fevers but these have resolved and she denies any fevers or lower urinary tract symptoms. Specifically denies any burning or dysuria, a lthough has ongoing discomfort from the stent. She presents for cystoscopy, left ureteroscopy with laser lithotripsy and stone removal. Allergies Allergy/AdvReac Type Severity Reaction Status Date / Time bee venom protein (honey bee) Allergy Severe ANAPHYLAXIS Verified 06/25/24 13:21 tomato Allergy Intermediate Hives Verified 06/25/24 13:21 morphine AdvReac Intermediate HALLUCINATI Verified 06/25/24 13:21 ONS Home Medications Medication Instructions Recorded Confirmed Type fluticasone propionate 50 2 spray intranasal DAILY PRN 01/10/18 06/25/24 History mcg/actuation nasal Allergy Symptoms spray,suspension (Flonase Allergy Relief) rizatriptan 10 mg tablet (Maxalt) 10 mg PO UD PRN Migraine Headache 01/10/18 06/25/24 History Lactobacillus comb 1 cap PO QAM 10/14/18 06/25/24 History no.[id number] 300 million cell-250 mg capsule (Probiotic and Acidophilus) magnesium oxide 400 mg PO QAM 04/07/19 06/25/24 History ondansetron 4 mg disintegrating 4 mg PO Q8H PRN Nausea 08/08/19 06/25/24 History tablet cyanocobalamin (vitamin B-12) 1,000 mcg PO QAM 02/14/20 06/25/24 History 1,000 mcg tablet (Vitamin B-12) vitamin B complex 1 tab PO QAM 02/22/22 06/25/24 History sennosides 8.6 mg tablet (Senokot) 17.2 mg (2 x 8.6 mg) PO QAM PRN 02/27/22 06/25/24 Rx constipation #30 tabs albuterol sulfate 2.5 mg/3 mL 2.5 mg continuous nebulization Q4H 03/28/22 06/25/24 History (0.083 %) solution for nebulization PRN Shortness Of Breath Or Wheezing cholecalciferol (vitamin D3) 125 5,000 unit PO DAILY 07/12/22 06/25/24 History mcg (5,000 unit) capsule cranberry 500 mg capsule 125 mg PO QAM 08/23/22 06/25/24 History topiramate 200 mg tablet (Topamax) 200 mg PO BID #180 tabs 09/20/22 06/25/24 Rx docusate sodium 100 mg capsule 100 mg PO QAM 02/08/23 06/25/24 History levothyroxine 50 mcg tablet 50 mcg PO QAM #90 tabs 12/26/23 06/25/24 Rx meloxicam 7.5 mg tablet 15 mg (2 x 7.5 mg) PO DAILY PAIN 12/26/23 06/25/24 Rx #90 tabs lidocaine 4 % topical patch 1 patch topical DAILY PRN Pain 01/01/24 06/25/24 History epinephrine 0.3 mg/0.3 mL 0.3 mg (0.3 mL) IM DIRECTED PRN 01/24/24 06/25/24 Rx injection, auto-injector (EpiPen) Severe Allergic Reaction #2 ea famotidine 20 mg tablet 20 mg PO DAILY #90 tabs 01/31/24 06/25/24 Rx metformin 500 mg tablet,extended 500 mg PO QPM #100 tabs 02/14/24 06/25/24 Rx release 24 hr dicyclomine 20 mg tablet 20 mg PO BID 3 months #180 tabs 02/28/24 06/25/24 Rx tamsulosin 0.4 mg capsule 0.4 mg PO QAM #30 caps 05/05/24 06/25/24 Rx cyclobenzaprine 10 mg tablet 10 mg PO BID #180 tabs 05/06/24 06/25/24 Rx pantoprazole 40 mg tablet,delayed 40 mg PO QAM #90 tabs 05/06/24 06/25/24 Rx release (Protonix) hydroxyzine HCl 50 mg tablet 100 mg PO HS Anxiety 05/08/24 06/25/24 History lurasidone 20 mg tablet (Latuda) 20 mg PO QPM 05/08/24 06/25/24 History oxcarbazepine 150 mg tablet 450 mg PO BID 05/08/24 06/25/24 History prazosin 2 mg capsule 4 mg PO HS 05/08/24 06/25/24 History oxycodone 5 mg tablet 5 mg PO Q8H PRN pain #9 tabs 05/09/24 06/25/24 Rx ketorolac 10 mg tablet 10 mg PO Q8H PRN pain #10 tabs 05/15/24 06/25/24 Rx oxybutynin chloride 5 mg 5 mg PO DAILY #10 tabs 05/15/24 06/25/24 Rx tablet,extended release 24 hr phenazopyridine 200 mg tablet 200 mg PO Q8H PRN pain #6 tabs 05/15/24 06/25/24 Rx (Pyridium) lisinopril 5 mg tablet 5 mg PO QAM #100 tabs 05/19/24 06/25/24 Rx gabapentin 800 mg tablet 800 mg PO TID #90 tabs 05/20/24 06/25/24 Rx sulfamethoxazole 800 1 tab PO BID #14 tabs 06/12/24 06/25/24 Rx mg-trimethoprim 160 mg tablet (Bactrim DS) albuterol sulfate 90 mcg/actuation 2 puff inhalation QID PRN sob 06/17/24 06/25/24 History aerosol inhaler fluticasone furoate 100 1 inh inhalation QAM 06/17/24 06/25/24 History mcg-vilanterol 25 mcg/dose inhalation powder (Breo Ellipta) cetirizine 10 mg tablet (Zyrtec) 10 mg PO DAILY #90 tabs 06/18/24 06/25/24 Rx Past Med/Surg History Problem List Renal cyst Pain with urination Acute diarrhea Renal colic on left side (Acute) Ureterolithiasis (Acute) Polycystic kidney disease Bilateral hydronephrosis Hypertension Bee sting-induced anaphylaxis History of suicidal ideation Basal cell carcinoma of skin of nose Viral URI with cough Borderline personality disorder Suicidal ideation Nasal sinus congestion UTI (urinary tract infection), uncomplicated Well adult exam Allergic rhinitis RAJEEV (obstructive sleep apnea) Asthma (06/09/12) Insomnia Irritable bowel syndrome with constipation Chronic migraine Vitamin D deficiency (Chronic) DALLAS (generalized anxiety disorder) (Chronic) Chronic back pain S/P ureteral stent placement Gastroparesis Prediabetes UTI (urinary tract infection) (Acute) Bipolar 2 disorder, major depressive episode (Chronic) PCO (polycystic ovaries) Peripheral neuropathy Fibromyalgia PTSD (post-traumatic stress disorder) (Chronic) Migraine GERD (gastroesophageal reflux disease) Obesity Hypothyroidism Kidney stone Patient with obstructing left renal stone and urosepsis Plan patient will be taken to the operating room for emergent stent placement for seizure risks and benefits discussed Medical History Obesity Kidney stone Hypothyroidism PTSD (post-traumatic stress disorder) Fibromyalgia Peripheral neuropathy PCOS (polycystic ovarian syndrome) Gastroparesis Chronic back pain DALLAS (generalized anxiety disorder) Vitamin D deficiency Migraine IBS (irritable bowel syndrome) Environmental and seasonal allergies Allergic rhinitis Borderline personality disorder Hx of upper respiratory infection 07/2023- resolved HTN (hypertension) Polycystic kidney disease renal cysts seen on imaging; Urology following UTI (urinary tract infection) hx recurrent UTI; has active UTI; started Abx 06/17/24 Pre-diabetes metformin daily Small fiber neuropathy Bipolar 2 disorder History of anemia as a child Hx of Clostridium difficile infection end of 2021, tx w/abx. History of COVID-19 07/25/20>not hospitalized>"mild">resolved Suicidal ideation patient denies current or active SI/plan Pyelonephritis hx Hx of sepsis hospitalized at [facility] Feb 2022 for this > resolved per pt Hydronephrosis due to obstruction of ureter hx Right ureteral calculus hx Complicated bereavement hx Depression with suicidal ideation patient denies current or active SI/plan Chest pain "none recently"; saw S cardio and had negative stress 2021; per Cardio, sx attributed to GI etiology and anxiety Poor historian Hx of prolonged Q-T interval on ECG PER PT'S MEDICAL RECORD FROM PCP OFFICE. Fibroadenoma of breast RT Asthma well controlled with daily inhaler use, prn inhaler, denies recent exacerbation Closed head injury R/T FALL IN 2017; REPORTS CONCUSSION>"still gets very tired in the afternoon" E. coli septicemia hx- 2017 Surgical History S/P ureteral stent placement cysto, L stent 05/01/24: MAC without issue Hx of basal cell carcinoma excision nose S/P cystoscopy with ureteral stent placement w/laser destruction kidney stone History of esophagogastroduodenoscopy (EGD) Status post labral repair of shoulder RT History of breast biopsy RT H/O lithotripsy History of cystoscopy Hx of shoulder surgery Hx of colonoscopy Hx of knee surgery RT History of ankle surgery RT Hx of cholecystectomy Family History Father Heart disease Other No significant family history Social History Smoking Status: Never smoker Second Hand Exposure: No; Do You Dip or Chew Tobacco: No; Tobacco Cessation Education Requested by Patient: No Hx Alcohol Use: No Hx Substance Use: No Preferred Language: Slovenian Communication Ability: Effective Visual Impairment: Limited Hearing Ability: Use of Hearing Aid Automation Machine Builder Required: No Beliefs That Will Affect Care: None marital status: Single Current Living Situation: Parent Current Living Situation Comment: pt lives with her mother current occupational status: disabled How many Children do You have: 0 Other Information That Helps Us Care for You: No Feels Safe at Home: Yes Safety Concerns: Feels Safe At This Time Childhood Exposure to Second-Hand Smoke: No Diet: regular caffeine: Yes during the past year weight has: remained stable Dental Care, Regularly: Yes Physical Activity Frequency: Daily Seatbelt Use: always Sunscreen Use: Yes Gender Identity: Female Assistive Devices: Denture - Lower, Glasses, Hearing Aid - Bilateral and Nebulizer Assistive Devices Comment: partials Review of Systems 10 point review of systems negative except for otherwise indicated. Physical Exam Constitutional: well developed and well nourished; no acute distress Eyes: + anicteric sclerae; pupils not irregula r Respiratory: normal respiratory effort; no respiratory distress, does not use accessory muscles and no cough Cardiovascular: well perfused Gastrointestinal (Abdomen): Inspection/Auscultation: abdomen normal to inspection; abdomen not distended Musculoskeletal: Extremities: extremities normal to inspection Skin: normal turgor; no rashes and no lesions Neurologic: moves all extremities and awake Psychiatric: Orientation: alert and oriented x 3 Results & Data Vital Signs (Past 12 Hours) Vital Signs Temp Pulse Resp BP Pulse Ox O2 Del Method 06/25/24 13:26 37 C 102 H 18 146/89 H 96 Room Air
[2024-06-25] MEDS ORDERED: DEXAMETHASONE SOD INJ 4 MG/ML VIAL ONE ×2 (14:14→15:34)
[2024-06-25] MEDS ORDERED: MIDAZOLAM HCL 1 MG/ML 2ML VIAL ONE (14:14)
[2024-06-25] MEDS ORDERED: PROPOFOL IV EMULSION 10 MG/ML 20 ML VIAL IV ONE ×2 (14:14→15:13)
[2024-06-25] MEDS ORDERED: ONDANSETRON INJ 2 MG/ML 2 ML VIAL ONE ×2 (14:14→15:57)
[2024-06-25] MEDS ORDERED: LIDOCAINE 2% 2 ML VIAL/AMP(20MG/ML) INFIL ONE (14:14)
[2024-06-25] MEDS ORDERED: fentaNYL citrate PF 100 MCG/2 ML VIAL ONE ×2 (14:14→15:46)
[2024-06-25 14:38] LABS: Pregnancy Test, Serum Negative (Negative)
[2024-06-25] MEDS: ceFAZolin 2000MG 2,000 MG/15 ML SYR IV SCH (15:21)
[2024-06-25] MEDS ORDERED: ROCURONIUM BROMIDE 10 MG/ML 5 ML VIAL IV ONE (15:25)
[2024-06-25] MEDS ORDERED: SUCCINYLCHOLINE CHLORIDE 20 MG/ML 10 ML VIAL IV ONE (15:25)
[2024-06-25] MEDS ORDERED: HYDROmorphone INJ 2 MG/ML SYR/VIAL ONE (15:43)
[2024-06-25] MEDS ORDERED: KETOROLAC 30 MG/ML VIAL ONE (15:57)
[2024-06-25] MEDS ORDERED: IBUPROFEN 200 MG TAB PO PRN (16:02)
--- NOTE | 2024-06-25 16:02 | Operative Report ---
PG Post Operative Report Pre & Post Diagnosis Operation Date: 06/25/24 14:50 Pre-Op Diagnosis: Calculus of Kidney, Left Post-Op Diagnosis: Calculus of Kidney, Left I identified the patient and participated in the time-out.: Yes Procedure Operation Date: 06/25/24 14:50 Actual Procedures p Cystoscopy, Ureteronephroscopy, Basket Extraction of the Stone, Exchange of Stent Catheter - Left(Left) - Bud Fernandez MD Surgeon Bud Fernandez MD Supervisor Drawing None Estimated Blood Loss 0 Findings See Below Specimens Left ureteral stone for chemical analysis Urine from left kidney for culture Drains 6 Portuguese by 24 cm double-J ureteral stent in the left ureter Anesthesia Type General Complications none Disposition Accompanied Patient To Recovery: Yes Disposition: Recovery Room Indications This is a 49-year-old female followed by urology for nephrolithiasis. She presents to the OR for left ureteroscopy and stone removal. Description of Procedure The patient was identified in the holding area and informed consent was confirmed. She was marked on the left side, then was taken to the operating room where general anesthesia was initiated. She was placed in the dorsal lithotomy position with all pressure points appropriately padded. She was prepped and draped in the usual sterile fashion and a preoperative timeout was performed. A well-lubricated cystoscope was inserted per urethra and panendoscopy was performed. The urethra was normal with no strictures or mucosal abnormalities. Her bladder appeared grossly normal with no tumors or stones appreciated. Ureteral orifices were in orthotopic position bilaterally The end of the ureteral stent was visible from the left ureteral orifice. A pair of stent graspers was used to withdraw the stent to the urethral meatus. The stent was fairly encrusted. The stent was cut about the distal curl, then cannulated using a 0.038 inch zip wire which advanced easily up to the kidney under fluoroscopic guidance. The stent was removed. A second wire was advanced to the kidney. Over the second wire, the flexible ureteroscope was advanced and used to survey the ureter. In the proximal ureter there was a portion of clot with stone in that location. This was grasped with a wire basket and removed. The stone was sent for chemical analysis. Ureteroscope was then reinserted and used to survey the kidney. The urine in the kidney was somewhat cloudy appearing. It was unclear how well her stent had actually been draining leading up to surgery. This was aspirated and sent for culture. I opted not to perform further laser lithotripsy due to possibility of infection. Exit ureteroscopy identified no additional stones or obstructions in the ureter. The cystoscope was reinserted over the wire, then a 6 Portuguese x 24 centimeter double-J ureteral stent was advanced. When the wire was removed, the proximal curl was visualized in the kidney with x-ray, and the distal curl visualized in the bladder with the cystoscope. At this point the bladder was drained and all instrumentation was removed. The patient was then awakened from anesthesia and was brought to the PACU in stable condition. I attest to the content of the Intraoperative Record and any orders documented therein. Any exceptions are noted below.
[2024-06-25] MEDS ORDERED: ALBUTEROL HFA 8 GM INHALER INH ONE (16:08)
[2024-06-25] MEDS ORDERED: CEFEPIME 1000MG 1,000 MG/10 ML SYR IV SCH (16:30)
--- NOTE | 2024-06-25 16:57 | Hospitalist Consultation ---
Date of Consultation June 25, 2024 Assessment & Plan (1) Complicated UTI (urinary tract infection): 49-year-old female with a history of asthma, prediabetes, hypertension, nephrolithiasis, anxiety/depression/bipolar/BPD who presented for surgical intervention of a left renal calculus with basket extraction and exchange of stent catheter. Erath is consulted for concerns of developing sepsis and management of medical comorbidities. ? Sepsis, suspected complicated UTI Meet sepsis criteria due to a leukocytosis of 18, tachycardia. She is hypoxic postanesthesia reports little shortness of breath and a sore throat postprocedure. Has had some fevers recently but does not currently feel feverish and is afebrile on assessment. On 2 L nasal cannula. Suspect with her stone extraction that this is likely urosepsis with possible transient bacteremia and sore throat is due to right device however she meets criteria has had some preceding fevers and sore throat with some shortness of breath will include chest x-ray and quad screen and workup. Per protocol blood cultures have been ordered. Target IBW fluid resuscitation 1600 cc, patient is not hypotensive. She is tachycardic. No history of CHF. Given hypoxia and borderline criteria for sepsis with normotension and crackles will give LR 1L IV bolus x 1, then reassess for additional based on lactate, x-ray, and progression S/p left stone extraction 06/25 Creatinine approximately 1.1 at baseline. Cr at baseline on recheck. Postoperatively tachycardic at 102, BP 146/89 - Some fevers per history, afebrile on chart review Operative urine culture pending. UA pending Patient covered empirically for potential complicated UTI in the setting of stone removal with Zosyn given past resistant E. coli cultures + amp sensivite Enterococcus. Narrow based on cultures when available Past microbiology results: Urine culture, E. coli 04/2024: Resistant to ceftriaxone, Unasyn, Augmentin, cefazolin. Sensitive to fluoroquinolones, ertapenem, cefepime, meropenem Urine culture, E. coli 02/2024. Resistant to Unasyn/Augm entin/ceftriaxone/cefuroxime. Urine culture 02/05, E. coli pansensitive; Enterococcus faecalis ampicillin sensitive. History of asthma No overt wheezing on exam. Trace basilar crackles? Atelectasis postprocedure. She is not hypoxic and is saturating normally on room air Lower suspicion for pneumonia. She also missed her Breo this morning Breo ordered. Continue incentive spirometry. XR pending DuoNebs as needed Prediabetes Metformin held while inpatient, anticipate this can be resumed on discharge Hypertension Continue lisinopril Chronic stable issues: PCOS: Cysts previously noted. Can resume metformin on discharge Bipolar/anxiety/depression/BPD: Continue hydroxyzine, lurasidone, melatonin, oxycarbamazepine, topiramate. Benefit from discontinuing topiramate due to recurrent nephrolithiasis recommend she follow-up with her psychiatrist for medication adjustments Fibromyalgia/chronic back pain: Continue Flexeril, gabapentin, meloxicam. Ibuprofen discontinued while also on Mobic. GERD: Continue Pepcid Hypothyroidism: Continue Synthroid DVT prophylaxis: SCDs, Lovenox Disposition: Med/telemetry CODE STATUS: Full code Diet: Heart healthy (2) Bilateral hydronephrosis: (3) Hypertension: (4) RAJEEV (obstructive sleep apnea): (5) DALLAS (generalized anxiety disorder): (6) Prediabetes: (7) Bipolar 2 disorder, major depressive episode: (8) UTI (urinary tract infection): History of Present Illness Attending Physician: Bud Fernandez MD History of Present Illness Mrs. Banerjee is a 49-year-old female with a past medical history of nephrolithiasis, bee venom anaphylaxis, suicidal ideation, RAJEEV, asthma, D[place]AS, bipolar 2, fibromyalgia, PTSD, migraine, GERD, hypothyroidism who presented to the emergency department for management of a obstructive left renal calculus and is s/p cystoscopy/utero nephroscopy/basket extraction/left stent catheter exchange. No blood loss however patient was with transient hypotension, tachycardic, intermittently with low-grade fevers with concern for possible developing sepsis. We have been consulted for medical comanagement and management of potential complicated UTI Mrs. Banerjee is seen at the bedside in PACU. Somewhat groggy from anesthesia, reports she has a slightly hoarse throat. She reports she has felt a little bit feverish lately although none currentlyno shaking chills or night sweats. Endorses sore throat and improving but slight shortness of breath noting she missed her Breo for her asthma this morning. denies dysuria, polyuria. She reports she will need some form of diaper or pad as she is on her period and does not have close with her to stay in the hospital. She reports her periods are regular, has not had any prolonged periods abnormal bleeding or excessive pain. No lightheadedness or dizziness. She reports her heart rate is typically normal. She reports she came in for management of a stone. She has some chronic back pain but she denies new back pain or flank pain at time of assessment. No abdominal pain. No dysuria, she does not have a [place] present. She does have a history of asthma and did not use her Breo this morning. No other concerns. No cough. Some sore throat and mild dyspnea. Normal oxygen saturation on room air Has had some fevers recently although afebrile on chart review. She does not use tobacco products or alcohol She is allergic to bee venom. Has a hallucination reaction to morphine. Denies other medication allergies. Specifically reports that she thinks she has tolerated penicillin in the past and does not have a known penicillin allergy. Full code. Surrogate decision making would be her mother who is listed as her emergency contact. Allergies Allergy/AdvReac Type Severity Reaction Status Date / Time bee venom protein (honey bee) Allergy Severe ANAPHYLAXIS Verified 06/25/24 13:21 tomato Allergy Intermediate Hives Verified 06/25/24 13:21 morphine AdvReac Intermediate HALLUCINATI Verified 06/25/24 13:21 ONS Home Medications Medication Instructions Recorded Confirmed Type fluticasone propionate 50 2 spray intranasal DAILY PRN 01/10/18 06/25/24 History mcg/actuation nasal Allergy Symptoms spray,suspension (Flonase Allergy Relief) rizatriptan 10 mg tablet (Maxalt) 10 mg PO UD PRN Migraine Headache 01/10/18 06/25/24 History Lactobacillus comb 1 cap PO QAM 10/14/18 06/25/24 History no.[id number] 300 million cell-250 mg capsule (Probiotic and Acidophilus) magnesium oxide 400 mg PO QAM 04/07/19 06/25/24 History ondansetron 4 mg disintegrating 4 mg PO Q8H PRN Nausea 08/08/19 06/25/24 History tablet cyanocobalamin (vitamin B-12) 1,000 mcg PO QAM 02/14/20 06/25/24 History 1,000 mcg tablet (Vitamin B-12) vitamin B complex 1 tab PO QAM 02/22/22 06/25/24 History sennosides 8.6 mg tablet (Senokot) 17.2 mg (2 x 8.6 mg) PO QAM PRN 02/27/22 06/25/24 Rx constipation #30 tabs albuterol sulfate 2.5 mg/3 mL 2.5 mg continuous nebulization Q4H 03/28/22 06/25/24 History (0.083 %) solution for nebulization PRN Shortness Of Breath Or Wheezing cholecalciferol (vitamin D3) 125 5,000 unit PO DAILY 07/12/22 06/25/24 History mcg (5,000 unit) capsule cranberry 500 mg capsule 125 mg PO QAM 08/23/22 06/25/24 History topiramate 200 mg tablet (Topamax) 200 mg PO BID #180 tabs 09/20/22 06/25/24 Rx docusate sodium 100 mg capsule 100 mg PO QAM 02/08/23 06/25/24 History levothyroxine 50 mcg tablet 50 mcg PO QAM #90 tabs 12/26/23 06/25/24 Rx meloxicam 7.5 mg tablet 15 mg (2 x 7.5 mg) PO DAILY PAIN 12/26/23 06/25/24 Rx #90 tabs lidocaine 4 % topical patch 1 patch topical DAILY PRN Pain 01/01/24 06/25/24 History epinephrine 0.3 mg/0.3 mL 0.3 mg (0.3 mL) IM DIRECTED PRN 01/24/24 06/25/24 Rx injection, auto-injector (EpiPen) Severe Allergic Reaction #2 ea famotidine 20 mg tablet 20 mg PO DAILY #90 tabs 01/31/24 06/25/24 Rx metformin 500 mg tablet,extended 500 mg PO QPM #100 tabs 02/14/24 06/25/24 Rx release 24 hr dicyclomine 20 mg tablet 20 mg PO BID 3 months #180 tabs 02/28/24 06/25/24 Rx tamsulosin 0.4 mg capsule 0.4 mg PO QAM #30 caps 05/05/24 06/25/24 Rx cyclobenzaprine 10 mg tablet 10 mg PO BID #180 tabs 05/06/24 06/25/24 Rx pantoprazole 40 mg tablet,delayed 40 mg PO QAM #90 tabs 05/06/24 06/25/24 Rx release (Protonix) hydroxyzine HCl 50 mg tablet 100 mg PO HS Anxiety 05/08/24 06/25/24 History lurasidone 20 mg tablet (Latuda) 20 mg PO QPM 05/08/24 06/25/24 History oxcarbazepine 150 mg tablet 450 mg PO BID 05/08/24 06/25/24 History prazosin 2 mg capsule 4 mg PO HS 05/08/24 06/25/24 History oxycodone 5 mg tablet 5 mg PO Q8H PRN pain #9 tabs 05/09/24 06/25/24 Rx ketorolac 10 mg tablet 10 mg PO Q8H PRN pain #10 tabs 05/15/24 06/25/24 Rx oxybutynin chloride 5 mg 5 mg PO DAILY #10 tabs 05/15/24 06/25/24 Rx tablet,extended release 24 hr phenazopyridine 200 mg tablet 200 mg PO Q8H PRN pain #6 tabs 05/15/24 06/25/24 Rx (Pyridium) lisinopril 5 mg tablet 5 mg PO QAM #100 tabs 05/19/24 06/25/24 Rx gabapentin 800 mg tablet 800 mg PO TID #90 tabs 05/20/24 06/25/24 Rx sulfamethoxazole 800 1 tab PO BID #14 tabs 06/12/24 06/25/24 Rx mg-trimethoprim 160 mg tablet (Bactrim DS) albuterol sulfate 90 mcg/actuation 2 puff inhalation QID PRN sob 06/17/24 06/25/24 History aerosol inhaler fluticasone furoate 100 1 inh inhalation QAM 06/17/24 06/25/24 History mcg-vilanterol 25 mcg/dose inhalation powder (Breo Ellipta) cetirizine 10 mg tablet (Zyrtec) 10 mg PO DAILY #90 tabs 06/18/24 06/25/24 Rx sulfamethoxazole 800 1 tab PO BID 5 days #10 tabs 06/25/24 Rx mg-trimethoprim 160 mg tablet (Bactrim DS) Patient History Medical History (Updated 06/25/24 @ 17:24 by Dennis Cosme MD) Obesity Kidney stone Hypothyroidism PTSD (post-traumatic stress disorder) Fibromyalgia Peripheral neuropathy PCOS (polycystic ovarian syndrome) Gastroparesis Chronic back pain DALLAS (generalized anxiety disorder) Vitamin D deficiency Migraine IBS (irritable bowel syndrome) Environmental and seasonal allergies Allergic rhinitis Borderline personality disorder Hx of upper respiratory infection 07/2023- resolved HTN (hypertension) Polycystic kidney disease renal cysts seen on imaging; Urology following UTI (urinary tract infection) hx recurrent UTI; has active UTI; started Abx 06/17/24 Pre-diabetes metformin daily Small fiber neuropathy Bipolar 2 disorder History of anemia as a child Hx of Clostridium difficile infection end of 2021, tx w/abx. History of COVID-19 07/25/20>not hospitalized>"mild">resolved Suicidal ideation patient denies current or active SI/plan Pyelonephritis hx Hx of sepsis hospitalized at [facility] Feb 2022 for this > resolved per pt Hydronephrosis due to obstruction of ureter hx Right ureteral calculus hx Complicated bereavement hx Depression with suicidal ideation patient denies current or active SI/plan Chest pain "none recently"; saw [facility] cardio and had negative stress 2020; per Cardio, sx attributed to GI etiology and anxiety Poor historian Hx of prolonged Q-T interval on ECG PER PT'S MEDICAL RECORD FROM PCP OFFICE. Fibroadenoma of breast RT Asthma well controlled with daily inhaler use, prn inhaler, denies recent exacerbation Closed head injury R/T FALL IN 2016; REPORTS CONCUSSION>"still gets very tired in the afternoon" E. coli septicemia hx- 2016 Surgical History S/P ureteral stent placement cysto, L stent 05/01/24: MAC without issue Hx of basal cell carcinoma excision nose S/P cystoscopy with ureteral stent placement w/laser destruction kidney stone History of esophagogastroduodenoscopy (EGD) Status post labral repair of shoulder RT History of breast biopsy RT H/O lithotripsy History of cystoscopy Hx of shoulder surgery Hx of colonoscopy Hx of knee surgery RT History of ankle surgery RT Hx of cholecystectomy Family History Father Heart disease Other No significant family history Social History Smoking Status: Never smoker Second Hand Exposure: No; Do You Dip or Chew Tobacco: No; Tobacco Cessation Education Requested by Patient: No Hx Alcohol Use: No Hx Substance Use: No Preferred Language: Greek Communication Ability: Effective Visual Impairment: Limited Hearing Ability: Use of Hearing Aid Silviculture Teacher Required: No Beliefs That Will Affect Care: None marital status: Single Current Living Situation: Parent Current Living Situation Comment: pt lives with her mother current occupational status: disabled How many Children do You have: 0 Other Information That Helps Us Care for You: No Feels Safe at Home: Yes Safety Concerns: Feels Safe At This Time Childhood Exposure to Second-Hand Smoke: No Diet: regular caffeine: Yes during the past year weight has: remained stable Dental Care, Regularly: Yes Physical Activity Frequency: Daily Seatbelt Use: always Sunscreen Use: Yes Gender Identity: Female Assistive Devices: Denture - Lower, Glasses, Hearing Aid - Bilateral and Nebulizer Assistive Devices Comment: partials Physical Exam Physical Exam: General: A&Ox3. NAD. Cooperative. Appears slightly sedated but answers questions appropriately HEENT: Atraumatic, normocephalic. Vision and hearing grossly intact. Hoarse voice Pulm: Slightly diminished with trace basilar crackles. Symmetrical chest rise. No increased work of breathing. No respiratory distress. Cardiac: Regular, tachycardic, -mrg. Radial pulses intact and symmetrical. Abdominal: Nontender, nondistended, soft. BS present. Extremities: Warm and dry Results & Data Results & Data Vital Signs (Past 12 Hours) Vital Signs Temp Pulse Resp BP Pulse Ox O2 Del Method O2 Flow Rate 06/25/24 16:35 119 H 19 115/81 95 Oxymask 8 06/25/24 16:25 121 H 14 117/74 95 Oxymask 10 06/25/24 16:16 37.3 C 126 H 12 117/60 95 Oxymask 10 06/25/24 13:26 37 C 102 H 18 146/89 H 96 Room Air PG Care Time/CCT Total # of Minutes Spent Total Time Spent with Patient: Total time spent is greater than 50% in coordination of care (as documented) at patient's floor/unit and/or counseling patient: Coding Level of Care Code 80424 IN/OBS CONSULT LVL 5,80M Diagnoses Complicated UTI (urinary tract infection) N39.0 Bilateral hydronephrosis N13.30 Hypertension I10 RAJEEV (obstructive sleep apnea) G47.33 DALLAS (generalized anxiety disorder) F41.1 Prediabetes R73.03 Bipolar 2 disorder, major depressive episode F31.81 UTI (urinary tract infection) N39.0
[2024-06-25 17:36] LABS: Basophils % (auto) 0.6 %; Eosinophils # (auto) 0.24 K/uL (0.00-0.50); Eosinophils % (auto) 1.3 %; Hematocrit (blood only) 34.3 % (37.0-47.0); Hemoglobin 11.5 g/dl (12.0-16.0); Immature Granulocytes # (auto) 0.14 K/uL (0.01-0.20); Immature Granulocytes % (auto) 0.8 %; Lymphocytes # (auto) 1.57 K/uL (1.20-3.40); Lymphocytes % (auto) 8.7 %; Mean Corpuscular Hemoglobin 30.9 pg (25.0-34.0); Mean Corpuscular Hgb Conc 33.5 g/dL (32.0-36.0); Mean Corpuscular Volume 92.2 fL (80.0-100.0); Mean Platelet Volume 9.1 fL (9.4-12.4); Monocytes # (auto) 0.53 K/uL (0.11-0.59); Monocytes % (auto) 2.9 %; Neutrophils # (auto) 15.44 K/uL (1.40-6.50); Neutrophils % (auto) 85.7 %; Platelet Count 342 K/uL (130-400); RDW Coefficient of Variation 12.5 % (11.5-14.5); RDW Standard Deviation 42.1 fL (36.4-46.3); Red Blood Count 3.72 M/uL (4.20-5.40); White Blood Count 18.02 K/ul (4.8-10.8)
[2024-06-25 17:50] LABS: BUN Creatinine Ratio 31.9 (10-20); Calcium 9.2 mg/dl (8.6-10.3); Creatinine Clr Calc Pharmacy 64.2 ml/min; Potassium 4.1 mmol/L (3.5-5.1)
[2024-06-25] MEDS ORDERED: SENNA 8.6 MG TAB PO PRN (17:52)
[2024-06-25] MEDS ORDERED: ALBUTEROL 0.083% NEBU SOLN 3 ML VIAL NEB PRN (17:52)
[2024-06-25] MEDS ORDERED: ONDANSETRON INJ 2 MG/ML 2 ML VIAL IV PRN (17:52)
[2024-06-25] MEDS ORDERED: ALBUTEROL HFA 8 GM INHALER INH PRN (17:52)
[2024-06-25] MEDS ORDERED: FLUTICASONE PROPIONATE NA SPR 16 GM BTL PRN (17:52)
[2024-06-25] MEDS ORDERED: RIZATRIPTAN BENZOATE 10 MG TAB PO PRN (17:52)
[2024-06-25] MEDS ORDERED: ONDANSETRON 4 MG OD TAB PO PRN (17:52)
--- NOTE | 2024-06-25 18:26 | XRay Report ---
Clinical History: Hypoxia. Leukocytosis Technique: A frontal view of the chest was obtained Comparison is made to the prior examination dated 02/23/2022 Findings: There are no definite pulmonary infiltrates. The heart size is within normal limits. No pleural effusion or pneumothorax is seen. There is linear atelectasis in the right midlung. There is suspected mild left lung base atelectasis also. No fracture is noted. No foreign body is seen Impression: Apparent mild atelectasis in the right midlung and left lung base Electronically signed by Nick Marroquin 06-25-2024 6:25 PM
--- NOTE | 2024-06-25 19:35 | Anesthesiology Progress Note ---
Date of Service June 25, 2024 Anesthesia Post Procedure Vital Signs Vital Signs: Temp Pulse Resp BP Pulse Ox O2 Del Method O2 Flow Rate 06/25/24 18:40 36.2 C L 108 H 127/65 96 Room Air 06/25/24 18:30 108 H 14 125/69 96 Nasal Cannula 2 06/25/24 18:10 108 H 17 132/85 96 Nasal Cannula 2 06/25/24 17:55 102 H 23 121/88 95 Nasal Cannula 2 06/25/24 17:40 109 H 16 114/85 95 Nasal Cannula 2 06/25/24 17:25 36.7 C 108 H 14 120/73 97 Nasal Cannula 2 06/25/24 17:15 115 H 20 109/89 89 L Room Air 06/25/24 17:05 108 H 15 145/84 H 93 Room Air 06/25/24 16:55 116 H 13 120/85 94 Oxymask 6 06/25/24 16:45 119 H 21 119/74 95 Oxymask 8 06/25/24 16:35 119 H 19 115/81 95 Oxymask 8 06/25/24 16:25 121 H 14 117/74 95 Oxymask 10 06/25/24 16:16 37.3 C 126 H 12 117/60 95 Oxymask 10 06/25/24 13:26 37 C 102 H 18 146/89 H 96 Room Air Pain Intensity Left Flank: Pain Intensity: 5 Transfer of Care Handoff Completed per policy Notes Mental Status: alert / awake / arousable and participated in evaluation Patient Amnestic to Procedure: Yes Nausea / Vomiting: adequately controlled Pain: adequately controlled Airway Patency, RR, SpO2: stable & adequate BP & HR: stable & adequate Hydration State: stable & adequate Anesthetic Complications: no major complications apparent and Pt Satisfied with anesthetic care
[2024-06-25] MEDS: PIPERACILLIN/TAZOBACTAM 4.5 GM/100 ML BAG IV ONE (19:38)
[2024-06-25] MEDS: LACTATED RINGER'S 1,000 ML IV ONE ×2 (19:39→22:39)
[2024-06-25] MEDS: DICYCLOMINE HCL 20 MG TAB PO SCH (20:59)
[2024-06-25] MEDS: PRAZOSIN HCL 1 MG CAP PO SCH (20:59)
[2024-06-25] MEDS: FLUTICASONE/VILANTEROL 100/25MCG 14 PUFFS/INHALER INH SCH (20:59)
[2024-06-25] MEDS: OXcarbazepine 150 MG TABLET PO SCH (20:59)
[2024-06-25] MEDS: GABAPENTIN 800 MG TAB PO SCH (20:59)
[2024-06-25] MEDS: TOPIRAMATE 100 MG TAB PO SCH (20:59)
[2024-06-25] MEDS: hydrOXYzine HCl 25 MG TAB PO SCH (20:59)
[2024-06-25] MEDS: LURASIDONE HCL 20 MG TAB PO SCH (20:59)
[2024-06-25] MEDS: CYCLOBENZAPRINE HCL 10 MG TAB PO SCH (20:59)
[2024-06-25] MEDS: oxyCODONE HCL IR 5 MG TAB (IMMEDIATE RELEASE) PO PRN (22:00)
[2024-06-25] MEDS: LACTATED RINGER'S 500 ML IV ONE (22:40)
[2024-06-25 23:01] LABS: Influenza A virus by PCR Negative (Neg); Influenza B virus by PCR Negative (Neg); RSV by PCR Negative (Neg); SARS CoV2 RNA(COVID-19) Ceph NEGATIVE (Negative)
[2024-06-25 23:09] LABS: Appearance Urine Cloudy (Clear); Bacteria Urine Automated 1+ (None Seen); Bilirubin Urine Negative (Negative); Blood Urine 3+ (Negative); Color Urine Yellow; Epithelial Cell Urine Auto 0-2 /hpf (0-2); Glucose Urine UA Negative (Negative); Ketones Urine Negative (Negative); Leukocyte Esterase Urine 3+ (Negative); Nitrite Urine Negative (Negative); Protein Urine 1+ (Negative); RBC Urine Automated >20 /hpf (0-2); Specific Gravity Urine 1.008 (1.000-1.030); Urobilinogen Urine Negative (Negative); WBC Urine Automated >50 /hpf (0-5)
[2024-06-26] MEDS: PIPERACILLIN/TAZOBACTAM 4.5 GM/100 ML BAG IV SCH (00:24)
[2024-06-26] MEDS ORDERED: CARBOHYDRATES FOR HYPOGLYCEMIA PO PRN (06:14)
[2024-06-26] MEDS ORDERED: DEXTROSE 50% 50 ML SYRINGE IV PRN (06:14)
[2024-06-26] MEDS ORDERED: GLUCOSE 40% GEL 15 GM TUBE PO PRN (06:14)
[2024-06-26] MEDS ORDERED: PHARMACY GLYCEMIC MGMT CONSULT PRN (06:14)
[2024-06-26] MEDS ORDERED: GLUCAGON FOR INJ 1 MG VIAL SQ PRN (06:14)
[2024-06-26] MEDS ORDERED: GLUCOSE 10 TAB/TUBE PO PRN (06:14)
[2024-06-26 06:15] LABS: Basophils # (auto) 0.07 K/uL (0.00-0.20); Basophils % (auto) 0.5 %; Eosinophils % (auto) 0.7 %; Hematocrit (blood only) 29.2 % (37.0-47.0); Hemoglobin 9.9 g/dl (12.0-16.0); Immature Granulocytes # (auto) 0.11 K/uL (0.01-0.20); Immature Granulocytes % (auto) 0.8 %; Lymphocytes # (auto) 2.17 K/uL (1.20-3.40); Lymphocytes % (auto) 14.8 %; Mean Corpuscular Hemoglobin 31.3 pg (25.0-34.0); Mean Corpuscular Hgb Conc 33.9 g/dL (32.0-36.0); Mean Corpuscular Volume 92.4 fL (80.0-100.0); Mean Platelet Volume 9.1 fL (9.4-12.4); Monocytes # (auto) 1.07 K/uL (0.11-0.59); Monocytes % (auto) 7.3 %; Neutrophils # (auto) 11.11 K/uL (1.40-6.50); Neutrophils % (auto) 75.9 %; Platelet Count 330 K/uL (130-400); RDW Coefficient of Variation 12.5 % (11.5-14.5); RDW Standard Deviation 41.7 fL (36.4-46.3); Red Blood Count 3.16 M/uL (4.20-5.40); White Blood Count 14.63 K/ul (4.8-10.8)
[2024-06-26] MEDS: LEVOTHYROXINE SODIUM 50 MCG TABLET PO SCH (06:18)
[2024-06-26 06:35] LABS: BUN Creatinine Ratio 24.6 (10-20); Calcium 8.6 mg/dl (8.6-10.3); Creatinine Clr Calc Pharmacy 64.8 ml/min; Potassium 4.1 mmol/L (3.5-5.1)
--- NOTE | 2024-06-26 08:08 | Fluoroscopy Report ---
[place] [facility] CLINICAL HISTORY: LEFT STENT EXCHANGE COMPARISON STUDY: None pertinent FLUOROSCOPY TIME: 8 seconds FLUOROSCOPY IMAGES: None EXPOSURE DOSE: 2.78 mGy FINDINGS: Fluoroscopic guidance IMPRESSION: Endoscopic guidance ACT 112: Negative or not required by law. Electronically signed by: Tari Hollis M.D. 06/26/2024 8:06 AM
[2024-06-26] MEDS: LACTATED RINGER'S 1,000 ML IV SCH (08:45)
[2024-06-26] MEDS: OXYBUTYNIN CHLORIDE XL 5 MG TABCR PO SCH (08:47)
[2024-06-26] MEDS: lisinopril 5 MG TAB PO SCH (08:47)
[2024-06-26] MEDS: MELOXICAM 7.5 MG TAB PO SCH (08:48)
[2024-06-26] MEDS: CETIRIZINE HCL 10 MG TABLET PO SCH (08:48)
[2024-06-26] MEDS: PANTOprazole 40 MG TAB PO SCH (08:49)
[2024-06-26] MEDS: ENOXAPARIN INJ 40 MG/0.4 ML SYR SQ SCH (08:52)
[2024-06-26] MEDS: FAMOTIDINE 20 MG TAB PO SCH ×2 (08:53→20:16)
[2024-06-26] MEDS: MAGNESIUM OXIDE 400 MG TAB PO SCH (08:53)
[2024-06-26] MEDS: TAMSULOSIN HCL 0.4 MG CAP PO SCH (08:53)
[2024-06-26] MEDS: DOCUSATE SODIUM 100 MG CAP PO SCH (08:57)
[2024-06-26] MEDS: INSULIN ASPART PER UNIT CHARGE SC SCH (09:06)
--- NOTE | 2024-06-26 09:48 | Hospitalist Progress Note ---
Date of Service June 26, 2024 Assessment & Plan (1) Complicated UTI (urinary tract infection): Plan: 49-year-old female with a history of asthma, prediabetes, hypertension, nephrolithiasis, anxiety/depression/bipolar/BPD who presented for surgical intervention of a left renal calculus with basket extraction and exchange of stent catheter. Waldo is consulted for concerns of developing sepsis and management of medical comorbidities. Sepsis, complicated UTI Meet sepsis criteria due to a leukocytosis of 18, tachycardia. She is hypoxic postanesthesia reports little shortness of breath and a sore throat postprocedure. Has had some fevers recently but does not currently feel feverish and is afebrile on assessment. Suspect with her stone extraction that this is likely urosepsis with possible transient bacteremia Chest x-ray with atelectasis no evidence of superimposed pneumonia, aspiration, or pulmonary edema. Quad screen negative. Hypoxia resolved with supportive care, continue incentive spirometry everyevery 4 hours Patient received 2.5 L LR boluses following lactate with uptrend, tachycardia resolved and lactate normalized. Somewhat soft blood pressure this morning although improved on recheck and clinically asymptomatic. Additional maintenance fluids ordered, p.o. encouraged S/p left stone extraction 06/25 UA infected appearing. UCx pending. BC pending Patient covered empirically for potential complicated UTI in the setting of stone removal with Zosyn given past resistant E. coli cultures + amp sensivite Enterococcus. Clinically improved to 06/26 Continue Zosyn every 8 hours, narrow based on cultures when available Past microbiology results: Urine culture, E. coli 04/2024: Resistant to ceftriaxone, Unasyn, Augmentin, cefazolin. Sensitive to fluoroquinolones, ertapenem, cefepime, meropenem Urine culture, E. coli 02/2024. Resistant to Unasyn/Augmentin/ceftriaxone/cefuroxime. Urine culture 02/05, E. coli pansensitive; Enterococcus faecalis ampicillin sensitive. History of asthma Chest x-ray with mild atelectasis no fluid overload or pneumonia or evidence of aspiration Continue home inhalers DuoNebs as needed Continue incentive spirometry Prediabetes Metformin held while inpatient Hyperglycemic overnight, SSI added. Goal BSG [id number] Hypertension Lisinopril held until BP normalizes Chronic stable issues: PCOS: Cysts previously noted. Can resume metformin on discharge Bipolar/anxiety/depression/BPD: Continue hydroxyzine, lurasidone, melatonin, oxycarbamazepine, topiramate. Benefit from discontinuing topiramate due to recurrent nephrolithiasis recommend she follow-up with her psychiatrist for medication adjustments Fibromyalgia/chronic back pain: Continue Flexeril, gabapentin, meloxicam. Ibuprofen discontinued while also on Mobic. GERD: Continue Pepcid Hypothyroidism: Continue Synthroid DVT prophylaxis: SCDs, Lovenox Disposition: Med/telemetry CODE STATUS: Full code Diet: Heart healthy (2) Bilateral hydronephrosis: (3) Hypertension: (4) RAJEEV (obstructive sleep apnea): (5) [place] (generalized anxiety disorder): (6) Prediabetes: (7) Bipolar 2 disorder, major depressive episode: (8) UTI (urinary tract infection): Admission and Anticipated Discharge Date Admission Date: June 25, 2024 Subjective Mrs. Banerjee is seen at bedside this morning. She is awake, alert, pleasant, and conversational. Sedation has resolved. She is not tachycardic. Lungs are clear. She reports she does have some left-sided flank discomfort and mild abdominal pain during this post procedure, she is voiding normally and denies dysuria. She felt a little cold last night but denies chills/shaking chills/rigors/fevers. She is not short of breath. Did receive a total of 2.5 L boluses last night for tachycardia and sepsis with elevated lactate. She does not have any lightheadedness/dizziness. Slightly soft blood pressure this morning asymptomatic with this and has been continued for maintenance fluids with oral intake encouraged. Was curious about the crackles heard on exam yesterday, and will use incentive spirometer today. No other questions or concerns at bedside. Seen in conjunction with the nursing staff/joint rounding Physical Exam Physical Exam: General: A&Ox3. NAD. Cooperative. Appears slightly sedated but answers questions appropriately HEENT: Atraumatic, normocephalic. Vision and hearing grossly intact. Forced voice has resolved. Pulm: Slightly diminished, previously noted basilar crackles have resolved. Symmetrical chest rise. No increased work of breathing. No respiratory distress. Cardiac: Regular rate and rhythm, -mrg. Radial pulses intact and symmetrical. Abdominal: Mild left CVA tenderness to percussion, left lower quadrant abdominal discomfort without rebound/involuntary guarding Extremities: Warm and dry Results & Data Results & Data Vital Signs (Past 12 Hours) Vital Signs Temp Pulse Pulse Resp BP BP Pulse Ox 06/26/24 08:00 89 06/26/24 07:56 36.7 C 78 16 99/62 L 96 06/26/24 04:22 36.7 C 96 H 20 100/59 L 93 06/26/24 00:00 103 H 06/25/24 22:09 36.5 C 102 H 20 106/60 94 O2 Del Method 06/26/24 08:00 06/26/24 07:56 Room Air 06/26/24 04:22 Room Air 06/26/24 00:00 06/25/24 22:09 Room Air PG Care Time/CCT Total # of Minutes Spent Total Time Spent with Patient: Total time spent is greater than 50% in coordination of care (as documented) at patient's floor/unit and/or counseling patient: Coding Level of Care Code 94041 SUB INP/OBS CARE 3/50MIN Diagnoses Complicated UTI (urinary tract infection) N39.0 Bilateral hydronephrosis N13.30 Hypertension I10 RAJEEV (obstructive sleep apnea) G47.33 [place] (generalized anxiety disorder) F41.1 Prediabetes R73.03 Bipolar 2 disorder, major depressive episode F31.81 UTI (urinary tract infection) N39.0
--- NOTE | 2024-06-26 10:38 | Pharmacy Report ---
Pharmacy Glycemic Short Note 2 - Date of Service June 26, 2024 - Glycemic Short BSG Results (Last 24 hours): 06/25/24 06/25/24 06/25/24 13:06 17:16 20:54 Glucose 126 H POC Glucose 108 H 240 H 06/26/24 06/26/24 05:18 08:30 Glucose 105 H POC Glucose 106 H OUTPATIENT ANTIDIABETIC REGIMEN: * Metformin 500 mg PO qPM HbA1c: 5.5% (03/13/24) ASSESSMENT: * CJ is a 49 year old female w/ prediabetes admitted for treatment of complicated UTI * POD #1 s/p cystoscopy, ureteronephroscopy w/ extraction of stone and exchange of stent catheter * Received 8 mg IV dexamethasone in OR yesterday, no ongoing steroids * Receiving IV Zosyn and LR at 125 mL/hr * Will maintain carb ratio for now, but patient will likely not require ongoing once further removed from steroids * Lunch blood sugar now 95 mg/dL, will d/c carb ratio and utilize correctional insulin only for now PLAN FOR INPATIENT GLYCEMIC CONTROL: * Hold outpatient oral diabetes medications * Basal insulin * hold basal * Bolus insulin * NovoLog per scale ACHS or Q6hrs while NPO * Goal Range: Low 120 mg/dL - High 150 mg/dL * Correction Factor: 30 mg/dL/unit * Hold carb ratio at this time
--- NOTE | 2024-06-26 11:32 | Urology Progress Note ---
Date of Service June 26, 2024 Assessment & Plan (1) Complicated UTI (urinary tract infection): Plan: Urine and blood cultures pending. We will continue Zosyn and await final results. Clinically she seems to be responding well. (2) Ureterolithiasis: Plan: Ureteral stone was removed. Stent remains in place and should be providing good source control for infection. We will tentatively plan on removing the stent about a week as an outpatient. Plan Overall we will plan to continue supportive care with antibiotics today and await culture results. No plan for additional surgical intervention at this time. Appreciate medicine assistance. Admission and Anticipated Discharge Date Admission Date: June 25, 2024 Subjective Feeling well this morning Tolerating a diet with no nausea or vomiting [place] cool overnight but no measured fevers. WBC improving (14.6 down from 18.0) blood and urine cultures still pending, remains on Zosyn. Physical Exam Physical Exam: Well-appearing Ambulating in halls Results & Data Vital Signs (Past 12 Hours) Vital Signs Temp Pulse Pulse Resp BP BP Pulse Ox 06/26/24 08:00 89 06/26/24 07:56 36.7 C 78 16 99/62 L 96 06/26/24 04:22 36.7 C 96 H 20 100/59 L 93 06/26/24 00:00 103 H O2 Del Method 06/26/24 08:00 06/26/24 07:56 Room Air 06/26/24 04:22 Room Air 06/26/24 00:00 PG Care Time/CCT Total # of Minutes Spent Total Time Spent with Patient: Total time spent is greater than 50% in coordination of care (as documented) at patient's floor/unit and/or counseling patient: Coding Level of Care Code 76449 SUB INP/OBS CARE 05/09MIN Diagnoses Complicated UTI (urinary tract infection) N39.0 Ureterolithiasis N20.1
[2024-06-26] MEDS: ACETAMINOPHEN 325 MG TAB PO PRN (12:58)
[2024-06-26] MEDS ORDERED: Nursing to Pharmacy Communication SCH (19:45)
[2024-06-26] MEDS: PHENAZOPYRIDINE HCL 200 MG TAB PO PRN (20:16)
[2024-06-27 06:35] LABS: Basophils # (auto) 0.09 K/uL (0.00-0.20); Eosinophils % (auto) 4.5 %; Hematocrit (blood only) 30.4 % (37.0-47.0); Hemoglobin 10.1 g/dl (12.0-16.0); Immature Granulocytes # (auto) 0.05 K/uL (0.01-0.20); Immature Granulocytes % (auto) 0.6 %; Lymphocytes # (auto) 2.86 K/uL (1.20-3.40); Lymphocytes % (auto) 32.5 %; Mean Corpuscular Hemoglobin 30.4 pg (25.0-34.0); Mean Corpuscular Hgb Conc 33.2 g/dL (32.0-36.0); Mean Corpuscular Volume 91.6 fL (80.0-100.0); Mean Platelet Volume 9.1 fL (9.4-12.4); Monocytes # (auto) 0.81 K/uL (0.11-0.59); Monocytes % (auto) 9.2 %; Neutrophils # (auto) 4.59 K/uL (1.40-6.50); Neutrophils % (auto) 52.2 %; Platelet Count 308 K/uL (130-400); RDW Coefficient of Variation 12.5 % (11.5-14.5); RDW Standard Deviation 41.3 fL (36.4-46.3); Red Blood Count 3.32 M/uL (4.20-5.40)
[2024-06-27 07:04] LABS: BUN Creatinine Ratio 21.1 (10-20); Calcium 8.9 mg/dl (8.6-10.3); Creatinine Clr Calc Pharmacy 60.2 ml/min
--- NOTE | 2024-06-27 09:47 | Urology Progress Note ---
Date of Service June 27, 2024 Assessment & Plan (1) Ureterolithiasis: (2) Complicated UTI (urinary tract infection): Plan Doing well this morning, recovering appropriately s/p ureteroscopy and stone removal. We will await urine cultures/blood cultures, narrow coverage as more data becomes available. If cultures are negative, we will plan on discharge home tomorrow on 5 days of oral antibiotics. Appreciate medicine involvement Admission and Anticipated Discharge Date Admission Date: June 25, 2024 Subjective Feeling well this morning, tolerating a diet with no nausea or vomiting [place] a little hot/cold overnight, no measured fevers WBC improved to 8.8 this morning, Creatinine slightly up at 1.23, glucose 102. Blood cultures negative at 24 hours, urine cultures still pending, one with pinpoint growth, remains on Zosyn Physical Exam Physical Exam: Seated in bed, NAD Results & Data Vital Signs (Past 12 Hours) Vital Signs Temp Pulse Pulse Resp BP Pulse Ox O2 Del Method 06/27/24 08:07 36.6 C 87 18 112/74 95 Room Air 06/27/24 07:39 Room Air 06/27/24 06:54 75 06/27/24 04:00 36.6 C 69 18 128/82 95 Room Air 06/27/24 00:00 36.7 C 80 18 117/75 96 Room Air PG Care Time/CCT Total # of Minutes Spent Total Time Spent with Patient: Total time spent is greater than 50% in coordination of care (as documented) at patient's floor/unit and/or counseling patient: Coding Level of Care Code 76749 SUB INP/OBS CARE 05/09MIN Diagnoses Ureterolithiasis N20.1 Complicated UTI (urinary tract infection) N39.0
--- NOTE | 2024-06-27 10:26 | Hospitalist Progress Note ---
Date of Service June 27, 2024 Assessment & Plan (1) Complicated UTI (urinary tract infection): Plan: 49-year-old female with a history of asthma, prediabetes, hypertension, nephrolithiasis, anxiety/depression/bipolar/BPD who presented for surgical intervention of a left renal calculus with basket extraction and exchange of stent catheter. [place] is consulted for concerns of developing sepsis and management of medical comorbidities. Sepsis, complicated UTI. Sepsis resolved Meet sepsis criteria due to a leukocytosis of 18, tachycardia. She is hypoxic postanesthesia reports little shortness of breath and a sore throat postprocedure. Has had some fevers recently but does not currently feel feverish and is afebrile on assessment. Suspect with her stone extraction that this is likely urosepsis with possible transient bacteremia Chest x-ray with atelectasis no evidence of superimposed pneumonia, aspiration, or pulmonary edema. Quad screen negative. Hypoxia resolved with supportive care, continue incentive spirometry everyevery 4 hours S/p left stone extraction 06/25 Patient covered empirically for potential complicated UTI in the setting of stone removal with Zosyn given past resistant E. coli cultures + amp sensivite Enterococcus. BC no growth to date. Hemodynamically stable 06/27 Continue Zosyn every 8 hours, final antibiotic selection based on speciation. UCx currently with pinpoint growth pending reintubation. Given sepsis and clinical progression even if these are multiple mamadou/NG would treat for minimum 5-day course of antibiotics, would be reasonable to switch to ciprofloxacin at that time. This would not cover her Enterococcus history (intermediate resistance) however she has not had any culture+ of that since 2023 and passed E. coli isolates were sensitive to this. QT is not prolonged. Clinical deterioration a rapid improvement is more consistent with gram-negative infection Past microbiology results: Urine culture, E. coli 04/2024: Resistant to ceftriaxone, Unasyn, Augmentin, cefazolin. Sensitive to fluoroquinolones, ertapenem, cefepime, meropenem Urine culture, E. coli 02/2024. Resistant to Unasyn/Augmentin/ceftriaxone/cefuroxime. Urine culture 02/05, E. coli pansensitive; Enterococcus faecalis ampicillin sensitive. History of asthma Chest x-ray with mild atelectasis no fluid overload or pneumonia or evidence of aspiration Continue home inhalers DuoNebs as needed Continue incentive spirometry Prediabetes Metformin held while inpatient Hyperglycemic overnight, SSI added. Goal BSG [id number] Hypertension Lisinopril held until BP normalizes Chronic stable issues: PCOS: Cysts previously noted. Can resume metformin on discharge Bipolar/anxiety/depression/BPD: Continue hydroxyzine, lurasidone, melatonin, oxycarbamazepine, topiramate. Benefit from discontinuing topiramate due to recurrent nephrolithiasis recommend she follow-up with her psychiatrist for medication adjustments Fibromyalgia/chronic back pain: Continue Flexeril, gabapentin, meloxicam. Ibuprofen discontinued while also on Mobic. GERD: Continue Pepcid Hypothyroidism: Continue Synthroid DVT prophylaxis: SCDs, Lovenox Disposition: Med/telemetry CODE STATUS: Full code Diet: Heart healthy (2) Bilateral hydronephrosis: (3) Hypertension: (4) RAJEEV (obstructive sleep apnea): (5) DALLAS (generalized anxiety disorder): (6) Prediabetes: (7) Bipolar 2 disorder, major depressive episode: (8) UTI (urinary tract infection): Admission and Anticipated Discharge Date Admission Date: June 25, 2024 Subjective Seen at the bedside this morning. A little chilly and warm sometimes overnight but denies feeling feverish/night sweats/true chills or rigors. She continues to have some left flank pain and left abdominal pain but which are improved from prior. No lightheadedness or dizziness. Awaiting urine cultures/speciation for antibiotic selection and discharge. Feels comfortable and hopeful for discharge in the morning. Seen with urology present at bedside Physical Exam Physical Exam: General: A&Ox3. NAD. Cooperative. HEENT: Atraumatic, normocephalic. Vision and hearing grossly intact. Pulm: Slightly diminished, previously noted basilar crackles have resolved. Symmetrical chest rise. No increased work of breathing. No respiratory distress. Cardiac: Regular rate and rhythm, -mrg. Radial pulses intact and symmetrical. Abdominal: Mild left CVA tenderness to percussion, improving from prior Extremities: Warm and dry Results & Data Results & Data Vital Signs (Past 12 Hours) Vital Signs Temp Pulse Pulse Resp BP Pulse Ox O2 Del Method 06/27/24 08:07 36.6 C 87 18 112/74 95 Room Air 06/27/24 07:39 Room Air 06/27/24 06:54 75 06/27/24 04:00 36.6 C 69 18 128/82 95 Room Air 06/27/24 00:00 36.7 C 80 18 117/75 96 Room Air PG Care Time/CCT Total # of Minutes Spent Total Time Spent with Patient: Total time spent is greater than 50% in coordination of care (as documented) at patient's floor/unit and/or counseling patient: Coding Level of Care Code 43886 SUB INP/OBS CARE 3/50MIN Diagnoses Complicated UTI (urinary tract infection) N39.0 Bilateral hydronephrosis N13.30 Hypertension I10 RAEJEV (obstructive sleep apnea) G47.33 DALLAS (generalized anxiety disorder) F41.1 Prediabetes R73.03 Bipolar 2 disorder, major depressive episode F31.81 UTI (urinary tract infection) N39.0
--- NOTE | 2024-06-27 15:21 | Pharmacy Report ---
Pharmacy Glycemic Sign Off Nt - Date of Service June 27, 2024 - Assessment & Plan ASSESSMENT: * Pharmacy was consulted by Dr Cosme on 06/26/24 for glycemic control and to write orders per [facility] inpatient glycemic control protocol. * No major changes have been made to antidiabetic regimen. Carb coverage was removed on 3 AM d/t BSG trending downward in patient with A1c = 5.5%. * Patient has been requiring 0-4 units of insulin per day for adequate glycemic control * BSGs ranging 95-120 mg/dl * Do not anticipate further changes in patient status that would quickly deteriorate glycemic control (i.e. patient to be NPO for upcoming procedure, steroids tapering, starting tube feedings, etc). PLAN FOR INPATIENT GLYCEMIC CONTROL: No changes needed to current regimen. * Continue NovoLog per scale ACHS/Q6hrs while NPO * Goal range = 120 - 150 mg/dl * CF = 30 mg/dl/unit * CR = none * Pharmacy is signing off of glycemic consult and will no longer be making adjustments to inpatient regimen. Please feel free to re-consult if needed. Thank you.
[2024-06-28 07:16] LABS: Basophils # (auto) 0.12 K/uL (0.00-0.20); Basophils % (auto) 1.4 %; Eosinophils # (auto) 0.49 K/uL (0.00-0.50); Eosinophils % (auto) 5.6 %; Hematocrit (blood only) 31.4 % (37.0-47.0); Hemoglobin 10.4 g/dl (12.0-16.0); Immature Granulocytes # (auto) 0.09 K/uL (0.01-0.20); Lymphocytes # (auto) 3.33 K/uL (1.20-3.40); Lymphocytes % (auto) 38.4 %; Mean Corpuscular Hemoglobin 30.2 pg (25.0-34.0); Mean Corpuscular Hgb Conc 33.1 g/dL (32.0-36.0); Mean Corpuscular Volume 91.3 fL (80.0-100.0); Mean Platelet Volume 8.9 fL (9.4-12.4); Monocytes # (auto) 0.65 K/uL (0.11-0.59); Monocytes % (auto) 7.5 %; Neutrophils % (auto) 46.1 %; Platelet Count 337 K/uL (130-400); RDW Coefficient of Variation 12.3 % (11.5-14.5); RDW Standard Deviation 40.8 fL (36.4-46.3); Red Blood Count 3.44 M/uL (4.20-5.40); White Blood Count 8.68 K/ul (4.8-10.8)
[2024-06-28 07:32] LABS: Calcium 8.9 mg/dl (8.6-10.3); Creatinine Clr Calc Pharmacy 68.5 ml/min; Potassium 3.7 mmol/L (3.5-5.1)
[2024-06-28 07:50] VITALS: RESP 16
--- NOTE | 2024-06-28 07:52 | Hospitalist Progress Note ---
Date of Service June 28, 2024 Assessment & Plan (1) Complicated UTI (urinary tract infection): Plan: 49-year-old female with a history of asthma, prediabetes, hypertension, nephrolithiasis, anxiety/depression/bipolar/BPD who presented for surgical intervention of a left renal calculus with basket extraction and exchange of stent catheter. [place] is consulted for concerns of developing sepsis and management of medical comorbidities. Sepsis, complicated UTI. Sepsis resolved Meet sepsis criteria due to a leukocytosis of 18, tachycardia. She is hypoxic postanesthesia reports little shortness of breath and a sore throat postprocedure. Has had some fevers recently but does not currently feel feverish and is afebrile on assessment. Suspect with her stone extraction that this is likely urosepsis with possible transient bacteremia Chest x-ray with atelectasis no evidence of superimposed pneumonia, aspiration, or pulmonary edema. Quad screen negative. Hypoxia resolved with supportive care, continue incentive spirometry everyevery 4 hours S/p left stone extraction 06/25 Patient covered empirically for potential complicated UTI in the setting of stone removal with Zosyn given past resistant E. coli cultures + amp sensivite Enterococcus. BC no growth to date. Hemodynamically stable 06/27 UCx and renal urine culture both positive for lactobacillus gasseri. No sensitivities to follow. Recommend Augmentin to complete antibiotics, 5 additional days to complete 7-day course for complicated UTI Past microbiology results: Urine culture, E. coli 04/2024: Resistant to ceftriaxone, Unasyn, Augmentin, cefazolin. Sensitive to fluoroquinolones, ertapenem, cefepime, meropenem Urine culture, E. coli 02/2024. Resistant to Unasyn/Augmentin/ceftriaxone/cefuroxime. Urine culture 02/05, E. coli pansensitive; Enterococcus faecalis ampicillin sensitive. History of asthma No acute exacerbation, continue home medications Prediabetes Metformin held while inpatient SSI continued, adequate control may resume metformin on discharge Hypertension May resume lisinopril on discharge Chronic stable issues: PCOS: Cysts previously noted. Can resume metformin on discharge Bipolar/anxiety/depression/BPD: Continue hydroxyzine, lurasidone, melatonin, oxycarbamazepine, topiramate. Benefit from discontinuing topiramate due to recurrent nephrolithiasis recommend she follow-up with her psychiatrist for medication adjustments Fibromyalgia/chronic back pain: Continue Flexeril, gabapentin, meloxicam. Ibuprofen discontinued while also on Mobic. GERD: Continue Pepcid Hypothyroidism: Continue Synthroid Clinically doing well. Okay for discharge today with Augmentin PO for completion of abx. Follow-up to PCP and urology. (2) Bilateral hydronephrosis: (3) Hypertension: (4) RAJEEV (obstructive sleep apnea): (5) DALLAS (generalized anxiety disorder): (6) Prediabetes: (7) Bipolar 2 disorder, major depressive episode: (8) UTI (urinary tract infection): Admission and Anticipated Discharge Date Admission Date: June 25, 2024 Subjective Seen at the bedside. Some left-sided flank pain overnight but tolerable this morning. No fever chills or sweats. Overall she reports she feels much better. Does feel ready to go home. Is able to void. No incontinence. No questions or concerns at bedside Physical Exam Physical Exam: General: A&Ox3. NAD. Cooperative. HEENT: Atraumatic, normocephalic. Vision and hearing grossly intact. Pulm: CTAB. Symmetrical chest rise. No increased work of breathing. No respiratory distress. Cardiac: Regular rate and rhythm, -mrg. Radial pulses intact and symmetrical. Extremities: Warm and dry Results & Data Results & Data Vital Signs (Past 12 Hours) Vital Signs Temp Pulse Pulse Resp BP Pulse Ox O2 Del Method 06/28/24 07:34 Room Air 06/28/24 07:08 68 06/28/24 03:07 36.5 C 71 18 113/67 92 Room Air 06/28/24 00:00 36.5 C 70 18 119/79 95 Room Air 06/27/24 22:01 69 PG Care Time/CCT Total # of Minutes Spent Total Time Spent with Patient: Total time spent is greater than 50% in coordination of care (as documented) at patient's floor/unit and/or counseling patient: Coding Level of Care Code 44430 SUB INP/OBS CARE 3/50MIN Diagnoses Complicated UTI (urinary tract infection) N39.0 Bilateral hydronephrosis N13.30 Hypertension I10 RAEJEV (obstructive sleep apnea) G47.33 [place] (generalized anxiety disorder) F41.1 Prediabetes R73.03 Bipolar 2 disorder, major depressive episode F31.81 UTI (urinary tract infection) N39.0
--- NOTE | 2024-06-28 08:47 | Urology Progress Note ---
Date of Service June 28, 2024 Assessment & Plan (1) Complicated UTI (urinary tract infection): Plan: Recovering appropriately s/p ureteroscopy and stone removal. Urine cultures growing lactobacillus gasseri. No recent fevers or signs of ongoing sepsis. We will plan to complete treatment as an outpatient with Augmentin. We will plan on stent removal later this week in the urology office. (2) Ureterolithiasis: Admission and Anticipated Discharge Date Admission Date: June 25, 2024 Subjective Feeling well, tolerating diet [place] cold overnight but no fevers WBC stable (8.68), creatinine 1.08 Urine culture with lactobacillus gasseri, has been on Zosyn Physical Exam Physical Exam: Seated in bed, NAD Results & Data Vital Signs (Past 12 Hours) Vital Signs Temp Pulse Pulse Resp BP Pulse Ox O2 Del Method 06/28/24 07:49 36.6 C 73 16 120/79 96 Room Air 06/28/24 07:34 Room Air 06/28/24 07:08 68 06/28/24 03:07 36.5 C 71 18 113/67 92 Room Air 06/28/24 00:00 36.5 C 70 18 119/79 95 Room Air 06/27/24 22:01 69 PG Care Time/CCT Total # of Minutes Spent Total Time Spent with Patient: Total time spent is greater than 50% in coordination of care (as documented) at patient's floor/unit and/or counseling patient: Coding Level of Care Code 30724 SUB INP/OBS CARE 05/09MIN Diagnoses Complicated UTI (urinary tract infection) N39.0 Ureterolithiasis N20.1
--- NOTE | 2024-06-28 08:56 | Discharge Summary ---
Date of Service June 28, 2024 Admission HPI Per Admitting Provider This is a 49-year-old female followed by urology for nephrolithiasis. She underwent cystoscopy, left ureteroscopy and stone removal on 06/25/2024. Postoperatively she was tachycardic and had a low-grade fever concerning for developing sepsis. She was admitted for broad-spectrum antibiotics and supportive care. Admission Exam Per Admitting Provider Constitutional well developed and well nourished; no acute distress Eyes + anicteric sclerae; pupils not irregular Respiratory normal respiratory effort; no respiratory distress, does not use accessory muscles and no cough Cardiovascular well perfused Gastrointestinal (Abdomen) Inspection/Auscultation: abdomen normal to inspection; abdomen not distended Musculoskeletal Extremities: extremities normal to inspection Skin normal turgor; no rashes and no lesions Neurologic moves all extremities and awake Psychiatric Orientation: alert and oriented x 3 Principal Diagnosis Nephrolithiasis, urinary tract infection Discharge Exam Well-appearing, NAD Seated in bed, breakfast tray at the bedside Discharge Data Allergies Allergy/AdvReac Type Severity Reaction Status Date / Time bee venom protein (honey bee) Allergy Severe ANAPHYLAXIS Verified 06/25/24 13:21 tomato Allergy Intermediate Hives Verified 06/25/24 13:21 morphine AdvReac Intermediate HALLUCINATI Verified 06/25/24 13:21 ONS Consultations 06/25/24 16:26 Consult Hospitalist Routine Procedures Performed Operation Date: 06/25/24 14:50 Actual Procedures p Cystoscopy, Ureteronephroscopy, Basket Extraction of the Stone, Exchange of Stent Catheter - Left(Left) - Bud Fernandez MD Ordered Studies 06/25/24 14:50 FL KUB Routine Hospital Course (1) Complicated UTI (urinary tract infection): She was admitted postoperatively and treated with Zosyn. Blood cultures returned negative after 48 hours. Urine cultures demonstrated lactobacillus gasseri. After the first night, she did not have any measured fevers and leukocytosis resolved. She was discharged home on 06/28/2024 on a course of Augmentin. (2) Ureterolithiasis: Ureteral stone was removed. Her kidney was not extensively surveyed due to poor visualization and concern of evolving infection/sepsis. Stent was left in place and we will plan on stent removal as an outpatient. Total Time Total Time Spent Total Time Spent (In Minutes): 15 Discharge Plan Discharge Items Patient Disposition: Home - Self-Care Reason For Visit: Calculus of Kidney Discharge Diagnosis: Left ureteral stone Activity: Resume your previous activity Non-emergency contact: Urologist Call non-emergency contact if: your pain is not controlled, your pain is worsening, your pain is unusual for you, you have a fever and your temperature is above 101 Follow-up/Referrals: Delia Funes CRNP [Primary Care Provider] - Diet: Regular Addtl Attending Provider Instructions: The surgery you had was ureteroscopy with laser lithotripsy and stent placement. Please take all medications as prescribed and keep all follow-ups as scheduled. Please call our office at [phone] with any questions, concerns or need to reschedule appointments for any reason. We are happy to assist you. Medications: please resume your normal medications as previously prescribed. You have been prescribed a course of antibiotics (Augmentin = amoxicillin/clavulanate). Please take these as prescribed. For pain, it is ok to take tylenol alternating with ibuprofen. You can also take AZO, which can be purchased [id number] at the drugstore. Be aware this turns your urine a bright orange color. If you are prescribed a stronger medication you can take this according to instructions on the label. What to expect after your ureteroscopy and stone removal procedure: You may notice small pieces of stone or stone dust/gravel in your urine over the next few days. Drink plenty of liquids to help flush your system. You may notice some blood in your urine. As long as you are able to urinate, this is ok. You have a ureteral stent in place - this will need to be removed. As long as the stent is in place, you may see some blood in the urine. You may have pain in your side when you urinate. We will have you come to the office for stent removal in approximately 7 days. Please call if you have not heard to schedule this appointment in the next 2 days. When to call [facility] at [phone]: Fever of 100F or higher Heavy bleeding Pain that is not controlled with medicine Uncontrolled vomiting Problems urinating or inability to urinate Pending Studies at Discharge: No Stand-Alone Forms: My [employer] Medications and DC Order Prescriptions: New sulfamethoxazole-trimethoprim [Bactrim DS] 800-160 mg tablet 1 tab PO BID 5 Days Qty: 10 0RF amoxicillin-pot clavulanate [Augmentin] 500-125 mg tablet 1 tab PO BID Qty: 14 0RF Continued topiramate [Topamax] 200 mg tablet 200 mg PO BID Qty: 180 2RF levothyroxine 50 mcg tablet 50 mcg PO QAM Qty: 90 3RF Rx Instructions: TAKE THIS MEDICATION AT LEAST 30 MINUTES BEFORE BREAKFAST OR ANY OTHER MEDICATIONS meloxicam 7.5 mg tablet 15 mg PO DAILY Qty: 90 3RF epinephrine [EpiPen] 0.3 mg/0.3 mL auto-injector 0.3 mg IM DIRECTED PRN (Reason: Severe Allergic Reaction) Qty: 2 1RF famotidine 20 mg tablet 20 mg PO DAILY Qty: 90 1RF dicyclomine 20 mg tablet 20 mg PO BID 90 Days Qty: 180 3RF cyclobenzaprine 10 mg tablet 10 mg PO BID Qty: 180 1RF pantoprazole [Protonix] 40 mg tablet,delayed release (DR/EC) 40 mg PO QAM Qty: 90 3RF lisinopril 5 mg tablet 5 mg PO QAM Qty: 100 3RF gabapentin 800 mg tablet 800 mg PO TID Qty: 90 0RF cetirizine [Zyrtec] 10 mg tablet 10 mg PO DAILY Qty: 90 3RF metformin 500 mg tablet extended release 24 hr 500 mg PO QPM Qty: 100 3RF rizatriptan [Maxalt] 10 mg Tablet 10 mg PO UD MDD 30 MG/24 HOURS PRN (Reason: Migraine Headache) Rx Instructions: TAKE ONE TABLET AT ONSET OF MIGRAINE HEADACHE, MAY REPEAT DOSE EVERY TWO HOURS IF NEEDED. MAXIMUM 3 TABLETS/24 HOURS fluticasone propionate [Flonase Allergy Relief] 50 mcg/actuation Mckee,Suspension 2 spray INTRANASAL DAILY PRN (Reason: Allergy Symptoms) Probiotic and Acidophilus 300-250 million cell-mg Capsule 1 cap PO QAM magnesium oxide 400 mg magnesium Tablet 400 mg PO QAM ondansetron 4 mg Tablet,Disintegrating 4 mg PO Q8H PRN (Reason: Nausea) cyanocobalamin (vitamin B-12) [Vitamin B-12] 1,000 mcg Tablet 1,000 mcg PO QAM cranberry 500 mg capsule 125 mg PO QAM cholecalciferol (vitamin D3) 125 mcg (5,000 unit) capsule 5,000 unit PO DAILY docusate sodium 100 mg capsule 100 mg PO QAM vitamin B complex Tablet 1 tab PO QAM sennosides [Senokot] 8.6 mg Tablet 17.2 mg PO QAM PRN (Reason: constipation) Qty: 30 0RF Patient Comments: Not currently taking. Already taking colace albuterol sulfate 2.5 mg /3 mL (0.083 %) solution for nebulization 2.5 mg continuous nebulization Q4H PRN (Reason: Shortness Of Breath Or Wheezing) lidocaine 4 % Adhesive Patch,Medicated 1 patch TOPICAL DAILY PRN (Reason: Pain) oxcarbazepine 150 mg tablet 450 mg PO BID Rx Instructions: 3 TABLET DOSE hydroxyzine HCl 50 mg tablet 100 mg PO HS prazosin 2 mg capsule 4 mg PO HS lurasidone [Latuda] 20 mg tablet 20 mg PO QPM Rx Instructions: must administer with food (at least 350 calories), ordered by walker oxycodone 5 mg tablet 5 mg PO Q8H PRN (Reason: pain) Qty: 9 0RF phenazopyridine [Pyridium] 200 mg tablet 200 mg PO Q8H PRN (Reason: pain) Qty: 6 0RF oxybutynin chloride 5 mg tablet extended release 24hr 5 mg PO DAILY Qty: 10 0RF ketorolac 10 mg tablet 10 mg PO Q8H PRN (Reason: pain) Qty: 10 0RF tamsulosin 0.4 mg Capsule 0.4 mg PO QAM Qty: 30 0RF albuterol sulfate 90 mcg/actuation HFA aerosol inhaler 2 puff INHALATION QID PRN (Reason: sob) fluticasone furoate-vilanterol [Breo Ellipta] 100-25 mcg/dose Blister With Device 1 inh INHALATION QAM Discontinued sulfamethoxazole-trimethoprim [Bactrim DS] 800-160 mg tablet 1 tab PO BID Qty: 14 0RF Discharge Orders: Discharge Order (Routine); Ordered 06/28/24 Ordered By: Bud Fernandez Admission Data Admit Date/Time: 06/25/24 16:26 Attending Provider: Bud Fernandez Admit Provider: Bud Fernandez Primary Care Provider: Delia Funes Other Providers: Justin Rodriguez; Tana Youssef; Otis Etienne; Chetan Reinoso; Reynaldo Trujillo; Gregory Fernando; Aleksandra Finley; Emilee Cuellar; Verna Flynn; Jeannine Schwab; Melquiades Woo; Elva Singh; Sanchez Mcdonald; Otis Hebert; uBd Roberts; Adair Everett; Feli Logan; Tiffanie Escobar; Cassie Flores; Nilda Rincon; Ingrid Banerjee; Berenice Fernández; Xander Telles; Dennis Cosme; Chris Flanagan; Stefani Funes; Cristofer Rodriguez; Twyla Alexis; Reynaldo Reynaga; Shahnaz Garcia; Ashley Jones; Malinda Thornton; Lew Callejas; Silverio Frias; Bret Burch; Anders Condon; Chantel Simpson; Wilmer Larson; Azeb Alonzo; Melo Yung; Mariza Bertrand; Juanita John Coding Level of Care Code 32388 IN/OBS DISCH 30 MIN/LESS Diagnoses Complicated UTI (urinary tract infection) N39.0 Ureterolithiasis N20.1
[2024-06-28] MEDS: LIDOCAINE 5% 1 PATCH TD PRN (10:11)
[2024-06-28 11:50] VITALS: BP 126/70; PULSE 86; TEMP 97.5; O2SAT 95
[2024-07-04 02:13] LABS: Component 2 DNR; Source URETERAL STONE
== END 2024-06-28 14:19 | disposition home or self-care (01) ==
LOC: ASU 12:59 → PACUINP 16:26 → INTOOBSV 16:26 → 2N 18:46